=== PATIENT | male | born 1945 | race Caucasian/White ===

== ENCOUNTER 2022-06-20 13:58 | Outpatient (CLI) | payer MEDICARE, SELFPAY ==
--- OUTSIDE RECORDS SUMMARY | 2022-06-20 14:09 | XMS_ITS | Encounter Summary ---
:1945 Author Organization [place] Address [address] [place] [address] Care Team Providers Name Role Phone Adonis Grullon PA-C Unavailable Ruddy Giron DPM Unavailable Thomas Giron MD Primary Care Provider Thomas Giron MD Unavailable Reason for Visit Reason Comments Medication Refill Encounter Details Date Type Department Care Team Description 07/26/2021 Refill [facility] Thomas Singleton MD Medication Refill [place] [address] [place] [address] 150 [phone] [place] [address] [phone] Social History Tobacco Use Types Packs/Day Years Used Date Never Smoker Cigars 0 0 Smokeless Tobacco: Never Used Alcohol Use Standard Drinks/Week Comments No 0 (1 standard drink = 0.6 oz pure not fo r about 35 years (as of 2014) alcohol) Alcohol Habits Answer Date Recorded How often do you have a drink Not asked containing alcohol? How many drinks containing alcohol do Not asked you have on a typical day when you are drinking? How often do you have six or more Not asked drinks on one occasion? Comment: not for about 35 years (as of 05/08/20152014) Sex Assigned at Date Recorded Not on file documented as of this encounter Miscellaneous Notes Telephone Encounter - Jae Schwarz RN - 07/26/2021 3:21 PM CST Routing refill request to provider for review/approval because: Routing to PCP to review, last filled by different provider Jae Schwarz RN [facility] Triage Nurse D OUTSOLE STITCHER documented in this encounter Plan of Treatment Not on filedocumented as of this encounter Visit Diagnoses Diagnosis Benign essential hypertension Essential hypertension, benign documented in this encounter Care Teams Screen Printing Supervisor Relationship Specialty Start Date End Date Thomas Giron MD PCP - General Internal Medicine 07/09/[address] [place] [address] Adonis Grullon, Assigned Neuroscience 11/29/20 PA-C Provider [address] [place] [id number] Ruddy Giron, Assigned Musculoskeletal 01/28/21 DPM Provider [address] [facility] [address] [place], [place] [id number] Thomas Giron MD Assigned PCP 06/24/[address] [place] [address] documented as of this encounter
--- OUTSIDE RECORDS SUMMARY | 2022-06-20 14:09 | XMS_ITS | Encounter Summary ---
:1945 Author Organization [place] Address [address] [facility] [place] [address] Care Team Providers Name Role Phone Adonis Grullon PA-C Unavailable Ruddy Giron DPM Unavailable Thomas Giron MD Primary Care Provider Thomas Giron MD Unavailable Reason for Visit Reason Comments Medication Refill Encounter Details Date Type Department Care Team Description 05/13/2022 Refill [facility] Thomas Giron MD Medication Refill [place] [address] [facility] [address] [facility], [address] [place] [address] [place] [address] [phone] Social History Tobacco Use Types Packs/Day Years [...] this encounter Miscellaneous Notes Telephone Encounter - Camilla Gastelum RN - 05/14/2022 4:01 PM CDT Prescription approved per [facility] Refill Protocol. Camilla Gastelum BOOKMAKER MAP MSN [facility] [place] documented in this encounter Plan of Treatment Not on filedocumented as of this encounter Visit Diagnoses Diagnosis Routine general medical examination at a health care facility documented in this encounter Care Teams Surgery Scheduler Relationship Specialty Start Date End Date Thomas Giron MD PCP - General Internal Medicine 07/09/[address] [place] [address] Adonis Grullon, Assigned Neuroscience 11/29/20 PA-C Provider [address] [place] [phone] Ruddy Giron, Assigned Musculoskeletal 01/28/21 DPM Provider [address] [place], [place] [address] Thomas Giron MD Assigned PCP 06/24/[address] [place] [id number] documented as of this encounter
--- OUTSIDE RECORDS SUMMARY | 2022-06-20 14:09 | XMS_ITS | Encounter Summary ---
:1945 Author Organization [place] Address [address] [place] [address] Care Team Providers Name Role Phone Adonis Grullon PA-C Unavailable Ruddy Giron DPM Unavailable Thomas Giron MD Primary Care Provider Thomas Giron MD Unavailable Reason for Visit Reason Onset Date Comments Forms 07/09/2021 disability parking c ert form Encounter Details Date Type Department Care Team Description 07/09/2021 [facility] Thomas Giron, Forms (disability Clinic Angy WISDOM parking cert form) [address] [facility], [address] [facility] [address] [place] [address] [place] [address] Social History Tobacco Use Types Packs/Day Years [...] Assigned at Date Recorded Not on file COVID-19 Exposure Response Date Recorded In the last month, have you been in contact Unable to assess 06/20/2021 9:47 PM CDT with someone who was confirmed or suspected to have Coronavirus / COVID-19? documented as of this encounter Miscellaneous Notes Telephone Encounter - Jade Ward - 07/10/2021 2:54 PM CDT Completed for mailed to Pt. Copy sent to [facility] and placed in accordion file-[place] Pod Telephone Encounter - Jade Ward - 07/10/2021 12:18 PM CDT Form placed on Dr. Giron' desk Telephone Encounter - Natalee Carter - 07/09/2021 12:10 PM CDT Forms/Letter Request Name of form/letter: disability parking cert form Do we have the form/letter: Yes: at [facility] When is form/letter needed by: selwyn How would you like the form/letter returned: Mail envelop included with form Okay to leave a detailed message? No Cell number on file: Telephone Information: documented in this encounter Plan of Treatment Not on filedocumented as of this encounter Visit Diagnoses Not on filedocumented in this encounter Care Teams Deputy Register Of Deeds Relationship Specialty Start Date End Date Thomas Giron MD PCP - General Internal Medicine 07/09/21 [address] [place] [address] Adonis Grullon, Assigned Neuroscience 11/29/20 PA-C Provider [address] [place] [id number] Ruddy Giron, Assigned Musculoskeletal 01/28/21 DPM Provider [address] [facility] [address] [place] [address] Thomas Giron MD Assigned PCP 06/24/21 [address] [place], [place] [id number] documented as of this encounter
--- OUTSIDE RECORDS SUMMARY | 2022-06-20 14:09 | XMS_ITS | Encounter Summary ---
:1945 Author Organization [place] Address [facility] [place] [address] Care Team Providers Name Role Phone RichaAdonis perez Keon GREENE Unavailable Thomas Singleton MD Primary Care Provider Ruddy GironM Unavailable Thomas Singleton MD Unavailable Encounter Details Date Type Department Care Team Description 06/20/2021 Travel Social History Tobacco Use Types Packs/Day Years [...] / COVID-19? documented as of this encounter Plan of Treatment Not on filedocumented as of this encounter Visit Diagnoses Not on filedocumented in this encounter Care Teams Highballer Relationship Specialty Start Date End Date Thomas Singleton MD PCP - General Internal Medicine 01/10/21 07/08/[address] [place] [phone] Adonis Grullon, Assigned Neuroscience 11/29/20 PA-C Provider [address] [place], [place] [phone] Ruddy Giron, Assigned Musculoskeletal 01/28/21 DPM Provider [address] [facility] [address] [place] [address] Thomas Singleton MD Assigned PCP 02/25/21 06/23/[address] [place] [phone] documented as of this encounter
--- OUTSIDE RECORDS SUMMARY | 2022-06-20 14:09 | XMS_ITS | Encounter Summary ---
:1945 Author Organization [place] Address [address] [place] [address] Care Team Providers Name Role Phone Adonis Grullon PA-C Unavailable Ruddy Girno DPM Unavailable Thomas Giron MD Primary Care Provider Thomas Giron MD Unavailable Reason for Visit Reason Comments Medication Refill Encounter Details Date Type Department Care Team Description 11/05/2021 Refill [facility] Thomas Singleton MD Medication Refill [place] [address] [place] [address] [phone] [place] [address] [phone] Social History Tobacco Use Types Packs/Day Years [...] this encounter Miscellaneous Notes Telephone Encounter - Sherry Beavers RN - 11/05/2021 5:39 PM CST Prescription approved per [facility] Refill Protocol. Sherry Booker RN EP Triage E ASSISTANT documented in this encounter Plan of Treatment Not on filedocumented as of this encounter Visit Diagnoses Diagnosis Benign essential hypertension Essential hypertension, benign documented in this encounter Care Teams Technical Information Specialist Relationship Specialty Start Date End Date Thomas Giron MD PCP - General Internal Medicine 07/09/[address] [place], [place] [address] Adonis Grullon, Assigned Neuroscience 11/29/20 PA-C Provider [address] [place] [phone] Ruddy Giron, Assigned Musculoskeletal 01/28/21 DPM Provider [address] [facility] [address] [place], [place] [address] Thomas Giron MD Assigned PCP 06/24/[address] [place], [place] [address] documented as of this encounter
--- OUTSIDE RECORDS SUMMARY | 2022-06-20 14:09 | XMS_ITS | Encounter Summary ---
:1945 Author Organization [place] Address [address] [facility] [place] [address] Care Team Providers Name Role Phone Adonis Grullon PA-C Unavailable Ruddy Giron DPM Unavailable Thomas Giron MD Primary Care Provider Thomas Giron MD Unavailable Reason for Visit Reason Comments Medication Refill Encounter Details Date Type Department Care Team Description 05/20/2022 Refill [facility] Thomas Giron MD Medication Refill [place] [address] [facility] [address] [facility], [address] [place] [address] [place] [address] [phone] Social History Tobacco Use Types Packs/Day Years [...] this encounter Miscellaneous Notes Telephone Encounter - Julianna Aly RN - 05/22/2022 12:43 PM CDT Prescription approved per [facility] Refill Protocol. 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
--- OUTSIDE RECORDS SUMMARY | 2022-06-20 14:09 | XMS_ITS | Encounter Summary ---
:1945 Author Organization [place] Address [address] [facility] [place] [address] Care Team Providers Name Role Phone Adonis Grullon PA-C Unavailable Ruddy Giron DPM Unavailable Thomas Giron MD Primary Care Provider Thomas Giron MD Unavailable Encounter Details Date Type Department Care Team Description 07/09/2021 Telephone [facility] Thomas Singleton MD [address] [phone] (Wo rk) Social History Tobacco Use Types Packs/Day Years [...] on filedocumented in this encounter Care Teams Lifeguard Relationship Specialty Start Date End Date Thomas Giron MD PCP - General Internal Medicine 07/09/[address] [place] [address] Adonis Grullon, Assigned Neuroscience 11/29/20 PA-C Provider [address] [place] [phone] Ruddy Giron, Assigned Musculoskeletal 01/28/21 DPM Provider [address] [facility] [address] [place], [place] [address] Thomas Giron MD Assigned PCP 06/24/[address] [place] [address] documented as of this encounter
--- OUTSIDE RECORDS SUMMARY | 2022-06-20 14:09 | XMS_ITS | Clinical Summary ---
:1945 Author Organization [place] Address [address] [place] [address] Care Team Providers Name Role Phone Adonis Grullon PA-C Unavailable Mack Ruddy Wang DPM Unavailable Thomas Giron MD Primary Care Provider Thomas Giron MD Unavailable Allergies No known active allergies Medications Medication Sig Dispensed Refills Start Date End Date Status order for DME Equipment being ordered: CPAP 0 Active Patient Ruddy Calhoun was set up at [place] on May 25, 2015. Patient received a Resmed Airsense 10 Auto. Pressures were set at Auto 5 - 15 cm H2O. Patient? s ramp is 0 cm H2O for Off and FLEX/EPR is A Flex 2. Patient receiv ed a [employer] Mask name: Simplus Full Face mask Size Medium, heated tubing and heated humidifier. Patient is enrolled in the STM Program and does need to meet comp liance. Patient has a follow up on TBD with Chip Antonio MAI dorzolamide-timolo INSTILL 1 DROP 2 10/29/2018 Active l (COSOPT) 2-0.5 % INTO BOTH EYES ophthalmic TWICE DAILY solution lisinopril-hydroch TAKE 1 TABLET BY 90 tablet 1 11/05/2021 Active lorothiazide MOUTH EVERY DAY (ZESTORETIC) 20-25 MG tabletIndications: Benign essential hypertension finasteride TAKE 1 TABLET (5 90 tablet 0 05/21/2022 Active (PROSCAR) 5 MG MG) BY MOUTH tabletIndications: DAILY PATIENT Routine general NEEDS TO medical SCHEDULE examination at a [facility] care facility allopurinol TAKE 1 TABLET BY 90 tablet 0 05/22/2022 Active (ZYLOPRIM) 300 MG MOUTH EVERY DAY tabletIndications: Idiopathic chronic gout of multiple sites without tophus triamterene-HCTZ 5-2 PER INSUR. 90 capsule 0 06/06/2022 Active (DYAZIDE) 37.5-25 TAKE 1 CAPSULE MG BY MOUTH EVERY capsuleIndications DAY : Benign essential hypertension allopurinol Take 1 tablet 90 tablet 2 07/26/2021 Dis continued (ZYLOPRIM) 300 MG (300 mg) by 2 tabletIndications: mouth daily Idiopathic chronic gout of multiple sites without tophus triamterene-HCTZ 5-2 PER INSUR. 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 Provider to review Essential hypertension 05/08/2015 Resolved Problems Problem Noted Date Resolved Date Obesity (BMI 35.0-39.9) with comorbidity 12/04/2018 11/13/2020 Encounters Date Type Specialty Care Team Description 06/05/2022 Refill Family Practice Thomas Singleton MD Medic ation Refill 05/20/2022 Refill Family Practice Thomas Giron MD Medic ation Refill 05/19/2022 Refill Family Practice Thomas Giron MD Medic ation Refill 05/13/2022 Refill Family Practice Thomas Giron MD Medic ation Refill from Last 3 Months Immunizations Name Administration Dates Next Due COVID-19,PF,Tavo 11/24/2020 HEPA 04/09/2005, 05/14/2000 HepB 03/30/2001, 06/16/2000, 05/14/2000 Influenza (High Dose) 3 valent vaccine 09/25/2016 Influenza (IIV3) PF 07/23/2012, 07/16/2006 Meningococcal (Menomune??) 03/27/2012, 04/09/2005, 0 Pneumo Conj 13-V (2010&after) 09/20/2014 Pneumococcal 23 valent 03/27/2012 Poliovirus, inactivated (IPV) 05/14/2000 TD (ADULT, 7+) 04/09/2005, 05/14/2000 TDAP Vaccine (Adacel) 09/20/2014, 12/12/2008 Tdap (Adult) Unspecified Formulation 12/19/2005 Typhoid IM 04/09/2005, 04/26/2002 Typhoid Oral 12/12/2008 Yellow Fever 03/27/2012, 06/16/2000 Family History Medical History Relation Comments Cerebrovascular Disease Mother Diabetes Sister Relation Status Comments Mother Sister Social History Tobacco Use Types Packs/Day Years Used Date Never Smoker Cigars 0 0 Smokeless Tobacco: Never Used Tobacco Cessation: Counseling Given: Yes Alcohol Use Standard Drinks/Week Comments No 0 [...] Assigned at Date Recorded Not on file Last Filed Vital Signs Vital Sign Reading Time Taken Comments Blood Pressure 130/81 06/05/2021 7:29 AM CDT Pulse 68 06/05/2021 7:29 AM CDT Temperature 36.6 ??C (97.8 ??F) 06/05/2021 7:29 AM CDT Respiratory Rate 20 06/05/2021 7:29 AM CDT Oxygen Saturation 94% 06/05/2021 7:29 AM CDT Inhaled Oxygen Concentration - - Weight 107 kg (236 lb) 06/05/2021 7:29 AM CDT Height 167.6 cm (5' 6) 06/05/2021 7:29 AM CDT Body Mass Index 38.09 06/05/2021 7:29 AM CDT Plan of Treatment Health Maintenance Due Date Last Done Comments ANNUAL REVIEW OF HM ORDERS 1945 CT COLONOGRAPHY 1945 FIT-DNA (Cologuard) 1945 FLEX SIG 1945 COLONOSCOPY 1956 HEPATITIS C SCREENING 1964 ZOSTER IMMUNIZATION (1 of 1996 2) AORTIC ANEURYSM SCREENING 2011 (SYSTEM ASSIGNED) COVID-19 Vaccine (2 - 01/19/2021 11/24/2020 Booster for Tavo series) PHQ-2 (once per calendar 09/15/2021 06/05/2021, 03/06/2021, year) 11/13/2020, Additional history exists INFLUENZA VACCINE (#1) 2022 09/25/2016, 07/23/2012, 07/16/2006 FALL RISK ASSESSMENT 06/05/2022 06/05/2021, 11/13/2020, 03/29/2020, Additional history exists MEDICARE ANNUAL WELLNESS 06/05/2022 06/05/2021, 06/05/2021, VISIT 03/29/2020, Additional history exists COLORECTAL CANCER SCREENING 06/18/2022 FIT 06/18/2022 06/18/2021, 02/01/2019, 05/15/2017 DTAP/TDAP/TD IMMUNIZATION 09/20/2024 09/20/2014, 12/12/2008 , (6 - Td or Tdap) 12/19/2005, Additional history exists ADVANCE CARE PLANNING 06/05/2026 06/05/2021, 04/22/2020 LIPID 06/05/2026 06/05/2021, 03/29/2020, 01/26/2019, Additional history exists IPV IMMUNIZATION Aged Out 05/14/2000 No longer eligi ble based on patient 's age to complete this topic HEPATITIS B IMMUNIZATION Aged Out 03/30/2001, 06/16/2000, No longer eligible 05/14/2000 based on patient 's age to complete this topic MENINGITIS IMMUNIZATION Aged Out 03/27/2012, 04/09/2005, No longer eligible 06/16/2000 based on patient 's age to complete this topic Pneumococcal Vaccine: 65+ Completed 09/20/2014, 03/27/2012 Years Medical Devices Implanted Type Area Spinner Open End Device Shelf Model / Identifier Expiration Serial / Lot Date 5.5mm Footprint Suture [place] Left: [employer] 01/03/2021 [id number] / Implanted: Qty: 1 on 12/09/2018 by Ammy Grigsby MD at [facility] / [id number] Insurance Payer Benefit Plan / Subscriber ID Effective Dates Phone Addre ss Type Group BCBS BCBS MEDICARE [id number] 2018-Luis Miguel [phone] [address] [address] Medicare ADVANTAGE t 0 [place] [address] Care Teams Entertainment Agent Relationship Specialty Start Date End Date Thomas Giron MD PCP - General Internal Medicine 07/09/[address] [place] [address] Adonis Grullon, Assigned Neuroscience 11/29/20 PA-C Provider [address] [place] [phone] Ruddy Giron, Assigned Musculoskeletal 01/28/21 DPM Provider [address] [facility] [address] [place] [address] Thomas Giron MD Assigned PCP 06/24/[address] [place] [address]
--- OUTSIDE RECORDS SUMMARY | 2022-06-20 14:09 | XMS_ITS | Encounter Summary ---
:1945 Author Organization [place] Address [address] [facility] [place] [address] Care Team Providers Name Role Phone Adonis Grullon PA-C Unavailable Ruddy Giron DPM Unavailable Thomas Giron MD Primary Care Provider Thomas Giron MD Unavailable Reason for Visit Reason Onset Date Comments Refill Request 07/26/2021 allopurinol Encounter Details Date Type Department Care Team Description 07/26/2021 Refill [facility] None Ref ill Request (allopurinol) [address], [address] [place] [address] Social History Tobacco Use Types Packs/Day Years [...] this encounter Miscellaneous Notes Telephone Encounter - Ana Maria Causey RN - 07/26/2021 3:43 PM CST Prescription approved per [facility] Refill Protocol. 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
--- OUTSIDE RECORDS SUMMARY | 2022-06-20 14:09 | XMS_ITS | Encounter Summary ---
:1945 Author Organization [place] Address [address] [facility] [place] [address] Care Team Providers Name Role Phone Adonis Grullon PA-C Unavailable Ruddy Giron DPM Unavailable Thomas Giron MD Primary Care Provider Thomas Giron MD Unavailable Reason for Visit Reason Onset Date Comments Needs prescription for machine 11/26/2021 Encounter Details Date Type Department Care Team Description 11/26/2021 Telephone [facility] Coordinator, Ur Needs p rescription for [facility] machine [address] [address] Social History Tobacco Use Types Packs/Day Years [...] this encounter Miscellaneous Notes Telephone Encounter - Adonis Grullon PA-C - 11/27/2021 12:05 PM CDT Order placed for replacement machine. I left a message stating the order was placed and that if he wanted the order forwarded somewhere other than [facility], call the clinic so we can know where to send it. Adonis Grullon PA-C Telephone Encounter - Bibiana Ferguson - 11/26/2021 1:33 PM CDT Reason for Call: Other call back Detailed comments: Pt says Dr advised him to get a different/new machine, pt has checked machine is in and available, but now pt needs a prescription to get it, can Dr. Grullon write prescription for pt,please call pt to advise Phone Number Patient can be reached at: Home number on file [phone] (home) Best Time: ANY Can we leave a detailed message on this number? YES Call taken on 11/26/2021 at 1:34 PM by Bibiana Ferguson documented in this encounter Plan of Treatment Not on filedocumented as of this encounter Visit Diagnoses Diagnosis DIANNE (obstructive sleep apnea) - Primary Obstructive sleep apnea (adult) (pediatr ic) documented in this encounter Care Teams Acute Dialysis Nurse Relationship Specialty Start Date End Date Thomas Giron MD PCP - General Internal Medicine 07/09/[address] [place] [address] Adonis Grullon, Assigned Neuroscience 11/29/20 JC Provider [address] [place] [address] Ruddy Giron, Assigned Musculoskeletal 01/28/21 DPM Provider [address] [facility] [address] [place], [place] [address] Thomas Giron MD Assigned PCP 06/24/[address] [place] [address] documented as of this encounter
--- OUTSIDE RECORDS SUMMARY | 2022-06-20 14:09 | XMS_ITS | Encounter Summary ---
:1945 Author Organization [place] Address [address] [place] [address] Care Team Providers Name Role Phone Adonis Grullon PA-C Unavailable Ruddy Giron DPM Unavailable Thomas Giron MD Primary Care Provider Thomas Giron MD Unavailable Reason for Visit Reason Comments Medication Refill Encounter Details Date Type Department Care Team Description 05/19/2022 Refill [facility] Thomas Giron MD Medication Refill [place] [address] [facility] [address] [facility], [address] [place] [address] [place] [address] [phone] Social History Tobacco Use Types Packs/Day Years [...] Telephone Encounter - Camilla Gastelum RN - 05/21/2022 10:55 AM CDT 90 tablets with 0 refills last sent on 05/14/2022 No change in pharmacy. Last OV with Dr. Giron was 06/05/2021 No future appointment scheduled. Prescription approved per [facility] Refill Protocol. MyChart message sent. Camilla Gastelum INSURANCE VERIFICATION REP MSN [facility] documented in this encounter Plan of Treatment Not on filedocumented as of this encounter Visit Diagnoses Diagnosis Routine general medical examination at a health care facility documented in this encounter Care Teams Brick Pointer Relationship Specialty Start Date End Date Thomas Giron MD PCP - General Internal Medicine 07/09/[address] [place], [place] [phone] Adonis Grullon, Assigned Neuroscience 11/29/20 PA-C Provider [address] [place], [place] [phone] Ruddy Giron, Assigned Musculoskeletal 01/28/21 DPM Provider [address] [facility] [address] [place] [address] Thomas Giron MD Assigned PCP 06/24/[address] [place], [place] [address] documented as of this encounter
--- OUTSIDE RECORDS SUMMARY | 2022-06-20 14:09 | XMS_ITS | Encounter Summary ---
:1945 Author Organization [place] Address [facility] [place] [address] Care Team Providers Name Role Phone RichaAdonis perez Keon GREENE Unavailable Thomas Singleton MD Primary Care Provider Ruddy GironM Unavailable Thomas Singleton MD Unavailable Encounter Details Date Type Department Care Team Description 06/05/2021 Travel Social History Tobacco Use Types Packs/Day [...] last month, have you been in contact with No / Unsure 06/05/2021 7:16 AM CDT someone who was confirmed or suspected to have Coronavirus / COVID-19? documented as of this encounter Plan of Treatment Not on filedocumented as of this encounter Visit Diagnoses Not on filedocumented in this encounter Care Teams Tinsmith Helper Relationship Specialty Start Date End Date Thomas Singleton MD PCP - General Internal Medicine 01/10/21 07/08/[address] [place] [address] [phone] Adonis Grullon, Assigned Neuroscience 11/29/20 PA-C Provider [address] [place], [place] [phone] Ruddy Giron, Assigned Musculoskeletal 01/28/21 DPM Provider [address] [facility] [address] [place] [address] Thomas Singleton MD Assigned PCP 02/25/21 06/23/[address] [place] [phone] documented as of this encounter
--- OUTSIDE RECORDS SUMMARY | 2022-06-20 14:09 | XMS_ITS | Encounter Summary ---
:1945 Author Organization [place] Address [address] [facility] [address] Care Team Providers Name Role Phone Adonis Grullon PA-C Unavailable Ruddy Giron DPM Unavailable Thomas Giron MD Primary Care Provider Thomas Giron MD Unavailable Reason for Visit Reason Comments Medication Refill Encounter Details Date Type Department Care Team Description 06/05/2022 Refill [facility] Thomas Singleton MD Medication Refill [place] [address] [place] [address] [address] [phone] [place] [address] [phone] Social History Tobacco Use Types Packs/Day Years [...] this encounter Miscellaneous Notes Telephone Encounter - Lianet Jenkins - 06/06/2022 12:53 PM CDT Letter and mychart sent Telephone Encounter - Nadya Simon RN - 06/06/2022 10:24 AM CDT Medication is being filled for 1 time refill only due to: Patient needs to be seen because it has been more than one year since last visit. Routing to [employer]. The Pt is due for a visit with PCP Nadya Velez RN, BSN documented in this encounter Plan of Treatment Not on filedocumented as of this encounter Visit Diagnoses Diagnosis Benign essential hypertension Essential hypertension, benign documented in this encounter Care Teams Self Pay Specialist Relationship Specialty Start Date End Date Thomas Giron MD PCP - General Internal Medicine 07/09/[address] [place] [id number] Adonis Grullon, Assigned Neuroscience 11/29/20 PA-C Provider [address] [place] [address] Ruddy Giron, Assigned Musculoskeletal 01/28/21 DPM Provider [address] [facility] [address] [place], [place] [address] Thomas Giron MD Assigned PCP 06/24/[address] [place] [address] documented as of this encounter
--- OUTSIDE RECORDS SUMMARY | 2022-06-20 14:09 | XMS_ITS | Encounter Summary ---
:1945 Author Organization [place] Address [address] [facility] [address] Care Team Providers Name Role Phone Adonis Grullon PA-C Unavailable Thomas Singleton MD Primary Care Provider Ruddy Giron DPM Unavailable Thomas Singleton MD Unavailable Encounter Details Date Type Department Care Team Description 06/18/2021 [facility] Encounter for [facility] Laboratory adult health care examinatio n [address] [place], [place] [phone] Social History Tobacco Use Types Packs/Day Years [...] Not on filedocumented as of this encounter Procedures Procedure Name Priority Date/Time Associated Diagnosis Comme nts FECAL COLORECTAL Routine 06/18/2021 12:00 Encounter for Result s for this CANCER SCREEN FIT PM CDT preventative adult proc edure are in health care the results examination section. documented in this encounter Results Fecal colorectal cancer screen (FIT) (06/18/2021 12:00 PM CDT) Analysis Performed At Patho logist Time Signature Occult Blood Negative Negative 06/20/2021 [facility] Screen FIT 10:12 PM CDT Specimen Anatomical Collection Method Collection Time Receive d Time (Source) Location / / Volume Laterality Stool RECTAL CONTENTS / Non-blood 06/18/2021 12:00 2020 9:48 Unknown Collection / PM CDT PM CDT Unknown Thomas Giron MD LAB - STOOLS ORDERABLES Performing Organization Address City/State/ZIP Code Phon [place] [address] Lab [address] [facility] [address], [address] [place] [address], [place] [address] [facility], Room 3580 documented in this encounter Visit Diagnoses Diagnosis Encounter for preventative adult health care examination documented in this encounter Care Teams Flexographic Press Operator Relationship Specialty Start Date End Date Thomas Singleton MD PCP - General Internal Medicine 01/10/21 07/08/21 [address] [place] [address] [phone] Adonis Grullon, Assigned Neuroscience 11/29/20 PA-C Provider [address] [place], [place] [phone] Ruddy Giron, Assigned Musculoskeletal 01/28/21 DPM Provider [address] [facility] [address] [place] [address] Thoams Singleton MD Assigned PCP 02/25/21 06/23/[address] [place] [address] [phone] documented as of this encounter
--- OUTSIDE RECORDS SUMMARY | 2022-06-20 14:09 | XMS_ITS | Encounter Summary ---
:1945 Author Organization [place] Address [address] [facility] [place] [address] Care Team Providers Name Role Phone Adonis Grullon PA-C Unavailable Ruddy Giron DPM Unavailable Thomas Giron MD Primary Care Provider Thomas Giron MD Unavailable Reason for Visit Reason Comments Medication Refill Encounter Details Date Type Department Care Team Description 11/05/2021 Refill [facility] Thomas Giron MD Medication Refill [place] [address] [facility] [address] [facility], [address] [place] [address] [place] [address] [phone] Social History Tobacco Use Types Packs/Day Years [...] 11/05/2021 5:39 PM CST Prescription approved per [facility] Refill Protocol. Sherry Booker RN EP Triage H DEVELOPER documented in this encounter Plan of Treatment Not on filedocumented as of this encounter Visit Diagnoses Diagnosis Benign essential hypertension Essential hypertension, benign documented in this encounter Care Teams Forming Acid Dumper Relationship Specialty Start Date End Date Thomas Giron MD PCP - General Internal Medicine 07/09/[address] [place], [place] [phone] Adonis Grullon, Assigned Neuroscience 11/29/20 PA-C Provider [address] [place] [phone] Ruddy Giron, Assigned Musculoskeletal 01/28/21 DPM Provider [address] [facility] [address] [place], [place] [address] Thomas Giron MD Assigned PCP 06/24/[address] [place], [place] [address] documented as of this encounter
--- OUTSIDE RECORDS SUMMARY | 2022-06-20 14:10 | XMS_ITS | Encounter Summary ---
:1945 Author Organization [place] Address [address] [place] [address] Care Team Providers Name Role Phone Juan José Michelle MD Primary Care Provider Juan José Michelle MD Unavailable Reason for Visit Reason Onset Date Comments Refill Request 09/06/2020 lisinopril-hctz Encounter Details Date Type Department Care Team Description 09/06/2020 Refill [facility] Juan José Michelle MD Refill Request [place] [address] [facility] (lisinopril-hctz) [address] [facility] [address] [place] [phone] (Wo rk) Social History Tobacco Use Types Packs/Day Years Used Date Never Smoker Cigars Smokeless Tobacco: Never Used Alcohol Use Standard [...] on file documented as of this encounter Plan of Treatment Not on filedocumented as of this encounter Visit Diagnoses Diagnosis Benign essential hypertension Essential hypertension, benign documented in this encounter Care Teams Pain Management Nurse Relationship Specialty Start Date End Date Juan José Michelle MD PCP - General Internal Medicine 05/08/15 01/09/21 Juan José Michelle MD Assigned PCP 07/26/16 12/30/20 [address] [facility] 150 [facility] [place] [phone] documented as of this encounter
--- OUTSIDE RECORDS SUMMARY | 2022-06-20 14:10 | XMS_ITS | Encounter Summary ---
:1945 Author Organization [place] Address [address] [place] [address] Care Team Providers Name Role Phone Juan José Michelle MD Primary Care Provider Juan José Michelle MD Unavailable Reason for Visit Reason Onset Date Comments RECHECK 04/05/2020 recheck pap use, d/l in synopsis Encounter Details Date Type Department Care Team Description 04/05/2020 Virtual Visit [facility] Adonis Grullon DIANNE ([facility] Angy Herbert PA-C sleep apnea) (Primary [address]) [place] [address] [address] [place] [address] [place] [address] Social History Tobacco Use Types Packs/Day Years [...] been in contact with No / Unsure 04/04/2020 11:30 AM CDT someone who was confirmed or suspected to have Coronavirus / COVID-19? documented as of this encounter Last Filed Vital Signs Vital Sign Reading Time Taken Comments Blood Pressure - - Pulse - - Temperature - - Respiratory Rate - - Oxygen Saturation - - Inhaled Oxygen Concentration - - Weight 97.5 kg (215 lb) 04/04/2020 11:28 AM CDT Height 167.6 cm (5' 5.98) 04/04/2020 11:28 AM CDT Body Mass Index 34.72 04/04/2020 11:28 AM CDT documented in this encounter Progress Notes Adonis Grullon PA-C - 04/05/2020 10:00 AM CDT Ruddy Calhoun is a 74 year old male who is being evaluated via a billable telephone visit. The patient has been notified of following: This telephone visit will be conducted via a call between you and your physician/provider. We have found that certain health care needs can be provided without the need for a physical exam. This service lets us provide the care you need with a short phone conversation. If a prescription is necessary we can send it directly to your pharmacy. If lab work is needed we can place an order for that and you can then stop by our lab to have the test done at a later time. Telephone visits are billed at different rates depending on your insurance coverage. During this emergency period, for some insurers they may be billed the same as an in-person visit. Please reach out to your insurance provider with any questions. If during the course of the call the physician/provider feels a telephone visit is not appropriate, you will not be charged for this service. Patient has given verbal consent for Telephone visit? Yes What phone number would you like to be contacted at? [phone] How would you like to obtain your AVS? Mail a copy Does not have video capability. CPAP Follow-Up Visit: Date on this visit: 04/05/2020 Ruddy Calhoun has a follow-up visit today to review his CPAP use for DIANNE. His medical history is significant for HTN, gout, obesity, hyperlipidemia. ?? His main symptoms were loud snoring and observed apneas. Diagnostic home study showed (05/11/2015): Wt was 234#. AHI: 56.2/hr TRE: 47.2/hr Supine AHI: 49.7/hr Lateral AHI: 52.9/hr on left and 59/hr on right?? Average SpO2: 88% Lowest Desaturation: 64%. Time Spent Below 89%: 198.3 minutes. He had a CPAP titration study on 08/29/2015. CPAP was titrated to 11 cm, but REM was not obtained supine.?? He loves CPAP. He has nothing new to report. PAP machine: ResMed. Pressure settings: 11-15 cm The compliance data shows that the patient used the CPAP for 30/30 nights, 100% of nights for >4 hours. The 95th% pressure is 12.2 cm. The 95th% leak is 8.3 lpm. The average nightly usage is 422 min. The average AHI is 0.9/hr. Interface: Mask: full face mask. Cleans everything about once per week. He replaces the cushion if he starts tonotice leak. Chin strap: No Leak: No Using Humidifier: Yes. It rarely will run out of water. He is comfortable with the temperature and humidity level. Condensation in hose or mask: No Difficulties with therapy: [-] Snoring with CPAP: his has not commented [-] Difficulty tolerating the pressure: wonders if it could be higher. Most noticeable when he firstputs it on. [-] Epistaxis/dry nose: [-] Nasal congestion: once in a while [-] Dry mouth: once in a while [-] Mouth breathing: [-] Pain/skin breakdown: a little on the bridge of his nose. Just redness, does not hurt, nothing hecan't live with. Improvements noted with CPAP: He depends on the machine. [+] waking up more refreshed [+] sleeping better with less arousals [+] nocturia improved [+] improved energy level during the day Weight change since sleep study: Bedtime: 10:30 PM. He falls asleep quickly. Wake time: 7:30 AM. He wakes to urinate 1-2 times per night. About half of nights, he may be up for an hour. He is not bothered by that. He considers it his creative time. He naps for 20-30 minutes most days in the afternoon. He denies inadvertent dozing. Past medical/surgical history, family history, social history, medications and allergies were reviewed. Problem List: Patient Active Problem List Diagnosis Date Noted ??? Routine general medical examination at a health care facility 01/26/2019 Priority: Medium ??? Obesity (BMI 35.0-39.9) with comorbidity (H) 12/04/2018 Priority: Medium ??? Idiopathic chronic gout of multiple sites without tophus 11/29/2018 Priority: Medium ? ? Hyperlipidemia LDL goal <130 11/29/2018 Priority: Medium ??? Encounter for routine adult health examination without abnormal findings 11/29/2018 Priority: Medium ??? Vitamin D deficiency 12/03/2017 Priority: Medium ??? Class 2 obesity due to excess calories without serious comorbidity with body mass index (BMI) of35.0 to 35.9 in adult 11/27/2017 Priority: Medium ??? Gout 08/18/2016 Priority: Medium ??? Seborrheic keratosis, inflamed 08/18/2016 Priority: Medium ??? DIANNE (obstructive sleep apnea) 05/17/2015 Priority: Medium ??? Sleep related hypoventilation/hypoxemia in other disease 05/17/2015 Priority: Medium Problem list name updated by automated process. Provider to review ??? Essential hypertension 05/08/2015 Priority: Medium Impression/Plan: (G47.33) DIANNE (obstructive sleep apnea) (primary encounter diagnosis) Comment: Brayan is doing very well with CPAP. Use is very regular and he benefits a lot from use. Slight irritation at nasal bridge. His machine will be 5 years old in May but seems to be working fine. He has prolonged middle of the night awakenings, but they do not bother him and he does not wantto change his schedule. Plan: Comprehensive DME Continue auto CPAP 11-15 cm. A prescription was written for new supplies. We talked about nasal gelpads and mask liners for skin irritation. We reviewed recommendations for cleaning and replacing supplies. He says he only replaces supplies when necessary, not just because they are covered. He will follow up with me in about 1 year(s). Fifteen minutes (10:09 AM-10:26 AM) spent with patient, all of which were spent counseling, consulting, coordinating plan of care. Adonis Grullon PA-C CC: No ref. provider found documented in this encounter Nursing Notes Maddy Brewer - 04/05/2020 10:00 AM CDT Chief Complaint Patient presents with ??? RECHECK recheck pap use, d/l in synopsis Initial Ht 1.676 m (5' 5.98) Wt 97.5 kg (215 lb) BMI 34.72 kg/m?? Estimated body mass index is 34.72 kg/m?? as calculated from the following: Height as of this encounter: 1.676 m (5' 5.98). Weight as of this encounter: 97.5 kg (215 lb). Medication Reconciliation: complete DME:yes, d/l in synopsis. Alberto Mitchell MA - 04/05/2020 10:00 AM CDT 1 year reminder card will be mailed to pt. KASH Joshi documented in this encounter Plan of Treatment Not on filedocumented as of this encounter Visit Diagnoses Diagnosis DIANNE (obstructive sleep apnea) - Primary Obstructive sleep apnea (adult) (pediatr ic) documented in this encounter Care Teams Air Intelligence Officer Relationship Specialty Start Date End Date Juan José Michelle MD PCP - General Internal Medicine 05/08/15 01/09/21 Juan José Michelle MD Assigned PCP 07/26/16 12/30/20 [address] [place] [phone] documented as of this encounter
--- OUTSIDE RECORDS SUMMARY | 2022-06-20 14:10 | XMS_ITS | Encounter Summary ---
:1945 Author Organization [place] Address [facility] [place] [address] Care Team Providers Name Role Phone Juan José Michelle MD Primary Care Provider Juan José Michelle MD Unavailable Reason for Visit Reason Onset Date Comments Refill Request 09/23/2020 allopurinol Encounter Details Date Type Department Care Team Description 09/23/2020 Refill [facility] Juan José Michelle MD Refill Request [place] [address] [facility] (allopurinol) [address] [facility] [address] [place] [address] [phone] (Wo rk) Social History Tobacco Use Types [...] this encounter Miscellaneous Notes Telephone Encounter - Micah Moreno - 09/23/2020 12:24 PM CST Allopurinol 300 mg tablet Summary: TAKE 1 TABLET BY MOUTH EVERY DAY, Disp-90 tablet,R-2, E-Prescribe Start: 01/25/2020 Ord/Sold: 01/25/2020 T HEALTH CLINICAL NURSE SPECIALIST documented in this encounter Plan of Treatment Not on filedocumented as of this encounter Visit Diagnoses Diagnosis 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
--- OUTSIDE RECORDS SUMMARY | 2022-06-20 14:10 | XMS_ITS | Encounter Summary ---
:1945 Author Organization [place] Address [facility] [place] [address] Care Team Providers Name Role Phone RichaAdonis perez Keon GREENE Unavailable Thomas Singleton MD Primary Care Provider Ruddy GironM Unavailable Thomas Singleton MD Unavailable Encounter Details Date Type Department Care Team Description 04/17/2021 Travel Social History Tobacco Use Types Packs/Day [...] been in contact with No / Unsure 04/17/2021 3:38 PM CDT someone who was confirmed or suspected to have Coronavirus / COVID-19? documented as of this encounter Plan of Treatment Not on filedocumented as of this encounter Visit Diagnoses Not on filedocumented in this encounter Care Teams Wreath And Garland Maker Relationship Specialty Start Date End Date Thomas Singleton MD PCP - General Internal Medicine 01/10/21 07/08/[address] [place] [phone] Adonis Grullon, Assigned Neuroscience 11/29/20 PA-C Provider [address] [facility] [address] [place], [place] [phone] Ruddy Giron, Assigned Musculoskeletal 01/28/21 DPM Provider [address] [facility] [address] [place] [address] Thomas Singleton MD Assigned PCP 02/25/21 06/23/21 [address] [place] [phone] documented as of this encounter
--- OUTSIDE RECORDS SUMMARY | 2022-06-20 14:10 | XMS_ITS | Encounter Summary ---
:1945 Author Organization [place] Address [address] [facility] [place] [address] Care Team Providers Name Role Phone Juan José Michelle MD Primary Care Provider Juan José Michelle MD Unavailable Reason for Visit Reason Onset Date Comments Forms 09/20/2020 handicap Encounter Details Date Type Department Care Team Description 09/20/2020 Telephone [facility] Juan José Michelle MD Forms (handicap) [place] [address] [facility] [address] [facility], [address] [place] [address] [place] [address] [phone] Social History Tobacco Use Types Packs/Day Years [...] this encounter Miscellaneous Notes Telephone Encounter - Tran Pope N - 09/26/2020 10:45 AM CST Form completed. Copy made and placed in purple pod. Original placed in outgoing mail in Pt-provided envelope. ERCIAL HOUSEKEEPER Telephone Encounter - Tran Pope - 09/20/2020 11:55 AM CST Form was placed on Dr. Michelle's desk. Copy made and placed in purple pod ERCIAL HOUSEKEEPER Telephone Encounter - Tran Pope - 09/20/2020 11:49 AM CST Reason for Call: Form, our goal is to have forms completed with 72 hours, however, some forms may require a visit or additional information. Type of letter, form or note: handicap Who is the form from?: [place] [employer] (if other please explain) Where did the form come from: form was mailed in What clinic location was the form placed at?: [facility] Where the form was placed: Placed on physician's desk What number is listed as a contact on the form?: [phone] (home) Additional comments: Mailed from Pt: Dr. Michelle, My left shoulder is still a problem if I take a fall on the ice. It would be helpful to have a handicap certificate until January 13, 2021 (#9). Thank you for considering this request Call taken on 09/20/2020 at 11:50 AM by Tran Pope ERCIAL HOUSEKEEPER documented in this encounter Plan of Treatment Not on filedocumented as of this encounter Visit Diagnoses Not on filedocumented in this encounter Care Teams Wire Preparation Machine Tender Relationship Specialty Start Date End Date Juan José Michelle MD PCP - General Internal Medicine 05/08/15 01/09/21 Juan José Michelle MD Assigned PCP 07/26/16 12/30/20 [address] [facility] [address] [place] [phone] documented as of this encounter
--- OUTSIDE RECORDS SUMMARY | 2022-06-20 14:10 | XMS_ITS | Encounter Summary ---
:1945 Author Organization [place] Address [address] [place], [place] [address]. [place] [address] Care Team Providers Name Role Phone Juan José Michelle MD Primary Care Provider Juan José Michelle MD Unavailable Encounter Details Date Type Department Care Team Description 11/06/2020 Travel Social History Tobacco Use Types Packs/Day [...] been in contact with No / Unsure 11/06/2020 3:39 PM CONSULTING PROPERTY MANAGER someone who was confirmed or suspected to have Coronavirus / COVID-19? documented as of this encounter Plan of Treatment Not on filedocumented as of this encounter Visit Diagnoses Not on filedocumented in this encounter Care Teams Manufacturing Scheduler Relationship Specialty Start Date End Date Juan José Michelle MD PCP - General Internal Medicine 05/08/15 01/09/21 Juan José Michelle MD Assigned PCP 07/26/16 12/30/20 [address] [facility] [address] [place], [place] [id number] documented as of this encounter
--- OUTSIDE RECORDS SUMMARY | 2022-06-20 14:10 | XMS_ITS | Encounter Summary ---
:1945 Author Organization [place] Address [address] [place], [place] [address]. [place] [address] Care Team Providers Name Role Phone Juan José Michelle MD Primary Care Provider Juan José Michelle MD Unavailable Encounter Details Date Type Department Care Team Description 11/13/2020 Travel Social History Tobacco Use Types Packs/Day [...] been in contact with No / Unsure 11/13/2020 9:41 AM SURVEY RESEARCH PROFESSOR someone who was confirmed or suspected to have Coronavirus / COVID-19? documented as of this encounter Plan of Treatment Not on filedocumented as of this encounter Visit Diagnoses Not on filedocumented in this encounter Care Teams Programs Director Relationship Specialty Start Date End Date Juan José Michelle MD PCP - General Internal Medicine 05/08/15 01/09/21 Juan José Michelle MD Assigned PCP 07/26/16 12/30/[address] [facility] [address] [place], [place] [phone] documented as of this encounter
--- OUTSIDE RECORDS SUMMARY | 2022-06-20 14:10 | XMS_ITS | Encounter Summary ---
:1945 Author Organization [place] Address [facility] [place] [address] Care Team Providers Name Role Phone Adonis Grullon PA-C Unavailable Adonis Grullon PA-C Unavailable Thomas Singleton MD Unavailable Thomas Singleton MD Primary Care Provider Encounter Details Date Type Department Care Team Description 01/25/2021 Travel Social History Tobacco Use Types Packs/Day [...] been in contact with No / Unsure 01/25/2021 3:39 PM CDT someone who was confirmed or suspected to have Coronavirus / COVID-19? documented as of this encounter Plan of Treatment Not on filedocumented as of this encounter Visit Diagnoses Not on filedocumented in this encounter Care Teams Muskrat Trapper Relationship Specialty Start Date End Date Thomas Singleton MD PCP - General Internal Medicine 01/10/21 07/08/[address] [place] [address], [place] [phone] Adonis Grullon, Assigned Neuroscience 11/29/20 [facility] Provider [address] [place] [id number] Adonis Grullon, Assigned Sleep Provider 11/29/20 02/24/21 [place] [address] [place] [id number] Thomas Singleton MD Assigned PCP 12/31/20 02/07/[address] [place] [address], [place] [phone] documented as of this encounter
--- OUTSIDE RECORDS SUMMARY | 2022-06-20 14:10 | XMS_ITS | Encounter Summary ---
:1945 Author Organization [place] Address [facility] [place] [place] [address] Care Team Providers Name Role Phone Adonis Grullon PA-C Unavailable Adonis Grullon PA-C Unavailable Thomas Singleton MD Unavailable Thomas Singleton MD Primary Care Provider Ruddy Giron DPM Unavailable Encounter Details Date Type Department Care Team Description 01/29/2021 Travel Social History Tobacco Use Types Packs/Day [...] been in contact with No / Unsure 01/29/2021 3:42 PM CDT someone who was confirmed or suspected to have Coronavirus / COVID-19? documented as of this encounter Plan of Treatment Not on filedocumented as of this encounter Visit Diagnoses Not on filedocumented in this encounter Care Teams Outsole Splicer Relationship Specialty Start Date End Date Thomas Singleton MD PCP - General Internal Medicine 01/10/21 07/08/21 [address] [place] [phone] Adonis Grullon, Assigned Neuroscience 11/29/20 PA-C Provider [address] [place], [place] [id number] Adonis Grullon, Assigned Sleep Provider 11/29/20 02/24/21 PA-C [address] [place] [id number] Thomas Singleton MD Assigned PCP 12/31/20 02/07/21 [address] [place] [phone] Ruddy Giron, Assigned Musculoskeletal 01/28/21 DPM Provider [address] [facility] [address] [place] [address] documented as of this encounter
--- OUTSIDE RECORDS SUMMARY | 2022-06-20 14:10 | XMS_ITS | Encounter Summary ---
:1945 Author Organization [facility] Address [address] [place] [address] Care Team Providers Name Role Phone Mitchel Adonis Herbert PA-C Unavailable Thomas Singleton MD Primary Care Provider Ruddy Giron DPM Unavailable Thomas Singleton MD Unavailable Reason for Visit Reason Comments Physical Fasting Encounter Details Date Type Department Care Team Description 06/05/[address] [facility] Thomas Giron Encoun ter for preventative adult health care examination (Primary Dx); Clinic Angy WISDOM Encounter for screening for malignant ne oplasm of prostate ; [address] Chronic gout without tophus, unspecified cause, unspecified site; [facility], [address] Encounter for Medicare annual wellness e xa IRENE Dietz [address] IRENE DIETZ [id number] [phone] Social History Tobacco Use Types Packs/Day Years [...] Mass Index 38.09 06/05/2021 7:29 AM CDT documented in this encounter Patient Instructions Patient InstructionsWThomas ocampo MD - 06/05/2021 7:30 AM CDT Images from the original note were not included. Patient Education Personalized Prevention Plan You are due for the preventive services outlined below. Your care team is available to assist you inscheduling these services. If you have already completed any of these items, please share that information with your care team to update in your medical record. Health Maintenance Due Topic Date Due ??? ANNUAL REVIEW OF HM ORDERS Never done ??? Hepatitis C Screening Never done ??? Zoster (Shingles) Vaccine (1 of 2) Never done ??? AORTIC ANEURYSM SCREENING (SYSTEM ASSIGNED) Never done ??? Colorectal Cancer Screening 02/02/2020 ??? Flu Vaccine (1) 05/16/2021 Signs of Hearing Loss?? Hearing much better with one ear can be a sign of hearing loss. Hearing loss is a problem shared by many people. In fact, it is??one of the most common health problems, particularly as people age. Most people age 65 and older have some hearing loss. By age 80, almost everyone does. Hearing loss often occurs slowly over the years. So you may not realize your hearing has gotten worse. Have your hearing checked Call your healthcare provider??if you: ?? Have to strain to hear normal conversation ?? Have to watch other people???s faces very carefully to follow what they???re saying ?? Need to ask people to repeat what they???ve said ?? Often misunderstand what people are saying ?? Turn the volume of the television or radio up so high that others complain ?? Feel that people are mumbling when they???re talking to you ?? Find that the effort to hear leaves you feeling tired and irritated ?? Notice, when using the phone, that you hear better with??one ear than the other [employer] last reviewed this educational content on 09/15/2019 ?? [id number] The [employer]. All rights reserved. This information is not intended as a substitute for professional medical care. Always follow your healthcare professional's instructions. Urinary Incontinence (Male) Urinary incontinence means not being able to control the release of urine from the bladder. Causes Common causes of urinary incontinence in men include: ?? Infection ?? Certain medicines ?? Aging ?? Poor pelvic muscle tone ?? Bladder spasms ?? Obesity ?? Trouble urinating and fully emptying the bladder (urinary retention) Other things that can cause incontinence are: ?? Nervous system diseases ?? Diabetes ?? Sleep apnea ?? Urinary tract infections ?? Prostate surgery ?? Pelvic injury Constipation and smoking have also been identified as risk factors. Symptoms ?? Urge incontinence (overactive bladder). This is a sudden urge to urinate. It occurs even though there may not be much urine in the bladder. The need to urinate often during the night is common. It'sdue to bladder spasms. ?? Stress incontinence. This is urine leakage that you can't control. It can occur with sneezing, coughing, and other actions that put stress on the bladder. Treatment Treatment depends on what is causing the condition. Bladder infections are treated with antibiotics.Urinary retention is treated with a bladder catheter. Home care Follow these guidelines when caring for yourself at home: ?? Don't have any foods and drinks that may irritate the bladder. This includes: ? Chocolate ? Alcohol ? Caffeine ? Carbonated drinks ? Acidic fruits and juices ?? Limit fluids to 6 to 8 cups a day. ?? Lose weight if you are overweight. This will reduce your symptoms. ?? If advised, do regular pelvic muscle-strengthening exercises such as Kegel exercises. ?? If needed, wear absorbent pads to catch urine. Change the pads often. This is for good hygiene and to prevent skin and bladder infections. ?? Bathe daily for good hygiene. ?? If an antibiotic was prescribed to treat a bladder infection, take it until it's finished. Keep taking it even if you are feeling better. This is to make sure your infection has cleared. ?? If a catheter was left in place, keep bacteria from getting into the collection bag. Don't disconnect the catheter from the collection bag. ?? Use a leg band to secure the catheter drainage tube, so it does not pull on the catheter. Drain the collection bag when it becomes full. To do this, use the drain spout at the bottom of the bag. Don't disconnect the bag from the catheter. ?? Don't pull on or try to remove a catheter. The catheter must be removed by a healthcare provider. ?? If you smoke, stop. Ask your provider for help if you can't do this on your own. Follow-up care Follow up with your healthcare provider, or as advised. When to get medical advice Call your healthcare provider right away if any of these occur: ?? Fever over 100.4??F (38??C), or as directed by your provider ?? Bladder pain or fullness ?? Belly swelling, nausea, or vomiting ?? Back pain ?? Weakness, dizziness, or fainting ?? If a catheter was left in place, return if: ? The catheter falls out ? The catheter stops draining for 6 hours ? Your urine gets cloudy or smells bad [employer] last reviewed this educational content on 09/15/2019 ?? [id number] The [employer]. All rights reserved. This information is not intended as a substitute for professional medical care. Always follow your healthcare professional's instructions. documented in this encounter Progress Notes Thomas Giron MD - 06/05/2021 7:30 AM CDT SUBJECTIVE: Ruddy Calhoun is a 75 year old male who presents for Preventive Visit. Overall doing well. Has chronic foot pain. Patient has fallen arches and bilateral bunion deformity.Despite this he continues to be active. No endocrine hematologic or allergic symptoms otherwise known. Denies chest pain no significant shortness of breath. Is working on diet. Patient has been advised of split billing requirements and indicates understanding: Yes Are you in the first 12 months of your Medicare coverage? No Healthy Habits: In general, how would you rate your overall health? Good Frequency of exercise: 2-3 days/week Duration of exercise: Less than 15 minutes Do you usually eat at least 4 servings of fruit and vegetables a day, include whole grains & fiber and avoid regularly eating high fat or junk foods? Yes Taking medications regularly: No Medication side effects: None Ability to successfully perform activities of daily living: No assistance needed Home Safety: No safety concerns identified Hearing Impairment: Difficulty following a conversation in a noisy restaurant or crowded room In the past 6 months, have you been bothered by leaking of urine? Yes In general, how would you rate your overall mental or emotional health? Good PHQ-2 Total Score: 1 Additional concerns today: No Do you feel safe in your environment? Yes Have you ever done Advance Care Planning? (For example, a Health Directive, POLST, or a discussion with a medical provider or your loved ones about your wishes): Yes, patient states has an Advance CarePlanning document and will bring a copy to the clinic. Fall risk Fallen 2 or more times in the past year?: No Any fall with injury in the past year?: No Do you have sleep apnea, excessive snoring or daytime drowsiness?: yes Reviewed and updated as needed this visit by clinical staff Tobacco Allergies Meds Reviewed and updated as needed this visit by Provider Social History Tobacco Use ??? Smoking status: Never Smoker ??? Smokeless tobacco: Never Used Substance Use Topics ??? Alcohol use: No Alcohol/week: 0.0 standard drinks Comment: not for about 35 years (as of 2014) If you drink alcohol do you typically have >3 drinks per day or >7 drinks per week? Not applicable Alcohol Use 06/04/2021 Prescreen: >3 drinks/day or >7 drinks/week? Not Applicable Prescreen: >3 drinks/day or >7 drinks/week? - Current providers sharing in care for this patient include: Patient Care Team: Thomas Singleton MD as PCP - General (Internal Medicine) Adonis Grullon PA-C as Assigned Neuroscience Provider Ruddy Giron DPM as Assigned Musculoskeletal Provider Thomas Singleton MD as Assigned PCP The following health maintenance items are reviewed in [facility] and correct as of today: Health Maintenance Due Topic Date Due ??? ANNUAL REVIEW OF HM ORDERS Never done ??? HEPATITIS C SCREENING Never done ??? ZOSTER IMMUNIZATION (1 of 2) Never done ??? AORTIC ANEURYSM SCREENING (SYSTEM ASSIGNED) Never done ??? COLORECTAL CANCER SCREENING 02/02/2020 ??? INFLUENZA VACCINE (1) 05/16/2021 Lab work is in process Review of Systems Constitutional, HEENT, cardiovascular, pulmonary, GI, , musculoskeletal, neuro, skin, endocrine and psych systems are negative, except as otherwise noted. OBJECTIVE: BP 130/81 (BP Location: Right arm, Cuff Size: Adult Large) Pulse 68 Temp 97.8 ??F (36.6 ??C) (Temporal) Resp 20 Ht 1.676 m (5' 6) Wt 107 kg (236 lb) SpO2 94% BMI 38.09 kg/m?? Estimated body mass index is 38.09 kg/m?? as calculated from the following: Height as of this encounter: 1.676 m (5' 6). Weight as of this encounter: 107 kg (236 lb). Physical Exam GENERAL: healthy, alert and no distress EYES: Eyes grossly normal to inspection, PERRL and conjunctivae and sclerae normal HENT: ear canals and TM's normal, nose and mouth without ulcers or lesions NECK: no adenopathy, no asymmetry, masses, or scars and thyroid normal to palpation RESP: lungs clear to auscultation - no rales, rhonchi or wheezes CV: regular rate and rhythm, normal S1 S2, no S3 or S4, no murmur, click or rub, no peripheral edemaand peripheral pulses strong ABDOMEN: soft, nontender, no hepatosplenomegaly, no masses and bowel sounds normal MS: no gross musculoskeletal defects noted, no edema SKIN: no suspicious lesions or rashes NEURO: Normal strength and tone, mentation intact and speech normal PSYCH: mentation appears normal, affect normal/bright Diagnostic Test Results: Labs reviewed in Epic ASSESSMENT / PLAN: ICD-10-CM 1. Encounter for preventative adult health care examination Z00.00 Comprehensive metabolic panel (BMP + Alb, Alk Phos, ALT, AST, Total. Bili, TP) CBC with platelets and differential TSH with free T4 reflex Lipid panel reflex to direct LDL Fasting PSA, screen Fecal colorectal cancer screen (FIT) Comprehensive metabolic panel (BMP + Alb, Alk Phos, ALT, AST, Total. Bili, TP) CBC with platelets and differential TSH with free T4 reflex Lipid panel reflex to direct LDL Fasting PSA, screen 2. Encounter for screening for malignant neoplasm of prostate Z12.5 PSA, screen PSA, screen 3. Chronic gout without tophus, unspecified cause, unspecified site [id number] Uric acid Uric acid Patient has been advised of split billing requirements and indicates understanding: Yes COUNSELING: Reviewed preventive health counseling, as reflected in patient instructions Estimated body mass index is 38.09 kg/m?? as calculated from the following: Height as of this encounter: 1.676 m (5' 6). Weight as of this encounter: 107 kg (236 lb). Patient working on diet and exercise. He reports that he has never smoked. He has never used smokeless tobacco. Appropriate preventive services were discussed with this patient, including applicable screening as appropriate for cardiovascular disease, diabetes, osteopenia/osteoporosis, and glaucoma. As appropriate for age/gender, discussed screening for colorectal cancer, prostate cancer, breast cancer, and cervical cancer. Checklist reviewing preventive services available has been given to the patient. Reviewed patients plan of care and provided an AVS. The Basic Care Plan (routine screening as documented in Health Maintenance) for Ruddy meets the Care Plan requirement. This Care Plan has been established and reviewed with the Patient. Counseling Resources: ATP IV Guidelines Pooled Cohorts Equation Calculator Breast Cancer Risk Calculator Breast Cancer: Medication to Reduce Risk FRAX Risk Assessment ICSI Preventive Guidelines Dietary Guidelines for Americans, 2009 USDA's MyPlate ASA Prophylaxis Lung CA Screening Thomas Giron MD [facility] Identified Health Risks: ?? The patient was provided with written information regarding signs of hearing loss. Information on urinary incontinence and treatment options given to patient. documented in this encounter Plan of Treatment Not on filedocumented as of this encounter Procedures Procedure Name Priority Date/Time Associated Diagnosis Comme nts CBC WITH PLATELETS AND Routine 06/05/2021 8:35 Encounter for R esults for this DIFFERENTIAL AM CDT preventative adult procedure are in health care the results examination section. CBC WITH PLATELETS & Routine 06/05/2021 8:35 Encounter for Res ults for this DIFFERENTIAL AM CDT preventative adult procedure are in health care the results examination section. URIC ACID Routine 06/05/2021 8:35 Chronic gout without Resu lts for this AM CDT tophus, unspecified procedur e are in cause, unspecified the resul ts site section. TSH WITH FREE T4 Routine 06/05/2021 8:35 Encounter for Results for this REFLEX AM CDT preventative adult procedure are in health care the results examination section. PROSTATE SPECIFIC Routine 06/05/2021 8:35 Encounter for Result s for this ANTIGEN SCREEN AM CDT preventative adult procedu re are in health care the results examination section. Encounter for screening for malignant neoplasm of prostate LIPID REFLEX TO DIRECT Routine 06/05/2021 8:35 Encounter for R esults for this LDL PANEL AM CDT preventative adult procedure are in health care the results examination section. COMPREHENSIVE Routine 06/05/2021 8:35 Encounter for Results fo r this METABOLIC PANEL AM CDT preventative adult proced ure are in health care the results examination [...] Organization Address City/State/ZIP Code Phon [place] [address] Lab [address] [facility] [address], Room 3[address]580 [place] [address], [address], Room 3580 CBC with platelets and differential (06/05/2021 8:35 AM CDT) P athologist Signature WBC Count 10.0 4.0 - 11.0 06/05/2021 [facility] 10e3/uL 8:38 AM CDT RBC Count 5.22 4.40 - 06/05/2021 [facility] 5.90 8:38 AM CDT 10e6/uL Hemoglobin 15.9 13.3 - 06/05/2021 [facility] 17.7 g/dL 8:38 AM CDT Hematocrit 47.8 40.0 - 06/05/2021 [facility] 53.0 % 8:38 AM CDT MCV 92 78 - 100 06/05/2021 [facility] fL 8:38 AM CDT MCH 30.5 26.5 - 06/05/2021 [facility] 33.0 pg 8:38 AM CDT MCHC 33.3 31.5 - 06/05/2021 [facility] 36.5 g/dL 8:38 AM CDT RDW 14.3 10.0 - 06/05/2021 [facility] 15.0 % 8:38 AM CDT Platelet Count 207 150 - 450 06/05/2021 [facility] 10e3/uL 8:38 AM CDT % Neutrophils 69 % 06/05/2021 [facility] 8:38 AM CDT % Lymphocytes 18 % 06/05/2021 [facility] 8:38 AM CDT % Monocytes 9 % 06/05/2021 [facility] 8:38 AM CDT % Eosinophils 4 % 06/05/2021 [facility] 8:38 AM CDT % Basophils 0 % 06/05/2021 [facility] 8:38 AM CDT Absolute 6.9 1.6 - 8.3 06/05/2021 [facility] Neutrophils 10e3/uL 8:38 AM CDT Absolute 1.8 0.8 - 5.3 06/05/2021 [facility] Lymphocytes 10e3/uL 8:38 AM CDT Absolute 0.9 0.0 - 1.3 06/05/2021 [facility] Monocytes 10e3/uL 8:38 AM CDT Absolute 0.4 0.0 - 0.7 06/05/2021 [facility] Eosinophils 10e3/uL 8:38 AM CDT Absolute 0.0 0.0 - 0.2 06/05/2021 [facility] Basophils 10e3/uL 8:38 AM CDT Specimen Anatomical Collection Method / Collection Time Recei samara Time (Source) Location / Volume Laterality Blood STRUCTURE OF RIGHT Venipuncture / 06/05/2021 8:35 09/2 09/2020 8:35 UPPER LIMB / Unknown AM CDT AM CDT Unknown Thomas Giron MD LAB - BLOOD ORDERABLES Performing Organization Address City/[facility] Phon [place] [address] Lab [address] [place] [address], [facility] [address], [address] Uric acid (06/05/2021 8:35 AM CDT) athologist Signature Uric Acid 5.3 3.5 - 7.2 06/05/2021 [facility] mg/dL 2:30 PM CDT Specimen Anatomical Collection Method / Collection Time Recei asmara Time (Source) Location / Volume Laterality Blood STRUCTURE OF RIGHT Venipuncture / 06/05/2021 8:35 /2 09/2020 8:35 UPPER LIMB / Unknown AM CDT AM CDT Unknown Thomas Giron MD LAB - BLOOD ORDERABLES Performing Organization Address City/[facility] Phon e Number [facility] [place], [place] [phone] [facility] [address] [place] [address] Lab (no room number, 1st floor of clinic) [facility] [place], [place] [phone] [facility] [phone] [address] Lab (no room number, 1st floor of clinic) PSA, screen (06/05/2021 8:35 AM CDT) P athologist Signature Prostate 0.58 0.00 - 06/05/2021 [facility] Specific 4.00 ug/L 2:32 PM CDT Antigen Screen Specimen Anatomical Collection Method / Collection Time Recei samara Time (Source) Location / Volume Laterality Blood STRUCTURE OF RIGHT Venipuncture / 06/05/2021 8:35 05/17 8:35 UPPER LIMB / Unknown AM CDT AM CDT Unknown Thomas Giron MD LAB - BLOOD ORDERABLES Performing Organization Address City/State/ZIP Code Phon e Number [facility] [place], [place] [phone] [facility] [address] [address] Lab (no room number, 1st floor of clinic) [facility] [place], [place] [phone] [facility] [phone] [address] Lab (no room number, 1st floor of clinic) (ABNORMAL) Lipid panel reflex to direct LDL Fasting (06/05/2021 8:35 AM CDT) [facility] gist Method Time Signature Cholesterol 180 <200 06/05/2021 [facility] mg/dL 2:32 PM CDT Triglycerides 98 <150 06/05/2021 [facility] mg/dL 2:32 PM CDT Direct Measure 55 >=40 06/05/2021 [facility] HDL mg/dL 2:32 PM CDT LDL Cholesterol 105 (H) <=100 06/05/2021 [facility] Calculated mg/dL 2:32 PM CDT Non HDL 125 <130 06/05/2021 [facility] Cholesterol mg/dL 2:32 PM CDT Patient Fasting > Yes 06/05/2021 [facility] RY 8hrs? 2:32 PM CDT Specimen Anatomical Collection Method / Collection Time Recei samara Time (Source) Location / Volume Laterality Blood STRUCTURE OF RIGHT Venipuncture / 06/05/2021 8:35 /09/2020 8:35 UPPER LIMB / Unknown AM CDT AM CDT Unknown Narrative [facility] - 06/05/2021 2:32 PM CDT Cholesterol Desirable: ??<200 mg/dL Triglycerides Normal: ??Less than 150 mg/dL Borderline High: ??150-199 mg/dL High: ??200-499 mg/dL Very High: ??Greater than or equal to 50 0 mg/dL Direct Measure HDL Female: ??Greater than or equal to 50 mg /dL Male: ??Greater than or equal to 40 mg/d L LDL Cholesterol Desirable: ??<100mg/dL Above Desirable: ??100-129 mg/dL Borderline High: ??130-159 mg/dL High: ??160-189 mg/dL Very High: ??>= 190 mg/dL Non HDL Cholesterol Desirable: ??130 mg/dL Above Desirable: ??130-159 mg/dL Borderline High: ??160-189 mg/dL High: ??190-219 mg/dL Very High: ??Greater than or equal to 22 0 mg/dL Thomas Giron MD LAB - BLOOD ORDERABLES Performing Organization Address [facility] Phon e Number [facility] [place], [place] [phone] [facility] [phone] [place] [address] Lab (no room number, 1st floor of clinic) [place], [place] [phone] [facility] [address] Lab (no room number, 1st floor of [facility]) TSH with free T4 reflex (06/05/2021 8:35 AM CDT) P athologist Signature TSH 3.37 0.40 - 4.00 06/05/2021 [facility] mU/L 2:37 PM CDT Specimen Anatomical Collection Method / Collection Time Recei samara Time (Source) Location / Volume Laterality Blood STRUCTURE OF RIGHT Venipuncture / 06/05/2021 8:35 05/17 8:35 UPPER LIMB / Unknown AM CDT AM CDT Unknown Thomas Giron MD LAB - BLOOD ORDERABLES Performing Organization Address [facility] Phon e Number [facility] [place], [place] [phone] [facility] [address] [address] Lab (no room number, 1st floor of clinic) [facility] [place], [place] [phone] [facility] [address] Lab (no room number, 1st floor of clinic) (ABNORMAL) Comprehensive metabolic panel (BMP + Alb, Alk Phos, ALT, AST, Total. Bili, TP) (06/05/2021 8:35 AM CDT) Analysis Performed At Patho logist Time Signature Sodium 141 133 - 144 06/05/2021 [facility] mmol/L 2:30 PM CDT Potassium 3.8 3.4 - 5.3 06/05/2021 [facility] mmol/L 2:30 PM CDT Chloride 103 94 - 109 06/05/2021 [facility] mmol/L 2:30 PM CDT Carbon Dioxide 34 (H) 20 - 32 06/05/2021 [facility] (CO2) mmol/L 2:30 PM CDT Anion Gap 4 3 - 14 06/05/2021 [facility] mmol/L 2:30 PM CDT Urea Nitrogen 17 7 - 30 06/05/2021 [facility] mg/dL 2:30 PM CDT Creatinine 1.14 0.66 - 06/05/2021 [facility] 1.25 mg/dL 2:30 PM CDT Calcium 8.7 8.5 - 10.1 06/05/2021 [facility] mg/dL 2:30 PM CDT Glucose 94 70 - 99 06/05/2021 [facility] mg/dL 2:30 PM CDT Alkaline 69 40 - 150 06/05/2021 [facility] Phosphatase U/L 2:30 PM CDT AST 22 0 - 45 U/L 06/05/2021 [facility] 2:30 PM CDT ALT 47 0 - 70 U/L 06/05/2021 [facility] 2:30 PM CDT Protein Total 7.0 6.8 - 8.8 06/05/2021 [facility] g/dL 2:30 PM CDT Albumin 3.6 3.4 - 5.0 06/05/2021 [facility] g/dL 2:30 PM CDT Bilirubin Total 0.6 0.2 - 1.3 06/05/2021 [facility] mg/dL 2:30 PM CDT GFR Estimate 63 >60 06/05/2021 [facility] mL/min/1.7 2:30 PM CDT 3m2 Comment: As of March 25, 2021, eGFR is ca lculated by the CKD-EPI creatinine equation, without race adjustment. eGFR can be inf luenced by muscle mass, exercise, and diet. The reported eGFR is an estimation only and is only applicable if the renal function is stable. Specimen Anatomical Collection Method / Collection Time Recei samara Time (Source) Location / Volume Laterality Blood STRUCTURE OF RIGHT Venipuncture / 06/05/2021 8:35 09/2 09/2020 8:35 UPPER LIMB / Unknown AM CDT AM CDT Unknown Thomas Giron MD LAB - BLOOD ORDERABLES Performing Organization Address City/State/ZIP Code Phon e Number [facility] - [place], [place] [phone] [facility] [address] Lab (no room number, 1st floor of clinic) [facility] [place], [place] [phone] [facility] [phone] [address] Lab (no room number, 1st floor of clinic) documented in this encounter Visit Diagnoses Diagnosis Encounter for preventative adult health care examination - Primary Encounter for screening for malignant ne oplasm of prostate Special screening for malignant neoplasm of prostate Chronic gout without tophus, unspecified cause, unspecified site Encounter for Medicare annual wellness e xam Routine general medical examination at a health care facility documented in this encounter Care Teams Field Account Manager Relationship Specialty Start Date End Date Thomas Singleton MD PCP - General Internal Medicine 01/10/21 07/08/[address] [place] [address] [phone] Adonis Grullon, Assigned Neuroscience 11/29/20 PA-C Provider [id number] [place] [facility] [address] [place] [address] Ruddy Giron, Assigned Musculoskeletal 01/28/21 DPM Provider [id number] [facility] [address] [place] [address] Thomas Singleton MD Assigned PCP 02/25/21 06/23/21 [address] [place] [address] [phone] documented as of this encounter
--- OUTSIDE RECORDS SUMMARY | 2022-06-20 14:10 | XMS_ITS | Encounter Summary ---
:1945 Author Organization [facility] Address [address] [place] [address] Care Team Providers Name Role Phone Juan José Michelle MD Primary Care Provider Juan José Michelle MD Unavailable Reason for Referral Consultation (Routine) - Closed Specialty Diagnoses / Procedures Referred By Contact Refer red To Contact Diagnoses Allergy, initial encounter Thomas Singleton MD [facility] [address] [place] [address] [facility] [place], [place] [address] [facility] [place] [address] [place] [phone] Fax: Referral ID Status Reason Start Date Expiration Date Visits Requ ested Visits Authorized [id number] Closed 11/13/2020 11/13/2021 1 1 ECTION OFFICER Reason for Visit Reason Comments Establish Care Encounter Details Date Type Department Care Team Description 11/13/2020 Office Visit [facility] Thomas Singleton Essential hypertension (Primary Dx); Clinic Raj Mcclure MD Allergy, initial encounter; [place] [address] Morbid obesity (H) [address] [address] [phone] Social History Tobacco Use Types Packs/Day Years [...] with No / Unsure 11/13/2020 9:41 AM COLLECTION OFFICER someone who was confirmed or suspected to have Coronavirus / COVID-19? documented as of this encounter Last Filed Vital Signs Vital Sign Reading Time Taken Comments Blood Pressure 116/66 11/13/2020 9:50 AM COLLECTION OFFICER Pulse 73 11/13/2020 9:50 AM COLLECTION OFFICER Temperature 36.7 ??C (98.1 ??F) 11/13/2020 9:50 AM COLLECTION OFFICER Respiratory Rate 15 11/13/2020 9:50 AM COLLECTION OFFICER Oxygen Saturation 96% 11/13/2020 9:50 AM COLLECTION OFFICER Inhaled Oxygen Concentration - - Weight 103.6 kg (228 lb 4.8 oz) 11/13/2020 9:50 AM COLLECTION OFFICER Height 167.6 cm (5' 6) 11/13/2020 9:50 AM COLLECTION OFFICER Body Mass Index 36.85 11/13/2020 9:50 AM COLLECTION OFFICER documented in this encounter Progress Notes Thomas Singleton MD - 11/13/2020 10:00 AM CST Assessment & Plan Essential hypertension Stable on therapy continue with current medical management. Recommend recheck labs in March as scheduled Allergy, initial encounter Nonspecific allergic response question food versus KASIA inhibitor as patient does take lisinopril. Patient would like testing as apparently does do a lot of foreign travel - ALLERGY/ASTHMA ADULT REFERRAL Morbid obesity (H) Encourage ongoing weight loss. BMI: Estimated body mass index is 36.85 kg/m?? as calculated from the following: Height as of this encounter: 1.676 m (5' 6). Weight as of this encounter: 103.6 kg (228 lb 4.8 oz). Weight management plan: Discussed healthy diet and exercise guidelines Work on weight loss Regular exercise Return in about 4 months (around 03/15/2021) for Physical Exam. Thomas Singleton MD [facility] [place] Fox is a 75 year old who presents for the following health issues HPI New Patient/Transfer of Care- previous care at [facility] Other concerns: 1. Patient would like to discuss getting allergy testing done, has noticed problems with swelling and blistering from possibly red dyes, sweet potatoes 2. Discuss which covid vaccine patient should get - discussed. Review of Systems CONSTITUTIONAL: NEGATIVE for fever, chills, change in weight EYES: NEGATIVE for vision changes or irritation RESP: NEGATIVE for significant cough or SOB CV: NEGATIVE for chest pain, palpitations GI: NEGATIVE for nausea, abdominal pain, heartburn, or change in bowel habits : NEGATIVE for frequency, dysuria, or hematuria MUSCULOSKELETAL: NEGATIVE for significant arthralgias or myalgia NEURO: NEGATIVE for weakness, dizziness or paresthesias HEME: NEGATIVE for bleeding problems PSYCHIATRIC: NEGATIVE for changes in mood or affect Objective BP 116/66 Pulse 73 Temp 98.1 ??F (36.7 ??C) (Temporal) Resp 15 Ht 1.676 m (5' 6) Wt 103.6kg (228 lb 4.8 oz) SpO2 96% BMI 36.85 kg/m?? Body mass index is 36.85 kg/m??. Physical Exam GENERAL: healthy, alert and no [...] S1 S2, no S3 or S4, no click or rub, no peripheral edema and peripheral pulses strong MS: no gross musculoskeletal defects noted NEURO: No focal changes PSYCH: mentation appears normal, affect normal/bright ECTION OFFICER documented in this encounter Plan of Treatment Scheduled Referrals Name Type Priority Associated Diagnoses Order S chedule ALLERGY/ASTHMA ADULT Referral Routine Allergy, initial Ord ered: 11/13/2020 REFERRAL encounter documented as of this encounter Visit Diagnoses Diagnosis Essential hypertension - Primary Unspecified essential hypertension Allergy, initial encounter Morbid obesity (H) Morbid obesity documented in this encounter Care Teams Senior Systems Engineer Relationship Specialty Start Date End Date Juan José Michelle MD PCP - General Internal Medicine 05/08/15 01/09/21 Juan José Michelle MD Assigned PCP 07/26/16 12/30/20 [address] [place] [phone] documented as of this encounter
--- OUTSIDE RECORDS SUMMARY | 2022-06-20 14:10 | XMS_ITS | Encounter Summary ---
:1945 Author Organization [place] Address [address] [facility] [place] [address] Care Team Providers Name Role Phone Juan José Michelle MD Primary Care Provider Adonis Grullon PA-C Unavailable Adonis Grullon PA-C Unavailable Thomas Singleton MD Unavailable Thomas Singleton MD Primary Care Provider Reason for Visit Reason Comments Medication Refill Encounter Details Date Type Department Care Team Description 01/08/2021 Refill [facility] Juan José Michelle MD Medication Refill [place] [address] [facility] [address] [facility] [address] [facility], [address] [place] [address] [place] [address] [phone] Social History Tobacco Use Types Packs/Day Years [...] Miscellaneous Notes Telephone Encounter - Tran Pope - 01/09/2021 1:40 PM CDT Pt established care with Dr. Singleton at Telephone Encounter - Penny Flores RN - 01/08/2021 4:30 PM CDT Medication is being filled for 1 time refill only due to: Patient needs labs and appointment. 11/13/2020 Thomas Singleton MD Office Visit Return in about 4 months (around 03/15/2021) for Physical Exam. Penny Flores RN documented in this encounter Plan of Treatment Not on filedocumented as of this encounter Visit Diagnoses Diagnosis Benign essential hypertension Essential hypertension, benign documented in this encounter Care Teams Marketing Intelligence Analyst Relationship Specialty Start Date End Date Juan José Michelle MD PCP - General Internal Medicine 05/08/15 01/09/21 Thomas Singleton MD PCP - General Internal Medicine 01/10/21 07/08/21 [address] [place] [address] [phone] Adonis Grullon, Assigned Neuroscience 11/29/20 PA-C Provider [address] [place], [place] [phone] Adonis Grullon, Assigned Sleep Provider 11/29/20 02/24/21 PA-C [address] [place], [place] [id number] Thomas Singleton MD Assigned PCP 12/31/20 02/07/21 [address] [place] [address] [phone] documented as of this encounter
--- OUTSIDE RECORDS SUMMARY | 2022-06-20 14:10 | XMS_ITS | Encounter Summary ---
:1945 Author Organization [place] Address [address] [facility] [place] [address] Care Team Providers Name Role Phone Adonis Grullon PA-C Unavailable Thomas Singleton MD Primary Care Provider Ruddy Giron DPM Unavailable Thomas Singleton MD Unavailable Reason for Referral Consultation (Urgent) - Closed Specialty Diagnoses / Procedures Referred By Contact Refer red To Contact Dermatology Diagnoses Skin lesion Thomas Giron MD DERMATOLOGY, ID REF'L [id number] [place] [address] [address] [place] [address] Phone: Referral ID Status Reason Start Date Expiration Date Visits Requ ested Visits Authorized [id number] Closed 03/06/2021 03/06/2022 1 1 Reason for Visit Reason Comments Derm Problem patient report wound on left arm that has not healed for 3-4 - states that received a vaccination on the same arm (unsure which) through travel clinic as they travel overseas (per immunization record - flu shot was given in 2017) Encounter Details Date Type Department Care Team Description 03/06/2021 Office Visit [facility] Thomas Giron, Skin l esion (Primary Clinic [place] WISDOM Dx) [address] [facility], [address] [facility] [address] [place] [address] [place] [id number] Social History Tobacco Use Types Packs/Day Years [...] been in contact with No / Unsure 03/06/2021 2:41 PM CDT someone who was confirmed or suspected to have Coronavirus / COVID-19? documented as of this encounter Last Filed Vital Signs Vital Sign Reading Time Taken Comments Blood Pressure 110/75 03/06/2021 2:57 PM CDT Pulse 78 03/06/2021 2:57 PM CDT Temperature 36.2 ??C (97.1 ??F) 03/06/2021 2:57 PM CDT Respiratory Rate - - Oxygen Saturation 94% 03/06/2021 2:57 PM CDT Inhaled Oxygen Concentration - - Weight 104.7 kg (230 lb 14.4 oz) 03/06/2021 2:57 PM CDT Height - - Body Mass Index 37.27 01/25/2021 3:58 PM CDT documented in this encounter Progress Notes Thomas Giron MD - 03/06/2021 3:00 PM CDT Assessment & Plan Skin lesion Left arm significant duration concerns for granuloma versus squamous cell carcinoma. - ADULT DERMATOLOGY REFERRAL; Future See Patient Instructions No follow-ups on file. Thomas Giron MD [facility] [place] oFx is a 75 year old who presents for the following health issues HPI 75-year-old male who has had a lesion on his left arm since obtaining his Covid vaccination. Thelesion is not going away is very erythematous. No pain no fever noted. Chief Complaint Patient presents with ??? Derm Problem patient report wound on left arm that has not healed for 3-4 - states that received a vaccination on the same arm (unsure which) through travel clinic as they travel overseas (per immunization record - flu shot was given in 2017) New Patient/Transfer of Care Review of Systems Constitutional, HEENT, cardiovascular, pulmonary, gi and gu systems are negative, except as otherwise noted. Objective BP 110/75 (BP Location: Right arm, Patient Position: Sitting, Cuff Size: Adult Large) Pulse 78 Temp 97.1 ??F (36.2 ??C) (Temporal) Wt 104.7 kg (230 lb 14.4 oz) SpO2 94% BMI 37.27 kg/m?? Body mass index is 37.27 kg/m??. Physical Exam GENERAL: healthy, alert and no distress MS: no gross musculoskeletal defects noted, no edema SKIN: no suspicious lesions or rashes NEURO: Normal strength and tone, mentation intact and speech normal PSYCH: mentation appears normal, affect normal/bright Transferred Records on 11/21/2020 Component Date Value Ref Range Status ??? TSH 11/21/2020 2.200 0.450 - 4.500 uIU/mL Final documented in this encounter Plan of Treatment Scheduled Referrals Name Type Priority Associated Diagnoses Order S [facility] ADULT DERMATOLOGY Referral Routine Skin lesion Expected: 03/06/2021 REFERRAL (Approximate), Expires: 2021 documented as of this encounter Visit Diagnoses Diagnosis Skin lesion - Primary Unspecified disorder of skin and subcuta neous tissue documented in this encounter Care Teams Spinal Surgeon Relationship Specialty Start Date End Date Thomas Singleton MD PCP - General Internal Medicine 01/10/21 07/08/21 [address] [place] [address] Adonis Grullon, Assigned Neuroscience 11/29/20 PA-C Provider [address] [address] Ruddy Giron, Assigned Musculoskeletal 01/28/21 DPM Provider [address] [facility] [address] [place] [address] Thomas Singleton MD Assigned PCP 02/25/21 06/23/21 [address] [place] [phone] documented as of this encounter
--- OUTSIDE RECORDS SUMMARY | 2022-06-20 14:10 | XMS_ITS | Encounter Summary ---
:1945 Author Organization [place] Address [address] [facility] [place] [address] Care Team Providers Name Role Phone Juan José Michelle MD Primary Care Provider Juan José Michelle MD Unavailable Adonis Grullon PA-C Unavailable Adonis Grullon PA-C Unavailable Thomas Singleton MD Unavailable Thomas Singleton MD Primary Care Provider Ruddy Giron DPM Unavailable Juan José Michelle MD Unavailable Thomas Singleton MD Unavailable Thomas Giron MD Primary Care Provider Thomas Giron MD Unavailable Reason for Visit Reason Comments Medication Refill Encounter Details Date Type Department Care Team Description 05/21/2020 Refill [facility] Juan José Michelle MD Medication Refill [place] [address] [facility] [address] [facility], [address] [place] [address] [place] [address] [phone] Social History Tobacco Use Types Packs/Day Years [...] facility documented in this encounter Care Teams Outboard Technician Relationship Specialty Start Date End Date Juan José Michelle MD PCP - General Internal Medicine 05/08/15 01/09/21 Thomas Singleton MD PCP - General Internal Medicine 01/10/21 07/08/21 [address] [place] [phone] Thomas Giron MD PCP - General Internal Medicine 07/09/21 [address] [place] [address] Juan José Michelle MD Assigned PCP 07/26/16 12/30/[address] [place] [address] Adonis Grullon, Assigned Neuroscience 11/29/20 PA-C Provider [address] [place] [address] Adonis Grullon, Assigned Sleep Provider 11/29/20 02/24/21 PA-C [address] [place] [address] Thomas Singleton MD Assigned PCP 12/31/20 02/07/21 [address] [place] [phone] Ruddy Giron, Assigned Musculoskeletal 01/28/21 DPM Provider [address] [facility] [address] [place], [place] [address] Juan José Michelle MD Assigned PCP 02/08/21 02/24/[address] [place] [phone] Thomas Singleton MD Assigned PCP 02/25/21 06/23/21 [address] [place] [address], [place] [phone] Thomas Giron MD Assigned PCP 06/24/[address] [place], [place] [address] documented as of this encounter
--- OUTSIDE RECORDS SUMMARY | 2022-06-20 14:10 | XMS_ITS | Encounter Summary ---
:1945 Author Organization [place] Address [address] [facility] [place] [address] Care Team Providers Name Role Phone Mitchel Adonis Herbert PA-C Unavailable Thomas Singleton MD Primary Care Provider Ruddy Giron DPM Unavailable Thomas Singleton MD Unavailable Reason for Visit Reason Comments Medication Refill Encounter Details Date Type Department Care Team Description 04/04/2021 Refill [facility] Juan José Michelle MD Medication Refill [place] [address] [facility] [address] [facility] [address] [facility], [address] [place] [address] [place] [address] [phone] Social History Tobacco Use Types Packs/Day Years [...] this encounter Miscellaneous Notes Telephone Encounter - Enoc Ivan RN - 04/06/2021 9:30 AM CDT Prescription approved per [facility] Refill Protocol. documented in this encounter Plan of Treatment Not on filedocumented as of this encounter Visit Diagnoses Diagnosis Routine general medical examination at a health care facility documented in this encounter Care Teams Retail Interior Designer Relationship Specialty Start Date End Date Thomas Singleton MD PCP - General Internal Medicine 01/10/21 07/08/21 [address] [place] [address] [phone] Adonis Grullon, Assigned Neuroscience 11/29/20 PA-C Provider [address] [facility] [address] [place] [address] Ruddy Giron, Assigned Musculoskeletal 01/28/21 DPM Provider [address] [facility] [address] [place] [address] Thomsa Singleton MD Assigned PCP 02/25/21 06/23/21 [address] [place] [phone] documented as of this encounter
--- OUTSIDE RECORDS SUMMARY | 2022-06-20 14:10 | XMS_ITS | Encounter Summary ---
:1945 Author Organization [facility] Address [address] [place] [address] Care Team Providers Name Role Phone Adonis Grullon PA-C Unavailable Adonis Grullon PA-C Unavailable Thomas Singleton MD Unavailable Thomas Singleton MD Primary Care Provider Reason for Visit Reason Comments Bunion Bunion Encounter Details Date Type Department Care Team Description 01/25/2021 Office Visit [facility] Ruddy Giron, Pes planus of both feet (Primary Dx); [facility] [place] [facility] Valgus deformity of both great toes Podiatry [address] [place] [address] [phone] (Wo rk) Social History Tobacco Use Types Packs/Day Years Used Date Never Smoker Cigars Smokeless Tobacco: Never Used Tobacco Cessation: Counseling [...] Sign Reading Time Taken Comments Blood Pressure 122/72 01/25/2021 3:58 PM CDT Pulse - - Temperature - - Respiratory Rate - - Oxygen Saturation - - Inhaled Oxygen Concentration - - Weight 103 kg (227 lb) 01/25/2021 3:58 PM CDT Height 167.6 cm (5' 6) 01/25/2021 3:58 PM CDT Body Mass Index 36.64 01/25/2021 3:58 PM CDT documented in this encounter Patient Instructions Patient InstructionsCeci Mayela M, [employer] CAN LABORER - 01/25/2021 3:30 PM CDT Thank you for choosing [facility]! [facility] LOCATIONS [facility] SURGERY: [phone] [place] [address] APPOINTMENTS: [phone] [place] [address] BILLING QUESTIONS: [phone] FX [phone] RADIOLOGY: [phone] [place] [address] [place], [place] [id number] FX [phone] Follow up: 1 year or sooner if issues Next steps: external custom orthotic ROUTINE FOOT CARE (NAIL TRIMMING / CALLUSES) Go to [email or web address] ([employer]) and search for providers near you. Otherwise, this is a list we have gathered of recommended locations/providers in [place]. [facility] [phone] [facility] [phone] [email or web address] [phone] [place] + 15 mile radius [facility] [phone] jacquie. Diana Queen, DPM [address] [place] [address] Asim Harris DPM [address], [place] [address] [facility] [phone] [address] [place] [address] [facility] [address] Venkata Canela [phone] [place], [place] [facility] [phone] [place] [facility] [place] FYI: *Some providers accept insurance while others are out of pocket. Please contact them for details* documented in this encounter [facility] Ruddy Giron DPM - 01/25/2021 3:30 PM CDT ASSESSMENT: Encounter Diagnoses Name Primary? Pes planus of both feet Yes ??? Valgus deformity of both great toes MEDICAL DECISION MAKING: Given the degree of flatness that he has, I think he is doing fairly well in life. I am happy to provide an external referral for new multidensity orthotic devices as well as extra-depth shoes. His shoes appear to have also been modified to provide more medial support. I agree with the use of a wheeled walker for activity. His asked about offloading braces. These do exist, bilateral might be difficult. They inquired about his toenails. He has deformity and changes consistent with onychomycosis. I do not recommend oral antifungal therapy. We discussed topical treatment which will likely not make much difference. He is encouraged to file his nails down. His assists with this. Information on alternatives for nail care was provided Disclaimer: This note consists of symbols derived from keyboarding, dictation and/or voice recognition software. As a result, there may be errors in the script that have gone undetected. Please consider this when interpreting information found in this chart. Ruddy Giron DPM, FACFAS, MS [facility] Department of [facility] & [facility]le Surgery HPI: Ruddy Gottlieb is a 76-year-old male who presents to clinic today accompanied by his . He presents for evaluation regarding his flat feet and bunions. He has bilateral foot pain, noticed when walking. It is worse with prolonged weightbearing. He acknowledges that his body weight likely contributes. Inquires about new custom orthotics and extra-depth shoes. He has these made at an outside facility.He has started to walk with a walker. This is allowing him to be more active and take stress off hisfeet. He has no bunion related pain. * Past Medical History: Diagnosis Date ??? Arthritis ??? HTN (hypertension) ??? Sleep apnea * * Past Surgical History: Procedure Laterality Date ??? ARTHROTOMY SHOULDER, ROTATOR CUFF REPAIR, COMBINED Left 12/09/2018 Procedure: Open left shoulder rotator cuff repair with repair of supraspinatus, infraspinatus and teres minor. Distal clavicle excision and acromioplasty; Surgeon: Ammy Gallardo MD; Location: [facility] OR ??? COLON SURGERY ??? RESECT CLAVICLE DISTAL Left 12/09/2018 Procedure: left shoulder distal clavicle excision; Surgeon: Ammy Gallardo MD; Location: [facility] OR * * Current Outpatient Medications Medication Sig Dispense Refill ??? allopurinol (ZYLOPRIM) 300 MG tablet Take 1 tablet (300 mg) by mouth daily 90 tablet 2 ??? dorzolamide-timolol (COSOPT) 2-0.5 % ophthalmic solution INSTILL 1 DROP INTO BOTH EYES TWICE DAILY 2 ??? finasteride (PROSCAR) 5 MG tablet TAKE 1 TABLET BY MOUTH EVERY DAY 90 tablet 1 ??? lisinopril-hydrochlorothiazide (ZESTORETIC) 20-25 MG tablet TAKE 1 TABLET BY MOUTH EVERY DAY 90 tablet 1 ??? order for DME Equipment being ordered: CPAP Patient Ruddy Calhoun was set up at [facility] on May 25, 2015. Patient received a Resmed Airsense 10 Auto. Pressures were set at Auto 5 - 15 cm H2O. Patient???s ramp is 0 cm H2O for Off and FLEX/EPR is A Flex 2. Patient received a [employer] Mask name: Simplus Full Face mask Size Medium, heated tubing and heated humidifier. Patient is enrolled in the [employer] Program and does need to meet compliance. Patient has a follow up on TBD with LOIS Antonio. AKBAR CABRERA ??? triamterene-HCTZ (DYAZIDE) 37.5-25 MG capsule 5-2 PER INSUR. TAKE 1 CAPSULE BY MOUTH EVERY DAY 90 capsule 3 EXAM: Vitals: BP 122/72 (BP Location: Right arm, Patient Position: Chair, Cuff Size: Adult Regular) Ht 1.676 m (5' 6) Wt 103 kg (227 lb) BMI 36.64 kg/m?? BMI: Body mass index is 36.64 kg/m??. Constitutional: Ruddy Calhoun is in no apparent distress, appears well- nourished. Cooperative with history and physical exam. Vascular: Pedal pulses are palpable for both the DP and PT arteries. CFT < 3 sec. No edema. Neuro: Light touch sensation is intact to the L4, L5, S1 distributions No evidence of weakness, spasticity, or contracture in the lower extremities. Derm: Normal texture and turgor. No erythema, ecchymosis, or cyanosis. No open lesions. Musculoskeletal: Lower extremity muscle strength is normal. No gross deformities. Severe flatfoot deformity with complete collapse of the medial longitudinal arch with weightbearing. Bilateral hallux abductovalgus, left more involved than right. Deformities are not reducible. Lesser digits are also lat erally deviated. Despite the flatness of his foot, his heel can be positioned in better alignment with the leg, foot dorsiflexed ankle neutral, and first ray plantarflexed. Maintains good flexibility. documented in this encounter Plan of Treatment Not on filedocumented as of this encounter Visit Diagnoses Diagnosis Pes planus of both feet - Primary Valgus deformity of both great toes documented in this encounter Care Teams Maxillofacial Surgeon Relationship Specialty Start Date End Date Thomas Singleton MD PCP - General Internal Medicine 01/10/21 07/08/21 [address] [place] [phone] Adonis Grullon, Assigned Neuroscience 11/29/20 [facility] Provider [address] [place] [phone] Adonis Grullon, Assigned Sleep Provider 11/29/20 02/24/21 [facility] [address] [place] [id number] Thomas Singleton MD Assigned PCP 12/31/20 02/07/[address] [place] [phone] documented as of this encounter
--- OUTSIDE RECORDS SUMMARY | 2022-06-20 14:10 | XMS_ITS | Encounter Summary ---
:1945 Author Organization [place] Address [address] [facility] [place] [address] Care Team Providers Name Role Phone Adonis Grullon PA-C Unavailable Thomas Singleton MD Primary Care Provider Ruddy Giron DPM Unavailable Thomas Singleton MD Unavailable Encounter Details Date Type Department Care Team Description 06/04/2021 Virtual Visit [facility] Adonis Grullon DIANNE (ob structive sleep apnea) (Primary Dx); [facility] Insomnia, unspecified type [address] [address] [phone] Social History Tobacco Use Types Packs/Day Years [...] on file documented as of this encounter Patient Instructions Patient InstructionsAdonis Grullon PA-C - 06/04/2021 3:00 PM CDT Images from the original note were not included. Hypoglossal Nerve Stimulation: Hypoglossal nerve stimulation has recently received approval from the [place] Food and Drug Administration for the treatment of obstructive sleep apnea. This is based on research showing that thesystem was safe and effective in treating sleep apnea6. Results showed that the median AHI score decreased 68%, from 29.3 to 9.0. This therapy uses an implant system that senses breathing patterns and delivers mild stimulation to airway muscles, which keeps the airway open during sleep. The system consists of three fully implanted components: a small generator (similar in size to a pacemaker), a breathing sensor, and a stimulation lead. Using a small handheld remote, a patient turns the therapy on before bed and off upon awakening. Candidates for this device must be greater than 22 years of age, have moderate to severe DIANNE (AHI between 20-65), BMI less than 32, have tried CPAP/oral appliance without success, and have appropriate upper airway anatomy (determined by a sleep endoscopy performed by Dr. Del Rio). Hypoglossal Nerve Stimulation Pathway: The sleep surgeon???s office will work with the patient through the insurance prior-authorization process (including communications and appeals). Nasal Procedures: Nasal obstruction can interfere with nasal breathing during the day and night. Studies have shown that relief of nasal obstruction can improve the ability of some patients to tolerate positive airway pressure therapy for obstructive sleep apnea1. Treatment options include medications such as nasal saline, topical corticosteroid and antihistamine sprays, and oral medications such as antihistamines or decongestants. Non-surgical treatments can include external nasal dilators for selected patients. If these are not successful by themselves, surgery can improve the nasal airway either alone or in combination with these other options. Combination Procedures: Combination of surgical procedures and other treatments may be recommended, particularly if patientshave more than one area of narrowing or persistent positional disease. The success rate of combination surgery ranges from 66-80%2,3. References 1. Edin Hendrix. The Role of the Nose in Snoring and Obstructive Sleep Apnoea: An Update. Eur Arch Otorhinolaryngol. 2011; 268: 1365-73. 2. Nati FARRELL; Ingrid CALLOWAY; Benjie JR; Francesca JF; Armani MB; Sarai SG; Chong MEDRANO. Surgical modifications of the upper airway for obstructive sleep apnea in adults: a systematic review and meta-analysis. SLEEP 2010;33(10):2347-4589. Riley Hernandez. Hypopharyngeal surgery in obstructive sleep apnea: an evidence-based medicine review. Arch Otolaryngol Head Neck Surg. 2005;132(2):206-13. 3. Louis YH1, Daniela Y, Brayan PATRICIA. The efficacy of anatomically based multilevel surgery for obstructive sleep apnea. Otolaryngol Head Neck Surg. 2002;129(4):327-35. 4. Riley Hernandez, Bibi Muñoz. Hypopharyngeal Surgery in Obstructive Sleep Apnea: An Evidence-Based Medicine Review. Arch Otolaryngol Head Neck Surg. 2005;132(2):206-13. 5. Vitaly GENTILE et al. Upper-Airway Stimulation for Obstructive Sleep Apnea. N Engl J Med. 2014 Sep 23;370(2):139-49. 6. Marcio Y et al. Increased Incidence of Cardiovascular Disease in Middle-aged Men with Obstructive Sleep Apnea. Am J Respir Crit Care Med; 2002 166: 159-165 7. Cata EM et al. Studying Life Effects and Effectiveness of Palatopharyngoplasty (SLEEP) study: Subjective Outcomes of Isolated Uvulopalatopharyngoplasty. Otolaryngol Head Neck Surg. 2011; 144: 623-631. Drive Safe... Drive Alive Sleep health profoundly affects your health, mood, and your safety. Thirty three percent of the population (one in three of us) is not getting enough sleep and many have a sleep disorder. Not getting enough sleep or having an untreated / undertreated sleep condition may make us sleepy without even knowing it. In fact, our driving could be dramatically impaired due to our sleep health. As your provider, here are some things I would like you to know about driving: Here are some warning signs for impairment and dangerous drowsy driving: -Having been awake more than 16 hours -Looking tired -Eyelid drooping -Head nodding (it could be too late at this point) -Driving for more than 30 minutes Some things you could do to make the driving safer if you are experiencing some drowsiness: -Stop driving and rest -Call for transportation -Make sure your sleep disorder is adequately treated Some things that have been shown NOT to work when experiencing drowsiness while driving: -Turning on the radio -Opening windows -Eating any ???distracting?? / ???entertaining?? foods (e.g., sunflower seeds, candy, or any other) -Talking on the phone Your decision may not only impact your life, but also the life of others. Please, remember to drive safe for yourself and all of us. General recommendations for sleep problems (Insomnia) Allow 2-4 weeks to see results Establish a regular sleep schedule Most people only need 7-8 hours of sleep. Don't be in bed longer than you need to sleep or you will end up spending more time awake in bed. This trains your brain to think of the bed as a place to not sleep. Go to bed at same time each night Get up at same time each day - Set an alarm everyday (even weekends). This is one of the most important tips. It prevents you from relying on your insomnia to get you up on time for your day. That actually reinforces insomnia. It also will help your body get into a pattern where you start feeling tired at a consistent time each night. The body functions best when you keep a consistent routine. Avoid sleeping-in and napping. Anytime you sleep during the day, you will be less tired at night. You may be tired enough to fall asleep, but you will wake more in the middle of the night because you will have met your sleep need before the night is done. Cut down time in bed (if not asleep, get up)- Use your bed only for sleep and sex Anytime you spend time in bed doing activities other than sleep (reading, watching TV, working, playing on the computer or phone, or even just laying in bed trying to sleep), you are training your brain to think of the bed as a place to do activities other than sleep. If you are not falling asleep within 20-30 minutes, get out of bed. While out of bed, avoid bright lights. Avoid work or chores. Being productive in the middle of the night reinforces waking up at night. Find relaxing, not particularly entertaining activities like reading, listening to music, or relaxation exercises. Go back to bed if you start feeling groggy, or after about 30 minutes, even if not feeling very tired. Sometimes, just getting out of bed stops the pattern of getting frustrated about laying in bed not sleeping, and that can help you fall asleep. Avoid trying to force yourself to sleep- sleep is not like everything else. The harder you work at most things, the more you can accomplish. The harder you work at sleep, the less you will sleep. Make the bedroom comfortable - quiet, dark and cool are better. Consider ear plugs (silicon). Use dark blinds or wear an eye mask if needed Make a relaxing routine prior to bedtime Relaxation exercises: Progressive muscle relaxation: Relax each muscle group individually Begin with your feet, flex, then relax. Try to imagine your feet feeling heavy and sinking into thebed. Move to your calves, do the same thing. Work through each muscle group toward your head. Relaxing Mental Imagery: Try to imagine a trip that you took and found relaxing, or imagine a day at the beach. Try to walk yourself through the day in your mind as if you were dreaming it. Try to imagine sensing the different experiences, such as feeling sand between your toes, the heat of the sun on your skin, seeing the waves crashing the shore, the smell of the salt water, etc. Deal with your worries before bedtime Set aside a worry time around dinner time for 10-15 minutes. Write down the things that are on your mind. Plan time in the coming days to address those issues. Brainstorm ideas on how you will deal with them. Try to identify issues that are out of your control, and try to let those issues go. Listen to relaxation tapes Classical Music or Nature sounds Back Massage Get regular exercise each day (at least 1-2 hours before bedtime) Take medications only as directed Eat a light bedtime snack or warm drink Warm milk Warm herbal tea (non-caffeinated) Things to avoid No overstimulating activities just before bed No competitive games before bedtime No exciting television programs before bedtime Avoid caffeine after lunchtime Avoid chocolate Do not use alcohol to induce sleep (worsens Insomnia) Do not take someone else's sleeping pills Do not look at the clock when awakening Do not turn on light when getting up to use bathroom, use a nightlight Online Programs ??? www.SHUTi.Ummitech (pronounced shut eye). There is a fee for this program. Enter the code ???[place]?? if you decide to enroll in this program. ??? www.sleepIOMobile Roadie (pronounced sleep ee oh). There is a fee for this program. Enter the code ???[place]?? if you decide to enroll in this program. Suggested Resources Insomnia Treatment Books ??? Overcoming Insomnia by Rudolph Nascimento and Michelle Laguerre (2008) ??? No More Sleepless Nights by Ranjit Mejía and Lisa Lehman (1995) ??? Say Alison to Insomnia by Iggy Deluca (2008) ??? The Insomnia Workbook by Valarie Garcia and Abdi Maloney (2009) ??? The Insomnia Answer by Terry Oliva and Hi Mcgregor (2006) Stress Management and Relaxation Books ??? The Relaxation and Stress Reduction Workbook by Marilou Watson, Tamra Grajeda and Reyes Johns (2007) ??? Stress Management Workbook: Techniques and Self-Assessment Procedures by Phoebe Maravilla and Mihir Lim (1996) ??? A Mindfulness-Based Stress Reduction Workbook by Jason [place] and Shavonne Lord (2009) ??? The Complete Stress Management Workbook by Bhaskar Sloan, Sid Tristan and Armin Walton (1995) ??? Assert Yourself by Alecia Rodríguez and Asim Rodríguez (1976) Relaxation Resources for Computer Download These websites offer resources to help you relax. This list is for information only. [place] is notresponsible for the quality of services or the actions of any person or organization. Progressive Muscle Relaxation (PMR): ??? http://www.Dogi.FrenchWeb/astgustelfk-dambtl-gairtorjcr-exercise.html ??? http://studentsupport.[facility]/counseling/resources/self-help/relaxat shz-nkk-vnngre-management/ Deep Breathing Exercises: ??? http://www.Dogi.FrenchWeb/breathing-awareness.html Meditation: ??? www.fragUpverter ??? www.bon-ypqxyl-gdnxpafiec-site.com You may have to pay for some of these resources. Guided Imagery: ??? http://www.Dogi.FrenchWeb/hktrng-akmfkxe-vzcndit.html ??? http://PlaySpan/Offerboard/ezfhonslso-cnomjr-lqmxank/ Consider phone apps such as: Calm, Headspace or Insight Timer. Counseling / Behavioral Health [facility] Visit www.[place].org or call [phone] to find a clinic close to you. Or call [phone] for [facility]. documented in this encounter Progress Notes Adonis Grullon PA-C - 06/04/2021 3:00 PM CDT Brayan is a 75 year old who is being evaluated via a billable video visit. How would you like to obtain your AVS? MyChart If the video visit is dropped, the invitation should be resent by: Text to cell phone: [phone] Will anyone else be joining your video visit? Video Start Time: 3:03 PM Video-Visit Details Type of service: Video Visit Video End Time:3:38 PM Originating Location (pt. Location): Home Distant Location (provider location): [facility] SLEEP [facility] Platform used for Video Visit: [facility] CPAP Follow-Up Visit: Date on this visit: 06/04/2021 Ruddy Ambrocio Lj has a follow-up visit today to review his CPAP use for DIANNE. His??medical history is significant for HTN, gout, obesity, hyperlipidemia.? His main symptoms were??loud snoring and observed apneas. ?? Diagnostic home study showed (05/11/2015): Wt was 234#. AHI: 56.2/hr TRE: 47.2/hr Supine AHI: 49.7/hr Lateral AHI: 52.9/hr on left and 59/hr on right?? Average SpO2: 88% Lowest Desaturation: 64%. Time Spent Below 89%: 198.3 minutes. He had a CPAP titration study on 08/29/2015. CPAP was titrated to 11 cm, but REM was not obtained supine He and his plan to do one more trip around the world. They go to places with no electricity. Heasks about Inspire. He has no concerns about the CPAP. PAP machine: ResMed (05/25/2015). Pressure settings: 11-15 cm The compliance data shows that the patient used the CPAP for 30/30 nights, 100% of nights for >4 hours. The 95th% pressure is 12.4 cm. The 95th% leak is 26.4 lpm. The average nightly usage is 472 min. The average AHI is 1.3/hr. Interface: Mask: Simplus full face mask Chin strap: No Leak: Yes-a little, needs to replace his mask. Using Humidifier: Yes, infrequently runs out Condensation in hose or mask: Yes/No Difficulties with therapy: [-] Snoring with CPAP: [-] Difficulty tolerating the pressure: [-] Epistaxis/dry nose: [-] Nasal congestion: [+] Dry mouth: [-] Mouth breathing: [-] Pain/skin breakdown: Improvements noted with CPAP: [+] waking up more refreshed [+] sleeping better with less arousals [+] improved energy level during the day Weight change since sleep study: 230 lbs. 236# in 2019 Bedtime: 10-11:30 PM. Wake time: 8 AM. Falls asleep in 5-10 minutes. Wakes 1-2 times per night for 2-3 hours. Reason for waking: restroom Naps: 3-4 times per week for 30 minutes. He has been napping since childhood. They continue to work. He thinks about work in the night and solves problems. Past medical/surgical history, family history, social history, medications and allergies were reviewed. Problem List: Patient Active Problem List Diagnosis Date Noted ??? Morbid obesity (H) 11/13/2020 Priority: Medium ??? Routine general medical examination at a health care facility 01/26/2019 Priority: Medium ??? Idiopathic chronic gout of [...] (primary encounter diagnosis) Comment: Brayan is doing well with CPAP, although his leak is a little high. He notes his mask is old and needs to be replaced. He is primarily concerned about options for treating his apnea when he travels to countries without electricity. He asks specifically about Inspire. Plan: Comprehensive DME Continue auto CPAP 11-15 cm. A prescription was written for new supplies. We reviewed recommendations for cleaning and replacing supplies. We talked about power supply options (solar chargers and battery packs). He is not a candidate for Inspire due to his weight (BMI >32) and good tolerance to CPAP. (G47.00) Insomnia, unspecified type Comment: Brayan has 2-3 hour awakenings in the night. This is likely a result of excessive sleep opportunity and rumination. He is in bed 8.5-9 hours per night and naps for 30 minutes on at least half ofdays as well. He problem solves at night. Plan: We reviewed concepts of circadian and homeostatic sleep drives. We also discussed stimulus control and sleep compression. He was advised to reduce time in bed to no more than 8 hours. He was advised to avoid sleeping in or napping. We discussed dealing with stress by setting aside a designated worry time in the early evening and he was given resources for guided imagery/relaxation. He will follow up with me in about 1 year(s). 40 minutes were spent on the date of the encounter doing chart review, history and exam, documentation and further activities as noted above. Adonis Grullon PA-C CC: No ref. provider found documented in this encounter Plan of Treatment Not on filedocumented as of this encounter Visit Diagnoses Diagnosis DIANNE (obstructive sleep apnea) - Primary Obstructive sleep apnea (adult) (pediatr ic) Insomnia, unspecified type documented in this encounter Care Teams Data Quality Consultant Relationship Specialty Start Date End Date Thomas Singleton MD PCP - General Internal Medicine 01/10/21 07/08/[address] [place] [address] [phone] Adonis Grullon, Assigned Neuroscience 11/29/20 PA-C Provider [address] [phone] Ruddy Giron, Assigned Musculoskeletal 01/28/21 DPM Provider [id number] [facility] [address] [place], [place] [phone] Thomas Singleton MD Assigned PCP 02/25/21 06/23/[address] [place] [address] [phone] documented as of this encounter
--- OUTSIDE RECORDS SUMMARY | 2022-06-20 14:10 | XMS_ITS | Encounter Summary ---
:1945 Author Organization [place] Address [address] [facility] [place] [address] Care Team Providers Name Role Phone Adonis Grullon PA-C Unavailable Adonis Grullon PA-C Unavailable Thuy Zhao MD Unavailable Thuy Zhao MD Primary Care Provider Reason for Visit Reason Comments Medication Refill Encounter Details Date Type Department Care Team Description 01/16/2021 Refill [facility] Juan José Michelle MD Medication Refill [place] [address] [facility] [address] [facility] [address] [facility] [place] [address] [place] [address] [phone] Social History Tobacco Use Types Packs/Day Years [...] this encounter Miscellaneous Notes Telephone Encounter - Shakila Fay RN - 01/17/2021 3:40 PM CDT Letter sent. Shakila BEEBE, RN, PHN Telephone Encounter - Thuy Zhao MD - 01/16/2021 12:07 PM CDT I have filled prescription but suggested patient may benefit from following up in the clinic to recheck renal function I have placed orders for such. He is taking a combination of diuretics and we may want to consider adjusting his meds accordingly. Telephone Encounter - Shakila Fay RN - 01/16/2021 11:51 AM CDT Routing refill request to provider for review/approval because: Patient newly established. Please advise if ok with taking over prescriptions previously written by Dr. Michelle. Shakila BEEBE, RN, PHN Addendum Note - Thuy Zhao MD - 01/16/2021 11:42 AM CDT Addended by: THUY ZHAO on: 01/16/2021 12:08 PM Modules accepted: Orders documented in this encounter Plan of Treatment Not on filedocumented as of this encounter Visit Diagnoses Diagnosis Benign essential hypertension Essential hypertension, benign documented in this encounter Care Teams Warehouse Administrative Assistant Relationship Specialty Start Date End Date Thuy Zhao MD PCP - General Internal Medicine 01/10/21 07/08/[address] [place] [phone] Adonis Grullon, Assigned Neuroscience 11/29/20 PA-C Provider [address] [address] Adonis Grullon, Assigned Sleep Provider 11/29/20 02/24/21 JC [address] [place] [phone] Thuy Zhao MD Assigned PCP 12/31/20 02/07/[address] [place] [phone] documented as of this encounter
--- OUTSIDE RECORDS SUMMARY | 2022-06-20 14:10 | XMS_ITS | Encounter Summary ---
:1945 Author Organization [place] Address [facility] [place] [address] Care Team Providers Name Role Phone RichaAdonis perez Keon GREENE Unavailable Thomas Singleton MD Primary Care Provider Ruddy GironM Unavailable Thomas Singleton MD Unavailable Encounter Details Date Type Department Care Team Description 03/06/2021 Travel Social History Tobacco Use Types Packs/Day [...] on filedocumented in this encounter Care Teams Enrollment Nurse Relationship Specialty Start Date End Date Thomas Singleton MD PCP - General Internal Medicine 01/10/21 07/08/21 [address] [place] [phone] Adonis Grullon, Assigned Neuroscience 11/29/20 PA-C Provider [address] [facility] [address] [place], [place] [phone] Ruddy Giron, Assigned Musculoskeletal 01/28/21 DPM Provider [id number] [facility] [address] [place] [address] Thomas Singleton MD Assigned PCP 02/25/21 06/23/21 [address] [place] [phone] documented as of this encounter
--- OUTSIDE RECORDS SUMMARY | 2022-06-20 14:10 | XMS_ITS | Encounter Summary ---
:1945 Author Organization [place] Address [address] [facility] [place] [place] [address] Care Team Providers Name Role Phone Juan José Michelle MD Primary Care Provider Juan José Michelle MD Unavailable Adonis Grullon PA-C Unavailable Adonis Grullon PA-C Unavailable Reason for Visit Reason Comments Medication Refill Encounter Details Date Type Department Care Team Description 12/22/2020 Refill [facility] Juan José Michelle MD Medication Refill [place] [address] [facility] [address] [facility] [place] [address] [place] [address] [phone] Social History Tobacco Use Types Packs/Day Years [...] facility documented in this encounter Care Teams Mental Health Counselor Relationship Specialty Start Date End Date Juan José Michelle MD PCP - General Internal Medicine 05/08/15 01/09/21 Juan José Michelle MD Assigned PCP 07/26/16 12/30/[address] [place] [phone] Adonis Grullon, Assigned Neuroscience 11/29/20 JC Provider [address] [place] [phone] Adonis Grullon, Assigned Sleep Provider 11/29/20 02/24/[address] [place] [phone] documented as of this encounter
--- OUTSIDE RECORDS SUMMARY | 2022-06-20 14:11 | XMS_ITS | Encounter Summary ---
:1945 Author Organization [place] Address [address] [place], [place] [address]. [place] [address] Care Team Providers Name Role Phone Juan José Michelle MD Primary Care Provider Juan José Michelle MD Unavailable Encounter Details Date Type Department Care Team Description 04/04/2020 Travel Social History Tobacco Use Types Packs/Day [...] on filedocumented in this encounter Care Teams Research Geologist Relationship Specialty Start Date End Date JuanJ osé Michelle MD PCP - General Internal Medicine 05/08/15 01/09/21 Juan José Michelle MD Assigned PCP 07/26/16 12/30/[address] [facility] [address] [place] [phone] documented as of this encounter
--- OUTSIDE RECORDS SUMMARY | 2022-06-20 14:11 | XMS_ITS | Encounter Summary ---
:1945 Author Organization [place] Address [facility] [place] [address] Care Team Providers Name Role Phone Juan José Michelle MD Primary Care Provider Juan José Michelle MD Unavailable Encounter Details Date Type Department Care Team Description 12/09/2018 Travel Social History Tobacco Use Types Packs/Day [...] on filedocumented in this encounter Care Teams Embosser Apprentice Relationship Specialty Start Date End Date Juan José Michelle MD PCP - General Internal Medicine 05/08/15 01/09/21 Juan José Michelle MD Assigned PCP 07/26/16 12/30/20 [address] [place] [phone] documented as of this encounter
--- OUTSIDE RECORDS SUMMARY | 2022-06-20 14:11 | XMS_ITS | Encounter Summary ---
:1945 Author Organization [facility] Address [address] 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 The patient has been notified of following (by Andrew Hernandes CMA on 11/30/2019 at 2:19 PM We have found that certain health care [...] the test done at a later time. This telephone visit will be conducted via 3 way call with the you (the patient) , the physician/provider, and a me all on the line at the same time. This allows your physician/provider to have the phone conversation with you while I will be taking notes for your medical record. We will have full access to your [facility] medical record during this entire phone call. Since this is like an office visit, will bill your insurance company for this service. Please check with your medical insurance if this type of telephone/virtual is covered . You may be responsible forthe cost of this service if insurance coverage is denied. The typical cost is $30 (10min), $59(11-20min) and $85 (21-30min) If during the course of the call the physician/provider feels a telephone visit is not appropriate, you will not be charged for this service Consent has been obtained for this service by care promotions team leader: yes. See the scanned image in the medical record. S: The history as provided by the patient to the provider during this 3 way call include Hypertension Morbid obesity Gout Patient reports that he has been managing relatively well in spite of his flat feet. He has been walking regularly, has lost a few pounds and his blood pressure is good in general. He has not had any problems with gout and his prostatism is in good control. Medications reviewed and he requests a refill of his Dyazide, other scripts are up-to-date. Pertinent parts of the the patient's medical history reviewed and confirmed by the provider. Total time of call between patient and provider was 15 minutes GLSirisha (MD signature) I have reviewed the note as documented above. This accurately captures the substance of my conversation with the patient, Assessment/Plan: 1. Essential hypertension 2. Class 2 obesity due to excess calories without serious comorbidity with body mass index (BMI) of 35.0 to 35.9 in adult Weight loss noted 3. Idiopathic chronic gout of multiple sites without tophus No recent episodes current therapy 4. DIANNE (obstructive sleep apnea) 5. Hyperlipidemia LDL goal <130 6. Benign essential hypertension Well-controlled by report - triamterene-HCTZ (DYAZIDE) 37.5-25 MG capsule; TAKE 1 CAPSULE BY MOUTH EVERY DAY Dispense: 90 capsule; Refill: 3 7. 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
--- OUTSIDE RECORDS SUMMARY | 2022-06-20 14:11 | XMS_ITS | Encounter Summary ---
:1945 Author Organization [facility] Address [address] 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; [address], [address] Hyperlipidemia LDL goal <130; [place] [id number] [place] DIANNE (obstructive sleep apnea ); [phone] Tear of left rotator cuff, unspecified t ear extent; [phone] Seborrheic neftali tosis, inflamed; (Work) Routine general medical examination at a health care facility Social History Tobacco Use Types Packs/Day Years [...] on file documented as of this encounter Last Filed Vital Signs Vital Sign Reading Time Taken Comments Blood Pressure 108/76 02/23/2019 3:14 PM CDT Pulse 93 02/23/2019 3:14 PM CDT Temperature 36.6 ??C (97.8 ??F) 02/23/2019 3:14 PM CDT Respiratory Rate - - Oxygen Saturation 95% 02/23/2019 3:14 PM CDT Inhaled Oxygen Concentration - - Weight 107.5 kg (237 lb) 02/23/2019 3:14 PM CDT Height 170.2 cm (5' 7) 02/23/2019 3:14 PM CDT Body Mass Index 37.12 02/23/2019 3:14 PM CDT documented in this encounter Progress Notes Juan José Michelle MD - 02/23/2019 3:00 PM CDT Subjective Ruddy Calhoun is a 73 year old male who presents to clinic today for the following health issues: HPI Medication Followup of Finasteride ?? Taking Medication as prescribed: YES ?? Side Effects: None ?? Medication Helping Symptoms: Unsure Patient will be taking 1/2 tablet of Finasteride for hair growth. Left Shoulder Patient reports that he got his sling off and is still attending physical therapy. He does not have full range of motion yet. His continues to help drive him places. He would like to have ROM backto play golf. Exercise Patient reports that he has not been following his walking plan that was discussed at the previous encounter. He sometimes walks around his building but his feet give him much difficulty. Patient Active Problem List Diagnosis ??? Essential hypertension ??? DIANNE (obstructive sleep apnea) ??? Sleep related hypoventilation/hypoxemia in other disease ??? Gout ??? Seborrheic keratosis, inflamed ??? Class 2 obesity due to excess calories without serious comorbidity with body mass index (BMI) of35.0 to 35.9 in adult ??? Vitamin D deficiency ??? Idiopathic chronic gout of multiple sites without tophus ? ? Hyperlipidemia LDL goal <130 ??? Encounter for routine adult health examination without abnormal findings ??? Obesity (BMI 35.0-39.9) with comorbidity (H) ??? Routine general medical examination at a health care facility Past Surgical History: Procedure Laterality Date ??? [...] Surgeon: Ammy Gallardo MD; Location: [facility] OR Social History Tobacco Use ??? Smoking status: Never Smoker ??? Smokeless tobacco: Never Used Substance Use Topics ??? Alcohol use: No Alcohol/week: 0.0 oz Comment: not for about 35 years (as of 2014) Family History Problem Relation Age of Onset ??? Cerebrovascular Disease Mother ??? Diabetes Sister Current Outpatient Medications Medication Sig Dispense Refill ??? allopurinol (ZYLOPRIM) 300 MG tablet TAKE 1 TABLET BY MOUTH EVERY DAY 90 tablet 1 ??? brimonidine-timolol (COMBIGAN) 0.2-0.5 % ophthalmic solution 1 drop ??? dorzolamide-timolol (COSOPT) 2-0.5 % ophthalmic solution INSTILL 1 DROP INTO BOTH EYES TWICE DAILY 2 ??? finasteride (PROSCAR) 5 MG tablet Take 1 tablet (5 mg) by mouth daily 90 tablet 3 ??? lisinopril-hydrochlorothiazide (PRINZIDE/ZESTORETIC) 20-25 MG per tablet TAKE 1 TABLET BY MOUTH DAILY 90 tablet 1 ??? order for DME Equipment being ordered: CPAP Patient Ruddy Calhoun was set up at [facility] on May 25, 2015. Patient received a Resmed Airsense 10 Auto. Pressures were set at Auto 5 - 15 cm H2O. Patient???s ramp is 0 cm H2O for Off and FLEX/EPR is A Flex 2. Patient received a [employer] Mask name: Simplus Full Face mask Size Medium, heated tubing and heated humidifier. Patient is enrolled in the [facility] Program and does need to meet compliance. Patient has a follow up on TBD with LOIS Antonio. AKBAR CABRERA ??? triamterene-HCTZ (DYAZIDE) 37.5-25 MG capsule TAKE 1 CAPSULE BY MOUTH EVERY DAY 90 capsule 0 BP Readings from Last 3 Encounters: 02/23/19 108/76 01/26/19 122/81 01/13/19 110/70 Wt Readings from Last 3 Encounters: 02/23/19 107.5 kg (237 lb) 01/26/19 109.8 kg (242 lb) 01/13/19 110.2 kg (243 lb) Reviewed and updated as needed this visit by Provider Review of Systems ROS COMP: CONSTITUTIONAL: NEGATIVE for fever, chills, change in weight INTEGUMENTARY/SKIN: NEGATIVE for worrisome rashes, moles or lesions EYES: NEGATIVE for vision changes or irritation ENT/MOUTH: NEGATIVE for ear, mouth and throat problems RESP: NEGATIVE for significant cough or SOB CV: NEGATIVE for chest pain, palpitations or peripheral edema GI: NEGATIVE for nausea, abdominal pain, heartburn, or change in bowel habits : NEGATIVE for frequency, dysuria, or hematuria MUSCULOSKELETAL: NEGATIVE for significant arthralgias or myalgia NEURO: NEGATIVE for weakness, dizziness or paresthesias ENDOCRINE: NEGATIVE for temperature intolerance, skin/hair changes PSYCHIATRIC: NEGATIVE for changes in mood or affect This document serves as a record of the services and decisions personally performed and made by MD Michelet. It was created on his behalf by Liza Fonseca, a trained medical staff services coordinator. The creation of this document is based on the provider's statements to the medical staff services coordinator. Liza Fonseca February 23, 2019 3:49 PM Objective BP 108/76 (BP Location: Right arm, Patient Position: Sitting, Cuff Size: Adult Large) Pulse 93 Temp 97.8 ??F (36.6 ??C) (Oral) Ht 1.702 m (5' 7) Wt 107.5 kg (237 lb) SpO2 95% BMI 37.12 kg/m?? Body mass index is 37.12 kg/m??. Physical Exam Neck was supple without adenopathy or thyromegaly his carotids were normal without bruits Chest clear to auscultation and percussion Cardiovascular S1 and S2 are physiologic without murmurs or gallops Abdomen bowel sounds were normal. There is no palpable mass or organomegaly Extremities nontender without any edema Pulses pedal pulses are as described otherwise his pulses are bilaterally symmetrical throughout without bruits Skin with an area of hyperkeratotic with an inflamed sebbhoriec keratosis Procedure: The left lateral arm keratosis at the level of his deltoid was treated with liquid nitrogen times 3. Diagnostic Test Results: Labs reviewed in [facility] No results found for this or any previous visit (from the past 24 hour(s)). Assessment & Plan Ruddy was seen today for recheck. Diagnoses and all orders for this visit: Morbid obesity (H) Reviewed with patient the importance of weight loss associated with regular exercise and dietary discretion. Essential hypertension Well-controlled with current therapy Idiopathic chronic gout of multiple sites without tophus Labs reviewed and his gout is controlled Hyperlipidemia LDL goal <130 Well-controlled with current therapy DIANNE (obstructive sleep apnea) Continue with CPAP Tear of left rotator cuff, unspecified tear extent Continue with physical therapy Seborrheic keratosis, inflamed Routine general medical examination at a health care facility - finasteride (PROSCAR) 5 MG tablet; Take 1 tablet (5 mg) by mouth daily BMI: Estimated body mass index is 37.12 kg/m?? as calculated from the following: Height as of this encounter: 1.702 m (5' 7). Weight as of this encounter: 107.5 kg (237 lb). Weight management plan: Discussed healthy diet and exercise guidelines MEDICATIONS: Orders Placed This Encounter Medications ??? finasteride (PROSCAR) 5 MG tablet Sig: Take 1 tablet (5 mg) by mouth daily Dispense: 90 tablet Refill: 3 - Continue other medications without change Discussed using a stationary bike for exercise. The information in this document, created by the medical staff services coordinator for me, accurately reflects the services I personally performed and the decisions made by me. I have reviewed and approved this document for accuracy prior to leaving the patient care area. 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) Hyperlipidemia LDL goal <130 Other and unspecified hyperlipidemia DIANNE (obstructive sleep apnea) Obstructive sleep apnea (adult) (pediatr ic) Tear of left rotator cuff, unspecified t ear extent Seborrheic keratosis, inflamed Inflamed seborrheic keratosis Routine general medical examination at a health care facility documented in this encounter Care Teams Manager Interface Relationship Specialty Start Date End Date Juan José Michelle MD PCP - General Internal Medicine 05/08/15 01/09/21 Juan José Michelle MD Assigned PCP 07/26/16 12/30/20 [address] [place] [id number] documented as of this encounter
--- OUTSIDE RECORDS SUMMARY | 2022-06-20 14:11 | XMS_ITS | Encounter Summary ---
:1945 Author Organization [facility] Address [address] [place] [address] Care Team Providers Name Role Phone Juan José Michelle MD Primary Care Provider Juan José Michelle MD Unavailable Reason for Visit Reason Comments Wellness Visit Encounter Details Date Type Department Care Team Description 03/29/2020 Office Visit [facility] Juan José Michelle, Routin e general medical examination at a health care facility (Primary Dx); Clinic [place] Screening for prostate cancer; [address] [place] Screening for hypothyroidism; [facility], [address] [place] (obstructive sleep apnea); [place] [id number] [place] Idiopathic chronic gout of m ultiple sites without tophus; [phone] Hyperlipidemia LDL goal <130; [phone] Vitamin D defic iency; (Work) Seborrheic keratosis, inflamed; [phone] Essential hyper tension; (Fax) Special screeni ng for malignant neoplasms, colon Social History Tobacco Use Types Packs/Day Years [...] Sign Reading Time Taken Comments Blood Pressure 90/62 03/29/2020 10:19 AM CDT Pulse 76 03/29/2020 10:19 AM CDT Temperature 36.3 ??C (97.4 ??F) 03/29/2020 10:19 AM CDT Respiratory Rate - - Oxygen Saturation 96% 03/29/2020 10:19 AM CDT Inhaled Oxygen Concentration - - Weight 101.7 kg (224 lb 1.6 oz) 03/29/2020 10:19 AM CDT Height 167.6 cm (5' 6) 03/29/2020 10:19 AM CDT Body Mass Index 36.17 03/29/2020 10:19 AM CDT documented in this encounter Progress Notes Juan José Michelle MD - 03/29/2020 10:00 AM CDT SUBJECTIVE: Ruddy Calhoun is a 74 year old male who presents for Preventive Visit. Weight loss of 12 pounds noted No change in activity because of his flat feet which cause excessive pain with activity especially walking. No opportunities in the pandemic for bike riding. Are you in the first 12 months of your Medicare coverage? No Healthy Habits: In general, how would you rate your overall health? Good Frequency of exercise: None Duration of exercise: Less than 15 minutes Do you usually eat at least 4 servings of fruit and vegetables a day, include whole grains & fiber and avoid regularly eating high fat or junk foods? Yes Taking medications regularly: Yes Barriers to taking medications: None Medication side effects: None Ability to successfully perform activities of daily living: No assistance needed Home Safety: No safety concerns identified Hearing Impairment: No hearing concerns In the past 6 months, have you been bothered by leaking of urine? No In general, how would you rate your overall mental or emotional health? Excellent PHQ-2 Total Score: Additional concerns today: No Do you feel safe in your environment? Yes Have you ever done Advance Care Planning? (For example, a Health Directive, POLST, or a discussion with a medical provider or your loved ones about your wishes): No, advance care planning information given to patient to review. Patient plans to discuss their wishes with loved ones or provider. Fall risk Cognitive Screening 1) Repeat 3 items (Leader, Season, Table) 2) Clock draw: NORMAL 3) 3 item recall: Recalls 2 objects Results: NORMAL clock, 1-2 items recalled: COGNITIVE IMPAIRMENT LESS LIKELY Mini-CogTM Copyright Berto Vargas. Licensed by the author for use in [facility]; reprintedwith permission ([email or web address]). All rights reserved. Do you have sleep apnea, excessive snoring or daytime drowsiness?: no Reviewed and updated as needed this visit by clinical staff Reviewed and updated as needed this visit by Provider Social History Tobacco Use ??? Smoking status: Never Smoker ??? Smokeless tobacco: Never Used Substance Use Topics ??? Alcohol use: No Alcohol/week: 0.0 standard drinks Comment: not for about 35 years (as of 2014) Current providers sharing in care for this patient include: Patient Care Team: Juan José Michelle MD as PCP - General (Internal Medicine) Juan José Michelle MD as Assigned PCP The following health maintenance items are reviewed in [facility] and correct as of today: Health Maintenance Topic Date Due ??? HEPATITIS C SCREENING 1945 ??? ADVANCE CARE PLANNING 1945 ??? ZOSTER IMMUNIZATION (1 of 2) 1996 ??? AORTIC ANEURYSM SCREENING (SYSTEM ASSIGNED) 2011 ??? MEDICARE ANNUAL WELLNESS VISIT 01/27/2020 ??? COLORECTAL CANCER SCREENING 02/02/2020 ??? INFLUENZA VACCINE (1) 05/16/2020 ??? FALL RISK ASSESSMENT 02/23/2021 ??? LIPID 01/27/2024 ??? DTAP/TDAP/TD IMMUNIZATION (4 - Td) 09/20/2024 ??? PHQ-2 Completed ??? PNEUMOCOCCAL IMMUNIZATION 65+ LOW/MEDIUM RISK Completed ??? IPV IMMUNIZATION Aged Out ??? MENINGITIS IMMUNIZATION Aged Out ??? HEPATITIS B IMMUNIZATION Aged Out Current Outpatient Medications Medication Sig Dispense Refill ??? allopurinol (ZYLOPRIM) 300 MG tablet TAKE 1 TABLET BY MOUTH EVERY DAY 90 tablet 2 ??? brimonidine-timolol (COMBIGAN) 0.2-0.5 % ophthalmic solution 1 drop ??? dorzolamide-timolol (COSOPT) 2-0.5 % ophthalmic solution INSTILL 1 DROP INTO BOTH EYES TWICE DAILY 2 ??? finasteride (PROSCAR) 5 MG tablet Take 1 tablet (5 mg) by mouth daily 90 tablet 3 ??? lisinopril-hydrochlorothiazide (PRINZIDE/ZESTORETIC) 20-25 MG per tablet TAKE 1 TABLET BY MOUTH DAILY 90 tablet 1 ??? lisinopril-hydrochlorothiazide (PRINZIDE/ZESTORETIC) 20-25 MG tablet TAKE 1 TABLET BY MOUTH EVERY DAY 90 tablet 3 ??? order for DME Equipment being ordered: CPAP Patient Ruddy Calhoun was set up at [place] on May 25, 2015. Patient received a bookletmobile Airsense 10 Auto. Pressures were set at Auto 5 - 15 cm H2O. Patient???s ramp is 0 cm H2O for Off and FLEX/EPR is A Flex 2. Patient received a [employer] Mask name: Simplus Full Face mask Size Medium, heated tubing and heated humidifier. Patient is enrolled in the STM Program and does need to meet compliance. Patient has a follow up on TBD with LOIS Antonio. AKBAR CABRERA ??? triamterene-HCTZ (DYAZIDE) 37.5-25 MG capsule TAKE 1 CAPSULE BY MOUTH EVERY DAY 90 capsule 3 Supplements: Vitamin D 1000 international units Multiple vitamin No Known Allergies Review of Systems CONSTITUTIONAL: NEGATIVE for fever, chills, change in weight INTEGUMENTARY/SKIN: NEGATIVE for worrisome rashes, moles or lesions, reevaluate back and shoulders EYES: NEGATIVE for vision changes or irritation ENT/MOUTH: NEGATIVE for ear, mouth and throat problems RESP: NEGATIVE for significant cough or SOB CPAP BREAST: NEGATIVE for masses, tenderness or discharge CV: NEGATIVE for chest pain, palpitations or peripheral edema Causing problems with GI: NEGATIVE for nausea, abdominal pain, heartburn, or change in bowel habits : NEGATIVE for frequency, dysuria, or hematuria, nocturia 1-2 MUSCULOSKELETAL: NEGATIVE for significant arthralgias or myalgia NEURO: NEGATIVE for weakness, dizziness or paresthesias ENDOCRINE: NEGATIVE for temperature intolerance, skin/hair changes HEME: NEGATIVE for bleeding problems PSYCHIATRIC: NEGATIVE for changes in mood or affect OBJECTIVE: There were no vitals taken for this visit. Estimated body mass index is 38.09 kg/m?? as calculated from the following: Height as of 04/05/19: 1.676 m (5' 6). Weight as of 04/05/19: 107 kg (236 lb). Physical Exam BP 90/62 (BP Location: Left arm, Patient Position: Sitting, Cuff Size: Adult Large) Pulse 76 Temp 97.4 ??F (36.3 ??C) (Temporal) Ht 1.676 m (5' 6) Wt 101.7 kg (224 lb 1.6 oz) SpO2 96% BMI 36.17 kg/m?? GENERAL: healthy, alert and no distress EYES: [...] hepatosplenomegaly, no masses and bowel sounds normal testicles were descended bilaterally there is no inguinal masses or herniorrhaphy Anus was normal prostate gland was 2+ and smooth MS: no gross musculoskeletal defects noted, no edema, flatfeet SKIN: no suspicious lesions or rashes, neck and shoulders are covered with sheets of seborrheic keratoses no abnormal lesions noted NEURO: Normal strength and tone, mentation intact and speech normal PSYCH: mentation appears normal, affect normal/bright ASSESSMENT / PLAN: 1. Routine general medical examination at a health care facility - UA reflex to Microscopic and Culture - CBC with platelets - Comprehensive metabolic panel - Lipid panel reflex to direct LDL Fasting - Vitamin D Deficiency - TSH with free T4 reflex - Prostate spec antigen screen 2. Screening for prostate cancer - Prostate spec antigen screen 3. Screening for hypothyroidism - TSH with free T4 reflex 4. DIANNE (obstructive sleep apnea) 5. Idiopathic chronic gout of multiple sites without tophus - Uric acid 6. Hyperlipidemia LDL goal <130 - Lipid panel reflex to direct LDL Fasting 7. Vitamin D deficiency - Vitamin D Deficiency 8. Seborrheic keratosis, inflamed 9. Essential hypertension Reduce lisinopril HCT to 1/2 tablet daily - UA reflex to Microscopic and Culture - CBC with platelets - Comprehensive metabolic panel 10. Special screening for malignant neoplasms, colon - Fecal colorectal cancer screen (FIT); Future COUNSELING: Reviewed preventive health counseling, as reflected in patient instructions Estimated body mass index is 38.09 kg/m?? as calculated from the following: Height as of 04/05/19: 1.676 m (5' 6). Weight as of 04/05/19: 107 kg (236 lb). reports that he has never smoked. He [...] of care and provided an AVS. The for Ruddy meets the Care Plan requirement.This Care Plan has been established and reviewed with the Patient. Counseling Resources: ATP IV Guidelines Pooled Cohorts Equation Calculator Breast Cancer Risk Calculator FRAX Risk Assessment ICSI Preventive Guidelines Dietary Guidelines for Americans, 2010 USDA's MyPlate ASA Prophylaxis Lung CA Screening Juan José Michelle MD [facility] Identified Health Risks: documented in this encounter Plan of Treatment Not on filedocumented as of this encounter Procedures Procedure Name Priority Date/Time Associated Diagnosis Comme nts UA MACROSCOPIC WITH Routine 03/29/2020 11:33 Routine general R esults for this REFLEX TO MICROSCOPIC AM CDT medical examination at procedure are in AND CULTURE a health care fa cility the results Essential hypertension secti on. VITAMIN D DEFICIENCY Routine 03/29/2020 11:33 Routine general Results for this SCREENING AM CDT medical examination at [facility] are in a health care fa cility the results Vitamin D deficiency section . URIC ACID Routine 03/29/2020 11:33 Idiopathic chronic Resul ts for this AM CDT gout of multiple sites [facility] are in without tophus the results section. TSH WITH FREE T4 Routine 03/29/2020 11:33 Routine general Resu lts for this REFLEX AM CDT medical examination at [facility] are in a health care fa cility the results Screening for section. hypothyroidism PROSTATE SPECIFIC Routine 03/29/2020 11:33 Routine general Res ults for this ANTIGEN SCREEN AM CDT medical examination at [facility] are in a health care fa cility the results Screening for prostate secti on. cancer LIPID REFLEX TO Routine 03/29/2020 11:33 Routine general Resul ts for this DIRECT LDL PANEL AM CDT [facility] are in a health care fa cility the results Hyperlipidemia LDL section. goal <130 COMPREHENSIVE Routine 03/29/2020 11:33 Routine general Results for this METABOLIC PANEL AM CDT [facility] are in a health care fa cility the results Essential hypertension secti on. CBC WITH PLATELETS Routine 03/29/2020 11:33 Routine general Re sults for this AM CDT medical examination at [facility] are in a health care fa cility the results Essential hypertension secti on. documented in this encounter Results Uric acid (03/29/2020 11:33 AM CDT) athologist Signature Uric Acid 5.1 3.5 - 7.2 03/31/2020 [facility] mg/dL 12:[address] [facility] Specimen Anatomical Collection Method Collection Time Receive d Time (Source) Location / / Volume Laterality Blood specimen 03/29/2020 11:33 0 (specimen) AM CDT 11:35 AM CDT Juan José Michelle MD LAB - BLOOD ORDERABLES Performing Organization Address City/State/ZIP Code Phon e Number M [facility] [address] [address] [facility] [address] [address], U [phone] Prostate spec antigen screen (03/29/2020 11:33 AM CDT) athologist Signature PSA 0.44 0 - 4 ug/L 03/30/2020 [facility] 12:[address] [facility] Comment: Assay Method: Chemiluminescence using Siemens [place] analyzer Specimen Anatomical Collection Method Collection Time Receive d Time (Source) Location / / Volume Laterality Blood specimen 03/29/2020 11:33 0 (specimen) AM CDT 11:35 AM CDT Juan José Michelle MD LAB - BLOOD ORDERABLES Performing Organization Address City/State/ZIP Code Phon e Number M [facility] [address] [address] [facility] [address] [address], [place] [phone] TSH with free T4 reflex (03/29/2020 11:33 AM CDT) athologist Signature TSH 1.34 0.40 - 4.00 03/31/2020 [facility] mU/L 12:[address] [facility] Specimen Anatomical Collection Method Collection Time Receive d Time (Source) Location / / Volume Laterality Blood specimen 03/29/2020 11:33 0 (specimen) AM CDT 11:35 AM CDT Juan José Michelle MD LAB - BLOOD ORDERABLES Performing Organization Address City/State/ZIP Code Phon e Number [facility] [address] [address] [facility] [address] [address], [place] [phone] Vitamin D Deficiency (03/29/2020 11:33 AM CDT) athologist Signature Vitamin D 58 20 - 75 03/30/2020 [facility] Deficiency ug/L 12:08 PM CDT [facility] Comment: Season, race, dietary intake, and treatm ent affect the concentration of 14-utimzyg-Cngnnxv D. Values may decreas e during winter months and increase during summer months. Values 20-29 ug/L may indicate Vitamin D insufficiency and values <20 ug/L may indicate Vitamin D deficiency. Vitamin D determination is routinely per formed by an immunoassay specific for 25 hydroxyvitamin D3. ??If an individual is on vitamin D2 (ergocalciferol) supplementation, please specify 25 [place] vi tamin D2 and D3 level determination by LCMSMS test VITD23. Specimen Anatomical Collection Method Collection Time Receive d Time (Source) Location / / Volume Laterality Blood specimen 03/29/2020 11:33 0 (specimen) AM CDT 11:35 AM CDT Juan José Michelle MD LAB - BLOOD ORDERABLES Performing Organization Address City/State/ZIP Code Phon e Number [address] [address] [facility] Lipid panel reflex to direct LDL Fasting (03/29/2020 11:33 AM CDT) Analysis Performed At Patho logist Time Signature Cholesterol 146 <200 mg/dL 03/31/2020 [facility] 12:[address] [facility] Triglycerides 74 <150 mg/dL 03/31/2020 [facility] 12:[address] [facility] HDL Cholesterol 52 >39 mg/dL 03/31/2020 [facility] 12:[address] [facility] LDL Cholesterol 79 <100 mg/dL 03/31/2020 [facility] Calculated 12:[address] [facility] Comment: Desirable: <100 mg/dl Non HDL Cholesterol 94 <130 mg/dL 03/31/2020 12:28 PM CDT [facility] Specimen Anatomical Collection Method Collection Time Receive d Time (Source) Location / / Volume Laterality Blood specimen 03/29/2020 11:33 0 (specimen) AM CDT 11:35 AM CDT Juan José Michelle MD LAB - BLOOD ORDERABLES Performing Organization Address City/[facility]/ZIP Code Phon e Number M [facility] [address] [address] [phone] [facility] [address] [phone], [facility] [phone] Comprehensive metabolic panel (03/29/2020 11:33 AM CDT) P athologist Signature Sodium 139 133 - 144 03/31/2020 [facility] mmol/L 11:24 AM CDT [facility] Potassium 3.7 3.4 - 5.3 03/31/2020 [facility] mmol/L 11:24 AM CDT [facility] Chloride 103 94 - 109 03/31/2020 [facility] mmol/L 11:24 AM CDT [facility] Carbon Dioxide 28 20 - 32 03/31/2020 [facility] mmol/L 12:07 PM T [facility] Anion Gap 8 3 - 14 03/31/2020 [facility] mmol/L 12:07 PM T [facility] Glucose 94 70 - 99 03/31/2020 [facility] mg/dL 12:07 PM T [facility] Urea Nitrogen 21 7 - 30 03/31/2020 [facility] mg/dL 12:07 PM T [facility] Creatinine 1.16 0.66 - 03/31/2020 [facility] 1.25 mg/dL 12:07 PM T [facility] GFR Estimate 62 >60 03/31/2020 [facility] mL/min/{1. 12:07 PM T [facility] 73_m2} [facility] Comment: Non GFR Calc Starting 09/01/2018, serum creatinine ba sed estimated GFR (eGFR) will be calculated using the Chronic Kidney Dise [facility] Epidemiology Collaboration (CKD-EPI) equation. GFR Estimate If 72 >60 mL/min/{1.73_m2} 03/31/2020 12 :07 PM [facility] Black [facility] Comment: GFR Calc Starting 09/01/2018, serum creatinine ba sed estimated GFR (eGFR) will be calculated using the Chronic Kidney Dise [facility] Epidemiology Collaboration (CKD-EPI) equation. Calcium 8.9 8.5 - 10.1 03/31/2020 12:07 PM [facility] mg/dL [facility] Bilirubin Total 0.6 0.2 - 1.3 mg/dL 03/31/2020 12:28 P [facility] Albumin 3.6 3.4 - 5.0 g/dL 03/31/2020 12:28 PM [facility] Protein Total 7.3 6.8 - 8.8 g/dL 03/31/2020 12:28 PM F [facility] Alkaline Phosphatase 60 40 - 150 U/L 03/31/2020 12:28 PM [facility] ALT 35 0 - 70 U/L 03/31/2020 12:28 PM [facility] AST 20 0 - 45 U/L 03/31/2020 12:28 PM [facility] Specimen Anatomical Collection Method Collection Time Receive d Time (Source) Location / / Volume Laterality Blood specimen 03/29/2020 11:33 0 (specimen) AM CDT 11:35 AM CDT Juan José Michelle MD LAB - BLOOD ORDERABLES Performing Organization Address City/State/ZIP Code Phon e Number [facility] [address] [place] [address] [facility] [address] [place], [place] [address] [facility] [address] [place] [address], [place] [phone] CBC with platelets (03/29/2020 11:33 AM CDT) P athologist Signature WBC 10.1 4.0 - 11.0 03/29/2020 [facility] 10e9/L 1:12 PM CDT [facility] RBC Count 4.99 4.4 - 5.9 03/29/2020 [facility] 10e12/L 1:12 PM CDT [facility] Hemoglobin 15.5 13.3 - 03/29/2020 [facility] 17.7 g/dL 1:12 PM CDT [facility] Hematocrit 46.0 40.0 - 03/29/2020 [facility] 53.0 % 1:12 PM CDT [facility] MCV 92 78 - 100 03/29/2020 [facility] fl 1:12 PM CDT [facility] MCH 31.1 26.5 - 03/29/2020 [facility] 33.0 pg 1:12 PM CDT [facility] MCHC 33.7 31.5 - 03/29/2020 [facility] 36.5 g/dL 1:12 PM CDT [facility] RDW 14.8 10.0 - 03/29/2020 [facility] 15.0 % 1:12 PM CDT [facility] Platelet Count 224 150 - 450 03/29/2020 [facility] 10e9/L 1:12 PM CDT [facility] Specimen Anatomical Collection Method Collection Time Receive d Time (Source) Location / / Volume Laterality Blood specimen 03/29/2020 11:33 0 (specimen) AM CDT 11:35 AM CDT Juan José Michelle MD LAB - BLOOD ORDERABLES Performing Organization Address City/[facility]/ZIP Code Phon e Number [facility] [address] [place] [address] UA reflex to Microscopic and Culture (03/29/2020 11:33 AM CDT) [facility] Method Time Signature Color Urine Yellow 03/29/2020 [facility] 11:50 AM CLINICS CDT [facility] Appearance Urine Clear 03/29/2020 [facility] 11:50 AM [facility]INICS CD[facility] Glucose Urine Negative NEG^Negat 03/29/2020 [facility] [place] mg/dL 11:50 AM CLINICS CDT [facility] Bilirubin Urine Negative NEG^Negat 03/29/2020 [facility] [place] 11:50 AM [facility]INICS [facility] Ketones Urine Negative NEG^Negat 03/29/2020 [facility] [place] mg/dL 11:50 AM CLINICS CD[facility] Specific [place] 1.025 1.003 - 03/29/2020 [facility] Urine 1.035 11:50 AM CLINICS CD[facility] Blood Urine Negative NEG^Negat 03/29/2020 [facility] [place] 11:50 AM CLINICS CD[facility] pH Urine 7.0 5.0 - 7.0 03/29/2020 [facility] pH 11:50 AM [facility]ICS [facility] Protein Albumin Negative NEG^Negat 03/29/2020 [facility] Urine [place] mg/dL 11:50 AM CLINICS CD[facility] Urobilinogen 0.2 0.2 - 1.0 03/29/2020 [facility] Urine EU/dL 11:50 AM [facility]INICS [facility] Nitrite Urine Negative NEG^Negat 03/29/2020 [facility] [place] 11:50 AM CLINICS CD[facility] Leukocyte Negative NEG^Negat 03/29/2020 [facility] Esterase Urine [place]jan 11:50 AM CLINICS CD[facility] Source Midstream 03/29/2020 [facility] Urine 11:34 AM CLINICS [facility] Specimen (Source) Anatomical Collection Method Collection Time Re ceived Time Location / / Volume Laterality Examination of 03/29/2020 11:33 0 midstream urine AM CDT 11:34 AM CDT specimen (procedure) Juan José Michelle MD LAB - URINE ORDERABLES Performing Organization Address City/State/ZIP Code Phon e Number [facility] [address] [place] [place] [address] documented in this encounter Visit Diagnoses Diagnosis Routine general medical examination at a health care facility - Primary Screening for prostate cancer Special screening for malignant neoplasm of prostate Screening for hypothyroidism Screening for thyroid disorder DIANNE (obstructive sleep apnea) Obstructive sleep apnea (adult) (pediatr ic) 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) Hyperlipidemia LDL goal <130 Other and unspecified hyperlipidemia Vitamin D deficiency Unspecified vitamin D deficiency Seborrheic keratosis, inflamed Inflamed seborrheic keratosis Essential hypertension Unspecified essential hypertension Special screening for malignant neoplasm s, colon documented in this encounter Care Teams Data Analysis Assistant Relationship Specialty Start Date End Date Juan José Michelle MD PCP - General Internal Medicine 05/08/15 01/09/21 Juan José Michelle MD Assigned PCP 07/26/16 12/30/20 [address] [place] [phone] documented as of this encounter
--- OUTSIDE RECORDS SUMMARY | 2022-06-20 14:11 | XMS_ITS | Encounter Summary ---
:1945 Author Organization [place] Address [facility] [place] [address] Care Team Providers Name Role Phone Juan José Michelle MD Primary Care Provider Juan José Michelle MD Unavailable Encounter Details Date Type Department Care Team Description 04/05/2019 Travel Social History Tobacco Use Types Packs/Day [...] on filedocumented in this encounter Care Teams Director Paid Media Relationship Specialty Start Date End Date Juan José Michelle MD PCP - General Internal Medicine 05/08/15 01/09/21 Juan José Michelle MD Assigned PCP 07/26/16 12/30/20 [address] [place] [phone] documented as of this encounter
--- OUTSIDE RECORDS SUMMARY | 2022-06-20 14:11 | XMS_ITS | Encounter Summary ---
:1945 Author Organization [place] Address Formerly [facility] [place] [address] Care Team Providers Name Role Phone Juan José Michelle MD Primary Care Provider Juan José Michelle MD Unavailable Encounter Details Date Type Department Care Team Description 03/31/2020 Telephone [facility] Juan José Michelle MD [place] [address] [facility] [address] [facility], [address] [place] [address] [place] [address] [phone] Social History Tobacco Use Types Packs/Day Years [...] been in contact with No / Unsure 03/29/2020 9:50 AM CDT someone who was confirmed or suspected to have Coronavirus / COVID-19? documented as of this encounter Miscellaneous Notes Telephone Encounter - Lianet Beck CMA - 03/31/2020 2:18 PM CDT Panel Management Review Patient has the following on his problem list: IVD ASA: Passed Last LDL: Lab Results Component Value Date CHOL 146 03/29/2020 Lab Results Component Value Date HDL 52 03/29/2020 Lab Results Component Value Date LDL 79 03/29/2020 Lab Results Component Value Date TRIG 74 03/29/2020 Lab Results Component Value Date CHOLHDLRATIO 3.4 10/31/2015 Is the patient on a Statin? NO Is the patient on Aspirin? NO Last three blood pressure readings: BP Readings from Last 3 Encounters: 03/29/20 90/62 04/05/19 133/89 02/23/19 108/76 Tobacco History: History Smoking Status ??? Never Smoker Smokeless Tobacco ??? Never Used Hypertension Last three blood pressure readings: BP Readings from Last 3 Encounters: 03/29/20 90/62 04/05/19 133/89 02/23/19 108/76 Blood pressure: Passed HTN Guidelines: Less than 140/90 Composite cancer screening Chart review shows that this patient is due/due soon for the following Colonoscopy Summary: Patient is due/failing the following: colonoscopy Action needed: Patient had appointment 03/29/2020 and colonoscopy was ordered Type of outreach: no action needed Questions for provider review: None Lianet Beck MA Chart routed to . documented in this encounter Plan of Treatment Not on filedocumented as of this encounter Visit Diagnoses Not on filedocumented in this encounter Care Teams Model And Pattern Supervisor Relationship Specialty Start Date End Date Juan José Michelle MD PCP - General Internal Medicine 05/08/15 01/09/21 Juan José Michelle MD Assigned PCP 07/26/16 12/30/20 [address] [place] [phone] documented as of this encounter
--- OUTSIDE RECORDS SUMMARY | 2022-06-20 14:11 | XMS_ITS | Encounter Summary ---
:1945 Author Organization [place] Address [address] [place] [address] Care Team Providers Name Role Phone Juan José Michelle MD Primary Care Provider Juan José Michelle MD Unavailable Reason for Visit Reason Comments Medication Refill Encounter Details Date Type Department Care Team Description 12/09/2018 Refill [facility] Juan José Michelle MD Medication Refill [place] [address] [facility] [address] [facility] [address] [facility] [address] [facility], [address] [place] [address] [place] [address] [phone] Social History Tobacco Use Types Packs/Day Years [...] this encounter Miscellaneous Notes Telephone Encounter - Abbi Werner RN - 12/10/2018 10:20 AM CDT Routing refill request to provider for review/approval because: Labs not current: ALT/Uric acid (Allopurinol) Triamterene-hydrochlorothiazide Prescription approved per [facility] Refill Protocol. Abbi Hawthorne RN Telephone Encounter - Rula Russell CMA - 12/09/2018 2:55 PM CDT Pending Prescriptions: Disp Refills allopurinol (ZYLOPRIM) 300 MG tablet [Pha*90 tab*0 Sig: TAKE 1 TABLET BY MOUTH EVERY DAY triamterene-HCTZ (DYAZIDE) 37.5-25 MG cap*90 cap*0 Sig: TAKE 1 CAPSULE BY MOUTH EVERY DAY Allopurinol Last Written Prescription Date: 09/10/2018 Last Fill Quantity: 90, # refills: 0 Last office visit: 11/30/2018 with prescribing provider: Future Office Visit: Triamterene HCTZ Last Written Prescription Date: 09/11/2018 Last Fill Quantity: 90, # refills: 0 Last office visit: 11/30/2018 with prescribing provider: Future Office Visit: Requested Prescriptions Pending Prescriptions Disp Refills ??? allopurinol (ZYLOPRIM) 300 MG tablet [Pharmacy Med Name: ALLOPURINOL 300 MG TABLET] 90 tablet 0 Sig: TAKE 1 TABLET BY MOUTH EVERY DAY Gout Agents Protocol Failed - 12/09/2018 7:35 AM Failed - ALT on file in past 12 months Recent Labs Lab Test 11/27/17 1040 ALT 58 Failed - Has Uric Acid on file in past 12 months and value is less than 6 Recent Labs Lab Test 11/27/17 1040 URIC 4.7 If level is 6mg/dL or greater, ok to refill one time and refer to provider. Passed - CBC on file in past 12 months Recent Labs Lab Test 12/04/18 1122 WBC 10.4 RBC 4.97 HGB 15.2 HCT 46.7 PLT 222 Passed - Recent (12 mo) or future (30 days) visit within the authorizing provider's specialty Patient had office visit in the last 12 months or has a visit in the next 30 days with authorizing provider or within the authorizing provider's specialty. See Patient Info tab in inbasket, or Choose Columns in Meds & Orders section of the refill encounter. Passed - Medication is active on med list Passed - Patient is age 18 or older Passed - Normal serum creatinine on file in the past 12 months Recent Labs Lab Test 12/04/18 1122 CR 1.23 ??? triamterene-HCTZ (DYAZIDE) 37.5-25 MG capsule [Pharmacy Med Name: TRIAMTERENE-HCTZ 37.5-25 MG CP] 90 capsule 0 Sig: TAKE 1 CAPSULE BY MOUTH EVERY DAY Diuretics (Including Combos) Protocol Passed - 12/09/2018 7:35 AM Passed - Blood pressure under 140/90 in past 12 months BP Readings from Last 3 Encounters: 12/09/18 128/78 12/04/18 119/80 11/24/18 113/80 Passed - Recent (12 mo) or future (30 days) visit within the authorizing provider's specialty Patient had office visit in the last 12 months or has a visit in the next 30 days with authorizing provider or within the authorizing provider's specialty. See Patient Info tab in inbasket, or Choose Columns in Meds & Orders section of the refill encounter. 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
--- OUTSIDE RECORDS SUMMARY | 2022-06-20 14:11 | XMS_ITS | Encounter Summary ---
:1945 Author Organization [place] Address [address] [facility] [place] [address] Care Team Providers Name Role Phone Juan José Michelle MD Primary Care Provider Juan José Michelle MD Unavailable Encounter Details Date Type Department Care Team Description 04/01/2019 Documentation Only [facility] Sleep Luigi Grullon ett [place], [facility] [address] [facility] [address] [place] [address] [place] [address] [phone] Social History Tobacco Use Types Packs/Day Years [...] documented as of this encounter Progress Notes Penny Brito - 04/01/2019 2:08 PM CDT Patient was very irritated that he had to fill out a sleep history questionnaire. I tried to explainto him that he's considered a new patient because it's been over three years since he's been seen. He said that we should have all his information and he shouldn't have to fill out the paperwork. He was very upset. I tried to explain but he just wanted to argue. He said he will take it up with the doctor when he comes in. Penny Brito [facility] Business Manager documented in this encounter Plan of Treatment Not on filedocumented as of this encounter Visit Diagnoses Not on filedocumented in this encounter Care Teams Animal Caretaker Relationship Specialty Start Date End Date Juan José Michelle MD PCP - General Internal Medicine 05/08/15 01/09/21 Juan José Michelle MD Assigned PCP 07/26/16 12/30/20 [address] [facility] [address] [phone] documented as of this encounter
--- OUTSIDE RECORDS SUMMARY | 2022-06-20 14:11 | XMS_ITS | Encounter Summary ---
:1945 Author Organization [facility] Address [address] [place] [address] Care Team Providers Name Role Phone Juan José Michelle MD Primary Care Provider Juan José Michelle MD Unavailable Reason for Referral Diagnostic Imaging XR (Routine) - Closed Specialty Diagnoses / Procedures Referred By Contact Refer red To Contact Diagnoses Great toe pain, right Vickie Dudley Procedures XR Toe Right G/E 2 Views MD Lucia [address] [place], [place] [address] Referral ID Status Reason Start Date Expiration Date Visits Requ ested Visits Authorized [id number] Closed 01/13/2019 01/13/2020 1 1 Reason for Visit Reason Comments Toe Pain Encounter Details Date Type Department Care Team Description 01/13/[address] [facility] [place], Great toe pain, right (Primary Dx); [facility] [place] Vickie Myers, History of gout [address] [facility] [place], [place] [address] [address] [place], [place] [phone] [address] Social History Tobacco Use Types Packs/Day Years [...] Sign Reading Time Taken Comments Blood Pressure 110/70 01/13/2019 1:08 PM CDT Pulse 95 01/13/2019 1:08 PM CDT Temperature 36.9 ??C (98.5 ??F) 01/13/2019 1:08 PM CDT Respiratory Rate 16 01/13/2019 1:08 PM CDT Oxygen Saturation 95% 01/13/2019 1:08 PM CDT Inhaled Oxygen Concentration - - Weight 110.2 kg (243 lb) 01/13/2019 1:08 PM CDT Height 170.2 cm (5' 7) 01/13/2019 1:08 PM CDT Body Mass Index 38.06 01/13/2019 1:08 PM CDT documented in this encounter Patient Instructions Patient InstructionsVickie Dudley MD - 01/13/2019 1:20 PM CDT Follow-up if worsening redness, swelling, or pain involving the right great toe, as discussed. documented in this encounter Progress Notes Vickie Dudley MD - 01/13/2019 1:20 PM CDT SUBJECTIVE: Ruddy Calhoun is a 73 year old male presenting with a chief complaint of Chief Complaint Patient presents with ??? Toe Pain He is an established patient of [facility]. HPI: The patient is a 73-year-old male, with history of recent left shoulder surgery 5 weeks ago. Patient has a known history of idiopathic chronic gout of multiple sites (usually involving his ankles)without tophus, obesity, and hypertension. Patient is on Allopurinol. Medications include Lisinopril- Hydrochlorthiazide and Triamterene-Hydrochlorothiazide. Total dose of Hydrochlorothiazide is 50 mg daily. Patient is on Celebrex, but he denies using other NSAIDs. Patient has been prescribed Indomethacin 25 mg twice daily in the past, but do not see that he has been on Prednisone treatment. Last Creatinine was 1.23, with GFR 58 in 11/2018. Patient developed redness involving the fat pad of his right great toe 3 days ago, starting after walking around a yanez. Patient did not find a rock or anything specific in his shoe, but he would like to rule out a foreign body. Redness and pain involving the affected area has improved significantly over the past 24 hours. Patient consumed shrimp 24 hours prior to the onset of his symptoms. He deniesfever, chills, nausea, or vomiting. Toe pain is not present at rest, but patient notices it after walking for a while. Patient was unable to walk without pain yesterday, stating that he is significantly improved today. Review of Systems No paresthesias or weakness. No chest pain or shortness of breath. Left shoulder pain is significantly improved post recent shoulder surgery, no longer using Oxycodone. Patient is undergoing Physical Therapy for his left shoulder, with appointment at 3 PM today. Patient Active Problem List Diagnosis ??? Essential [...] ??? Obesity (BMI 35.0-39.9) with comorbidity (H) Past Medical History: Diagnosis Date ??? Arthritis ??? HTN (hypertension) ??? Sleep apnea No Known Allergies Family History Problem Relation Age of Onset ??? Cerebrovascular Disease Mother ??? Diabetes Sister Current Outpatient Medications Medication Sig Dispense Refill ??? allopurinol (ZYLOPRIM) 300 MG tablet TAKE 1 TABLET BY MOUTH EVERY DAY 90 tablet 1 ??? aspirin (ASA) 325 MG EC tablet Take 1 tablet (325 mg) by mouth 2 times daily 60 tablet 0 ??? brimonidine-timolol (COMBIGAN) 0.2-0.5 % ophthalmic solution 1 drop ??? celecoxib (CELEBREX) 200 MG capsule Take 1 capsule (200 mg) by mouth daily 30 capsule 0 ??? dorzolamide-timolol (COSOPT) 2-0.5 % ophthalmic solution INSTILL 1 DROP INTO BOTH EYES TWICE DAILY 2 ??? ketorolac (TORADOL) 10 MG tablet Take 1 tablet (10 mg) by mouth every 6 hours as needed for moderate pain 4 tablet 0 ??? lisinopril-hydrochlorothiazide (PRINZIDE/ZESTORETIC) 20-25 MG per tablet TAKE 1 TABLET BY MOUTH DAILY 90 tablet 1 ??? lisinopril-hydrochlorothiazide (PRINZIDE/ZESTORETIC) 20-25 MG tablet RTS 10/22TAKE 1 TABLET BYMOUTH EVERY DAY 90 tablet 1 ??? ondansetron (ZOFRAN-ODT) 4 MG ODT tab Take 1 tablet (4 mg) by mouth every 30 minutes as needed for nausea or vomiting 30 tablet 0 ??? order for DME Equipment being ordered: CPAP Patient Ruddy Calhoun was set up at [place] on May 25, 2015. Patient received a Resmed Airsense 10 Auto. Pressures were set at Auto 5 - 15 cm H2O. Patient???s ramp is 0 cm H2O for Off and FLEX/EPR is A Flex 2. Patient received a [employer] Mask name: Simplus Full Face mask Size Medium, heated tubing and heated humidifier. Patient is enrolled in the STM Program and does need to meet compliance. Patient has a follow up on TBD with LOIS Antonio. AKBAR CABRERA ??? senna-docusate (SENOKOT-S/PERICOLACE) 8.6-50 MG tablet Take 1-2 tablets by mouth 2 times daily 30 tablet 0 ??? triamterene-HCTZ (DYAZIDE) 37.5-25 MG capsule TAKE 1 CAPSULE BY MOUTH EVERY DAY 90 capsule 0 Social History Tobacco Use ??? Smoking status: Never Smoker ??? Smokeless tobacco: Never Used Substance Use Topics ??? Alcohol use: No Alcohol/week: 0.0 oz Comment: not for about 35 years (as of 2014) OBJECTIVE BP 110/70 (BP Location: Right arm, Patient Position: Chair, Cuff Size: Adult Large) Pulse 95 Temp 98.5 ??F (36.9 ??C) (Oral) Resp 16 Ht 1.702 m (5' 7) Wt 110.2 kg (243 lb) SpO2 95% BMI 38.06 kg/m?? Physical Exam GENERAL APPEARANCE: Awake, alert, and in no acute distress. PSYCHIATRIC: Pleasant, smiling affect. HEENT: Sclera anicteric. No conjunctivitis. NECK: Spontaneous full range of motion. HEART: Normal S1, S2. Regular rate and rhythm. No murmurs, rubs, or gallops. LUNGS: No respiratory distress. No wheezes, rales, or rhonchi. ABDOMEN: Obese. EXTREMITIES: Moves 3 extremities, including his right foot and toes. Left upper extremity is in a shoulder immobilizer. 1+ edema to midcalf level bilaterally. No calf erythema or tenderness noted. RIGHT FOOT: Full range of motion. Intact strength. Distal pulses intact. Great toes are mildly erythematous bilaterally. There is a 1 cm prominence noted involving the distal fat pad of the right greattoe, which is not tender to palpation. No fluctuance noted. Some callus formation noted involving the lateral right great toe, but no areas of skin breakdown. No blistering or bulla. NEUROLOGIC: Gait within normal limits. Labs: No results found for this or any previous visit (from the past 24 hour(s)). X-ray Right Great Toe: No obvious foreign body or acute fracture. Cannot rule out DJD versus gout related changes, as reviewed by this examiner. ASSESSMENT: ICD-10-CM 1. Great toe pain, right, improving. Differential includes resolving gout. Doubt cellulitis, MRSA, or abscess. M79.674 XR Toe Right G/E 2 Views 2. History of gout. Z87.39 PLAN: Discussed risk/benefits of antibiotics and oral steroids, which patient feels comfortable holding off on at this time. Patient Instructions Follow-up if worsening redness, swelling, or pain involving the right great toe, as discussed. Discussed risks and benefits of treatment strategies, as noted in the Assessment and Plan sections. The patient was discharged ambulatory and in stable condition post discussion of follow up. 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 AGUSTIN HEART MD Narrative 01/13/2019 7:04 PM CDT TOE RIGHT TWO OR MORE VIEWS ?? 01/13/2019 1:38 PM HISTORY: Great toe pain, right. COMPARISON: None. FINDINGS: Severe osteoarthritic degenera tive changes are present at the first metatarsophalangeal joint with bunion deformity. Mild midfoot degenerative change is present. Soft tissues are unremarkable. Procedure Note Agustin Heart MD - 01/13/2019F ormatting of this note might be different from the original. TOE RIGHT TWO OR MORE VIEWS 01/13/2019 1:3 8 PM HISTORY: Great toe pain, right. COMPARISON: None. FINDINGS: Severe osteoarthritic degenera tive changes are present at the first metatarsophalangeal joint with bunion deformity. Mild midfoot degenerative change is present. Soft tissues are unremarkable. IMPRESSION: Severe first metatarsophalan geal joint osteoarthritis with bunion deformity. AGUSTIN HEART MD Vickie Dudley MD IMG DIAGNOSTIC IM AGING ORDERABLES documented in this encounter Visit Diagnoses Diagnosis Great toe pain, right - Primary History of gout Personal history of other endocrine, met abolic, and immunity disorders Great toe pain, right documented in this encounter Care Teams Supervisor Grading Relationship Specialty Start Date End Date Juan José Michelle MD PCP - General Internal Medicine 05/08/15 01/09/21 Juan José Michelle MD Assigned PCP 07/26/16 12/30/20 [address] [facility] [address] [place] [phone] documented as of this encounter
--- OUTSIDE RECORDS SUMMARY | 2022-06-20 14:11 | XMS_ITS | Encounter Summary ---
:1945 Author Organization [place] Address [address] [place], [place] [address]. [place] [address] Care Team Providers Name Role Phone Juan José Michelle MD Primary Care Provider Juan José Michelle MD Unavailable Encounter Details Date Type Department Care Team Description 03/29/2020 Travel Social History Tobacco Use Types Packs/Day [...] on filedocumented in this encounter Care Teams Systems Integration Engineer Relationship Specialty Start Date End Date Juan José Michelle MD PCP - General Internal Medicine 05/08/15 01/09/21 Juan José Michelle MD Assigned PCP 07/26/16 12/30/20 [address] [facility] [address] [place] [phone] documented as of this encounter
--- OUTSIDE RECORDS SUMMARY | 2022-06-20 14:11 | XMS_ITS | Encounter Summary ---
:1945 Author Organization [place] Address [facility] [place] [address] Care Team Providers Name Role Phone Juan José Michelle MD Primary Care Provider Juan José Michelle MD Unavailable Encounter Details Date Type Department Care Team Description 01/13/2019 Travel Social History Tobacco Use Types Packs/Day [...] on filedocumented in this encounter Care Teams Radiology Physician Assistant Relationship Specialty Start Date End Date Juan José Michelle MD PCP - General Internal Medicine 05/08/15 01/09/21 Juan José Michelle MD Assigned PCP 07/26/16 12/30/20 [address] [place] [phone] documented as of this encounter
--- OUTSIDE RECORDS SUMMARY | 2022-06-20 14:11 | XMS_ITS | Encounter Summary ---
:1945 Author Organization [place] Address [facility] [place] [address] Care Team Providers Name Role Phone Juan José Michelle MD Primary Care Provider Juan José Michelle MD Unavailable Encounter Details Date Type Department Care Team Description 02/09/2019 [facility] general medical examination at a health care facility; Angy Laboratory Special screening for malign ant neoplasms, colon [address], [place] [phone] Social History Tobacco Use Types Packs/Day Years [...] Associated Diagnosis Comme nts FECAL COLORECTAL Routine 02/01/2019 9:53 AM Routine general Re sults for this CANCER SCREEN FIT CDT medical examination pro cedure are in at a health care the results facility section. Special screening for malignant neoplasms, colon documented in this encounter Results Fecal colorectal cancer screen (FIT) (02/01/2019 9:53 AM CDT) Analysis Performed At Patho logist Time Signature Occult Blood Negative NEG^Negati 02/07/2019 [facility] FIT ve 10:37 AM CDT [facility] Specimen Anatomical Collection Method Collection Time Receive d Time (Source) Location / / Volume Laterality Stool specimen 02/01/2019 9:53 AM 019 9:58 (specimen) CDT AM CDT Juan José Michelle MD LAB - STOOLS ORDERABLES Performing Organization Address City/State/ZIP Code Phon e Number [facility] [address] [place] [address] [facility] documented in this encounter Visit Diagnoses Diagnosis Routine general medical examination at a health care facility Special screening for malignant neoplasm s, colon documented in this encounter Care Teams Barrel Leveler Relationship Specialty Start Date End Date Juan José Michelle MD PCP - General Internal Medicine 05/08/15 01/09/21 Juan José Michelle MD Assigned PCP 07/26/16 12/30/20 [address] [place] [address] documented as of this encounter
--- OUTSIDE RECORDS SUMMARY | 2022-06-20 14:11 | XMS_ITS | Encounter Summary ---
:1945 Author Organization [facility] Address [address] [place] [address] Care Team Providers Name Role Phone Juan José Michelle MD Primary Care Provider Juan José Michelle MD Unavailable Reason for Visit Reason Onset Date Comments Forms 08/10/2019 disability parking Encounter Details Date Type Department Care Team Description 08/10/2019 Telephone [facility] Juan José Michelle, Forms (disability Clinic Angy WISDOM parking ) [address] [facility] [facility], [address] [place] [id number] [place] [phone] Social History Tobacco Use Types Packs/Day Years [...] this encounter Miscellaneous Notes Telephone Encounter - Ellen Harden N - 08/16/2019 2:40 PM CST Form Completed and mailed back to patient THA WASHING SYSTEM OPERATOR Telephone Encounter - Lianet Beck CMA - 08/10/2019 5:07 PM CST We received a document from Disability Parking Certificate. Please fill out the requested form, signand place in the black tray between MA Pods. Lianet Beck MA THA WASHING SYSTEM OPERATOR Telephone Encounter - Poornima Klein - 08/10/2019 3:41 PM CST Reason for Call: Form, our goal is to have forms completed with 72 hours, however, some forms may require a visit or additional information. Type of letter, form or note: disability Who is the form from?: Patient Where did the form come from: Patient or family brought in What clinic location was the form placed at?: [facility] Where the form was placed: 1st floor Knockdown Man tray Box/Folder Additional comments: Please mail form back to patient and he'll mail it in with the fee. If you needto contact him please call . [phone] Call taken on 08/10/2019 at 3:41 PM by Poornima Klein THA WASHING SYSTEM OPERATOR documented in this encounter Plan of Treatment Not on filedocumented as of this encounter Visit Diagnoses Not on filedocumented in this encounter Care Teams Nutrition Manager Relationship Specialty Start Date End Date Juan José Michelle MD PCP - General Internal Medicine 05/08/15 01/09/21 Juan José Michelle MD Assigned PCP 07/26/16 12/30/20 [address] [place] [phone] documented as of this encounter
--- OUTSIDE RECORDS SUMMARY | 2022-06-20 14:11 | XMS_ITS | Encounter Summary ---
:1945 Author Organization [facility] Address [address] [place] [address] Care Team Providers Name Role Phone Juan José Michelle MD Primary Care Provider Juan José Michelle MD Unavailable Reason for Visit Auth/Cert Specialty Diagnoses / Procedures Referred By Contact Refer red To Contact Surgery Diagnoses Left torn rotator cuff Rh Periop Services Procedures COMBINED ARTHROSCOPY SHOULDER, OPEN ROTATOR CUFF REPAIR COMBINED ARTHROSCOPY SHOULDER, OPEN DISTAL CLAVICLE RESECTION [address] [place], [place] [address] Phone: Fax: Referral ID Status Reason Start Date Expiration Date Visits Requ ested Visits Authorized [id number] 1 1 Encounter Details Date Type Department Care Team Description 12/09/2018 Anesthesia Event [facility] Jerod Gong PeriOp Services MD [place] [address] [place] [address] ANESTHESIA [id number] [place], [place] [address] (Wo rk) Anesthesia Record Procedure Summary Procedure Name Responsible Anesthesia Start Anesthesia Stop Anesthesiologist Time Time Open left shoulder Jerod Gong MD 12/09/18 0955 12/09 1212 rotator cuff repair with repair of supraspinatus, infraspinatus and teres minor. Distal clavicle excision and acromioplasty (Left Shoulder) Events Date Time Event Comment 12/09/2018 0936 Non-OR Block Start Jerodmarizol Gong 0945 Non-OR Block Stop Jerod hart 0955 An Start 0957 MD Present 1000 An Start Data 1000 An Induction 1004 An Intubation 1058 MD Present 1105 MD Present 1129 MD Present 1206 an stop data 1212 An Stop Electronically s igned by Ruddy Hess on December 09, 2018 12:12 P M Name Total midazolam 1mg/mL 2 mg fentaNYL (SUBLIMAZE) injection 100 mcg propofol (DIPRIVAN) injection 10 mg/mL vial 200 mg lidocaine 1% 50 mg glycopyrrolate 0.2 mg/mL 0.8 mg neostigmine 1mg/mL 2 mg rocuronium 10mg/mL 35 mg dexamethasone 4 mg/mL 4 mg ondansetron 2 mg/mL 4 mg ketamine (KETALAR) inj 10 mg/mL 50 mg ePHEDrine 5 mg/mL 25 mg phenylephrine (CHER-SYNEPHRINE) injection 1,800 mcg bupivacaine 0.5% with EPINEPHrine 1:200,000 30 mL ceFAZolin (ANCEF) intermittent infusion 2 g in 100 mL dextrose PRE-MIX 2 g lactated ringers infusion 1,700 mL Agents Name NO HELIOX O2 N2O Air Exp Sevoflurane Exp Isoflurane Exp Desflurane Exp N2O Ins Sevoflurane Ins Isoflurane Ins Desflurane O2 Auxiliary Blood No blood administrations on file. Lines, Drains, and Airways Type Details Placement Removal Incision/Surgical Site 12/09/18; 1138; Left; 12/09/18 1138 by Shoulder Radha Guardado RN Peripheral IV 12/09/18; 0914; 22 G; 12/09/18 0914 by 12/09/18 1540 by Right; Hand Jerod Gong Edeker, Lor elei M, MD RN RETIRED ETT 12/09/18; 1004; Mask 12/09/18 1004 by 12/09/18 1 205 by Ventilation: Easy with Ruddy Hess APRN Thye n, Michael oral airway; Ease of WIND FIELD MANAGER MJ VÁZQUEZ Intubation: Easy; Airway Size: 8; Cuffed; Oral; Blade Type: Patel; Blade Size: 2; Place by: mdt; Insertion Attempts: 1; Secured at (cm)to lip: 24 cm; Breath Sounds: Equal, clear and bilateral; End Tidal CO2: Present; Dentition: Intact; Grade View of Cords: 1 documented in this encounter Social History Tobacco Use Types Packs/Day Years [...] on file documented as of this encounter OR Notes Anesthesia Postprocedure Evaluation - Jerod Gong MD - 12/09/2018 1:04 PM CDT Patient: [facility] Procedure(s): Left shoulder open rotator cuff repair with distal clavicle excision, Acromioplasty left shoulder distal clavicle excision Diagnosis:Left torn rotator cuff Diagnosis Additional Information: Left torn rotator cuff Anesthesia Type: General, ETT, Peripheral Nerve Block for post-op pain at surgeon's request Note: Anesthesia Post Evaluation Patient location during evaluation: PACU Patient participation: Able to participate in evaluation but full recovery from regional anesthesia has not yet ocurrred but is anticipated to occur within 48 hours Level of consciousness: awake Pain management: adequate Airway patency: patent Cardiovascular status: acceptable Respiratory status: acceptable Hydration status: acceptable PONV: controlled Anesthetic complications: None Last vitals: Vitals: 12/09/18 1250 12/09/18 1255 12/09/18 1300 BP: 115/82 100/68 108/65 Pulse: 88 60 81 Resp: 20 13 15 Temp: SpO2: 95% 92% 96% Electronically Signed By: Jerod Gong MD December 09, 2018 1:04 PM Anesthesia Procedure Notes - Jerod Gong MD - 12/09/2018 9:47 AM CDT Associated Order(s): Peripheral/Paravertebral Block Peripheral nerve/Neuraxial procedure note : Brachial plexus (ISB) Pre-Procedure Performed by Jerod Gong MD Referred by EFRAIN Location: pre-op Procedure Times:12/09/2018 9:36 AM and 12/09/2018 9:45 AM Pre-Anesthestic Checklist: patient identified, IV checked, site marked, risks and benefits discussed, informed consent, monitors and equipment checked, pre-op evaluation, at physician/surgeon's requestand post-op pain management Timeout Correct Patient: Yes Correct Procedure: Yes Correct Site: Yes Correct Laterality: Yes Correct Position: Yes Site Marked: Yes . Procedure Documentation . Procedure: left Brachial plexus (ISB). Ultrasound used to identify targeted nerve, plexus, or vascular marker and placed a needle adjacentto it., Ultrasound was used to visualize the spread of the anesthetic in close proximity to the above stated nerve. Patient Prep;mask, sterile gloves, povidone-iodine 7.5% surgical scrub. Nerve Stim: Initial Level 0.56 mA. Lowest motor response mA.. Needle: insulated Needle Gauge: 22. Needle Length (Inches) 2 Insertion Method: Single Shot (incrementally). Assessment/Narrative Paresthesias: No. . The placement was negative for: blood aspirated, painful injection and site bleeding. Bolus given via.. Secured via. Complications: none. Comments: The surgeon has given a verbal order transferring care of this patient to me for the performance of a regional analgesia block for post-op pain control. It is requested of me because I am uniquely trained and qualified to perform this block and the surgeon is neither trained nor qualified to perform this procedure. Anesthesia Preprocedure Evaluation - Jerod Gong MD - 12/09/2018 9:05 AM CDT Anesthesia Pre-Procedure Evaluation Patient: Ruddy Calhoun : 1945 Preoperative Diagnosis: Left torn rotator cuff Procedure(s): Left shoulder open rotator cuff repair with distal clavicle excision left shoulder distal clavicle excision Past Medical History: Diagnosis Date ??? Arthritis ??? HTN (hypertension) ??? Sleep apnea Past Surgical History: Procedure Laterality Date ??? COLON SURGERY Anesthesia Evaluation . Pt has had prior anesthetic. Type: General No history of anesthetic complications ROS/MED HX ENT/Pulmonary: (+)sleep apnea, tobacco use, Past use uses CPAP , . . (-) asthma, COPD and recent URI Neurologic: - neg neurologic ROS (-) seizures and CVA Cardiovascular: (+) Dyslipidemia, hypertension----. : . . . :. . Previous cardiac testing date:results:date: results:ECG reviewed date:12/01 results:NSR date: results: (-) CAD, arrhythmias and valvular problems/murmurs METS/Exercise Tolerance: Hematologic: Comments: Lab Test 12/04/18 11/27/17 05/12/17 1122 1040 1015 WBC 10.4 10.5 8.7 HGB 15.2 15.4 14.5 MCV 94 94 91 PLT 222 199 215 Lab Test 12/04/18 11/27/17 05/12/17 1122 1040 1015 NA 140 140 142 POTASSIUM 3.8 3.5 3.7 CHLORIDE 101 104 104 CO2 33* 32 32 BUN 19 17 18 CR 1.23 1.06 1.22 ANIONGAP 6 4 6 PIPO 9.5 9.1 8.8 GLC 98 99 88 - neg hematologic ROS Musculoskeletal: (+) arthritis, , , other musculoskeletal- gout GI/Hepatic: - neg GI/hepatic ROS (-) GERD Renal/Genitourinary: - ROS Renal section negative Endo: (+) Obesity, . (-) Type I DM, Type II DM, thyroid disease and chronic steroid usage Psychiatric: - neg psychiatric ROS Infectious Disease: - neg infectious disease ROS Malignancy: - no malignancy Other: - neg other ROS Physical Exam Normal systems: cardiovascular, pulmonary and dental Airway Mallampati: II TM distance: >3 FB Neck ROM: full Dental Cardiovascular Rhythm and rate: regular and normal (-) no friction rub, no systolic click and no murmur Pulmonary breath sounds clear to auscultation(-) no rhonchi, no decreased breath sounds, no wheezes, no ralesand no stridor Lab Results Component Value Date WBC 10.4 12/04/2018 HGB 15.2 12/04/2018 HCT 46.7 12/04/2018 PLT 222 12/04/2018 NA 140 12/04/2018 POTASSIUM 3.8 12/04/2018 CHLORIDE 101 12/04/2018 CO2 33 (H) 12/04/2018 BUN 19 12/04/2018 CR 1.23 12/04/2018 GLC 98 12/04/2018 PIPO 9.5 12/04/2018 ALBUMIN 3.5 11/27/2017 PROTTOTAL 7.2 11/27/2017 ALT 58 11/27/2017 AST 31 11/27/2017 ALKPHOS 68 11/27/2017 BILITOTAL 0.6 11/27/2017 TSH 2.10 11/27/2017 Preop Vitals BP Readings from Last 3 Encounters: 12/09/18 137/87 12/04/18 119/80 11/24/18 113/80 Pulse Readings from Last 3 Encounters: 12/04/18 80 11/24/18 90 03/12/18 98 Resp Readings from Last 3 Encounters: 12/09/18 12 11/24/18 12 11/27/17 18 SpO2 Readings from Last 3 Encounters: 12/09/18 95% 12/04/18 96% 11/24/18 97% Temp Readings from Last 1 Encounters: 12/09/18 100 ??F (37.8 ??C) (Temporal) Ht Readings from Last 1 Encounters: 11/24/18 1.702 m (5' 7) Wt Readings from Last 1 Encounters: 12/04/18 108 kg (238 lb) Estimated body mass index is 37.28 kg/m?? as calculated from the following: Height as of 11/24/18: 1.702 m (5' 7). Weight as of 12/04/18: 108 kg (238 lb). Anesthesia Plan History & Physical Review History and physical reviewed and following examination; no interval change. ASA Status: 2 . NPO Status: > 8 hours Plan for General, ETT and Periph. Nerve Block for postop pain with Intravenous induction. Maintenance will be Balanced. PONV prophylaxis: Ondansetron (or other 5HT-3) and Dexamethasone or Solumedrol Postoperative Care Postoperative pain management: IV analgesics. Consents Anesthetic plan, risks, benefits and alternatives discussed with: Patient or retail wireless sales representative, Patientand Spouse.. Jerod Gong MD . documented in this encounter Miscellaneous Notes Anesthesia Care Transfer Note - Ruddy Hess APRN WIND FIELD MANAGER - 12/09/2018 12:12 PM CDT Patient: Ruddy Calhoun Procedure(s): Left shoulder open rotator cuff repair with distal clavicle excision, Acromioplasty left shoulder distal clavicle excision Diagnosis: Left torn rotator cuff Diagnosis Additional Information: No value filed. Anesthesia Type: General, ETT, Periph. Nerve Block for postop pain Note: Airway :Face Mask Patient transferred to:PACU Handoff Report: Identifed the Patient, Identified the Reponsible Provider, Reviewed the pertinent medical history, Discussed the surgical course, Reviewed Intra-OP anesthesia mangement and issues during anesthesia, Set expectations for post-procedure period and Allowed opportunity for questions and acknowledgement of understanding Vitals: (Last set prior to Anesthesia Care Transfer) KATHIE VITALS 12/09/2018 1136 - 12/09/2018 1212 12/09/2018 Pulse: 106 SpO2: 91 % Resp Rate (observed): 18 Electronically Signed By: Ruddy Hess APRN CRNA December 09, 2018 12:12 PM documented in this encounter Plan of Treatment Not on filedocumented as of this encounter Procedures Procedure Name Priority Date/Time Associated Diagnosis Comme nts ANE Routine 12/09/2018 9:47 AM CDT PERIPHERAL/PARAVETEBRAL BLOCK Procedure Note - Jerod Gong MD - 12/09/2018 9:47 AM CDTThis note is in progress. Formatting of this note migh t be different from the original. Peripheral nerve/Neuraxial p rocedure note : Brachial plexus (ISB) Pre-Procedure Performed by Jerod Gong MD Referred by EFRAIN Location: pre-op Procedure Times:12/09/2018 9: 36 AM and 12/09/2018 9:45 AM Pre-Anesthestic Checklist: p atient identified, IV checked, site marked, risks and benefits discussed, informed consent, monitors and equipment checked, pre-op evaluation, at physician/surgeon's request and post-op pain management Timeout Correct Patient: Yes Correct Procedure: Yes Correct Site: Yes Correct Laterality: Yes Correct Position: Yes Site Marked: Yes . Procedure Documentation . Procedure: left Brachial ple xus (ISB). Ultrasound used to identify targeted nerve, plexus, or vascular marker and placed a needle adjacent to it., Ultrasound was used to visualize the spread of the anesthetic in close proximity to the above stated nerve. Patient Prep;mask, sterile g loves, povidone-iodine 7.5% surgical scrub. Nerve Stim: Initial Level 0.56 mA. Lowest motor response mA.. Needle: insulated Needle Gauge: 22. Needle Length (Inches) 2 Insertion Method: Single Shot (incrementally). Assessment/Narrative Paresthesias: No. . The plac ement was negative for: blood aspirated, painful injection and site bleeding. Bolus given via.. Secured via. Complications: none. Comment s: The surgeon has given a verbal order transferring care of this patient to me for the performance of a regional analgesia block for post-op pain control. It is requested of me because I am uniquely trained and qual ified to perform this block and the surgeon is neither trained nor qualified to perform this procedure. documented in this encounter Visit Diagnoses Not on filedocumented in this encounter Administered Medications Inactive Administered Medications - up to 3 most recent administrations Medication Order MAR Action Action Date Dose Rate Site bupivacaine 0.5 % - EPINEPHrine Given 12/09/2018 9:45 AM CDT 30 mLs 1:200,000 injection PRN, Starting on Fri12/09/18 at 0945, Anesthesia Intra-op ceFAZolin (ANCEF) intermittent infusion 2 g in Given 019 9:56 AM CDT 2 g 100 mL dextrose PRE-MIX Routine, 2 g, Intravenous, PRE-OP/PRE-PROCEDURE, Starting on Fri12/09/18 at 0845, For 1 dose, Give first dose within 1 hour PRIOR to incision. If patient weight is greater than or equal to 120 kg increase dose to 3 g., Indications: Perioperative Pharmacoprophylaxis, Pre-procedure dexamethasone (DECADRON) injection Given 12/09/2018 10:00 AM CDT 4 mg Intravenous, PRN, Administer over 1 Minutes, Starting on Fri12/09/18 at 1000, Anesthesia Intra-op ePHEDrine injection Given 12/09/2018 11:28 AM CDT 10 mg PRN, Starting on Fri12/09/18 at 1114, Anesthesia Intra-op Given 12/09/2018 11:17 AM CDT 10 mg Given 12/09/2018 11:14 AM CDT 5 mg fentaNYL (PF) (SUBLIMAZE) injection Given 12/09/2018 10:00 AM CDT 100 mcg PRN, Administer over 3-5 Minutes, Starting on Fri12/09/18 at 1000, Anesthesia Intra-op glycopyrrolate (ROBINUL) injection Given 12/09/2018 11:53 AM CDT 0.4 mg Intravenous, PRN, Administer over 1-2 Minutes, Starting on Fri12/09/18 at 1000, Anesthesia Intra-op Given 12/09/2018 11:37 AM CDT 0.2 mg Given 12/09/2018 10:00 AM CDT 0.2 mg ketamine (KETALAR) injection Given 12/09/2018 10:05 AM CDT 50 mg Intravenous, PRN, Administer over 2-5 Minutes, Starting on Fri12/09/18 at 1005, Anesthesia Intra-op lactated ringers infusion New Bag 12/09/2018 10:49 AM CDT at 25 mL/hr, Intravenous, CONTINUOUS, IF patient NOT on dialysis., Pre-procedure, Starting on Fri12/09/18 at 0900, Until Fri12/09/18 at 1208 New Bag 12/09/2018 9:03 AM CDT lidocaine 1 % injection Given 12/09/2018 10:00 AM CDT 50 mg Intravenous, PRN, Starting on Fri12/09/18 at 1000, Anesthesia Intra-op midazolam (VERSED) injection Given 12/09/2018 9:36 AM CDT 2 mg Administer over 2 Minutes, PRN, Starting on Fri12/09/18 at 0936, Anesthesia Intra-op neostigmine (PROSTIGMINE) injection Given 12/09/2018 11:53 AM CDT 2 mg Intravenous, PRN, Starting on Fri12/09/18 at 1153, Anesthesia Intra-op ondansetron (ZOFRAN) injection Given 12/09/2018 10:00 AM CDT 4 mg Intravenous, PRN, Administer over 2-5 Minutes, Starting on Fri12/09/18 at 1000, Anesthesia Intra-op phenylephrine (CHER-SYNEPHRINE) injection Bolus 12/09/2018 11:35 AM CDT 100 mcg Intravenous, CONTINUOUS PRN, Starting on Fri12/09/18 at 1008, Anesthesia Intra-op Bolus 12/09/2018 11:21 AM CDT 100 mcg Bolus 12/09/2018 11:06 AM CDT 200 mcg propofol (DIPRIVAN) injection 10 mg/mL v ial Given 12/09/2018 10:00 AM CDT 200 mg PRN, Starting on Fri12/09/18 at 1000, Anesthesia Intra-op rocuronium (ZEMURON) injection Given 12/09/2018 10:00 AM CDT 35 mg PRN, Starting on Fri12/09/18 at 1000, Anesthesia Intra-op documented in this encounter Care Teams Broom Stitcher Relationship Specialty Start Date End Date Juan José Michelle MD PCP - General Internal Medicine 05/08/15 01/09/21 Juan José Michelle MD Assigned PCP 07/26/16 12/30/20 [address] [place] [phone] documented as of this encounter
--- OUTSIDE RECORDS SUMMARY | 2022-06-20 14:11 | XMS_ITS | Encounter Summary ---
:1945 Author Organization [facility] Address [address] [place] [address] Care Team Providers Name Role Phone Juan José Michelle MD Primary Care Provider Juan José Michelle MD Unavailable Reason for Visit Reason Comments Sleep Problem Need supplies (Routine) - Closed Specialty Diagnoses / Procedures Referred By Contact Refer red To Contact Physician Manager Drilling / Diagnoses sleep apnea, requesting new equipment, unknown last ss, last OV 09/29/15, will bring machine, [facility] Sleep, dx Adonis Grullon, Sleep Medicine Procedures NEW REFERRED OUTSIDE [place] [facility] [address] [facility] [address] [place] [address] Phone: Fax: Referral ID Status Reason Start Date Expiration Date Visits Requ ested Visits Authorized [id number] Closed 02/26/2019 02/26/2020 1 1 Encounter Details Date Type Department Care Team Description 04/05/[address] [facility] Adonis Grullon DIANNE (obs [facility] sleep [facility] Angy Herbert, JC apnea) (Primary Dx) [address] [facility] [address] [facility] [address] [place] [address] [place] [id number] Social History Tobacco Use [...] Sign Reading Time Taken Comments Blood Pressure 133/89 04/05/2019 12:57 PM CDT Pulse 82 04/05/2019 12:57 PM CDT Temperature - - Respiratory Rate 16 04/05/2019 12:57 PM CDT Oxygen Saturation 97% 04/05/2019 12:57 PM CDT Inhaled Oxygen Concentration - - Weight 107 kg (236 lb) 04/05/2019 12:57 PM CDT Height 167.6 cm (5' 6) 04/05/2019 12:57 PM CDT Body Mass Index 38.09 04/05/2019 12:57 PM CDT documented in this encounter Patient Instructions Patient InstructionsPadmini Lyon MA - 04/05/2019 1:00 PM CDT Your BMI is Body mass index is 38.09 kg/m??. Weight management is a personal decision. If you are interested in exploring weight loss strategies,the following discussion covers the approaches that may be successful. Body mass index (BMI) is one way to tell whether you are at a healthy weight, overweight, or obese. It measures your weight in relation to your height. A BMI of 18.5 to 24.9 is in the healthy range. A person with a BMI of 25 to 29.9 is considered overweight, and someone with a BMI of 30 or greater is considered obese. More than two-thirds of [place] adults are considered overweight or obese. Being overweight or obese increases the risk for further weight gain. Excess weight may lead to heart disease and diabetes. Creating and following plans for healthy eating and physical activity may help you improve your health. Weight control is part of healthy lifestyle and includes exercise, emotional health, and healthy eating habits. Careful eating habits lifelong are the mainstay of weight control. Though there are significant health benefits from weight loss, long-term weight loss with diet alone may be very difficult to achieve- studies show long-term success with dietary management in less than 10% of people. Attaining a healthy weight may be especially difficult to achieve in those with severe obesity. In some cases, medications, devices and surgical management might be considered. What can you do? If you are overweight or obese and are interested in methods for weight loss, you should discuss this with your provider. ??? Consider reducing daily calorie intake by 500 calories. ??? Keep a food journal. ??? Avoiding skipping meals, consider cutting portions instead. Diet combined with exercise helps maintain muscle while optimizing fat loss. Strength training is particularly important for building and maintaining muscle mass. Exercise helps reduce stress, increaseenergy, and improves fitness. Increasing exercise without diet control, however, may not burn enoughcalories to loose weight. ??? Start walking three days a week 10-20 minutes at a time ??? Work towards walking thirty minutes five days a week ??? Eventually, increase the speed of your walking for 1-2 minutes at time In addition, we recommend that you review healthy lifestyles and methods for weight loss available through the National Institutes of Health patient information sites: http://win.niddk.nih.gov/publications/index.htm And look into health and wellness programs that may be available through your health insurance provider, employer, local community center, or alex club. Weight management plan: Patient was referred to their PCP to discuss a diet and exercise plan. documented in this encounter Progress Notes Adonis Grullon PA-C - 04/05/2019 1:00 PM CDT Sleep Consultation: Date on this visit: 04/05/2019 Ruddy Calhoun is sent by [facility] for a sleep consultation regarding DIANNE. Primary Physician: Juan José Michelle Ruddy Calhoun presents to get a new CPAP mask for previously diagnosed DIANNE. His medical history is significant for HTN, gout, obesity, hyperlipidemia. His main symptoms were loud snoring and observed apneas. Diagnostic home study showed: AHI: 56.2/hr TRE: 47.2/hr Supine AHI: 49.7/hr Lateral AHI: 52.9/hr on left and 59/hr on right Average SpO2: 88% Lowest Desaturation: 64%. Time Spent Below 89%: 198.3 minutes. He is on auto CPAP 11-15 cm. He says he loves his machine. He stepped on his mask and broke a connector piece to his mask. He does not snore with CPAP. Sometimes he is observed to not snore even without the mask. He uses a Simplus full face mask. He does get a dry mouth sometimes. He usually does not notice mask leak. He is comfortable with the pressures. He denies waking with headaches. He has not gotten new supplies in years. His filter was very dirty. The compliance data shows that he has used the CPAP for 30/30 nights, 97% of nights for >4 hours.The 95th% pressure is 12.8 cm. The 95th% leak is 12.4 lpm. The average nightly usage is 7:02, median7:28. The average AHI is 0.8/hr. Ruddy goes to sleep at 11:00-11:30 PM during the week. He wakes up at 7:00 AM without an alarm. Hefalls asleep in 10 minutes. Ruddy denies difficulty falling asleep. He wakes up 1-2 times a night for 10-30 minutes before falling back to sleep. Ruddy wakes up to go to the bathroom. On weekends, his sleep is the same. Patient gets an average of 8 hours of sleep per night. Patient does not use electronics in bed, watch TV in bed, worry in bed about anything and read in bed. Ruddy does not do shift work. He works day shifts. 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 He lives with his . Ruddy does have a regular bed partner. They never sleep separately due to his snoring. Patient sleeps on his side. He has no restless legs. Ruddy denies any bruxism, sleep walking, sleep talking, dream enactment, sleep paralysis, cataplexy and hypnogogic/hypnopompic hallucinations. Ruddy denies difficulty breathing through his nose, claustrophobia, reflux at night, heartburn anddepression. Ruddy has lost 5-10 pounds in the last 3 years. Patient describes themself as a morning person. Hewould prefer to go to sleep at 11:00 PM and wake up at 7:00 AM. Patient's Brokaw Sleepiness score 03/08 inconsistent with daytime sleepiness. He says his energy could be better. He does not get as muchexercise as he should which he says is hampered by flat feet. Ruddy naps 2 times per week for 20-30 minutes, feels refreshed after naps. He will use CPAP sometimes. He takes infrequent inadvertant naps while reading or watching TV late at night. He denies dozing while driving. He avoids driving late at night. 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 He uses 0-1 cups/day of coffee. Last caffeine intake is usually before noon. Allergies: No Known Allergies Medications: Current Outpatient Medications Medication Sig Dispense Refill ??? allopurinol (ZYLOPRIM) 300 MG tablet TAKE 1 TABLET BY MOUTH EVERY DAY 90 tablet 1 ??? brimonidine-timolol (COMBIGAN) 0.2-0.5 % ophthalmic solution 1 drop ??? dorzolamide-timolol (COSOPT) 2-0.5 % ophthalmic solution INSTILL 1 DROP INTO BOTH EYES TWICE DAILY 2 ??? lisinopril-hydrochlorothiazide (PRINZIDE/ZESTORETIC) 20-25 MG per tablet TAKE 1 TABLET BY MOUTH DAILY 90 tablet 1 ??? finasteride (PROSCAR) 5 MG tablet Take 1 tablet (5 mg) by mouth daily 90 tablet 3 ??? order for DME Equipment being ordered: CPAP Patient Ruddy Calhoun was set up at [facility] on May 25, 2015. Patient received a [...] BY MOUTH EVERY DAY 90 capsule 0 Problem List: Patient Active Problem List Diagnosis [...] review ??? Essential hypertension 05/08/2015 Priority: Medium Past Medical/Surgical History: Past Medical History: Diagnosis Date ??? Arthritis [...] Ammy Gallardo MD; Location: [facility] OR Social History: Social History Socioeconomic History ??? Marital status: Spouse name: Not on file ??? Number of children: Not on file ??? Years of education: Not on file ??? Highest education level: Not on file Occupational History ??? Not on file Social Needs ??? Financial resource strain: Not on file ??? Food insecurity: Worry: Not on file Inability: Not on file ??? Transportation needs: Medical: Not on file Non-medical: Not on file Tobacco Use ??? Smoking status: Never Smoker ??? Smokeless tobacco: Never Used Substance and Sexual Activity ??? Alcohol use: No Alcohol/week: 0.0 oz Comment: not for about 35 years (as of 2014) ??? Drug use: No ??? Sexual activity: Never Partners: Female Lifestyle ??? Physical activity: Days per week: Not on file Minutes per session: Not on file ??? Stress: Not on file Relationships ??? Social connections: Talks on phone: Not on file Gets together: Not on file Attends gnosticist service: Not on file Active member of club or organization: Not on file Attends meetings of clubs or organizations: Not on file Relationship status: Not on file ??? Intimate partner violence: Fear of current or ex partner: Not on file Emotionally abused: Not on file Physically abused: Not on file Forced sexual activity: Not on file Other Topics Concern ??? Parent/sibling w/ CABG, CA or angioplasty before 65F 55M? Not Asked Social History Narrative ??? Not on file Family History: Family History Problem Relation Age of Onset ??? Cerebrovascular Disease Mother ??? Diabetes Sister Review of Systems: A complete review of systems reviewed by me is negative with the exeption of what has been mentionedin the history of present illness. CONSTITUTIONAL: NEGATIVE for weight gain/loss, fever, chills, sweats or night sweats, drug allergies. EYES: NEGATIVE for changes in vision, blind spots, double vision. EYES: POSITIVE for glaucoma ENT: NEGATIVE for ear pain, sore throat, sinus pain, post-nasal drip, runny nose, bloody nose CARDIAC: NEGATIVE for fast heartbeats or fluttering in chest, chest pain or pressure, breathlessnesswhen lying flat. CARDIAC: POSITIVE for swollen legs, swollen feet and HTN (sometimes) NEUROLOGIC: NEGATIVE headaches, weakness or numbness in the arms or legs. DERMATOLOGIC: NEGATIVE for rashes, new moles or change in mole(s) PULMONARY: NEGATIVE SOB at rest, dry cough, productive cough, coughing up blood, wheezing or whistling when breathing. PULMONARY: POSITIVE for occasional SOB with activity GASTROINTESTINAL: NEGATIVE for nausea or vomitting, loose or watery stools, fat or grease in stools,constipation, abdominal pain, bowel movements black in color or blood noted. GENITOURINARY: NEGATIVE for pain during urination, blood in urine, urinating more frequently than usual, irregular menstrual periods. MUSCULOSKELETAL: NEGATIVE for muscle pain, bone or joint pain, swollen joints. ENDOCRINE: NEGATIVE for increased thirst or urination, diabetes. LYMPHATIC: NEGATIVE for swollen lymph nodes, lumps or bumps in the breasts or nipple discharge. MENTAL HEALTH: POSITIVE for stress Physical Examination: Vitals: BP 133/89 Pulse 82 Resp 16 Ht 1.676 m (5' 6) Wt 107 kg (236 lb) SpO2 97% BMI 38.09 kg/m?? BMI= Body mass index is 38.09 kg/m??. Neck Cir (cm): 44 cm Brokaw Total Score 04/05/2019 Total score - Brokaw 6 CORY Total Score: 3 (04/05/19 1305) GENERAL APPEARANCE: healthy, alert, no distress and cooperative EYES: Eyes grossly normal to inspection, PERRL, conjunctivae and sclerae normal and lids and lashes normal HENT: nose and mouth without ulcers or lesions, oropharynx crowded, soft palate dependent and teeth show signs of wear NECK: no adenopathy, no asymmetry, masses, or scars, thyroid normal to palpation and trachea midlineand normal to palpation RESP: lungs clear to auscultation - no rales, rhonchi or wheezes CV: regular rates and rhythm, normal S1 S2, no S3 or S4, no murmur, click or rub and no irregular beats LYMPHATICS: no cervical adenopathy MS: extremities normal- no gross deformities noted and trace pitting at ankles NEURO: Normal strength and tone, mentation intact, speech normal and cranial nerves 2-12 intact Mallampati Class: IV. Tonsillar Stage: 1 hidden by pillars. Impression/Plan: (G47.33) DIANNE (obstructive sleep apnea) (primary encounter diagnosis) Comment: Mr. Calhoun had a diagnostic HST here in 2014 that showed an AHI of 56/hr with 198 minutes below 89%. He then had a CPAP titration study and CPAP 11 cm was effective in lateral positions. He was not seen in REM supine. He presents today to get a prescription for new supplies. He has not been seen in 3 years. He stepped on the connector piece to his hose and broke a small piece off of it. He hasnot gotten new supplies or changed his filter in years. His download shows his apnea is very well treated. His pressure is often near the lower limit. He gets some dry mouth, although the download shows his mask is fitting very well. His humidifier was on manual at a setting of 4. He has lost almost 10 pounds in the last year. Plan: Comprehensive DME Continue auto CPAP 11-15 cm. A prescription was written for new supplies. We reviewed recommendations for cleaning and replacing supplies. We reviewed how to adjust the humidifier. He would be due fora new machine in a year if his machine starts to fail. He will follow up with me 1 year. Polysomnography reviewed. Obstructive sleep apnea reviewed. Complications of untreated sleep apnea were reviewed. 45 minutes was spent during this visit, over 50% in counseling and coordination of care. Adonis Grullon PA-C CC: Referred Self documented in this encounter Nursing Notes Padmini Lyon MA - 04/05/2019 1:00 PM CDT Chief Complaint Patient presents with ??? Sleep Problem Need supplies Initial BP 133/89 Pulse 82 Resp 16 Ht 1.676 m (5' 6) Wt 107 kg (236 lb) SpO2 97% BMI 38.09 kg/m?? Estimated body mass index is 38.09 kg/m?? as calculated from the following: Height as of this encounter: 1.676 m (5' 6). Weight as of this encounter: 107 kg (236 lb). Medication Reconciliation: complete ESS 6 Neck 44cm Padmini Lyon documented in this encounter Plan of Treatment Not on filedocumented as of this encounter Visit Diagnoses Diagnosis DIANNE (obstructive sleep apnea) - Primary Obstructive sleep apnea (adult) (pediatr ic) documented in this encounter Care Teams Public Health Relationship Specialty Start Date End Date Juan José Michelle MD PCP - General Internal Medicine 05/08/15 01/09/21 Juan José Michelle MD Assigned PCP 07/26/16 12/30/20 [address] [facility] [address] [place] [address] [id number] documented as of this encounter
--- OUTSIDE RECORDS SUMMARY | 2022-06-20 14:11 | XMS_ITS | Encounter Summary ---
:1945 Author Organization [facility] Address [facility] [place] [address] Care Team Providers Name Role Phone Juan José Michelle MD Primary Care Provider Juan José Michelle MD Unavailable Encounter Details Date Type Department Care Team Description 02/24/2020 Travel Social History Tobacco Use Types Packs/Day [...] been in contact with No / Unsure 02/24/2020 3:25 PM CDT someone who was confirmed or suspected to have Coronavirus / COVID-19? documented as of this encounter Plan of Treatment Not on filedocumented as of this encounter Visit Diagnoses Not on filedocumented in this encounter Care Teams Can Coverer Relationship Specialty Start Date End Date Juan José Michelle MD PCP - General Internal Medicine 05/08/15 01/09/21 Juan José Michelle MD Assigned PCP 07/26/16 12/30/20 [address] [facility] [address] [place] [address] [phone] documented as of this encounter
--- OUTSIDE RECORDS SUMMARY | 2022-06-20 14:11 | XMS_ITS | Encounter Summary ---
:1945 Author Organization [facility] Address [facility] [place] [address] Care Team Providers Name Role Phone Juan José Michelle MD Primary Care Provider Juan José Michelle MD Unavailable Encounter Details Date Type Department Care Team Description 01/26/2019 Travel Social History Tobacco Use Types Packs/Day [...] on filedocumented in this encounter Care Teams Certified Teacher Assistant Relationship Specialty Start Date End Date Juan José Michelle MD PCP - General Internal Medicine 05/08/15 01/09/21 Juan José Michelle MD Assigned PCP 07/26/16 12/30/20 [address] [place] [phone] documented as of this encounter
--- OUTSIDE RECORDS SUMMARY | 2022-06-20 14:11 | XMS_ITS | Encounter Summary ---
:1945 Author Organization [facility] Address [address] 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 documented as of this encounter Progress Notes Juan José Michelle MD - 02/24/2020 4:00 PM CDT Ruddy Calhoun is a 74 year [...] would you like to be contacted at? [phone] How would you like to obtain your AVS? Mail a copy Subjective Ruddy Calhoun is a 74 year old male who presents via phone visit today for the following health issues: HPI Self-imposed quarantine has reduced his activity complicated by his chronic foot problems. Patient has become more inactive and he is concerned about his weight gain. He is concerned about his opportunity for his yearly physical and when the clinic may be open to reevaluate his condition. Current Outpatient Medications Medication Sig Dispense Refill [...] Patient Ruddy Calhoun was set up at [facility] on May 25, 2015. Patient received a [employer] Airsense 10 Auto. Pressures were set at Auto 5 - 15 cm H2O. Patient???s ramp is 0 cm H2O for Off and FLEX/EPR is A Flex 2. Patient received a [employer] Mask name: Simplus Full Face mask Size Medium, heated tubing and heated humidifier. Patient is enrolled in the STM Program and does need to meet compliance. Patient has a follow up on TBD with LOIS Antonio. AKBARAntionette ADAIRRICK ??? triamterene-HCTZ (DYAZIDE) 37.5-25 MG capsule TAKE 1 CAPSULE BY MOUTH EVERY DAY 90 capsule 3 No Known Allergies Reviewed and updated as needed this visit by Provider Review of Systems Constitutional, HEENT, cardiovascular, pulmonary, gi and gu systems are negative, except as otherwise noted. Objective Reported vitals: There were no vitals taken for this visit. healthy, alert and no distress PSYCH: Alert and oriented times 3; coherent speech, normal rate and volume, able to articulate logical thoughts, able to abstract reason, no tangential thoughts, no hallucinations or delusions His affect is normal RESP: No cough, no audible wheezing, able to talk in full sentences Remainder of exam unable to be completed due to telephone visits Assessment/Plan: 1. Idiopathic chronic gout of multiple sites without tophus No recent exacerbations 2. Morbid obesity (H) He believes that he is ready for a weight loss program associated with activity 3. Benign essential hypertension Well-controlled by report with current medications 4. DIANNE (obstructive sleep apnea) Continue with CPAP 5. Vitamin D deficiency Follow-up with wellness exam No follow-ups on file. 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
--- OUTSIDE RECORDS SUMMARY | 2022-06-20 14:11 | XMS_ITS | Encounter Summary ---
:1945 Author Organization [place] Address [address] 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, [address] Vitamin D deficiency; [place] [address] [place] DI[place] (obstructive sleep apnea ); [phone] [id number] Essential hypertension; [phone] Screening for p rostate cancer; (Work) Screening for hypothyroidism; [phone] Special screeni ng for malignant neoplasms, colon (Fax) Social History Tobacco Use Types Packs/Day Years [...] Sign Reading Time Taken Comments Blood Pressure 122/81 01/26/2019 1:26 PM CDT Pulse 77 01/26/2019 1:26 PM CDT Temperature 36.4 ??C (97.6 ??F) 01/26/2019 1:26 PM CDT Respiratory Rate - - Oxygen Saturation 92% 01/26/2019 1:26 PM CDT Inhaled Oxygen Concentration - - Weight 109.8 kg (242 lb) 01/26/2019 1:26 PM CDT Height 170.2 cm (5' 7) 01/26/2019 1:26 PM CDT Body Mass Index 37.9 01/26/2019 1:26 PM CDT documented in this encounter Progress Notes Juan José Michelle MD - 01/26/2019 1:30 PM CDT SUBJECTIVE: Ruddy Calhoun is a 73 year old male who presents for Preventive Visit. Are you in the first 12 months of your Medicare coverage? No Feet Patient's reports that his feet have been swollen for multiple weeks after his fall accident. Would like them looked at. Skin Patient reports of skin spot on his left shoulder from when he had a shot that never went away. Would like it looked at. Wonders about hair growth medication Propecia Reviewed medications and immunizations HPI Do you feel safe in your environment? Yes Do you have a Health Care Directive? Fall risk Cognitive Screening Reviewed and updated as needed this visit by clinical staff Reviewed and updated as needed this visit by Provider Social History Tobacco Use ??? Smoking status: Never Smoker ??? Smokeless tobacco: Never Used Substance Use Topics ??? Alcohol use: No Alcohol/week: 0.0 oz Comment: not for about 35 years (as of 2014) Alcohol Use 11/05/2016 Prescreen: >3 drinks/day or >7 drinks/week? The patient does not drink >3 drinks per day nor >7 drinks per week. No flowsheet data found. Current providers sharing in care for this patient include: Patient Care Team: Juan José Michelle MD as PCP - General (Internal Medicine) Juan José Michelle MD as Assigned PCP The following health maintenance items are reviewed in Epic and correct as of today: Health Maintenance Topic Date Due ??? HEPATITIS C SCREENING 1964 ??? COLON CANCER SCREEN (SYSTEM ASSIGNED) 1996 ??? ZOSTER IMMUNIZATION (1 of 2) 1996 ??? ADVANCE DIRECTIVE PLANNING Q5 YRS 2001 ??? AORTIC ANEURYSM SCREENING (SYSTEM ASSIGNED) 2011 ??? MEDICARE ANNUAL WELLNESS VISIT 11/27/2018 ??? INFLUENZA VACCINE (Season Ended) 2019 ??? FALL RISK ASSESSMENT 12/05/2019 ??? LIPID SCREEN Q5 YR MALE (SYSTEM ASSIGNED) 11/27/2022 ??? DTAP/TDAP/TD IMMUNIZATION (4 - Td) 09/20/2024 ??? PHQ-2 Completed ??? IPV IMMUNIZATION Aged Out ??? MENINGITIS IMMUNIZATION Aged Out BP Readings from Last 3 Encounters: 01/26/19 122/81 01/13/19 110/70 12/09/18 126/84 Wt Readings from Last 3 Encounters: 01/26/19 109.8 kg (242 lb) 01/13/19 110.2 kg (243 lb) 12/04/18 108 kg (238 lb) Patient Active Problem List Diagnosis ??? Essential [...] DME Equipment being ordered: CPAP Patient Ruddy Port was set up at [facility] on May 25, 2015. Patient received a Axiom Airsense 10 Auto. Pressures were set at Auto 5 - 15 cm H2O. Patient???s ramp is 0 cm H2O for Off and FLEX/EPR is A Flex 2. Patient received a [employer] Mask name: Simplus Full Face mask Size Medium, heated tubing and heated humidifier. Patient is enrolled in the STM Program and does need to meet compliance. Patient has a follow up on TBD with LOIS Antonio. AKBAR CABRERA ??? triamterene-HCTZ (DYAZIDE) 37.5-25 MG capsule TAKE 1 CAPSULE BY MOUTH EVERY DAY 90 capsule 0 No Known Allergies Review of Systems CONSTITUTIONAL: NEGATIVE for fever, chills, change in weight INTEGUMENTARY/SKIN: POSITIVE for worrisome rashes, moles or lesions EYES: NEGATIVE for vision changes or irritation ENT/MOUTH: NEGATIVE for ear, mouth and throat problems RESP: NEGATIVE for significant cough or SOB CV:POSITIVE for peripheral edema GI: NEGATIVE for nausea, abdominal pain, heartburn, or change in bowel habits : NEGATIVE for frequency, dysuria, or hematuria, POSITIVE for nocturia 1-2 nightly MUSCULOSKELETAL: POSITIVE for significant arthralgias or myalgia NEURO: NEGATIVE for weakness, dizziness or paresthesias HEME: NEGATIVE for bleeding problems PSYCHIATRIC: NEGATIVE for changes in mood or affect This document serves as a record of the services and decisions personally performed and made by MD Michelet. It was created on his behalf by Liza Fonseca, a trained medical review specialist. The creation of this document is based on the provider's statements to the medical review specialist. Liza Fonseca January 26, 2019 1:43 PM OBJECTIVE: There were no vitals taken for this visit. Estimated body mass index is 38.06 kg/m?? as calculated from the following: Height as of 01/13/19: 1.702 m (5' 7). Weight as of 01/13/19: 110.2 kg (243 lb). Physical Exam Pleasant morbidly obese white male, nad HENT: ears normal bilaterally, nose and throat clear Neck was supple without adenopathy or thyromegaly his carotids were normal without bruits Chest clear to auscultation and percussion Cardiovascular S1 and S2 are physiologic without murmurs or gallops Abdomen bowel sounds were normal. There is no palpable mass or organomegaly, lichenification below the below the obliquus into the groin : uncircumcised, testicles ar atrophic Rectal: perianal dry excoriated skin, prostate gland 1-2+ and smooth Extremities nontender with 2-3+ pretibial edema bilaterally , without tenderness or accord Pulses pedal pulses are as described otherwise his pulses are bilaterally symmetrical throughout without bruits Skin without significant abnormality except for excessive seborrheic keratosis FEET: flat, bilateral bunions, on the distal right great toe he has a small blister from excessive walking Diagnostic Test Results: No results found for this or any previous visit (from the past 24 hour(s)). ASSESSMENT / PLAN: Ruddy was seen today for wellness visit. Diagnoses and all orders for this visit: Hyperlipidemia LDL goal <130 - Lipid panel reflex to direct LDL Fasting Routine general medical examination at a health care facility - UA reflex to Microscopic and Culture - CBC with platelets - Comprehensive metabolic panel - Lipid panel reflex to direct LDL Fasting - Vitamin D Deficiency - TSH with free T4 reflex - Prostate spec antigen screen - Uric acid - TD PRESERV FREE, IM (7+ YRS) - Fecal colorectal cancer screen (FIT); Future Idiopathic chronic gout of multiple sites without tophus - Uric acid Vitamin D deficiency - Vitamin D Deficiency DIANNE (obstructive sleep apnea) Essential hypertension - UA reflex to Microscopic and Culture - CBC with platelets - Comprehensive metabolic panel Screening for prostate cancer - Prostate spec antigen screen Screening for hypothyroidism - TSH with free T4 reflex Special screening for malignant neoplasms, colon - Fecal colorectal cancer screen (FIT); Future End of Life Planning: Patient currently has an advanced directive: No. I have verified the patient's ablity to prepare an advanced directive/make health care decisions. Literature was provided to assist patient in preparingan advanced directive. COUNSELING: Reviewed preventive health counseling, as reflected in patient instructions New Shingles Vaccination @ pharmacy Estimated body mass index is 38.06 kg/m?? as calculated from the following: Height as of 01/13/19: 1.702 m (5' 7). Weight as of 01/13/19: 110.2 kg (243 lb). reports that he has never smoked. [...] has been established and reviewed with the Patient and spouse. Counseling Resources: ATP IV Guidelines Pooled Cohorts Equation Calculator Breast Cancer Risk Calculator FRAX Risk Assessment ICSI Preventive Guidelines Dietary Guidelines for Americans, 2009 USDA's MyPlate ASA Prophylaxis Lung CA Screening The information in this document, created by the medical review specialist for me, accurately reflects the services I personally performed and the decisions made by me. I have reviewed and approved this document for accuracy prior to leaving the patient care area. January 26, 2019 2:39 PM Juan José Michelle MD [facility] Identified Health Risks: documented in this encounter Plan of Treatment Not on filedocumented as of this encounter Procedures Procedure Name Priority Date/Time Associated Diagnosis Comme nts VITAMIN D DEFICIENCY Routine 01/26/2019 2:35 Routine general R esults for this SCREENING PM CDT medical examination at [facility] are in a health care fa cility the results Vitamin D deficiency section . URIC ACID Routine 01/26/2019 2:35 Idiopathic chronic Result s for this PM CDT gout of multiple sites [facility] are in without tophus the results Routine general section. medical examination at a health care facility TSH WITH FREE T4 Routine 01/26/2019 2:35 Routine general Resul ts for this REFLEX PM CDT medical examination at [facility] are in a health care fa cility the results Screening for section. hypothyroidism PROSTATE SPECIFIC Routine 01/26/2019 2:35 Routine general Resu lts for this ANTIGEN SCREEN PM CDT medical examination at [facility] are in a health care fa cility the results Screening for prostate secti on. cancer LIPID REFLEX TO Routine 01/26/2019 2:35 Routine general Result s for this DIRECT LDL PANEL PM CDT medical examination at [facility] are in a health care fa cility the results Hyperlipidemia LDL section. goal <130 COMPREHENSIVE Routine 01/26/2019 2:35 Routine general Results for this METABOLIC PANEL PM CDT medical examination at [facility] are in a health care fa cility the results Essential hypertension secti on. CBC WITH PLATELETS Routine 01/26/2019 2:35 Routine general Res ults for this PM CDT medical examination at [facility] are in a health care fa cility the results Essential hypertension secti on. UA MACROSCOPIC WITH Routine 01/26/2019 2:34 Routine general Re sults for this REFLEX TO MICROSCOPIC PM CDT medical examination at [facility] are in AND CULTURE a health care fa cility the results Essential hypertension secti on. documented in this encounter Results Fecal colorectal cancer screen (FIT) (02/01/2019 9:53 AM CDT) Analysis Performed At Patho logist Time Signature Occult Blood Negative NEG^Negati 02/07/2019 [facility] FIT ve 10:37 AM CDT [facility] Specimen Anatomical Collection Method Collection Time Receive d Time (Source) Location / / Volume Laterality Stool specimen 02/01/2019 9:53 AM 019 9:58 (specimen) CDT AM CDT Juan José Michelle MD LAB - STOOLS ORDERABLES Performing Organization Address City/State/ZIP Code Phon e Number [facility] [address] [place] [address] [facility] Uric acid (01/26/2019 2:35 PM CDT) athologist Signature Uric Acid 4.9 3.5 - 7.2 01/27/2019 [facility] mg/dL 2:48 PM CDT [facility] Specimen Anatomical Collection Method Collection Time Receive d Time (Source) Location / / Volume Laterality Blood specimen 01/26/2019 2:35 PM 019 2:36 (specimen) CDT PM CDT Juan José Michelle MD LAB - BLOOD ORDERABLES Performing Organization Address City/State/ZIP Code Phon e Number [facility] [address] [place] [address] Prostate spec antigen screen (01/26/2019 2:35 PM CDT) athologist Signature PSA 1.00 0 - 4 ug/L 01/27/2019 [place] 2:44 PM CDT [facility] Comment: Assay Method: Chemiluminescence using Siemens [place] analyzer Specimen Anatomical Collection Method Collection Time Receive d Time (Source) Location / / Volume Laterality Blood specimen 01/26/2019 2:35 PM 019 2:36 (specimen) CDT PM CDT Juan José Michelle MD LAB - BLOOD ORDERABLES Performing Organization Address City/[facility]/ZIP Code Phon e Number [facility] [address] [address] [phone] [facility] [address] [address], [place] [phone] TSH with free T4 reflex (01/26/2019 2:35 PM CDT) athologist Signature TSH 1.50 0.40 - 4.00 01/27/2019 [facility] mU/L 2:48 PM CDT [facility] Specimen Anatomical Collection Method Collection Time Receive d Time (Source) Location / / Volume Laterality Blood specimen 01/26/2019 2:35 PM 019 2:36 (specimen) CDT PM CDT Juan José Michelle MD LAB - BLOOD ORDERABLES Performing Organization Address City/State/ZIP Code Phon e Number [facility] [address] [place] [address] Vitamin D Deficiency (01/26/2019 2:35 PM CDT) P athologist Signature Vitamin D 63 20 - 75 01/27/2019 [facility] ug/L 1:51 PM CDT [facility] Comment: Season, race, dietary intake, and treatm ent affect the concentration of 61-vobfgwa-Zqpkmnw D. Values may decreas e during winter [...] Location / / Volume Laterality Blood specimen 01/26/2019 2:35 PM 019 2:36 (specimen) CDT PM CDT Juan José Michelle MD LAB - BLOOD ORDERABLES Performing Organization Address City/State/ZIP Code Phon e Number [facility] [address] [place] [address] [facility] Lipid panel reflex to direct LDL Fasting (01/26/2019 2:35 PM CDT) Patholo gist Method Time Signature Cholesterol 154 <200 01/27/2019 [facility] mg/dL 2:48 PM CDT [facility][1] Triglycerides 72 <150 01/27/2019 [facility] mg/dL 2:48 PM CDT [facility][1] HDL Cholesterol 57 >39 mg/dL 01/27/2019 [facility] 2:48 PM CDT [facility][1] LDL Cholesterol 83 <100 01/27/2019 [place] Calculated mg/dL 2:48 PM CDT [facility][1] Comment: Desirable: <100 mg/dl Non HDL Cholesterol 97 <130 mg/dL 01/27/2019 2:48 PM CDT [facility] Specimen Anatomical Collection Method Collection Time Receive d Time (Source) Location / / Volume Laterality Blood specimen 01/26/2019 2:35 PM 019 2:36 (specimen) CDT PM CDT Juan José Michelle MD LAB - BLOOD ORDERABLES Performing Organization Address City/State/ZIP Code Phon e Number [facility] [address] [place] [address] Comprehensive metabolic panel (01/26/2019 2:35 PM CDT) athologist Signature Sodium 140 133 - 144 01/27/2019 [place] mmol/L 2:17 PM CDT [facility] Potassium 3.9 3.4 - 5.3 01/27/2019 [place] mmol/L 2:17 PM CDT [facility][1] Chloride 103 94 - 109 01/27/2019 [place] mmol/L 2:17 PM CDT [facility][1] Carbon Dioxide 31 20 - 32 01/27/2019 [place] mmol/L 2:28 PM CDT [facility] Anion Gap 6 3 - 14 01/27/2019 [place] mmol/L 2:28 PM CDT [facility] Glucose 91 70 - 99 01/27/2019 [place] mg/dL 2:28 PM CDT [facility] Urea Nitrogen 17 7 - 30 01/27/2019 [place] mg/dL 2:28 PM CDT [facility][1] Creatinine 1.12 0.66 - 01/27/2019 [place] 1.25 mg/dL 2:28 PM CDT [facility] GFR Estimate 65 >60 01/27/2019 [place] mL/min/{1. 2:28 PM CDT CLINICS 73_m2} [facility] Comment: Non GFR Calc Starting 09/01/2018, serum creatinine ba sed estimated GFR (eGFR) will be calculated using the Chronic Kidney Dise ase Epidemiology Collaboration (CKD-EPI) equation. GFR Estimate If 76 >60 mL/min/{1.73_m2} 01/27/2019 2: 28 PM [facility] Black T [facility] Comment: GFR Calc Starting 09/01/2018, serum creatinine ba sed estimated GFR (eGFR) will be calculated using the Chronic Kidney Dise ase Epidemiology Collaboration (CKD-EPI) equation. Calcium 8.5 8.5 - 10.1 01/27/2019 2:28 PM [facility] mg/dL T [facility] Bilirubin Total 0.7 0.2 - 1.3 mg/dL 01/27/2019 2:48 PM [facility] Albumin 3.6 3.4 - 5.0 g/dL 01/27/2019 2:48 PM [facility] Protein Total 7.1 6.8 - 8.8 g/dL 01/27/2019 2:48 PM [facility] Alkaline Phosphatase 68 40 - 150 U/L 01/27/2019 2:48 PM [facility] ALT 36 0 - 70 U/L 01/27/2019 2:48 PM [facility] T [facility] AST 23 0 - 45 U/L 01/27/2019 2:48 PM [facility] T [facility] Specimen Anatomical Collection Method Collection Time Receive d Time (Source) Location / / Volume Laterality Blood specimen 01/26/2019 2:35 PM 019 2:36 (specimen) CDT PM CDT Juan Jsoé Michelle MD LAB - BLOOD ORDERABLES Performing Organization Address City/State/ZIP Code Phon e Number [facility] [address] [place] [address] (ABNORMAL) CBC with platelets (01/26/2019 2:35 PM CDT) Analysis Performed At Patho logist Time Signature WBC 12.4 (H) 4.0 - 11.0 01/26/2019 [place] 10e9/L 3:09 PM CDT [facility] RBC Count 4.94 4.4 - 5.9 01/26/2019 [place] 10e12/L 3:09 PM CDT [facility] Hemoglobin 15.1 13.3 - [facility] 17.7 g/dL 3:09 PM T [facility] Hematocrit 45.9 40.0 - 01/26/2019 [facility] 53.0 % 3:09 PM CDT [facility] MCV 93 78 - 100 01/26/2019 [facility] fl 3:09 PM CDT [facility] [place] MCH 30.6 26.5 - 01/26/2019 [facility] 33.0 pg 3:09 PM CDT [facility] [place] MCHC 32.9 31.5 - 01/26/2019 [facility] 36.5 g/dL 3:09 PM CDT [facility] [place] RDW 14.3 10.0 - 01/26/2019 [facility] 15.0 % 3:09 PM CDT [facility] [place] Platelet Count 208 150 - 450 01/26/2019 [facility] 10e9/L 3:09 PM CDT [facility] [place] Specimen Anatomical Collection Method Collection Time Receive d Time (Source) Location / / Volume Laterality Blood specimen 01/26/2019 2:35 PM 019 2:36 (specimen) CDT PM CDT Juan José Michelle MD LAB - BLOOD ORDERABLES Performing Organization Address City/State/ZIP Code Phon e Number [facility] [place] [address] [place] [address] UA reflex to Microscopic and Culture (01/26/2019 2:34 PM CDT) [facility] Method Time Signature Color Urine Yellow 01/26/2019 [facility] 3:01 PM CDT [facility] [place] Appearance Urine Clear 01/26/2019 [facility] 3:01 PM CDT [facility] [place] Glucose Urine Negative NEG^Negat 01/26/2019 [facility] [place]jan mg/dL 3:01 PM CDT [facility] [place] Bilirubin Urine Negative NEG^Negat 01/26/2019 [facility] [place]jan 3:01 PM CDT [facility] [place] Ketones Urine Negative NEG^Negat 01/26/2019 [facility] [place] mg/dL 3:01 PM CDT [facility] [place] Specific [place] 1.020 1.003 - 01/26/2019 [facility] Urine 1.035 3:01 PM CDT [facility] [place] Blood Urine Negative NEG^Negat 01/26/2019 [facility] [place]jan 3:01 PM CDT [facility] [place] pH Urine 7.0 5.0 - 7.0 01/26/2019 [facility] pH 3:01 PM CDT [facility] [place] Protein Albumin Negative NEG^Negat 01/26/2019 [facility] Urine gunjan mg/dL 3:01 PM CDT [facility] [place] Urobilinogen 0.2 0.2 - 1.0 01/26/2019 [place] Urine EU/dL 3:01 PM CDT [facility] Nitrite Urine Negative NEG^Negat 01/26/2019 [place]jan 3:01 PM CDT [facility] Leukocyte Negative NEG^Negat 01/26/2019 [place] Esterase Urine gunjan 3:01 PM CDT [facility] [place] Source Midstream 01/26/2019 [place] Urine 2:35 PM CDT [facility] Specimen (Source) Anatomical Collection Method Collection Time Re ceived Time Location / / Volume Laterality Examination of 01/26/2019 2:34 01/26/2019 2:35 midstream urine PM CDT PM CDT specimen (procedure) Juan José Michelle MD LAB - URINE ORDERABLES Performing Organization Address City/State/ZIP Code Phon e Number [facility] [address] [place] [address] documented in this encounter Visit Diagnoses Diagnosis Hyperlipidemia LDL goal <130 - Primary Other and unspecified hyperlipidemia Routine general medical examination at a [facility] care facility 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) Vitamin D deficiency Unspecified vitamin D deficiency DIANNE (obstructive sleep apnea) Obstructive sleep apnea (adult) (pediatr ic) Essential hypertension Unspecified essential hypertension Screening for prostate cancer Special screening for malignant neoplasm of prostate Screening for hypothyroidism Screening for thyroid disorder Special screening for malignant neoplasm s, colon documented in this encounter Care Teams 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
--- OUTSIDE RECORDS SUMMARY | 2022-06-20 14:11 | XMS_ITS | Encounter Summary ---
:1945 Author Organization [place] Address [facility] [place] [address] Care Team Providers Name Role Phone Juan José Michelle MD Primary Care Provider Juan José Michelle MD Unavailable Encounter Details Date Type Department Care Team Description 02/15/2019 Travel Social History Tobacco Use Types Packs/Day [...] on filedocumented in this encounter Care Teams Weigh Machine Operator Relationship Specialty Start Date End Date Juan José Michelle MD PCP - General Internal Medicine 05/08/15 01/09/21 Juan José Michelle MD Assigned PCP 07/26/16 12/30/20 [address] [place] [phone] documented as of this encounter
--- OUTSIDE RECORDS SUMMARY | 2022-06-20 14:11 | XMS_ITS | Encounter Summary ---
:1945 Author Organization [place] Address [address] [place] [address] Care Team Providers Name Role Phone Juan José Michelle MD Primary Care Provider Juan José Michelle MD Unavailable Reason for Visit Diagnostic Imaging XR (Routine) - Closed Specialty Diagnoses / Procedures Referred By Contact Refer red To Contact Diagnoses Great toe pain, right Randytavee-Gerson, Vickie Procedures XR Toe Right G/E 2 Views MD Lucia [address] [place], [place] [address] Referral ID Status Reason Start Date Expiration Date Visits Requ ested Visits Authorized [id number] Closed 01/13/2019 01/13/2020 1 1 Encounter Details Date Type Department Care Team Description 01/13/2019 Ancillary Procedure [facility] Votava-Slimyk, Great toe pain, [facility] [place]ickie right [address] [facility] MD [place], [place] [address] [address] [place], [place] [phone] Social History Tobacco Use Types Packs/Day [...] Name Priority Date/Time Associated Diagnosis Comme nts XR TOE RIGHT G/E 2 Routine 01/13/2019 1:38 PM Great toe pain, Results for this VIEWS CDT right procedure are i n the results section. documented in this encounter Results XR Toe Right G/E [...] Visit Diagnoses Diagnosis Great toe pain, right documented in this encounter Care Teams Lasting Room Supervisor Relationship Specialty Start Date End Date Juan José Michelle MD PCP - General Internal Medicine 05/08/15 01/09/21 Juan José Michelle MD Assigned PCP 07/26/16 12/30/20 [address] [facility] [address] [place] [phone] documented as of this encounter
--- OUTSIDE RECORDS SUMMARY | 2022-06-20 14:11 | XMS_ITS | Encounter Summary ---
:1945 Author Organization [place] Address [address] [place] [address] Care Team Providers Name Role Phone Juan [...] Reason for Visit Reason Comments Medication Refill lisinopril-hydrochlorothiazi de Encounter Details Date Type Department Care Team Description 09/02/2019 Refill [facility] Juan José Michelle MD Medication Refill [place] [address] (lisinopril-hydrochlorot [address], [address] h[place]) [address] [place] [phone] (Wo rk) Social History Tobacco Use Types [...] this encounter Miscellaneous Notes Telephone Encounter - Alma Ott RN - 09/03/2019 10:55 AM KNIFE SETTER GRINDER MACHINE Routing refill request to provider for review/approval because: Anne Marie given x1 and patient did not follow up, please advise Patient needs to be seen because: Over due for routine visit. CONCEPCIÓN Gomez, RN Flex Workforce Triage E SETTER GRINDER MACHINE Telephone Encounter - Keimark Elysia - 09/02/2019 11:13 AM CST Last Written Prescription Date: 06/11/19 Last Fill Quantity: 90 tablet, # refills: 0 Last office visit: 02/23/2019 with prescribing provider: Miguel Angel Future Office Visit: Requested Prescriptions Pending Prescriptions Disp Refills ??? lisinopril-hydrochlorothiazide (PRINZIDE/ZESTORETIC) 20-25 MG tablet [Pharmacy Med Name: LISINOPRIL-HCTZ 20-25 MG TAB] 90 tablet 0 Sig: TAKE 1 TABLET BY MOUTH EVERY DAY Diuretics (Including Combos) Protocol Passed - 09/02/2019 2:04 AM Passed - Blood pressure under 140/90 in past 12 months BP Readings from Last 3 Encounters: 04/05/19 133/89 02/23/19 108/76 01/26/19 122/81 Passed - Recent (12 mo) or future (30 days) visit within the authorizing provider's specialty Patient has had an office visit with the authorizing provider or a provider within the authorizing providers department within the previous 12 mos or has a future within next 30 days. See Patient Info tab in inbasket, or Choose Columns in Meds & Orders section of the refill encounter. Passed - Medication is active on med list Passed - Patient is age 18 or older Passed - Normal serum creatinine on file in past 12 months Recent Labs Lab Test 01/26/19 1435 CR 1.12 Passed - Normal serum potassium on file in past 12 months Recent Labs Lab Test 01/26/19 1435 POTASSIUM 3.9 Passed - Normal serum sodium on file in past 12 months Recent Labs Lab Test 01/26/19 1435 NA 140 E SETTER GRINDER MACHINE documented in this encounter Plan of Treatment Not on filedocumented as of this encounter Visit Diagnoses Diagnosis Benign essential hypertension Essential hypertension, benign documented in this encounter Care Teams Diver Pumper Relationship Specialty Start Date End Date Juan José Michelle MD PCP - General Internal Medicine 05/08/15 01/09/21 Thomas Singleton MD PCP - General Internal Medicine 01/10/21 07/08/21 [address] [place] [phone] Thomas Giron MD PCP - General Internal Medicine 07/09/[address] [place] [address] Juan José Michelle MD Assigned PCP 07/26/16 12/30/[address] [place] [address] Adonis Grullon, Assigned Neuroscience 11/29/20 PALynneC Provider [address] [place] [address] Adonis Grullon, Assigned Sleep Provider 11/29/20 02/24/21 PA-C [address] [place] [address] Thomas Singleton MD Assigned PCP 12/31/20 02/07/[address] [place] [address], [place] [phone] Ruddy Giron, Assigned Musculoskeletal 01/28/21 DPM Provider [address] [facility] [address] [place], [place] [address] Juan José Michelle MD Assigned PCP 02/08/21 02/24/[address] [place] [phone] Thomas Singleton MD Assigned PCP 02/25/21 06/23/[address] [place] [address], [place] [phone] Thomas Giron MD Assigned PCP 06/24/[address] [place] [id number] documented as of this encounter
--- OUTSIDE RECORDS SUMMARY | 2022-06-20 14:11 | XMS_ITS | Encounter Summary ---
:1945 Author Organization [place] Address [address] [facility] [place] [address] Care Team Providers Name Role Phone Juan José Michelle MD Primary Care Provider Juan José Michelle MD Unavailable Reason for Visit Reason Comments Medication Refill 2 meds Encounter Details Date Type Department Care Team Description 06/09/2019 Refill [facility] Juan José Michelle MD Medication Refill ([address] [place] [address] meds ) [address] [facility] [address] [place] [address] [...] this encounter Miscellaneous Notes Telephone Encounter - Amita Doss CMA - 06/09/2019 2:57 PM CDT triamterene-HCTZ (DYAZIDE) 37.5-25 MG capsule 90 capsule 0 03/15/2019 No Sig: TAKE 1 CAPSULE BY MOUTH EVERY DAY Last Written Prescription Date: 03/15/2019 Last Fill Quantity: 90, # refills: 0 Last office visit: 02/23/2019 with prescribing provider: Future Office Visit: allopurinol (ZYLOPRIM) 300 MG tablet 90 tablet 1 12/10/2018 No Sig: TAKE 1 TABLET BY MOUTH EVERY DAY Last Written Prescription Date: 12/10/2018 Last Fill Quantity: 90, # refills: 1 Last office visit: 02/23/2019 with prescribing provider: Future Office Visit: Requested Prescriptions Pending Prescriptions Disp Refills ??? allopurinol (ZYLOPRIM) 300 MG tablet [Pharmacy Med Name: ALLOPURINOL 300 MG TABLET] 90 tablet 1 Sig: TAKE 1 TABLET BY MOUTH EVERY DAY Gout Agents Protocol Passed - 06/09/2019 3:56 AM Passed - CBC on file in past 12 months Recent Labs Lab Test 01/26/19 1435 WBC 12.4* RBC 4.94 HGB 15.1 HCT 45.9 PLT 208 Passed - ALT on file in past 12 months Recent Labs Lab Test 01/26/19 1435 ALT 36 Passed - Has Uric Acid on file in past 12 months and value is less than 6 Recent Labs Lab Test 01/26/19 1435 URIC 4.9 If level is 6mg/dL or greater, ok to refill one time and refer to provider. Passed - Recent (12 mo) or future [...] Labs Lab Test 01/26/19 1435 CR 1.12 ??? 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
--- OUTSIDE RECORDS SUMMARY | 2022-06-20 14:11 | XMS_ITS | Encounter Summary ---
:1945 Author Organization [place] Address [facility] [place] [address] Care Team Providers Name Role Phone Juan José Michelle MD Primary Care Provider Juan José Michelle MD Unavailable Encounter Details Date Type Department Care Team Description 02/23/2019 Travel Social History Tobacco Use Types Packs/Day [...] on filedocumented in this encounter Care Teams Felt Hat Inspector And Packer Relationship Specialty Start Date End Date Juan José Michelle MD PCP - General Internal Medicine 05/08/15 01/09/21 Juan José Michelle MD Assigned PCP 07/26/16 12/30/20 [address] [place] [phone] documented as of this encounter
--- OUTSIDE RECORDS SUMMARY | 2022-06-20 14:11 | XMS_ITS | Encounter Summary ---
:1945 Author Organization [place] Address [address] [facility] [address] Care Team Providers Name Role Phone Juan José Michelle MD Primary Care Provider Juan José Michelle MD Unavailable Reason for Visit Reason Comments Medication Refill Encounter Details Date Type Department Care Team Description 06/10/2019 Refill [facility] Juan José Michelle MD Medication Refill [place] [address] [facility] [address] [facility] [address] [facility] [address] [facility] [place] [address] [place] [address] [phone] Social History Tobacco Use Types Packs/Day Years [...] Telephone Encounter - Abbi Werner RN - 06/11/2019 11:12 AM CDT Prescription approved per [facility] Refill Protocol. Abbi Hawthorne, RN Telephone Encounter - Kanika Broderick - 06/10/2019 1:42 PM CDT lisinopril-hydrochlorothiazide (PRINZIDE/ZESTORETIC) 20-25 MG per tablet 90 tablet 1 06/25/2018 Last Written Prescription Date: 06/25/2018 Last Fill Quantity: 90, # refills: 1 Last office visit: 02/23/2019 with prescribing provider: Tony Michelle Future Office Visit: Unknown Requested Prescriptions Pending Prescriptions Disp Refills ??? lisinopril-hydrochlorothiazide (PRINZIDE/ZESTORETIC) 20-25 MG tablet [Pharmacy Med Name: LISINOPRIL-HCTZ 20-25 MG TAB] 90 tablet 1 Sig: TAKE 1 TABLET BY MOUTH EVERY DAY Diuretics (Including Combos) Protocol Passed - 06/10/2019 11:37 AM Passed - Blood pressure under 140/90 [...] benign documented in this encounter Care Teams Music Artist Relationship Specialty Start Date End Date Juan José Michelle MD PCP - General Internal Medicine 05/08/15 01/09/21 Juan José Michelle MD Assigned PCP 07/26/16 12/30/20 [address] [place], [place] [phone] documented as of this encounter
--- OUTSIDE RECORDS SUMMARY | 2022-06-20 14:11 | XMS_ITS | Encounter Summary ---
:1945 Author Organization [place] Address [facility] [place] [address] Care Team Providers Name Role Phone Juan José Michelle MD Primary Care Provider Juan José Michelle MD Unavailable Encounter Details Date Type Department Care Team Description 03/15/2020 Telephone [facility] Juan José Michelle MD [place] [address] [facility] [address] [facility] [address] [place] [address] [place] [address] [phone] Social History Tobacco Use Types Packs/Day Years [...] Telephone Encounter - Lianet Beck CMA - 03/15/2020 1:06 PM CDT Panel Management Review Patient has the following on his problem list: IVD ASA: Passed Last LDL: Lab Results Component Value Date CHOL 154 01/26/2019 Lab Results Component Value Date HDL 57 01/26/2019 Lab Results Component Value Date LDL 83 01/26/2019 Lab Results Component Value Date TRIG 72 01/26/2019 Lab Results Component Value Date CHOLHDLRATIO 3.4 10/31/2015 Is the patient on a Statin? NO Is the patient on Aspirin? NO Last three blood pressure readings: BP Readings from Last 3 Encounters: 04/05/19 133/89 02/23/19 108/76 01/26/19 122/81 Tobacco History: History Smoking Status ??? Never Smoker Smokeless Tobacco ??? Never Used Hypertension Last three blood pressure readings: BP Readings from Last 3 Encounters: 04/05/19 133/89 02/23/19 108/76 01/26/19 122/81 Blood pressure: Passed HTN Guidelines: Less than 140/90 Composite cancer screening Chart review shows that this patient is due/due soon for the following Colonoscopy Summary: Patient is due/failing the following: COLONOSCOPY and PHYSICAL Action needed: Patient needs office visit for Physical . Type of outreach: Sent letter. Questions for provider review: None Lianet Beck MA Chart routed to . documented in this encounter Plan of Treatment Not on filedocumented as of this encounter Visit Diagnoses Not on filedocumented in this encounter Care Teams Leather Cutter Relationship Specialty Start Date End Date Juan José Michelle MD PCP - General Internal Medicine 05/08/15 01/09/21 Juan José Michelle MD Assigned PCP 07/26/16 12/30/20 [address] [place] [phone] documented as of this encounter
--- OUTSIDE RECORDS SUMMARY | 2022-06-20 14:11 | XMS_ITS | Encounter Summary ---
:1945 Author Organization [facility] Address [address] [place] [address] Care Team Providers Name Role Phone Juan [...] Reason for Visit Reason Comments Medication Refill triamterene-hctz Encounter Details Date Type Department Care Team Description 03/11/2019 Refill [facility] Juan José Michelle MD Medication Refill [place] [address] (triamterene-hctz) [address] [facility], [facility] [address] [place] [phone] (Wo rk) Social History Tobacco Use Types [...] this encounter Miscellaneous Notes Telephone Encounter - Elysia Maza - 03/11/2019 8:49 AM CDT Last Written Prescription Date: 12/10/18 Last Fill Quantity: 90 capsule, # refills: 0 Last office visit: 02/23/2019 with prescribing provider: Miguel Angel Future Office Visit: Requested Prescriptions Pending Prescriptions Disp Refills ??? triamterene-HCTZ (DYAZIDE) 37.5-25 MG capsule [Pharmacy Med Name: TRIAMTERENE-HCTZ 37.5-25 MG CP] 90 capsule 0 Sig: TAKE 1 CAPSULE BY MOUTH EVERY DAY Diuretics (Including Combos) Protocol Passed - 03/11/2019 6:58 AM Passed - Blood pressure under 140/90 in past 12 months BP Readings from Last 3 Encounters: 02/23/19 108/76 01/26/19 122/81 01/13/19 110/70 Passed - Recent (12 mo) or future [...] benign documented in this encounter Care Teams Kiln Furniture Saw Tender Relationship Specialty Start Date End Date Juan José Michelle MD PCP - General Internal Medicine 05/08/15 01/09/21 Thomas Singleton MD PCP - General Internal Medicine 01/10/21 07/08/[address] [place] [phone] Thomas Giron MD PCP - General Internal Medicine 07/09/[address] [place] [address] Juan José Michelle MD Assigned PCP 07/26/16 12/30/[address] [place] [address] Adonis Grullon, Assigned Neuroscience 11/29/20 PA-C Provider [address] [place], [place] [phone] Adonis Grullon, Assigned Sleep Provider 11/29/20 02/24/21 PA-C [address] [place], [place] [phone] Thomas Singleton MD Assigned PCP 12/31/20 02/07/[address] [place] [phone] Ruddy Giron, Assigned Musculoskeletal 01/28/21 DPM Provider [address] [place] [address] Juan José Michelle MD Assigned PCP 02/08/21 02/24/21 [address] [facility] [address] [place] [phone] Thomas Singleton MD Assigned PCP 02/25/21 06/23/[address] [place] [phone] Thomas Giron MD Assigned PCP 06/24/21 [address] [place] [id number] documented as of this encounter
--- OUTSIDE RECORDS SUMMARY | 2022-06-20 14:11 | XMS_ITS | Encounter Summary ---
:1945 Author Organization [place] Address [address] [facility] [place] [address] Care Team Providers Name Role Phone Juan José Michelle MD Primary Care Provider Juan José Michelle MD Unavailable Reason for Visit Reason Comments Medication Refill lisinopril-hctz Encounter Details Date Type Department Care Team Description 01/07/2019 Refill [facility] Juan José Michelle MD Medication Refill [place] [address] [facility] [address] [facility] [address] [place] [phone] (Wo rk) Social History Tobacco Use Types [...] this encounter Miscellaneous Notes Telephone Encounter - Ambika Carrillo RN - 01/08/2019 1:00 PM CDT Prescription approved per [facility] Refill Protocol. Ambika Machado RN Telephone Encounter - Elysia Maza - 01/07/2019 1:21 PM CDT Last Written Prescription Date: 06/25/18 Last Fill Quantity: 90 tablet, # refills: 1 Last office visit: 11/30/2018 with prescribing provider: Miguel Angel Future Office Visit: Requested Prescriptions Pending Prescriptions Disp Refills ??? lisinopril-hydrochlorothiazide (PRINZIDE/ZESTORETIC) 20-25 MG tablet [Pharmacy Med Name: LISINOPRIL-HCTZ 20-25 MG TAB] 90 tablet 0 Sig: RTS 10/22TAKE 1 TABLET BY MOUTH EVERY DAY Diuretics (Including Combos) Protocol Passed - 01/07/2019 9:21 AM Passed - Blood pressure under 140/90 in past 12 months BP Readings from Last 3 Encounters: 12/09/18 126/84 12/04/18 119/80 11/24/18 113/80 Passed - Recent [...] benign documented in this encounter Care Teams Shirt Marker Relationship Specialty Start Date End Date Juan José Michelle MD PCP - General Internal Medicine 05/08/15 01/09/21 Juan José Michelle MD Assigned PCP 07/26/16 12/30/20 [address] [place] [phone] documented as of this encounter
--- OUTSIDE RECORDS SUMMARY | 2022-06-20 14:11 | XMS_ITS | Encounter Summary ---
:1945 Author Organization [place] Address [address] [place] [address] Care Team Providers Name Role Phone Juan [...] Reason for Visit Reason Comments Medication Refill Allopurinol Encounter Details Date Type Department Care Team Description 01/24/2020 Refill [facility] Juan José Michelle MD Medication Refill [place] [address] (Allopurinol) [address] [facility], [facility] [address] [place] [phone] (Wo rk) Social History Tobacco Use Types [...] Telephone Encounter - Julianna Aly RN - 01/25/2020 2:13 PM CDT Prescription approved per [facility] Refill Protocol. Julianna Garrett RN Telephone Encounter - Kaylie Newberry MA - 01/25/2020 2:02 PM CDT allopurinol (ZYLOPRIM) 300 MG tablet 90 tablet 2 06/09/2019 No Sig: TAKE 1 TABLET BY MOUTH EVERY DAY Last Written Prescription Date: 06-09-2019 Last Fill Quantity: 90, # refills: 2 Last office visit: 02/23/2019 with prescribing provider: Future Office Visit: Unknown Requested Prescriptions Pending Prescriptions Disp Refills ??? 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) documented in this encounter Care Teams Shake Feeder Relationship Specialty Start Date End Date Juan José Michelle MD PCP - General Internal Medicine 05/08/15 01/09/21 Thomas Singleton MD PCP - General Internal Medicine 01/10/21 07/08/21 [address] [place] [phone] Thomas Giron MD PCP - General Internal Medicine 07/09/21 [address] [place] [address] Juan José Michelle MD Assigned PCP 07/26/16 12/30/20 [address] [place] [address] Adonis Grullon, Assigned Neuroscience 11/29/20 PA-C Provider [address] [place] [phone] Adonis Grullon, Assigned Sleep Provider 11/29/20 02/24/21 PA-C [address] [place] [address] Thomas Singleton MD Assigned PCP 12/31/20 02/07/[address] [place] [address], [place] [phone] Ruddy Giron, Assigned Musculoskeletal 01/28/21 DPM Provider [address] [facility] [address] [place] [address] Juan José Michelle MD Assigned PCP 02/08/21 02/24/[address] [place] [phone] Thomas Singleton MD Assigned PCP 02/25/21 06/23/[address] [place] [address], [place] [phone] Thomas Giron MD Assigned PCP 06/24/[address] [place], [place] [phone] documented as of this encounter
--- OUTSIDE RECORDS SUMMARY | 2022-06-20 14:12 | XMS_ITS | Encounter Summary ---
:1945 Author Organization [place] Address [facility] [place] [address] Care Team Providers Name Role Phone Juan José Michelle MD Primary Care Provider Juan José Michelle MD Unavailable Reason for Visit Reason Comments Fall Shoulder Injury Encounter Details Date Type Department Care Team Description 11/24/2018 Emergency [facility] Kacy Diaz E, martyldbernarda dislocation, [facility] Emergency Dep t DO left, initial [address] [facility] PHYSICIANS [place] [phone] [id number] [phone] [place], [place] [id number] (Wo rk) Social History Tobacco Use Types Packs/Day Years Used Date Former Smoker Cigars Smokeless Tobacco: Never Used Alcohol [...] Sign Reading Time Taken Comments Blood Pressure 113/80 11/24/2018 9:00 PM CDT Pulse 90 11/24/2018 9:00 PM CDT Temperature 36.7 ??C (98.1 ??F) 11/24/2018 6:10 PM CDT Respiratory Rate 12 11/24/2018 9:00 PM CDT Oxygen Saturation 97% 11/24/2018 9:00 PM CDT Inhaled Oxygen Concentration - - Weight 104.3 kg (230 lb) 11/24/2018 6:10 PM CDT Height 170.2 cm (5' 7) 11/24/2018 6:10 PM CDT Body Mass Index 36.02 11/24/2018 6:10 PM CDT documented in this encounter Discharge Instructions AttachmentsThe following attachments cannot be sent through Care Everywhere. DISLOCATION: SHOULDER (REDUCED) (MACANESE)SEDATION, PROCEDURAL (MACANESE) documented in this encounter Medications at Time of Discharge Medication Sig Dispensed Refills Start Date End Date dorzolamide-timolol INSTILL 1 DROP INTO 2 019 (COSOPT) 2-0.5 % BOTH EYES TWICE ophthalmic solution DAILY order for DME Equipment being ordered: CPAP 0 Patient Ruddy Port was set up at [place] on May 25, 2015. Patient received a [employer] Airsense 10 Auto. Pressures were set at Auto 5 - 15 cm H2O. Patient? s ramp is 0 cm H2O for Off and FLEX/EPR is A Flex 2. Patient receiv ed a [employer] Mask name: Simplus Full Face mask Size Medium, heated tubing and heated humidifier. Patient is enrolled in the [facility] Program and does need to meet comp liance. Patient has a follow up on TBD with LOIS Antonio. AKBAR CABRERA allopurinol (ZYLOPRIM) TAKE 1 TABLET BY 90 tablet 0 018 12/09/2018 300 MG MOUTH EVERY DAY tabletIndications: Idiopathic chronic gout of multiple sites without tophus brimonidine-timolol 1 drop 0 01/28/201311/13 (COMBIGAN) 0.2-0.5 % ophthalmic solution lisinopril-hydrochloroth TAKE 1 TABLET BY 90 tablet 1 06/2511/13/2020 iazide MOUTH DAILY (PRINZIDE/ZESTORETIC) 20-25 MG per tabletIndications: Benign essential hypertension triamterene-HCTZ TAKE 1 CAPSULE BY 90 capsule 0 09/11/2018 0 12/09/2018 (DYAZIDE) 37.5-25 MG MOUTH EVERY DAY capsuleIndications: Benign essential hypertension documented as of this encounter Progress Notes Mir Greer, RT - 11/24/2018 8:15 PM CDT RT-Called to assist with conscious sedation. End Tidal CO2 monitor placed on pt. Respiratory status maintained throughout procedure. RT Poppy on 11/24/2018 at 8:16 PM documented in this encounter ED Notes Nisa Doss RN - 11/24/2018 10:07 PM CDT AVS reviewed. Nely Bansal RN - 11/24/2018 6:13 PM CDT Pt slipped and fell while leaving grocery store. He has injury to left shoulder. Kacy Diaz DO - 11/24/2018 6:02 PM CDT History Chief Complaint: Left Shoulder Pain HPI Ruddy Calhoun is a right-handed, 73 year old male who presents for evaluation of left shoulder pain after a fall. This evening, he reports he was leaving the grocery store when he slipped on a patch of black ice and fell back onto his left shoulder. He denies losing consciousness or hitting his head. Due to the pain to his shoulder, he decided to present to the ED. Here, he reports no other injuries. Of note, he is not anticoagulated. Allergies: NKDA Medications: Allopurinol Lisinopril-hydrochlorothiazide Triamterene Past Medical History: HTN DIANNE Past Surgical History: Colon surgery Family History: Cerebrovascular disease Diabetes Social History: Marital Status: [2] Son at bedside. Former smoker. Negative for alcohol use. Comment: Sober for about 38 years. Review of Systems Musculoskeletal: Positive for arthralgias (left shoulder). Neurological: Negative for syncope and headaches. All other systems reviewed and are negative. Physical Exam Patient Vitals for the past 24 hrs: BP Temp Temp src Pulse Heart Rate Resp SpO2 Height Weight 11/24/182099 113/80 -- -- 90 91 12 97 % -- -- 11/24/182044 115/82 -- -- -- 88 21 96 % -- -- 11/24/182039 115/82 -- -- 88 88 11 97 % -- -- 11/24/182020 -- -- -- -- 85 13 98 % -- -- 11/24/182019 118/80 -- -- 88 -- -- -- -- -- 11/24/182014 (!) 118/96 -- -- 97 -- -- -- -- -- 11/24/181915 -- -- -- -- -- -- 99 % -- -- 11/24/181914 (!) 155/104 -- -- 65 -- -- -- -- -- 11/24/181809 (!) 143/94 98.1 ??F (36.7 ??C) Oral -- 68 18 100 % 1.702 m (5' 7) 104.3 kg (230 lb) Physical Exam General: Alert. Appears uncomfortable Head: The scalp, face, and head appear normal without trauma Eyes: Sclera white; Pupils are equal and round ENT: External ears normal. No hemotympanum. External nares normal. No septal hematoma. Neck: No midline tenderness or pain with full ROM. CV: Rate as above with regular rhythm No murmur 2/2 radial and dorsal pedal pulses Resp: Breath sounds clear and equal bilaterally Non-labored, no retractions or accessory muscle use GI: Abdomen soft, non-tender, non-distended No rebound tenderness or guarding MSK: No midline tenderness or bony step-off No deformity L. Shoulder with visible deformity; decreased ROM LUE 2/2 to pain, no elbow tenderness or wrist tenderness; moves remainder of extremities Skin: No rash or lesions noted. Neuro: No apparent deficit. Sensation intact x4. GCS: 15 Psych: Normal affect. Emergency Department Course Imaging: Radiographic findings were communicated with the patient who voiced understanding of the findings. XR Shoulder 3 views, Left: Dislocated humeral head, as per radiology. XR Shoulder Portable 2-3 views, Left: Continued complete shoulder dislocation identified inferiorly and anteriorly, as per radiology. XR Shoulder 3 views, Left: The dislocation has been reduced. There is now normal alignment. No fractures are identified, as per radiology. Procedure: [facility] Procedure Note Sedation: Performed by: Kacy Diaz Authorized by: Kacy Diaz Pre-Procedure Assessment done at 1999. Expected Level: Moderate Sedation Indication: Sedation is required to allow for joint reduction Consent obtained from patient and relative (patient's son) after discussing the risks, benefits and alternatives. PO Intake: Appropriately NPO for procedure ASA Class: Class 3 Mallampati: Grade 2 Lungs: Lungs Clear with good breath sounds bilaterally. Heart: Normal heart sounds and rate History and physical reviewed and no updates needed. I have reviewed the lab findings, diagnostic data, medications, and the plan for sedation. I have determined this patient to be an appropriate candidate for the planned sedation and procedure and have reassessed the patient IMMEDIATELY PRIOR to sedation and procedure. Sedation Post Procedure Summary: Prior to the start of the procedure and with procedural staff participation, I verbally confirmed the patient???s identity using two indicators, relevant allergies, that the procedure was appropriate and matched the consent or emergent situation, and that the correct equipment/implants were available. Immediately prior to starting the procedure I conducted the Time Out with the procedural staff and re-confirmed the patient???s name, procedure, and site/side. (The Joint Commission universal protocol was followed.) Yes Sedatives: Propofol Vital signs, airway, End Tidal CO2 and pulse oximetry were monitored and remained stable throughout the procedure and sedation was maintained until the procedure was complete. The patient was monitoredby staff until sedation discharge criteria were met. Patient tolerance: Oxygen Desaturation down to 86%, resolved with: Airway Repositioning (e.g. jaw thrust, chin lift) and Positive Pressure ventillation applied (e.g. bag mask). Time of sedation in minutes: 10 minutes from beginning to end of physician one to one monitoring. Narrative: Procedure: shoulder reduction INDICATION: anterior inferior L. shoulder dislocation PERFORMED by: Dr. Kacy Diaz CONSENT: Written consent obtained on behalf of patient by his son regarding the risks, benefits of the procedure. ANESTHESIA: Propofol TECHNIQUE: Gentle downward traction was applied to the upper the arm, with adduction. The arm was then externally rotated to 90??, and the shoulder was abducted fully. The arm was then gently pronatedand brought down to the patient's side. With completion of this, the glenohumeral joint was now in an anatomical position. The patient tolerated the procedure well without difficulty. Patient was notedto have desaturations to the mid 80s, requiring BVM and jaw thrust though O2 sats improved. Interventions: 1902 Zofran, 4 mg, IV injection 1904 Dilaudid, 0.5 mg, IV injection 1949 Dilaudid, 0.5 mg, IV injection 2000 Propofol, 70 mg, IV infection Emergency Department Course: The patient was sent for a shoulder x-ray while in triage of the emergency department, findings above. ?? Nursing notes and vitals reviewed. (1903) I performed an exam of the patient as documented above. I attempted to reduce the shoulder without sedation at this time. ?? IV inserted. Medicine administered as documented above. Blood drawn. (1909) I attempted to reduce shoulder with patient in prone position though post reduction x-rays confirmed hsoulder remained dislocated. ?? (1949) With RT at bedside, I performed a sedated reduction of the left shoulder, as detailed above. (2021) I rechecked the patient and discussed the results of the reduction with the newly arrived family. (2129) I updated the patient on the results of the final x-ray and discussed follow-up with orthopedics. Findings and plan explained to the Patient and family. Patient discharged home with instructions regarding supportive care, medications, and reasons to return. The importance of close follow-up was reviewed. ?? I personally reviewed the imaging results with the Patient and family and answered all related questions prior to discharge. Impression & Plan Medical Decision Making: Ruddy Calhoun is a 73 year old male who presents for evaluation of left shoulder pain after a mechanical fall as described above. This is consistent by clinical and radiological exam with a shoulder dislocation. The dislocation was successfully reduced and a figure-8 sling was placed by myself, the fitwas checked. The neurovascular exam is normal pre and post-reduction. I will have patient stay in the sling until follow-up with orthopedics in 3-5 days. I did discuss with patient and family concern for likely rotator cuff injury as well as shoulder easily would relocate and dislocate during procedure. The head to toe trauma exam is otherwise normal and I doubt serious underlying spinal, intracerebral, chest, abdominal, pelvic or extremity trauma. Diagnosis: ICD-10-CM 1. Shoulder dislocation, left, initial encounter S43.005A Disposition: discharged to home Discharge Medications: There were no discharge medications. Scribe Disclosure: I, Xiao Fishernidhi, am serving as a scribe on 11/24/2018 at 7:04 PM to personally document services performed by Kacy Diaz DO based on my observations and the provider's statements to me. Xiao Horacio 11/24/2018 [facility] Kacy Diaz DO 12/09/18 1508 documented in this encounter Plan of Treatment Not on filedocumented as of this encounter Procedures Procedure Name Priority Date/Time Associated Diagnosis Comme nts XR SHOULDER LEFT STAT 11/24/2018 9:14 PM Resul ts for this G/E 3 VIEWS CDT procedure are i n the results section. XR SHOULDER LEFT STAT 11/24/2018 7:35 PM Resul ts for this PORT G/E 2 VIEWS CDT procedure a re in the results section. XR SHOULDER LEFT STAT 11/24/2018 6:41 PM Resul ts for this G/E 3 VIEWS CDT procedure are i n the results section. documented in this encounter Results XR Shoulder Left G/E 3 Views (11/24/2018 9:14 PM CDT) Anatomical Region Laterality Modality Shoulder, Left Shoulder Left Digital Radiogra phy Specimen (Source) Anatomical Location Collection Method / Collectio n Time Received Time / Laterality Volume Narrative 11/24/2018 9:31 PM CDT SHOULDER TWO VIEWS LEFT ??11/24/2018 9:14 PM HISTORY: post-reduction COMPARISON: None. FINDINGS: The dislocation has been reduc ed. There is now normal alignment. No fractures are identified.. TERESO MCMULLEN MD Procedure Note Aayush Mcmullen MD - 11/24/2018For matting of this note might be different from the original. SHOULDER TWO VIEWS LEFT 11/24/2018 9:14 P M HISTORY: post-reduction COMPARISON: None. FINDINGS: The dislocation has been reduc ed. There is now normal alignment. No fractures are identified.. TERESO MCMULLEN MD Kacy Diaz DO [facility] IMAGING ORDER RASHID Shoulder XR, left 2-3 vw PORTABLE (11/24/2018 7:35 PM CDT) Anatomical Region Laterality Modality Shoulder, Left Shoulder Left Digital Radiogra phy Specimen (Source) Anatomical Location Collection Method / Collectio n Time Received Time / Laterality Volume Impressions 11/24/2018 8:44 PM CDT IMPRESSION: Continued complete shoulder dislocation identified inferiorly and anteriorly. MANNY SCHMIDT MD Narrative 11/24/2018 8:44 PM CDT SHOULDER LEFT PORTABLE TWO OR MORE VIEWS ?? 11/24/2018 7:35 PM HISTORY: Shoulder reduction. COMPARISON: 11/24/2018. Procedure Note Manny Schmidt MD - 11/24/2018Forma tting of this note might be different from the original. SHOULDER LEFT PORTABLE TWO OR MORE VIEWS 11/24/2018 7:35 PM HISTORY: Shoulder reduction. COMPARISON: 11/24/2018. IMPRESSION: Continued complete shoulder dislocation identified inferiorly and anteriorly. MANNY SCHMIDT MD Kacy Diaz DO [facility]IC IMAGING ORDER RASHID XR Shoulder Left G/E 3 Views (11/24/2018 6:41 PM CDT) Anatomical Region Laterality Modality Shoulder, Left Shoulder Left Computed Radiogr aphy Specimen (Source) Anatomical Location Collection Method / Collectio n Time Received Time / Laterality Volume Impressions 11/24/2018 6:56 PM CDT IMPRESSION: Dislocated humeral head. TERESO MCMULLEN MD Narrative 11/24/2018 6:56 PM CDT SHOULDER TWO VIEWS LEFT ??11/24/2018 6:41 PM HISTORY: fall, L shoulder pain COMPARISON: None. FINDINGS: The humeral head is dislocated anterior and inferior to the glenoid.. ??No fractures are identified. Procedure Note Aayush Mcmullen MD - 11/24/2018For matting of this note might be different from the original. SHOULDER TWO VIEWS LEFT 11/24/2018 6:41 P M HISTORY: fall, L shoulder pain COMPARISON: None. FINDINGS: The humeral head is dislocated anterior and inferior to the glenoid.. No fractures are identified. IMPRESSION: Dislocated humeral head. TERESO MCMULLEN MD Kacy Diaz DO [facility] IMAGING ORDER RASHID documented in this encounter Visit Diagnoses Diagnosis Shoulder dislocation, left, initial enco unter documented in this encounter Administered Medications Inactive Administered Medications - up to 3 most recent administrations Medication Order MAR Action Action Date Dose Rate Site HYDROmorphone (DILAUDID) injection Given 11/24/2018 7:50 PM CDT 0.5 mg 1 mg 1 mg, Intravenous, ONCE, On 11/24/18 at 1847, For 1 dose Given 11/24/2018 7:05 PM CDT 0.5 mg ondansetron (ZOFRAN) injection 4 mg Given 11/24/2018 7:03 PM CDT 4 mg 4 mg, Intravenous, ONCE, Administer over 2-5 Minutes, On 11/24/18 at 1847, For 1 dose, Irritant. For ordered IV doses 0.1-4 mg, give IV Push undiluted over 2-5 minutes. propofol (DIPRIVAN) injection 10 mg/mL v ial Given 11/24/2018 8:01 PM CDT 52 mg 52 mg (rounded from 52.15 mg = 0.5 mg/kg ? 104.3 kg), Intravenous, ONCE, On 11/24/18 at 1933, For 1 dose, For sedation of mechanically ventilated patients. propofol (DIPRIVAN) injection 10 mg/mL v ial Given 11/24/2018 8:01 PM CDT 18 mg 18 mg, Intravenous, ONCE, On 11/24/18 at 2139, For 1 dose, For sedation of mechanically ventilated patients. documented in this encounter Active and Recently Administered Medications Due to Daylight Saving Time, this section may contain times in both MENTAL HEALTH PROGRAM DIRECTOR and CDT. Scheduled Medication Order 11/22/2018 11/23/2018 11/24/2018 HYDROmorphone (DILAUDID) injection 1 mg (COMPLETED) 1904 (Given - Provider: Nisa Doss RN - Comment: per MD, start with 0.5 mg)1949 (Given - Provider: Nisa Doss RN - Comment: given rest of original 1 mg order.) 1 mg, Intravenous, ONCE, 1 dose, 11/24/18 at 1847 ondansetron (ZOFRAN) injection 4 mg (COMPLETED) 1902 (Given - Provider: Nisa Doss RN) 4 mg, Intravenous, ONCE, Administer over 2-5 Minutes, 11/24/18 at 1847, For 1 dose, Irritant. For ordered IV doses 0.1-4 mg, give IV Push undiluted over 2-5 minutes. propofol (DIPRIVAN) injection 10 mg/mL vial (COMPLETED) 2000 (Given - Provider: Nisa Doss, RASHMI) 52 mg (rounded from 52.15 mg = 0.5 mg/kg ? 104.3 kg), Intravenous, ONCE, 11/24/18 at 1933, For 1 dose, For sedation of mechanically ventilated patients. propofol (DIPRIVAN) injection 10 mg/mL vial (COMPLETED) 2000 (Given - Provider: Nisa Doss RN) 18 mg, Intravenous, ONCE, On 11/24/18 at 2139, For 1 dose, For sedation of mechanically ventilated patients. documented in this encounter Care Teams Building Dismantler Relationship Specialty Start Date End Date Juan José Michelle MD PCP - General Internal Medicine 05/08/15 01/09/21 Juan José Michelle MD Assigned PCP 07/26/16 12/30/20 [id number] [place], [place] [phone] documented as of this encounter
--- OUTSIDE RECORDS SUMMARY | 2022-06-20 14:12 | XMS_ITS | Encounter Summary ---
:1945 Author Organization [place] Address [address] [place] [address] Care Team Providers Name Role Phone Juan José Michelle MD Primary Care Provider Juan José Michelle MD Unavailable Juan José Michelle MD Unavailable Reason for Visit Reason Comments Foot Problems right foot callus on the gre at toe on the medial side, [id number] Encounter Details Date Type Department Care Team Description 06/11/2017 Office Visit [facility]ita Sims, Skin ca llus (Primary Dx); [facility] [place] DPM, Podiatry/Foot Pes planus of both feet; [id number] E and Ankle Surgery HAV (hallux abducto valgus), right; [place] [id number] Neuropathy [phone] [address] [place], [place] [address] (Wo rk) Social History Tobacco Use Types [...] Sign Reading Time Taken Comments Blood Pressure 128/70 06/11/2017 1:20 PM CDT Pulse - - Temperature - - Respiratory Rate - - Oxygen Saturation - - Inhaled Oxygen Concentration - - Weight 105.7 kg (233 lb) 06/11/2017 1:20 PM CDT Height 170.2 cm (5' 7) 06/11/2017 1:20 PM CDT Body Mass Index 36.49 06/11/2017 1:20 PM CDT documented in this encounter Patient Instructions Patient InstructionsPhillip Liu - 06/11/2017 1:[address] [facility] LOCATIONS: FRIDAY AM - [place] FRIDAY - [place] [address] [facility] [address] [place] [address] [place] [address] / FX [phone] / FX [phone] FRIDAY - [place] [address] [place] [address] / FX [phone] FRIDAY PM - [place] SCHEDULE SURGERY: [phone] [place] [address] APPOINTMENTS: [phone] [place] [address] BILLING QUESTIONS: [phone] / FX [phone] NEUROPATHY Peripheral neuropathy is damage of the peripheral nerves. Your peripheral nerves--the nerves in yourtoes and fingertips--are the ones on the periphery of your body. When the nerves are damaged, they don't function properly. People with peripheral neuropathy have decreased or abnormal sensation in their toes and fingers. Sometimes, they develop problems moving these parts of the body as well. When a person develops neuropathy, they usually begin to feel numbness or tingling in their feet andsometime in their legs. Other symptoms may include painful burning or hot feet, tingling or feeling like insects or ants are crawling on your feet or legs. In the [place], the most common cause of peripheral neuropathy is diabetes. According to the [place] [employer], 60 to 70 percent of people with diabetes will develop neuropathy withintheir lifetime. Other causes of peripheral neuropathy include: Certain medications, including some chemotherapy drugs. Heredity. Some people have a family history of peripheral neuropathy. Advanced age. Peripheral neuropathy is more common as people age. Arthritis. Certain type of arthritis can cause peripheral neuropathy. Alcoholism. According to the [place] National Library of Medicine, up to half of all long-term heavy alcohol users develop peripheral neuropathy. Neurological disorders. Certain neurological disorders, including spina bifida and fibromyalgia, areassociated with peripheral neuropathy. Injury. Acute injury to the peripheral nerves may also cause peripheral neuropathy. Pain Management Strategies: 1.Blood Sugar Control - Most important in diabetics 2. Medications such as: Amytriptylline, duloxetine, gabapentin, lyrica, tramadol 3. Nutritional therapy: Vitamin B6 (100mg daily), Vitamin B12 (75mcg daily), Vitamin D 2000 IU daily), Alpha-Lipoic Acid (600-1800mg daily), Oxguuu-L-Zxfvyjhcr (500-1000mg TID, L-methyl folate (1500mcgdaily) 4. TENS (Trans-electrical nerve stimulation) with physical therapy 5. Compounding pain creams RECOMMENDATION TO AVOID PROBLEMS 1.Wash your feet with lukewarm water and a mild soap and then dry them thoroughly, especially between the toes. 2. Examine your feet daily looking for cuts, corns, blisters, cracks, ect., especially after wearingnew shoes. Make sure to look between your toes. If you cannot see the bottom of your feet, set a mirror on the floor and hold your foot over it, or ask a spouse, friend or family member to examine yourfeet for you. Contact your doctor immediately if new problems are noted or if sores are not healing. 3. Immediately apply moisturizer to the tops and bottoms of your feet, avoiding areas between the toes. Hand lotion (Intesive Care, Leandra, Eucerin, Neutrogena, Curel, ect...) is sufficient unless your doctor prescribes a medicated lotion. Apply sunscreen to your feet when going swimming outside. 4. Use clean comfortable shoes, wear white socks (if you have any bleeding or drainage, you will seeit on white socks). Socks should not have thick seams or cut off the circulation around the leg. Break in new shoes slowly and rotate with older shoes until broken in. Check the inside of your shoes with your hand to look for areas of irritation or objects that may have fallen into your shoes. 5. Keep slippers by the side of your bed for use during the night. 6. Shoes should be fitted by a professional and should not cause areas of irritation. Check your feet regularly when wearing a new pair of shoes and replace them as needed. 7. Cut your nails straight across, but then gently round any sharp edges with a cardboard nail file.If you have neuropathy, peripheral vascular disease or cannot see that well to trim your own toenails, see a medical professional for care. 8. Taking Vitamin B6, B12, and Alpha Lipoic Acid supplements can sometimes help. DO NOT 1. Do not soak your feet if you have an open sore. Use only lukewarm water and always check the temperature with your hand as hot water can easily burn your feet. 2. Never use a hot water bottle or heating pad on your feet. Also do not apply cold compresses to your feet. With decreased sensation, you could burn or freeze your feet. 3. Do not apply any of these to your feet: - Over the counter medicine for corns or warts - Harsh chemicals like boric acid - Do not self-treat corns, cuts, blisters or infections. Always consult your doctor. 4. Do not wear sandals, slippers or walk barefoot, especially on hot sand or concrete or other harshsurfaces. 5. If you smoke, stop! CALLUS / CORNS / IPKs When there is excessive friction or pressure on the skin, the body responds by making the skin thicker to protect the deeper structures from becoming exposed. While this works well to protect the deeper structures, the thickened skin can increase pressure and pain. CALLUS: Flat, diffuse thickening are simple calluses and they are usually caused by friction. Often these are the result of rubbing on a shoe or going barefoot. CORNS: Calluses with a central core between the toes are called corns. These result from prominent joints on adjacent toes rubbing together. Theses are a symptom of bone malalignment and will always recur unless the underlying bones are addressed surgically. IPKs: Calluses with a central core on the ball of the foot are usually IPKs (intractable plantar keratosis). These are caused by excessive pressure from the metatarsals, the bones that make up the ballof the foot. Often one of these bones is too long or too prominent. Again, these will always recur unless the underlying bone issue is addressed. There is no cure for these. They will either go away bythemselves, recur, or more could develop. ROUTINE MAINTENANCE 1. File them down with a pumice stone or callus file a couple times a week. 2. An electric callus removing device. [employer] Perfect Electronic Pedicure Foot File and Callus Remover can be a good option. 3. Lotion can be applied to soften the callus. A urea based cream such as Kersal or Vanicream or thicker cream with bonilla butter are good options. 4. Toe spacers or toe covers can be used for corns, gel pads can be used for other lesions on the bottom of the foot. If there is a surgical pathology noted, such as a prominent bone, often this needs to be addressed surgically to minimize recurrence. However, sometimes the lesion simply migrates to another spot aftersurgery, so it is not a guaranteed cure. Body Mass Index (BMI) Many things can cause foot and ankle problems. Foot structure, activity level, foot mechanics and injuries are common causes of pain. One very important issue that often goes unmentioned, is body weight. Extra weight can cause increased stress on muscles, ligaments, bones and tendons. Sometimes just a few extra pounds is all it takesto put one over her/his threshold. Without reducing that stress, it can be difficult to alleviate pain. Some people are uncomfortable addressing this issue, but we feel it is important for you to thinkabout it. As Foot & Ankle specialists, our job is addressing the lower extremity problem and possible causes. Regarding extra body weight, we encourage patients to discuss diet and weight management plans with their primary care doctors. It is this team approach that gives you the best opportunityfor pain relief and getting you back on your feet. documented in this encounter Progress Notes [facility]ita Sims DPM, Podiatry/Foot and Ankle Surgery - 06/11/2017 1:15 PM CDT PATIENT HISTORY: Ruddy Calhoun is a 71 year old male who presents to clinic for callus to right foot.Notes that it got caught in the sheets a week or 2 ago and was bleeding. Here with his . 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 Want to make sure there is not infection. Also notesclicking in his foot from time to time. Notes it is not painful. Review of Systems: Patient denies fever, chills, rash, wound, stiffness, limping, weakness, heart burn, blood in stool, chest pain with activity, calf pain when walking, shortness of breath with activity, chronic cough, easy bleeding/bruising,excessive thirst, fatigue, depression, anxiety. Patient admits to numbness, swelling. PAST MEDICAL HISTORY: Past Medical History: Diagnosis Date ??? HTN (hypertension) PAST SURGICAL HISTORY: Past Surgical History: Procedure Laterality Date ??? COLON SURGERY MEDICATIONS: Current Outpatient Prescriptions: ??? triamterene-hydrochlorothiazide (DYAZIDE) 37.5-25 MG per capsule, TAKE 1 CAPSULE BY MOUTH EVERY DAY, Disp: 90 capsule, Rfl: 2 ??? NONFORMULARY, , Disp: , Rfl: ??? NONFORMULARY, , Disp: , Rfl: ??? NONFORMULARY, , Disp: , Rfl: ??? NONFORMULARY, , Disp: , Rfl: ??? lisinopril-hydrochlorothiazide (PRINZIDE/ZESTORETIC) 20-25 MG per tablet, TAKE 1 TABLET BY MOUTHEVERY DAY, Disp: 90 tablet, Rfl: 2 ??? indomethacin (INDOCIN) 25 MG capsule, Take 1 capsule (25 mg) by mouth 2 times daily (with meals), Disp: 42 capsule, Rfl: 0 ??? order for DME, Equipment being ordered: CPAP Patient Ruddy Calhoun was set up at [facility] on May 25, 2015. Patient received a Resmed Airsense 10 Auto. Pressures were set at Auto 5 - 15 cm H2O.Patient? s ramp is 0 cm H2O for Off and FLEX/EPR is A Flex 2. Patient received a [employer] Mask name: Simplus Full Face mask Size Medium, heated tubing and heated humidifier. Patient is enrolled in the STM Program and does need to meet compliance. Patient has a follow up on TBD with LOIS Molina. AKBAR CABREAR, Disp: , Rfl: ALLERGIES: No Known Allergies SOCIAL HISTORY: Social History Social History ??? Marital status: Spouse name: N/A ??? Number of children: N/A ??? Years of education: N/A Occupational History ??? Not on file. Social History Main Topics ??? Smoking status: Former Smoker Types: Cigars ??? Smokeless tobacco: Never Used ??? Alcohol use No Comment: not for about 35 years (as of 2014) ??? Drug use: No ??? Sexual activity: No Other Topics Concern ??? Not on file Social History Narrative FAMILY HISTORY: Family History Problem Relation Age of Onset ??? CEREBROVASCULAR DISEASE Mother ??? DIABETES Sister EXAM:Vitals: BP 128/70 Ht 1.702 m (5' 7) Wt 105.7 kg (233 lb) BMI 36.49 kg/m2 BMI= Body mass index is 36.49 kg/(m^2). General appearance: Patient is alert and fully cooperative with history & exam. No sign of distress is noted during the visit. Psychiatric: Affect is pleasant & appropriate. Patient appears motivated to improve health. Respiratory: Breathing is regular & unlabored while sitting. HEENT: Hearing is intact to spoken word. Speech is clear. No gross evidence of visual impairment that would impact ambulation. Dermatologic: diffuse xerosis to skin. Localized hyperkeratotic lesion medial right interphalangeal joint. No open lesions, redness, or signs of infection. Vascular: DP & PT pulses are intact & regular bilaterally. edema and varicosities noted. CFTand skin temperature is normal to both lower extremities. Neurologic: Lower extremity sensation is diminished to right foot. Musculoskeletal: Patient is ambulatory without rocker bottom shoes. Decrease arch height. Lateral deviation of the right hallux. ASSESSMENT: Skin callus Pes planus of both feet HAV (hallux abducto valgus), right Neuropathy (H) PLAN: Reviewed patient's chart in [facility]. Discussed causes of keratomas. They are due to areas of increase friction. Hammertoes can create these as they put more pressure to the metatarsal head. Discussed treatments such as using foot file, pumice stone, metatarsal pads, orthotics, and not walking barefoot. Recommend lotioning feet and using pumice stone. He is in custom orthotics. [place] Sims DPM, Podiatry/Foot and Ankle Surgery Weight management plan: Patient was referred to their PCP to discuss a diet and exercise plan. documented in this encounter Nursing Notes Phillip Liu - 06/11/2017 1:15 PM CDT Chief Complaint Patient presents with ??? Foot Problems right foot callus on the great toe on the medial side, [id number] Initial BP 128/70 Ht 5' 7 (1.702 m) Wt 233 lb (105.7 kg) BMI 36.49 kg/m2 Estimated body mass index is 36.49 kg/(m^2) as calculated from the following: Height as of this encounter: 5' 7 (1.702 m). Weight as of this encounter: 233 lb (105.7 kg). Medication Reconciliation: complete Phillip Liu MA documented in this encounter Plan of Treatment Not on filedocumented as of this encounter Visit Diagnoses Diagnosis Skin callus - Primary Corns and callosities Pes planus of both feet [place] (hallux abducto valgus), right Neuropathy Mononeuritis of unspecified site documented in this encounter Care Teams Relationship Assoc Relationship Specialty Start Date End Date Juan José Michelle MD PCP - General Internal Medicine 05/08/15 01/09/21 Juan José Michelle MD PCP - Assigned PCP 07/26/16 11/17/18 [address] [place] [phone] Juan José Michelle MD Assigned PCP 07/26/16 12/30/20 [address] [place] [phone] documented as of this encounter
--- OUTSIDE RECORDS SUMMARY | 2022-06-20 14:12 | XMS_ITS | Encounter Summary ---
:1945 Author Organization [facility] Address [address] [facility] [place] [address] Care Team Providers Name Role Phone Juan José Michelle MD Primary Care Provider Juan José Michelle MD Unavailable Juan José Michelle MD Unavailable Reason for Visit Reason Comments Medication Refill Encounter Details Date Type Department Care Team Description 06/24/2018 Refill [facility] Juan Joés Michelle MD Medication Refill [place] [address] [facility] [address] [facility] [place] [address] [place] [address] [phone] Social History Tobacco Use Types Packs/Day Years [...] this encounter Miscellaneous Notes Telephone Encounter - Evie Sotelo CMA - 06/24/2018 8:31 AM CDT Last Written Prescription Date: 12/10/17 Last Fill Quantity: 90, # refills: 1 Last office visit: 03/12/2018 with prescribing provider: Future Office Visit: Requested Prescriptions Pending Prescriptions Disp Refills ??? lisinopril-hydrochlorothiazide (PRINZIDE/ZESTORETIC) 20-25 MG per tablet [Pharmacy Med Name: LISINOPRIL-HCTZ 20-25 MG TAB] 90 tablet 1 Sig: TAKE 1 TABLET BY MOUTH DAILY Diuretics (Including Combos) Protocol Passed 06/24/2018 1:57 AM Passed - Blood pressure under 140/90 in past 12 months BP Readings from Last 3 Encounters: 03/12/18 100/60 11/27/17 126/77 06/11/17 128/70 Passed - Recent (12 mo) or future (30 days) visit within the authorizing provider's specialty Patient had office visit in the last 12 months or has a visit in the next 30 days with authorizing provider or within the authorizing provider's specialty. See Patient Info tab in inbasket, or Choose Columns in Meds & Orders section of the refill encounter. 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
--- OUTSIDE RECORDS SUMMARY | 2022-06-20 14:12 | XMS_ITS | Encounter Summary ---
:1945 Author Organization [place] Address [address] [facility] [place] [address] Care Team Providers Name Role Phone Juan José Michelle MD Primary Care Provider Juan José Michelle MD Unavailable Juan José Michelle MD Unavailable Reason for Visit Reason Comments Medication Refill Encounter Details Date Type Department Care Team Description 03/08/2018 Refill [facility] Juan José Michelle MD Medication Refill [place] [address] [facility] [address] [facility] [place] [address] [place] [address] [phone] Social History Tobacco Use Types Packs/Day Years [...] this encounter Miscellaneous Notes Telephone Encounter - Mandy Gibbons RN - 03/10/2018 10:21 AM CDT Prescription approved per [facility] Refill Protocol. Mandy Gibbons RN Telephone Encounter - Willam Del Valle CMA - 03/09/2018 11:11 AM CDT Requested Prescriptions Pending Prescriptions Disp Refills ??? triamterene-hydrochlorothiazide (DYAZIDE) 37.5-25 MG per capsule [Pharmacy Med Name: TRIAMTERENE-HCTZ 37.5-25 MG CP] 90 capsule 2 Last Written Prescription Date: 06/09/17 Last Fill Quantity: 90, # refills: 2 Last office visit: 12/03/2017 with prescribing provider: Future Office Visit: Next 5 appointments (look out 90 days) Mar 12, 2018 4:30 PM CDT Office Visit with Juan Jsoé Michelle MD [facility] [address] [facility] [address] Sig: TAKE 1 CAPSULE BY MOUTH EVERY DAY Diuretics (Including Combos) Protocol Passed 03/08/2018 3:51 AM Passed - Blood pressure under 140/90 in past 12 months BP Readings from Last 3 Encounters: 11/27/17 126/77 06/11/17 128/70 05/12/17 126/79 Passed - Recent (12 mo) or future [...] benign documented in this encounter Care Teams Window Glass Cutter Off Relationship Specialty Start Date End Date Juan José Michelle MD PCP - General Internal Medicine 05/08/15 01/09/21 Juan José Michelle MD PCP - Assigned PCP 07/26/16 11/17/18 [address] [place] [phone] Juan José Michelle MD Assigned PCP 07/26/16 12/30/20 [address] [place] [phone] documented as of this encounter
--- OUTSIDE RECORDS SUMMARY | 2022-06-20 14:12 | XMS_ITS | Encounter Summary ---
:1945 Author Organization [facility] Address [address] [place] [address] Care Team Providers Name Role Phone Juan José Michelle MD Primary Care Provider Juan José Michelle MD Unavailable Juan José Michelle MD Unavailable Reason for Visit Reason Comments Follow Up L hand infection, currently taking Cipro 500 mg QID for 7d Encounter Details Date Type Department Care Team Description 03/12/2018 Office Visit [facility] Juan José Michelle, Cellul itis of finger of left hand (Primary Dx); Clinic Angy WISDOM Essential hypertension; [address] [facility], [address] [facility] DIANNE (obstructive sleep apnea); [address] 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; [place] [id number] [place] Vitamin D deficiency; [phone] [id number] Class 2 obesity due to excess calories w ithout serious comorbidity with body mass index (BMI) of 35.0 to 35.9 in adult Social History Tobacco Use Types Packs/Day Years [...] Sign Reading Time Taken Comments Blood Pressure 100/60 03/12/2018 5:36 PM CDT Pulse 98 03/12/2018 5:21 PM CDT Temperature 37.1 ??C (98.8 ??F) 03/12/2018 5:21 PM CDT Respiratory Rate - - Oxygen Saturation 95% 03/12/2018 5:21 PM CDT Inhaled Oxygen Concentration - - Weight 107.1 kg (236 lb 1.6 oz) 03/12/2018 5:21 PM CDT Height 167 cm (5' 5.75) 03/12/2018 5:21 PM CDT Body Mass Index 38.4 03/12/2018 5:21 PM CDT documented in this encounter Progress Notes Willam Del Valle, [employer] OWNER - 03/12/2018 4:30 PM CDT SUBJECTIVE: Ruddy Calhoun is a 72 year old male who presents to clinic today for the following health issues: Chief Complaint Patient presents with ??? Follow Up For L hand infection, currently taking Cipro 500 mg QID for 7d The patient was seen in [facility] started having swelling of the left 3rd and 4th fingers after getting scratches from [place]. He was prescribed Cephalexin 500 mg QID for 7 days. The site is healing well with the antibiotic use. Problem list and histories reviewed & adjusted, as indicated. Additional history: as documented Current Outpatient Prescriptions Medication Sig Dispense Refill ??? allopurinol (ZYLOPRIM) 300 MG tablet TAKE 1 TABLET BY MOUTH DAILY 90 tablet 3 ??? lisinopril-hydrochlorothiazide (PRINZIDE/ZESTORETIC) 20-25 MG per tablet Take 1 tablet by mouth daily 90 tablet 1 ??? order for DME Equipment being ordered: CPAP Patient Ruddy Calhoun was set up at [facility] on May 25, 2015. Patient received a [...] TBD with LOIS Antonio. AKBAR CABRERA ??? triamterene-hydrochlorothiazide (DYAZIDE) 37.5-25 MG per capsule TAKE 1 CAPSULE BY MOUTH EVERY DAY 90 capsule 0 BP Readings from Last 3 Encounters: 03/12/18 100/60 11/27/17 126/77 06/11/17 128/70 Wt Readings from Last 3 Encounters: 03/12/18 107.1 kg (236 lb 1.6 oz) 11/27/17 108 kg (238 lb) 06/11/17 105.7 kg (233 lb) Reviewed and updated as needed this visit by clinical staff Tobacco Allergies Meds Reviewed and updated as needed this visit by Provider ROS: Constitutional, HEENT, cardiovascular, pulmonary, GI, , musculoskeletal, neuro, skin, endocrine and psych systems are negative, except as otherwise noted. This document serves as a record of the services and decisions personally performed and made by GaryL. Miguel Angel MD. It was created on his behalf by Amita Bingham, a trained medical assisting instructor. The creation of this document is based the provider's statements to the medical assisting instructor. 03/12/2018 OBJECTIVE: BP 100/60 Pulse 98 Temp 98.8 ??F (37.1 ??C) (Tympanic) Ht 1.67 m (5' 5.75) Wt 107.1 kg (236lb 1.6 oz) SpO2 95% BMI 38.4 kg/m2 Body mass index is 38.4 kg/(m^2). Left Hand: Pt was seen in [facility] after puncture wound involving the 3rd and 4th finger, reportedexcessive erythema and swelling has resolved, residual sluffing of the skin with minor dryness with no ope wounds, skin is normal color and texture Diagnostic Test Results: none ASSESSMENT/PLAN: 1. Cellulitis of finger of left hand, probable staph Resolving with treatment. Finish the Cephalexin Regimen. Start applying lotion to the affected area. 2. Essential hypertension Controlled with lisinopril-hydrochlorothiazide and Dyazide. 3. DIANNE (obstructive sleep apnea) 4. Idiopathic chronic gout of multiple sites without tophus Controlled with allopurinol 5. Vitamin D deficiency 6. Class 2 obesity due to excess calories without serious comorbidity with body mass index (BMI) of 35.0 to 35.9 in adult Continue with weight loss routine Juan José Michelle MD [facility] The information in this document, created by the medical assisting instructor for me, accurately reflects the services I personally performed and the decisions made by me. I have reviewed and approved this document for accuracy prior to leaving the patient care area. 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) Vitamin D deficiency Unspecified vitamin D deficiency Class 2 obesity due to excess calories w ithout serious comorbidity with body mass index (BMI) of 35.0 to 35.9 in adult documented in this encounter Care Teams Auto Technician Mechanic Relationship Specialty Start Date End Date Juan José Michelle MD PCP - General Internal Medicine 05/08/15 01/09/21 Juan José Michelle MD PCP - Assigned PCP 07/26/16 11/17/18 [address] [place] [phone] Juan José Michelle MD Assigned PCP 07/26/16 12/30/20 [address] [place] [phone] documented as of this encounter
--- OUTSIDE RECORDS SUMMARY | 2022-06-20 14:12 | XMS_ITS | Encounter Summary ---
:1945 Author Organization [facility] Address [address] [facility] [place] [address] Care Team Providers Name Role Phone Juan José Michelle MD Primary Care Provider Juan José Michelle MD Unavailable Juan José Michelle MD Unavailable Reason for Visit Reason Comments Medication Refill Allopurinol, Dyazide Encounter Details Date Type Department Care Team Description 09/07/2018 Refill [facility] Juan José Michelle MD Medication Refill [place] [address] [facility] [place] (Allopurinol, Dyazide) [address] [facility] [address] [facility] [place] [phone] (Wo rk) Social History Tobacco Use Types [...] Telephone Encounter - Julianna Aly RN - 09/10/2018 12:18 PM CST Allopurinol: Prescription approved per [facility] Refill Protocol. Dyazide: Routing refill request to provider for review/approval because: Do you want pt on both Triamterene Hydrochlorothiazide AND Lisinopril Hydrochlorothiazide? Julianna Garrett RN [facility] Telephone Encounter - Laurel James CMA - 09/09/2018 11:58 AM CST allopurinol (ZYLOPRIM) 300 MG tablet 90 tablet 0 06/16/2018 Last Written Prescription Date: 06/16/2018 Last Fill Quantity: 90, # refills: 0 triamterene-hydrochlorothiazide (DYAZIDE) 37.5-25 MG per capsule 90 capsule 0 06/16/2018 Last Written Prescription Date: 06/16/2018 Last Fill Quantity: 90, # refills: 0 Last office visit: 03/12/2018 with prescribing provider: Future Office Visit: Unknown Requested Prescriptions Pending Prescriptions Disp Refills ??? allopurinol (ZYLOPRIM) 300 MG tablet [Pharmacy Med Name: ALLOPURINOL 300 MG TABLET] 90 tablet 0 Sig: TAKE 1 TABLET BY MOUTH EVERY DAY Gout Agents Protocol Passed - 09/07/2018 5:18 PM Passed - CBC on file in past 12 months Recent Labs Lab Test 11/27/17 1040 WBC 10.5 RBC 5.20 HGB 15.4 HCT 48.6 PLT 199 Passed - ALT on file in past 12 months Recent Labs Lab Test 11/27/17 1040 ALT 58 Passed - Has Uric Acid on file [...] Labs Lab Test 11/27/17 1040 CR 1.06 ??? 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
--- OUTSIDE RECORDS SUMMARY | 2022-06-20 14:12 | XMS_ITS | Encounter Summary ---
:1945 Author Organization [facility] Address [address] [facility] [place] [address] Care Team Providers Name Role Phone Juan José Michelle MD Primary Care Provider Juan José Michelle MD Unavailable Juan José Michelle MD Unavailable Adonis Grullon PA-C Unavailable Adonis Grullon-C Unavailable Thomas Singleton MD Unavailable Thomas Singleton MD Primary Care Provider Ruddy Giron DPM Unavailable Juan José Michelle MD Unavailable Thomas Singleton MD Unavailable Thomas Giron MD Primary Care Provider Thomas Giron MD Unavailable Reason for Visit Reason Comments Medication Refill Encounter Details Date Type Department Care Team Description 07/02/2017 Refill [facility] Juan José Michelle MD Medication Refill [place] [address] [facility] [address] [facility], [address] [place] [address] [place] [address] [phone] Social History Tobacco Use Types Packs/Day Years [...] this encounter Miscellaneous Notes Telephone Encounter - Shima Skaggs RN - 07/02/2017 3:19 PM CDT Patient states he has been taking Allopurinol 300 mg daily for a long time. Rx pended for review and sign. 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) documented in this encounter Care Teams Dementia Program Director Relationship Specialty Start Date End Date Juan José Michelle MD PCP - General Internal Medicine 05/08/15 01/09/21 Juan José Michelle MD PCP - Assigned PCP 07/26/16 11/17/18 [address] [place] [address] Thomas Singleton MD PCP - General Internal Medicine 01/10/21 07/08/[address] [place] [phone] Thomas Giron MD PCP - General Internal Medicine 07/09/[address] [place] [address] Juan José Michelle MD Assigned PCP 07/26/16 12/30/[address] [place] [address] Adonis Grullon, Assigned Neuroscience 11/29/20 PA-C Provider [address] [place] [address] Adonis Grullon, Assigned Sleep Provider 11/29/20 02/24/21 PA-C [address] [place] [address] Thomas Singleton MD Assigned PCP 12/31/20 02/07/[address] [place] [address], [place] [phone] Ruddy Giron, Assigned Musculoskeletal 01/28/21 DPM Provider [address] [facility] [address] [place] [address] Juan José Michelle MD Assigned PCP 02/08/21 02/24/[address] [place] [address] Thomas Singleton MD Assigned PCP 02/25/21 06/23/[address] [place] [address], [place] [phone] Thomas Giron MD Assigned PCP 06/24/[address] [place] [address] documented as of this encounter
--- OUTSIDE RECORDS SUMMARY | 2022-06-20 14:12 | XMS_ITS | Encounter Summary ---
:1945 Author Organization [facility] Address [address] [place] [address] Care Team Providers Name Role Phone Juan José Michelle MD Primary Care Provider Juan José Michelle MD Unavailable Reason for Visit Auth/Cert Specialty Diagnoses / Procedures Referred By Contact Refer red To Contact Surgery Diagnoses Left torn rotator cuff Rh Periop Services Procedures COMBINED ARTHROSCOPY SHOULDER, OPEN ROTATOR CUFF REPAIR COMBINED ARTHROSCOPY SHOULDER, OPEN DISTAL CLAVICLE RESECTION [address] [place], [place] [phone] Phone: Fax: Referral ID Status Reason Start Date Expiration Date Visits Requ ested Visits Authorized [id number] 1 1 Encounter Details Date Type Department Care Team Description 12/09/2018 Surgery [facility] Mai Zuniga, Open left shoulder [facility] rotator cuff repair with [address] [facility] repair of supraspinatus, [place], [place] [facility] infraspinatus and teres [phone] minor. Distal clavicle [phone] [place] [address] excision and [phone] acromioplasty (Work) Surgery Details Date/Time Status Location OR Service Patient Case Case Traum a Class Class Type Case? 12/09/18 9:40 Posted OR OR Orthopedics Same Day AM Surgery Panel 1 Procedure [facility] Anes Op Region Wound Class Commen ts Open left shoulder rotator Left General with Block Shoulder I -Clean cuff repair with repair of supraspinatus, infraspinatus and teres minor. Distal clavicle excision and acromioplasty left shoulder distal clavicle Left General with Block Clavicle I-Clean excision Surgeon Surgeon Role Service Panel Mai Zuniga MD Primary Orthopedics 1 Marco Antonio Ledesma PA-C Orthopedics 1 Special Needs Ht 5'7, Wt 238#, [facility] requested preop documented in this encounter Social History Tobacco [...] Sign Reading Time Taken Comments Blood Pressure 115/82 12/09/2018 12:50 PM CDT Pulse 88 12/09/2018 12:50 PM CDT Temperature 36.1 ??C (97 ??F) 12/09/2018 12:08 PM CDT Respiratory Rate 20 12/09/2018 12:50 PM CDT Oxygen Saturation 95% 12/09/2018 12:50 PM CDT Inhaled Oxygen Concentration - - Weight - - Height - - Body Mass Index - - documented in this encounter Discharge Summaries Marco Antonio Ledesma PA-C - 12/09/2018 12:15 PM CDT Orthopedic Discharge Summary Patient: Alta Calhoun Admission Date: 12/09/2018 Discharge Date: 12/09/18 Date of Service: 12/09/2018 Attending Provider: Mai Zuniga MD Admission Diagnosis: Left torn rotator cuff Discharge Diagnosis: left torn rotator cuff/it was repaired. Procedures Performed: open rotator cuff repair Complications: None apparent History of Present Illness: see operative report for full HPI Past Medical History: Past Medical History: Diagnosis Date ??? Arthritis ??? HTN (hypertension) ??? Sleep apnea Patient Active Problem List Diagnosis ??? Essential [...] Obesity (BMI 35.0-39.9) with comorbidity (H) Past Surgical History: Procedure Laterality Date ??? COLON SURGERY Social History Socioeconomic History ??? Marital status: [...] Drug use: No ??? Sexual activity: No Partners: Female Lifestyle ??? Physical activity: Days per week: Not on file Minutes per session: Not on file ??? Stress: Not on file Relationships ??? Social connections: Talks on phone: Not on file Gets together: Not on file Attends methodist service: Not on file Active member of club or organization: Not on file Attends meetings of clubs or organizations: Not on file Relationship status: Not on file ??? Intimate partner violence: Fear of current or ex partner: Not on file Emotionally abused: Not on file Physically abused: Not on file Forced sexual activity: Not on file Other Topics Concern ??? Parent/sibling w/ CABG, NE or angioplasty before 65F 55M? Not Asked Social History Narrative ??? Not on file Medications on admission: Medications Prior to Admission Medication Sig Dispense Refill Last Dose ??? allopurinol (ZYLOPRIM) 300 MG tablet TAKE 1 TABLET BY MOUTH EVERY DAY 90 tablet 0 12/08/2018 at Unknown time ??? brimonidine-timolol (COMBIGAN) 0.2-0.5 % ophthalmic solution 1 drop 12/09/2018 at Unknown time ??? dorzolamide-timolol (COSOPT) 2-0.5 % ophthalmic solution INSTILL 1 DROP INTO BOTH EYES TWICE DAILY 2 12/08/2018 at Unknown time ??? lisinopril-hydrochlorothiazide (PRINZIDE/ZESTORETIC) 20-25 MG per tablet TAKE 1 TABLET BY MOUTH DAILY 90 tablet 1 12/08/2018 at Unknown time ??? triamterene-HCTZ (DYAZIDE) 37.5-25 MG capsule TAKE 1 CAPSULE BY MOUTH EVERY DAY 90 capsule 0 12/08/2018 at Unknown time ??? order for DME Equipment being ordered: CPAP Patient [facility] was set up at [facility] on May 25, 2015. Patient received a GreenPocket Airsense 10 Auto. Pressures were set at [...] on TBD with LOIS Antonio. AKBAR CABRERA Taking Allergies: No Known Allergies Hospital Course: Patient was admitted to Orthopedics and brought to the OR on where he underwent theabove named procedure. Postoperatively he did very well with no apparent complications. He was givenaspirin for DVT prophylaxis and his pain was well controlled with oral medications, then transitioned to oral pain medications during his hospital stay. Active Problems: * No active hospital problems. * Discharge Disposition: patient improving Discharge Diet: resume normal pre op diet Discharge Medications: Current Discharge Medication List START taking these medications Details aspirin (ASA) 325 MG EC tablet Take 1 tablet (325 mg) by mouth 2 times daily Qty: 60 tablet, Refills: 0 Associated Diagnoses: Rotator cuff disorder, left celecoxib (CELEBREX) 200 MG capsule Take 1 capsule (200 mg) by mouth daily Qty: 30 capsule, Refills: 0 Comments: Take after finishing the toradol regimen. Associated Diagnoses: Rotator cuff disorder, left cephALEXin (KEFLEX) 500 MG capsule Take 1 capsule (500 mg) by mouth 4 times daily for 3 days Qty: 12 capsule, Refills: 0 Associated Diagnoses: Rotator cuff disorder, left ketorolac (TORADOL) 10 MG tablet Take 1 tablet (10 mg) by mouth every 6 hours as needed for moderatepain Qty: 4 tablet, Refills: 0 Associated Diagnoses: Rotator cuff disorder, left ondansetron (ZOFRAN-ODT) 4 MG ODT tab Take 1 tablet (4 mg) by mouth every 30 minutes as needed for nausea or vomiting Qty: 30 tablet, Refills: 0 Associated Diagnoses: Rotator cuff disorder, left oxyCODONE (ROXICODONE) 5 MG tablet Take 1 tablet (5 mg) by mouth every 4 hours as needed for pain Qty: 30 tablet, Refills: 0 Associated Diagnoses: Rotator cuff disorder, left senna-docusate (SENOKOT-S/PERICOLACE) 8.6-50 MG tablet Take 1-2 tablets by mouth 2 times daily Qty: 30 tablet, Refills: 0 Associated Diagnoses: Rotator cuff disorder, left CONTINUE these medications which have NOT CHANGED Details allopurinol (ZYLOPRIM) 300 MG tablet TAKE 1 TABLET BY MOUTH EVERY DAY Qty: 90 tablet, Refills: 0 Associated Diagnoses: Idiopathic chronic gout of multiple sites without tophus brimonidine-timolol (COMBIGAN) 0.2-0.5 % ophthalmic solution 1 drop dorzolamide-timolol (COSOPT) 2-0.5 % ophthalmic solution INSTILL 1 DROP INTO BOTH EYES TWICE DAILY Refills: 2 lisinopril-hydrochlorothiazide (PRINZIDE/ZESTORETIC) 20-25 MG per tablet TAKE 1 TABLET BY MOUTH DAILY Qty: 90 tablet, Refills: 1 Associated Diagnoses: Benign essential hypertension triamterene-HCTZ (DYAZIDE) 37.5-25 MG capsule TAKE 1 CAPSULE BY MOUTH EVERY DAY Qty: 90 capsule, Refills: 0 Associated Diagnoses: Benign essential hypertension order for DME Equipment being ordered: CPAP Patient Alta Calhoun was set up at [facility] on May 25, 2015. Patient received a GreenPocket Airsense 10 Auto. Pressures were set at [...] has a follow up on TBD with PA. Marisela AKBAR RICK Code Status: X-rays needed at the follow up visit: none Patient will be in a sling for 8 weeks due to size of the rotator cuff repair. Marco Antonio Ledesma PA-C 12/09/2018 12:15 PM OSORIO Travis [phone] documented in this encounter Discharge Instructions Discharge InstructionsNusrat Steiner RN - 12/09/2018 2:13 PM CDT GENERAL ANESTHESIA OR SEDATION ADULT DISCHARGE INSTRUCTIONS SPECIAL PRECAUTIONS FOR 24 HOURS AFTER SURGERY IT IS NOT UNUSUAL TO FEEL LIGHT-HEADED OR FAINT, UP TO 24 HOURS AFTER SURGERY OR WHILE TAKING PAIN MEDICATION. IF YOU HAVE THESE SYMPTOMS; SIT FOR A FEW MINUTES BEFORE STANDING AND HAVE SOMEONE ASSIST YOU WHEN YOU GET UP TO WALK OR USE THE BATHROOM. YOU SHOULD REST AND RELAX FOR THE NEXT 24 HOURS AND YOU MUST MAKE ARRANGEMENTS TO HAVE SOMEONE STAY WITH YOU FOR AT LEAST 24 HOURS AFTER YOUR DISCHARGE. AVOID HAZARDOUS AND STRENUOUS ACTIVITIES. DO NOTMAKE IMPORTANT DECISIONS FOR [address] ANY VEHICLE OR OPERATE MECHANICAL EQUIPMENT FOR 24 HOURS FOLLOWING THE END OF YOUR SURGERY. EVEN THOUGH YOU MAY FEEL NORMAL, YOUR REACTIONS MAY BE AFFECTED BY THE MEDICATION YOU HAVE RECEIVED. DO NOT DRINK ALCOHOLIC BEVERAGES FOR 24 HOURS FOLLOWING YOUR SURGERY. DRINK CLEAR LIQUIDS (APPLE JUICE, NAFISA MANUELITO, 7-UP, BROTH, ETC.). PROGRESS TO YOUR REGULAR DIET YOU FEEL ABLE. YOU MAY HAVE A DRY MOUTH, A SORE THROAT, MUSCLES ACHES OR TROUBLE SLEEPING. THESE SHOULD GO AWAY AFTER 24 HOURS. CALL YOUR DOCTOR FOR ANY OF THE FOLLOWING: SIGNS OF INFECTION (FEVER, GROWING TENDERNESS AT THE SURGERY SITE, A LARGE AMOUNT OF DRAINAGE OR BLEEDING, SEVERE PAIN, FOUL-SMELLING DRAINAGE, REDNESS OR SWELLING. IT HAS BEEN OVER 8 TO 10 HOURS SINCE SURGERY AND YOU ARE STILL NOT ABLE TO URINATE (PASS WATER). SHOULDER SURGERY DISCHARGE INSTRUCTIONS Following these home instructions will aid the healing process, prevent complications and increase your comfort following your surgery. 1. Keep the dressing clean and dry until the time that your physician has instructed you to remove it. 2. Ice the shoulder over the next 24 - 48 hours and then as needed for comfort. 3. Wear the sling until the day after surgery and then follow your physician???s recommendations regarding use of the sling. 4. Remain quiet and restful the day of surgery. Resume normal activities gradually over the next dayor so as advised by your physician. 5. Exercise your arm only as instructed by your physician. Please notify your doctor of any of the followin. Fever greater than 101 degrees 2. Excessive drainage or bleeding 3. Blue discoloration of the fingers or they are cold to the touch 4. Severe pain not relieved by your pain medication 5. Drainage that is green, yellow, thick white, or has a bad odor HOME CARE INSTRUCTIONS AFTER REGIONAL ANESTHESIA To do your surgical procedure, your doctor used regional anesthesia to ???numb?? your arm, leg, or foot. This type of anesthesia will not be completely worn off for 4-24 hours. You should be careful during this time not to injure your extremity. As the anesthetic wears off, you may have a tingling and prickly sensation as the feeling starts to return. The amount of discomfort you may feel is unpredictable. Use your pain medication as prescribed or advised by your doctor. 1. Wear a sling until your arm is completely ???awake?? . 2. Use crutches until your leg is ???awake?? . 3. Avoid striking or bumping your arm, leg, or foot while it is numb. 4. Avoid extremes of hot or cold while it is numb. 5. Remain quiet and restful the day of surgery. Resume normal activities gradually over the next dayor so as advised by your doctor. 6. Do not drive or operate any machinery until your extremity is fully ???awake?? . Please notify your doctor of any of the followin. There is excessive bleeding or drainage. 2. There is increased swelling of the extremity making the dressing too tight, and this is not relieved by elevating extremity. 3. There is blue coloring to fingers/toes or they are cold to touch. 4. There is severe pain not relieved by your pain medication. 5. There is any numbness or tingling of the extremity the following day. documented in this encounter Medications at Time of Discharge Medication Sig Dispensed Refills Start Date End Date dorzolamide-timolol INSTILL 1 DROP INTO 2 019 (COSOPT) 2-0.5 % BOTH EYES TWICE ophthalmic solution DAILY order for DME Equipment being ordered: CPAP 0 Patient [facility] was set up at [facility] on May 25, 2015. Patient received a Resmed Airsense 10 Auto. Pressures were set at Auto 5 - 15 cm H2O. Patient? s ramp is 0 cm H2O for Off and FLEX/EPR is A Flex 2. Patient receiv ed a [facility] Mask name: Simplus Full Face mask Size Medium, heated tubing and heated humidifier. Patient is enrolled in the [facility] Program and does need to meet comp liance. Patient has a follow up on TBD with LOIS Antonio. AKBAR RICK allopurinol (ZYLOPRIM) TAKE 1 TABLET BY 90 tablet 1 019 06/09/2019 300 MG MOUTH EVERY DAY tabletIndications: Idiopathic chronic gout of multiple sites without tophus aspirin (ASA) 325 MG EC Take 1 tablet (325 60 tablet 0 11/1401/26/2019 tabletIndications: mg) by mouth 2 times Rotator cuff disorder, daily left brimonidine-timolol 1 drop 0 01/28/201311/13 (COMBIGAN) 0.2-0.5 % ophthalmic solution celecoxib (CELEBREX) 200 Take 1 capsule (200 30 capsule 0 01/26/2019 MG capsuleIndications: mg) by mouth daily Rotator cuff disorder, left cephALEXin (KEFLEX) 500 Take 1 capsule (500 12 capsule 0 01/26/2019 MG capsuleIndications: mg) by mouth 4 times Rotator cuff disorder, daily for 3 days left ketorolac (TORADOL) 10 Take 1 tablet (10 4 tablet 0 201801/26/2019 MG tabletIndications: mg) by mouth every 6 Rotator cuff disorder, hours as needed for left moderate pain lisinopril-hydrochloroth TAKE 1 TABLET BY 90 tablet 1 06/2511/13/2020 iazide MOUTH DAILY (PRINZIDE/ZESTORETIC) 20-25 MG per tabletIndications: Benign essential hypertension ondansetron (ZOFRAN-ODT) Take 1 tablet (4 mg) 30 tablet 0 0 12/09/2018 01/26/2019 4 MG ODT tabIndications: by mouth every 30 Rotator cuff disorder, minutes as needed left for nausea or vomiting oxyCODONE (ROXICODONE) 5 Take 1 tablet (5 mg) 30 tablet 0 0 12/09/2018 01/26/2019 MG tabletIndications: by mouth every 4 Rotator cuff disorder, hours as needed for left pain senna-docusate Take 1-2 tablets by 30 tablet 0 12/09/2018 0 01/26/2019 (SENOKOT-S/PERICOLACE) mouth 2 times daily 8.6-50 MG tabletIndications: Rotator cuff disorder, left triamterene-HCTZ TAKE 1 CAPSULE BY 90 capsule 0 12/10/2018 0 03/11/2019 (DYAZIDE) 37.5-25 MG MOUTH EVERY DAY capsuleIndications: Benign essential hypertension documented as of this encounter Progress Notes Mat Lehman - 12/09/2018 9:35 AM CDT [facility] Progress Note FR Pre-Op Saw pt Alta Calhoun per his request for die turner support before his procedure. His spouse Marilou lira. Brayan reported that he is having surgery on his rotator cuff after an injury from a fall. His Anabaptist alexis plays a significant role in his life, and he and Marilou are affiliated with [facility]. Brayan requested prayer, which was provided. Informed them how they can request further die turner support once Brayan is admitted to the floor. No further plans; this author and other chaplains remain available per pt/family request. Mat Lehman M.Div., [facility] Staff Hazardous Material Technician Pager [phone] documented in this encounter Miscellaneous Notes Op Note - Mai Zuniga MD - 12/09/2018 12:02 PM CDT Procedure Date: 12/09/2018 PREOPERATIVE DIAGNOSIS: Massive rotator cuff tear, left shoulder with acromioclavicular joint arthritis. POSTOPERATIVE DIAGNOSIS: Massive rotator cuff tear, left shoulder with acromioclavicular joint arthritis. PROCEDURE: Open left shoulder rotator cuff repair with repair of supraspinatus, infraspinatus and teres minor. Distal clavicle excision and acromioplasty. INDICATIONS FOR PROCEDURE: The patient is a 73-year-old male who fell approximately 3 weeks ago and sustained a left shoulder dislocation that was treated in a local emergency room with reduction. I saw the patient in consultation and his exam was consistent with a rotator cuff tear. An MRI was obtained which confirmed the presence of a 3 tendon rotator cuff tear. There is no evidence of fracture. Chondral surfaces of the glenoid and the humeral head appeared to be intact. There was a nondisplaced impaction of the inferior glenoid consistent with a nondisplaced bony Bankart. I discussed treatment op tions with the patient and explained to him the risks, benefits, potential complications of the above stated procedure. This discussion included but not specific to infection, vascular neurologic complications, DVT, retear, chronic pain, arthrofibrosis and the possible need for further revision surgery. After this discussion, the patient wanted to proceed with surgery. ANESTHESIA: General. SURGEON: Mai Zuniga MD MANUFACTURING ENGINEER ASSEMBLY: Dipak Ledesma PA-C DESCRIPTION OF PROCEDURE: The patient was taken to the operating room and placed on the operative table in supine position. After adequate induction of a general anesthetic, placed in the beach chair position. His head and neck were stabilized in neutral fashion. The patient was given 2 grams of Anceffor infection prophylaxis given 1 hour prior to incision. We then performed a sterile prep and drapeof the left shoulder and left upper extremity. After sterile prep and drape, the area of skin incision was injected using 0.5% Marcaine with epinephrine. I then proceeded to make an incision starting at the AC joint and extending distally and laterally for a distance of approximately 8 cm. I then dissected down to the clavipectoral fascia, identified the AC joint and took down the AC joint and the anterior deltoid off the anterior acromion, keeping a cuff of tissue for later repair. I then did a distal clavicle excision and acromioplasty. We were then able to mobilize the rotator cuff tear. The tear involved the supraspinatus, infraspinatus and teres minor and superior portion of the subscapularis. I was able to mobilize the tear. The chondral surfaces were intact. I then proceeded with a double row repair with 3-0 suture anchors medially and 2 suture anchors laterally. Once the sutures were passed, we then placed the sutures through the lateral suture anchors. This allowed for an anatomic repair with rigid fixation. I then took the shoulder through a range of motion and the repair was rigid. We then irrigated using a liter of normal saline and repaired the deltoid and the AC joint using #1 Ethibond sutures. The deep subQ was closed using 0 Vicryl, subcutaneous was closed with 2-0 Vicryl, skin was closed with a running 3-0 Monocryl subcuticular stitch followed by benzoin, Steri-Strips and sterile dressing. A shoulder immobilizer was applied. The patient tolerated the operative procedure. There were no intraoperative complications. The patient [facility] to [facility] in stable condition. PLAN: The patient will be sent home with Keflex for 3 days for infection prophylaxis and aspirin 30 days for DVT prophylaxis and oxycodone for pain. MAI ZUNIGA MD MT: YU Name: ALTA CALHOUN MRN: [id number] Account: [id number] : 1945 Procedure Date: 12/09/2018 Document: [id number] documented in this encounter Plan of Treatment Not on filedocumented as of this encounter Procedures Procedure Name Priority Date/Time Associated Diagnosis Comme nts EXCISION, CLAVICLE, 12/09/2018 9:37 AM CDT Left torn r otator cuff DISTAL Special Needs Ht 5'7, Wt 238#, per [facility] Hazardous Material Technician requested preop ARTHROTOMY, SHOULDER, WITH ROTATOR 12/09/2018 9: 37 AM CDT Left torn rotator cuff CUFF REPAIR Special Needs Ht 5'7, Wt 238#, per H[facility] p[facility] Hazardous Material Technician requested preop documented in this encounter Visit Diagnoses Not on filedocumented in this encounter Administered Medications Inactive Administered Medications - up to 3 most recent administrations Medication Order MAR Action Action Date Dose Rate Site bupivacaine 0.5 % - Given 12/09/2018 11:56 10 mLs Operative EPINEPHrine 1:200,000 AM CDT Sit e/Surgical Site injection PRN, Starting on Fri12/09/18 at 1156, Intra-procedure dimenhyDRINATE (DRAMAMINE) injection 25 mg 25 mg, Intravenous, ONCE PRN, other, jenifer sea, Starting on Fri12/09/18 at 1157, For 1 dose, Dilute in 10 ml 0.9% Sodium chloride., PACU/Phas e II fentaNYL (PF) (SUBLIMAZE) injection 25-5 0 mcg 25-50 mcg, Intravenous, EVERY 15 MIN PRN, other, acute pain while in Phase II, Starting on Fri12/09/18 at 1157, Indicat ions: Sedated State, MAX cumulative dose = 250 mcg. Use Fentanyl initially, as a sh ort acting agent for acute pain control. If insufficient, or a longer acting agent i s needed, begin Morphine or Hydromorphone if ordered. For ordered IV doses 1-100 m cg give IV Push undiluted over a minimum of 3-5 minutes., Phase ll HYDROmorphone (DILAUDID) injection 0.3-0 .5 mg 0.3-0.5 mg, Intravenous, EVERY 10 MIN MO N, other, acute pain.?May administer if Respiratory Rate is greater than 10, Sta rting on Fri12/09/18 at 1157, If fentanyl is also ordered, use HYDROmorphone if pa in control insufficient with fentanyl or a longer acting agent is needed. Max cumulative dose = 2 mg, PACU/Phase II lactated ringers infusion at 100 mL/hr, Intravenous, CONTINUOUS, Continue until IV catheter is weaned, PACU/Phase II, Starting on Fri12/09/18 at 1200, Until Fri12/09/18 at 1741 meperidine (DEMEROL) injection 12.5 mg 12.5 mg, Intravenous, EVERY 15 MIN PRN, post anesthesia shivering, Starting on Fri12/09/18 at 1157, For 2 doses, Give IV Pu sh undiluted. 10-40 mg over 2-3 minutes, up to 125 mg over 3-15 minutes, PACU/Phase II naloxone (NARCAN) injection 0.1-0.4 mg 0.1-0.4 mg, Intravenous, EVERY 2 MIN PRN , opioid reversal, Starting on Fri12/09/18 at 1157, For 24 hours, For apnea or imminent respirato ry arrest: give 0.4 mg IV undiluted Q 2 minutes PRN until desired degree of reversal is obtained, stop opioid and notify provider. Continue monitoring until dischar ge are criteria met for a minimum of 2 hours. For severe sedation, decrease in respiratory depth, quality or Respiratory Rate greater than 8: give 0. 1 mg IV Q 2 minutes x 3 doses, stop opioid and notify provider. Try to minimize reversal of analg esia especially in end-of-life patients. Continue monitorin g until discharge criteria are met for a minimum of 2 hours. For ordered IV doses 0.1-2mg give IVP. Give each 0.4mg over 15 seconds in emergency situations. For non -emergent situations further dilute in 9mL of NS to facilitate titration of response., PACU/Phase II ondansetron (ZOFRAN) injection 4 mg 4 mg, Intravenous, EVERY 30 MIN PRN, jenifer sea, vomiting, Administer over 2-5 Minutes, Starting on Fri12/09/18 at 1157, For 2 d oses, MAX total dose = 8 mg, including OR dosing. This is step 1 of nausea and vomiting manageme nt. If not resolved in 15 minutes, then go to step 2 [prochlorpera zine (COMPAZINE) if ordered]. Irritant. For ordered IV doses 0.1-4 mg, give IV Push undiluted over 2-5 minutes., PACU/Phase II ondansetron (ZOFRAN-ODT) ODT tab 4 mg 4 mg, Oral, EVERY 30 MIN PRN, nausea, vo miting, Starting on Fri12/09/18 at 1157, For 2 doses, MAX total dose = 8 mg, incl uding OR dosing. This is step 1 of nausea and vomiting management. If not resolved in 15 minutes , then go to step 2 [prochlorperazine (COMPAZINE) if ordered ]. With dry hands, peel back foil backing and gently remove tablet; do not push oral disintegrat ing tablet through foil backing; administer immediately on tongu e and oral disintegrating tablet dissolves in seconds; then swallow with saliva; liquid not requi red., PACU/Phase II ORAL Pain Medications - may administer a s ordered by surgeon for take home use CONTINUOUS PRN, Starting on Fri12/09/18 at 1157, Until Fri12/09/18 at 1741, May administer oral pain medications as ordered by surgeon for take home use. Discontinue IV pain medication prior to administration of oral pain medication., PACU/Phase II sodium chloride 0.9% Given 12/09/2018 11:56 AM 400 mLs Operative Site/Surgical (bottle) irrigation CDT Site PRN, Starting on Fri12/09/18 at 1156, Intra-procedure documented in this encounter Active and Recently Administered Medications Times are shown in CDT. Scheduled Medication Order 12/07/2018 12/08/2018 12/09/2018 ceFAZolin (ANCEF) intermittent infusion 2 g in 100 mL dextrose PRE-MIX (COMPLETED) 0956 (Given - Provid er: Alta Hess APRN CRNA) 2 g, Intravenous, PRE-OP/PRE-PROCEDURE, Starting Fri12/09/18 at 0845, For 1 dose, Give first dose within 1 hour PRIOR to incision. If patient weight is greater than or equal to 120 kg increase dose to 3 g., Indications: Perioperative Pharmacoprophylaxis, Pre-procedu re Continuous Medication Order 12/07/2018 12/08/2018 12/09/2018 lactated ringers infusion (CANCELED) 0903 (New Bag - Provider: Alta Hess APRN CRNA)1049 (New Bag - Provider: Alta Hess APRN CRNA)1117 (Anesthesia Volume Adjustment - Provider: Alta Hess APRN CRNA)1155 (Anesthesia Volume Adjustment - Provider: Alta Hess APRN CRNA) at 25 mL/hr, Intravenous, CONTINUOUS, IF patient NOT on dialysis., Pre- procedure, Starting Fri12/09/18 at 0900, Until Fri12/09/18 at 1208 lactated ringers infusion 1200 ( Canceled Entry - Provider: Herman Generic Provider - Comment: Automatically canceled at discontinue of medication order) at 100 mL/hr, Intravenous, CONTINUOUS, C ontinue until IV catheter is weaned, PACU/Phase II, Starting Fri12/09/18 at 1200, Until Fri12/09/18 at 1741 PRN Medication Order 12/07/2018 12/08/2018 12/09/2018 bupivacaine 0.5 % - EPINEPHrine 1:200,000 injection (CANCELED) 1156 (Given - Provider: Mai Zuniga MD) PRN, Starting Fri12/09/18 at 1156, Intra-procedure dimenhyDRINATE (DRAMAMINE) injection 25 mg 25 mg, Intravenous, ONCE PRN, other, jenifer sea, Starting Fri12/09/18 at 1157, For 1 dose, Dilute in 10 ml 0.9% Sodium chloride., PACU/Phase II fentaNYL (PF) (SUBLIMAZE) injection 25-50 mcg 25-50 mcg, Intravenous, EVERY 15 MIN PRN , Starting Fri12/09/18 at 1157, other, acute pain while in Phase II, MAX cumulative dose = 250 mcg. Use Fentanyl initially, as a short acting agent for acute pain control. If insufficient, or a longer a cting agent is needed, begin Morphine or Hydromorphone if ordered. For ordered IV doses 1-100 mcg give IV Push undiluted over a minimum of 3-5 minutes., Phase ll HYDROmorphone (DILAUDID) injection 0.3-0.5 mg 0.3-0.5 mg, Intravenous, EVERY 10 MIN MO N, Starting Fri12/09/18 at 1157, Until Fri12/09/18 at 1741, other, acute pain.?May administer if Respiratory Rate is greater than 10, PACU/Phase II, If fentany l is also ordered, use HYDROmorphone if pain control insufficient with fentanyl or a longer acting agent is needed. Max cumulative dose = 2 mg meperidine (DEMEROL) injection 12.5 mg 12.5 mg, Intravenous, EVERY 15 MIN PRN, 2 doses, Starting Fri12/09/18 at 1157, Until Fri12/09/18 at 1741, post anesthesia shivering, PACU/Phase II, Give IV Push undiluted. 10-40 mg over 2-3 minutes, up to 125 mg over 3-15 minutes naloxone (NARCAN) injection 0.1-0.4 mg 0.1-0.4 mg, Intravenous, EVERY 2 MIN PRN , opioid reversal, Starting Fri12/09/18 at 1157, For 24 hours, For apnea or imminent respiratory arrest: give 0.4 mg IV undiluted Q 2 minutes PRN until desired de gree of reversal is obtained, stop opioi d and notify provider. Continue monitoring until discharge are criteria met for a minimum of 2 hours. For severe sedation, decrease in respiratory depth, quality or Respiratory Rate greater than 8: give 0.1 mg IV Q 2 minutes x 3 doses, stop opioid and notify provider. Try to minimize reversal of analgesia especially in end-of-life patients. Continue monitoring u ntil discharge criteria are met for a mi nimum of 2 hours. For ordered IV doses 0.1-2mg give IVP. Give each 0.4mg over 15 seconds in emergency situations. For non-emergent situations further dilute in 9m L of NS to facilitate titration of response., PACU/Phase II ondansetron (ZOFRAN) injection 4 mg(Linked Group 1) 4 mg, Intravenous, EVERY 30 MIN PRN, jenifer sea, vomiting, Administer over 2-5 Minutes, Starting 12/09/18 at 1157, For 2 doses, MAX total dose = 8 mg, including OR dosing. This is step 1 of nausea and vo miting management. If not resolved in 15 minutes, then go to step 2 [prochlorperazine (COMPAZINE) if ordered]. Irritant. For ordered IV doses 0.1-4 mg, give IV Push undiluted over 2-5 minutes., PACU/Phase II ondansetron (ZOFRAN-ODT) ODT tab 4 mg(Linked Group 1) 4 mg, Oral, EVERY 30 MIN PRN, nausea, vo miting, Starting 12/09/18 at 1157, For 2 doses, MAX total dose = 8 mg, including OR dosing. This is step 1 of nausea and vomiting management. If not resolved i n 15 minutes, then go to step 2 [prochlo rperazine (COMPAZINE) if ordered]. With dry hands, peel back foil backing and gently remove tablet; do not push oral disintegrating tablet through foil backing; a dminister immediately on tongue and oral disintegrating tablet dissolves in seconds; then swallow with saliva; liquid not required., PACU/Phase II ondansetron (ZOFRAN-ODT) ODT tab 4 mg 4 mg, Oral, ONCE PRN, nausea, vomiting, post-operative, Starting Fri12/09/18 at 1216, For 1 dose, One time prior to discharge. With dry hands, peel back foil backing and gently remove tablet; do not pus h oral disintegrating tablet through foi l backing; administer immediately on tongue and oral disintegrating tablet dissolves in seconds; then swallow with saliva; liquid not required., Post-procedure ORAL Pain Medications - may administer as ordered by surgeon for take home use CONTINUOUS PRN, Starting Fri12/09/18 at 1157, Until Fri12/09/18 at 1741, May administer oral pain medications as ordered by surgeon for take home use. Discontinue IV pain medication prior to administration of oral pain medication., PACU/Phase II oxyCODONE (ROXICODONE) tablet 10 mg 10 mg, Oral, ONCE PRN, other, pain contr ol or improvement in physical function.??, Starting Fri12/09/18 at 1216, For 1 dose, Notify provider to assess for uncontrolled pain or analgesic side effects., Post-procedure sodium chloride 0.9% (bottle) irrigation (CANCELED) 1156 (Given - Provider: Mai Zuniga MD) PRN, Starting Fri12/09/18 at 1156, Intra-procedure Linked Groups Order Group 1: ondansetron (ZOFRAN-ODT) ODT tab 4 mgJump to med 4 mg, Oral, EVERY 30 MIN PRN, nausea, vo miting, Starting Fri12/09/18 at 1157, For 2 doses
MAX total dose = 8 mg, including OR dosing. This is step 1 of nausea and vomiting management. If not resolved in 15 minutes, the n go to step 2 [prochlorperazine (COMPAZINE) if ordered]. With dry hands, peel back foil backing and gently remove tablet; do not push oral disintegr ating tablet through foil backing; admin ister immediately on tongue and oral disintegrating tablet dissolves in seconds; then swallow with saliva; liquid not required.
PACU/Phase II Or ondansetron (ZOFRAN) injection 4 mgJump to med 4 mg, Intravenous, EVERY 30 MIN PRN, jenifer sea, vomiting, Administer over 2-5 Minutes, Starting 12/09/18 at 1157, For 2 doses
MAX total dose = 8 mg, including OR dosing. This is step 1 of nause a and vomiting management. If not resolved in 15 minutes, then go to step 2 [prochlorperazine (COMPAZINE) if ordered]. Irritant. For ordered IV doses 0.1-4 mg, give IV Push undiluted over 2-5 minutes.
PACU/Phase II documented in this encounter Care Teams Demographic Analyst Relationship Specialty Start Date End Date Juan José Michelle MD PCP - General Internal Medicine 05/08/15 01/09/21 Juan José Michelle MD Assigned PCP 07/26/16 12/30/20 [address] [place], [place] [id number] documented as of this encounter
--- OUTSIDE RECORDS SUMMARY | 2022-06-20 14:12 | XMS_ITS | Encounter Summary ---
:1945 Author Organization [facility] Address [address] [place] [address] Care Team Providers Name Role Phone Juan José Michelle MD Primary Care Provider Juan José Michelle MD Unavailable Juan José Michelle MD Unavailable Reason for Visit Reason Onset Date Comments requesting call 02/04/2018 Encounter Details Date Type Department Care Team Description 02/04/2018 Telephone [facility] Juan José Michelle MD requesting call [place] [address] [facility] [address] [facility] [place] [address] [place] [address] [phone] Social History Tobacco Use Types Packs/Day Years [...] with No / Unsure 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 documented as of this encounter Miscellaneous Notes Telephone Encounter - Rose Huang - 02/04/2018 2:13 PM CDT Reason for Call: Other call back Detailed comments: Patient is asking for a call back from Dr Michelle, He was not specific as to whatit is regarding. Phone Number Patient can be reached at: Home number on file [phone] (home) Best Time: any Can we leave a detailed message on this number? YES Call taken on 02/04/2018 at 2:13 PM by Rose Huang documented in this encounter Plan of Treatment Not on filedocumented as of this encounter Visit Diagnoses Not on filedocumented in this encounter Care Teams Tribal Judge Relationship Specialty Start Date End Date Juan José Michelle MD PCP - General Internal Medicine 05/08/15 01/09/21 Juan José Michelle MD PCP - Assigned PCP 07/26/16 11/17/18 [address] [place] [phone] Juan José Michelle MD Assigned PCP 07/26/16 12/30/20 [address] [place] [id number] documented as of this encounter
--- OUTSIDE RECORDS SUMMARY | 2022-06-20 14:12 | XMS_ITS | Encounter Summary ---
:1945 Author Organization [facility] Address [address] 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; [address], [address] Seborrheic keratosis, inflamed; [place] [id number] [place] Encounter for routine adult health examination without abnormal findings; [phone] Screening for prostate cancer; [phone] Class 2 obesity due to excess calories without serious comorbidity with body mass index (BMI) of 35.0 to 35.9 in adult; (Work) Hyperlipidemia LDL goal <130; [phone] Vitamin D defic iency; (Fax) Fatigue, unspec ified type Social History Tobacco Use Types Packs/Day Years [...] Sign Reading Time Taken Comments Blood Pressure 126/77 11/27/2017 9:13 AM CDT Pulse 76 11/27/2017 9:13 AM CDT Temperature 36.3 ??C (97.3 ??F) 11/27/2017 9:13 AM CDT Respiratory Rate 18 11/27/2017 9:13 AM CDT Oxygen Saturation 98% 11/27/2017 9:13 AM CDT Inhaled Oxygen Concentration - - Weight 108 kg (238 lb) 11/27/2017 9:13 AM CDT Height 167 cm (5' 5.75) 11/27/2017 9:13 AM CDT Body Mass Index 38.71 11/27/2017 9:13 AM CDT documented in this encounter Patient Instructions Patient Abimbola Cleary, WIND TUNNEL TECHNICIAN - 11/27/2017 8:57 AM CDT Preventive Health Recommendations: Male Ages 65 and over Yearly exam: ?? See your health care provider every year in order to o Review health changes. o Discuss preventive care. o Review your medicines if your doctor has prescribed any. ??? Talk with your health care provider about whether you should have a test to screen for prostate cancer (PSA). ??? Every 3 years, have a diabetes test (fasting glucose). If you are at risk for diabetes, you should have this test more often. ??? Every 5 years, have a cholesterol test. Have this test more often if you are at risk for high cholesterol or heart disease. ??? Every 10 years, have a colonoscopy. Or, have a yearly FIT test (stool test). These exams will check for colon cancer. ??? Talk to with your health care provider about screening for Abdominal Aortic Aneurysm if you havea family history of AAA or have a history of smoking. Shots: ??? Get a flu shot each year. ??? Get a tetanus shot every 10 years. ??? Talk to your doctor about your pneumonia vaccines. There are now two you should receive - Pneumovax (PPSV 23) and Prevnar (PCV 13). ??? Talk to your doctor about a shingles vaccine. ??? Talk to your doctor about the hepatitis B vaccine. Nutrition: ??? Eat at least 5 servings of fruits and vegetables each day. ??? Eat whole-grain bread, whole-wheat pasta and brown rice instead of white grains and rice. ??? Talk to your doctor about Calcium and Vitamin D. Lifestyle ??? Exercise for at least 150 minutes a week (30 minutes a day, 5 days a week). This will help you control your weight and prevent disease. ??? Limit alcohol to one drink per day. ??? No smoking. ??? Wear sunscreen to prevent skin cancer. ??? See your dentist every six months for an exam and cleaning. ??? See your eye doctor every 1 to 2 years to screen for conditions such as glaucoma, macular degeneration and cataracts. documented in this encounter Progress Notes Abimbola Sharpe CMA - 11/27/2017 8:57 AM CDT SUBJECTIVE: Ruddy Calhoun is a 72 year old male who presents for Preventive Visit. Are you in the first 12 months of your Medicare Part B coverage? No Healthy Habits: ?? Do you get at least three servings of calcium containing foods daily (dairy, green leafy vegetables, etc.)? yes ?? Amount of exercise or daily activities, outside of work: 2 day(s) per week ?? Problems taking medications regularly No ?? Medication side effects: No ?? Have you had an eye exam in the past two years? yes ?? Do you see a dentist twice per year? no ?? Do you have sleep apnea, excessive snoring or daytime drowsiness?yes ?? Ability to successfully perform activities of daily living: Yes, no assistance needed ?? Home safety: none identified ?? Hearing impairment: No ?? Fall risk: Fallen 2 or more times in the past year?: No Any fall with injury in the past year?: No COGNITIVE SCREEN 1) Repeat 3 items (Banana, [place], Chair) 2) Clock draw: NORMAL 3) 3 item recall: Recalls 3 objects Results: 3 items recalled: COGNITIVE IMPAIRMENT LESS LIKELY Mini-CogTM Copyright S Alicia. Licensed by the author for use in [facility]; reprintedwith permission (brad@[email or web address]). All rights reserved. Patient presents to the clinic for a wellness visit. He reports that his diet isn't going very well.He isn't doing well with cutting sugars from his diet. He has no concerns with his health at this point and is working on fine tuning his diet. Patient had a FIT test 05/15/2017 and was negative. He denies any headache, sinus issues, neck or back issues, dyspnea, angina, palpitations, racing heartbeats, heartburn, acid indigestion, diarrhea, constipation, hematochezia, urinary difficulties, and skin changes. He affirms to vision changes, his night driving is a problem due to problems judging distance at night. He is walking more for exercises as well as doing forearm curls. When he goes walking he claims his feet are fine, but his hips become sore and he has to sit to rest. He has nocturia 1x. Reviewed and updated as needed this visit by clinical staff Tobacco Allergies Meds Med Hx Surg Hx Fam Hx Soc Hx Reviewed and updated as needed this visit by Provider Social History Substance Use Topics ??? Smoking status: Former Smoker Types: Cigars ??? Smokeless tobacco: Never Used ??? Alcohol use No Comment: not for about 35 years (as of 2014) If you drink alcohol do you typically have >3 drinks per day or >7 drinks per week? No Today's PHQ-2 Score: PHQ-2 (??1999 Pfizer) 11/27/2017 05/12/2017 Q1: Little interest or pleasure in doing things 0 0 Q2: Feeling down, depressed or hopeless 0 0 PHQ-2 Score 0 0 Do you feel safe in your environment - Yes Do you have a Health Care Directive?: Yes: Advance Directive has been received and scanned. Current providers sharing in care for this patient include: Patient Care Team: Juan José Michelle MD as PCP - General (Internal Medicine) The following health maintenance items are reviewed in Epic and correct as of today: Health Maintenance Topic Date Due ??? HEPATITIS C SCREENING 1964 ??? COLON CANCER SCREEN (SYSTEM ASSIGNED) 1996 ??? ADVANCE DIRECTIVE PLANNING Q5 YRS 2001 ??? AORTIC ANEURYSM SCREENING (SYSTEM ASSIGNED) 2011 ??? FALL RISK ASSESSMENT 11/05/2017 ??? INFLUENZA VACCINE (SYSTEM ASSIGNED) 05/16/2018 ??? LIPID SCREEN Q5 YR MALE (SYSTEM ASSIGNED) 11/05/2021 ??? TETANUS IMMUNIZATION (SYSTEM ASSIGNED) 09/20/2024 ??? PNEUMOCOCCAL Completed Current Outpatient Prescriptions Medication Sig Dispense Refill ??? lisinopril-hydrochlorothiazide (PRINZIDE/ZESTORETIC) 20-25 MG per tablet RTS 10/22 TAKE 1 TABLETBY MOUTH EVERY DAY 90 tablet 1 ??? allopurinol (ZYLOPRIM) 300 MG tablet TAKE 1 TABLET BY MOUTH DAILY 90 tablet 3 ??? triamterene-hydrochlorothiazide (DYAZIDE) 37.5-25 MG per capsule TAKE 1 CAPSULE BY MOUTH EVERY DAY 90 capsule 2 ??? NONFORMULARY ??? NONFORMULARY ??? NONFORMULARY ??? NONFORMULARY ??? order for DME Equipment being ordered: CPAP Patient Ruddy Calhoun was set up at [facility] on May 25, 2015. Patient received a Resmed Airsense 10 Auto. Pressures were set at Auto 5 - 15 cm H2O. Patient???s ramp is 0 cm H2O for Off and FLEX/EPR is A Flex 2. Patient received a [employer] Oy Mask name: Simplus Full Face mask Size Medium, heated tubing and heated humidifier. Patient is enrolled in the STM Program and does need to meet compliance. Patient has a follow up on TBD with LOIS Antonio. AKBAR CABRERA No Known Allergies ROS: CONSTITUTIONAL: NEGATIVE for fever, chills, change in weight INTEGUMENTARY/SKIN: NEGATIVE for worrisome rashes, moles or lesions EYES: NEGATIVE for vision changes or irritation ENT/MOUTH: NEGATIVE for ear, mouth and throat problems RESP: NEGATIVE for significant cough or SOB BREAST: NEGATIVE for masses, tenderness or discharge [...] Miguel Angel MD. It was created on his/her behalf by Matthew Dave, a trained medical records coordinator. The creation of this document is based the provider's statements to the medical records coordinator. Scribclement Dave 9:17 AM, November 27, 2017 OBJECTIVE: BP 126/77 (BP Location: Left arm, Patient Position: Chair, Cuff Size: Adult Large) Pulse 76 Temp97.3 ??F (36.3 ??C) (Oral) Resp 18 Ht 5' 5.75 (1.67 m) Wt 238 lb (108 kg) SpO2 98% BMI 38.71 kg/m2 Estimated body mass index is 38.71 kg/(m^2) as calculated from the following: Height as of this encounter: 5' 5.75 (1.67 m). Weight as of this encounter: 238 lb (108 kg). EXAM: GENERAL: healthy, alert and no distress EYES: [...] hepatosplenomegaly, no masses and bowel sounds normal (male): normal male genitalia without lesions or urethral discharge, no hernia, testicles were atrophic right greater than left RECTAL: he has an external tag, normal sphincter tone, no rectal masses, prostate 1+ size, smooth, nontender without nodules or masses MS: no gross musculoskeletal defects noted, 1+ pretibial edema left greater than right Feet are flat with significant bunions, his skin is dry and scaly SKIN: no suspicious lesions or rashes, he has sheets of seborrheic keratoses and he has lichenification of his skin in his inguinal area NEURO: Normal strength and tone, mentation intact and speech normal, deep tendon reflexes all normal PSYCH: mentation appears normal, affect normal/bright ASSESSMENT / PLAN: 1. Essential hypertension - UA reflex to Microscopic and Culture - CBC with platelets - Comprehensive metabolic panel 2. DIANNE (obstructive sleep apnea) 3. Idiopathic chronic gout of multiple sites without tophus - Uric acid 4. Seborrheic keratosis, inflamed -Will be reevaluated next week. 5. Encounter for routine adult health examination without abnormal findings - Prostate spec antigen screen - Vitamin D Deficiency - TSH with free T4 reflex - UA reflex to Microscopic and Culture - CBC with platelets - Comprehensive metabolic panel - Lipid panel reflex to direct LDL Fasting 6. Screening for prostate cancer - Prostate spec antigen screen 7. Class 2 obesity due to excess calories without serious comorbidity with body mass index (BMI) of 35.0 to 35.9 in adult -Recommend patient continue his diet and continue his exercise routine. 8. Hyperlipidemia LDL goal <130 - Lipid panel reflex to direct LDL Fasting 9. Vitamin D deficiency - Vitamin D Deficiency 10. Fatigue, unspecified type - TSH with free T4 reflex -He will return next week to follow up on his keratosis on his face. End of Life Planning: Patient currently has an advanced directive: No. I have verified the patient's ablity to prepare an advanced directive/make health care decisions. Literature was provided to assist patient in preparingan advanced directive. COUNSELING: Reviewed preventive health counseling, as reflected in patient instructions Regular exercise Healthy diet/nutrition Vision screening Hearing screening Dental care Estimated body mass index is 38.71 kg/(m^2) as calculated from the following: Height as of this encounter: 5' 5.75 (1.67 m). Weight as of this encounter: 238 lb (108 kg). Weight management plan: Discussed healthy diet and exercise guidelines and patient will follow up in6 months in clinic to re-evaluate. reports that he has quit smoking. His smoking use included Cigars. He has never used smokeless tobacco. Appropriate [...] Lung CA Screening Juan José Michelle MD [facility] The information in this document, created by the medical records coordinator for me, accurately reflects the services I personally performed and the decisions made by me. I have reviewed and approved this document for accuracy prior to leaving the patient care area. Juan José Michelle MD 10:43 AM, 11/27/17 documented in this encounter Nursing Notes Abimbola Sharpe CMA - 11/27/2017 9:30 AM CDT Chief Complaint Patient presents with ??? Wellness Visit Fasting Initial BP 126/77 (BP Location: Left arm, Patient Position: Chair, Cuff Size: Adult Large) Pulse 76 Temp 97.3 ??F (36.3 ??C) (Oral) Resp 18 Ht 5' 5.75 (1.67 m) Wt 238 lb (108 kg) SpO2 98% BMI 38.71 kg/m2 Estimated body mass index is 38.71 kg/(m^2) as calculated from the following: Height as of this encounter: 5' 5.75 (1.67 m). Weight as of this encounter: 238 lb (108 kg). Medication Reconciliation: karoline Sharpe CMA (AAMA) documented in this encounter Plan of Treatment Not on filedocumented as of this encounter Procedures Procedure Name Priority Date/Time Associated Comments Diagnosis UA MACROSCOPIC WITH Routine 11/27/2017 10:41 Essential Resu lts for this REFLEX TO MICROSCOPIC AM CDT hypertensi on procedure are in AND CULTURE Encounter for the results routine adult section. health examination without abnormal findings VITAMIN D DEFICIENCY Routine 11/27/2017 10:40 Encounter for Re sults for this SCREENING AM CDT routine adult procedure are in health examination the resul ts without abnormal section. findings Vitamin D deficiency URIC ACID Routine 11/27/2017 10:40 Idiopathic chronic Resul ts for this AM CDT gout of multiple procedure a re in sites without the results tophus section. TSH WITH FREE T4 Routine 11/27/2017 10:40 Encounter for Result s for this REFLEX AM CDT routine adult procedure are in health examination the resul ts without abnormal section. findings Fatigue, unspecified type PROSTATE SPECIFIC Routine 11/27/2017 10:40 Encounter for Resul ts for this ANTIGEN SCREEN AM CDT routine adult procedure ar e in health examination the resul ts without abnormal section. findings Screening for prostate cancer LIPID REFLEX TO DIRECT Routine 11/27/2017 10:40 Encounter for Results for this LDL PANEL AM CDT routine adult procedure are in health examination the resul ts without abnormal section. findings Hyperlipidemia LDL goal <130 COMPREHENSIVE Routine 11/27/2017 10:40 Essential Results fo r this METABOLIC PANEL AM CDT hypertension procedure are in Encounter for the results routine adult section. health examination without abnormal findings CBC WITH PLATELETS Routine 11/27/2017 10:40 Essential Resul ts for this AM CDT hypertension procedure are in Encounter for the results routine adult section. health examination without abnormal findings documented in this encounter Results UA reflex to Microscopic and Culture (11/27/2017 10:41 AM CDT) [facility] g[facility] Method Time Signature Color Urine Yellow 11/27/2017 [facility] 11:08 AM CLINICS CDT [facility] Appearance Urine Clear 11/27/2017 [facility] 11:08 AM CLINICS CDT [facility] Glucose Urine Negative NEG^Negat 11/27/2017 [facility] [place] mg/dL 11:08 AM [facility] CDT [facility] Bilirubin Urine Negative NEG^Negat 11/27/2017 [facility] [place] 11:08 AM CLINICS CDT [facility] Ketones Urine Negative NEG^Negat 11/27/2017 [facility] [place] mg/dL 11:08 AM CLINICS CDT [facility] Specific [place] 1.020 1.003 - 11/27/2017 [facility] Urine 1.035 11:08 AM CLINICS CDT [facility] Blood Urine Negative NEG^Negat 11/27/2017 [facility] [place] 11:08 AM CLINICS CDT [facility] pH Urine 7.0 5.0 - 7.0 11/27/2017 [facility] pH 11:08 AM CLINICS CDT [facility] Protein Albumin Negative NEG^Negat 11/27/2017 [facility] Urine [place] mg/dL 11:08 AM CLINICS CDT [facility] Urobilinogen 0.2 0.2 - 1.0 11/27/2017 [facility] Urine EU/dL 11:08 AM CLINICS CDT [facility] Nitrite Urine Negative NEG^Negat 11/27/2017 [facility] [place] 11:08 AM CLINICS CDT [facility] Leukocyte Negative NEG^Negat 11/27/2017 [facility] Esterase Urine [place] 11:08 AM CLINICS CDT [facility] Source Midstream 11/27/2017 [facility] Urine 11:08 AM CLINICS CDT [facility] Specimen (Source) Anatomical Collection Method Collection Time Re ceived Time Location / / Volume Laterality Examination of 11/27/2017 10:41 8 midstream urine AM CDT 10:42 AM CDT specimen (procedure) Juan José Michelle MD LAB - URINE ORDERABLES Performing Organization Address City/State/ZIP Code Phon e Number [facility] [address] [place] [address] Uric acid (11/27/2017 10:40 AM CDT) P athologist Signature Uric Acid 4.7 3.5 - 7.2 11/27/2017 [facility] mg/dL 2:59 PM CDT [facility] Specimen Anatomical Collection Method Collection Time Receive d Time (Source) Location / / Volume Laterality Blood specimen 11/27/2017 10:40 8 (specimen) AM CDT 10:41 AM CDT Juan José Michelle MD LAB - BLOOD ORDERABLES Performing Organization Address City/[facility]/ZIP Code Phon e Number [facility] [address] [place] [address] Lipid panel reflex to direct LDL Fasting (11/27/2017 10:40 AM CDT) Patholo gist Method Time Signature Cholesterol 159 <200 11/27/2017 [facility] mg/dL 2:59 PM CDT [facility] Triglycerides 98 <150 11/27/2017 [facility] mg/dL 2:59 PM CDT [facility] HDL Cholesterol 47 >39 mg/dL 11/27/2017 [facility] 2:59 PM CDT [facility] LDL Cholesterol 92 <100 11/27/2017 [facility] Calculated mg/dL 2:59 PM CDT [facility] Comment: Desirable: <100 mg/dl Non HDL Cholesterol 112 <130 mg/dL 11/27/2017 2:59 PM CDT [facility] Specimen Anatomical Collection Method Collection Time Receive d Time (Source) Location / / Volume Laterality Blood specimen 11/27/2017 10:40 8 (specimen) AM CDT 10:41 AM CDT Juan José Michelle MD LAB - BLOOD ORDERABLES Performing Organization Address City/State/ZIP Code Phon e Number [facility] [address] [place] [address] Comprehensive metabolic panel (11/27/2017 10:40 AM CDT) P athologist Signature Sodium 140 133 - 144 11/27/2017 [facility] mmol/L 2:59 PM CDT [facility] Potassium 3.5 3.4 - 5.3 11/27/2017 [facility] mmol/L 2:59 PM CDT [facility] Chloride 104 94 - 109 11/27/2017 [facility] mmol/L 2:59 PM CDT [facility] Carbon Dioxide 32 20 - 32 11/27/2017 [facility] mmol/L 2:59 PM CDT [facility] Anion Gap 4 3 - 14 11/27/2017 [facility] mmol/L 2:59 PM CDT [facility] Glucose 99 70 - 99 11/27/2017 [facility] mg/dL 2:59 PM CDT [facility] Urea Nitrogen 17 7 - 30 11/27/2017 [facility] mg/dL 2:59 PM CDT [facility] Creatinine 1.06 0.66 - 11/27/2017 [facility] 1.25 mg/dL 2:59 PM CDT [facility] GFR Estimate 69 >60 11/27/2017 [facility] mL/min/1.7 2:59 PM CDT [facility] [address] Comment: Non GFR Calc GFR Estimate If 83 >60 mL/min/1.7m2 11/27/2017 2:59 P [facility] Black T [facility] Comment: GFR Calc Calcium 9.1 8.5 - 10.1 11/27/2017 2:59 PM [facility] mg/dL T [facility] Bilirubin Total 0.6 0.2 - 1.3 mg/dL 11/27/2017 2:59 PM [facility] Albumin 3.5 3.4 - 5.0 g/dL 11/27/2017 2:59 PM [facility] Protein Total 7.2 6.8 - 8.8 g/dL 11/27/2017 2:59 PM [facility] CDT [facility] Alkaline Phosphatase 68 40 - 150 U/L 11/27/2017 2:59 PM [facility] ALT 58 0 - 70 U/L 11/27/2017 2:59 PM [facility] AST 31 0 - 45 U/L 11/27/2017 2:59 PM [facility] Specimen Anatomical Collection Method Collection Time Receive d Time (Source) Location / / Volume Laterality Blood specimen 11/27/2017 10:40 8 (specimen) AM CDT 10:41 AM CDT Juan José Michelle MD LAB - BLOOD ORDERABLES Performing Organization Address City/State/ZIP Code Phon e Number [facility] [address] [place] [address] CBC with platelets (11/27/2017 10:40 AM CDT) P athologist Signature WBC 10.5 4.0 - 11.0 11/27/2017 [facility] 10e9/L 11:10 AM CDT [facility] RBC Count 5.20 4.4 - 5.9 11/27/2017 [facility] 10e12/L 11:10 AM CDT [facility] Hemoglobin 15.4 13.3 - 11/27/2017 [facility] 17.7 g/dL 11:10 AM CDT [facility] Hematocrit 48.6 40.0 - 11/27/2017 [facility] 53.0 % 11:10 AM CDT [facility] MCV 94 78 - 100 11/27/2017 [facility] fl 11:10 AM CDT [facility] MCH 29.6 26.5 - 11/27/2017 [facility] 33.0 pg 11:10 AM CDT [facility] MCHC 31.7 31.5 - 11/27/2017 [facility] 36.5 g/dL 11:10 AM CDT [facility] RDW 14.6 10.0 - 11/27/2017 [facility] 15.0 % 11:[address] [facility] Platelet Count 199 150 - 450 11/27/2017 [facility] 10e9/L 11:10 AM CDT [facility] Specimen Anatomical Collection Method Collection Time Receive d Time (Source) Location / / Volume Laterality Blood specimen 11/27/2017 10:40 8 (specimen) AM CDT 10:41 AM CDT Juan José Michelle MD LAB - BLOOD ORDERABLES Performing Organization Address City/State/ZIP Code Phon e Number [facility] [address] [place] [address] TSH with free T4 reflex (11/27/2017 10:40 AM CDT) P athologist Signature TSH 2.10 0.40 - 4.00 11/27/2017 [facility] mU/L 2:59 PM CDT [facility] Specimen Anatomical Collection Method Collection Time Receive d Time (Source) Location / / Volume Laterality Blood specimen 11/27/2017 10:40 8 (specimen) AM CDT 10:41 AM CDT Juan José Michelle MD LAB - BLOOD ORDERABLES Performing Organization Address City/State/ZIP Code Phon e Number [facility] [address] [place] [address] Vitamin D Deficiency (11/27/2017 10:40 AM CDT) P athologist Signature Vitamin D 22 20 - 75 11/27/2017 [facility] Deficiency ug/L 8:07 PM CDT [facility] Comment: Season, race, dietary intake, and treatm ent affect the concentration of [id number] D. Values may decreas e during winter [...] Location / / Volume Laterality Blood specimen 11/27/2017 10:40 8 (specimen) AM CDT 10:41 AM CDT Juan José Michelle MD LAB - BLOOD ORDERABLES Performing Organization Address City/State/ZIP Code Phon e Number [id number] [place] [address] Prostate spec antigen screen (11/27/2017 10:40 AM CDT) athologist Signature PSA 2.01 0 - 4 ug/L 11/27/2017 [facility] 2:49 PM CDT [facility] Comment: Assay Method: Chemiluminescence using Siemens [place] analyzer Specimen Anatomical Collection Method Collection Time Receive d Time (Source) Location / / Volume Laterality Blood specimen 11/27/2017 10:40 8 (specimen) AM CDT 10:41 AM CDT Juan José Michelle MD LAB - BLOOD ORDERABLES Performing Organization Address City/State/ZIP Code Phon e Number [facility] [address] [place] [address] [phone] 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) Seborrheic keratosis, inflamed Inflamed seborrheic keratosis Encounter for routine adult health exami nation without abnormal findings Screening for prostate cancer Special screening for malignant neoplasm of prostate Class 2 obesity due to excess calories w ithout serious comorbidity with body mass index (BMI) of 35.0 to 35.9 in adult Hyperlipidemia LDL goal <130 Other and unspecified hyperlipidemia Vitamin D deficiency Unspecified vitamin D deficiency Fatigue, unspecified type documented in this encounter Care Teams Licensed Massage Therapist Relationship Specialty Start Date End Date Juan José Michelle MD PCP - General Internal Medicine 05/08/15 01/09/21 Juan José Michelle MD PCP - Assigned PCP 07/26/16 11/17/18 [address] [place] [address] Juan José Michelle MD Assigned PCP 07/26/16 12/30/20 [address] [place] [address] documented as of this encounter
--- OUTSIDE RECORDS SUMMARY | 2022-06-20 14:12 | XMS_ITS | Encounter Summary ---
:1945 Author Organization [place] Address [facility] [place] [address] Care Team Providers Name Role Phone Juan José Michelle MD Primary Care Provider Juan José Michelle MD Unavailable Encounter Details Date Type Department Care Team Description 12/04/2018 Travel Social History Tobacco Use Types Packs/Day [...] on filedocumented in this encounter Care Teams Staple Laster Relationship Specialty Start Date End Date Juan José Michelle MD PCP - General Internal Medicine 05/08/15 01/09/21 Juan José Michelle MD Assigned PCP 07/26/16 12/30/20 [address] [place] [address] documented as of this encounter
--- OUTSIDE RECORDS SUMMARY | 2022-06-20 14:12 | XMS_ITS | Encounter Summary ---
:1945 Author Organization [place] Address [address] [facility] [place] [address] Care Team Providers Name Role Phone Juan José Michelle MD Primary Care Provider Juan José Michelle MD Unavailable Juan José Michelle MD Unavailable Reason for Visit Reason Comments Medication Refill Dyazide Encounter Details Date Type Department Care Team Description 06/14/2018 Refill [facility] Juan José Michelle MD Medication Refill [place] [address] [facility] (Dyazide) [address] [facility] [address] [place], [place] [phone] (Wo rk) Social History Tobacco [...] this encounter Miscellaneous Notes Telephone Encounter - Tamra Washington RN - 06/16/2018 11:52 AM CDT Prescription approved per [facility] Refill Protocol. Lissa Washington RN Requested Prescriptions Signed Prescriptions Disp Refills ??? triamterene-hydrochlorothiazide (DYAZIDE) 37.5-25 MG per capsule 90 capsule 0 Sig: TAKE 1 CAPSULE BY MOUTH EVERY DAY Diuretics (Including Combos) Protocol Passed 06/14/2018 9:42 PM Passed - Blood pressure under 140/90 [...] benign documented in this encounter Care Teams Efficiency Manager Relationship Specialty Start Date End Date Juan José Michelle MD PCP - General Internal Medicine 05/08/15 01/09/21 Juan José Michelle MD PCP - Assigned PCP 07/26/16 11/17/18 [address] [place] [phone] Juan José Michelle MD Assigned PCP 07/26/16 12/30/20 [address] [place], [place] [id number] documented as of this encounter
--- OUTSIDE RECORDS SUMMARY | 2022-06-20 14:12 | XMS_ITS | Encounter Summary ---
:1945 Author Organization [place] Address [address] [place] [address] Care Team Providers Name Role Phone Juan José Michelle MD Primary Care Provider Juan José Michelle MD Unavailable Juan José Michelle MD Unavailable Reason for Visit Reason Onset Date Comments Refill Request 12/10/2017 lisinopril/hctz Encounter Details Date Type Department Care Team Description 12/10/2017 Refill [facility] Juan José Michelle MD Refill Request [place] [address] [facility] (lisinopril/hctz) [address] [facility] [address] [place] [phone] (Wo rk) Social History Tobacco Use [...] this encounter Miscellaneous Notes Telephone Encounter - Jacqueline No RN - 12/10/2017 9:59 AM CDT Requested Prescriptions Pending Prescriptions Disp Refills ??? lisinopril-hydrochlorothiazide (PRINZIDE/ZESTORETIC) 20-25 MG per tablet 90 tablet 1 Sig: Take 1 tablet by mouth daily Diuretics (Including Combos) Protocol Passed 12/10/2017 9:51 AM Passed - Blood pressure under 140/90 [...] Labs Lab Test 11/27/17 1040 NA 140 Prescription approved [place] [facility] Refill Protocol. Jacqueline No RN documented in this encounter Plan of Treatment Not on filedocumented as of this encounter Visit Diagnoses Diagnosis Benign essential hypertension Essential hypertension, benign documented in this encounter Care Teams Coordinator Cardiopulmonary Services Relationship Specialty Start Date End Date Juan José Michelle MD PCP - General Internal Medicine 05/08/15 01/09/21 Juan José Michelle MD PCP - Assigned PCP 07/26/16 11/17/18 [address] [facility] [address] [place] [address] Juan José Michelle MD Assigned PCP 07/26/16 12/30/20 [address] [facility] [address] [place], [place] [address] documented as of this encounter
--- OUTSIDE RECORDS SUMMARY | 2022-06-20 14:12 | XMS_ITS | Encounter Summary ---
:1945 Author Organization [place] Address [facility] [place] [address] Care Team Providers Name Role Phone Juan José Michelle MD Primary Care Provider Juan José Michelle MD Unavailable Encounter Details Date Type Department Care Team Description 11/24/2018 Travel Social History Tobacco Use Types Packs/Day [...] on filedocumented in this encounter Care Teams Box Chipper Relationship Specialty Start Date End Date Juan José Michelle MD PCP - General Internal Medicine 05/08/15 01/09/21 Juan José Michelle MD Assigned PCP 07/26/16 12/30/20 [address] [place] [address] documented as of this encounter
--- OUTSIDE RECORDS SUMMARY | 2022-06-20 14:12 | XMS_ITS | Encounter Summary ---
:1945 Author Organization [place] Address [facility] [place] [address] Care Team Providers Name Role Phone Juan José Michelle MD Primary Care Provider Juan José Michelle MD Unavailable Juan José Michelle MD Unavailable Encounter Details Date Type Department Care Team Description 05/15/[address] [facility] cial screening for [place] [facility] malignant neoplasms, colon [address] [place], [place] [phone] Social History Tobacco Use [...] Procedure Name Priority Date/Time Associated Comments Diagnosis FECAL COLORECTAL Routine 05/15/2017 10:15 AM Special screening Results for this CANCER SCREEN FIT CDT for malignant procedure are in neoplasms, colon the results section. documented in this encounter Results Fecal colorectal cancer screen (FIT) (05/15/2017 10:15 AM CDT) Analysis Performed At Patho logist Time Signature Occult Blood Negative NEG^Negati 05/15/2017 [facility] FIT ve 10:04 PM CDT [facility] Specimen Anatomical Collection Method Collection Time Receive d Time (Source) Location / / Volume Laterality Stool specimen 05/15/2017 10:15 7 5:54 (specimen) AM CDT PM CDT Juan José Michelle MD LAB - STOOLS ORDERABLES Performing Organization Address City/State/ZIP Code Phon e Number [facility] [address] [place] [address] [facility] documented in this encounter Visit Diagnoses Diagnosis Special screening for malignant neoplasm s, colon documented in this encounter Care Teams Chess Instructor Relationship Specialty Start Date End Date Juan José Michelle MD PCP - General Internal Medicine 05/08/15 01/09/21 Juan José Michelle MD PCP - Assigned PCP 07/26/16 11/17/18 [address] [place] [address] Juan José Michelle MD Assigned PCP 07/26/16 12/30/20 [address] [place] [address] documented as of this encounter
--- OUTSIDE RECORDS SUMMARY | 2022-06-20 14:12 | XMS_ITS | Encounter Summary ---
:1945 Author Organization [place] Address [address] [place] [address] Care Team Providers Name Role Phone Juan José Michelle MD Primary Care Provider Juan José Michelle MD Unavailable Reason for Visit Reason Onset Date Comments Appointment 12/02/2018 Encounter Details Date Type Department Care Team Description 12/02/2018 Telephone [facility] Juan José Michelle MD Appointment [place] [address] [facility] [address] [facility], [address] [place] [address] [place] [address] [phone] Social History Tobacco Use Types Packs/Day Years [...] Notes Telephone Encounter - Jade Ward - 12/04/2018 8:26 AM CDT Pt is scheduled with Jada on 12/04 Telephone Encounter - Tiffanie Mendes - 12/02/2018 4:39 PM CDT Reason for Call: Other Detailed comments: Pt needs to schedule a preop physical with Dr. Michelle. Pt was told that Dr. Michelle will fit him in Phone Number Patient can be reached at: Home number on file [phone] (home) or Cell number on file: Telephone Information: Best Time: any Can we leave a detailed message on this number? YES Call taken on 12/02/2018 at 4:39 PM by Tiffanie Mendes documented in this encounter Plan of Treatment Not on filedocumented as of this encounter Visit Diagnoses Not on filedocumented in this encounter Care Teams Fundraising Assistant Relationship Specialty Start Date End Date Juan José Michelle MD PCP - General Internal Medicine 05/08/15 01/09/21 Juan José Michelle MD Assigned PCP 07/26/16 12/30/20 [address] [place] [phone] documented as of this encounter
--- OUTSIDE RECORDS SUMMARY | 2022-06-20 14:12 | XMS_ITS | Encounter Summary ---
:1945 Author Organization [place] Address [address] 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; [address], [address] Hyperlipidemia LDL goal <130; [place] [address] [place] Encounter for routine adult health examination without abnormal findings; [phone] [address] Vitamin D deficiency; [phone] Seborrheic neftali tosis, inflamed; (Work) Fatigue, unspecified type; [phone] Screening for p rostate cancer; (Fax) Special screeni ng for malignant neoplasms, [...] as of this encounter Patient Instructions Patient InstructionsEvie Sotelo, HAIR SPINNING MACHINE OPERATOR - 11/30/2018 9:00 AM CDT Preventive Health Recommendations: See your health care provider every year to ?? Review health changes. ?? Discuss preventive care. ?? Review your medicines if your doctor has [...] Prevnar (PCV 13). ??? Talk to your pharmacist about a shingles vaccine. ??? Talk to your doctor about the hepatitis B vaccine. Nutrition: ??? Eat at least 5 servings of fruits and vegetables each day. ??? Eat whole-grain bread, whole-wheat pasta and brown rice instead of white grains and rice. ??? Get adequate Calcium and Vitamin D. Lifestyle ??? Exercise [...] such as glaucoma, macular degeneration and cataracts. Personalized Prevention Plan You are due for the preventive services outlined below. Your care team is available to assist you inscheduling these services. If you have already completed any of these items, please share that information with your care team to update in your medical record. Health Maintenance Due Topic Date Due ??? Hepatitis C Screening 1964 ??? Colon Cancer Screening - every 10 years. 1996 ??? Zoster (Shingles) Vaccine (1 of 2) 1996 ??? Discuss Advance Directive Planning 2001 ??? AORTIC ANEURYSM SCREENING (SYSTEM ASSIGNED) 2011 ??? Flu Vaccine (1) 05/16/2018 ??? Annual Wellness Visit 11/27/2018 ??? FALL RISK ASSESSMENT 11/27/2018 ??? 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) Hyperlipidemia LDL goal <130 Other and unspecified hyperlipidemia Encounter for routine adult health exami nation without abnormal findings Vitamin D deficiency Unspecified vitamin D deficiency Seborrheic keratosis, inflamed Inflamed seborrheic keratosis Fatigue, unspecified type Screening for prostate cancer Special screening for malignant neoplasm of prostate Special screening for malignant neoplasm s, colon documented in this encounter Care Teams Cloth Mender Relationship Specialty Start Date End Date Juan José Michelle MD PCP - General Internal Medicine 05/08/15 01/09/21 Juan José Michelle MD Assigned PCP 07/26/16 12/30/20 [address] [place], [place] [phone] documented as of this encounter
--- OUTSIDE RECORDS SUMMARY | 2022-06-20 14:12 | XMS_ITS | Encounter Summary ---
:1945 Author Organization [place] Address [address] [facility] [place] [address] Care Team Providers Name Role Phone Juan José Michelle MD Primary Care Provider Juan José Michelle MD Unavailable Juan José Michelle MD Unavailable Reason for Visit Reason Comments Medication Refill Allopurinol - discontinued Encounter Details Date Type Department Care Team Description 07/01/2017 Refill [facility] Juan José Michelle MD Medication Refill [place] [address] (Allopurinol - [address] discontinued) [address] [place] [phone] (Wo rk) Social History Tobacco Use Types [...] encounter Miscellaneous Notes Telephone Encounter - Tamra Washington, RASHMI - 07/01/2017 4:18 PM CDT Refill request for Allopurinol Not on current medication list. Discontinued. Lissa Washington RN documented in this encounter Plan of Treatment Not on filedocumented as of this encounter Visit Diagnoses Not on filedocumented in this encounter Care Teams Manager Land Relationship Specialty Start Date End Date Juan José Michelle MD PCP - General Internal Medicine 05/08/15 01/09/21 Juan José Michelle MD PCP - Assigned PCP 07/26/16 11/17/18 [address] [place] [phone] Juan José Michelle MD Assigned PCP 07/26/16 12/30/20 [address] [place] [phone] documented as of this encounter
--- OUTSIDE RECORDS SUMMARY | 2022-06-20 14:12 | XMS_ITS | Encounter Summary ---
:1945 Author Organization [place] Address [address] [place] [address] Care Team Providers Name Role Phone Juan José Michelle MD Primary Care Provider Juan José Michelle MD Unavailable Juan José Michelle MD Unavailable Reason for Visit Reason Comments Medication Refill Encounter Details Date Type Department Care Team Description 08/05/2017 Refill [facility] Juan José Michelle MD Medication Refill [place] [address] [facility] [address] [facility] [address] [place] [address] [place] [address] [phone] Social History Tobacco Use Types Packs/Day Years [...] this encounter Miscellaneous Notes Telephone Encounter - Kitty Norwood RN - 08/06/2017 10:08 AM CST duplicate TOR OPERATOR documented in this encounter Plan of Treatment Not on filedocumented as of this encounter Visit Diagnoses Diagnosis Benign essential hypertension Essential hypertension, benign documented in this encounter Care Teams Corn Picker Relationship Specialty Start Date End Date Juan [...]
--- OUTSIDE RECORDS SUMMARY | 2022-06-20 14:12 | XMS_ITS | Encounter Summary ---
:1945 Author Organization [place] Address [address] [facility] [place] [address] Care Team Providers Name Role Phone Juan José Michelle MD Primary Care Provider Juan José Michelle MD Unavailable Juan José Michelle MD Unavailable Reason for Visit Reason Onset Date Comments Pre-op information 05/14/2017 Encounter Details Date Type Department Care Team Description 05/14/[address] [facility] Juan José Michelle MD Pre-op information [place] [address] [facility] [address] [facility] [address] [place] [address] [place] [address] [phone] Social History Tobacco Use Types Packs/Day Years [...] this encounter Miscellaneous Notes Telephone Encounter - Rula Russell, [facility] - 05/16/2017 1:12 PM CDT Re-faxed form to # below. Mayela Yvonne- CRISTINE Telephone Encounter - Ralph Mercado - 05/16/2017 1:08 PM CDT Per Patient's Marilou they never received the Pre- OP Faxed to them Please Fax to [facility] # [phone] Attn: Besty Thank you Telephone Encounter - Lianet Gordon - 05/16/2017 11:35 AM CDT Telephone Encounter - Rula Russell CMA - 05/16/2017 9:56 AM CDT Faxed Pre op Mayela Russell- CRISTINE Telephone Encounter - Rula Russell CMA - 05/14/2017 11:51 AM CDT Need to close Preop so can fax OV note. Thanks\ Mayela Smyth CMA Telephone Encounter - Heather Alejandro - 05/14/2017 11:45 AM CDT Reason for Call: Pre-op information Detailed comments: Mara Dong calling. [facility] needs pre-op information Faxed. HNP and labs Mara from [facility] ph.[phone] Option 1 Best Time: Anytime Can we leave a detailed message on this number? YES Call taken on 05/14/2017 at 11:45 AM by Heather Alejandro documented in this encounter Plan of Treatment Not on filedocumented as of this encounter Visit Diagnoses Not on filedocumented in this encounter Care Teams Toolmaker Grade Three Relationship Specialty Start Date End Date Juan José Michelle MD PCP - General Internal Medicine 05/08/15 01/09/21 Juan José Michelle MD PCP - Assigned PCP 07/26/16 11/17/18 [address] [place] [phone] Juan José Michelle MD Assigned PCP 07/26/16 12/30/20 [address] [place] [address] documented as of this encounter
--- OUTSIDE RECORDS SUMMARY | 2022-06-20 14:12 | XMS_ITS | Encounter Summary ---
:1945 Author Organization [place] Address [address] [facility] [place] [address] Care Team Providers Name Role Phone Juan José Michelle MD Primary Care Provider Juan José Michelle MD Unavailable Juan José Michelle MD Unavailable Reason for Visit Reason Comments Medication Refill allopurinol Encounter Details Date Type Department Care Team Description 06/15/2018 Refill [facility] Juan José Michelle MD Medication Refill [place] [address] [facility] (allopurinol ) [address] [facility] [address] [place], [place] [phone] (Wo rk) Social History Tobacco Use Types [...] this encounter Miscellaneous Notes Telephone Encounter - Prisca Angel RN - 06/16/2018 11:40 AM CDT Prescription approved per [facility] Refill Protocol. Nza Angel RN- Triage [employer] Telephone Encounter - Elysia Maza - 06/15/2018 7:36 PM CDT Last Written Prescription Date: 07/03/17 Last Fill Quantity: 90 tablet, # refills: 3 Last office visit: 03/12/2018 with prescribing provider: Miguel Angel Future Office Visit: Requested Prescriptions Pending Prescriptions Disp Refills ??? 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
--- OUTSIDE RECORDS SUMMARY | 2022-06-20 14:12 | XMS_ITS | Encounter Summary ---
:1945 Author Organization [facility] Address [address] [place] [address] Care Team Providers Name Role Phone Juan José Michelle MD Primary Care Provider Juan José Michelle MD Unavailable Juan José Michelle MD Unavailable Encounter Details Date Type Department Care Team Description 12/03/[address] [facility] Juan José Michelle Essent ial hypertension (Primary Dx); Clinic Angy WISDOM DIANNE (obstructive sleep apnea); [address] Idiopat hic chronic gout of multiple sites without tophus; [place], [address] Seborrheic keratosis, inflamed; [place] [address] [place] Class 2 obesity due to exces s calories without serious comorbidity with body mass index (BMI) of 35.0 to 35.9 in adult; [phone] [address] Vitamin D deficiency Social History Tobacco Use Types Packs/Day Years [...] documented as of this encounter Progress Notes Amita Bingham - 12/03/2017 12:00 PM CDT SUBJECTIVE: Ruddy Calhoun is a 72 year old male who presents to clinic today for the following health issues: The patient presents to the clinic for review of labs completed on 11/27/2017. His vitamin D level was low at 22. He has a history of gout which is controlled with allopurinol and his uric acid levels were within normal range. His UA, lipid panel, CMP, CBC, and TSH were all within normal range. Problem list and histories reviewed & adjusted, [...] Ruddy Calhoun was set up at [facility] [place] on May 25, 2015. Patient received a [...] on TBD with LOIS Antonio. AKBAR CABRERA BP Readings from Last 3 Encounters: 11/27/17 126/77 06/11/17 128/70 05/12/17 126/79 Wt Readings from Last 3 Encounters: 11/27/17 108 kg (238 lb) 06/11/17 105.7 kg (233 lb) 05/12/17 105.7 kg (233 lb) Labs reviewed in [facility] Reviewed and updated as needed this visit [...] behalf by Amita Bingham, a trained medical specialist. The creation of this document is based the provider's statements to the medical specialist. 12/03/2017 OBJECTIVE: There were no vitals taken for this visit. There is no height or weight on file to calculate BMI. GENERAL: healthy, alert and no distress SKIN: no suspicious lesions or rashes except 7x seborrheic keratoses, 1x on forehead, 2x on back, and 3x on chest Procedure: Cryotherapy x2 performed on the seborrheic keratoses. Diagnostic Test Results: none ASSESSMENT/PLAN: 1. Essential hypertension Controlled with lisinopril-hydrochlorothiazide and Dyazide. 2. DIANNE (obstructive sleep apnea) Controlled with CPAP. 3. Idiopathic chronic gout of multiple sites without tophus Controlled with Allopurinol. 4. Seborrheic keratosis, inflamed Treated with cryotherapy today in the clinic. 5. Class 2 obesity due to excess calories without serious comorbidity with body mass index (BMI) of 35.0 to 35.9 in adult Discussed healthy diet and implementing an exercise routine. 6. Vitamin D deficiency Recommended that the patient begin taking 2000 IU of vitamin D daily. Juan José Michelle MD [facility] The information in this document, created by the medical specialist for me, accurately reflects the services I personally performed and the decisions made by me. I have reviewed and approved this document for accuracy prior to leaving the patient care area. 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) Seborrheic keratosis, inflamed Inflamed seborrheic keratosis Class 2 obesity due to excess calories w ithout serious comorbidity with body mass index (BMI) of 35.0 to 35.9 in adult Vitamin D deficiency Unspecified vitamin D deficiency documented in this encounter Care Teams Button Attaching Machine Operator Relationship Specialty Start Date End Date Juan José Michelle MD PCP - General Internal Medicine 05/08/15 01/09/21 Juan José Michelle MD PCP - Assigned PCP 07/26/16 11/17/18 [address] [place] [address] Juan José Michelle MD Assigned PCP 07/26/16 12/30/20 [address] [place] [address] documented as of this encounter
--- OUTSIDE RECORDS SUMMARY | 2022-06-20 14:12 | XMS_ITS | Encounter Summary ---
:1945 Author Organization [facility] Address [address] [facility] [place] [address] Care Team Providers Name Role Phone Juan José Michelle MD Primary Care Provider Juan José Michelle MD Unavailable uJan José Michelle MD Unavailable Reason for Visit Reason Comments Medication Refill triamterene-hydrochlorothiaz pk (DYAZIDE) 37.5-25 MG per capsule Encounter Details Date Type Department Care Team Description 06/08/2017 Refill [facility] Juan José Michelle MD Medication Refill [facility] [address] (triamterene-hydrochloro [address], [address] thiazide (DYAZIDE) [address] [place] 37.5-25 MG per capsule) [place] [id number] (Wo rk) Social History Tobacco Use Types [...] this encounter Miscellaneous Notes Telephone Encounter - Abimbola Sharpe CMA - 06/09/2017 11:31 AM CDT triamterene-hydrochlorothiazide (DYAZIDE) 37.5-25 MG per capsule Last Written Prescription Date: ? Last Fill Quantity: ?, # refills: ? Last Office Visit with [facility], [facility] or [facility] prescribing provider: 05/12/2017 Future Office visit: Routing refill request to provider for review/approval because: Drug not active on patient's medication list documented in this encounter Plan of Treatment Not on filedocumented as of this encounter Visit Diagnoses Diagnosis Benign essential hypertension Essential hypertension, benign documented in this encounter Care Teams Instrument Technician Relationship Specialty Start Date End Date Juan José Michelle MD PCP - General Internal Medicine 05/08/15 01/09/21 Juan José Michelle MD PCP - Assigned PCP 07/26/16 11/17/18 [address] [place] [address] Juan José Michelle MD Assigned PCP 07/26/16 12/30/20 [address] [place] [address] documented as of this encounter
--- OUTSIDE RECORDS SUMMARY | 2022-06-20 14:12 | XMS_ITS | Encounter Summary ---
:1945 Author Organization [facility] Address [address] [facility] [place] [address] Care Team Providers Name Role Phone Juan José Michelle MD Primary Care Provider Juan José Michelle MD Unavailable Juan José Michelle MD Unavailable Reason for Visit Reason Comments Medication Refill Encounter Details Date Type Department Care Team Description 07/31/2017 Refill [facility] Juan José Michelle MD Medication Refill [place] [address] [facility] [address] [facility] [place] [address] [place] [address] [phone] Social History Tobacco Use Types Packs/Day Years [...] Telephone Encounter - Jacqueline No RN - 08/01/2017 12:10 PM CST Prescription approved per [facility] Refill Protocol. Jacqueline No, RN COVER MAKER Telephone Encounter - brycemark Elysia - 07/31/2017 9:57 AM CST ITZ 05/12/17 Miguel Angel Maza RT(R) COVER MAKER documented in this encounter Plan of Treatment Not on filedocumented as of this encounter Visit Diagnoses Diagnosis Benign essential hypertension Essential hypertension, benign documented in this encounter Care Teams Intelligence Manager Relationship Specialty Start Date End Date [...]
--- OUTSIDE RECORDS SUMMARY | 2022-06-20 14:12 | XMS_ITS | Encounter Summary ---
:1945 Author Organization [facility] Address [address] [place] [address] Care Team Providers Name Role Phone Juan José Michelle MD Primary Care Provider Juan José Michelle MD Unavailable Reason for Visit Auth/Cert Specialty Diagnoses / Procedures Referred By Contact Refer red To Contact Surgery Diagnoses Left torn rotator cuff Rh Periop Services Procedures COMBINED ARTHROSCOPY SHOULDER, OPEN ROTATOR CUFF REPAIR COMBINED ARTHROSCOPY SHOULDER, OPEN DISTAL CLAVICLE RESECTION [address] [place], [place] [address] Phone: Fax: Referral ID Status Reason Start Date Expiration Date Visits Requ ested Visits Authorized [id number] 1 1 Encounter Details Date Type Department Care Team Description 12/09/2018 Hospital Encounter [facility] Mai Zuniga otator cuff [place] PreOP/PostOP MD Yulisa disorder, left [address] [facility] (Primary Dx) [place], [place] [facility] [address] [phone] [place], [place] [id number] Social History Tobacco Use Types Packs/Day Years [...] Sign Reading Time Taken Comments Blood Pressure 126/84 12/09/2018 3:31 PM CDT Pulse 81 12/09/2018 1:00 PM CDT Temperature 36.6 ??C (97.8 ??F) 12/09/2018 3:31 PM CDT Respiratory Rate 16 12/09/2018 3:31 PM CDT Oxygen Saturation 94% 12/09/2018 3:31 PM CDT Inhaled Oxygen Concentration - - [...] file Gets together: Not on file Attends scientologist service: Not on file Active member of club or organization: Not on file Attends meetings of clubs or organizations: Not on file Relationship status: Not on file ??? Intimate partner violence: Fear of current or ex partner: Not on file Emotionally abused: Not on file Physically abused: Not on file Forced sexual activity: Not on file Other Topics Concern ??? Parent/sibling w/ CABG, IA or angioplasty before 65F 55M? Not Asked [...] Patient Alta Calhoun was set up at [place] on May 25, 2015. Patient received a [...] Patient Alta [place] was set up at [place] on May 25, 2015. Patient received a [...] a follow up on TBD with PA. AKBAR Antonio Code Status: X-rays needed at the follow up visit: none Patient will be in a sling for 8 weeks due to size of the rotator cuff repair. Marco Antonio Ledesma PA-C 12/09/2018 12:15 PM [facility] Angy [phone] documented in this encounter Discharge Instructions Discharge Nusrat Hurtado RN - 12/09/2018 2:13 PM CDT GENERAL [...] Date dorzolamide-timolol INSTILL 1 DROP INTO 2 10/29/ 019 (COSOPT) 2-0.5 % BOTH EYES TWICE ophthalmic solution DAILY order for DME Equipment being ordered: CPAP 0 Patient Alta [place] was set up at [place] on May 25, 2015. Patient received a Resmed Airsense 10 Auto. Pressures were set at Auto 5 - 15 cm H2O. Patient? s ramp is 0 cm H2O for Off and FLEX/EPR is A Flex 2. Patient receiv ed a [employer] Mask name: Simplus Full Face mask Size [...] AM CDT [facility] Progress Note [facility] Pre-Op Saw pt Alta Calhoun per his request for correspondence analyst support before his procedure. His spouse Marilou lira. Brayan reported that he is having surgery on his rotator cuff after an injury from a fall. His [employer] alexis plays a significant role in his life, and he and Marilou are affiliated with [employer]. Brayan requested prayer, which was provided. Informed them how they can request further correspondence analyst support once Brayan is admitted to the floor. No further plans; this author and other chaplains remain available per pt/family request. Mat Lehman M.Div., [facility] Staff Sales Representative [facility] Pager [phone] documented in this encounter Miscellaneous Notes Op [...] surgery. ANESTHESIA: General. SURGEON: Mai Zuniga MD REVENUE TAX SPECIALIST: Dipak Ledesma PA-C DESCRIPTION OF PROCEDURE: The [...] running 3-0 Monocryl subcuticular stitch followed by dedeinMaureeni-Strips and sterile dressing. A shoulder immobilizer was applied. The patient tolerated the operative procedure. There were no intraoperative complications. The patient went to the PAR in stable condition. PLAN: The patient will be sent home with Keflex for 3 days for infection prophylaxis and aspirin 30 days for DVT prophylaxis and oxycodone for pain. MAI ZUNIGA MD MT: NTS Name: ALTA CALHOUN MRN: [id number] Account: [id number] : 1945 Procedure Date: 12/09/2018 Document: [id number] documented in this encounter Plan of Treatment Not on filedocumented as of this encounter Procedures Procedure Name Priority Date/Time Associated Diagnosis Comme nts EXCISION, CLAVICLE, 12/09/2018 9:37 AM CDT Left torn r otator cuff DISTAL Special Needs Ht 5'7, Wt 238#, [facility] Sales Representative [facility] requested preop ARTHROTOMY, SHOULDER, WITH ROTATOR 12/09/2018 9: 37 AM CDT Left torn rotator cuff CUFF REPAIR Special Needs Ht 5'7, Wt 238#, per [facility] Sales Representative [facility] requested preop documented in this encounter Visit Diagnoses Diagnosis Rotator cuff disorder, left - Primary documented in this encounter Administered Medications Inactive Administered Medications - up to 3 most recent administrations Medication Order MAR Action Action Date Dose Rate Site dimenhyDRINATE (DRAMAMINE) injection 25 mg 25 mg, [...] mg 0.3-0.5 mg, Intravenous, EVERY 10 MIN IL N, other, acute pain.?May administer if Respiratory [...] administration of oral pain medication., PACU/Phase II documented in this encounter Active and Recently [...] infusion 1200 ( Canceled Entry - Provider: Orders Generic Provider - Comment: Automatically canceled at [...] mg 0.3-0.5 mg, Intravenous, EVERY 10 MIN IL N, Starting Fri12/09/18 at 1157, Until Fri12/09/18 [...] sea, vomiting, Administer over 2-5 Minutes, Starting Fri12/09/18 at 1157, For 2 doses, MAX [...] miting, Starting Fri12/09/18 at 1157, For 2 doses, MAX [...] sea, vomiting, Administer over 2-5 Minutes, Starting Fri12/09/18 at 1157, For 2 doses
MAX total dose = 8 mg, including OR dosing. This is step 1 of nause a and vomiting management. If not resolved in 15 minutes, then go to step 2 [prochlorperazine (COMPAZINE) if ordered]. Irritant. For ordered IV doses 0.1-4 mg, give IV Push undiluted over 2-5 minutes.
PACU/Phase II documented in this encounter Care Teams Coater Helper Relationship Specialty Start Date End Date Juan José Michelle MD PCP - General Internal Medicine 05/08/15 01/09/21 Juan José Michelle MD Assigned PCP 07/26/16 12/30/20 [address] [place] [address] documented as of this encounter
--- OUTSIDE RECORDS SUMMARY | 2022-06-20 14:12 | XMS_ITS | Encounter Summary ---
:1945 Author Organization [facility] Address [address] [place] [address] Care Team Providers Name Role Phone Juan José Michelle MD Primary Care Provider Juan José Michelle MD Unavailable Reason for Visit Reason Comments Pre-Op Exam Encounter Details Date Type Department Care Team Description 12/04/2018 Office Visit [facility] Jada Brantley Preop gen eral physical exam (Primary Dx); Clinic J Luis Britton APRN MACHINE SETTER AND REPAIRER Tear of left rotator cuff, u nspecified tear extent; [address], Paul d obesity (H) [address] [place] [address] Social History Tobacco Use Types [...] Sign Reading Time Taken Comments Blood Pressure 119/80 12/04/2018 10:30 AM CDT Pulse 80 12/04/2018 10:30 AM CDT Temperature 36.8 ??C (98.3 ??F) 12/04/2018 10:30 AM CDT Respiratory Rate - - Oxygen Saturation 96% 12/04/2018 10:30 AM CDT Inhaled Oxygen Concentration - - Weight 108 kg (238 lb) 12/04/2018 10:30 AM CDT Height - - Body Mass Index 37.28 11/24/2018 6:10 PM CDT documented in this encounter Patient Instructions Patient InstructionsLianet Beck CMA - 12/04/2018 10:30 AM CDT Before Your Surgery ??? Call your surgeon if there is any change in your health. This includes signs of a cold or flu (such as a sore throat, runny nose, cough, rash or fever). ??? Do not smoke, drink alcohol or take over the counter medicine (unless your surgeon or primary care doctor tells you to) for the 24 hours before and after surgery. ??? If you take prescribed drugs: Follow your doctor???s orders about which medicines to take and which to stop until after surgery. ??? Eating and drinking prior to surgery: follow the instructions from your surgeon ??? Take a shower or bath the night before surgery. Use the soap your surgeon gave you to gently clean your skin. If you do not have soap from your surgeon, use your regular soap. Do not shave or scrubthe surgery site. Wear clean pajamas and have clean sheets on your bed. documented in this encounter Progress Notes Jada Brantley APRN CNP - 12/04/2018 10:30 AM CDT [address] [address] Dept: [phone] PRE-OP EVALUATION: Today's date: 12/04/2018 Ruddy Calhoun (: 1945) presents for pre-operative evaluation assessment as requested by Dr. Gallardo. He requires evaluation and anesthesia risk assessment prior to undergoing surgery/procedure for treatment of left shoulder . Proposed Surgery/ Procedure: Left open shoulder rotator cuff repair Date of Surgery/ Procedure: 12/09/18 Time of Surgery/ Procedure: 10:00 a.m. Hospital/Surgical Facility: [place] Fax number for surgical facility: [facility] Primary Physician: Juan José Michelle Type of Anesthesia Anticipated: General Patient has a Health Care Directive or Living Will: Yes 1. NO - Do you have a history of heart attack, stroke, stent, bypass or surgery on an artery in the head, neck, heart or legs? 2. NO - Do you ever have any pain or discomfort in your chest? 3. NO - Do you have a history of Heart Failure? 4. YES - Are you troubled by shortness of breath when: walking on the level, up a slight hill or at night? sometimes 5. NO - Do you currently have a cold, bronchitis or other respiratory infection? 6. NO - Do you have a cough, shortness of breath or wheezing? 7. NO - Do you sometimes get pains in the calves of your legs when you walk? 8. YES - Do you or anyone in your family have previous history of blood clots? sister 9. NO - Do you or does anyone in your family have a serious bleeding problem such as prolonged bleeding following surgeries or cuts? 10. NO - Have you ever had problems with anemia or been told to take iron pills? 11. NO - Have you had any abnormal blood loss such as black, tarry or bloody stools, or abnormal vaginal bleeding? 12. NO - Have you ever had a blood transfusion? 13. NO - Have you or any of your relatives ever had problems with anesthesia? 14. YES - Do you have sleep apnea, excessive snoring or daytime drowsiness? Uses Cpap 15. NO - Do you have any prosthetic heart valves? 16. NO - Do you have prosthetic joints? 17. NO - Is there any chance that you may be ? HPI: HPI related to upcoming procedure: slipped and fell dislocating left shoulder tearing left rotator cuff on 11/24/18 HYPERTENSION - Patient has longstanding history of HTN , currently denies any symptoms referable to elevated blood pressure. Specifically denies chest pain, palpitations, dyspnea, orthopnea, PND or peripheral edema. Blood pressure readings have been in normal range. Current medication regimen is as listed below. Patient denies any side effects of medication. . SLEEP PROBLEM - Patient has a longstanding history of Sleep apnea and usese CPAP . MEDICAL HISTORY: Patient Active Problem List Diagnosis Date Noted ??? Obesity (BMI 35.0-39.9) with comorbidity (H) [...] ??? Essential hypertension 05/08/2015 Priority: Medium Past Medical History: Diagnosis Date ??? HTN (hypertension) Past Surgical History: Procedure Laterality Date ??? COLON SURGERY Current Outpatient Medications Medication Sig Dispense Refill ??? brimonidine-timolol (COMBIGAN) 0.2-0.5 % ophthalmic solution 1 drop ??? traMADol (ULTRAM) 50 MG tablet Take 1-2 tablets (50-100 mg) by mouth every 8 hours as needed formoderate to severe pain 20 tablet 0 ??? allopurinol (ZYLOPRIM) 300 MG tablet TAKE 1 TABLET BY MOUTH EVERY DAY 90 tablet 0 ??? dorzolamide-timolol (COSOPT) 2-0.5 % ophthalmic solution INSTILL 1 DROP INTO BOTH EYES TWICE DAILY 2 ??? lisinopril-hydrochlorothiazide (PRINZIDE/ZESTORETIC) 20-25 MG per tablet TAKE 1 TABLET BY MOUTH DAILY 90 tablet 1 ??? order for DME Equipment being ordered: CPAP Patient Ruddy Calhoun was set up at [place] on May 25, 2015. Patient received a Resmed Airsense 10 Auto. Pressures were set at Auto 5 - 15 cm H2O. Patient???s ramp is 0 cm H2O for Off and FLEX/EPR is A Flex 2. Patient received a [employer] Mask name: Simplus Full Face mask Size Medium, heated tubing and heated humidifier. Patient is enrolled in the STM Program and does need to meet compliance. Patient has a follow up on TBD with LOIS Antonio. AKBAR CABRERA ??? triamterene-HCTZ (DYAZIDE) 37.5-25 MG capsule TAKE 1 CAPSULE BY MOUTH EVERY DAY 90 capsule 0 OTC products: aleve- took one 12/03/18 No Known Allergies Latex Allergy: NO Social History Tobacco Use ??? Smoking status: Former Smoker Types: Cigars ??? Smokeless tobacco: Never Used Substance Use Topics ??? Alcohol use: No Alcohol/week: 0.0 oz Comment: not for about 35 years (as of 2014) History Drug Use No REVIEW OF SYSTEMS: CONSTITUTIONAL: NEGATIVE for fever, chills, change in [...] NEGATIVE for frequency, dysuria, or hematuria MUSCULOSKELETAL: POSITIVE for left shoulder pain , no paresthesia of LUE, minimal swelling of the hand NEURO: NEGATIVE for weakness, dizziness or paresthesias ENDOCRINE: NEGATIVE for temperature intolerance, skin/hair changes HEME: NEGATIVE for bleeding problems PSYCHIATRIC: NEGATIVE for changes in mood or affect EXAM: BP 119/80 (BP Location: Right arm, Cuff Size: Adult Large) Pulse 80 Temp 98.3 ??F (36.8 ??C) (Tympanic) Wt 108 kg (238 lb) SpO2 96% BMI 37.28 kg/m?? GENERAL APPEARANCE: healthy, alert and no distress EYES: EOMI, PERRL HENT: ear canals and TM's normal and nose and mouth without ulcers or lesions NECK: no adenopathy, no asymmetry, masses, or scars and thyroid normal to palpation RESP: lungs clear to auscultation - no rales, rhonchi or wheezes CV: regular rates and rhythm, normal S1 S2, no S3 or S4 and no murmur, click or rub ABDOMEN: soft, nontender, no HSM or masses and bowel sounds normal MS: extremities limited ROM of left shoulder/wearing sling, minimal edema good sensation of left hand/fingers SKIN: no suspicious lesions or rashes NEURO: sensory exam grossly normal, mentation intact and speech normal PSYCH: mentation appears normal. and affect normal/bright LYMPHATICS: No cervical adenopathy DIAGNOSTICS: EKGSinus Rhythm WITHIN NORMAL LIMITS Recent Labs Lab Test 11/27/17 1040 05/12/17 1015 HGB 15.4 14.5 PLT 199 215 NA 140 142 POTASSIUM 3.5 3.7 CR 1.06 1.22 Results for orders placed or performed in visit on 12/04/18 (from the past 24 hour(s)) CBC with platelets and differential Result Value Ref Range WBC 10.4 4.0 - 11.0 10e9/L RBC Count 4.97 4.4 - 5.9 10e12/L Hemoglobin 15.2 13.3 - 17.7 g/dL Hematocrit 46.7 40.0 - 53.0 % MCV 94 78 - 100 fl MCH 30.6 26.5 - 33.0 pg MCHC 32.5 31.5 - 36.5 g/dL RDW 14.2 10.0 - 15.0 % Platelet Count 222 150 - 450 10e9/L % Neutrophils 74.4 % % Lymphocytes 15.4 % % Monocytes 7.3 % % Eosinophils 2.7 % % Basophils 0.2 % Absolute Neutrophil 7.7 1.6 - 8.3 10e9/L Absolute Lymphocytes 1.6 0.8 - 5.3 10e9/L Absolute Monocytes 0.8 0.0 - 1.3 10e9/L Absolute Eosinophils 0.3 0.0 - 0.7 10e9/L Absolute Basophils 0.0 0.0 - 0.2 10e9/L Diff Method Automated Method Basic metabolic panel Result Value Ref Range Sodium 140 133 - 144 mmol/L Potassium 3.8 3.4 - 5.3 mmol/L Chloride 101 94 - 109 mmol/L Carbon Dioxide 33 (H) 20 - 32 mmol/L Anion Gap 6 3 - 14 mmol/L Glucose 98 70 - 99 mg/dL Urea Nitrogen 19 7 - 30 mg/dL Creatinine 1.23 0.66 - 1.25 mg/dL GFR Estimate 58 (L) >60 mL/min/[1.73_m2] GFR Estimate If Black 67 >60 mL/min/[1.73_m2] Calcium 9.5 8.5 - 10.1 mg/dL IMPRESSION: Reason for surgery/procedure: left rotator cuff repair Diagnosis/reason for consult: pre op consult The proposed surgical procedure is considered INTERMEDIATE risk. REVISED CARDIAC RISK INDEX The patient has the following serious cardiovascular risks for perioperative complications such as (SD, PE, VFib and 3?? AV Block): No serious cardiac risks INTERPRETATION: 0 risks: Class I (very low risk - 0.4% complication rate) The patient has the following additional risks for perioperative complications: No identified additional risks Morbid obesity ICD-10-CM 1. Preop general physical exam Z01.818 CBC with platelets and differential Basic metabolic panel EKG 12-lead complete w/read - Clinics 2. Tear of left rotator cuff, unspecified tear extent M75.102 traMADol (ULTRAM) 50 MG tablet 3. Morbid obesity (H) E66.01 RECOMMENDATIONS: --Patient is to take all scheduled medications on the day of surgery EXCEPT for modifications listedbelow. VINCENT Inhibitor or Angiotensin Receptor Reginaldo (ARB) Use Vincent inhibitor and should HOLD this medication for the 24 hours prior to surgery. Will also hold diuretic Bring CPAP to surgery APPROVAL GIVEN to proceed with proposed procedure, without further diagnostic evaluation Signed Electronically by: Jada Brantley APRN CNP Copy of this evaluation report is provided to requesting physician. [facility] Preop Guidelines Revised Cardiac Risk Index documented in this encounter Miscellaneous Notes Result Encounter Note - Jada Brantley APRN CNP - 12/04/2018 10:30 AM CDT You've been cleared for surgery, Ruddy documented in this encounter Plan of Treatment Not on filedocumented as of this encounter Procedures Procedure Name Priority Date/Time Associated Comments Diagnosis CBC WITH PLATELETS & Routine 12/04/2018 11:22 Preop general Re sults for this DIFFERENTIAL AM CDT physical exam procedure are in the results section. BASIC METABOLIC PANEL STAT 12/04/2018 11:22 Preop general R esults for this AM CDT physical exam procedure are in the results section. EKG 12-LEAD COMPLETE Routine 12/04/2018 11:09 Preop general Re sults for this W/READ - CLINICS AM CDT physical exam procedure are in the results section. documented in this encounter Results (ABNORMAL) Basic metabolic panel (12/04/2018 11:22 AM CDT) P athologist Signature Sodium 140 133 - 144 12/04/2018 [facility] mmol/L 11:50 AM [facility] Potassium 3.8 3.4 - 5.3 12/04/2018 [place] mmol/L 11:50 AM [facility] Chloride 101 94 - 109 12/04/2018 [place] mmol/L 11:50 AM [facility] Carbon Dioxide 33 (H) 20 - 32 12/04/2018 [place] mmol/L 11:56 AM [facility] Anion Gap 6 3 - 14 12/04/2018 [place] mmol/L 11:56 AM [facility] Glucose 98 70 - 99 12/04/2018 [place] mg/dL 11:56 AM [facility] Urea Nitrogen 19 7 - 30 12/04/2018 [place] mg/dL 11:56 AM [facility] Creatinine 1.23 0.66 - 12/04/2018 [facility] 1.25 mg/dL 11:56 AM [facility] GFR Estimate 58 (L) >60 12/04/2018 [place] mL/min/{1. 11:56 AM [facility] 73_m2} [facility] Comment: Non GFR Calc Starting 09/01/2018, serum creatinine ba sed estimated GFR (eGFR) will be calculated using the Chronic Kidney Dise [facility] Epidemiology Collaboration (CKD-EPI) equation. GFR Estimate If 67 >60 mL/min/{1.73_m2} 12/04/2018 11 :56 AM [facility] Comment: GFR Calc Starting 09/01/2018, serum creatinine ba sed estimated GFR (eGFR) will be calculated using the Chronic Kidney Dise [facility] Epidemiology Collaboration (CKD-EPI) equation. Calcium 9.5 8.5 - 10.1 mg/dL 12/04/2018 11:56 AM [facility] Specimen Anatomical Collection Method Collection Time Receive d Time (Source) Location / / Volume Laterality Blood specimen 12/04/2018 11:22 9 (specimen) AM CDT 11:23 AM CDT Jada Brantley APRN MACHINE SETTER AND REPAIRER LAB - BLOOD ORDERABLES Performing Organization Address City/State/ZIP Code Phon e Number [facility] [address] [place] [address] [address] [place] [address], U [phone] CBC with platelets and differential (12/04/2018 11:22 AM CDT) [facility] Method Time Signature WBC 10.4 4.0 - 12/04/2018 [facility] 11.0 11:51 AM CDT CLINICS 10e9/L [place] RBC Count 4.97 4.4 - 5.9 12/04/2018 [facility] 10e12/L 11:51 AM CDT CLINICS [place] Hemoglobin 15.2 13.3 - 12/04/2018 [facility] 17.7 g/dL 11:51 AM CDT CLINICS [place] Hematocrit 46.7 40.0 - 12/04/2018 [facility] 53.0 % 11:51 AM CDT CLINICS [place] MCV 94 78 - 100 12/04/2018 [facility] fl 11:51 AM CDT CLINICS [place] MCH 30.6 26.5 - 12/04/2018 [facility] 33.0 pg 11:51 AM CDT CLINICS [place] MCHC 32.5 31.5 - 12/04/2018 [facility] 36.5 g/dL 11:51 AM CDT CLINICS [place] RDW 14.2 10.0 - 12/04/2018 [facility] 15.0 % 11:51 AM CDT CLINICS [place] Platelet Count 222 150 - 450 12/04/2018 [facility] 10e9/L 11:51 AM CDT [facility]IN[facility] [place] % Neutrophils 74.4 % 12/04/2018 [facility] 11:51 AM CDT CL[facility] [place] % Lymphocytes 15.4 % 12/04/2018 [facility] 11:51 AM CDT CL[facility] [place] % Monocytes 7.3 % 12/04/2018 [facility] 11:51 AM CDT [facility] [place] % Eosinophils 2.7 % 12/04/2018 [facility] 11:51 AM CDT CL[facility] [place] % Basophils 0.2 % 12/04/2018 [place] 11:51 AM CDT CLINICS [place] Absolute 7.7 1.6 - 8.3 12/04/2018 [place] Neutrophil 10e9/L 11:51 AM CDT CLINICS [place] Absolute 1.6 0.8 - 5.3 12/04/2018 [place] Lymphocytes 10e9/L 11:51 AM CDT CLINICS [place] Absolute 0.8 0.0 - 1.3 12/04/2018 [place] Monocytes 10e9/L 11:51 AM CDT CLINICS [place] Absolute 0.3 0.0 - 0.7 12/04/2018 [place] Eosinophils 10e9/L 11:51 AM CDT CLINICS [place] Absolute 0.0 0.0 - 0.2 12/04/2018 [place] Basophils 10e9/L 11:51 AM CDT CLINICS [place] Diff Method Automated 12/04/2018 [place] Method 11:51 AM CDT CLINICS [place] Specimen Anatomical Collection Method Collection Time Receive d Time (Source) Location / / Volume Laterality Blood specimen 12/04/2018 11:22 9 (specimen) AM CDT 11:23 AM CDT Jada Brantley APRN, CNP LAB - BLOOD ORDERABLES Performing Organization Address City/State/ZIP Code Phon e Number [facility] [address] [place] [address] EKG 12-lead complete w/read - Clinics (12/04/2018 11:09 AM CDT) Narrative This result has an attachment that is no t available. Jada Brantley APRN MACHINE SETTER AND REPAIRER ECG ORDERABLES documented in this encounter Visit Diagnoses Diagnosis Preop general physical exam - Primary Other specified pre-operative examinatio n Tear of left rotator cuff, unspecified t ear extent Morbid obesity (H) Morbid obesity documented in this encounter Care Teams Package Delivery Room Service Runner Relationship Specialty Start Date End Date Juan José Michelle MD PCP - General Internal Medicine 05/08/15 01/09/21 Juan José Michelle MD Assigned PCP 07/26/16 12/30/20 [address] [place], [place] [id number] documented as of this encounter
--- OUTSIDE RECORDS SUMMARY | 2022-06-20 14:13 | XMS_ITS | Encounter Summary ---
:1945 Author Organization [facility] Address [address] [place] [address] Care Team Providers Name Role Phone Juan José Michelle MD Primary Care Provider Reason for Visit Reason Comments Derm Problem Arthritis Encounter Details Date Type Department Care Team Description 06/27/2016 Office Visit [facility] Juan José Michelle, Other secondary acute gout of multiple sites (Primary Dx); Clinic Angy WISDOM Non morbid obesity due to excess calorie s; [address], [address] Seborrheic keratosis, inflamed; [address] Benign essential hypertension; [place] [address] [place] Acute gouty arthropathy [phone] [address] Social History Tobacco Use Types Packs/Day [...] Sign Reading Time Taken Comments Blood Pressure 149/88 06/27/2016 6:07 PM CDT Pulse 66 06/27/2016 6:07 PM CDT Temperature 37 ??C (98.6 ??F) 06/27/2016 6:07 PM CDT Respiratory Rate - - Oxygen Saturation 95% 06/27/2016 6:07 PM CDT Inhaled Oxygen Concentration - - Weight 107 kg (236 lb) 06/27/2016 6:07 PM CDT Height 170.2 cm (5' 7) 06/27/2016 6:07 PM CDT Body Mass Index 36.96 06/27/2016 6:07 PM CDT documented in this encounter Progress Notes Juan José Michelle MD - 06/27/2016 6:07 PM CDT SUBJECTIVE: Ruddy Calhoun is a 70 year old male who presents to clinic today for the following health issues: Rash on Left ARm Gout=Left Foot And Ankle Planned weight loss not going well Also complains of people keratoses since last flu shot a year ago Problem list and histories reviewed & adjusted, as indicated. Additional history: Current Outpatient Prescriptions Medication Sig Dispense Refill ??? indomethacin (INDOCIN) 25 MG capsule Take 1 capsule (25 mg) by mouth 2 times daily (with meals) 42 capsule 0 ??? order for DME Equipment being ordered: CPAP Patient Ruddy Calhoun was set up at [place] on May 25, 2015. Patient received a [...] TBD with LOIS Antonio. AKBAR CABRERA ??? LISINOPRIL PO Take by mouth daily No Known Allergies ROS: Constitutional, HEENT, cardiovascular, pulmonary, gi and gu systems are negative, except as otherwise noted. OBJECTIVE: BP 149/88 mmHg Pulse 66 Temp(Src) 98.6 ??F (37 ??C) (Oral) Ht 5' 7 (1.702 m) Wt 236 lb (107.049 kg) BMI 36.95 kg/m2 SpO2 95% Body mass index is 36.95 kg/(m^2). Exam Chest was clear Cardiovascular S1 and S2 are physiologic Abdomen bowel sounds are normal there is no palpable organomegaly masses or tenderness Extremities 2+ pretibial edema His left foot was erythematous without point tenderness except for the lateral malleolus The keratosis on his left lateral arm was treated with liquid nitrogen times two ASSESSMENT/PLAN: 1. HTN (hypertension) His blood pressure needs to be reevaluated when he's not having pain. - Basic metabolic panel (Ca, Cl, CO2, Creat, Gluc, K, Na, BUN) 2.Acute GoutyArthropathy arthropathy Will discontinue the Indocin continue naproxen for 40 mg b.i.d. I'm discuss starting allopurinol andthe patient will return to clinic for follow-up of his uric acid and reevaluation of his blood pressure. - Uric acid 3. Non morbid obesity due to excess calories He is encouraged to make sure that he was well hydrated and continue with nonweightbearing activities and progressing as able 4.Seborrheic keratosis inflamed Juan José Michelle MD [facility] TEAM LEADER documented in this encounter Nursing Notes Lianet Beck CMA - 06/27/2016 6:08 PM CDT Chief Complaint Patient presents with ??? Derm Problem ??? Arthritis Initial BP 149/88 mmHg Pulse 66 Temp(Src) 98.6 ??F (37 ??C) (Oral) Ht 5' 7 (1.702 m) Wt 236lb (107.049 kg) BMI 36.95 kg/m2 SpO2 95% Estimated body mass index is 36.95 kg/(m^2) as calculated from the following: Height as of this encounter: 5' 7 (1.702 m). Weight as of this encounter: 236 lb (107.049 kg). BP completed using cuff size: Lianet Beck MA documented in this encounter Plan of Treatment Not on filedocumented as of this encounter Procedures Procedure Name Priority Date/Time Associated Diagnosis Comme nts HC DESTRUCT BENIGN Routine 08/18/2016 3:50 PM Seborrheic LESION, UP TO 14 [employer]ING TEAM LEADER keratosis, inflamed URIC ACID Routine 06/27/2016 6:17 PM Results f or this CDT procedure are i n the results section. BASIC METABOLIC Routine 06/27/2016 6:17 PM Result s for this PANEL CDT procedure are i n the results section. documented in this encounter Results (ABNORMAL) Basic metabolic panel (Ca, Cl, CO2, Creat, Gluc, K, Na, BUN) (06/27/2016 6:17 PM CDT) Analysis Performed At Patho logist Time Signature Sodium 139 133 - 144 [place] mmol/L [facility] Potassium 3.7 3.4 - 5.3 [place] mmol/L [facility] Chloride 103 94 - 109 [place] mmol/L [facility] Carbon Dioxide 33 (H) 20 - 32 [place] mmol/L [facility] Anion Gap 3 3 - 14 [place] mmol/L [facility] Glucose 85 70 - 99 [place] mg/dL [facility] Urea Nitrogen 18 7 - 30 [place] mg/dL [facility] Creatinine 1.17 0.66 - [place] 1.25 mg/dL [facility] GFR Estimate 62 >60 [place] mL/min/1.7 CLINICS m2 [facility] Comment: Non GFR Calc GFR Estimate If Black 75 >60 mL/min/1.7m2 F [facility] Comment: GFR Calc Calcium 8.9 8.5 - 10.1 mg/dL [place] CLIN ICS [facility] Specimen Anatomical Collection Method Collection Time Receive d Time (Source) Location / / Volume Laterality Blood specimen 06/27/2016 6:17 PM 016 6:18 (specimen) CDT PM CDT Juan José Michelle MD LAB - BLOOD ORDERABLES Performing Organization Address City/State/ZIP Code Phon e Number [facility] [address] [place] [address] Uric acid (06/27/2016 6:17 PM CDT) athologist Signature Uric Acid 7.2 3.5 - 7.2 [facility] mg/dL [facility] Specimen Anatomical Collection Method Collection Time Receive d Time (Source) Location / / Volume Laterality Blood specimen 06/27/2016 6:17 PM 016 6:18 (specimen) CDT PM CDT Juan José Michelle MD LAB - BLOOD ORDERABLES Performing Organization Address City/State/ZIP Code Phon e Number [facility] [address] [place] [address] documented in this encounter Visit Diagnoses Diagnosis Other secondary acute gout of multiple s ites - Primary Non morbid obesity due to excess calorie s Seborrheic keratosis, inflamed Inflamed seborrheic keratosis Benign essential hypertension Essential hypertension, benign Acute gouty arthropathy documented in this encounter Care Teams Fittings Finisher Relationship Specialty Start Date End Date Juan José Michelle MD PCP - General Internal Medicine 05/08/15 01/09/21 documented as of this encounter
--- OUTSIDE RECORDS SUMMARY | 2022-06-20 14:13 | XMS_ITS | Encounter Summary ---
:1945 Author Organization [place] Address [address] [facility] [place] [address] Care Team Providers Name Role Phone Juan José Michelle MD Primary Care Provider Juan José Michelle MD Unavailable Juan José Michelle MD Unavailable Encounter Details Date Type Department Care Team Description 10/01/2016 Orders Only [facility] Adonis Grullon DIANNE (obs tructive sleep Sleep Centers J Luis Herbert PA-C apnea) (Primary Dx) [address] [place] [address] [address] [place] [address] [place] [address] Social History Tobacco Use Types Packs/Day [...] documented as of this encounter Progress Notes Adonis Grullon PA-C - 10/02/2016 12:07 PM CST New CPAP supplies ordered. Adonis Grullon PA-C NRY INSTALLER documented in this encounter Plan of Treatment Not on filedocumented as of this encounter Visit Diagnoses Diagnosis DIANNE (obstructive sleep apnea) - Primary Obstructive sleep apnea (adult) (pediatr ic) documented in this encounter Care Teams Construction Teacher Relationship Specialty Start Date End Date Juan José Michelle MD PCP - General Internal Medicine 05/08/15 01/09/21 Juan José Michelle MD PCP - Assigned PCP 07/26/16 11/17/18 [address] [place] [address] Juan José Michelle MD Assigned PCP 07/26/16 12/30/20 [address] [place] [address] documented as of this encounter
--- OUTSIDE RECORDS SUMMARY | 2022-06-20 14:13 | XMS_ITS | Encounter Summary ---
:1945 Author Organization [place] Address [address] [facility] [place] [address] Care Team Providers Name Role Phone Juan [...] Details Date Type Department Care Team Description 09/29/2016 Refill [facility] Juan José Michelle MD Medication Refill [place] [address] [facility] [address] [facility] [place] [address] [place] [address] [phone] Social History Tobacco Use Types Packs/Day Years [...] Telephone Encounter - Jacqueline No RN - 10/01/2016 2:47 PM CST Routing refill request to provider for review/approval because: Medication is reported/historical Please review refills. Jacqueline No RN ER WELDER Telephone Encounter - Lianet Beck CMA - 10/01/2016 11:15 AM GETTER WELDER Triamterene, Lisinopril Last Written Prescription Date: unk Last Fill Quantity: unk, # refills: unk Last Office Visit with [facility], [facility] or [facility] prescribing provider: 06/27/16 Next 5 appointments (look out 90 days) Nov 05, 2016 9:30 AM PHYSICAL with Juan José Michelle MD [facility] [address] [facility] [phone] POTASSIUM Date Value Ref Range Status 06/27/2016 3.7 3.4 - 5.3 mmol/L Final CREATININE Date Value Ref Range Status 06/27/2016 1.17 0.66 - 1.25 mg/dL Final BP Readings from Last 3 Encounters: 06/27/16 149/88 06/10/16 116/77 09/29/15 133/79 Lianet Beck MA ER WELDER documented in this encounter Plan of Treatment Not on filedocumented as of this encounter Visit Diagnoses Diagnosis HTN (hypertension) - Primary Unspecified essential hypertension Benign essential hypertension Essential hypertension, benign documented in this encounter Care Teams Clinical Field Specialist Relationship Specialty Start Date End Date Juan José Michelle MD PCP - General Internal Medicine 05/08/15 01/09/21 Juan José Michelle MD PCP - Assigned PCP 07/26/16 11/17/[address] [place] [address] Thomas Singleton MD PCP - General Internal Medicine 01/10/21 07/08/[address] [place] [phone] Thomas Giron MD PCP - General Internal Medicine 07/09/[address] [place] [address] Juan José Michelle MD Assigned PCP 07/26/16 12/30/[address] [place] [address] Adonis Grullon, Assigned Neuroscience 11/29/20 PA-C Provider [address] [place] [address] Adonis Grullon, Assigned Sleep Provider 11/29/20 02/24/21 PA-C [address] [place], [place] [phone] Thomas Singleton MD Assigned PCP 12/31/20 02/07/[address] [place] [phone] Ruddy Giron, Assigned Musculoskeletal 01/28/21 DPM Provider [address] [facility] [address] [place] [address] Juan José Michelle MD Assigned PCP 02/08/21 02/24/21 [address] [place] [phone] Thomas Singleton MD Assigned PCP 02/25/21 06/23/[address] [place] [phone] Thomas Giron MD Assigned PCP 06/24/21 [address] [place] [address] documented as of this encounter
--- OUTSIDE RECORDS SUMMARY | 2022-06-20 14:13 | XMS_ITS | Encounter Summary ---
:1945 Author Organization [place] Address [address] [place] [place] [address] Care Team Providers Name Role Phone Juan José Michelle MD Primary Care Provider Reason for Visit Reason Comments Fatigue (Routine) - Closed Specialty Diagnoses / Procedures Referred By Contact Refer red To Contact Sleep Medicine Diagnoses tcm titration Sleep Center Procedures PSG DIAGNOSTIC [address] [facility] [address] [place] [address] Phone: Referral ID Status Reason Start Date Expiration Date Visits Requ ested Visits Authorized [id number] Closed 08/18/2015 08/17/2016 1 1 Encounter Details Date Type Department Care Team Description 08/29/2015 Therapy Visit [facility] Sleep Noc turnal hypoxemia; [facility] DIANNE (obstructive sleep apnea ) [address] [facility] [address] [place] [address] Social History Tobacco Use Types Packs/Day [...] documented as of this encounter Progress Notes Pamela Hernandez - 08/30/2015 4:48 AM CST Completed a all night titration PSG per provider order. Preliminary AHI >20. A final therapeutic PAP pressure was achieved. Supine REM was not seen on therapeutic pressure. Patient reports feeling refreshed in AM. POT TENDER documented in this encounter Procedure Notes Ruddy Lewis MD Manav - 08/30/2015 5:50 PM CST Images from the original note were not included. SLEEP STUDY INTERPRETATION TITRATION STUDY Patient: Ruddy Calhoun Date of : 1945 Study Date: 08/29/2015 Referring Physician: MD Michelle Gary Ordering Physician: WILBERT Grullon Bennett Indications for Polysomnography: The patient is a 69 y old Male who is 5' 6 and weighs 234.1 lbs. His BMI is 38.1, Hickory sleepiness scale is 9/24 and neck size is 17. Relevant medical history includes DIANNE noted on previous sleep study. A full night polysomnogram PAP titration was performed. Polysomnogram Data: A full night polysomnogram recorded the standard physiologic parameters including EEG, EOG, EMG, ECG, nasal and oral airflow. Respiratory parameters of chest and abdominal movementswere recorded with respiratory inductance plethysmography. Oxygen saturation was recorded by pulse oximetry. Treatment PSG: Sleep Architecture: The total recording time of the study was 364.7 minutes. The total sleep time was 260.5 minutes. Sleep latency was 11.0 minutes. REM latency was 127.5 minutes. Arousal index was 9.4 arousals per hour. Sleep efficiency was 71.4%. Wake after sleep onset was 42.0 minutes. The patient spent 6.0% of total sleep time in Stage N1, 80.4% in Stage N2, 0.0% in Stage N3 and 13.6% in REM. Respiration: Sleep disordered breathing noted on the patients previous sleep study was nearly fully resolved with CPAP therapy once adequate pressures were reached. Of note the patient did not have REMsupine while on his final CPAP pressure. ??? The patient was titrated at pressures ranging from 7 cmH2O up to 11 cmH2O. The optimal pressure achieved was 11 cmH2O with a residual AHI of 4.7 events per hour. Time in REM supine on final pressure was - minutes. ??? Snoring - was improved on therapy. ??? Respiratory rate and pattern - was notable for normal respiratory rate and pattern. ??? Sustained Sleep Associated Hypoventilation - Transcutaneous carbon dioxide monitoring was used, however significant hypoventilation was not present. ??? Sleep Associated Hypoxemia - (Greater than 5 minutes O2 sat below 89%) was present. Baseline oxygen saturation was 92.9%. Lowest oxygen saturation was 82.0%. Time spent below 89% was 11.6 minutes. Movement Activity: ??? Periodic Limb Activity - There were 9 PLMs during the entire study. The PLM index was 2.1 movements per hour. The PLM Arousal Index was 0.9 per hour. ??? REM EMG Activity - Excessive muscle activity was not present. ??? Nocturnal Behavior - Abnormal sleep related behaviors were not noted. ??? Bruxism - None apparent. Cardiac Summary: Sinus, intermittent honey and tachy cardia The average pulse rate was 75.7 bpm. The minimum pulse rate was 39.1 bpm while the maximum pulse rate was 103.0 bpm. Assessment: ??? Severe DIANNE and hypoxemia noted on prior sleep study. o Sleep disordered breathing noted on the patients previous sleep study was nearly fully resolved with CPAP therapy once adequate pressures were reached. Of note the patient did not have REM supine while on his final CPAP pressure. Recommendations: ??? Treatment options include: 1. Autotitration CPAP 2. If patient is placed on a fixed CPAP recommend pressures of at least 11cm of H2O and lateral positioning. 3. Recommend clinical follow up with sleep management team, including review of compliance measures. ??? Advise regarding the risks of drowsy driving. ??? Suggest optimizing sleep hygiene and avoiding sleep deprivation. ??? Weight management Diagnostic Code(s): G47.33, G47.36, G47.9 Ruddy Lewis MD POT TENDER documented in this encounter Plan of Treatment Not on filedocumented as of this encounter Procedures Procedure Name Priority Date/Time Associated Diagnosis Comme nts AIR ANALYST COMPREHENSIVE SLEEP Routine 08/31/2015 [place] hypoxemia DIANNE (obstructive sleep apnea ) documented in this encounter Results Comprehensive Sleep Study (08/31/2015) Narrative This result has an attachment that is no t available. Adonis Grullon PA-C PROCEDURES documented in this encounter Visit Diagnoses Diagnosis Nocturnal hypoxemia Hypoxemia DIANNE (obstructive sleep apnea) Obstructive sleep apnea (adult) (pediatr ic) documented in this encounter Care Teams Lead Radiologic Technologist Relationship Specialty Start Date End Date Juan José Michelle MD PCP - General Internal Medicine 05/08/15 01/09/21 documented as of this encounter
--- OUTSIDE RECORDS SUMMARY | 2022-06-20 14:13 | XMS_ITS | Encounter Summary ---
:1945 Author Organization [place] Address [address] [facility] [place] [place] [address] Care Team Providers Name Role Phone Juan José Michelle MD Primary Care Provider Reason for Visit Reason Comments Arthritis left foot Encounter Details Date Type Department Care Team Description 06/10/2016 Office Visit [facility] Jada Brantley Acute idi opathic gout Clinic [place]on APRN INTENSIVE CARE MEDICINE SPECIALIST of left foot (Primary [address] [place] [address] Social History Tobacco Use Types [...] Sign Reading Time Taken Comments Blood Pressure 116/77 06/10/2016 3:32 PM CDT Pulse 98 06/10/2016 3:32 PM CDT Temperature 37.4 ??C (99.4 ??F) 06/10/2016 3:32 PM CDT Respiratory Rate - - Oxygen Saturation 95% 06/10/2016 3:32 PM CDT Inhaled Oxygen Concentration - - Weight 99.8 kg (220 lb) 06/10/2016 3:32 PM CDT Height 167.6 cm (5' 6) 06/10/2016 3:32 PM CDT Body Mass Index 35.51 06/10/2016 3:32 PM CDT documented in this encounter Patient Instructions Patient InstructionsJada Brnatley APRN CNP - 06/10/2016 4:02 PM CDT Begin taking the gout 2 tablets twice a day with meals until pain lessens Then decrease the dose to 1 tablet twice a day ; When the pain decreases again reduce to one pill a day And then stop when pain is gone Follow up with Dr Michelle as planned documented in this encounter Progress Notes Jada Brantley APRN CNP - 06/20/2016 10:04 AM CDT Quick Note: The uric acid level indicates that you have been experiencing a gout attack. But the WBC elevation usually tells us you have an infection. After speaking a minute ago and your telling me that the gout symptoms are improving on the indocinand that you do not have fever, chills or body aches and no ongoing infectious source I think it will be okay to wait until your appointment with Dr Michelle next week to recheck this. However if you have any worsening symptoms such as those above please come back in to see me. Please send result letter to patient Jada Brantley APRN CNP - 06/10/2016 3:26 PM CDT SUBJECTIVE: Ruddy Calhoun is a 70 year old male who presents to clinic today for the following health issues: Gout Duration: 3 days of left foot pain over the top. Has never involved this foot before. But has had bouts of gout involving the right foot in the past that did not require tx. He just uses home remedies and black marinelli juice. This is the most painful bout ever. Description Location: big toe and foot - left Joint Swelling: YES Redness: YES- some Pain intensity: 8/10, 10 with pressure Accompanying signs and symptoms: None History Previous history of gout: YES-as above Trauma to the area: no Family hx : positive for gout in father and brother who both take allopurinol Precipitating factors: Alcohol usage: none, but has been eating asparagus Diuretic use: no Recent illness: no Therapies tried and outcome: marinelli capsules, Aleve- helps a litle bit Problem list and histories reviewed & adjusted, as indicated. Additional history: as documented Patient Active Problem List Diagnosis ??? HTN (hypertension) ??? DIANNE (obstructive sleep apnea) ??? Sleep related hypoventilation/hypoxemia in other disease Past Surgical History Procedure Laterality Date ??? Colon surgery Social History Substance Use Topics ??? Smoking status: Former Smoker Types: Cigars ??? Smokeless tobacco: Never Used ??? Alcohol Use: No Comment: not for about 35 years (as of 2014) Family History Problem Relation Age of Onset ??? CEREBROVASCULAR DISEASE Mother ??? DIABETES Sister Current Outpatient Prescriptions Medication Sig Dispense Refill ??? indomethacin (INDOCIN) 25 MG capsule Take 1 capsule (25 mg) by mouth 2 times daily (with meals) 42 capsule 0 ??? LISINOPRIL PO Take by mouth daily ??? order for DME Equipment being ordered: CPAP Patient Ruddy Calhoun was set up at [facility] on May 25, 2015. Patient received a [...] Antonio. AKBAR CABRERA No Known Allergies ROS: Constitutional, HEENT, cardiovascular, pulmonary, gi and gu systems are negative, except as otherwise noted. OBJECTIVE: BP 116/77 mmHg Pulse 98 Temp(Src) 99.4 ??F (37.4 ??C) (Tympanic) Ht 5' 6 (1.676 m) Wt 220 lb (99.791 kg) BMI 35.53 kg/m2 SpO2 95% Body mass index is 35.53 kg/(m^2). GENERAL: healthy, alert and mod to severe distress MS: no gross musculoskeletal defects noted, minimal edema SKIN: blotchy violaceous area of pain of dorsum of left foot over talar region, less pain and discoloration of left great toe PSYCH: mentation appears normal, affect normal Diagnostic Test Results: pending ASSESSMENT/PLAN: ICD-10-CM 1. Acute idiopathic gout of left foot M10.072 CBC with platelets differential Uric acid Basic metabolic panel (Ca, Cl, CO2, Creat, Gluc, K, Na, BUN) indomethacin (INDOCIN) 25 MG capsule Patient Instructions Begin taking the gout 2 tablets twice a day with meals until pain lessens Then decrease the dose to 1 tablet twice a day ; When the pain decreases again reduce to one pill a day And then stop when pain is gone Follow up with Dr Michelle as planned Jada Brantley APRN CNP [facility] documented in this encounter Nursing Notes Caitlyn Gallo MA - 06/10/2016 3:35 PM CDT Chief Complaint Patient presents with ??? Arthritis left foot BP 116/77 mmHg Pulse 98 Temp(Src) 99.4 ??F (37.4 ??C) (Tympanic) Ht 5' 6 (1.676 m) Wt 220 lb (99.791 kg) BMI 35.53 kg/m2 SpO2 95% Estimated body mass index is 35.53 kg/(m^2) as calculated from the following: Height as of this encounter: 5' 6 (1.676 m). Weight as of this encounter: 220 lb (99.791 kg). BP completed using cuff size: denver Gallo CMA documented in this encounter Plan of Treatment Not on filedocumented as of this encounter Procedures Procedure Name Priority Date/Time Associated Comments Diagnosis CBC WITH PLATELETS & STAT 06/10/2016 4:15 PM Acute idiopath ic Results for this DIFFERENTIAL CDT gout of left foot procedure are in the results section. URIC ACID Routine 06/10/2016 4:15 PM Acute idiopathic Resul ts for this CDT gout of left foot procedure are in the results section. BASIC METABOLIC PANEL Routine 06/10/2016 4:15 PM Acute idiopat hic Results for this CDT gout of left foot procedure are in the results section. documented in this encounter Results (ABNORMAL) Basic metabolic panel (Ca, Cl, CO2, Creat, Gluc, K, Na, BUN) (06/10/2016 4:15 PM CDT) Analysis Performed At Patho logist Time Signature Sodium 139 133 - 144 [place] mmol/L [facility] Potassium 3.5 3.4 - 5.3 [place] mmol/L [facility] Chloride 101 94 - 109 [place] mmol/L [facility] Carbon Dioxide 32 20 - 32 [place] mmol/L [facility] Anion Gap 6 3 - 14 [place] mmol/L [facility] Glucose 89 70 - 99 [place] mg/dL [facility] Urea Nitrogen 17 7 - 30 [place] mg/dL [facility] Creatinine 1.23 0.66 - [place] 1.25 mg/dL [facility] GFR Estimate 58 (L) >60 [place] mL/min/1.7 CLINICS m2 [facility] Comment: Non GFR Calc GFR Estimate If Black 70 >60 mL/min/1.7m2 [facility] Comment: GFR Calc Calcium 8.7 8.5 - 10.1 mg/dL [place] CLIN ICS [facility] Specimen Anatomical Collection Method Collection Time Receive d Time (Source) Location / / Volume Laterality Blood specimen 06/10/2016 4:15 PM 016 4:16 (specimen) CDT PM CDT Jada Brantley APRN INTENSIVE CARE MEDICINE SPECIALIST LAB - BLOOD ORDERABLES Performing Organization Address City/State/ZIP Code Phon e Number [facility] [address] [place] [address] (ABNORMAL) Uric acid (06/10/2016 4:15 PM CDT) P athologist Signature Uric Acid 8.7 (H) 3.5 - 7.2 [facility] mg/dL [facility] Specimen Anatomical Collection Method Collection Time Receive d Time (Source) Location / / Volume Laterality Blood specimen 06/10/2016 4:15 PM 016 4:16 (specimen) CDT PM CDT Jada Brantley APRN INTENSIVE CARE MEDICINE SPECIALIST LAB - BLOOD ORDERABLES Performing Organization Address City/State/ZIP Code Phon e Number [facility] [address] [place] [address] (ABNORMAL) CBC with platelets differential (06/10/2016 4:15 PM CDT) [facility] gist Method Time Signature WBC 14.6 (H) 4.0 - [facility] 11.0 CLINICS 10e9/L [place] RBC Count 4.89 4.4 - 5.9 [place] 10e12/L [facility] [place] Hemoglobin 14.6 13.3 - [facility] 17.7 g/dL [facility] [place] Hematocrit 44.0 40.0 - [place] 53.0 % [facility] [place] MCV 90 78 - 100 [place] fl [facility] [place] MCH 29.9 26.5 - [facility] 33.0 pg [facility] [place] MCHC 33.2 31.5 - [facility] 36.5 g/dL [facility] [place] RDW 14.0 10.0 - [facility] 15.0 % [facility] [place] Platelet Count 230 150 - 450 [place] 10e9/L [facility] [place] Diff Method Automated [place] Method [facility] [place] % Neutrophils 83.3 % [place] [facility] [place] % Lymphocytes 7.3 % [place] [facility] [place] % Monocytes 9.0 % [place] [facility] [place] % Eosinophils 0.3 % [place] [facility] [place] % Basophils 0.1 % [facility] [place] Absolute 12.2 (H) 1.6 - 8.3 [place] Neutrophil 10e9/L [facility] [place] Absolute 1.1 0.8 - 5.3 [place] Lymphocytes 10e9/L [facility] [place] Absolute 1.3 0.0 - 1.3 [place] Monocytes 10e9/L [facility] [place] Absolute 0.1 0.0 - 0.7 [place] Eosinophils 10e9/L [facility] [place] Absolute 0.0 0.0 - 0.2 [place] Basophils 10e9/L [facility] [place] Specimen Anatomical Collection Method Collection Time Receive d Time (Source) Location / / Volume Laterality Blood specimen 06/10/2016 4:15 PM 016 4:16 (specimen) CDT PM CDT Jada Brantley PARI MUTUAL TICKET CHECKER INTENSIVE CARE MEDICINE SPECIALIST LAB - BLOOD ORDERABLES Performing Organization Address City/State/ZIP Code Phon e Number [facility] [address] [place] [address] documented in this encounter Visit Diagnoses Diagnosis Acute idiopathic gout of left foot - Patricia cari documented in this encounter Care Teams Worm Farmer Relationship Specialty Start Date End Date Juan José Michelle MD PCP - General Internal Medicine 05/08/15 01/09/21 documented as of this encounter
--- OUTSIDE RECORDS SUMMARY | 2022-06-20 14:13 | XMS_ITS | Encounter Summary ---
:1945 Author Organization [place] Address [address] [place] [address] Care Team Providers Name Role Phone Juan José Michelle MD Primary Care Provider Juan José Michelle MD Unavailable Juan José Michelle MD Unavailable Reason for Referral Diagnostic Procedure Outpatient - Closed Specialty Diagnoses / Procedures Referred By Contact Refer red To Contact Diagnoses Colon cancer screening Juan José Michelle MD [facility] [address] [facility] [address] [facility] [place] [address] [place] [phone] Fax: Referral ID Status Reason Start Date Expiration Date Visits Requ ested Visits Authorized [id number] Closed 11/06/2016 11/06/2017 1 1 PACKER OPERATOR Reason for Visit Reason Comments Wellness Visit Throat Pain Musculoskeletal Problem foot Encounter Details Date Type Department Care Team Description 11/05/2016 Office Visit [facility] Juan José Michelle 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); Clinic J Luis WISDOM Seborrheic keratosis, inflamed; [address] [facility], [address] [facility] DIANNE (obstructive sleep apnea); [address] Essential hypertension; [place] [address] [place] Fatigue, unspecified type; [phone] [id number] Screening for prostate cancer; [phone] Osteopenia; (Work) Pruritus ani; [phone] Colon cancer sc diana (Fax) Social History Tobacco Use Types Packs/Day [...] Sign Reading Time Taken Comments Blood Pressure 132/78 11/05/2016 9:[address] PACKER OPERATOR Pulse 73 11/05/2016 9:[address] PACKER OPERATOR Temperature 36.6 ??C (97.9 ??F) 11/05/2016 9:[address] PACKER OPERATOR Respiratory Rate - - Oxygen Saturation 95% 11/05/2016 9:[address] PACKER OPERATOR Inhaled Oxygen Concentration - - Weight 105.5 kg (232 lb 9.6 oz) 11/05/2016 9:[address] PACKER OPERATOR Height 170.2 cm (5' 7) 11/05/2016 9:[address] PACKER OPERATOR Body Mass Index 36.43 11/05/2016 9:[address] PACKER OPERATOR documented in this encounter Patient Instructions Patient InstructionsMooringKiera - 11/05/2016 8:42 AM CST Preventive Health Recommendations: Male Ages 65 and [...] such as glaucoma, macular degeneration and cataracts. PACKER OPERATOR documented in this encounter Progress Notes Juan José Michelle MD - 11/11/2016 8:23 AM CST I called the patient and informed of results. The following changes were made to treatment: Called to review lab reports. All of his lab studies were essentially normal except for a fasting blood sugar of 104. His main problem is related to obesity and his painful feet which are probably intimately related. He was encouraged to seriously undertake a regular exercise routine such as biking toavoid excessive pressure on his feet and to reduce the carbohydrate intake in his diet. He was also encouraged to be seen by podiatry to evaluate alternatives for his feet. Patient voices understanding and will contact me with any further questions. Juan José Michelle MD PACKER OPERATOR Juan José Michelle MD - 11/05/2016 8:42 AM CST SUBJECTIVE: Ruddy Calhoun is a 71 year old male who presents for Preventive Visit. Patient, who has a history of flat feet and gout, notes that feet have been improving. Patient reports during trip to [facility] in late August and early September, he increased frequency of walking. Since returning to the , he reports maintaining walking regimen with improvement of local weather. Previou sly he reports walking 5-10 minutes daily. Patient reports beginning a weight loss program but has not seen weight loss over a few pounds and has stabilized. He reports changes in night vision and has not seen cover remover in 3 years. Patient also complains of intermittent left shoulder pain following a twisting injury while lifting boxes. He reports pain upon stretching wrong or if he sleeps on left side. Denies numbness or tingling Are you in the first 12 months of your Medicare Part B coverage? No Healthy Habits: ?? Do you get at least three servings of calcium containing foods daily (dairy, green leafy vegetables, etc.)? yes ?? Amount of exercise or daily activities, outside of work: NO ?? Problems taking medications regularly No ?? Medication side effects: No ?? Have you had an eye exam in the past two years? no ?? Do you see a dentist twice per year? yes ?? Do you have sleep apnea, excessive snoring or daytime drowsiness?yes COGNITIVE SCREEN 1) Repeat 3 items (Banana, Thomson, Chair) 2) Clock draw: NORMAL 3) 3 item recall: Recalls 3 objects Results: NORMAL clock, 1-2 items recalled: COGNITIVE IMPAIRMENT LESS LIKELY Mini-CogTM Copyright S Alicia. Licensed by the author for use in [facility]; reprintedwith permission ([email or web address]). All rights reserved. All Histories reviewed and updated in EPIC as appropriate. Social History Substance Use Topics ??? Smoking status: Former Smoker Types: Cigars ??? Smokeless tobacco: Never Used ??? Alcohol use No Comment: not for about 35 years (as of 2014) The patient does not drink >3 drinks per day nor >7 drinks per week. Today's PHQ-2 Score: PHQ-2 (??1998 [employer]) 06/10/2016 Q1: Little interest or pleasure in doing things 0 Q2: Feeling down, depressed or hopeless 0 PHQ-2 Score 0 Do you feel safe in your environment - Yes Do you have a Health Care Directive?: No: Advance care planning reviewed with patient; information given to patient to review. Current providers sharing in care for this patient include: Patient Care Team: Juan José Michelle MD as PCP - General (Internal Medicine) ?? Hearing impairment: No ?? Ability to successfully perform activities of daily living: Yes, no assistance needed ?? Home safety: none identified The following health maintenance items are reviewed in [facility] and correct as of today: Health Maintenance Topic Date Due ??? ADVANCE DIRECTIVE PLANNING Q5 YRS (NO INBASKET) 1964 ??? HEPATITIS C SCREENING 1964 ??? COLON CANCER SCREEN (SYSTEM ASSIGNED) 1996 ??? AORTIC ANEURYSM SCREENING (SYSTEM ASSIGNED) 2011 ??? INFLUENZA VACCINE (SYSTEM ASSIGNED) 05/16/2016 ??? FALL RISK ASSESSMENT 06/10/2017 ??? LIPID SCREEN Q5 YR MALE (SYSTEM ASSIGNED) 10/31/2020 ??? TETANUS IMMUNIZATION (SYSTEM ASSIGNED) 09/20/2024 ??? PNEUMOCOCCAL Completed ROS: C: NEGATIVE for fever, chills, change in weight I: NEGATIVE for worrisome rashes, moles or lesions E: NEGATIVE for vision changes or irritation E/M: NEGATIVE for ear, mouth and throat problems R: NEGATIVE for significant cough or SOB B: NEGATIVE for masses, tenderness or discharge CV: NEGATIVE for chest pain, palpitations or peripheral edema GI: NEGATIVE for nausea, abdominal pain, heartburn, or change in bowel habits : NEGATIVE for frequency, dysuria, or hematuria M: POSITIVE intermittent mild hip pain NEGATIVE for other significant arthralgias or myalgia N: NEGATIVE for weakness, dizziness or paresthesias E: NEGATIVE for temperature intolerance, skin/hair changes H: NEGATIVE for bleeding problems P: NEGATIVE for changes in mood or affect Current Outpatient Prescriptions Medication Sig Dispense Refill ??? lisinopril-hydrochlorothiazide (PRINZIDE/ZESTORETIC) 20-25 MG per tablet TAKE 1 TABLET BY MOUTH EVERY DAY 90 tablet 2 ??? indomethacin (INDOCIN) 25 MG capsule Take 1 capsule (25 mg) by mouth 2 times daily (with meals) 42 capsule 0 ??? order for DME Equipment being ordered: CPAP Patient Ruddy Calhoun was set up at [facility] on May 25, 2015. Patient received a [...] LOIS Antonio. AKBAR CABRERA No Known Allergies This document serves as a record of the services and decisions personally performed and made by GaryL. Miguel Angel MD. It was created on his/her behalf by Vickie Tejada, a trained biomedical engineering internship. The creation of this document is based the provider's statements to the biomedical engineering internship. Scribe Vickie Tejada 12:54 PM, November 05, 2016 OBJECTIVE: BP 132/78 (BP Location: Left arm, Patient Position: Chair, Cuff Size: Adult Large) Pulse 73 Temp 97.9 ??F (36.6 ??C) (Tympanic) Ht 1.702 m (5' 7) Wt 105.5 kg (232 lb 9.6 oz) SpO2 95% BMI 36.43 kg/m2 Estimated body mass index is 36.43 kg/(m^2) as calculated from the following: Height as of this encounter: 1.702 m (5' 7). Weight as of this encounter: 105.5 kg (232 lb 9.6 oz). EXAM: GENERAL: healthy, alert and no distress EYES: Eyes grossly normal to inspection, PERRL and conjunctivae and sclerae normal HENT: ear canals and TM's normal, nose and mouth without ulcers or lesions. Poor dentition NECK: no adenopathy, no asymmetry, masses, or scars and thyroid normal to palpation RESP: lungs clear to auscultation - no rales, rhonchi or wheezes CV: regular rate and rhythm, normal S1 S2, no S3 or S4, no murmur, click or rub, no peripheral edemaand peripheral pulses strong ABDOMEN: soft, nontender, no hepatosplenomegaly, no masses and bowel sounds normal. : lichenification of the alexis area including the anus and buttocks with excoriations of his buttocks MS: no gross musculoskeletal defects noted EXTREMITIES: nontender 1-2+ pretibial edema, feet are flat and he has bilateral bunions; Left > Right SKIN: no suspicious lesions or rashes, moderate seborrheic keratoses NEURO: Normal strength and tone, mentation intact and speech normal PSYCH: mentation appears normal, affect normal/bright ASSESSMENT / PLAN: 1. Idiopathic chronic gout of multiple sites without tophus - UA reflex to Microscopic and Culture - Uric acid 2. Seborrheic keratosis, inflamed 3. DIANNE (obstructive sleep apnea) 4. Essential hypertension 5. Fatigue, unspecified type 6. Screening for prostate cancer - UA reflex to Microscopic and Culture - CBC with platelets - Comprehensive metabolic panel - Lipid panel reflex to direct LDL - Prostate spec antigen screen - TSH with free T4 reflex 7. Osteopenia - Vitamin D Deficiency 8. Pruritus ani Follow up for medication check Schedule colonoscopy for routine screening End of Life Planning: Patient currently has an advanced directive: No. I have verified the patient's ablity to prepare an advanced directive/make health care decisions. Literature was provided to assist patient in preparingan advanced directive. COUNSELING: Reviewed preventive health counseling, as reflected in patient instructions Regular exercise Healthy diet/nutrition Vision screening Dental care Estimated body mass index is 36.43 kg/(m^2) as calculated from the following: Height as of this encounter: 1.702 m (5' 7). Weight as of this encounter: 105.5 kg (232 lb 9.6 oz). Weight management plan: Discussed healthy diet and exercise guidelines and patient will follow up in12 months in clinic to re-evaluate. reports that [...] Lung CA Screening Juan José Michelle MD [facility] The information in this document, created by the biomedical engineering internship for me, accurately reflects the services I personally performed and the decisions made by me. I have reviewed and approved this document for accuracy prior to leaving the patient care area. Juan José Michelle MD 10:09 AM, 11/05/16 PACKER OPERATOR documented in this encounter Nursing Notes Kiera Ocasio - 11/05/2016 9:30 AM CST Chief Complaint Patient presents with ??? Wellness Visit ??? Throat Pain ??? Musculoskeletal Problem foot Initial BP 132/78 (BP Location: Left arm, Patient Position: Chair, Cuff Size: Adult Large) Pulse 73 Temp 97.9 ??F (36.6 ??C) (Tympanic) Ht 5' 7 (1.702 m) Wt 232 lb 9.6 oz (105.5 kg) SpO2 95% BMI 36.43kg/m2 Estimated body mass index is 36.43 kg/(m^2) as calculated from the following: Height as of this encounter: 5' 7 (1.702 m). Weight as of this encounter: 232 lb 9.6 oz (105.5 kg). Medication Reconciliation: karoline Ocasio MA November 05, 2016 9:20 AM PACKER OPERATOR documented in this encounter Plan of Treatment Scheduled Referrals Name Type Priority Associated Diagnoses Order S chedule GASTROENTEROLOGY ADULT REF Referral Routine Colon cancer O rdered: 11/06/2016 PROCEDURE ONLY screening documented as of this encounter Procedures Procedure Name Priority Date/Time Associated Comments Diagnosis UA MACROSCOPIC WITH Routine 11/05/2016 9:59 AM Idiopathic treating engineer helper amy Results for this REFLEX TO MICROSCOPIC ROAD PACKER OPERATOR gout of multiple pr ocedure are in AND CULTURE sites without the results tophus section. Seborrheic keratosis, infla med DIANNE (obstructive sleep apnea) Essential hypertension Fatigue, unspecified type Screening for prostate cancer VITAMIN D DEFICIENCY Routine 11/05/2016 9:59 AM Idiopathic chr onic Results for this SCREENING ROAD PACKER OPERATOR gout of multiple procedure a re in sites without the results tophus section. Osteopenia URIC ACID Routine 11/05/2016 9:59 AM Idiopathic chronic Res ults for this ROAD PACKER OPERATOR gout of multiple procedure a re in sites without the results tophus section. TSH WITH FREE T4 Routine 11/05/2016 9:59 AM Idiopathic chronic Results for this REFLEX ROAD PACKER OPERATOR gout of multiple procedure a re in sites without the results tophus section. Seborrheic keratosis, infla med DIANNE (obstructive sleep apnea) Essential hypertension Fatigue, unspecified type Screening for prostate cancer PROSTATE SPECIFIC Routine 11/05/2016 9:59 AM Idiopathic chroni c Results for this ANTIGEN SCREEN ROAD PACKER OPERATOR gout of multiple procedure are in sites without the results tophus section. Seborrheic keratosis, infla med DIANNE (obstructive sleep apnea) Essential hypertension Fatigue, unspecified type Screening for prostate cancer LIPID REFLEX TO DIRECT Routine 11/05/2016 9:59 AM Idiopathic c hronic Results for this LDL PANEL ROAD PACKER OPERATOR gout of multiple procedure a re in sites without the results tophus section. Seborrheic keratosis, infla med DIANNE (obstructive sleep apnea) Essential hypertension Fatigue, unspecified type Screening for prostate cancer COMPREHENSIVE Routine 11/05/2016 9:59 AM Idiopathic chronic Re sults for this METABOLIC PANEL ROAD PACKER OPERATOR gout of multiple procedur e are in sites without the results tophus section. Seborrheic keratosis, infla med DIANNE (obstructive sleep apnea) Essential hypertension Fatigue, unspecified type Screening for prostate cancer CBC WITH PLATELETS Routine 11/05/2016 9:59 AM Idiopathic chron ic Results for this ROAD PACKER OPERATOR gout of multiple procedure a re in sites without the results tophus section. Seborrheic keratosis, infla med DIANNE (obstructive sleep apnea) Essential hypertension Fatigue, unspecified type Screening for prostate cancer documented in this encounter Results Uric acid (11/05/2016 9:[address] PACKER OPERATOR) P athologist Signature Uric Acid 5.3 3.5 - 7.2 [facility] mg/dL [facility] Specimen Anatomical Collection Method Collection Time Receive d Time (Source) Location / / Volume Laterality Blood specimen 11/05/2016 9:59 AM 017 (specimen) ROAD PACKER OPERATOR 10:[address] PACKER OPERATOR Juan José Michelle MD LAB - BLOOD ORDERABLES Performing Organization Address City/State/ZIP Code Phon e Number [facility] [address] [place] [address] Vitamin D Deficiency (11/05/2016 9:[address] PACKER OPERATOR) athologist Signature Vitamin D 37 20 - 75 [facility] Deficiency ug/L [place] [facility] [employer] [facility] [employer] [facility] Comment: Season, race, dietary intake, and treatm ent affect the concentration of 96-vftdekj-Tkzeyam D. Values may decrea se during winter months and increase during summer months. Values 20-29 ug/L may indicate Vitamin D insufficiency and values <20 ug/L may indicate Vitami n D deficiency. Vitamin D determination is routinely pe rformed by an immunoassay specific for 25 hydroxyvitamin D3. ??If an individua l is on vitamin D2 (ergocalciferol) supplementation, please specify 25 [place] v itamin D2 and D3 level determination by LCMSMS test VITD23. Specimen Anatomical Collection Method Collection Time Receive d Time (Source) Location / / Volume Laterality Blood specimen 11/05/2016 9:59 AM 017 (specimen) ROAD PACKER OPERATOR 10:[address] PACKER OPERATOR Juan José Michelle MD LAB - BLOOD ORDERABLES Performing Organization Address City/State/ZIP Code Phon e Number [address] [address] [facility] TSH with free T4 reflex (11/05/2016 9:[address] PACKER OPERATOR) athologist Signature TSH 2.54 0.40 - 4.00 [facility] mU/L [facility] Specimen Anatomical Collection Method Collection Time Receive d Time (Source) Location / / Volume Laterality Blood specimen 11/05/2016 9:59 AM 017 (specimen) ROAD PACKER OPERATOR 10:[address] PACKER OPERATOR Juan José Michelle MD LAB - BLOOD ORDERABLES Performing Organization Address City/State/ZIP Code Phon e Number [facility] [address] [place] [address] Prostate spec antigen screen (11/05/2016 9:[address] PACKER OPERATOR) P athologist Signature PSA 0.66 0 - 4 ug/L [facility] Comment: Assay Method: Chemiluminescence using Siemens Beaver analyzer Specimen Anatomical Collection Method Collection Time Receive d Time (Source) Location / / Volume Laterality Blood specimen 11/05/2016 9:59 AM 017 (specimen) ROAD PACKER OPERATOR 10:[address] PACKER OPERATOR Juan José Michelle MD LAB - BLOOD ORDERABLES Performing Organization Address City/State/ZIP Code Phon e Number [facility] [address] [place] [address] [phone] [facility] [address] [place] [address], [phone] (ABNORMAL) Lipid panel reflex to direct LDL (11/05/2016 9:[address] PACKER OPERATOR) [facility] Method Time Signature Cholesterol 179 <200 [place] mg/dL [facility] Triglycerides 96 <150 [place] mg/dL [facility] HDL Cholesterol 57 >39 mg/dL [facility] LDL Cholesterol 103 (H) <100 [place] Calculated mg/dL [facility] Comment: Above desirable: ??100-129 mg/dl Borderline High: ??130-159 mg/dL High: ? 160-189 mg/dL Very high: ? >189 mg/dl Non HDL Cholesterol 122 <130 mg/dL [facility] Specimen Anatomical Collection Method Collection Time Receive d Time (Source) Location / / Volume Laterality Blood specimen 11/05/2016 9:59 AM 017 (specimen) ROAD PACKER OPERATOR 10:[address] PACKER OPERATOR Juan José Michelle MD LAB - BLOOD ORDERABLES Performing Organization Address City/State/ZIP Code Phon e Number [facility] [address] [place] [address] (ABNORMAL) Comprehensive metabolic panel (11/05/2016 9:[address] PACKER OPERATOR) [facility] Method Time Signature Sodium 141 133 - 144 [place] mmol/L [facility] Potassium 3.8 3.4 - 5.3 [place] mmol/L [facility] Chloride 100 94 - 109 [place] mmol/L [facility] Carbon Dioxide 32 20 - 32 [place] mmol/L [facility] Anion Gap 9 3 - 14 [place] mmol/L [facility] Glucose 104 (H) 70 - 99 [place] mg/dL [facility] Urea Nitrogen 15 7 - 30 [place] mg/dL [facility] Creatinine 1.09 0.66 - [place] 1.25 mg/dL [facility] GFR Estimate 67 >60 [place] mL/min/1.7 CLINICS m2 [facility] Comment: Non GFR Calc GFR Estimate If Black 81 >60 mL/min/1.7m2 F [facility] Comment: GFR Calc Calcium 9.6 8.5 - 10.1 mg/dL [place] CLIN ICS [facility] Bilirubin Total 0.6 0.2 - 1.3 mg/dL [facility] Albumin 3.7 3.4 - 5.0 g/dL [facility] Protein Total 7.5 6.8 - 8.8 g/dL [place] CL INICS [facility] Alkaline Phosphatase 69 40 - 150 U/L [facility] ALT 36 0 - 70 U/L [facility] AST 19 0 - 45 U/L [facility] Specimen Anatomical Collection Method Collection Time Receive d Time (Source) Location / / Volume Laterality Blood specimen 11/05/2016 9:59 AM 017 (specimen) ROAD PACKER OPERATOR 10:[address] PACKER OPERATOR Jua nJosé Michelle MD LAB - BLOOD ORDERABLES Performing Organization Address City/State/ZIP Code Phon e Number [facility] [address] [place] [address] CBC with platelets (11/05/2016 9:[address] PACKER OPERATOR) athologist Signature WBC 9.0 4.0 - 11.0 [place] 10e9/L [facility] RBC Count 4.84 4.4 - 5.9 [place] 10e12/L [facility] Hemoglobin 14.0 13.3 - [place] 17.7 g/dL [facility] [place] Hematocrit 43.4 40.0 - [place] 53.0 % [facility] MCV 90 78 - 100 [place] fl [facility] MCH 28.9 26.5 - [facility] 33.0 pg [facility] [place] MCHC 32.3 31.5 - [place] 36.5 g/dL [facility] RDW 14.9 10.0 - [facility] 15.0 % [facility] Platelet Count 221 150 - 450 [place] 10e9/L [facility] Specimen Anatomical Collection Method Collection Time Receive d Time (Source) Location / / Volume Laterality Blood specimen 11/05/2016 9:59 AM 017 (specimen) ROAD PACKER OPERATOR 10:[address] PACKER OPERATOR Juan José Michelle MD LAB - BLOOD ORDERABLES Performing Organization Address [facility]/ZIP Code Phon e Number [facility] [address] [facility] [address] [place] [address] (ABNORMAL) UA reflex to Microscopic and Culture (11/05/2016 9:[address] PACKER OPERATOR) [facility] Method Time Signature Color Urine Yellow [facility] Appearance Urine Clear [facility] Glucose Urine Negative NEG mg/dL [facility] Bilirubin Urine Negative NEG [facility] Ketones Urine Negative NEG mg/dL [facility] Specific [place] 1.020 1.003 - [place] Urine 1.035 [facility] Blood Urine Negative NEG [facility] pH Urine 7.5 (H) 5.0 - 7.0 [place] pH [facility] Protein Albumin Negative NEG mg/dL [place] Urine [facility] Urobilinogen 0.2 0.2 - 1.0 [place] Urine EU/dL [facility] Nitrite Urine Negative NEG [facility] Leukocyte Negative NEG [place] Esterase Urine [facility] Source Midstream [place] Urine [facility] Specimen Anatomical Collection Method Collection Time Receive d Time (Source) Location / / Volume Laterality Urine specimen 11/05/2016 9:59 AM 017 (specimen) ROAD PACKER OPERATOR 10:[address] PACKER OPERATOR Juan José Michelle MD LAB - URINE ORDERABLES Performing Organization Address City/[facility]/ZIP Code Phon e Number [facility] J LUIS [address] [place] [id number] documented in this encounter Visit Diagnoses Diagnosis 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 - Primary 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) Seborrheic keratosis, inflamed Inflamed seborrheic keratosis DINANE (obstructive sleep apnea) Obstructive sleep apnea (adult) (pediatr ic) Essential hypertension Unspecified essential hypertension Fatigue, unspecified type Screening for prostate cancer Special screening for malignant neoplasm of prostate Osteopenia Disorder of bone and cartilage, unspecif ied Pruritus ani Colon cancer screening Special screening for malignant neoplasm s, colon documented in this encounter Care Teams Ironworker Foreman Relationship Specialty Start Date End Date Juan José Michelle MD PCP - General Internal Medicine 05/08/15 01/09/21 Juan José Michelle MD PCP - Assigned PCP 07/26/16 11/17/18 [address] [place] [phone] Juan José Michelle MD Assigned PCP 07/26/16 12/30/20 [address] [place] [phone] documented as of this encounter
--- OUTSIDE RECORDS SUMMARY | 2022-06-20 14:13 | XMS_ITS | Encounter Summary ---
:1945 Author Organization [facility] [place] Address [address] [facility] [facility] [place] [address] Care Team Providers Name Role Phone Juan José Michelle MD Primary Care Provider Reason for Visit Reason Onset Date Comments Results 08/18/2015 oximetry Encounter Details Date Type Department Care Team Description 08/18/2015 Telephone [facility] Adonis Grullon ra, Results (oximetry) [facility] [place] [address] [facility] [address] [facility] [address] [place] [address] [place] [address] (Wo rk) Social History Tobacco Use Types [...] Telephone Encounter - Adonis Grullon PA-C - 08/18/2015 9:43 AM NURSE TECH Oximetry results were obtained for the date of 08/02/2015. The patient was on a treatment of CPAP 9-15 cm. The study showed a valid recording time of 2:18 with a 4% desaturation index of 7/hr. The meanoxygen saturation was 89.1% and the lowest SpO2 was 83%. The patient spent 14.9 minutes below 89% SpO2. The oximetry report shows that it started at 2:29 PM, which is not when he wore it. These resultssuggest mild residual apnea and hypoxemia. The CPAP download from that night shows about 5.5 hours of use with no significant leak and a residual AHI <2/hr. We have 2 oximetry results (of questionable reliability) and a home study that all have some indication of hypoxemia. I recommend that he keep his appointment for the in lab titration PSG to see if he would be better treated on BiPAP or CPAP with supplemental O2. If he again demonstrates hypoxemia, I will refer him to pulmonary medicine. I will have a follow up arranged after his study. Adonis Grullon PA-C E TECH documented in this encounter Plan of Treatment Not on filedocumented as of this encounter Visit Diagnoses Not on filedocumented in this encounter Care Teams Ordained Minister Relationship Specialty Start Date End Date Juan José Michelle MD PCP - General Internal Medicine 05/08/15 01/09/21 documented as of this encounter
--- OUTSIDE RECORDS SUMMARY | 2022-06-20 14:13 | XMS_ITS | Encounter Summary ---
:1945 Author Organization [place] Address [address] [facility] [place] [address] Care Team Providers Name Role Phone Juan José Michelle MD Primary Care Provider Reason for Visit Reason Comments Sleep Problem Encounter Details Date Type Department Care Team Description 07/18/2015 Care Coordination [facility] Preet Grullon tt Sleep Problem Centers [place] Herbert PA-C [address] [place] [address] [place] [address] [phone] Social History Tobacco Use Types Packs/Day Years [...] encounter Progress Notes Adonis Grullon PA-C - 07/18/2015 9:54 AM CST Oximetry results were obtained for the date of 07/13/2015. The patient was on a treatment of CPAP 9-15 cm. The study showed a valid recording time of 7:55 with a 4% desaturation index of 20/hr. The mean oxygen saturation was 91.1% and the lowest SpO2 was 62%. The patient spent 72.1 minutes below 89% SpO2. The oximetry shows significant desaturations occurring between 10 PM and just after midnight. After that, there were few desaturation events, but he still had periods with low oxygen baseline, especially in the last hour of the study. The CPAP download from that night shows CPAP usage correlating well with the timing of the oximetry study. Both reports show a gap in recording between 2:30- 4:00 AM. The CPAP download shows an AHI of 1.1/hr with a 95th% leak of 14.4 lpm (which is normal). The CPAP download does not reflect the severity of apnea demonstrated by the oximetry. I spoke with the patient. He would like to repeat the oximetry. He felt the probe was tight on his finger. He switched fingers at one point in the night. I recommended that we get him on the schedule for a full night CPAP/BiPAP titration study as they book out a long time and I don't want him paying for CPAP in full if he would do better with BiPAP. If the repeat oximetry actually looks normal, we can cancel the PSG. Orders were placed for the oximetry and PSG. Adonis Grullon PA-C CREW SUPERVISOR Maddy Brewer - 07/18/2015 8:09 AM CST Scan of overnight oximetry on current cpap settings results, 07/13/2015. Route to WILBERT Antonio, for his review. CREW SUPERVISOR documented in this encounter Miscellaneous Notes Addendum Note - Adonis Grullon PA-C - 07/18/2015 10:19 AM WOOD CREW SUPERVISOR Addended by: ADONIS GRULLON on: 07/18/2015 10:19 AM Modules accepted: Orders, SmartSet CREW SUPERVISOR documented in this encounter Plan of Treatment Not on filedocumented as of this encounter Procedures Procedure Name Priority Date/Time Associated Diagnosis Comme nts OXIMETRY - HIM SCAN Routine 07/18/2015 documented in this encounter Results Comprehensive Sleep Study (08/31/2015) Narrative This result has an attachment that is no t available. Adonis Grullon PA-C PROCEDURES Overnight oximetry study (08/08/2015) Narrative This result has an attachment that is no t available. Adonis Grullon PA-C IP RESPIRATORY CARE Oximetry - HIM Scan (07/18/2015) Narrative This result has an attachment that is no t available. Adonis Grullon PA-C PFT ORDERABLES documented in this encounter Visit Diagnoses Diagnosis DIANNE (obstructive sleep apnea) - Primary Obstructive sleep apnea (adult) (pediatr ic) Nocturnal hypoxemia Hypoxemia documented in this encounter Care Teams Seo Associate Relationship Specialty Start Date End Date Juan José Michelle MD PCP - General Internal Medicine 05/08/15 01/09/21 documented as of this encounter
--- OUTSIDE RECORDS SUMMARY | 2022-06-20 14:13 | XMS_ITS | Encounter Summary ---
:1945 Author Organization [place] Address [address] [place] [address] Care Team Providers Name Role Phone Juan José Michelle MD Primary Care Provider Reason for Visit Reason Comments Sleep Problem CPAP PRESSURE CHANGE Encounter Details Date Type Department Care Team Description [facility]/02[facility] [place] [facility] [address] [address] Social History Tobacco Use Types Packs/Day [...] documented as of this encounter Progress Notes Kayla Medrano - 10/02/2015 11:29 AM CST Changed patient's pressures remotely through [employer] Airview to auto 11-15 cmH2O BOYS GOLF COACH documented in this encounter Plan of Treatment Not on filedocumented as of this encounter Visit Diagnoses Not on filedocumented in this encounter Care Teams Hydroelectric Component Machinist Relationship Specialty Start Date End Date Juan José Michelle MD PCP - General Internal Medicine 05/08/15 01/09/21 documented as of this encounter
--- OUTSIDE RECORDS SUMMARY | 2022-06-20 14:13 | XMS_ITS | Encounter Summary ---
:1945 Author Organization [place] Address [address] [place] [address] Care Team Providers Name Role Phone Juan José Michelle MD Primary Care Provider Reason for Visit Reason Comments Sleep Problem Encounter Details Date Type Department Care Team Description 08/08/2015 Care Coordination [facility] Preet Grullon Sleep Problem Centers J Luis Herbert PA-C [address] [place] [address] [place] [address] [phone] Social History Tobacco Use Types Packs/Day Years [...] documented as of this encounter Progress Notes Maddy Brewer - 08/08/2015 5:26 PM CST Scan of overnight oximetry on pap settings results 08/02/2015. Route to WILBERT Antonio, for his review. ESS EQUIPMENT OPERATOR documented in this encounter Miscellaneous Notes Addendum Note - Maddy Brewer - 08/08/2015 5:33 PM PROCESS EQUIPMENT OPERATOR Addended by: MADDY BREWER on: 08/08/2015 05:33 PM Modules accepted: Orders ESS EQUIPMENT OPERATOR documented in this encounter Plan of Treatment Not on filedocumented as of this encounter Procedures Procedure Name Priority Date/Time Associated Diagnosis Comme nts OVERNIGHT OXIMETRY STUDY Routine 08/08/2015 [place] hypoxemia DIANNE (obstructive sleep apnea ) documented in this encounter Results Overnight oximetry study (08/08/2015) Narrative This result has an attachment that is no t available. Adonis Grullon PA-C IP RESPIRATORY CARE documented in this encounter Visit Diagnoses Diagnosis Nocturnal hypoxemia Hypoxemia DIANNE (obstructive sleep apnea) Obstructive sleep apnea (adult) (pediatr ic) documented in this encounter Care Teams Customer Quality Specialist Relationship Specialty Start Date End Date Juan José Michelle MD PCP - General Internal Medicine 05/08/15 01/09/21 documented as of this encounter
--- OUTSIDE RECORDS SUMMARY | 2022-06-20 14:13 | XMS_ITS | Encounter Summary ---
:1945 Author Organization [place] Address [address] [facility] [place] [address] Care Team Providers Name Role Phone Juan José Michelle MD Primary Care Provider Reason for Visit Reason Comments Sleep Problem Encounter Details Date Type Department Care Team Description 07/04/2015 Care Coordination [facility] Preet Grullon Sleep Problem Centers J Luis Herbert PA-C [address] [facility] [address] [place] [address] [address] [place] [address] [place] [address] [phone] Social History Tobacco Use Types Packs/Day Years [...] this encounter Progress Notes Maddy Brewer - 07/04/2015 3:11 PM CDT Emailed order for ALLEGRA on current pap settings to Kayla @ [facility] documented in this encounter Plan of Treatment Not on filedocumented as of this encounter Visit Diagnoses Not on filedocumented in this encounter Care Teams Spar Machine Operator Relationship Specialty Start Date End Date Juan José Michelle MD PCP - General Internal Medicine 05/08/15 01/09/21 documented as of this encounter
--- OUTSIDE RECORDS SUMMARY | 2022-06-20 14:13 | XMS_ITS | Encounter Summary ---
:1945 Author Organization [place] Address [address] [place] [address] Care Team Providers Name Role Phone Juan José Michelle MD Primary Care Provider Reason for Visit Reason Onset Date Comments Other 07/12/2015 Encounter Details Date Type Department Care Team Description 07/12/2015 Telephone [facility] Stefan Garza i RT Other [place] [address] [facility] [address] [place] [address] Social History Tobacco Use Types [...] this encounter Miscellaneous Notes Telephone Encounter - Charity Garza RT - 07/13/2015 2:40 PM CDT Pt stopped in at [facility] and picked up ALLEGRA device. Instructed Pt to perform study on CPAP. Pt states understanding. Telephone Encounter - Charity Garza RT - 07/12/2015 4:30 PM CDT Pt was scheduled to poultry picker ALLEGRA device for study on 07/06/15 and was a no-show. I called and spoke with on the phone today with Pt in the background on speaker. Pt agreed to stop into [facility] to poultry picker device by the end of day beofre close and was a no-show again. documented in this encounter Plan of Treatment Not on filedocumented as of this encounter Visit Diagnoses Not on filedocumented in this encounter Care Teams User Experience Architect Relationship Specialty Start Date End Date Juan José Michelle MD PCP - General Internal Medicine 05/08/15 01/09/21 documented as of this encounter
--- OUTSIDE RECORDS SUMMARY | 2022-06-20 14:13 | XMS_ITS | Encounter Summary ---
:1945 Author Organization [facility] Address [address] [facility] 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; IRENE Dietz [address] IRENE DIETZ Special screening for malign ant neoplasms, colon [phone] Social History Tobacco Use Types Packs/Day [...] Sign Reading Time Taken Comments Blood Pressure 126/79 05/12/2017 9:28 AM CDT Pulse 64 05/12/2017 9:28 AM CDT Temperature 36.6 ??C (97.8 ??F) 05/12/2017 9:28 AM CDT Respiratory Rate - - Oxygen Saturation 97% 05/12/2017 9:28 AM CDT Inhaled Oxygen Concentration - - Weight 105.7 kg (233 lb) 05/12/2017 9:28 AM CDT Height 170.2 cm (5' 7) 05/12/2017 9:28 AM CDT Body Mass Index 36.49 05/12/2017 9:28 AM CDT documented in this encounter Patient Instructions Patient InstructionsEvie Sotelo CMA - 05/09/2017 2:11 PM CDT Before Your Surgery ??? Call your [...] bed. documented in this encounter Progress Notes Juan José Michelle MD - 05/09/2017 2:11 PM CDT [address] [address] Dept: [phone] PRE-OP EVALUATION: Today's date: 05/12/2017 Ruddy Calhoun (: 1945) presents for pre-operative evaluation assessment as requested by Dr. Iraheta. He requires evaluation and anesthesia risk assessment prior to undergoing surgery/procedure for treatment of right cataract . Proposed procedure: Date of Surgery/ Procedure: 05/20/17 Time of Surgery/ Procedure: [address] [place] [address]/Surgical Facility: [facility] [phone] Primary Physician: Juan José Michelle Type of Anesthesia Anticipated: to be determined Patient has a Health Care Directive or Living Will: NO 1. NO - Do you have a history of heart attack, stroke, stent, bypass or surgery on an artery in the head, neck, heart or legs? 2. NO - Do you ever have any pain or discomfort in your chest? 3. NO - Do you have a history of Heart Failure? 4. NO - Are you troubled by shortness of breath when: walking on the level, up a slight hill or at night? 5. NO - Do you currently have a cold, bronchitis or other respiratory infection? 6. NO - Do you have a cough, shortness of breath or wheezing? 7. NO - Do you sometimes get pains in the calves of your legs when you walk? 8. NO - Do you or anyone in your family have previous history of blood clots? 9. NO - Do you or does [...] relatives ever had problems with anesthesia? 14. NO - Do you have sleep apnea, excessive snoring or daytime drowsiness? 15. NO - Do you have any prosthetic heart valves? 16. NO - Do you have prosthetic joints? 17. NO - Is there any chance that you may be ? HPI: Brief HPI related to upcoming procedure: Patient with history of hypertension presents to the clinic for evaluation and anesthesia risk assessment prior to undergoing right cataract surgery. He states that cataract in his right eye has been worsening over recently which prompted the surgery. Over the last 2 years patient had been having increased difficulty with his feet/flat feet. He states that recently over the past couple months he has found some corrective insoles and socks that are improving his symptoms. He has increased his walking regiment and is now walking 3x a week. He is alsowatching his diet more closely. His appetite has decreased. With his changes patient is maintaining his weight. He denies any headaches, recent colds, allergy exacerbations, neck or back pain, dyspnea,angina, palpitations, heartburn diarrhea, constipation, hematochezia, and urinary difficulties. He has nocturia 1x. Patient states that when he goes walking he gets a pain in his right hip. He rests toresolve the pain. Medications: Beet powder--->energy Green extract MEDICAL HISTORY: Patient Active Problem List Diagnosis Date Noted ??? Gout 08/18/2016 Priority: Medium ??? Seborrheic keratosis, inflamed 08/18/2016 Priority: Medium ??? DIANNE (obstructive sleep apnea) 05/17/2015 Priority: Medium ??? Sleep related hypoventilation/hypoxemia in other disease 05/17/2015 Priority: Medium Problem list name updated by automated process. Provider to review ??? HTN (hypertension) 05/08/2015 Priority: Medium Past Medical History: Diagnosis Date ??? HTN (hypertension) Past Surgical History: Procedure Laterality Date ??? COLON SURGERY Current Outpatient Prescriptions Medication Sig Dispense Refill ??? NONFORMULARY ??? NONFORMULARY ??? NONFORMULARY ??? NONFORMULARY ??? lisinopril-hydrochlorothiazide (PRINZIDE/ZESTORETIC) 20-25 MG per tablet TAKE 1 TABLET BY MOUTH EVERY DAY 90 tablet 2 ??? indomethacin (INDOCIN) 25 MG capsule Take 1 capsule (25 mg) by mouth 2 times daily (with meals) 42 capsule 0 ??? order for DME Equipment being ordered: CPAP Patient Ruddy Calhoun was set up at [facility] on May 25, 2015. Patient received a [employer] Airsense 10 Auto. Pressures were set at Auto 5 - 15 cm H2O. Patient???s ramp is 0 cm H2O for Off and FLEX/EPR is A Flex 2. Patient received a [employer] Mask name: Simplus Full Face mask Size Medium, heated tubing and heated humidifier. Patient is enrolled in the [facility] Program and does need to meet compliance. Patient has a follow up on TBD with LOIS Antonio. AKBAR CABRERA OTC products: None, except as noted above No Known Allergies Latex Allergy: NO Social History Substance Use Topics ??? Smoking status: Former Smoker Types: Cigars ??? Smokeless tobacco: Never Used ??? Alcohol use No Comment: not for about 35 years (as of 2014) History Drug Use No REVIEW OF SYSTEMS: C: NEGATIVE for fever, chills, change in [...] NEGATIVE for frequency, dysuria, or hematuria M: NEGATIVE for significant arthralgias or myalgia N: NEGATIVE for weakness, dizziness or paresthesias E: NEGATIVE for temperature intolerance, skin/hair changes H: NEGATIVE for bleeding problems P: NEGATIVE for changes in mood or affect This document serves as a record of the services and decisions personally performed and made by GaryL. Miguel Angel MD. It was created on his/her behalf by Matthew Dave, a trained medical staff physician. The creation of this document is based the provider's statements to the medical staff physician. Scribclement Dave 9:47 AM, May 12, 2017 EXAM: BP 126/79 Pulse 64 Temp 97.8 ??F (36.6 ??C) (Oral) Ht 1.702 m (5' 7) Wt 105.7 kg (233 lb) SpO2 97% BMI 36.49 kg/m2 GENERAL APPEARANCE: healthy, alert and no distress [...] and no murmur, click or rub ABDOMEN: Protuberant, soft, nontender, no HSM or masses and bowel sounds normal MS: extremities normal- no gross deformities noted, no evidence of inflammation in joints, FROM in all extremities, he has varicosities bilaterally, he has 1-2+ edema on the right and 2+ on the left, he has significantly flat feet bilaterally, he has an abrasion on his right medial instep probably from rubbing, his pulses were all normal SKIN: no suspicious lesions or rashes, he has inummerable seborrheic keratoses PSYCH: mentation appears normal. and affect normal/bright DIAGNOSTICS: Labs Drawn and in Process: Unresulted Labs Ordered in the Past 30 Days of this Admission Date and Time Order Name Status Description 05/12/2017 1018 CBC WITH PLATELETS In process 05/12/2017 1018 BASIC METABOLIC PANEL In process Recent Labs Lab Test 11/05/16 0959 06/27/16 1817 06/10/16 1615 HGB 14.0 -- 14.6 PLT 221 -- 230 NA 141 139 139 POTASSIUM 3.8 3.7 3.5 CR 1.09 1.17 1.23 IMPRESSION: The proposed surgical procedure is considered LOW risk. REVISED CARDIAC RISK INDEX The patient has the following serious cardiovascular risks for perioperative complications such as (NJ, PE, VFib and 3?? AV Block): No serious cardiac risks INTERPRETATION: 0 risks: Class I (very low risk - 0.4% complication rate) The patient has the following additional risks for perioperative complications: No identified additional risks ICD-10-CM 1. Preop general physical exam Z01.818 Basic metabolic panel CBC with platelets 2. Essential hypertension I10 3. DIANNE (obstructive sleep apnea) G47.33 4. Idiopathic chronic gout of multiple sites without tophus [id number].[id number] 5. Special screening for malignant neoplasms, colon Z12.11 Fecal colorectal cancer screen (FIT) -Call patient with lab reports. -Recommended reducing his Lisinopril Htz to a 1/2 tablet before surgery. RECOMMENDATIONS: --Patient is to take all scheduled medications on the day of surgery EXCEPT for modifications listedbelow. APPROVAL GIVEN to proceed with proposed procedure, without further diagnostic evaluation Signed Electronically by: Juan José Michelle MD The information in this document, created by the medical staff physician for me, accurately reflects the services I personally performed and the decisions made by me. I have reviewed and approved this document for accuracy prior to leaving the patient care area. Juan José Michelle MD 10:21 AM, 05/12/17 Copy of this evaluation report is provided to requesting physician. Leonard Preop Guidelines documented in this encounter Nursing Notes Evie Sotelo CMA - 05/12/2017 9:30 AM CDT Chief Complaint Patient presents with ??? Pre-Op Exam Initial BP 126/79 Pulse 64 Temp 97.8 ??F (36.6 ??C) (Oral) Ht 5' 7 (1.702 m) Wt 233 lb (105.7 kg) SpO2 97% BMI 36.49 kg/m2 Estimated body mass index is 36.49 kg/(m^2) as calculated from the following: Height as of this encounter: 5' 7 (1.702 m). Weight as of this encounter: 233 lb (105.7 kg). Medication Reconciliation: complete Nishi Hawthorne CMA documented in this encounter Plan of Treatment Not on filedocumented as of this encounter Procedures Procedure Name Priority Date/Time Associated Diagnosis Comme nts BASIC METABOLIC Routine 05/12/2017 10:15 AM Preop general Resu lts for this PANEL CDT physical exam procedure are in the results section. CBC WITH PLATELETS Routine 05/12/2017 10:15 AM Preop general R esults for this CDT physical exam procedure are in the results section. documented in this encounter Results Fecal colorectal cancer screen (FIT) (05/15/2017 10:15 AM CDT) Analysis Performed At Patho logist Time Signature Occult Blood Negative NEG^Negati 05/15/2017 [facility] FIT ve 10:04 PM CDT [facility] Specimen Anatomical Collection Method Collection Time Receive d Time (Source) Location / / Volume Laterality Stool specimen 05/15/2017 10:15 7 5:54 (specimen) AM CDT PM CDT Juan José Michelle MD LAB - STOOLS ORDERABLES Performing Organization Address City/State/ZIP Code Phon e Number [facility] [address] [place] [address] [facility] CBC with platelets (05/12/2017 10:15 AM CDT) P athologist Signature WBC 8.7 4.0 - 11.0 05/12/2017 [place] 10e9/L 10:32 AM CDT [facility] RBC Count 4.84 4.4 - 5.9 05/12/2017 [place] 10e12/L 10:32 AM CDT [facility] Hemoglobin 14.5 13.3 - 05/12/2017 [facility] 17.7 g/dL 10:32 AM CDT [facility] [place] Hematocrit 44.0 40.0 - 05/12/2017 [place] 53.0 % 10:32 AM CDT [facility] MCV 91 78 - 100 05/12/2017 [place] fl 10:32 AM CDT [facility] [place] MCH 30.0 26.5 - 05/12/2017 [place] 33.0 pg 10:32 AM CDT [facility] MCHC 33.0 31.5 - 05/12/2017 [place] 36.5 g/dL 10:32 AM CDT [facility] [place] RDW 14.4 10.0 - 05/12/2017 [place] 15.0 % 10:32 AM CDT [facility] Platelet Count 215 150 - 450 05/12/2017 [place] 10e9/L 10:32 AM CDT [facility] Specimen Anatomical Collection Method Collection Time Receive d Time (Source) Location / / Volume Laterality Blood specimen 05/12/2017 10:15 7 (specimen) AM CDT 10:20 AM CDT Juan José Michelle MD LAB - BLOOD ORDERABLES Performing Organization Address City/State/ZIP Code Phon e Number [facility] [address] [place] [id number] (ABNORMAL) Basic metabolic panel (05/12/2017 10:15 AM CDT) P athologist Signature Sodium 142 133 - 144 05/12/2017 [facility] mmol/L 3:[address] [facility] Potassium 3.7 3.4 - 5.3 05/12/2017 [facility] mmol/L 3:00 PM [facility] Chloride 104 94 - 109 05/12/2017 [facility] mmol/L 3:00 PM [facility] Carbon Dioxide 32 20 - 32 05/12/2017 [place] [facility] mmol/L 3:00 PM [facility] Anion Gap 6 3 - 14 05/12/2017 [facility] mmol/L 3:00 PM [facility] Glucose 88 70 - 99 05/12/2017 [facility] mg/dL 3:00 PM [facility] Comment: Non Fasting Urea Nitrogen 18 7 - 30 mg/dL 05/12/2017 3:[address] [facility] Creatinine 1.22 0.66 - 1.25 mg/dL 05/12/2017 3:00 PM [facility] GFR Estimate 59 (L) >60 mL/min/1.7m2 05/12/2017 3:00 PM [facility] Comment: Non GFR Calc GFR Estimate If 71 >60 mL/min/1.7m2 05/12/2017 3:00 P M [facility] Black [facility] Comment: GFR Calc Calcium 8.8 8.5 - 10.1 mg/dL 05/12/2017 3:[address] [facility] Specimen Anatomical Collection Method Collection Time Receive d Time (Source) Location / / Volume Laterality Blood specimen 05/12/2017 10:15 7 (specimen) AM CDT 10:20 AM CDT Juan José Michelle MD LAB - BLOOD ORDERABLES Performing Organization Address City/State/ZIP Code Phon e Number 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
--- OUTSIDE RECORDS SUMMARY | 2022-06-20 14:13 | XMS_ITS | Encounter Summary ---
:1945 Author Organization [facility] Address [address] [place] [address] Care Team Providers Name Role Phone Juan José Michelle MD Primary Care Provider Reason for Visit Reason Comments RECHECK Follow up dianne Encounter Details Date Type Department Care Team Description 07/04/2015 Office Visit [facility] Adonis Grullon DIANNE (obs tructive sleep apnea) (Primary Dx); [facility] [place] Herbert PA-C Nocturnal hypoxemia; [address] [facility] [place] [address] [address] [place] [address] [place] [address] Social History Tobacco Use Types Packs/Day [...] Sign Reading Time Taken Comments Blood Pressure 122/71 07/04/2015 11:01 AM CDT L arm Pulse 92 07/04/2015 11:01 AM CDT Temperature - - Respiratory Rate - - Oxygen Saturation 96% 07/04/2015 11:01 AM CDT Inhaled Oxygen Concentration - - Weight 108.4 kg (239 lb) 07/04/2015 11:01 AM CDT Height 167.6 cm (5' 6) 07/04/2015 11:01 AM CDT Body Mass Index 38.58 07/04/2015 11:01 AM CDT documented in this encounter Patient Instructions Patient InstructionsAdonis Grullon PA-C - 07/04/2015 11:42 AM CDT General recommendations for sleep problems (Insomnia) Allow [...] bathroom, use a nightlight Online Programs ??? www.[employer]nd (pronounced shut eye). There is a fee for this program. Enter the code ???[facility]?? if you decide to enroll in this program. ??? www.[employer] (pronounced sleep ee oh). There is a fee for this program. Enter the code ???[facility]?? if you decide to enroll in this program. Suggested Resources Insomnia Treatment Books ??? Overcoming Insomnia by Rudolph Nascimento and Michelle Laguerre (2008) ??? No More Sleepless Nights by Ranjit Mejía and Lisa Lehman (1995) ??? Say Alison to Insomnia by Iggy Deluca (2009) ??? The Insomnia Workbook by Valarie Garcia [...] Workbook by Jason Pendleton and Shavonne Lord (2010) ??? The Complete Stress Management Workbook by Bhaskar Sloan, Sid Tristan and Armin Walton (1995) ??? Assert Yourself by Alecia Rodríguez and Asim Rodríguez (1976) Relaxation Resources for Computer Download These websites offer resources to help you relax. This list is for information only. [facility] is notresponsible for the quality of services or the actions of any person or organization. Progressive Muscle Relaxation (PMR): ??? http://www.[employer]Mitro/rrurvdghupi-lwdbku-riaeftxmce-exercise.html ??? http://studentsupport.[facility]/counseling/resources/self-help/relaxat yvo-hks-kexhra-management/ Deep Breathing Exercises: ??? http://www.[employer]Mitro/breathing-awareness.html Meditation: ??? www.miradio.fm ??? www.onb-wzyxtf-cuecbtkfix-site.Mitro You may have to pay for some of these resources. Guided Imagery: ??? http://www.[employer]Mitro/jjismx-sglyrae-qqsugik.html ??? http://[employer]/SEA/venzdzecyh-gqlvva-wicxtod/ Counseling / Behavioral Health [facility] Visit www.[place].org or call [phone] to find a clinic close to you. Or call [phone] for [facility]. documented in this encounter Progress Notes Adonis Grullon PA-C - 07/04/2015 11:04 AM CDT Sleep Study Follow-Up Visit: Date on this visit: 07/04/2015 Ruddy Calhoun comes in today for follow-up of his CPAP use for severe DIANNE and hypoxemia. He was initially seen at the [facility] for previous diagnosis of moderate DIANNE about 10 years ago. He did not tolerate CPAP, but thinks he could now with the new designs. His main symptom is loud snoring and observed apneas. AHI: 56.2/hr TRE: 47.2/hr Supine AHI: 49.7/hr Lateral AHI: 52.9/hr on left and 59/hr on right Average SpO2: 88% Lowest Desaturation: 64%. Time Spent Below 89%: 198.3 minutes He was initiated on auto CPAP 5-15 cm. He is doing well with his new CPAP. He is using a full face mask. He feels the mask fits well. He denies dry nose or mouth. It is better with the CPAP. He feels the pressures could be higher when he first puts it on. He has not thought about the pressures in the middle of the night, so they must be comfortable. His is happy because he is not snoring. His energy has improved. He is not dozing watching TV at night anymore. The compliance data shows that he has used the CPAP for 30/30 nights, 93% of nights for >4 hours.The 95th% pressure is 11.7 cm. The 95th% leak is 1.8 lpm. The average nightly usage is 5:46. The average AHI is 1.9/hr. He goes to bed around 10:30-11 PM. He wakes around 3-4 AM. Sometimes he uses the computer and then goes back to sleep after 90-120 minutes. He will sleep until 7 AM. He does not often get a chance to nap, but he likes to. He only sleeps about 15 minutes. He is not really bothered by the awakenings because he is retired and is happy with his energy in the day. Past medical/surgical history, family history, social history, medications and allergies were reviewed. Problem List: Patient Active Problem List Diagnosis Date Noted ??? DIANNE (obstructive sleep apnea) 05/17/2015 Priority: Medium ??? Sleep related hypoventilation/hypoxemia in other disease 05/17/2015 Priority: Medium Problem list name updated by automated process. Provider to review ??? HTN (hypertension) 05/08/2015 Priority: Medium Impression/Plan: (G47.33) DIANNE (obstructive sleep apnea) (primary encounter diagnosis), (G47.34) Nocturnal hypoxemia Comment: doing well with CPAP. Feels pressure could be higher. Plan: Overnight oximetry study Changed pressures to 9-15 cm. Overnight oximetry on CPAP to evaluate hypoxemia. I will call him with results of the oximetry. (G47.00) Insomnia Comment: He has prolonged middle of the night awakenings. He is not really bothered by them. He getsup and plays computer games. Plan: We discussed a few behavioral changes he could try if he would like to reduce the middle of the night awakenings. I suggested that he try picking an 8 hour window of time allowed in bed at night.Avoid naps and sleeping in. Avoid electronics in the middle of the night. Keep the lights dim. Only be out of bed for 30 minutes before trying to go back to sleep. He will follow up with me in about 1 year. Twenty-five minutes spent with patient, all of which were spent [id number] counseling, consulting,coordinating plan of care. Adonis Grullon PA-C CC: No ref. provider found documented in this encounter Plan of Treatment Not on filedocumented as of this encounter Visit Diagnoses Diagnosis DIANNE (obstructive sleep apnea) - Primary Obstructive sleep apnea (adult) (pediatr ic) Nocturnal hypoxemia Hypoxemia Insomnia Insomnia, unspecified documented in this encounter Care Teams Precision Grinder External Relationship Specialty Start Date End Date Juan José Michelle MD PCP - General Internal Medicine 05/08/15 01/09/21 documented as of this encounter
--- OUTSIDE RECORDS SUMMARY | 2022-06-20 14:13 | XMS_ITS | Encounter Summary ---
:1945 Author Organization [facility] Address [address] [place] [address] Care Team Providers Name Role Phone Juan José Michelle MD Primary Care Provider Reason for Visit Reason Comments Sleep Apnea Encounter Details Date Type Department Care Team Description 07/20/2015 Care Coordination [facility] Preet Grullon, [facility] PA-C [address] [facility] [address] [facility] [address] [place] [id number] [place] [address] (Wo rk) Social History Tobacco [...] this encounter Progress Notes Maddy Brewer - 07/20/2015 8:05 AM CST Emailed michael at [facility] to have repeat ALLEGRA on pap current settings. 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
--- OUTSIDE RECORDS SUMMARY | 2022-06-20 14:13 | XMS_ITS | Encounter Summary ---
:1945 Author Organization [facility] Address [address] [place] [address] Care Team Providers Name Role Phone Juan José Michelle MD Primary Care Provider Reason for Visit Reason Comments RECHECK Encounter Details Date Type Department Care Team Description 09/29/[address] 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 [address] [address] [address] [place] [address] [place] [id number] Social History Tobacco Use [...] Sign Reading Time Taken Comments Blood Pressure 133/79 09/29/2015 10:00 AM PET AMBASSADOR Pulse 89 09/29/2015 10:00 AM PET AMBASSADOR Temperature 36.4 ??C (97.5 ??F) 09/29/2015 10:00 AM PET AMBASSADOR Respiratory Rate - - Oxygen Saturation 95% 09/29/2015 10:00 AM PET AMBASSADOR Inhaled Oxygen Concentration - - Weight 111.1 kg (245 lb) 09/29/2015 10:00 AM PET AMBASSADOR Height - - Body Mass Index 39.54 07/04/2015 11:01 AM CDT documented in this encounter Progress Notes Adonis Grullon PA-C - 09/29/2015 10:45 AM CST Sleep Study Follow-Up Visit: Date on this visit: 09/29/2015 Ruddy Calhoun comes in today for follow-up of his titration sleep study done on 08/29/2015 at the [facility] for previous diagnosis of moderate DIANNE about 10 years ago. He did not tolerate CPAP, but thinks he could now with the new designs. His main symptom is loud snoring and observed apneas. Diagnostic home study showed: AHI: 56.2/hr TRE: 47.2/hr Supine AHI: 49.7/hr Lateral AHI: 52.9/hr on left and 59/hr on right Average SpO2: 88% Lowest Desaturation: 64%. Time Spent Below 89%: 198.3 minutes. Sleep latency 11 minutes without Ambien. REM achieved. REM latency 127.5 minutes. Sleep efficiency 71.4%. Total sleep time 260.5 minutes. Sleep architecture: Stage 1, 6% (5%), stage 2, 80.4% (45-55%), stage 3, 0% (15- 20%), stage REM, 13.6% (20-25%). Periodic Limb Movement Index 2/hour. His CO2 ranged from mid 40's to low 50's. CPAP titration: CPAP was titrated to 11 cm with near complete elimination of apneas, hypopneas and desaturations. His AHI was 4.7/hr on CPAP 11 cm. He did have a few hypopneas in REM lateral at that pressure. Supine REM was not noted at this pressure. These findings were reviewed with the patient. He does feel he is sleeping better. His machine is set at 11 cm and the pressure change has been helpful. He definitely feels better with CPAP. He is sleeping more on his back now. He does not notice much mask leak. If he does notice leak, it does not take much to fix it. He notices the leak if he moves his face on the pillow. He does not get much dry mouth and no dry nose. The compliance data shows that he has used the CPAP for 30/30 nights, 100% of nights for >4 hours. The pressure is 11 cm. The 95th% leak is 8.5 lpm. The average nightly usage is 6:43. The average AHI is 0.9/hr. He often has a prolonged awakening of an hour or so in the middle of the night. He thinks and prays and goes back to sleep. He says it does not bother him. He will be going to [facility] for 3 weeks, soon. 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 He did not have REM supine at that pressure. He is sleeping on his back a bit more at home. He was not bothered by the pressures when his machine was set to 5-15 cm before. His CPAP does not indicate that he has residual apnea if he is sleeping supine. Plan: Comprehensive DME Orders were placed to change settings to 11-15 cm to cover him a little better when supine. He will follow up with me in about 1 year(s). Twenty-five minutes spent with patient, all of which were spent [id number] counseling, consulting,coordinating plan of care. Adonis Grullon PA-C CC: No ref. 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
--- OUTSIDE RECORDS SUMMARY | 2022-06-20 14:14 | XMS_ITS | Encounter Summary ---
:1945 Author Organization [facility] Address [address] [place] [address] Care Team Providers Name Role Phone Juan José Michelle MD Primary Care Provider Encounter Details Date Type Department Care Team Description 05/24/2015 Telephone [facility] Bibiana Wilkinson [address] [facility] [address] [place] [address] Social History Tobacco Use Types [...] this encounter Miscellaneous Notes Telephone Encounter - Bibiana Wilkinson - 05/24/2015 3:34 PM CDT Called pt regarding setup of cpap. Pt requested to be setup at the [facility] location since itis near his work. Sent email with pt contact information to the [place] location to arrange an appointment. documented in this encounter Plan of Treatment Not on filedocumented as of this encounter Visit Diagnoses Not on filedocumented in this encounter Care Teams Services Host Relationship Specialty Start Date End Date Juan José Michelle MD PCP - General Internal Medicine 05/08/15 01/09/21 documented as of this encounter
--- OUTSIDE RECORDS SUMMARY | 2022-06-20 14:14 | XMS_ITS | Encounter Summary ---
:1945 Author Organization [place] Address [address] [facility] [place] [address] Care Team Providers Name Role Phone Juan José Michelle MD Primary Care Provider Reason for Visit Reason Onset Date Comments Results 05/17/2015 home sleep study res ults Encounter Details Date Type Department Care Team Description 05/17/2015 Telephone [facility] Adonis Grullon Results (home sleep Sleep Centers J Luis Herbert PA-C study results) [address] [facility] [address] [address] [address] [place] [address] [place] [address] [phone] Social History Tobacco Use Types Packs/Day Years [...] documented as of this encounter Miscellaneous Notes Addendum Note - Adonis Grullon PA-C - 05/17/2015 10:26 AM CDT Addended by: ADONIS GRULLON on: 05/17/2015 10:26 AM Modules accepted: Orders, SmartSet Telephone Encounter - Adonis Grullon PA-C - 05/17/2015 10:24 AM CDT Brayan called back. I reviewed the results. I am ordering CPAP. He will follow up in a month. I will order oximetry at that time. Adonis Grullon PA-C Telephone Encounter - Adonis Grullon PA-C - 05/17/2015 10:16 AM CDT Home Sleep Study Test Results Ruddy Calhoun underwent a home sleep study done on 05/11/2015 for previous diagnosis of moderate DIANNE about 10 years ago. He did not tolerate CPAP, but thinks he could now with the new designs. His main symptom is loud snoring and observed apneas. Bed Time Starts: 10:48 PM. Bed Time Ends: 7:59 AM. Total estimated sleep time 373.5 minutes. His sleep efficiency was estimated at 52%. AHI: 56.2/hr TRE: 47.2/hr Supine AHI: 49.7/hr Lateral AHI: 52.9/hr on left and 59/hr on right Average SpO2: 88% Lowest Desaturation: 64% Time Spent Below 89%: 198.3 minutes Total Obstructive Apneas 218 Total Central/Mixed Apneas 11 Hypopneas 121 Description of Snoring: moderate to loud Average Pulse: 70 bpm Highest Pulse: 101 bpm Lowest Pulse: 38 bpm Percent of time spent supine: 7.9%. 24.3% on left, 39.3% on right Preliminary Interpretation of Results: Severe DIANNE and sleep associated hypoxemia. I called and left a message for him to call me back. documented in this encounter Plan of Treatment Not on filedocumented as of this encounter Visit Diagnoses Diagnosis DIANNE (obstructive sleep apnea) - Primary Obstructive sleep apnea (adult) (pediatr ic) Sleep related hypoventilation/hypoxemia in conditions classifiable elsewhere documented in this encounter Care Teams Lead Shop Operator Relationship Specialty Start Date End Date Juan José Michelle MD PCP - General Internal Medicine 05/08/15 01/09/21 documented as of this encounter
--- OUTSIDE RECORDS SUMMARY | 2022-06-20 14:14 | XMS_ITS | Encounter Summary ---
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 auscultation - no rales, rhonchi or wheezes CV: regular rates and rhythm, normal S1 S2, no S3 or S4, no murmur, click or rub and no irregular beats LYMPHATICS: normal ant/post cervical and supraclavicular nodes MS: extremities normal- no gross deformities noted and pitting 2+ lower extremity edema bilaterally NEURO: Normal strength and tone, mentation intact, speech normal and cranial nerves 2-12 intact Mallampati Class: IV. Tonsillar Stage: 1 hidden by pillars. Impression/Plan: (327.23) DIANNE (obstructive sleep apnea) (primary encounter diagnosis), (401.9) HTN (hypertension) Comment: STOP BANG 8, previous diagnosis of DIANNE over 10 years ago. The apnea was apparently moderately severe although a copy of the study is unavailable. He has gained 15-20 pounds. He has loud snoring, observed apnea, ESS 06/08, but has history of dozing while driving and in hindu. He has HTN, BMI 37, age 69, neck 43 cm and is male. Plan: HST-HOME SLEEP TEST/TYPE 3 EDDIE Home sleep study (782.3) Edema of both legs Comment: 2+ Plan: follow up with primary Literature provided regarding sleep apnea. I would like him initiated on CPAP as soon as possible after his study. He will follow up with me inapproximately one month after initiating CPAP to review the results and CPAP usage. Polysomnography reviewed. Obstructive sleep apnea reviewed. Complications of untreated sleep apnea were reviewed. Adonis Grullon PA-C CC: No ref. provider found documented in this encounter Plan of Treatment Not on filedocumented as of this encounter Visit Diagnoses Diagnosis DIANNE (obstructive sleep apnea) - Primary Obstructive sleep apnea (adult) (pediatr ic) HTN (hypertension) Unspecified essential hypertension Edema of both legs Edema documented in this encounter Care Teams Dietary Aide Teacher Relationship Specialty Start Date End Date Juan José Michelle MD PCP - General Internal Medicine 05/08/15 01/09/21 documented as of this encounter
--- OUTSIDE RECORDS SUMMARY | 2022-06-20 14:14 | XMS_ITS | Encounter Summary ---
:1945 Author Organization [place] Address [address] [place] [address] Care Team Providers Name Role Phone Juan José Michelle MD Primary Care Provider Reason for Visit Reason Comments Sleep Problem Encounter Details Date Type Department Care Team Description 06/27/2015 Documentation Only [facility] Sleep Center Sleep Problem [address], [address] [place] [phone] Social History Tobacco Use Types Packs/Day Years [...] documented as of this encounter Progress Notes Tamra Deluna - 06/27/2015 2:14 PM CDT 30 DAY [facility] VISIT Patient contacted for 30 day STM visit Subjective measures: Score 0. Patient doing well and feeling benefit from therapy. No issues with pressure, leak or discomfort from mask. Current settings: 5-15 cm H2O <= 90% of Time pressure: 11.8 cm H20 [Respironics] Objective measure: 14 day rolling measure 100 % Days> 4 hours [benchmark 70% 1.97 L/min Average leak [benchmark<24 l/min ResMed] 2.08 AHI [benchmark<5] Assessment: Pt doing well objectively and subjectively Action plan: Patient reminded of follow up visit with provider. Pt to have f/u 6 month STM visit. documented in this encounter Plan of Treatment Not on filedocumented as of this encounter Visit Diagnoses Not on filedocumented in this encounter Care Teams Simulation Software Engineer Relationship Specialty Start Date End Date Juan José Michelle MD PCP - General Internal Medicine 05/08/15 01/09/21 documented as of this encounter
--- OUTSIDE RECORDS SUMMARY | 2022-06-20 14:14 | XMS_ITS | Encounter Summary ---
:1945 Author Organization [place] Address [address] [place] [address] Care Team Providers Name Role Phone Juan José Michelle MD Primary Care Provider Reason for Visit Reason Comments Sleep Problem Encounter Details Date Type Department Care Team Description 05/31/2015 Documentation Only [facility] Sleep Problem [facility] Care [address] [place] [address], [address] [place] [phone] Social History Tobacco Use Types Packs/Day [...] documented as of this encounter Progress Notes Fausto Hebert - 05/31/2015 9:16 AM CDT 3 DAY STM VISIT Patient contacted for 3 day STM visit: Left message for patient to return call. Current settings: 5-15 cm H2O Action plan: Pt to have f/u 14 day STM visit. documented in this encounter Plan of Treatment Not on filedocumented as of this encounter Visit Diagnoses Not on filedocumented in this encounter Care Teams Livestock Nutritionist Relationship Specialty Start Date End Date Juan José Michelle MD PCP - General Internal Medicine 05/08/15 01/09/21 documented as of this encounter
--- OUTSIDE RECORDS SUMMARY | 2022-06-20 14:14 | XMS_ITS | Encounter Summary ---
:1945 Author Organization [place] Address [address] [place] [address] Care Team Providers Name Role Phone Juan José Michelle MD Primary Care Provider Reason for Visit Reason Comments Sleep Problem [facility] entry Encounter Details Date Type Department Care Team Description 05/25/2015 Documentation Only [facility] Slee p Problem ([facility] Sleep Center Virtual entry) Care [address] [place] [address], [address] [place] [address] Social History Tobacco Use Types Packs/Day Years [...] this encounter Progress Notes Tamra Deluna - 05/30/2015 2:32 PM CDT Ruddy Calhoun was set up with PAP equipment by [facility] and is enrolled in [facility]. See previous documentation by [facility] for equipment and supply details. documented in this encounter Plan of Treatment Not on filedocumented as of this encounter Visit Diagnoses Not on filedocumented in this encounter Care Teams Battery Repairer Relationship Specialty Start Date End Date Juan José Michelle MD PCP - General Internal Medicine 05/08/15 01/09/21 documented as of this encounter
--- OUTSIDE RECORDS SUMMARY | 2022-06-20 14:14 | XMS_ITS | Encounter Summary ---
:1945 Author Organization [place] Address [address] [place] [address] Care Team Providers Name Role Phone Juan José Michelle MD Primary Care Provider Reason for Visit Reason Comments Sleep Problem Encounter Details Date Type Department Care Team Description 06/09/2015 Documentation Only [facility] Sleep Problem [facility] Care [address] [place] [address], [address] [place] [phone] Social History Tobacco Use Types Packs/Day [...] this encounter Progress Notes Tamra Deluna - 06/09/2015 10:07 AM CDT Patient contacted for 14 day [facility] visit Message left for patient to return call. Current settings: 5-15 cm H2O 95th % pressure: 11.8 cm H20 [ResMed] Objective measure: 14 day rolling measure 100 % Days> 4 hours [benchmark 70%] 1.6 L/min Average leak [benchmark<24 l/min ResMed] 2.32 AHI [benchmark<5] Assessment: pt meeting objective benchmarks. Action plan: Pt to have f/u 30 day STM visit. documented in this encounter Plan of Treatment Not on filedocumented as of this encounter Visit Diagnoses Not on filedocumented in this encounter Care Teams Oiling Machine Operator Relationship Specialty Start Date End Date Juan José Michelle MD PCP - General Internal Medicine 05/08/15 01/09/21 documented as of this encounter
--- OUTSIDE RECORDS SUMMARY | 2022-06-20 14:14 | XMS_ITS | Encounter Summary ---
:1945 Author Organization [place] Address [address] [place] [address] Care Team Providers Name Role Phone Juan José Michelle MD Primary Care Provider Reason for Referral Specialty Diagnoses / Procedures Referred By Contact Refer red To Contact [facility] [address] [facility] [place] [phone] Referral ID Status Reason Start Date Expiration Date Visits Requ ested Visits Authorized Reason for Visit Reason Comments Sleep Problem Encounter Details Date Type Department Care Team Description 05/25/2015 Documentation Only [facility] Sleep Charity Garza, RT Sleep Problem Centers [address] [place] [address] Social History Tobacco Use Types Packs/Day [...] documented as of this encounter Progress Notes Charity Garza, RT - 05/26/2015 8:18 AM CDT Equipment being ordered: CPAP Patient Ruddy Calhoun was set up at [facility] on May 25, 2015. Patient received a [...] follow up on TBD with LOIS Antonio. CHARITY GARZA documented in this encounter Plan of Treatment Scheduled Referrals Name Type Priority Associated Diagnoses Order S chedule SLEEP MACHINE INFORMATION Referral Routine Or dered: 05/26/2015 documented as of this encounter Visit Diagnoses Not on filedocumented in this encounter Care Teams Cementing Machine Operator Relationship Specialty Start Date End Date Juan José Michelle MD PCP - General Internal Medicine 05/08/15 01/09/21 documented as of this encounter
--- OUTSIDE RECORDS SUMMARY | 2022-06-20 14:14 | XMS_ITS | Encounter Summary ---
:1945 Author Organization [place] Address [address] [place] [address] Care Team Providers Name Role Phone Juan José Michelle MD Primary Care Provider Reason for Visit Reason Comments Sleep Problem (Routine) - Closed Specialty Diagnoses / Procedures Referred By Contact Refer red To Contact Sleep Medicine Diagnoses bedtime 10:45P Sleep Center Procedures HST SERVICES PROGRAM MANAGER [address] [facility] [address] [place] [address] Phone: Referral ID Status Reason Start Date Expiration Date Visits Requ ested Visits Authorized [id number] Closed 05/08/2015 05/07/2016 1 1 Encounter Details Date Type Department Care Team Description 05/11/2015 Therapy Visit [facility] Sleep Adonis Grullon, [facility] [address] [facility] [address] [facility] [address] [place] [address] [place] [phone] (Wo rk) Social History Tobacco Use Types [...] documented as of this encounter Progress Notes Joselo Hayward MD - 05/25/2015 4:31 PM CDT HOME SLEEP STUDY INTERPRETATION INDICATIONS: Mr. Ruddy Calhoun is a 63-year-old male with a BMI of 37.8 and an [place] Sleepiness Scale score of 9/24 who has a previous diagnosis of sleep apnea with CPAP intolerance. A home sleep study is performed for a reevaluation. RECORDING SUMMARY: The study started at 10:48 p.m. and ended at 7:59 a.m. Probable sleep time included 374 minutes. The patient only spent 7.9% of this recording in the supine position. The oximeter, nasal cannula and respiratory belts all had good signal quality in the study. RESPIRATION SUMMARY: Severe obstructive sleep apnea and sleep-related hypoxemia. During the entire recording, there were 218 obstructive apneas, 5 mixed apneas, 6 central apneas [id number] hypopneas, for a combined apnea-hypopnea index of 56.2 events per hour. Snoring was reported as moderate to loud in volume. The baseline oxygen saturation was low at 88.4% and the minimum recording was 64%. The oxygen desaturation index was 47.2 per hour. There was a total of 198.3 minutes with a saturation at or below 88%, indicating sleep-related hypoxemia. ASSESSMENT: This home sleep study shows severe obstructive sleep apnea and sleep-related hypoxemia. RECOMMENDATIONS: CPAP therapy is the treatment of choice in this setting and can be started in the auto titration settings. DIAGNOSES CODES: 1. Obstructive sleep apnea 327.23. 2. Sleep-related hypoxemia 327.26. JOSELO HAYWARD MD MT: thao Name: RUDDY CALHOUN MRN: [id number] Account: [id number] : 1945 Visit Date: 05/11/2015 Document: [id number] Maddy Brewer - 05/11/2015 3:06 PM CDT Ruddy given instruction in use of HST. HST programmed to start recording at 10:45P tonight. He will return on 05/12/15. Jorge alba is his part B insurance, insurance verified by financial securing, out pt benefits are 50.00 copay for any service. He can be setup by [facility] for pap if needed. documented in this encounter Plan of Treatment Not on filedocumented as of this encounter Procedures Procedure Name Priority Date/Time Associated Diagnosis Comme nts SLEEP STUDY - HIM SCAN Routine 05/26/2015 SLEEP STUDY - HIM SCAN Routine 05/15/2015 documented in this encounter Results Sleep Study - HIM Scan (05/26/2015) Narrative This result has an attachment that is no t available. Adonis ABREU-Simeon PFT ORDERABLES Sleep Study - HIM Scan (05/15/2015) Narrative This result has an attachment that is no t available. Adonis ABREU-Simeon PFT ORDERABLES documented in this encounter Visit Diagnoses Not on filedocumented in this encounter Care Teams Interface Analyst Relationship Specialty Start Date End Date Juan José Michelle MD PCP - General Internal Medicine 05/08/15 01/09/21 documented as of this encounter
--- OUTSIDE RECORDS SUMMARY | 2022-06-20 14:19 | XMS_ITS | Encounter Summary ---
:1945 Author Organization [facility] Address [address] [place] [address] Care Team Providers Name Role Phone Juan José Michelle MD Primary Care Provider Encounter Details Date Type Department Care Team Description 01/28/2013 Office Visit [facility] Ophthalmology Rashel Brenner, Primary open-angle glaucoma (Primary Dx); [address] [place] [address] [phone] [place], [place] [phone] (Wo rk) Social History Tobacco Use Types Packs/Day Years Used Date Smoking Tobacco: Never Alcohol Use Standard Drinks/Week Comments Not Asked 0 (1 standard drink = 0.6 oz pure alcoho l) Sex Assigned at Date Recorded Not on file documented as of this encounter Patient Instructions Patient InstructionsRashel Brenner MD - 01/28/2013 10:45 AM CDT Continue the Combigan twice daily in left eye Be sure to wait at least 5 minutes between drops. Close your eyes and pinch the bridge of your nose for 2 full minutes after every drop. We would like to see you back in 4 month(s). On that day we plan on doing: Eye Exam without Pupil Dilation and HVF 24-2 left eye only. Please note: if your visit requires that your eyes be dilated, your vision may be blurry for severalhours. The visit may take up to several hours, so please allow enough time for your exam. 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 Last saw this provider 10/01/2012 Ruddy Calhoun is a 67 yr old male here for his 4 month follow-up Glaucoma. Eye drops: He states he is using the blue cap drop BID in the OS only. Misses a drop occasionally. Takes 10 out of 14 in a week. Overall vision is stable. May have improved slightly. Review of Systems Const: (-) ENT: (-) Pulm: (-) Cardio: (-) GI: (-) : (-) MS: (-) Skin: (-) Neuro: (-) Heme: (-) Assessment and Plan: Encounter Diagnoses Name Primary? Primary open-angle glaucoma Yes, IOP seems adequate So will have patient just continue with combigan BID OS, will add back TVT as needed, RTC 3-4 months ??? Severe stage glaucoma This note has been scribed by Emi Roberson and has been reviewed by Rashel Brenner M.D. I, Rashel Brenner M.D., reviewed the above note scribed by Emi Roberson and it accurately reflects the work done by and decisions made by me. documented in this encounter Plan of Treatment Not on filedocumented as of this encounter Visit Diagnoses Diagnosis Primary open-angle glaucoma(365.11) - Pr imary Primary open-angle glaucoma Severe stage glaucoma documented in this encounter Care Teams Banquet Set Up Person Relationship Specialty Start Date End Date Juan José Michelle MD PCP - General Internal Medicine 07/15/12 documented as of this encounter
--- OUTSIDE RECORDS SUMMARY | 2022-06-20 14:19 | XMS_ITS | Encounter Summary ---
:1945 Author [facility] Address [address] [place] [address] Care Team Providers Name Role Phone Juan José Michelle MD Primary Care Provider Encounter Details Date Type Department Care Team Description 10/01/2012 Office Visit Juan R Ophthalmology Rashel Brenner, Primary open-angle glaucoma (Primary Dx); [address] [place] [address] [phone] [place], [place] [phone] (Wo rk) Social History Tobacco Use Types Packs/Day Years Used Date Smoking Tobacco: Never Alcohol Use Standard Drinks/Week Comments Not Asked 0 (1 standard drink = 0.6 oz pure alcoho l) Sex Assigned at Date Recorded Not on file documented as of this encounter Patient Instructions Patient InstructionsRashel Brenner MD - 10/01/2012 11:14 AM CST Continue the Combigan twice daily and the Travatan at bedtime, left eye only. Be sure to wait at least 5 minutes between drops. Close your eyes and pinch the bridge of your nose for 2 full minutes after every drop. We would like to see you back in 4 month(s). On that day we plan on doing: Eye Exam without Pupil Dilation. Please note: if your visit requires that your eyes be dilated, your vision may be blurry for severalhours. The visit may take up to several hours, so please allow enough time for your exam. 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 Combigan (+Travatan) trial OS today; on Travatan OS: 23 OU; STG OS<OD by 5 Last saw this provider 08/20/2012 Ruddy Calhoun is a 66 yr old male here for his 1 month follow up Glaucoma. Using travatan HS in OS and then added Combigan OS BID 2 weeks ago. Has forgotten the Combigan a few times. Review of Systems Const: (-) ENT: (-) Pulm: (-) Cardio: (-) GI: (-) : (-) MS: (-) Skin: (-) Neuro: (-) Heme: (-) Assessment and Plan: Encounter Diagnoses Name Primary? Primary open-angle glaucoma IOP great, will cpm with Travatan+Combigan OS. ??? Severe stage glaucoma M[employer] documented in this encounter Plan of Treatment Not on filedocumented as of this encounter Visit Diagnoses Diagnosis Primary open-angle glaucoma(365.11) - Pr imary Primary open-angle glaucoma Severe stage glaucoma documented in this encounter Care Teams Gas Meter Repairer Relationship Specialty Start Date End Date Juan José Michelle MD PCP - General Internal Medicine 07/15/12 documented as of this encounter
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
--- OUTSIDE RECORDS SUMMARY | 2022-06-20 14:19 | XMS_ITS | Encounter Summary ---
:1945 Author Organization [employer] Address [address] [place] [address] Care Team Providers Name Role Phone Juan José Michelle MD Primary Care Provider Encounter Details Date Type Department Care Team Description 08/20/2012 Office Visit [facility] Ophthalmology Rashel Brenner, Primary open-angle glaucoma (Primary Dx); [address] Orbital fracture left eye; [place] [address] Hypermetropia; [phone] [place], [place] Severe stage glaucoma [address] (Wo rk) Social History Tobacco Use Types Packs/Day Years Used Date Smoking Tobacco: Never Alcohol Use Standard Drinks/Week Comments Not Asked 0 (1 standard drink = 0.6 oz pure alcoho l) Sex Assigned at Date Recorded Not on file documented as of this encounter Patient Instructions Patient InstructionsRashel Brenner MD - 08/20/2012 12:15 PM CST Continue the Travatan once daily at bedtime in the left eye only. Start the Combigan (blue cap) 2 weeks prior to your next appointment, twice daily in the left eye only. Close your eyes and pinch the bridge of your nose for 2 full minutes after every drop. We would like to see you back in 1 month(s). On that day we plan on doing: Eye Exam without Pupil Dilation. Please note: if your visit requires that your eyes be dilated, your vision may be blurry for severalhours. The visit may take up to several hours, so please allow enough time for your exam. 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 Travatan trial today OS; STG OS<OD by 5 HVF, Pach, and ON photos today Last saw this provider Ruddy Calhoun is a 66 yr old male here for his 1 month follow-up Glaucoma. Eye drops: tolerating drops well and no problems obtaining drops or taking them as instructed. Overall vision is stable. Pt did start Travatan a month ago OS. Pt says orbital fracture is healing Fine. Review of Systems Const: (-) ENT: (-) Pulm: (-) Cardio: (-) GI: (-) : (-) MS: (-) Skin: (-) Neuro: (-) Heme: (-) Visual Field: Interpretation: OD WNL; OS sup arc, split fixation Performed by Austin Crawley for dx glaucoma. Pachymetry: Interpretation: OD WNL; OS thin Performed for dx glaucoma. Fundus photography: Interpretation: see exam section for disc description Performed by Odalis Gann for dx glaucoma Assessment and Plan: Encounter Diagnoses Name Primary? Primary open-angle glaucoma Very advanced OS as expected from previous exam. Consider Lumigan trial to see if any better than Travatan (doubtful) but no samples available now so will instead add Combigan. Will eventually need both eyes treated. ??? Orbital fracture left eye ??? Hypermetropia Severe stage glaucoma ER SERVICES REPRESENTATIVE documented in this encounter Plan of Treatment Not on filedocumented as of this encounter Visit Diagnoses Diagnosis Primary open-angle glaucoma(365.11) - Pr imary Primary open-angle glaucoma Orbital fracture left eye Other facial bones, closed fracture Hypermetropia Severe stage glaucoma documented in this encounter Care Teams Economic Consultant Relationship Specialty Start Date End Date Juan José Michelle MD PCP - General Internal Medicine 07/15/12 documented as of this encounter
--- OUTSIDE RECORDS SUMMARY | 2022-06-20 14:19 | XMS_ITS | Encounter Summary ---
:1945 Author Organization [facility] Address [address] [place] [address] Care Team Providers Name Role Phone Juan José Michelle MD Primary Care Provider Reason for Visit Procedure/Equipment (Routine) - Closed Specialty Diagnoses / Procedures Referred By Contact Refer red To Contact Procedures Emergency Department XR KNEE AP/MO/LAT LEFT [address] [facility] ([place]) [place] [address] Referral ID Status Reason Start Date Expiration Date Visits Requ ested Visits Authorized [id number] Closed 07/15/2012 1 1 Encounter Details Date Type Department Care Team Description 07/15/2012 [facility] [address] [place], [place] [id number] Social History Tobacco Use Types Packs/Day Years Used Date Smoking Tobacco: Never Alcohol Use Standard Drinks/Week Comments Not Asked 0 (1 standard drink = 0.6 oz pure alcoho l) Sex Assigned at Date Recorded Not on file documented as of this encounter Plan of Treatment Not on filedocumented as of this encounter Procedures Procedure Name Priority Date/Time Associated Diagnosis Comme nts XR KNEE RT STAT 07/15/2012 12:18 PM Results for this AP/MO/LAT ([facility]) CDT procedure are in the results section. XR KNEE LT STAT 07/15/2012 12:18 PM Results for this AP/MO/LAT ([facility]) CDT procedure are in the results section. documented in this encounter Results XR KNEE AP/MO/LAT RIGHT ([facility]) (07/15/2012 12:18 [...] of the patella. Otherwise unremar kable. Lupillo RAMÍREZ XR KNEE AP/MO/LAT LEFT ([facility]) (07/15/2012 12:18 [...] or joint effusion. Lupillo Mckeon MD RAD DES[facility]REE documented in this encounter Visit Diagnoses Not on filedocumented in this encounter Care Teams Charter Boat Operator Relationship Specialty Start Date End Date Juan José Michelle MD PCP - General Internal Medicine 07/15/12 documented as of this encounter
--- OUTSIDE RECORDS SUMMARY | 2022-06-20 14:19 | XMS_ITS | Clinical Summary ---
:1945 Author Organization [facility] Address [address] [place] [address] Care Team Providers Name Role Phone Juan José Michelle MD Primary Care Provider Source Comments You are receiving this document as you are listed as the primary care provider,follow-up provider, or the patient has been referred to you for consultation.This is in compliance with the Medicare and Medicaid EHR Incentive Program,which states Providers who transition their patient to another setting of careor provider of care or refers their patient to another provider of care shouldprovide summarycare record for each transition of care or referral. [facility] Allergies No known active allergies Medications Medication Sig Dispensed Refills Start Date End Date Status LISINOPRIL-HYDROCHLORO 1 TABLET DAILY 30 99 12/04/2006 Active THIAZIDE 10-12.5 MG OR TABSIndications: Elevated blood pressure FLONASE 50 MCG/ACT NA Use two sprays in 1 11 12/24/2006 Active SUSPIndications: Sinus each nostril once Infection daily. oxyCODONE-acetaminophe Take 1-2 Tabs by 15 Tab 0 07/15/2012 Active n (AKA PERCOCET) 5-325 mouth every 4 MG tablet hours as needed for Pain. Brimonidine Apply or instill 1 10 mL 12 01/28/2013 Active Tartrate-Timolol Drop into left eye (COMBIGAN) 0.2-0.5 % two times a day. eye drop solution travoprost, Apply or instill 1 2.5 mL 12 06/03/2013 Active benzalkonium free, Drop into both (TRAVATAN Z) 0.004 % eyes daily at eye drop solution bedtime. unknown medication LW 0 11/27/2006 Active Comment:Incomplete Med List LW Addl Instr:does not know name of BP med LISINOPRIL-HCTZ (AKA Indications: PN: 0 12/21/2014 Active PRINZIDE;ZESTORETIC) АЛЕКСАНДР TATE 20-25 MG Mon Feb 13, 2015 tabletIndications: 1:20 PM Received АЛЕКСАНДР TATE Mon from: External Feb 13, 2015 1:20 PM Pharmacy Received from: External Pharmacy atovaquone-proguanil Take 1 tab 2 days 18 Tab 0 10/04/2016 Active (MALARONE) 250-100 MG before malarial tabletIndications: mosquito exposure, Counseling for travel daily while there, and 7 days after. azithromycin Take 1 tab daily 3 Tab 0 10/01/2016 Active (ZITHROMAX) 500 MG as needed for tabletIndications: severe traveler's Counseling for travel diarrhea Active Problems Problem Noted Date Anatomical narrow angle borderline glaucoma 12/08/2013 Overview: Narrow Angles Hyperopia 12/03/2013 Severe stage glaucoma 08/20/2012 Orbital fracture 08/10/2012 Overview: Orbital fracture left eye HTN (hypertension) 03/27/2012 Obesity 12/24/2006 Overview: [facility] Essential hypertension 05/06/2005 Overview: [facility] Primary open angle glaucoma 05/06/2005 Immunizations Name Administration Dates Next Due Flu Vac (3+ yrs) 09/02/2006, 08/28/2005, 09/13/2004 Flu Vac Preserv Free (3+yrs) 07/16/2006 HepA Adult (19+ yrs) 04/09/2005, 05/14/2000 HepB Adult (Engerix-B, 20+ yrs, 3 dose 06/16/2000, 0 series) HepB, Unspecified Formulation 03/30/2001 IPV (Polio) 05/14/2000 Influenza IIV3 (Trivalent) Fluzone 10/01/2016 Highdose, 65+ Yrs ([address]) MPSV4 (Menomune) 03/27/2012, 04/09/2005, 06/16/2000 PCV13 (Prevnar) 09/20/2014 PPSV23 (Pneumovax) 03/27/2012 TDAP (ADACEL) 12/12/2008 Td 05/14/2000 Tdap 09/20/2014 Typhoid (Typhim Vi, IM) 02/13/2015, 04/09/2005, 04/27/2002 Typhoid (Vivotif, Oral) 12/12/2008 YF (Yellow Fever) 03/27/2012, 06/16/2000 Family History Medical History Relation Name Comments Cataract Father Relation Name Status Comments Father Social History Tobacco Use Types Packs/Day Years [...] CDT Inhaled Oxygen Concentration - - Weight 104.2 kg (229 lb 12.8 oz) 12/24/2006 4:00 PM CDT Height 172.7 cm (5' 8) 12/24/2006 4:00 PM CDT Body Mass Index 34.94 12/24/2006 4:00 PM CDT Plan of Treatment Health Maintenance Due Date Last Done Comments Colon Cancer Screening Plan 1945 Due Hep C Screening (Preventive 1945 Services) Medicare Annual Wellness 1945 Visit COVID-19 Vaccine (#1) 04/20/1946 Zoster/Shingles (1 of 2) 1996 Influenza (#1) 2022 10/01/2016, 09/02/2006, 07/16/2006, Additional history exists DTaP/Tdap/Td (3 - Tdap) 09/20/2024 09/20/2014, 12/12/2008, 05/14/2000 IPV (Polio) Aged Out 05/14/2000 No longer eligib le based on patient 's age to complete this topic HepB Completed 03/30/2001, 06/16/2000, 05/14/2000 HepA Aged Out 04/09/2005, 05/14/2000 No longer eligible based on patient 's age to complete this topic MCV4 Aged Out 03/27/2012, 04/09/2005, No longe r eligible 06/16/2000 based on patient 's age to complete this topic Pneumococcal 65+ Yrs Completed 09/20/2014, 03/27/2012 Hib Aged Out No longer eligib le based on patient 's age to complete this topic Insurance Payer Benefit Plan Subscriber ID Effective Phone Address Typ e / Group Dates MISC INS WORK MISC INS WORK [id number] 2012-Pr [phone] [address] Workers Comp COMP WC COMP WC esent [id number] [place] [address] MEDICA MEDICA PRIME [id number] 2011-Pres [phone] Med icare SOLUTION ent 755 MEDICARE MEDICARE [id number] 2015-Pres [phone] Medic are MANAGED CARE ent [phone] (Work) [place] [address] Ruddy Calhoun Personal/Family Self 1945 [id number] [place] [address] Ruddy Calhoun Personal/Family Self 1945 [address] ([id number] [place] [address] Ruddy Calhoun Cristóbal Workers Comp Self 1945 [phone] (Work) [place] [address] Care Teams Strap Machine Operator Automatic Relationship Specialty Start Date End Date Juan José Michelle MD PCP - General Internal Medicine 07/15/12 (work)
--- OUTSIDE RECORDS SUMMARY | 2022-06-20 14:19 | XMS_ITS | Encounter Summary ---
:1945 Author Organization [id number] Address [address] [place] [address] Care Team Providers Name Role Phone Juan José Michelle MD Primary Care Provider Encounter Details Date Type Department Care Team Description 09/16/2013 Office Visit [place] [facility] Rashel Brenner, Primary open-angle glaucoma (Primary Dx); [address] Severe stage glaucoma; [place] [address] Orbital fracture left eye [phone] [place], [place] [phone] (Wo rk) Social History Tobacco Use Types Packs/Day Years Used Date Smoking Tobacco: Never Alcohol Use Standard Drinks/Week Comments Not Asked 0 (1 standard drink = 0.6 oz pure alcoho l) Sex Assigned at Date Recorded Not on file documented as of this encounter Patient Instructions Patient InstructionsRashel Brenner MD - 09/16/2013 11:37 AM CST Continue the Combigan twice daily in the left eye only. Travatan at bedtime, but use in BOTH EYES. Be sure to wait at least 5 minutes between drops. Close your eyes and pinch the bridge of your nose for 2 full minutes after every drop. We would like to see you back in 3-4 month(s). On that day we plan on doing: Eye Exam without Pupil Dilation, GONIO and HVF 24- 2 BOTH EYES. Please note: if your visit requires that your eyes be dilated, your vision may be blurry for severalhours. The visit may take up to several hours, so please allow enough time for your exam. 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 Last saw this provider 06/03/2013 Ruddy Calhoun is a 67 yr old male here for his 4 month follow-up Glaucoma. Eye drops: tolerating drops well. Pt states he lost his drop instruction list so he has been using his Combigan eye drop at least once per day in left eye, however states it is rare that he gets them in BID as directed. Overall vision is stable. Pt states he may need to start wearing glasses for the distance but doesn't notice much in difficulty. Eye Meds: Combigan OS QD ( pt states he rarely uses it BID as directed) Lgtt 8:15am Travatan Z OU QHS Lgtt 10pm Review of Systems Const: (-) ENT: (-) Pulm: (-) Cardio: (-) GI: (-) : (-) MS: (-) Skin: (-) Neuro: (-) Heme: (-) Assessment and Plan: Encounter Diagnoses Name Primary? Primary open-angle glaucoma Yes, NO change disc, IOP good, RTC 3-4 months with HVF 24-2 OU and Gonio, Continue previous managment plan, Stressed importance of drop compliance will use TVT QHS OU, and combigan BID OS ??? Severe stage glaucoma ??? Orbital fracture left eye This note has been scribed by Emi Roberson and has been reviewed by Rashel Brenner M.D. I, Rashel Brenner M.D., reviewed the above note scribed by Emi Roberson and it accurately reflects the work done by and decisions made by me. 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
--- OUTSIDE RECORDS SUMMARY | 2022-06-20 14:19 | XMS_ITS | Encounter Summary ---
:1945 Author Organization [facility] Address [address] [place] [address] Care Team Providers Name Role Phone Unassigned, Provider Primary Care Provider Unavailable Encounter Details Date Type Department Care Team Description 12/12/2008 Office Visit [facility] [address] [facility] [address] [facility] [address] [place] [address] [place] [address] [phone] Social History Tobacco Use Types Packs/Day Years Used Date Smoking Tobacco: Never Alcohol Use Standard Drinks/Week Comments Not Asked 0 (1 standard drink = 0.6 oz pure alcoho l) Sex Assigned at Date Recorded Not on file documented as of this encounter Progress Notes Abbi Shaver RN - 12/12/2008 12:01 AM CDT Progress Notes signed by Abbi Shaver at 12/12/08 1618 Author: Abbi Shaver Service: (none) Author Type: Registered Nurse Filed: 12/12/08 0000 Note Time: 12/12/08 0001 Status: Signed Fence Maker: Abbi Shaver (Resource) Travel Clinic Initial Visit Patient is seen in Travel Clinic Patient is seen in Travel Clinic accompanied by spouse, for travel education and counseling. Barrier(s) to care: None. TRAVEL PLANS Patient states they are planning to travel to: [facility] Plans include travel to and/or lodging at: rural areas, urban areas High Risk Areas: Patient is traveling to Yellow Fever risk area. Patient is traveling to Malaria risk area for 12 days. Reviewed a Malaria risk map with the patient and they were given a copy. Departure Date: 12/29/2008 Estimated Length of Stay: 12 days. While traveling, patient plans to be staying at: bed and breakfasts Purpose of Travel: business, pleasure, HEALTH HISTORY Medications: see list ADR: None. Previous Health History: Problem List in electronic medical record was reviewed. No additional problems relevant to travel were identified. Patient reports a history of Hypertension, PATIENT EDUCATION Patient was given verbal and/or written information about: Dengue Fever, Diphtheria/Tetanus, Hepatitis A, Hepatitis B, HIV, Influenza, Malaria, Meningitis, Polio, Rabies--pre-exposure schedule, Rabies--post-exposure protocol, Schistosomiasis, Seafood Poisoning, Sexually Transmitted Diseases, Tickborne Illnesses, Travax/CDC information, Traveler's Diarrhea, Tuberculosis, Typhoid, Yellow Fever, Reviewed vaccine schedule and efficacy. Patient was also provided information about health care and insurance information while traveling abroad. Patient appears to understand all the information provided. IMMUNIZATIONS See immunization module on PHP for current immunizations. Patient was given the following immunizations per clinic protocol: Tdap, Ty2la, Reaction to Vaccine: Patient had no reaction. PRESCRIPTIONS Reviewed medication options for itinerary. Risks, benefits and side effects were discussed. The following prescriptions/OTC medications were given: Lariam. (Patient reports they have used Lariam in the past and tolerated it well.) Cipro. Imodium. (Patient was instructed to follow package directions for Imodium dose.) Pepto Bismol. (Patient was instructed to follow package directions for Pepto Bismol dose.) Patient educational information regarding these prescribed medications was provided. PLAN Laboratory Studies: No labs ordered. Return To Clinic: No follow-up visit needed. Time spent in group counselin minutes. *SH~TRAVEL~INT ~[place] Note completed on: 12/12/2008 4:16 PM documented in this encounter Plan of Treatment Not on filedocumented as of this encounter Visit Diagnoses Not on filedocumented in this encounter Care Teams [place] Cutter Operator Relationship Specialty Start Date End Date Unassigned, Provider PCP - General 10/25/00 07/14/[address] [place] [address] documented as of this encounter
--- OUTSIDE RECORDS SUMMARY | 2022-06-20 14:19 | XMS_ITS | Encounter Summary ---
:1945 Author Organization [facility] Address [address] [place] [address] Care Team Providers Name Role Phone Juan José Michelle MD Primary Care Provider Reason for Visit Reason Onset Date Comments Travel Consult 10/01/2016 Encounter Details Date Type Department Care Team Description 10/01/2016 Initial Consult [place] [facility] Odalis Willis unseling for travel (Primary Dx); Clinic C, MJ, SARA Need for influenza vaccination [address] [place] [address] [facility] [phone] [place] [address] Social History Tobacco Use Types Packs/Day Years Used Date Smoking Tobacco: Never Alcohol Use Standard Drinks/Week Comments Not Asked 0 (1 standard drink = 0.6 oz pure alcoho l) Sex Assigned at Date Recorded Not on file documented as of this encounter Progress Notes Odalis Willis APRN, CNP - 10/01/2016 10:21 AM CST Subjective: Ruddy Calhoun is a 70 y.o. male who presents to the clinic for travel consultation accompanied by spouse,. TRAVEL PLANS Planned departure date: October 06, 2016 Time in developing countries: 9 days. Countries of travel: [place] Areas in country: rural and urban Traveling to Malarial area: yes Time in malarial area: 9 days. Reviewed Malarial risk map: yes Prior malarial chemoprophylaxis use: Yes, tolerated malarone and lariam in the past Traveling to [facility]: no Accommodations: guest house Purpose of travel: volunteering PRIOR HEALTH HISTORY Currently ill / Fever: no Currently taking antibiotics: no History of liver or kidney disease: No History of anxiety or depression: No History of cardiac arrhythmia or rhythm conduction abnormalities (QT prolongation): No History of GERD/IBS: No History of cancer: no Currently immune compromised or taking high dose steroids: No Other relevant travel health history: no Patient Active Problem List Diagnosis ??? Essential hypertension (HRC) ??? Primary open angle glaucoma ??? Obesity (HRC) ??? Orbital fracture left eye ??? Severe stage glaucoma ??? Hyperopia ??? Narrow Angles ??? HTN (hypertension) (HRC) No Known Allergies Outpatient Prescriptions Prior to Visit Medication Sig Dispense Refill ??? Brimonidine Tartrate-Timolol (COMBIGAN) 0.2-0.5 % eye drop solution Apply or instill 1 Drop intoleft eye two times a day. 10 mL 12 ??? FLONASE 50 MCG/ACT NA SUSP Use two sprays in each nostril once daily. 1 11 ??? LISINOPRIL-HCTZ (AKA PRINZIDE;ZESTORETIC) 20-25 MG tablet Indications: PN: АЛЕКСАНДР TATE Feb 13, 2015 1:20 PM Received from: External Pharmacy 0 ??? LISINOPRIL-HYDROCHLOROTHIAZIDE 10-12.5 MG OR TABS 1 TABLET DAILY 30 99 ??? oxyCODONE-acetaminophen (AKA PERCOCET) 5-325 MG tablet Take 1-2 Tabs by mouth every 4 hours as needed for Pain. 15 Tab 0 ??? travoprost, benzalkonium free, (TRAVATAN Z) 0.004 % eye drop solution Apply or instill 1 Drop into both eyes daily at bedtime. 2.5 mL 12 ??? unknown medication LW Comment:Incomplete Med List LW Addl Instr:does not know name of BP med ??? atovaquone-proguanil (AKA MALARONE) 250-100 MG tablet Take one tab 2 days before entry into malarial area, daily during and continue for 7 days after leaving malarial area. 31 tablet 0 ??? atovaquone-proguanil (AKA MALARONE) 250-100 MG tablet Take 1 tab starting 2 days before malarialmosquito risk, daily while there, and for 7 days after. 19 tablet 0 No facility-administered medications prior to visit. Assessment: Contraindications to travel: no Plan: PATIENT EDUCATION Patient was given verbal and/or written information about: Dengue Fever, Diphtheria/Tetanus, Hepatitis A, Hepatitis B, HIV, Influenza, Insect-related illnesses and prevention, Malaria, Rabies--post-exposure schedule, Sexually Transmitted Diseases, Travax/CDC information, Traveler's Diarrhea, Typhoid, Reviewed vaccine schedule and efficacy. Patient was also provided information about health care and insurance information while traveling abroad. Patient appears to understand all the information provided. Discussed the use of Pepto Bismol and Imodium (follow package insert) See below for vaccines and medications ordered this visit. Patient had no reaction. Patient declined: Shingles FOLLOW UP Laboratory Studies: No labs ordered. Return To Clinic: No follow-up visit needed. Time spent on travel education Individual or Group counselin minutes. Total appointment time: 60 minutes. IMMUNIZATIONS AND PRESCRIPTIONS Immunization counseling was provided for the vaccines that were administered at the visit Orders Placed This Encounter Procedures ??? Influenza (Fluzone Highdose, 65+ Yrs) Orders Placed This Encounter Medications ??? atovaquone-proguanil (MALARONE) 250-100 MG tablet Sig: Take 1 tab 2 days before malarial mosquito exposure, daily while there, and 7 days after. Dispense: 18 Tab Refill: 0 ??? azithromycin (ZITHROMAX) 500 MG tablet Sig: Take 1 tab daily as needed for severe traveler's diarrhea Dispense: 3 Tab Refill: 0 Immunization History Administered Date(s) Administered ??? Flu Vac (3+ yrs) 09/13/2004, 08/28/2005, 09/02/2006 ??? Flu Vac Preserv Free (3+yrs) 07/16/2006 ??? HepA Adult (19+ yrs) 05/14/2000, 04/09/2005 ??? HepB Adult (20+ yrs) 05/14/2000, 06/16/2000 ??? Hepatitis B-historical 03/30/2001 ??? IPV (Polio) 05/14/2000 ??? Influenza (Fluzone HighDose, 65+ yrs) 10/01/2016 ??? MPSV4 (Menomune) 06/16/2000, 04/09/2005, 03/27/2012 ??? PCV13 (Prevnar) 09/20/2014 ??? PPSV23 (Pneumovax) 03/27/2012 ??? TDAP (ADACEL) 12/12/2008 ??? Td 05/14/2000 ??? Tdap 09/20/2014 ??? Typhoid (Typhim Vi, IM) 04/27/2002, 04/09/2005, 02/13/2015 ??? Typhoid (Vivotif, Oral) 12/12/2008 ??? YF (Yellow Fever) 06/16/2000, 03/27/2012 Electronically signed by Odalis Willis, SENIOR REVENUE ACCOUNTANT, SCREW MACHINE ADJUSTER AUTOMATIC at 10/01/2016 10:50 AM TURNSTILE ATTENDANT documented in this encounter Plan of Treatment Not on filedocumented as of this encounter Visit Diagnoses Diagnosis Counseling for travel - Primary Other specified counseling Need for influenza vaccination Need for prophylactic vaccination and in oculation against influenza documented in this encounter Care Teams Manufacturing Mechanic Relationship Specialty Start Date End Date Juan José Michelle MD PCP - General Internal Medicine 07/15/12 documented as of this encounter
--- OUTSIDE RECORDS SUMMARY | 2022-06-20 14:19 | XMS_ITS | Encounter Summary ---
:1945 Author [facility] Address [address] [place] [address] Care Team Providers Name Role Phone Juan José Michelle MD Primary Care Provider Reason for Visit Consult/Transfer Care (Routine) - Closed Specialty Diagnoses / Procedures Referred By Contact Refer red To Contact Emergency Departm ent [address] [place] [address] Referral ID Status Reason Start Date Expiration Date Visits Requ ested Visits Authorized [id number] Closed 07/15/2012 1 1 Encounter Details Date Type Department Care Team Description 07/17/2012 [facility] Visit [facility] Ras[facility] Brenner, Orbital Fracture left eye (P rimary Dx); [address] Primary open-angle glaucoma; [place] [address] Periorbital ecchymosis [phone] [place] [address] (Wo rk) Social History Tobacco Use Types Packs/Day Years Used Date Smoking Tobacco: Never Alcohol Use Standard Drinks/Week Comments Not Asked 0 (1 standard drink = 0.6 oz pure alcoho l) Sex Assigned at Date Recorded Not on file documented as of this encounter Patient Instructions Patient InstructionsRashel Brenner MD - 07/17/2012 4:39 PM CDT Travatan drop once daily in the left eye at bedtime daily. Close your eyes and pinch the bridge of your nose for 2 full minutes after every drop. The bruises should resolve, and the fractures should not cause a problem. We would like to see you back in 1 month(s). On that day we plan on doing: Eye Exam with Pupil Dilation and Visual Field 24- 2, Corneal thickness measurement and Optic Nerve Photos. Please note: if your visit requires that your eyes be dilated, your vision may be blurry for severalhours. The visit may take up to several hours, so please allow enough time for your exam. 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 Ruddy Calhoun is a 66 yr old male here for consultation requested by Dr Lupillo Mckeon [facility] ED 07/15/12. Consult for patient fell off back of truck on the morning of 07/15/12 landed on left wrist and hit face on pavement. Orbital fractures OS, Eyes were swollen shut yesterday OS>OD, vision improving, no diplopia. Pain tolerable with Aleve and ibuprofen. Vision is baseline, no diplopia. Review of Systems Const: (-) ENT: (-) Pulm: (-) Cardio: (-) GI: (-) : (-) MS: (-) Skin: (-) Neuro: (-) Psych: no sleep problems Heme: (-) Assessment and Plan: Encounter Diagnoses Name Primary? Primary open-angle glaucoma Advanced OS, will get ON photos and pach next visit,and will try to schedule HVF too. Start on Travatan OS today. Explained Will dilate again next visit and check for PXF (difficult exam today due to lid edema). ??? Periorbital ecchymosis reassured ??? Orbital Fracture left eye Reassured, unlikely to cause a problem documented in this encounter Plan of Treatment Scheduled Referrals Name Type Priority Associated Diagnoses Order [facility] ohiodule Ophthalmology referral Referral Routine Order ed: 07/15/2012 from ED - WEEKDAY documented as of this encounter Visit Diagnoses Diagnosis Orbital Fracture left eye - Primary Other facial bones, closed fracture Primary open-angle glaucoma(365.11) Primary open-angle glaucoma Periorbital ecchymosis Contusion of eyelids and periocular area documented in this encounter Care Teams Technology Risk Intern Relationship Specialty Start Date End Date Juan José Michelle MD PCP - General Internal Medicine 07/15/12 documented as of this encounter
--- OUTSIDE RECORDS SUMMARY | 2022-06-20 14:19 | XMS_ITS | Encounter Summary ---
:1945 Author Organization [employer] Address [address] [place] [address] Care Team Providers Name Role Phone Juan José Michelle MD Primary Care Provider Encounter Details Date Type Department Care Team Description 12/16/2013 Office Visit [facility] Rashel Brenner, Primary open-angle glaucoma (Primary Dx); [address] Orbital fracture, with routine healing, subsequent encounter; [place] [address] Severe stage glaucoma; [phone] [place], [place] Hyperopia, bi lateral; [id number] [place] [phone] (Wo rk) Social History Tobacco Use Types Packs/Day Years Used Date Smoking Tobacco: Never Alcohol Use Standard Drinks/Week Comments Not Asked 0 (1 standard drink = 0.6 oz pure alcoho l) Sex Assigned at Date Recorded Not on file documented as of this encounter Patient Instructions Patient InstructionsRashel Brenner MD - 12/16/2013 5:04 PM CDT Continue the Combigan twice daily in the [...] encounter Progress Notes Rashel Brenner MD - 12/03/2013 11:16 AM CDT Risk: IOP, FH (M) Peak IOP: 23 Pach: 586/549 Goal OS: mid teens Q3-4m visit with HVF OS every other and AND od EVERY YEAR Using Combigan+Travatan OS- but has only been using combigan BID OS HVF OS: 05/28 JT: 09/28 Gonio+HVF OU today --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 Eye drops: tolerating drops well. Overall vision is unchanged. Pt notes he needs a little more light to read at near now. Distance vision is still good. Pt states he is moving and hasnt been able to find his Travatan Z so he hasnt used it in the last 1-2 weeks. Eye meds: Combigan BID OS Lgtt 9am Travatan Z QHS OU (pt hasnt used for 1-2 weeks) Visual Field: Interpretation: OD: Superior depression , non specific, watch for early arc, OS: superior arc, split fixation, trace increase in lisa, but probably no significant change Performed by Austin daly glaucoma Review of Systems Const: (-) ENT: (-) Pulm: (-) Cardio: (-) GI: (-) : (-) MS: (-) Skin: (-) Neuro: (-) Heme: (-) Assessment and Plan: Encounter Diagnoses Name Primary? Primary open-angle glaucoma Yes, IOP good on drops, , no change disc, Continue previous managment plan, RTC 3-4 months nondilated ??? Orbital fracture, with routine healing, subsequent encounter ??? Severe stage glaucoma ??? Hyperopia, bilateral ??? [place] This note has been scribed by ANGELINA Castaneda. documented in this encounter Plan of Treatment Not on filedocumented as of this encounter Visit Diagnoses Diagnosis Primary open-angle glaucoma - Primary Orbital fracture, with routine healing, subsequent encounter Severe stage glaucoma Hyperopia, bilateral [place] Anatomical narrow angle borderline glauc ashley documented in this encounter Care Teams Elementary Classroom Teacher Relationship Specialty Start Date End Date Juan José Michelle MD PCP - General Internal Medicine 07/15/12 documented as of this encounter
--- OUTSIDE RECORDS SUMMARY | 2022-06-20 14:19 | XMS_ITS | Encounter Summary ---
:1945 Author Organization [facility] Address [address] [place] [address] Care Team Providers Name Role Phone Juan José Michelle MD Primary Care Provider Encounter Details Date Type Department Care Team Description 12/16/2013 Office Visit [facility] Primary open-angle [address] glaucoma (Primary Dx) [place], [place] [id number] Social History Tobacco Use Types Packs/Day Years Used Date Smoking Tobacco: Never Alcohol Use Standard Drinks/Week Comments Not Asked 0 (1 standard drink = 0.6 oz pure alcoho l) Sex Assigned at Date Recorded Not on file documented as of this encounter Progress Notes Austin Crawley COA - 12/16/2013 3:11 PM CDT Visual Field 24-[address] Bone for DX POAG performed by TEAGAN Barahona No need to call with results - patient seeing provider today. TEAGAN Barahona documented in this encounter Plan of Treatment Not on filedocumented as of this encounter Visit Diagnoses Diagnosis Primary open-angle glaucoma - Primary documented in this encounter Care Teams Pilot Boat Deckhand Relationship Specialty Start Date End Date Juan José Michelle MD PCP - General Internal Medicine 07/15/12 documented as of this encounter
--- OUTSIDE RECORDS SUMMARY | 2022-06-20 14:19 | XMS_ITS | Encounter Summary ---
:1945 Author Organization [facility] Address [address] [place] [address] Care Team Providers Name Role Phone Juan José Michelle MD Primary Care Provider Encounter Details Date Type Department Care Team Description 06/03/2013 Office Visit [facility] Rashel Arora, Primary open-angle glaucoma( 365.11) (Primary Dx); [address] [address] [phone] [place], [place] [phone] (Wo rk) Social History Tobacco Use Types Packs/Day Years Used Date Smoking Tobacco: Never Alcohol Use Standard Drinks/Week Comments Not Asked 0 (1 standard drink = 0.6 oz pure alcoho l) Sex Assigned at Date Recorded Not on file documented as of this encounter Patient Instructions Patient InstructionsRashel Arora MD - 06/03/2013 2:25 PM CDT Continue the Combigan twice daily in the left eye only. Add back the Travatan at bedtime, but use in BOTH EYES. Be sure to wait at least 5 minutes between drops. Close your eyes and pinch the bridge of your nose for 2 full minutes after every drop. We would like to see you back in 4 month(s). On that day we plan on doing: Eye Exam with Pupil Dilation. Please note: if your visit requires that your eyes be dilated, your vision may be blurry for severalhours. The visit may take up to several hours, so please allow enough time for your exam. 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 Last saw this provider 01/28/2013 Ruddy Calhoun is a 67 yr old male here for his 4 month follow-up Glaucoma. Eye drops: tolerating drops well. Overall vision is unchanged. Presbyopia- OTC readers only. Review of Systems Const: (-) ENT: (-) Pulm: (-) Cardio: (-) GI: (-) : (-) MS: (-) Skin: (-) Neuro: (-) Heme: (-) Visual Field: Interpretation OS: sup arc, split fixation, no change Performed by Austin for dx POAG Assessment and Plan: Encounter Diagnoses Name Primary? Primary open-angle glaucoma IOP difference not as impressive as last visit, and even though no change discs or HVF probably best to keep in low teens if possible. Will add back Travatan and use OU (since OD peak was 23), but keep Combigan in OS only. JT next visit and HVF OU on following. ??? Severe stage glaucoma documented in this encounter Plan of Treatment Not on filedocumented as of this encounter Visit Diagnoses Diagnosis Primary open-angle glaucoma(365.11) - Pr imary Primary open-angle glaucoma Severe stage glaucoma documented in this encounter Care Teams Welt Stitch Cleaner Relationship Specialty Start Date End Date Juan José Michelle MD PCP - General Internal Medicine 07/15/12 documented as of this encounter
--- OUTSIDE RECORDS SUMMARY | 2022-06-20 14:19 | XMS_ITS | Encounter Summary ---
:1945 Author Organization [facility] Address [address] [place] [address] Care Team Providers Name Role Phone Juan José Michelle MD Primary Care Provider Reason for Visit Reason Comments Other mulitple facial fractures Consult/Transfer Care (Routine) - Closed Specialty Diagnoses / Procedures Referred By Contact Refer red To Contact Emergency Departm ent [address] [place] [id number] Referral ID Status Reason Start Date Expiration Date Visits Requ ested Visits Authorized [id number] Closed 07/15/2012 1 1 Encounter Details Date Type Department Care Team Description 07/23/2012 Office Visit [facility] Bar Alfaro trauma (Primary Dx); 401 Otolaryngology MD Last Multiple facial bone fractures; [address] [place] [address] [place], [place] [phone] Social History Tobacco Use Types Packs/Day Years Used Date Smoking Tobacco: Never Alcohol Use Standard Drinks/Week Comments Not Asked 0 (1 standard drink = 0.6 oz pure alcoho l) Sex Assigned at Date Recorded Not on file documented as of this encounter Progress Notes Bar Alfaro MD - 07/23/2012 2:21 PM CST OTOLARYNGOLOGY CONSULT CHIEF COMPLAINT: Chief Complaint Patient presents with ??? Other mulitple facial fractures I was asked to see this patient by Lupillo Mckeon MD HPI: Ruddy Calhoun is a 66 yr old male here today s/p ED visit from 4 feet fall when he was stepping back on a truck bed on 07/15/12 in which he suffered multiple non-displaced fractures of various facial bones. He was seen by the ENT consultation service in the ED and was neurologically intact. Decision was non- operative management at the time. Patient has no complaints except for inner lower lip trauma from his teeth, sustained during a fall. Denies HAs, contour irregularities over the forehead, contour irregularities over the periorbital regions, clear rhinorrhea, blurry vision, diplopia, othervisual disturbances, malocclusion of the dentition, epistaxis, change in nasal appearance, nasal obst ruction, otalgia or otorrhea. ROS: No history of coagulopathy No history of hypertrophic scar formation Denies nasal congestion or epistaxis. no weight loss no odynophagia no fevers, chills, night sweats no chest pain, shortness of breath no stridor or difficulty breathing No impaired renal function ROS: Remainder of all 10 review of systems otherwise negative. Past Medical History Diagnosis Date ??? HYPERTENSION NOS 05/06/2005 ??? Obesity, unspecified 12/24/2006 PSH: Repair of bowel perforation 30 years prior No Known Allergies Outpatient Prescriptions Prior to Visit Medication Sig Dispense Refill ??? amoxicillin-clavulanate (AKA AUGMENTIN) 875 mg tablet Take 1 Tab by mouth two times a day for 7 days. 14 Tab 0 ??? FLONASE 50 MCG/ACT NA SUSP Use two sprays in each nostril once daily. 1 11 ??? LISINOPRIL-HYDROCHLOROTHIAZIDE 10-12.5 MG OR TABS 1 TABLET DAILY 30 99 ??? oxyCODONE-acetaminophen (AKA PERCOCET) 5-325 MG tablet Take 1-2 Tabs by mouth every 4 hours as needed for Pain. 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 GEN: He is a 66 yr male. He is awake, alert and comfortable with the examination. well developed, well nourished and in no acute distress HEAD: Normocephalic, atraumatic. EYES: Extraocular movements intact. No exophthalmos. No conjunctival redness or hemorrhage. No nystagmus. ENT: Ears: normal bilateral TM's and external ear canals nose tympanic membrane perforation, no hemotympanum on either side. Nose: Stable nasal bony pyramid. Nasal septal deviation to right, left inferior turbinate hypertrophy, no epistaxis or septal hematomas Mouth: Moist mucus membranes. Lower lip wet mucosa with yellowish white appearance from dental trauma. Tongue is within normal limits. Buccal mucosa, oropharynx, hypopharynx with normal mucosa, no masses or lesions. Majority of the mandibular and maxillary dentition is absent. No mandibular tenderness. No obvious malocclusion of the dentition. Throat: WNL. No blood in post pharynx NECK: supple and no adenopathy CHEST: no wheezing, normal symmetric air entry NEURO: Alert and oriented x 3 and Cranial Nerves II - XII grossly intact. Bilateral symmetrical facial nerve motion bilateral House Brackman scale I/. Musculoskeletal: No palpable frontal bone, nasal bone, periorbital, or maxillary step-offs palpable. STUDIES REVIEWED: IMAGING: HEAD CT AND MIDFACE CT 07/15/2012 INDICATION: [...] mass, intracranial hemorrhage, midline shift or stroke. ASSESSMENT AND PLAN: 1. Facial trauma 2. Multiple facial bone fractures 3. Lip injury Discussed with patient CT scan in detail. He has multiple small fractures that do not require surgical intervention. He is asymptomatic at this time. Patient should avoid blowing the nose for six weeksdue to the nature of the above- described periorbital fractures. Patient given reassurance. Should hebegin to have symptoms of DE SANTIAGO, rhinorrhea, vision changes, he should call. He may perform salt water rinses to help heal lower lip mucosa and subscribe to a soft diet until the area has healed. All questions were answered to his satisfaction. Disposition: Return if symptoms worsen or fail to improve. This note created using speech-recognition software and may contain unintended word substitutions. Bar Alfaro MD 07/23/2012, 5:20 PM UCT SAFETY COORDINATOR documented in this encounter Plan of Treatment Scheduled Referrals Name Type Priority Associated Diagnoses Order S chedule ENT referral from ED Referral Routine Ordered : 07/15/2012 documented as of this encounter Visit Diagnoses Diagnosis Facial trauma - Primary Injury of face and neck Multiple facial bone fractures ([facility]) Closed fractures involving skull or face with other bones, without mention of intracranial injury, unspecified state o f consciousness Lip injury Injury of face and neck documented in this encounter Care Teams Clay Roaster Relationship Specialty Start Date End Date Juan José Michelle MD PCP - General Internal Medicine 07/15/12 documented as of this encounter
--- OUTSIDE RECORDS SUMMARY | 2022-06-20 14:19 | XMS_ITS | Encounter Summary ---
:1945 Author Organization [facility] Address [address] [place] [address] Care Team Providers Name Role Phone Unassigned, Provider Primary Care Provider Unavailable Reason for Visit Reason Comments LEG PAIN--ED sent from [facility] f or U/S of RLE, R/O DVT Encounter Details Date Type Department Care Team Description 12/04/2006 - Emergency [facility] Emergency Dept Fritz Suárez MD Leg Pain 12/05/2006 [address] [facility]. [address] [place] [address] [place] [address] [phone] (Wo rk) Social History Tobacco Use Types Packs/Day Years Used Date Smoking Tobacco: Never Alcohol Use Standard Drinks/Week Comments Not Asked 0 (1 standard drink = 0.6 oz pure alcoho l) Sex Assigned at Date Recorded Not on file documented as of this encounter Last Filed Vital Signs Vital Sign Reading Time Taken Comments Blood Pressure 175/102 12/04/2006 9:54 PM CDT Pulse 68 12/04/2006 9:54 PM CDT Temperature 36.4 ??C (97.6 ??F) 12/04/2006 9:54 PM CDT Respiratory Rate 16 12/04/2006 9:54 PM CDT Oxygen Saturation 96% 12/04/2006 9:54 PM CDT Inhaled Oxygen Concentration - - Weight - - Height - - Body Mass Index - - documented in this encounter Discharge Instructions Discharge Ochoa Perry - 12/05/2006 12:53 AM CDT Dear Mr. Calhoun, Thank you for choosing [facility] for your emergency medical needs. You have received emergency care only and your condition may change. Therefore, we highly recommend you follow-up with your physician as directed. For follow-up care contact: Please follow up with your primary care clinic/provider. For follow-up care, you should be seen within 3-5 days. When you see your doctor, bring your medications and instructions to the office. If you had x-rays,an EKG, or lab tests today, they have been reviewed by your emergency department doctor. We will contact you at once if other important findings are notified after further review of our staff. If you do not continue to improve or if your condition worsens, please call your doctor or the emergency roomright away. I understand that my condition may require more care and will arrange for further treatment as recommended. Your medical provider or nurse discussed with you the following: * Danger signs to watch out for when you got home. * If you were given new medication, we discussed how to take the new medication. * If you were given new medication, we discussed the possible side effects, or referred you to talkto the pharmacist. * If you have any questions or concerns after you leave the ED, then you knew who to call. If you would like to be seen in a Critical access hospital clinic, please call the [facility] Appointment Desk at [phone] anytime between 7:00 AM and 9:00 PM, 7 days a week, 365 days a year (Hearing Impaired: ). Please bring these instructions with you when you are seen in your follow-up appointment. Co-pays for this visit may be paid for at the discharge desk. AttachmentsThe following attachments cannot be sent through Care Everywhere. Muscle Crampsdocumented in this encounter Medications at Time of Discharge Medication Sig Dispensed Refills Start Date End Date LISINOPRIL-HYDROCHLOROTHIA 1 TABLET DAILY 30 99 12/04 ZIDE 10-12.5 MG OR TABSIndications: Elevated blood pressure unknown medication LW Comment:Incomplete 0 2006 Med List LW Addl Instr:does not know name of BP med documented as of this encounter ED Notes Ochoa Hernandez - 12/05/2006 1:07 AM CDT VISIT DATE: 12/04/2006 21:22:00 CHIEF COMPLAINT: Leg pain. HISTORY OF PRESENT ILLNESS: This is a 61-year-old male who comes in by car ambulatory from the [facility]. The patient states that he was at the urgent care there today because he got back from a trip from [place], [place] yesterday after driving a long way and while he was laying at home he developed some left calf pain. The patient states that he had recently got an e-mail from a friend who had developed some blood clots and he thought it sounded a little bit familiar and like his story andhe was worried since he had just been on a long car ride from [place], there and back in the last 4 days. The patient states he has no history of blood clots. The patient denies any chest pain or shortness of breath. The patient thinks that that left ankle is a little bit more swollen than usual but he does not know for sure. He has not noticed any discoloration or bruising in that leg. The patient states that it really has just felt like a charley horse off and on, but he wanted to come in and get c hecked out for sure. The patient was sent from the [facility] over here for an ultrasound to rule out deep vein thrombosis. The patient has not had any other symptoms and has not had pain like this before. He does have hypertension and takes medications for this, but otherwise has been in his normal state of health. REVIEW OF SYSTEMS: Please see EPIC note. PAST MEDICAL HISTORY: Includes hypertension and open angle glaucoma. MEDICATIONS: Active medications is a combo medication lisinopril/hydrochlorothiazide. ALLERGIES: NO KNOWN DRUG ALLERGIES. PHYSICAL EXAM: This is a well-appearing male who is well-developed and in no acute distress. Vital signs: Temperature 97.6, pulse 68, respirations 16, blood pressure 175/102, satting 96% on room air. HEENT: Head is atraumatic. Pupils equal, round, reactive to light. Extraocular movements intact. Neckis supple. Full range of motion. No adenopathy. Chest: Lungs are clear to auscultation bilaterally. No wheezes or rhonchi. Heart is regular rate and rhythm. No murmurs, gallops, or rubs. Abdomen is soft, nontender, nondistended. Positive bowel signs. Extremities: Full range of motion. I do not appreciate any edema. Distal pulses are intact. Neuro: Gait is stable. Speech is clear. EMERGENCY DEPARTMENT COURSE: Patient was evaluated. Did not feel any appreciable edema in either lower extremity and bilateral pedal pulses are intact. The patient does not have any redness or discoloration in that leg. The patient did not have any pain with palpation of his calf. Differential diagnosis high on the list is possible deep vein thrombosis with patient's recent long travel. Other differential includes muscle cramps or muscle strain. Do not feel that patient has a compartment syndrome or any other serious etiology in this leg. As his compartments are soft, he has distal pulses intact and he currently does not have any pain. The patient was sent for Doppler ultrasound of his left lowerextremity which was negative for deep vein thrombosis. At this time, we did not feel that patient needed any further workup as he had no other abnormalities on exam. The patient was told if he continues to have this pain or he develops any swelling or redness in this leg to return immediately. Otherwise, he can use some ibuprofen or Tylenol as needed for the pain. The patient understood this and was discharged home in stable condition. ASSESSMENT: Left calf pain. PLAN: Patient was discharged home in stable condition to use ibuprofen or Tylenol for pain as needed and to return if symptoms worsen. Ochoa Patton MD Staff: Fritz Suárez MD arv Dictated: 12/05/2006 01:07:20 Transcribed: 12/07/2006 12:33:32 Doc #: [id number] cc:Fritz Suárez MD, Attending Physician DR. LUQUE, Primary Physician This document was electronically signed by Ochoa Patton MD on 02/13/2007 10:55:33. 2 Page 2 Patient Name: RUDDY CALHOUN Visit Date: 12/04/2006 21:22:00 EMERGENCY MEDICINE NOTE CONFIDENTIAL MEDICAL RECORD [address] [id number] Page 1 Patient: [facility]UD[id number] Date of : 1945 Age: 61Y Visit Date: 12/04/2006 21:22:00 EMERGENCY MEDICINE NOTE Franky Marie - 12/05/2006 12:57 AM CDT Exam done testing wnl home with family referral and instructions given Franky Marie - 12/05/2006 12:52 AM CDT Back from ultrasound waiting disposition Fritz Suárez - 12/04/2006 11:47 PM CDT [facility] Emergency Department Attending Supervision Note Patient Name: Ruddy Calhoun Date of : 1945 I performed the amado elements of history and exam, and agree with resident's findings and plan of care as discussed with Dr. Ochoa Patton. PMH, FH, SOC, ROS reviewed Please see today's note by resident physician. Assessment: Left calf pain with some associated ankle swelling Recent long travel to/from [place] Sent from urgent care to [facility] for DVT -- US neg for DVT Plan: Imaging: Rad Ultrasound: lower extremity lee doppler Analgesics Ship Unloader patient/family Planned Disposition: home This electronic signature covers the nursing and ancillary testing orders for this visit. Ochoa Hernandez - 12/04/2006 11:29 PM CDT [facility] Emergency Department Visit Note Patient Name: Ruddy Calhoun Date of : 1945 Visit note has been dictated: see dictated note ( ) PMH: No past medical history on file. No past surgical history on file. Meds: Medications the patient reported as taking as of 12/04/2006: LISINOPRIL-HYDROCHLOROTHIAZIDE 10-12.5 MG OR TABS, 1 TABLET DAILY, Disp: 30, Rfl: 99 Allergies: Review of patient's allergies indicates no known allergies. Social and Family History: History Substance Use Topics ??? Tobacco Use: Never ??? Alcohol Use: Not on file No family history on file. Review of Systems: Please see [employer] flowsheet for review of systems. Condition on disposition: Stable This electronic signature covers the nursing and ancillary testing orders for this visit. Franky Marie - 12/04/2006 11:27 PM CDT Male to room 13 pt having slight pain midcalf ERDR to see. Ana Maria Mackey - 12/04/2006 9:22 PM CDT Pt took a long car trip, returned yesterday and noticed left calf cramping last noc after returning.Pt seen at [facility] and referred here for U/S of LE. documented in this encounter Plan of Treatment Not on filedocumented as of this encounter Procedures Procedure Name Priority Date/Time Associated Diagnosis Comme nts VASC MK DOPP Routine 12/05/2006 12:26 AM Resu lts for this LOW EXT - LT CDT procedure are i n the results section. documented in this encounter Results VASC MK DOPP LOW EXT - LT (12/05/2006 12:26 AM CDT) Anatomical Region Laterality Modality Other Specimen (Source) Anatomical Collection Method Collection Time Re ceived Time Location / / Volume Laterality 12/05/2006 12:26 AM CDT Narrative 12/06/2006 4:26 PM CDT dvt: PAIN . LEFT LOWER EXTREMITY VENOUS DUPLEX COMPARISON: ??None. INDICATIONS: ??Left lower extremity pain . FINDINGS: ??Left common femoral vein, tong perficial femoral vein and popliteal vein are fully compressible wi th normal venous flow. Left posterior and anterior tibial veins along with peroneal veins have normal venous flow. IMPRESSION: ??No evidence of deep venous thrombosis. Fritz Suárez MD RAD US/RH documented in this encounter Visit Diagnoses Diagnosis Leg pain Pain in limb documented in this encounter Care Teams Pump Rebuilder Relationship Specialty Start Date End Date Unassigned, Provider PCP - General 10/25/00 07/14/[address] [place] [id number] documented as of this encounter
--- OUTSIDE RECORDS SUMMARY | 2022-06-20 14:19 | XMS_ITS | Encounter Summary ---
:1945 Author Organization [facility] Address [address] [place] [address] Care Team Providers Name Role Phone Juan José Michelle MD Primary Care Provider Reason for Visit Reason Comments Travel Consult Encounter Details Date Type Department Care Team Description 02/13/2015 Initial Consult [facility] [address] A dvice or Infectious Disease END WORKER, THREAD TRIMMER immunization for [address] [facility] [address] travel (Primary Dx) [address] [place] [phone] Social History Tobacco Use Types Packs/Day Years Used Date Smoking Tobacco: Never Alcohol Use Standard Drinks/Week Comments Not Asked 0 (1 standard drink = 0.6 oz pure alcoho l) Sex Assigned at Date Recorded Not on file documented as of this encounter Progress Notes Efrain Silvestre - 02/13/2015 2:05 PM CDT Subjective: Ruddy Calhoun is a 69 y.o. male who presents to the clinic for travel consultation accompanied by spouse,. TRAVEL PLANS Planned departure date: February 17, 2015 Time in developing countries: 10 days. Countries of travel: [place] Areas in country: rural and urban ([facility], [facility], [place] and other areas) Traveling to Malarial area: yes Time in malarial area: 10 days. Reviewed Malarial risk map: yes Prior malarial chemoprophylaxis use: Yes, Malarone and Lariam both. 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 HTN (hypertension) No Known Allergies Current Outpatient Prescriptions on File Prior to Visit Medication Sig Dispense Refill ??? [DISCONTINUED] lisinopril (PRINIVIL, ZESTRIL) 20 mg tablet Take 20 mg by mouth daily (every 24 hours). Indications: HYPERTENSION ??? [DISCONTINUED] mefloquine (LARIAM) 250 mg tablet Take 1 tablet as instructed. Start 2 weeks before, weekly while there and continue 4 weeks after malarial mosquito exposure. 8 tablet 0 ??? op medications reviewed LW Comment:Incomplete Med List LW Addl Instr:does not know name of BP med No current facility-administered medications on file prior to visit. Is the patient ?not applicable ?not applicable Assessment: Contraindications to travel: no Plan: PATIENT EDUCATION Patient was given verbal and/or written information about: Dengue Fever, Diphtheria/Tetanus, Hepatitis A, Hepatitis B, Influenza, Leishmaniasis, Malaria, Pneumonia, Rabies--post-exposure schedule, Schistosomiasis, Sexually Transmitted Diseases, Travax/CDC information, Traveler's Diarrhea, Typhoid, Box Elder ow Fever, Chikungunya. Reviewed vaccine schedule and efficacy. Patient appears to understand all the information provided. The person(s) accompanying the patient appears to understand the information provided. Discussed the use of Pepto Bismol and Imodium (follow package insert) See below for vaccines and medications ordered this visit. Patient had no reaction. Patient declined:Influenza, Zostavax. Also, reports already receiving both pneumonia vaccies (no records to show). FOLLOW UP No labs ordered. No follow-up visit needed. Time spent on travel education Individual or Group counselin minutes. Total appointment time: 60 minutes. IMMUNIZATIONS AND PRESCRIPTIONS Immunization counseling was provided for the vaccines that were administered at the visit Orders Placed This Encounter Procedures ??? Typhoid IM Orders Placed This Encounter Medications ??? azithromycin (ZITHROMAX) 500 mg tablet Sig: Take 1 tablet by mouth daily (every 24 hours) for 3 doses. for severe travelers diarrhea. Dispense: 3 tablet Refill: 0 ??? atovaquone-proguanil (MALARONE) 250-100 mg per tablet Sig: Take 1 tab starting 2 days before malarial mosquito risk, daily while there, and for 7 days after. Dispense: 19 tablet Refill: 0 Immunization History Administered Date(s) Administered ??? Hep A Adult (19+ yrs) 05/14/2000, 04/09/2005 ??? Hep B Adult Vaccine (20+ yrs) 05/14/2000, 06/16/2000 ??? Hepatitis B Virus Vacc Recom/Medic Con 03/30/2001 ??? IPV 05/14/2000 ??? Influenza TIV 0.5ml (36+ mos) 07/16/2006 ??? MPSV4 (Menomune) 06/16/2000, 04/09/2005, 03/27/2012 ??? PV23 03/27/2012 ? ? Td Adult (>7 years) 05/14/2000 ??? Tdap (Adacel) 12/12/2008 ??? Typhoid IM 04/27/2002, 04/09/2005, 02/13/2015 ??? Typhoid PO 12/12/2008 ??? YF-Vax 06/16/2000, 03/27/2012 documented in this encounter Plan of Treatment Not on filedocumented as of this encounter Visit Diagnoses Diagnosis Advice or immunization for travel - Prim jamaal Other specified counseling documented in this encounter Care Teams Mobile Mechanic Relationship Specialty Start Date End Date Juan José Michelle MD PCP - General Internal Medicine 07/15/12 documented as of this encounter
--- OUTSIDE RECORDS SUMMARY | 2022-06-20 14:19 | XMS_ITS | Encounter Summary ---
:1945 Author [facility] Address [address] [place] [address] Care Team Providers Name Role Phone Juan José Michelle MD Primary Care Provider Reason for Visit Procedure/Equipment (Routine) - Closed Specialty Diagnoses / Procedures Referred By Contact Refer red To Contact Procedures Emergency Department XR WRIST AP/OBL/LAT 3 VIEWS [address] [place] [address] Referral ID Status Reason Start Date Expiration Date Visits Requ ested Visits Authorized [id number] Closed 07/15/2012 1 1 Encounter Details Date Type Department Care Team Description 07/15/2012 [facility] [address] [place], [place] [id number] Social History Tobacco Use Types Packs/Day Years Used Date Smoking Tobacco: Never Alcohol Use Standard Drinks/Week Comments Not Asked 0 (1 standard drink = 0.6 oz pure alcoho l) Sex Assigned at Date Recorded Not on file documented as of this encounter Plan of Treatment Not on filedocumented as of this encounter Procedures Procedure Name Priority Date/Time Associated Diagnosis Comme nts XR WRIST LT 3 VIEWS STAT 07/15/2012 12:18 PM R esults for this CDT procedure are i n the results section. documented in this encounter Results XR WRIST AP/OBL/LAT 3 VIEWS LEFT (07/15/2012 [...] carpometacarpal joint. Lupillo Mckeon MD RAD GD documented in this encounter Visit Diagnoses Not on filedocumented in this encounter Care Teams Mgmt Consultant Relationship Specialty Start Date End Date Juan José Michelle MD PCP - General Internal Medicine 07/15/12 documented as of this encounter
--- OUTSIDE RECORDS SUMMARY | 2022-06-20 14:19 | XMS_ITS | Encounter Summary ---
:1945 Author Organization [facility] Address [address] [place] [address] Care Team Providers Name Role Phone Unassigned, Provider Primary Care Provider Unavailable Encounter Details Date Type Department Care Team Description 12/09/2008 PN Conversion Only FORM SETTER SUPERVISOR [address] [place] [address] Social History Tobacco Use Types Packs/Day Years Used Date Smoking Tobacco: Never Alcohol Use Standard Drinks/Week Comments Not Asked 0 (1 standard drink = 0.6 oz pure alcoho l) Sex Assigned at Date Recorded Not on file documented as of this encounter Plan of Treatment Not on filedocumented as of this encounter Visit Diagnoses Not on filedocumented in this encounter Care Teams Tunnel Heading Inspector Relationship Specialty Start Date End Date Unassigned, Provider PCP - General 10/25/00 07/14/12 [address] [place] [address] documented as of this encounter
--- OUTSIDE RECORDS SUMMARY | 2022-06-20 14:19 | XMS_ITS | Encounter Summary ---
:1945 Author Organization [facility] Address [address] [place] [address] Care Team Providers Name Role Phone Juan José Michelle MD Primary Care Provider Reason for Visit Procedure/Equipment (Routine) - Closed Specialty Diagnoses / Procedures Referred By Contact Refer red To Contact Procedures Emergency Department CT HEAD WITHOUT CONTRAST [address] [place] [address] Referral ID Status Reason Start Date Expiration Date Visits Requ ested Visits Authorized [id number] Closed 07/15/2012 1 1 Encounter Details Date Type Department Care Team Description 07/15/[address] [place], [place] [phone] Social History Tobacco Use Types Packs/Day Years Used Date Smoking Tobacco: Never Alcohol Use Standard Drinks/Week Comments Not Asked 0 (1 standard drink = 0.6 oz pure alcoho l) Sex Assigned at Date Recorded Not on file documented as of this encounter Plan of Treatment Not on filedocumented as of this encounter Procedures Procedure Name Priority Date/Time Associated Diagnosis Comme nts CT SPECIAL MIDFACE STAT 07/15/2012 11:52 AM Re sults for this WO IV CONT CDT procedure are i n the results section. CT HEAD WO IV CONT STAT 07/15/2012 11:52 AM Re sults for this CDT procedure are i n the results section. documented in this encounter Results CT SPECIAL MIDFACE (07/15/2012 11:52 AM CDT) Anatomical Region Laterality Modality Head Computed Tomography Specimen (Source) Anatomical Collection Method Collection Time Re ceived Time Location / / Volume Laterality 07/15/2012 11:52 AM CDT Narrative 07/15/2012 2:07 PM CDT [facility] HEAD CT AND MIDFACE CT 07/15/2012 INDICATION: [...] note might be different from the original. [facility] HEAD CT AND MIDFACE CT 07/15/2012 INDICATION: [...] AM CDT Narrative 07/15/2012 2:07 PM CDT [facility] HEAD CT AND MIDFACE CT 07/15/2012 INDICATION: [...] note might be different from the original. [facility] HEAD CT AND MIDFACE CT 07/15/2012 INDICATION: [...] CT documented in this encounter Visit Diagnoses Not on filedocumented in this encounter Care Teams Stonemason Apprentice Relationship Specialty Start Date End Date Juan José Michelle MD PCP - General Internal Medicine 07/15/12 documented as of this encounter
--- OUTSIDE RECORDS SUMMARY | 2022-06-20 14:19 | XMS_ITS | Encounter Summary ---
:1945 Author Organization [facility] Address [address] [place] [address] Care Team Providers Name Role Phone Juan José Michelle MD Primary Care Provider Encounter Details Date Type Department Care Team Description 06/03/2013 Office Visit [facility] Primary open-angle [address] glaucoma(365.11) ([place] [address] Dx) [phone] Social History Tobacco Use Types Packs/Day Years Used Date Smoking Tobacco: Never Alcohol Use Standard Drinks/Week Comments Not Asked 0 (1 standard drink = 0.6 oz pure alcoho l) Sex Assigned at Date Recorded Not on file documented as of this encounter Progress Notes Austin Crawley COA - 06/03/2013 1:07 PM CDT Visual Field 24-[address] Brenner for DX POAG performed by TEAGAN Barahona. No need to call with results - patient seeing provider today. TEAGAN Barahona documented in this encounter Plan of Treatment Not on filedocumented as of this encounter Visit Diagnoses Diagnosis Primary open-angle glaucoma(365.11) - Pr imary Primary open-angle glaucoma documented in this encounter Care Teams Clerical Adjudicator Relationship Specialty Start Date End Date Juan José Michelle MD PCP - General Internal Medicine 07/15/12 documented as of this encounter
--- OUTSIDE RECORDS SUMMARY | 2022-06-20 14:19 | XMS_ITS | Encounter Summary ---
:1945 Author Organization [facility] Address [address] [place] [address] Care Team Providers Name Role Phone Unassigned, Provider Primary Care Provider Unavailable Reason for Visit Reason Comments CONGESTION, SINUS Sore Throat Encounter Details Date Type Department Care Team Description 12/24/2006 Office Visit [facility] Fausto Andersen, Sinus Infection (Primary Dx) ; [address] Sore Throat; [place] [address] HYPERTENSION NOS; [phone] Obesity, Unspec ified Social History Tobacco Use Types Packs/Day Years Used Date Smoking Tobacco: Never Alcohol Use Standard Drinks/Week Comments Not Asked 0 (1 standard drink = 0.6 oz pure alcoho l) Sex Assigned at Date Recorded Not on file documented as of this encounter Last Filed Vital Signs Vital Sign Reading Time Taken Comments Blood Pressure 152/86 12/24/2006 4:00 PM CDT Pulse 104 12/24/2006 4:00 PM CDT Temperature 36.1 ??C (96.9 ??F) 12/24/2006 4:00 PM CDT Respiratory Rate - - Oxygen Saturation - - Inhaled Oxygen Concentration - - Weight 104.2 kg (229 lb 12.8 oz) 12/24/2006 4:00 PM CDT Height 172.7 cm (5' 8) 12/24/2006 4:00 PM CDT Body Mass Index 34.94 12/24/2006 4:00 PM CDT documented in this encounter Progress Notes Fausto Andersen - 12/24/2006 12:00 AM CDT SUBJECTIVE: A 61-year-old man who is in with 2-3 weeks of some sinus pain and pressure, some irritated throat, and postnasal drainage, which is worse at night. It is moderately severe. There has been no purulent sputum production either from his nose or from his chest. He is actually not coughing at all. He is a nonsmoker. It is also noted that he does not get his caregiver and his blood pressure is elevated, and he does have hypertension. He is on Prinzide 10/12.5 mg. He has no headaches, epistaxis, chest pain, shortness of breath, PND, orthopnea or pedal edema. Also, did do a BMI and it is 34.94, so we entered obesity into his problem list. His mother has hypertension. There is no family history of diabetes. Basically right now, all the rest of his entire review of systems is unremarkable. OBJECTIVE: Obese 61-year-old gentleman, in no acute distress. Blood pressure is 152/86, pulse 104, and temp 96.9. HEENT, negative. Neck supple, no adenopathy. Chest, clear to auscultation. No rales, rhonchi or wheezes. COR, S1, S2 normal. Regular rhythm. No murmurs, gallops or rubs. Rapid strep negative. ASSESSMENT: Sinus infection, obesity, and hypertension. PLAN: I suggested that he follow up with his primary care physician. I did recommend today doubling the dose of his present antihypertensive medication, but he wants to follow up with his primary care physician to do that. Also, we will start him on Flonase 2 drops in each nostril daily and amoxicillin 500 mg t.i.d. for 10 days. Problems, hypertension, obesity, and sinus infection. P cc: documented in this encounter Plan of Treatment Not on filedocumented as of this encounter Procedures Procedure Name Priority Date/Time Associated Diagnosis Comme nts STREP GRP A, RAPID Waiting 12/24/2006 4:09 PM Sore Throat Res ults for this SCREEN CDT procedure are i n the results section. documented in this encounter Results STREP GRP A, RAPID SCREEN (12/24/2006 4:09 PM CDT) [facility] Method Time Signature Patient Home None [employer] Phone # Patient Work None [facility] Phone # Grp A Rapid Negative NEG [employer] Screen Grp A Culture Negative NEG [facility] Final Specimen Anatomical Collection Method Collection Time Receive d Time (Source) Location / / Volume Laterality 12/24/2006 4:09 PM 7 4:10 CDT PM CDT Fausto Andersen MD LAB_1 Performing Organization Address City/State/ZIP Code Phon e Number [facility] [phone] [facility] [address] [id number] documented in this encounter Visit Diagnoses Diagnosis Sinus Infection - Primary Sore throat Acute pharyngitis HYPERTENSION NOS Unspecified essential hypertension Obesity, unspecified ([facility]) Obesity, unspecified documented in this encounter Care Teams Axle Inspector Relationship Specialty Start Date End Date Unassigned, Provider PCP - General 10/25/00 07/14/[address] [place] [id number] documented as of this encounter
--- OUTSIDE RECORDS SUMMARY | 2022-06-20 14:19 | XMS_ITS | Encounter Summary ---
:1945 Author Organization [facility] Address [address] [place] [address] Care Team Providers Name Role Phone Juan José Michelle MD Primary Care Provider Encounter Details Date Type Department Care Team Description 08/20/2012 Office Visit [facility] Primary open-angle [address] glaucoma (Primary Dx) [place], [place] [id number] Social History Tobacco Use Types Packs/Day Years Used Date Smoking Tobacco: Never Alcohol Use Standard Drinks/Week Comments Not Asked 0 (1 standard drink = 0.6 oz pure alcoho l) Sex Assigned at Date Recorded Not on file documented as of this encounter Progress Notes Austin Crawley COA - 08/20/2012 10:52 AM CST Visual Field 24-[address] Brenner for DX glaucoma performed by TEAGAN Paige. TEAGAN Paige GER POOL documented in this encounter Plan of Treatment Not on filedocumented as of this encounter Visit Diagnoses Diagnosis Primary open-angle glaucoma(365.11) - Pr imary Primary open-angle glaucoma documented in this encounter Care Teams Groundskeeping Yardman Relationship Specialty Start Date End Date Juan José Michelle MD PCP - General Internal Medicine 07/15/12 documented as of this encounter
--- OUTSIDE RECORDS SUMMARY | 2022-06-20 14:19 | XMS_ITS | Encounter Summary ---
:1945 Author Organization [facility] Address [address] [place] [address] Care Team Providers Name Role Phone Juan José Michelle MD Primary Care Provider Reason for Visit Reason Comments Travel Call Encounter Details Date Type Department Care Team Description 09/20/2015 Telephone [facility] [address] MD Travel Call Clinic [address] [place] [place] [address] [place] [address] [phone] Social History Tobacco Use Types Packs/Day Years Used Date Smoking Tobacco: Never Alcohol Use Standard Drinks/Week Comments Not Asked 0 (1 standard drink = 0.6 oz pure alcoho l) Sex Assigned at Date Recorded Not on file documented as of this encounter Nursing Notes Kesha Silvestre, RASHMI - 09/22/2015 3:57 PM CST Spoke with wifr. [facility] [place] [facility]. Have used Malarone well prev and prefers this rx again. Declined Doxycycline rx option. Is aware they may have to self pay Malarone. Declined antib for severe diarrhea. Vaccines are current.Declined Td update. Gave brief review for food, water and insect precautions. reports Ruddy is now on a water Pill, thinks it is Triamterene but is not sure. Denies kidney function issues.Malarone rx sent to [facility] for #31 tabs per spouse request. AWAY WORKER Kesha Silvestre RN - 09/21/2015 10:59 AM CST left message to call here to verify current medical status before refilling rxs as requested AWAY WORKER Brooklyn Lee RN - 09/21/2015 9:49 AM CST Pts calling and states that she will be traveling back to [facility] with her on 10/02-10/26. Same trip as before. Requesting Rxs for both of them for malaria med/ traveler's diarrhea med. Seen 02/2015. Pharm listed. Pt P) [phone]. AWAY WORKER documented in this encounter Plan of Treatment Not on filedocumented as of this encounter Visit Diagnoses Not on filedocumented in this encounter Care Teams Diesel Mechanic Apprentice Relationship Specialty Start Date End Date Juan José Michelle MD PCP - General Internal Medicine 07/15/12 documented as of this encounter
--- OUTSIDE RECORDS SUMMARY | 2022-06-20 14:19 | XMS_ITS | Encounter Summary ---
:1945 Author Organization [facility] Address [address] [place] [address] Care Team Providers Name Role Phone Unassigned, Provider Primary Care Provider Unavailable Reason for Visit Reason Comments Travel Consult Encounter Details Date Type Department Care Team Description 03/27/2012 Initial Consult [facility] Travel Odalis Willis or Clinic C, MJ, [place] [id number] [employer] [address] [place] [address] travel (Primary Dx) [place] [address] [facility] [phone] [place] [address] Social History Tobacco Use Types Packs/Day Years Used Date Smoking Tobacco: Never Alcohol Use Standard Drinks/Week Comments Not Asked 0 (1 standard drink = 0.6 oz pure alcoho l) Sex Assigned at Date Recorded Not on file documented as of this encounter Progress Notes Odalis Willis APRN, SARA - 03/27/2012 2:53 PM CDT Travel Clinic Initial Visit Patient is seen in Travel Clinic accompanied by spouse, for travel education and counseling. Barrier(s) to care: None. TRAVEL PLANS Patient states they are planning to travel to: [facility] Plans include travel to and/or lodging at: rural areas, urban areas High Risk Areas: Patient is traveling to Yellow Fever risk area. Patient is traveling to Malaria risk area for 12 days. Reviewed a Malaria risk map with the patient and they were given a copy. Departure Date: 05/02/2012 Estimated Length of Stay: 12 days. 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 HEALTH HISTORY Medications: Reviewed and updated today in the Medication section of the patients electronic medicalrecord. Previous Health History: Problem List in electronic medical record was reviewed. No additional problems relevant to travel were identified. PATIENT EDUCATION Patient was given verbal and/or written information about: Diphtheria/Tetanus, Hepatitis A, Hepatitis B, HIV, Malaria, Meningitis, Polio, Rabies--post-exposure protocol, Travax/CDC information, Traveler's Diarrhea, Typhoid, Yellow Fever, Reviewed vaccine schedule and efficacy. Patient was also provided information about health care and insurance information while traveling abroad. Patient appears to understand all the information provided. IMMUNIZATIONS Routine vaccines are current for age per records provided. Reaction to Vaccine: Patient had no reaction. Orders Placed This Encounter Procedure ??? MPSV4 (Menomune) ??? PPSV (Pneumovax) ??? Yellow Fever PRESCRIPTIONS Reviewed medication options for itinerary. Risks, benefits and side effects were discussed. The following prescriptions/OTC medications were given: Lariam. (Patient reports they have used Lariam in the past and tolerated it well.) Cipro. Imodium. (Patient was instructed to follow package directions for Imodium dose.) Pepto Bismol. (Patient was instructed to follow package directions for Pepto Bismol dose.) PLAN Laboratory Studies: No labs ordered. Return To Clinic: No follow-up visit needed. Time spent in group counselin minutes. *SH~TRAVEL~INT ~Shorthand Note completed on: 03/27/2012 2:52 PM documented in this encounter Plan of Treatment Not on filedocumented as of this encounter Visit Diagnoses Diagnosis Advice or immunization for travel - Prim jamaal Other specified counseling documented in this encounter Care Teams Psychology Tech Relationship Specialty Start Date End Date Unassigned, Provider PCP - General 10/25/00 07/14/[address] [place] [id number] documented as of this encounter
--- OUTSIDE RECORDS SUMMARY | 2022-06-20 14:20 | XMS_ITS | Encounter Summary ---
:1945 Author Organization [facility] Address [address] [place] [address] Care Team Providers Name Role Phone Unassigned, Provider Primary Care Provider Unavailable Encounter Details Date Type Department Care Team Description 12/04/2006 Correspondence Emergency Dept Emergency, [facility] D/C PATIENT [address] [facility] [place] [address] Social History Tobacco Use Types Packs/Day Years Used Date Smoking Tobacco: Never Alcohol Use Standard Drinks/Week Comments Not Asked 0 (1 standard drink = 0.6 oz pure alcoho l) Sex Assigned at Date Recorded Not on file documented as of this encounter Progress Notes Emergency, Provider - 12/04/2006 12:00 AM CDT documented in this encounter Plan of Treatment Not on filedocumented as of this encounter Visit Diagnoses Not on filedocumented in this encounter Care Teams Gunner'S Mate G Relationship Specialty Start Date End Date Unassigned, Provider PCP - General 10/25/00 07/14/12 [address] [place] [address] documented as of this encounter
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
--- OUTSIDE RECORDS SUMMARY | 2022-06-20 14:20 | XMS_ITS | Encounter Summary ---
:1945 Author Organization [facility] Address [address] [place] [address] Care Team Providers Name Role Phone Unassigned, Provider Primary Care Provider Unavailable Reason for Visit Reason Comments SHOT,FLU Encounter Details Date Type Department Care Team Description 08/28/2005 Office Visit [facility] VACCINE FOR INFLUENZA [address] [place], [place] [phone] Social History Tobacco Use Types Packs/Day Years Used Date Smoking Tobacco: Former Alcohol Use Standard Drinks/Week Comments Not Asked 0 (1 standard drink = 0.6 oz pure alcoho l) Sex Assigned at Date Recorded Not on file documented as of this encounter Progress Notes 08/28/2005 10:30 AM WIRE ROPE SALES REPRESENTATIVE S: Ruddy Calhoun is a 59 yr old male here for a flu shot. Severe allergy to eggs: no Previous severe reaction to thimerosal : no History of paralysis with Guillian Padroni: no Ill appearing with increased respiratory rate, moderate fever (>101.0 F), and increased heart rate: no History of bleeding problem: no Severe allergy to latex *: no (If YES to any of the above, consult MD) * The contraindication does not apply to children receiving [employer] Fluzone Preservative Free Pediatric dose O: Temp (only if ill today): A: Eligible for flu vaccine today: YES P: Administer vaccine: Education: discussed possible side effects and provided health education materials. Thaddeus Leiva LPN 08/28/2005 10:39 AM documented in this encounter Plan of Treatment Not on filedocumented as of this encounter Visit Diagnoses Diagnosis Need for prophylactic vaccination and in oculation against influenza documented in this encounter Care Teams Primary Special Educator Relationship Specialty Start Date End Date Unassigned, Provider PCP - General 10/25/00 07/14/[address] [place] [address] documented as of this encounter
--- OUTSIDE RECORDS SUMMARY | 2022-06-20 14:20 | XMS_ITS | Encounter Summary ---
:1945 Author Organization [facility] Address [address] [place] [address] Care Team Providers Name Role Phone Unassigned, Provider Primary Care Provider Unavailable Reason for Visit Reason Comments PAIN, NOS lf thumb--intermittent--2 w ks Encounter Details Date Type Department Care Team Description 03/19/2006 Office Visit [facility] Sharonda Johnson PAIN IN LIMB (Primary [address] MD Damaris Dx) [place] [address] [address] [phone] [place] [address] Social History Tobacco Use Types Packs/Day Years [...] - Inhaled Oxygen Concentration - - Weight 102.5 kg (226 lb) 03/19/2006 2:40 PM CDT Height 175.3 cm (5' 9) 03/19/2006 2:40 PM CDT Body Mass Index 33.37 03/19/2006 2:40 PM CDT documented in this encounter Patient Instructions Patient Tlzixfsohnxk80/05/2006 2:40 PM CDT go to lab for blood work for gout test TODAY ice thumb area 3-4x/day for 1 week ibuprofen 3 200mg tablets (600mg) 3 times daily with food for 1-3 weeks wear thumb spica splint when having pain documented in this encounter Progress Notes 03/19/2006 2:40 PM CDT SUBJECTIVE: Ruddy Calhoun is a 60 yr right-handed male who has had left hand pain 2 weeks. Mechanism of injury: none. Immediate symptoms: immediate pain, delayed swelling. Symptoms have been unchanged, waxing and waning since that time. Prior history of related problems: no prior problems with this area in the past. FHx - gout F, reacts to asparagus, pt has eaten that recently, had increased swelling since? Had BP med change recently - off Atenolol, on a green pill per [place] , pt will bring in records OBJECTIVE: Ht 5' 9 (1.75m) Wt 226 lbs (102.5kg) Appearance: in no apparent distress and well developed and well nourished. Hand exam: soft tissue tenderness and swelling at the 1st CMC jt and radial prox 1st MC, radial pulse normal, sensation normal, remainder of ipsilateral wrist, hand and finger exam is normal, normal contralateral hand and wrist. finkelsteins test equivocal , pain at CMC jt and over prox 1st MC My independent review of patient's xrays reveals: min DJD CMC jt, pending review by Radiologist. ASSESSMENT: hand swelling, possible gout PLAN: rest the injured area as much as practical, apply ice packs, splint dispensed and applied, X-Ray ordered See orders. Info given on gout and diet If new pill is diuretic then this could be gout, contributed to by that, get records from [place]. FU 1-4 wks. prn. documented in this encounter Procedure Notes Yoni Cochran - 03/19/2006 12:00 AM CDTAssociated Order(s): HAND 3 VIEWS (STANDARD) CLINICAL DATA: Indication: Pain and swelling first CMC joint and first metacarpal. Soft tissue swelling, gout versus DJD. EXAMINATION: LEFT HAND 03/19/2006: FINDINGS: Early degenerative arthritic changes in the first CMC joint. No erosion. No evidence to suspect gouty arthritis. Left hand is otherwise normal. CONCLUSION: Early DJD first CMC joint. Harshil Russell MD A cc: Sharonda Johnson MD Radiology CO documented in this encounter Plan of Treatment Not on filedocumented as of this encounter Procedures Procedure Name Priority Date/Time Associated Diagnosis Comme nts COMPLETE BLOOD Routine 03/19/2006 4:00 PM Pain In Limb Results for this COUNT-NO DIFF CDT procedure are in the results section. URIC ACID Routine 03/19/2006 4:00 PM Pain In Limb Results f or this CDT procedure are i n the results section. ESR Routine 03/19/2006 4:00 PM Pain In Limb Results f or this CDT procedure are i n the results section. RADEX HAND MINIMUM Routine 03/19/2006 Pain In Limb Results f or this 3 VIEWS procedure are i n the results section. documented in this encounter Results ESR (03/19/2006 4:00 PM CDT) P athologist Signature ESR 14 0 - 15 [facility] mm/hr Specimen Anatomical Collection Method Collection Time Receive d Time (Source) Location / / Volume Laterality 03/19/2006 4:00 PM 6 4:01 CDT PM CDT Sharonda Johnson MD LAB_1 Performing Organization Address City/State/ZIP Code Phon e Number [facility] [phone] [facility] [address] [phone] HEMOGRAM/PLTS (03/19/2006 4:00 PM CDT) athologist Signature WBC 10.1 4.0 - 11.0 [facility] k/ul RBC 4.85 4.5 - 5.9 [facility] M/ul Hemoglobin 14.9 13.5 - 17.5 [facility] g/dl HCT 43.1 41.0 - 53.0 [facility] % MCV 88.8 80 - 100 fl [facility] MCH 30.7 26 - 34 pg [facility] 34.6 32 - 36 % [facility] RDW 14.4 11.5 - 14.5 [facility] % Platelets 240 150 - 450 [facility] k/ul Specimen Anatomical Collection Method Collection Time Receive d Time (Source) Location / / Volume Laterality 03/19/2006 4:00 PM 6 4:01 CDT PM CDT Sharonda Johnson MD LAB_1 Performing Organization Address City/[facility]/ZIP [facility] [place] [facility] [phone] [phone] URIC ACID (03/19/2006 4:00 PM CDT) athologist Signature Uric Acid 8.4 4.3 - 8.7 [facility] mg/dl Specimen Anatomical Collection Method Collection Time Receive d Time (Source) Location / / Volume Laterality 03/19/2006 4:00 PM 6 4:01 CDT PM CDT Sharonda Johnson MD LAB_1 Performing Organization Address City/[facility] Phon e Number [facility] [phone] [phone] Hand 3 views (03/19/2006) Anatomical Region Laterality Modality Other Transcriptions Yoni Cochran - 03/19/2006 12:00 AM C DTCLINICAL DATA: Indication: Pain and swelling first CMC joint and first metacarpal. Soft tissue swelling, gout v ersus DJD. EXAMINATION: LEFT HAND 03/19/2006: FINDINGS: Early degenerative arthritic c hanges in the first CMC joint. No erosion. No evidence to suspect gouty ar thritis. Left hand is otherwise normal. CONCLUSION: Early DJD first CMC joint. Harshil Russell MD A cc: Sharonda Johnson MD Radiology CO Sharonda Johnson MD RAD_1 documented in this encounter Visit Diagnoses Diagnosis Pain in limb - Primary documented in this encounter Care Teams Dice Spotter Relationship Specialty Start Date End Date Unassigned, Provider PCP - General 10/25/00 07/14/[address] [place] [address] documented as of this encounter
--- OUTSIDE RECORDS SUMMARY | 2022-06-20 14:20 | XMS_ITS | Encounter Summary ---
:1945 Author Organization [facility] Address [address] [place] [address] Care Team Providers Name Role Phone Unassigned, Provider Primary Care Provider Unavailable Encounter Details Date Type Department Care Team Description 06/16/2000 PN Conversion Only [facility] [address] [facility] Jan Stock MD [address] [facility] [place] [address] [phone] Social History Tobacco Use Types Packs/Day Years Used Date Smoking Tobacco: Never Assessed Sex Assigned at Date Recorded Not on file documented as of this encounter Plan of Treatment Not on filedocumented as of this encounter Visit Diagnoses Not on filedocumented in this encounter Care Teams Cartoon Artist Relationship Specialty Start Date End Date Unassigned, Provider PCP - General 10/25/00 07/14/12 [address] [place] [address] documented as of this encounter
--- OUTSIDE RECORDS SUMMARY | 2022-06-20 14:20 | XMS_ITS | Encounter Summary ---
:1945 Author Organization [facility] Address [address] [place] [address] Care Team Providers Name Role Phone Unassigned, Provider Primary Care Provider Unavailable Reason for Visit Reason Onset Date Comments LEG PAIN 12/04/2006 Encounter Details Date Type Department Care Team Description 12/04/2006 Telephone Careline Edwardo Watson LEG PAIN [address] [place], [place] [address] Social History Tobacco Use Types Packs/Day Years Used Date Smoking Tobacco: Never Alcohol Use Standard Drinks/Week Comments Not Asked 0 (1 standard drink = 0.6 oz pure alcoho l) Sex Assigned at Date Recorded Not on file documented as of this encounter Nursing Notes Edwardo Watson - 12/04/2006 7:38 PM CDT Trip to [facility] in the car. Left calf cramp. Still feeling like a cramp. No swelling. TRIAGE REFERENCE: LEG PAIN - CNG ADULT CNG (c) 2004 STAT SYMPTOMS: None per guideline Location: left calf, onset: Ongoing For 24 hours, but cramping just stopped a little while ago. Tenderness: No Warmth: No Trauma: No CMS and color is WNL: Yes Ankle swelling: No Predisposing factors: Varicose veins Accompanying symptoms (fever, SOB, chest pain): No Weight 215 PMH: high blood pressure CURRENT MEDICATIONS: Yes: No current outpatient prescriptions on file. On blood pressure medications MEDICATION ALLERGIES: No HOME TREATMENT: Bed rest Elevate (above heart) Warm moist packs (warm wet towels covered with plastic wrap or heating pad - avoid burning) No massaging of area PLAN: What clinic have you established care with?[facility] eval Edwardo Watson RN documented in this encounter Plan of Treatment Not on filedocumented as of this encounter Visit Diagnoses Not on filedocumented in this encounter Care Teams First Grade Teacher Relationship Specialty Start Date End Date Unassigned, Provider PCP - General 10/25/00 07/14/[address] [place] [address] documented as of this encounter
--- OUTSIDE RECORDS SUMMARY | 2022-06-20 14:20 | XMS_ITS | Encounter Summary ---
:1945 Author Organization [facility] Address [address] [place] [address] Care Team Providers Name Role Phone Unassigned, Provider Primary Care Provider Unavailable Encounter Details Date Type Department Care Team Description 04/21/2004 Correspondence None Unknown, Physici an consent to release [address] [place], [place] [address] (Wo rk) Social History Tobacco Use Types Packs/Day Years Used Date Smoking Tobacco: Never Assessed Sex Assigned at Date Recorded Not on file documented as of this encounter Progress Notes Unknown, Physician - 04/21/2004 12:00 AM CDT documented in this encounter Plan of Treatment Not on filedocumented as of this encounter Visit Diagnoses Not on filedocumented in this encounter Care Teams Scroll Machine Operator Relationship Specialty Start Date End Date Unassigned, Provider PCP - General 10/25/00 07/14/12 [address] [place] [address] documented as of this encounter
--- OUTSIDE RECORDS SUMMARY | 2022-06-20 14:20 | XMS_ITS | Encounter Summary ---
:1945 Author Organization [facility] Address [address] [place] [address] Care Team Providers Name Role Phone Unassigned, Provider Primary Care Provider Unavailable Encounter Details Date Type Department Care Team Description 04/09/2005 Office Visit [facility] [address] [address] [place] [address] [place], [place] [phone] Social History Tobacco Use Types Packs/Day Years Used Date Smoking Tobacco: Former Alcohol Use Standard Drinks/Week Comments Not Asked 0 (1 standard drink = 0.6 oz pure alcoho l) Sex Assigned at Date Recorded Not on file documented as of this encounter Progress Notes Abbi Shaver RN - 04/09/2005 12:01 AM CDT Progress Notes signed by Abbi Shaver RN at 04/09/05 1440 Author: Abbi Shaver RN Service: (none) Author Type: Registered Nurse Filed: 04/09/05 0000 Note Time: 04/09/05 0001 Status: Signed Research Neuropsychologist: Abbi Shaver RN (Registered Nurse) Travel Clinic Initial Visit Patient is seen in Travel Clinic individually for travel education and counseling. TRAVEL PLANS Patient states they are planning to travel to: [facility], [place] and rural. Plans include travel to and/or lodging at: rural areas, urban areas High Risk Areas: Patient is traveling to yellow fever risk area. Patient is traveling to malaria risk area for 10 days. Reviewed a malaria risk map with the patient and they were given a copy. Departure Date: 04/13/2005 Estimated Length of Stay: 10 days. 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 HEALTH HISTORY Medications: Reviewed and updated today on Health Profile in Last[employer]. Previous Health History: Patient reports a history of hypertension. PATIENT EDUCATION Patient was given verbal and/or written information about: marlene influenza, dengue fever, diphtheria/tetanus, hepatitis A, hepatitis B, HIV, influenza, leishmaniasis, malaria, rabies--pre-exposure schedule, SARS, schistosomiasis, seafood poisoning, travax/CDC information, traveler's diarrhea, tuberculosis, typhoid, yellow fever, Reviewed vaccine schedule and efficacy. Patient was also provided information about health care and insurance information while traveling abroad. Patient appears to understand all the information given. IMMUNIZATIONS See immunization module on PHP for current immunizations. hepatitis A #2, menomune, typhim Vi, Reaction to Vaccine: Patient had no reaction. PRESCRIPTIONS Reviewed medication options for itinerary. Risks, benefits and side effects were discussed. The following prescriptions/OTC medications were given: malarone. cipro. imodium. (Patient was instructed to follow package directions for imodium dose.) pepto bismol. (Patient was instructed to follow package directions for pepto bismol dose.) Patient educational information regarding these prescribed medications was provided. PLAN Laboratory Studies: No labs ordered. Return To Clinic: No follow-up visit needed. 5 minutes spent counseling/educating patient. *SH~TRAVEL~INT ~Shorthand Note completed on: 04/09/2005 2:43 PM documented in this encounter Plan of Treatment Not on filedocumented as of this encounter Visit Diagnoses Not on filedocumented in this encounter Care Teams Administrative Underwriter Relationship Specialty Start Date End Date Unassigned, Provider PCP - General 10/25/00 07/14/[address] [place] [address] documented as of this encounter
--- OUTSIDE RECORDS SUMMARY | 2022-06-20 14:20 | XMS_ITS | Encounter Summary ---
:1945 Author [facility] Address [address] [place] [address] Care Team Providers Name Role Phone Unassigned, Provider Primary Care Provider Unavailable Encounter Details Date Type Department Care Team Description 04/21/2004 Office Visit [facility] ACUTE APICAL PERIODONTITIS; [address] [facility] [address] S[address]; [place], [place] [address] HYPERTENSION NOS [phone] Social History Tobacco Use Types Packs/Day Years Used Date Smoking Tobacco: Never Assessed Sex Assigned at Date Recorded Not on file documented as of this encounter Last Filed Vital Signs Vital Sign Reading Time Taken Comments Blood Pressure 156/102 04/21/2004 10:30 AM CDT Pulse 68 04/21/2004 10:30 AM CDT Temperature 37.1 ??C (98.7 ??F) 04/21/2004 10:30 AM CDT Respiratory Rate 12 04/21/2004 10:30 AM CDT Oxygen Saturation - - Inhaled Oxygen Concentration - - Weight - - Height - - Body Mass Index - - documented in this encounter Progress Notes 04/21/2004 10:30 AM CDT Room # 47 Rooming time: 10:38 AM Ruddy Calhoun is here today for swollen tongue and mild jaw pain R/T abcessed molar. Accompanied by patient. History is obtained from patient. O2 Sat.: not done. Peak Flow: not done. AccuCheck: not done. Weight taken with patient clothed? not done. Temperature source: ORAL. Pulse source: radial B/P was : taken on the right arm. B/P cuff size:Regular. Tobacco Status reviewed? (see History Social-Substance) -NO Lives in a smoking environment : NO. Vision checked: not done, performed and documented in nurse's note. and not performed. Last Tetanus: unknown. Immunizations up to date: NO. In the past year, have you been physically or emotionally mistreated by someone important to you? -NOT ASKED dentist attendant offered -NOT APPLICABLE. Health Education given -NO. Primary provider: Provider Unassigned, Physician Contact phone number [phone] (home) [phone] (work) Alternate phone number N/A Fausto Mahajan LPN 04/21/2004 10:38 AM Ricky Danielle 04/21/2004 12:00 AM CDTCHIEF COMPLAINT: Swollen tongue. SUBJECTIVE: This is a 58-year-old with hypertension on Hydrochlorothiazide and Atenolol. Has no drug allergies. He has had for the past 2 or 3 days some swelling on the floor of his mouth under his tongue with some discomfort in his jaw as well as pain related to a cracked mandibular tooth on the left side. This morning when he awoke his tongue felt swollen to him, he couldn't move it, it has subsequently resolved. He has no new medications. No history of allergies. Did eat some chocolate before he went to bed last night. Has no sores or pain on the tongue itself. OBJECTIVE: Blood pressure initially was 152/102, subsequently 130/90. Temperature 98.7. Respirations 12. Pulse 68. The neck is supple. There is no adenopathy; however, both submandibular salivary glands are slightly tender and full. On the floor of his mouth there is marked enlargement of both of the submandibular salivary glands with an area of thick white mucosa near their tips. I cannot palpate a duct stone in either gland. The tongue itself does not appear to be enlarged. There are no ulcers. There is normal motor activity to the tongue. On the mandibular left side there is a bicuspid that has been partially capped and is cracked and carious appearing with some tenderness of the surrounding gum. ASSESSMENT: 1. Dental infection. 2. Sialadenitis. 3. Hypertension. PLAN: Patient will see an oral surgeon on Friday it is hoped. He has been trying to get an appointment. In the meantime I am going to start him on Clindamycin both for the dental infection and the possibility of blocked salivary ducts and staph infection of the submandibular glands. 11:08 A cc: documented in this encounter Plan of Treatment Not on filedocumented as of this encounter Visit Diagnoses Diagnosis Acute apical periodontitis of pulpal dione gin Sialoadenitis Unspecified essential hypertension (HRC) Unspecified essential hypertension documented in this encounter Care Teams Core Cutter Relationship Specialty Start Date End Date Unassigned, Provider PCP - General 10/25/00 07/14/[address] [place] [address] documented as of this encounter
--- OUTSIDE RECORDS SUMMARY | 2022-06-20 14:20 | XMS_ITS | Encounter Summary ---
:1945 Author [facility] Address [address] [place] [address] Care Team Providers Name Role Phone Unassigned, Provider Primary Care Provider Unavailable Reason for Visit Reason Comments HEADACHE runny nose, R ear slightly p ainful and feels plugged. Encounter Details Date Type Department Care Team Description 06/08/2004 Office Visit [facility] Juan José Hdz, OTITIS MEDIA NOS [address] [facility]. JC (Primary Dx) [place] [address] [facility] [phone] [address] [place], [place] [id number] Social History Tobacco Use Types Packs/Day Years Used Date Smoking Tobacco: Former Alcohol Use Standard Drinks/Week Comments Not Asked 0 (1 standard drink = 0.6 oz pure alcoho l) Sex Assigned at Date Recorded Not on file documented as of this encounter Last Filed Vital Signs Vital Sign Reading Time Taken Comments Blood Pressure 124/80 06/08/2004 3:39 PM CDT Pulse 68 06/08/2004 3:39 PM CDT Temperature 36.3 ??C (97.3 ??F) 06/08/2004 3:39 PM CDT Respiratory Rate 12 06/08/2004 3:39 PM CDT Oxygen Saturation - - Inhaled Oxygen Concentration - - Weight - - Height - - Body Mass Index - - documented in this encounter Progress Notes 06/08/2004 3:40 PM CDT S: right ear painX 3 days. O: red right TM, canal sl red as well. pahrynx ok neck ok. A: ROM P: amox 500mg, tid X 10D, rtc next friday before leaving for [place]. WILBERT Rebolledo documented in this encounter Plan of Treatment Not on filedocumented as of this encounter Visit Diagnoses Diagnosis Unspecified otitis media - Primary documented in this encounter Care Teams Chief Nurse Relationship Specialty Start Date End Date Unassigned, Provider PCP - General 10/25/00 07/14/[address] [place] [phone] documented as of this encounter
--- OUTSIDE RECORDS SUMMARY | 2022-06-20 14:20 | XMS_ITS | Encounter Summary ---
:1945 Author Organization [facility] Address [address] [place] [address] Care Team Providers Name Role Phone Unassigned, Provider Primary Care Provider Unavailable Reason for Visit Reason Comments Other Encounter Details Date Type Department Care Team Description 02/19/[address] Xiao Rushing Other [facility] [place], [place] [address] Social History Tobacco Use Types Packs/Day Years Used Date Smoking Tobacco: Former Alcohol Use Standard Drinks/Week Comments Not Asked 0 (1 standard drink = 0.6 oz pure alcoho l) Sex Assigned at Date Recorded Not on file documented as of this encounter Progress Notes Xiao Rushing - 02/19/2006 1:13 PM CDT Phone Note filed by Xiao Rushing RN at 01/01/110 Author: Xiao Rushing RN Service: (none) Author Type: (none) Filed: 01/01/110 Note Time: 02/19/063 Status: Signed Cosmetic Account Coordinator: Irma Sanz Called patient to let him know that updated yellow vaccine book and it its ready for pickup as he requested to include YF lot #. He will come by today or tomorrow. Created on 19Feb2006 1:13pm by XIAO RUSHING ONNEL MONITOR documented in this encounter Plan of Treatment Not on filedocumented as of this encounter Visit Diagnoses Not on filedocumented in this encounter Care Teams Cooker Syrup Relationship Specialty Start Date End Date Unassigned, Provider PCP - General 10/25/00 07/14/[address] [place] [address] documented as of this encounter
--- OUTSIDE RECORDS SUMMARY | 2022-06-20 14:20 | XMS_ITS | Encounter Summary ---
:1945 Author Organization [facility] Address [address] [place] [address] Care Team Providers Name Role Phone Unassigned, Provider Primary Care Provider Unavailable Reason for Visit Reason Comments SHOT,FLU Encounter Details Date Type Department Care Team Description 09/13/2004 Office Visit [facility] VACC[facility] FOR INFLUENZA [address] [place] [address] Social History Tobacco Use Types Packs/Day Years Used Date Smoking Tobacco: Former Alcohol Use Standard Drinks/Week Comments Not Asked 0 (1 standard drink = 0.6 oz pure alcoho l) Sex Assigned at Date Recorded Not on file documented as of this encounter Progress Notes 09/13/2004 4:15 PM WELDING FOREMAN SUBJECTIVE: Severe allergy to eggs: no Previous severe reaction to thimerosal : no History of paralysis with Guillian [place]: no Ill appearing with increased respiratory rate, moderate fever (>101.0 F), and increased heart rate: no History of bleeding problem: no Severe allergy to latex *: no (If YES to any of the above, consult MD) * The contraindication does not apply to children receiving [employer] Fluzone Preservative Free Pediatric dose OBJECTIVE: Temp (only if ill today): ASSESSMENT: Eligible for flu vaccine today: YES PLAN: Administer vaccine: Education: discussed possible side effects and provided health education materials. Nely Hinton LPN 09/13/2004 4:39 PM documented in this encounter Plan of Treatment Not on filedocumented as of this encounter Visit Diagnoses Diagnosis Need for prophylactic vaccination and in oculation against influenza documented in this encounter Care Teams Handbag Finisher Relationship Specialty Start Date End Date Unassigned, Provider PCP - General 10/25/00 07/14/[address] [place] [id number] documented as of this encounter
--- OUTSIDE RECORDS SUMMARY | 2022-06-20 14:20 | XMS_ITS | Encounter Summary ---
:1945 Author Organization [facility] Address [address] [place] [address] Care Team Providers Name Role Phone Unassigned, Provider Primary Care Provider Unavailable Encounter Details Date Type Department Care Team Description 11/27/2006 Office Visit [facility] [address] [facility] [facility] Clinic [address] [place] [address] [place], [place] [phone] Social History Tobacco Use Types Packs/Day Years Used Date Smoking Tobacco: Never Alcohol Use Standard Drinks/Week Comments Not Asked 0 (1 standard drink = 0.6 oz pure alcoho l) Sex Assigned at Date Recorded Not on file documented as of this encounter Progress Notes Madelaine Santiago - 11/27/2006 12:01 AM CDT Progress Notes signed by Madelaine Santiago RN at 11/27/06 1047 Author: Madelaine Santiago RN Service: (none) Author Type: Registered Nurse Filed: 11/27/06 0000 Note Time: 11/27/06 0001 Status: Signed Pillowcase Maker: Madelaine Santiago RN (Registered Nurse) Travel Clinic Initial Visit Patient is seen in Travel Clinic individually for travel education and counseling. TRAVEL PLANS Patient states they are planning to travel to: [place], [place], [place] Plans include travel to and/or lodging at: rural areas, urban areas, unsure of exact location High Risk Areas: Patient is traveling to Yellow Fever risk area. Patient is traveling to Malaria risk area for up to 21 days. Reviewed a Malaria risk map with the patient and they were given a copy. Departure Date: 12/04/2006 Estimated Length of Stay: up to 21 days. 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 Medications are listed on the Travel Consult form, which was scanned into the electronic medical record. Previous Health History: Patient reports a history of Hypertension, PATIENT EDUCATION Patient was given verbal and/or written information about: Dengue Fever, Diphtheria/Tetanus, Hepatitis A, Hepatitis B, HIV, Influenza, Leishmaniasis, Malaria, Polio, Rabies--post-exposure protocol, Schistosomiasis, Sexually Transmitted Diseases, Travax/CDC information, Traveler's Diarrhea, Typhoid, Yellow Fever, Reviewed vaccine schedule and efficacy. Patient was also provided information about health care and insurance information while traveling abroad. Patient appears to understand all the information provided. IMMUNIZATIONS See immunization module on PHP for current immunizations. No immunizations needed based on patient history and travel plans. PRESCRIPTIONS Reviewed medication options for itinerary. Risks, benefits and side effects were discussed. The following prescriptions/OTC medications were given: Malarone. (Patient reports they have used Malarone in the past and tolerated it well.) Declines antibiotic. Imodium. (Patient was instructed to follow package directions for Imodium dose.) Pepto Bismol. (Patient was instructed to follow package directions for Pepto Bismol dose.) Patient educational information regarding these prescribed medications was provided. PLAN Laboratory Studies: No labs ordered. Return To Clinic: No follow-up visit needed. Time spent in individual counselin minutes. *SH~TRAVEL~INT ~[place] Note completed on: 11/27/2006 10:46 AM documented in this encounter Plan of Treatment Not on filedocumented as of this encounter Visit Diagnoses Not on filedocumented in this encounter Care Teams Panel Sewer Relationship Specialty Start Date End Date Unassigned, Provider PCP - General 10/25/00 07/14/[address] [place] [address] documented as of this encounter
--- OUTSIDE RECORDS SUMMARY | 2022-06-20 14:20 | XMS_ITS | Encounter Summary ---
:1945 Author Organization [facility] Address [address] [place] [address] Care Team Providers Name Role Phone Unassigned, Provider Primary Care Provider Unavailable Encounter Details Date Type Department Care Team Description 12/04/2006 Correspondence None [facility] CONSE NT/RELEASE Social History Tobacco Use Types Packs/Day Years Used Date Smoking Tobacco: Never Alcohol Use Standard Drinks/Week Comments Not Asked 0 (1 standard drink = 0.6 oz pure alcoho l) Sex Assigned at Date Recorded Not on file documented as of this encounter Progress Notes [facility] BRYANT, PROVIDER - 12/04/2006 12:00 AM CDT documented in this encounter Plan of Treatment Not on filedocumented as of this encounter Visit Diagnoses Not on filedocumented in this encounter Care Teams Instructional Resource Teacher Relationship Specialty Start Date End Date Unassigned, Provider PCP - General 10/25/00 07/14/[address] [place] [id number] documented as of this encounter
--- OUTSIDE RECORDS SUMMARY | 2022-06-20 14:20 | XMS_ITS | Encounter Summary ---
:1945 Author Organization [facility] Address [address] [place] [address] Care Team Providers Name Role Phone Unassigned, Provider Primary Care Provider Unavailable Reason for Visit Reason Onset Date Comments SWELLING, TONGUE 04/21/2004 Encounter Details Date Type Department Care Team Description 04/21/2004 Telephone Careline Evie Aldridge RN SWELLING, TONGUE [address] [place], [place] [address] Social History Tobacco Use Types Packs/Day Years Used Date Smoking Tobacco: Never Assessed Sex Assigned at Date Recorded Not on file documented as of this encounter Nursing Notes 04/21/2004 11:59 PM CDT >> EVIE ALDRIDGE Sat Apr 21, 2004 9:38 AM patient is calling regarding having a swollen tongue. he is having some difficulty swallowing. bib nt states that he has a tooth that needs to be removed. he is unsure if this is the cause of his swo llen tongue. patient is not having difficulty breathing. TRIAGE REFERENCE: ALLERGIC REACTION - ADULT CNG (c) 2002 STAT SYMPTOMS: facial edema Onset of symptoms: Sudden, duration: this morning. Location: tongue and mouth swelling, Dyspnea: No, Dysphagia: Yes. Rash: none. Itching: No. Other systemic symptoms: none. History of allergies: No. Exposure to possible allergens: none. PMH: Chronic illness CURRENT MEDICATIONS: Yes: atenolol MEDICATION ALLERGIES: No HOME TREATMENT: Discussed per guideline If possible drug related, hold medication, MD will be consulted Increase fluids for internal allergen (e.g.) food or medicine Oral antihistamine: adult benadryl 25-50 mg q 4-6 hrs Cold compress or baking soda compress Cool bath, can add baking soda or oatmeal or aveeno PLAN: Urgent Care eval Home treat & monitor symptoms, call back if they increase or if concerns patient was transferred to the appointment center to make an appointment to be seen in urgent care t santy. patient verbalized understanding and is comfortable with this plan. documented in this encounter Plan of Treatment Not on filedocumented as of this encounter Visit Diagnoses Not on filedocumented in this encounter Care Teams Search Engine Optimizer Relationship Specialty Start Date End Date Unassigned, Provider PCP - General 10/25/00 07/14/[address] [place] [phone] documented as of this encounter
--- OUTSIDE RECORDS SUMMARY | 2022-06-20 14:20 | XMS_ITS | Encounter Summary ---
:1945 Author [facility] Address [address] [place] [address] Care Team Providers Name Role Phone Unassigned, Provider Primary Care Provider Unavailable Encounter Details Date Type Department Care Team Description 12/04/2006 Correspondence External to [facility] Ryan Flores, Provider CONSEN T/RELEASE Social History Tobacco Use Types Packs/Day Years Used Date Smoking Tobacco: Never Alcohol Use Standard Drinks/Week Comments Not Asked 0 (1 standard drink = 0.6 oz pure alcoho l) Sex Assigned at Date Recorded Not on file documented as of this encounter Progress Notes Ryan Flores, Provider - 12/04/2006 12:00 AM CDT documented in this encounter Plan of Treatment Not on filedocumented as of this encounter Visit Diagnoses Not on filedocumented in this encounter Care Teams Wood Type Finisher Relationship Specialty Start Date End Date Unassigned, Provider PCP - General 10/25/00 07/14/[address] [place] [address] documented as of this encounter
--- OUTSIDE RECORDS SUMMARY | 2022-06-20 14:20 | XMS_ITS | Clinical Summary ---
:1945 Author Organization [facility] [place] [address] Care Team Providers Name Role Phone Juan José Michelle Primary Care Provider Unavailable Allergies No known active allergies Medications Medication Sig Dispensed Refills Start Date End Date Status ALLOPURINOL ORAL Take 300 mg by 0 Active mouth once daily. triamterene-hydrochlor Take 1 capsule by 0 Active othiazide, 37.5-25 mg, mouth every (DYAZIDE) 37.5-25 mg morning. capsule lisinopril-hydrochloro RTS 10/22 TAKE 1 2 05/06/2017 Active thiazide, 20-25 mg, TABLET BY MOUTH (PRINZIDE, ZESTORETIC) EVERY DAY 20-25 mg per tablet dorzolamide-timolol Place 1 Drop into 3 03/06/2017 Active (COSOPT) 2-0.5 % both eyes 2 times ophthalmic solution daily. Active Problems No known active problems Social History Tobacco Use Types Packs/Day Years Used Date Never Smoker Cigars Smokeless Tobacco: Never Used Alcohol Use Standard Drinks/Week Comments No 0 (1 standard drink = 0.6 oz pure alcoho l) Sex Assigned at Date Recorded Not on file Obstetrics History Last Filed Vital Signs Vital Sign Reading Time Taken Comments Blood Pressure 144/94 05/20/2017 10:38 AM CDT Pulse 64 05/20/2017 10:38 AM CDT Temperature 36.6 ??C (97.8 ??F) 05/20/2017 10:04 AM CDT Respiratory Rate 16 05/20/2017 10:38 AM CDT Oxygen Saturation 97% 05/20/2017 10:38 AM CDT Inhaled Oxygen Concentration - - Weight 107.6 kg (237 lb 3.4 oz) 05/20/2017 7:55 AM CDT Height 170.2 cm (5' 7) 05/20/2017 7:55 AM CDT Body Mass Index 37.15 05/20/2017 7:55 AM CDT Plan of Treatment Not on file Medical Devices Implanted Type Area Hydrogen Treater Device Shelf Model / Identifier Expiration Serial / Date Lot Stent Trabecular Lf Micro Bypass Istent - [id number] ght: Edi 11/13/2019 [id number] / Implanted: Qty: 1 on 05/20/2017 by Asim Iraheta MD at [facility] [id number] / Results Not on filefrom Last 3 Months Insurance Payer Benefit Plan / Subscriber ID Effective Dates Phone Addre ss Type Group MEDICARE PART B MEDICARE PART B [id number] 2011-Present ATTN: CLAIMS - HB USE ONLY HB ONLY [address] [place] [address] MEDICA MEDICA PRIME [id number] 2016-Present [address] [address] [place] [address] [address] (Home) [address] [place] [address] Advance Directives Latest Code Status on File Code Status Date Activated Date Inactivated Comments Full Code 05/20/2017 7:50 AM 05/21/2017 2:29 AM Care Teams Chaplain Relationship Specialty Start Date End Date Juan José Michelle PCP - General Surgery - General 05/16/17
--- OUTSIDE RECORDS SUMMARY | 2022-06-20 14:20 | XMS_ITS | Encounter Summary ---
:1945 Author Organization [facility] Address [address] [place] [address] Care Team Providers Name Role Phone Unassigned, Provider Primary Care Provider Unavailable Reason for Visit Reason Comments SHOT,FLU Encounter Details Date Type Department Care Team Description 09/02/2006 Office Visit [facility] Need for Prophylactic [address] [place] [address] Inoculation Against [phone] Influenza (Prim jamaal Dx) Social History Tobacco Use Types Packs/Day Years Used Date Smoking Tobacco: Never Alcohol Use Standard Drinks/Week Comments Not Asked 0 (1 standard drink = 0.6 oz pure alcoho l) Sex Assigned at Date Recorded Not on file documented as of this encounter Progress Notes Flakita Gao - 09/02/2006 3:51 PM CST SUBJECTIVE: Ruddy Calhoun is a 60 yr old male here for a flu shot. Severe allergy to eggs: no Severe allergy to latex (Does not apply to persons receiving Fluzone vaccine): no Previous severe reaction to influenza vaccine: no Severe reaction to thimerosal (Does not apply to persons receiving Fluzone 100% Preservative-free vaccine): no Recent onset of major neurological problem: no Ill appearing with increased respiratory rate, moderate fever (>101.0 F), and increased heart rate: no NOTE: a moderate illness such as otitis, sinusitis or URI accompanied by a fever up to 102.0 isnot a contraindication to immunization. History of bleeding problem: no History of [place] within 6 weeks of receiving an influenza immunization: no (If YES to any of the above, consult MD) OBJECTIVE: Temp ASSESSMENT: Eligible for flu vaccine today: YES PLAN: Administer vaccine: Education: discussed possible side effects and provided health education materials. Flakita Gao LPN 09/02/2006 3:51 PM FILLER documented in this encounter Plan of Treatment Not on filedocumented as of this encounter Visit Diagnoses Diagnosis Need for prophylactic vaccination and in oculation against influenza - Primary documented in this encounter Care Teams Gear Tooth Lapping Machine Operator Relationship Specialty Start Date End Date Unassigned, Provider PCP - General 10/25/00 07/14/[address] [place] [phone] documented as of this encounter
--- OUTSIDE RECORDS SUMMARY | 2022-06-20 14:20 | XMS_ITS | Encounter Summary ---
:1945 Author Organization [facility] Address [address] [place] [address] Care Team Providers Name Role Phone Unassigned, Provider Primary Care Provider Unavailable Reason for Visit Reason Comments SWELLING, LEG L calf Encounter Details Date Type Department Care Team Description 12/04/2006 Office Visit [facility] Edema Leg (Primary Dx); [address] Elevated Blood Pressure [place], [place] [address] Social History Tobacco Use Types Packs/Day Years Used Date Smoking Tobacco: Never Alcohol Use Standard Drinks/Week Comments Not Asked 0 (1 standard drink = 0.6 oz pure alcoho l) Sex Assigned at Date Recorded Not on file documented as of this encounter Last Filed Vital Signs Vital Sign Reading Time Taken Comments Blood Pressure 144/80 12/04/2006 8:30 PM CDT Pulse 64 12/04/2006 8:30 PM CDT Temperature 36.2 ??C (97.1 ??F) 12/04/2006 8:30 PM CDT Respiratory Rate 16 12/04/2006 8:30 PM CDT Oxygen Saturation - - Inhaled Oxygen Concentration - - Weight - - Height - - Body Mass Index - - documented in this encounter Progress Notes Thomas Jaime - 12/04/2006 9:47 PM CDT History: 61-year-old white male who yesterday completed a [address] out to [place], [place] and back,with a lot of prolonged sitting. Last night and today, the patient has had a cramping feeling in hisleft calf, and the patient's has noted a slight increase welling of the left leg compared to the right. At this time, there is no overt pain in the left leg or calf. No chest pain. No shortness ofbreath. No prior history of DVT or pulmonary embolism. Patient is accompanied this evening by his . Past medical history is remarkable only for hypertension. Patient's only ongoing medications are lisinopril and hydrochlorothiazide. NKDA. Physical exam: Temperature of 97.1, pulse of 64, respiratory rate of 16, and a blood pressure of 144/80. Pleasant man in no acute distress. In fact the patient appears in no distress. Normal ambulatory gait. Patient does have a slight increased swelling in the left calf when compared to the right, with slight pitting edema custodial up the shins bilaterally. The right calf circumference is measured at 44 cm, comparedto the left calf that is 45 cm, and the patient is right-handed. There is no swelling or edema aboutthe feet. No tenderness about the right calf, popliteal area, as well as not about the rest of the deep venous system, including the femoral vein. There are also no palpable cords nor areas of erythema. Homans test is negative. Range of motion, strength, circulation, and sensation of the lower extremities are intact and equal bilaterally. Assessment: Left lower leg/calf slight edema, history of cramping, and history of prolonged sitting,while placing the patient at risk for having a DVT. Plan: 1. Patient's case is discussed with Dr. Scott, emergency room physician at [facility], and the patient will be transported directly over to the emergency room this evening by the patient'swife, for further evaluation including Doppler evaluation of the lower extremity. Subsequent care per the emergency room staff. Thomas Jaime M.D. documented in this encounter Nursing Notes 12/04/2006 8:30 PM CDT >> XOCHITL RICHARDSON LPN [facility] Dec 04, 2006 8:32 PM XOCHITL RICHARDSON LPN 8:30 PM documented in this encounter Plan of Treatment Not on filedocumented as of this encounter Visit Diagnoses Diagnosis Edema leg - Primary Edema Elevated blood pressure Elevated blood pressure reading without diagnosis of hypertension documented in this encounter Care Teams Set O Type Operator Relationship Specialty Start Date End Date Unassigned, Provider PCP - General 10/25/00 07/14/[address] [place] [phone] documented as of this encounter
[2022-06-20 16:21] LABS: Albumin* 3.8 g/dL (3.3-5.0); Chloride* 101 mmol/L (96-114)
[2022-06-20 16:22] LABS: Potassium* 4.3 mmol/L (3.6-5.1); Sodium* 141 mmol/L (135-149)
[2022-06-20 16:24] LABS: Alkaline Phosphatase* 101 U/L (40-150); Aspartate Amino Transferase* 24 U/L (12-35); Bilirubin Total* 0.4 mg/dL (0.1-1.5); Blood Urea Nitrogen* 25 mg/dL (7-30); Carbon Dioxide* 34 mmol/L (20-32); Cholesterol* 150 mg/dL (90-199); Creatinine* 1.2 mg/dL (0.5-1.5); Estimated Glomerular Filt Rate 63 ml/min; Glucose* 97 mg/dL (60-115); Total Protein* 6.6 g/dL (6.0-8.3)
[2022-06-20 16:25] LABS: Alanine Aminotransferase* 27 U/L (4-50); Calcium* 9.7 mg/dL (8.4-10.6); HDL Cholesterol* 48 mg/dL (>=40); LDL Cholesterol Calculated 81 mg/dL (<100); Triglycerides* 103 mg/dL (40-149)
[2022-06-20 16:56] LABS: PSA Screen* 1.04 ng/mL (0.10-4.00)
== END 2022-06-20 13:59 | disposition home or self-care (01) ==
PROVIDERS: PCP Internal Medicine; Visit Provider Internal Medicine
DX: Z00.00 Encounter for general adult medical examination without abnormal findings (principal); K63.5 Polyp of colon; Z13.6 Encounter for screening for cardiovascular disorders; Z12.5 Encounter for screening for malignant neoplasm of prostate
CPT/HCPCS: 80053; 80061; 84153

== ENCOUNTER 2022-07-19 12:04 | Outpatient (CLI) | payer MEDICARE, SELFPAY ==
--- OUTSIDE RECORDS SUMMARY | 2022-07-19 12:13 | XMS_ITS | Encounter Summary ---
:1945 Author Organization [facility] Address [address] [facility] [place] [address] Care Team Providers Name Role Phone Adonis Grullon Keon GREENE Unavailable MackRuddy Felipe DPM Unavailable Thomas Giron MD Primary Care Provider Thomas Giron MD Unavailable Reason for Visit Reason Comments Medication Refill Encounter Details Date Type Department Care Team Description 07/26/2021 Refill [facility] Thomas Singleton MD Medication Refill [place] [address] [place] [phone] [place] [address] [phone] Social History Tobacco Use Types Packs/Day Years Used Date Smoking Tobacco: Never Cigarettes 0 0 Cigars Smokeless Tobacco: Never Alcohol Use Standard Drinks/Week Comments No 0 (1 standard drink = 0.6 oz pure not fo r about 35 years (as of 2014) alcohol) Sex Assigned at Date Recorded Not on file documented as of this encounter Miscellaneous Notes Telephone Encounter - Jae Schwarz RN - 07/26/2021 3:21 PM CST Routing refill request to provider for review/approval because: Routing to PCP to review, last filled by different provider Jae Schwarz RN [facility] Triage Nurse INE ASSEMBLER documented in this encounter Plan of Treatment Not on filedocumented as of this encounter Visit Diagnoses Diagnosis Benign essential hypertension Essential hypertension, benign documented in this encounter Care Teams Control Clerk Repairs Relationship Specialty Start Date End Date Thomas Giron MD PCP - General Internal Medicine 07/09/[address] [place] [address] Adonis Grullon, Assigned Neuroscience 11/29/20 PA-C Provider [address] [place] [id number] Ruddy Giron, Assigned Musculoskeletal 01/28/21 DPM Provider [address] [facility] [address] [place], [place] [address] Thomas Giron MD Assigned PCP 06/24/[address] [place] [address] documented as of this encounter
--- OUTSIDE RECORDS SUMMARY | 2022-07-19 12:13 | XMS_ITS | Encounter Summary ---
:1945 Author Organization [facility] Address [address] [facility] [place] [address] Care Team Providers Name Role Phone Adonis Grullon Keon GREENE Unavailable Thomas Singleton MD Primary Care Provider Ruddy Giron DPM Unavailable Thomas Singleton MD Unavailable Reason for Visit Reason Comments Medication Refill Encounter Details Date Type Department Care Team Description 04/04/2021 Refill [facility] Juan José Michelle MD Medication Refill [place] [address] [facility] [address] [facility] [place] [address] [place] [address] [phone] Social History Tobacco Use Types Packs/Day Years Used Date Smoking Tobacco: Never Cigars Smokeless Tobacco: Never Alcohol Use Standard [...] 04/06/2021 9:30 AM CDT Prescription approved per [facility] Refill Protocol. documented in this encounter Plan of Treatment Not on filedocumented as of this encounter Visit Diagnoses Diagnosis Routine general medical examination at a health care facility documented in this encounter Care Teams Hot Mill Tin Roller Relationship Specialty Start Date End Date Thomas Singleton MD PCP - General Internal Medicine 01/10/21 07/08/[address] [place] [phone] Adonis Grullon, Assigned Neuroscience 11/29/20 PA-C Provider [address] [facility] [address] [place] [address] Ruddy Giron, Assigned Musculoskeletal 01/28/21 DPM Provider [address] [facility] [address] [place] [address] Thomas Singleton MD Assigned PCP 02/25/21 06/23/[address] [place] [phone] documented as of this encounter
--- OUTSIDE RECORDS SUMMARY | 2022-07-19 12:13 | XMS_ITS | Encounter Summary ---
:1945 Author Organization [facility] Address [address] [facility] [place] [address] Care Team Providers Name Role Phone RichaRoss perezodilia Herbert PA-C Unavailable Ruddy Giron DPM Unavailable Thomas Giron MD Primary Care Provider Thomas Giron MD Unavailable Reason for Visit Reason Onset Date Comments Refill Request 07/26/2021 allopurinol Encounter Details Date Type Department Care Team Description 07/26/2021 Refill [facility] None Ref ill Request (allopurinol) [address], [address] [place] [address] Social History Tobacco Use Types Packs/Day Years [...] 07/26/2021 3:43 PM CST Prescription approved per [facility] Refill Protocol. 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
--- OUTSIDE RECORDS SUMMARY | 2022-07-19 12:13 | XMS_ITS | Encounter Summary ---
:1945 Author Organization [facility] Address [address] [facility] [place] [address] Care Team Providers Name Role Phone Juan José Michelle MD Primary Care Provider Juan José Michelle MD Unavailable Reason for Visit Reason Onset Date Comments Refill Request 09/23/2020 allopurinol Encounter Details Date Type Department Care Team Description 09/23/2020 Refill [facility] Juan José Michelle MD Refill Request [place] [address] [facility] (allopurinol) [address] [facility] [address] [place] [phone] (Wo rk) Social [...] Disp-90 tablet,R-2, E-Prescribe Start: 01/25/2020 Ord/Sold: 01/25/2020 N SPOUTER documented in this encounter Plan of Treatment Not on filedocumented as of this encounter Visit Diagnoses Diagnosis 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
--- OUTSIDE RECORDS SUMMARY | 2022-07-19 12:13 | XMS_ITS | Encounter Summary ---
:1945 Author Organization [place] Address 2450 [facility] [place] [address] Care Team Providers Name Role Phone Adonis Grullon Keon GREENE Unavailable Mack Ruddy Wang DPM Unavailable Thomas Giron MD Primary Care Provider Thomas Giron MD Unavailable Reason for Visit Reason Comments Medication Refill Encounter Details Date Type Department Care Team Description 05/20/[address] [facility] Thomas Giron MD Medication Refill [place] 6545 [facility] 6545 [facility], [address] [place] [address] [place] [address] [phone] Social History Tobacco Use Types Packs/Day Years [...] 05/22/2022 12:43 PM CDT Prescription approved per [facility] Refill Protocol. 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
--- OUTSIDE RECORDS SUMMARY | 2022-07-19 12:13 | XMS_ITS | Encounter Summary ---
:1945 Author Organization [place] Address [address] [facility] [place] [address] Care Team Providers Name Role Phone Juan José Michelle MD Primary Care Provider Juan José Michelle MD Unavailable Reason for Visit Reason Onset Date Comments Forms 09/20/2020 handicap Encounter Details Date Type Department Care Team Description 09/20/2020 Telephone [facility] Juan José Michelle MD Forms (handicap) [place] 6545 [facility] 6545 [facility], 150 [address] [place] [address] [place] [address] [phone] Social History Tobacco Use Types Packs/Day Years Used Date Smoking Tobacco: Never Cigars Smokeless Tobacco: Never Alcohol Use Standard Drinks/Week Comments No 0 (1 standard drink = 0.6 oz pure not fo r about 35 years (as of 2014) alcohol) Sex Assigned at Date Recorded Not on file documented as of this encounter Miscellaneous Notes Telephone Encounter - Tran Pope - 09/26/2020 10:45 AM CST Form completed. Copy made and placed in purple pod. Original placed in outgoing mail in Pt-provided envelope. T CULLER Telephone Encounter - Tran Pope - 09/20/2020 11:55 AM CST Form was placed on Dr. Michelle's desk. Copy made and placed in purple pod T CULLER Telephone Encounter - Tran Pope - 09/20/2020 11:49 AM CST Reason for Call: Form, our goal is to have forms completed with 72 hours, however, some forms may require a visit or additional information. Type of letter, form or note: handicap Who is the form from?: [place] [employer] (if other please explain) Where did the form come from: form was mailed in What clinic location was the form placed at?: [facility] Where the form was placed: Placed on physician's desk What number is listed as a contact on the form?: [phone] (home) Additional comments: Mailed from Pt: Dr. Michelle, My left shoulder is still a problem if I take a fall on the ice. It would be helpful to have a handicap certificate until January 13, 2021 (#9). Thank you for considering this request Call taken on 09/20/2020 at 11:50 AM by Tran Pope T CULLER documented in this encounter Plan of Treatment Not on filedocumented as of this encounter Visit Diagnoses Not on filedocumented in this encounter Care Teams Pipelines Laborer Relationship Specialty Start Date End Date Juan José Michelle MD PCP - General Internal Medicine 05/08/15 01/09/21 Juan José Michelle MD Assigned PCP 07/26/16 12/30/20 [address] [place] [phone] documented as of this encounter
--- OUTSIDE RECORDS SUMMARY | 2022-07-19 12:13 | XMS_ITS | Encounter Summary ---
:1945 Author Organization [place] Address [address] [facility] [place] [address] Care Team Providers Name Role Phone Juan [...] with No / Unsure 11/06/2020 3:39 PM JAVA FLEX DEVELOPER someone who was confirmed or suspected to have Coronavirus / COVID-19? documented as of this encounter Plan of Treatment Not on filedocumented as of this encounter Visit Diagnoses Not on filedocumented in this encounter Care Teams Housekeeping Cleaner Relationship Specialty Start Date End Date Juan José Michelle MD PCP - General Internal Medicine 05/08/15 01/09/21 Juan José Michelle MD Assigned PCP 07/26/16 12/30/20 [address] [place] [phone] documented as of this encounter
--- OUTSIDE RECORDS SUMMARY | 2022-07-19 12:13 | XMS_ITS | Encounter Summary ---
:1945 Author Organization [place] Address [address] [facility] [place] [address] Care Team Providers Name Role Phone Juan José Michelle MD Primary Care Provider Juan José Michelle MD Unavailable Reason for Visit Reason Onset Date Comments RECHECK 04/05/2020 recheck pap use, d/l in synopsis Encounter Details Date Type Department Care Team Description 04/05/2020 Virtual Visit [facility] Adonis Grullon DIANNE ([facility] Angy Herbert PA-C sleep apnea) (Primary [address]) [place] [address] [address] [place] [address] [place] [address] Social History Tobacco Use Types [...] would you like to be contacted at? [phone] How would you like to obtain your [...] in this encounter Nursing Notes Maddy Brewer E - 04/05/2020 10:00 AM CDT Chief Complaint [...] ic) documented in this encounter Care Teams Payroll Analyst Relationship Specialty Start Date End Date Juan José Michelle MD PCP - General Internal Medicine 05/08/15 01/09/21 Juan José Michelle MD Assigned PCP 07/26/16 12/30/20 [address] [place] [phone] documented as of this encounter
--- OUTSIDE RECORDS SUMMARY | 2022-07-19 12:13 | XMS_ITS | Encounter Summary ---
:1945 Author Organization [place] Address 2450 [facility] [place] [address] Care Team Providers Name Role Phone Mitchel Adonis ABREU-Simeon Unavailable Mitchel Adonis Herbert PA-C Unavailable Thuy Zhao MD Unavailable Thuy Zhao MD Primary Care Provider Reason for Visit Reason Comments Medication Refill Encounter Details Date Type Department Care Team Description 01/16/2021 Refill [facility] Juan José Michelle MD Medication Refill [place] 6545 [facility] 6545 [facility], [address] [place] [address] [place] [address] [phone] Social History Tobacco Use Types Packs/Day Years [...] benign documented in this encounter Care Teams Admissions Officer Relationship Specialty Start Date End Date Thuy Zhao MD PCP - General Internal Medicine 01/10/21 07/08/21 [address] [place] [address] Adonis Grullon, Assigned Neuroscience 11/29/20 JC Provider [address] [place] [address] Adonis Grullon, Assigned Sleep Provider 11/29/20 02/24/21 JC [address] [place] [id number] Thuy Zhao MD Assigned PCP 12/31/20 02/07/[address] [place] [phone] documented as of this encounter
--- OUTSIDE RECORDS SUMMARY | 2022-07-19 12:13 | XMS_ITS | Encounter Summary ---
:1945 Author Organization [place] Address [address] [facility] [place] [address] Care Team Providers Name Role Phone Adonis [...] on filedocumented in this encounter Care Teams Palliative Senior Np Relationship Specialty Start Date End Date Thomas Singleton MD PCP - General Internal Medicine 01/10/21 07/08/21 [address] [place] [address] Adonis Grullon, Assigned Neuroscience 11/29/20 PA-C Provider [address] [place] [address] Ruddy Giron, Assigned Musculoskeletal 01/28/21 DPM Provider [address] [facility] [address] [place] [address] Thomas Singleton MD Assigned PCP 02/25/21 06/23/[address] [place] [phone] documented as of this encounter
--- OUTSIDE RECORDS SUMMARY | 2022-07-19 12:13 | XMS_ITS | Encounter Summary ---
:1945 Author Organization [place] Address [facility] [place] [address] Care Team Providers Name Role Phone Adonis [...] on filedocumented in this encounter Care Teams Employer Relations Representative Relationship Specialty Start Date End Date Thomas Snigleton MD PCP - General Internal Medicine 01/10/21 07/08/21 [address] [place] [address] Adonis Grullon Assigned Neuroscience 11/29/20 PA-C Provider [address] [place] [id number] Adonis Grullon, Assigned Sleep Provider 11/29/20 02/24/21 JC [address] [place] [id number] Thomas Singleton MD Assigned PCP 12/31/20 02/07/21 [address] [place] [phone] documented as of this encounter
--- OUTSIDE RECORDS SUMMARY | 2022-07-19 12:13 | XMS_ITS | Encounter Summary ---
:1945 Author Organization [place] Address [address] [facility] [place] [address] Care Team Providers Name Role Phone RichaRoss perezodilia Herbert PA-C Unavailable Thomas Singleton MD Primary Care Provider Ruddy Giron DPM Unavailable Thomas Singleton MD Unavailable Encounter Details Date Type Department Care Team Description 06/18/2021 Lab [facility] Encounter for preventative [facility] adult health care examinatio n [address] [place], [place] [phone] Social History Tobacco Use [...] City/State/ZIP Code [place] [address] [phone] Lab 500 [facility] Building, Room 3-580 [place] [address], [facility] [place] 500 [facility], Room 3580 documented in this encounter Visit Diagnoses Diagnosis Encounter for preventative adult health care examination documented in this encounter Care Teams Luggage Maker Relationship Specialty Start Date End Date Thomas Singleton MD PCP - General Internal Medicine 01/10/21 07/08/21 [address] [place] [phone] Adonis Grullon, Assigned Neuroscience 11/29/20 PA-C Provider [address] [facility] [address] [place], [place] [phone] Ruddy Giron, Assigned Musculoskeletal 01/28/21 DPM Provider [address] [facility] [address] [place] [address] Thomas Singleton MD Assigned PCP 02/25/21 06/23/21 [address] [place] [phone] documented as of this encounter
--- OUTSIDE RECORDS SUMMARY | 2022-07-19 12:13 | XMS_ITS | Encounter Summary ---
:1945 Author Organization [place] Address [address] [facility] [place] [address] Care Team Providers Name Role Phone Adonis [...] on filedocumented in this encounter Care Teams Personal Injury Paralegal Relationship Specialty Start Date End Date Thomas Singleton MD PCP - General Internal Medicine 01/10/21 07/08/21 [address] [place] [address] Adonis Grullon, Assigned Neuroscience 11/29/20 PA-C Provider [address] [place] [id number] Adonis Grullon, Assigned Sleep Provider 11/29/20 02/24/21 PA-C [address] [place] [id number] Thomas Singleton MD Assigned PCP 12/31/20 02/07/[address] [place] [phone] Ruddy Grion, Assigned Musculoskeletal 01/28/21 DPM Provider [address] [facility] [address] [place] [address] documented as of this encounter
--- OUTSIDE RECORDS SUMMARY | 2022-07-19 12:13 | XMS_ITS | Encounter Summary ---
:1945 Author Organization [place] Address [address]50 [facility] [place] [address] Care Team Providers Name Role Phone Richaana Adonis ABREU-Simeon Unavailable Mitchel Adonis ABREU-C Unavailable Thomas Singleton MD Unavailable Thoams Singleton MD Primary Care Provider Reason for Visit Reason Comments Bunion Bunion Encounter Details Date Type Department Care Team Description 01/25/2021 Office Visit [facility] Ruddy Giron, Pes planus of both feet (Primary Dx); FSOC [place] DPM Valgus deformity of both great toes Podiatry [address] [place] [address] [address] [place] [address] [phone] (Wo rk) Social History Tobacco Use Types Packs/Day Years Used Date Smoking Tobacco: Never Cigars Smokeless Tobacco: Never Tobacco Cessation: Counseling Given: Yes Alcohol Use [...] this encounter Patient Instructions Patient InstructionsCeci Mayela Sidhu, REWORK OPERATOR - 01/25/2021 3:30 PM CDT Thank you for choosing [facility]! [facility] LOCATIONS [facility] SURGERY: [phone] APPOINTMENTS: [phone] [place] [address] BILLING QUESTIONS: [phone] FX [phone] RADIOLOGY: [phone] [address] [place] [address] FX [phone] Follow up: 1 year or sooner if issues Next steps: external custom orthotic ROUTINE FOOT CARE (NAIL TRIMMING / CALLUSES) Go to [email or web address] ([facility]) and search for providers near you. Otherwise, this is a list we have gathered of recommended locations/providers in [place]. [facility] [phone] [facility] [phone] [email or web address] [employer] [phone] [place] + 15 mile radius [facility] [phone] jacquie. Diana Queen, DPM [address] [place], [place] [phone] Asim Harris, AIDEE [address] [place] [address] [facility] [phone] [address] [place] [address] [facility] [address] Venkata Canela [phone] [facility] [phone] [place] [employer] Locations (does not take BCBS) FYI: *Some providers [...] in this chart. Ruddy Giron DPM, FACFAS, [facility] Department of Podiatry/Foot & Ankle Surgery HPI: [...] Patient Ruddy Calhoun was set up at [facility] on May 25, 2015. Patient received a Resmed Airsense 10 Auto. Pressures were set at Auto 5 - 15 cm H2O. Patient???s ramp is 0 cm H2O for Off and FLEX/EPR is A Flex 2. Patient received a [employer] Mask name: Simplus Full Face mask Size [...] toes documented in this encounter Care Teams Hearing Aid Fitter Relationship Specialty Start Date End Date Thomas Singleton MD PCP - General Internal Medicine 01/10/21 07/08/[address] [place] [address] Adonis Grullon, Assigned Neuroscience 11/29/20 PA-C Provider [address] [facility] 103 [place] [address] Adonis Grullon, Assigned Sleep Provider 11/29/20 02/24/21 JC [address] [place] [address] Thomas Singleton MD Assigned PCP 12/31/20 02/07/[address] [place] [phone] documented as of this encounter
--- OUTSIDE RECORDS SUMMARY | 2022-07-19 12:13 | XMS_ITS | Encounter Summary ---
:1945 Author Organization [place] Address [address]50 [facility] [address] Care Team Providers Name Role Phone Juan José Michelle MD Primary Care Provider Juan José Michelle MD Unavailable Reason for Visit Reason Onset Date Comments Refill Request 09/06/2020 lisinopril-hctz Encounter Details Date Type Department Care Team Description 09/06/2020 Refill [facility] Juan José Michelle MD Refill Request [place] 6545 [facility] ([facility] [address] [facility] [address] [place] [phone] (Wo rk) Social History Tobacco Use Types [...] benign documented in this encounter Care Teams Front Edger Relationship Specialty Start Date End Date Jua nJosé Michelle MD PCP - General Internal Medicine 05/08/15 01/09/21 Juan José Michelle MD Assigned PCP 07/26/16 12/30/20 [address] [facility] [address] [place], [place] [address] documented as of this encounter
--- OUTSIDE RECORDS SUMMARY | 2022-07-19 12:13 | XMS_ITS | Encounter Summary ---
:1945 Author Organization [place] Address [address]50 [facility] [place] [address] Care Team Providers Name Role Phone Adonis Grullon Keon GREENE Unavailable Ruddy Giron DPM Unavailable Thomas Giron MD Primary Care Provider Thomas Giron MD Unavailable Reason for Visit Reason Comments Medication Refill Encounter Details Date Type Department Care Team Description 06/05/2022 Refill [facility] Thomas Singleton MD Medication Refill [place] [address] [place] [address] 150 [address] [place] [address] [phone] Social History Tobacco Use Types Packs/Day Years [...] one year since last visit. Routing to [place]. The Pt is due for a visit with PCP Nadya Velez RN, BSN documented in this encounter Plan of Treatment Not on filedocumented as of this encounter Visit Diagnoses Diagnosis Benign essential hypertension Essential hypertension, benign documented in this encounter Care Teams Diabetes Solutions Specialist Relationship Specialty Start Date End Date Thomas Giron MD PCP - General Internal Medicine 07/09/[address] [place] [address] Adonis Grullon, Assigned Neuroscience 11/29/20 PA-C Provider [address] [place] [address] Ruddy Giron, Assigned Musculoskeletal 01/28/21 DPM Provider [address] [facility] [address] [place], [place] [address] Thomas Giron MD Assigned PCP 06/24/[address] [place] [address] documented as of this encounter
--- OUTSIDE RECORDS SUMMARY | 2022-07-19 12:13 | XMS_ITS | Encounter Summary ---
:1945 Author Organization [place] Address [address] [facility] [place] [address] Care Team Providers Name Role Phone Adonis [...] on filedocumented in this encounter Care Teams Weekend Receptionist Relationship Specialty Start Date End Date Thomas Singleton MD PCP - General Internal Medicine 01/10/21 07/08/21 [address] [place] [address] Adonis Grullon, Assigned Neuroscience 11/29/20 PA-C Provider [address] [place] [address] Ruddy Giron, Assigned Musculoskeletal 01/28/21 DPM Provider [address] [facility] [address] [place] [address] Thomas Singleton MD Assigned PCP 02/25/21 06/23/21 [address] [place] [phone] documented as of this encounter
--- OUTSIDE RECORDS SUMMARY | 2022-07-19 12:13 | XMS_ITS | Encounter Summary ---
:1945 Author Organization [place] Address [address] [facility] [address] Care Team Providers Name Role Phone RichaAdonis perez Keon GREENE Unavailable Ruddy Giron DPM Unavailable Thomas Giron MD Primary Care Provider Thomas Giron MD Unavailable Reason for Visit Reason Onset Date Comments Forms 07/09/2021 disability parking c ert form Encounter Details Date Type Department Care Team Description 07/09/2021 [facility] Thomas Giron, Forms (disability Clinic [place] WISDOM parking cert form) 6545 [facility], [address] [facility] [address] [place] [address] [place] [address] Social History Tobacco Use Types Packs/Day Years [...] sent to [facility] and placed in accordion file-Emma Pod Telephone Encounter - Jade Ward - [...] on filedocumented in this encounter Care Teams Baseball Winder Relationship Specialty Start Date End Date Thomas Giron MD PCP - General Internal Medicine 07/09/21 [address] [place] [address] Adonis Grullon, Assigned Neuroscience 11/29/20 PA-C Provider [address] [place] [phone] Ruddy Giron, Assigned Musculoskeletal 01/28/21 DPM Provider [address] [facility] [address] [place], [place] [address] Thomas Giron MD Assigned PCP 06/24/21 [address] [place], [place] [address] documented as of this encounter
--- OUTSIDE RECORDS SUMMARY | 2022-07-19 12:13 | XMS_ITS | Encounter Summary ---
:1945 Author Organization [place] Address [address] [facility] [place] [address] Care Team Providers Name Role Phone Juan José Mcihelle MD Primary Care Provider Juan José Michelle MD Unavailable Adonis Grullon PA-C Unavailable Adonis Grullon-Simeon Unavailable Thomas Singleton MD Unavailable Thomas Singleton MD Primary Care Provider Ruddy Giron DPM Unavailable Juan José Michelle MD Unavailable Thomas Singleton MD Unavailable Thomas Giron MD Primary Care Provider Thomas Giron MD Unavailable Reason for Visit Reason Comments Medication Refill Encounter Details Date Type Department Care Team Description [facility] Michelle MD Medication Refill [place] 5001 [facility] 6545 [facility], [address] [place] [address] [place] [address] [phone] Social History Tobacco Use Types Packs/Day Years [...] facility documented in this encounter Care Teams Recreation Supervisor Relationship Specialty Start Date End Date Juan José Michelle MD PCP - General Internal Medicine 05/08/15 01/09/21 Thomas Singleton MD PCP - General Internal Medicine 01/10/21 07/08/[address] [place] [phone] Thomas Giron MD PCP - General Internal Medicine 07/09/[address] [place] [address] Juan José Michelle MD Assigned PCP 07/26/16 12/30/[address] [place] [address] Adonis Grullon, Assigned Neuroscience 11/29/20 PA-C Provider [address] [place], [place] [phone] Adonis Grullon, Assigned Sleep Provider 11/29/20 02/24/21 PA-C [address] [place] [address] Thomas Singleton MD Assigned PCP 12/31/20 02/07/21 [address] [place] [phone] Ruddy Giron, Assigned Musculoskeletal 01/28/21 DPM Provider [address] [facility] [address] [place], [place] [phone] Juan José Michelle MD Assigned PCP 02/08/21 02/24/21 [address] [place] [phone] Thomas Singleton MD Assigned PCP 02/25/21 06/23/21 [address] [place] [address], [place] [phone] Thomas Giron MD Assigned PCP 06/24/21 [address] [place], [place] [address] documented as of this encounter
--- OUTSIDE RECORDS SUMMARY | 2022-07-19 12:13 | XMS_ITS | Encounter Summary ---
:1945 Author Organization [place] Address [address] [facility] [address] Care Team Providers Name Role Phone Mitchel Adonis Herbert PA-C Unavailable Thomas Singleton MD Primary Care Provider Ruddy Giron DPM Unavailable Thomas Singleton MD Unavailable Reason for Referral Consultation (Urgent) - Closed Specialty Diagnoses / Procedures Referred By Contact Refer red To Contact Dermatology Diagnoses Skin lesion Thomas Giron MD DER[place], [place] REF'L [address] [place] [address] [address] [place] [address] Phone: Referral ID Status Reason Start Date Expiration Date Visits Requ ested Visits Authorized [id number] Closed 03/06/2021 03/06/2022 1 1 Reason for [...] Department Care Team Description 03/06/2021 Office Visit [facility] Thomas Giron, Skin l esion (Primary Clinic [place] WISDOM Dx) [address] [facility], [address] [facility] [address] [place] [address] [place] [address] [phone] Social History Tobacco Use Types Packs/Day Years [...] No follow-ups on file. Thomas Giron MD [facility] [place] Fox is a 75 year old who [...] Name Type Priority Associated Diagnoses Order S [facility] ADULT DERMATOLOGY Referral Routine Skin lesion Expected: 03/06/2021 REFERRAL (Approximate), Expires: 2021 documented as of this encounter Visit Diagnoses Diagnosis Skin lesion - Primary Unspecified disorder of skin and subcuta neous tissue documented in this encounter Care Teams Biostatistics Professor Relationship Specialty Start Date End Date Thomas Singleton MD PCP - General Internal Medicine 01/10/21 07/08/21 [address] [place] [address] Adonis Grullon, Assigned Neuroscience 11/29/20 PA-C Provider [address] [facility] [address] [place], [place] [phone] Ruddy Giron, Assigned Musculoskeletal 01/28/21 DPM Provider [address] [facility] [address] [place] [address] Thomas Singleton MD Assigned PCP 02/25/21 06/23/21 [address] [place] [phone] documented as of this encounter
--- OUTSIDE RECORDS SUMMARY | 2022-07-19 12:13 | XMS_ITS | Encounter Summary ---
:1945 Author Organization [place] Address [address] [facility] [place] [address] Care Team Providers Name Role Phone Adonis Grullon Keon GREENE Unavailable MackRuddy Felipe DPM Unavailable Thomas Giron MD Primary Care Provider Thomas Giron MD Unavailable Reason for Visit Reason Comments Medication Refill Encounter Details Date Type Department Care Team Description 11/05/2021 Refill [facility] Thomas Singleton MD Medication Refill [place] [address] [place] [address] [phone] [place] [address] [phone] Social History Tobacco Use Types Packs/Day Years Used Date Smoking Tobacco: Never Cigarettes 0 0 Cigars Smokeless Tobacco: Never Alcohol Use Standard Drinks/Week Comments No 0 (1 standard drink = 0.6 oz pure not fo r about 35 years (as of 2014) alcohol) Sex Assigned at Date Recorded Not on file documented as of this encounter Miscellaneous Notes Telephone Encounter - Shrery Beavers RN - 11/05/2021 5:39 PM CST Prescription approved per [facility] Refill Protocol. Sherry Booker RN EP Triage D TIRE FINISHER documented in this encounter Plan of Treatment Not on filedocumented as of this encounter Visit Diagnoses Diagnosis Benign essential hypertension Essential hypertension, benign documented in this encounter Care Teams Bar Host Relationship Specialty Start Date End Date Thomas Giron MD PCP - General Internal Medicine 07/09/[address] [place], [place] [address] Adonis Grullon, Assigned Neuroscience 11/29/20 PA-C Provider [address] [place] [phone] Ruddy Giron, Assigned Musculoskeletal 01/28/21 DPM Provider [address] [facility] [address] [place] [address] Thomas Giron MD Assigned PCP 06/24/[address] [place] [address] documented as of this encounter
--- OUTSIDE RECORDS SUMMARY | 2022-07-19 12:13 | XMS_ITS | Encounter Summary ---
:1945 Author Organization [place] Address [address] [facility] [place] [address] Care Team Providers Name Role Phone RichaAdonis perez Keon GREENE Unavailable Ruddy Giron DPM Unavailable Thomas Giron MD Primary Care Provider Thomas Giron MD Unavailable Reason for Visit Reason Comments Medication Refill Encounter Details Date Type Department Care Team Description 05/19/2022 Refill [facility] Thomas Giron MD Medication Refill [place] [address] [facility] [address] [facility], [address] [place] [address] [place] [address] [phone] Social History Tobacco Use Types Packs/Day Years [...] No future appointment scheduled. Prescription approved per [facility] Refill Protocol. Agralogicst message sent. Camilla Gastelum POWDERER MSN [facility] documented in this encounter Plan of Treatment Not on filedocumented as of this encounter Visit Diagnoses Diagnosis Routine general medical examination at a health care facility documented in this encounter Care Teams Manager Primary Care Relationship Specialty Start Date End Date Thomas Giron MD PCP - General Internal Medicine 07/09/[address] [place] [address] Adonis Grullon, Assigned Neuroscience 11/29/20 PA-C Provider [address] [place] [phone] Ruddy Giron, Assigned Musculoskeletal 01/28/21 DPM Provider [address] [facility] [address] [place], [place] [address] Thomas Giron MD Assigned PCP 06/24/[address] [place] [phone] documented as of this encounter
--- OUTSIDE RECORDS SUMMARY | 2022-07-19 12:13 | XMS_ITS | Encounter Summary ---
:1945 Author Organization [place] Address [address] [facility] [place] [address] Care Team Providers Name Role Phone Juan José Michelle MD Primary Care Provider Adonis Grullon PA-C Unavailable Adonis Grullon PA-C Unavailable Thomas Singleton MD Unavailable Thomas Singleton MD Primary Care Provider Reason for Visit Reason Comments Medication Refill Encounter Details Date Type Department Care Team Description 01/08/2021 Refill [facility] Juan José Michelle MD Medication Refill [place] [address] [facility] 65[address] [facility], [address] [place] [address] [place] [address] [phone] Social History Tobacco Use Types Packs/Day Years Used Date Smoking Tobacco: Never Cigars Smokeless Tobacco: Never Alcohol Use Standard Drinks/Week Comments No 0 (1 standard drink = 0.6 oz pure not fo r about 35 years (as of 2014) alcohol) Sex Assigned at Date Recorded Not on file documented as of this encounter Miscellaneous Notes Telephone Encounter - Tran Pope N - 01/09/2021 1:40 PM CDT Pt established care with Dr. Singleton at [facility] Telephone Encounter - Penny Flores, RN - 01/08/2021 4:30 PM CDT Medication [...] benign documented in this encounter Care Teams Gas Analyst Relationship Specialty Start Date End Date Juan José Michelle MD PCP - General Internal Medicine 05/08/15 01/09/21 Thomas Singleton MD PCP - General Internal Medicine 01/10/21 07/08/21 [address] [place] [phone] Adonis Grullon, Assigned Neuroscience 11/29/20 PA-C Provider [address] [place], [place] [phone] Adonis Grullon, Assigned Sleep Provider 11/29/20 02/24/21 PA-C [address] [place], [place] [phone] Thomas Singleton MD Assigned PCP 12/31/20 02/07/21 [address] [place] [phone] documented as of this encounter
--- OUTSIDE RECORDS SUMMARY | 2022-07-19 12:13 | XMS_ITS | Clinical Summary ---
:1945 Author Organization [place] Address [address] [facility] [place] [address] Care Team Providers Name Role Phone Adonis Gurllon PA-C Unavailable Ruddy Giron DPM Unavailable Thomas Giron MD Primary Care Provider Thomas Giron MD Unavailable Allergies No known active allergies Medications Medication Sig Dispensed Refills Start Date End Date Status order for DME Equipment being ordered: CPAP 0 Active Patient Ruddy Calhoun was set up at [facility] on May 25, 2015. Patient received a [...] up on TBD with Chip Antonio MAI dorzolamide-timolol INSTILL 1 DROP INTO 2 10/29/2018 Active (COSOPT) 2-0.5 % BOTH EYES TWICE ophthalmic solution DAILY lisinopril-hydrochlo TAKE 1 TABLET BY 90 tablet 1 11/05/2021 Active rothiazide MOUTH EVERY DAY (ZESTORETIC) 20-25 MG tabletIndications: Benign essential hypertension finasteride TAKE 1 TABLET (5 90 tablet 0 05/21/2022 Active (PROSCAR) 5 MG MG) BY MOUTH DAILY tabletIndications: PATIENT NEEDS TO Routine general SCHEDULE medical examination APPOINTMENT at a health care facility allopurinol TAKE 1 TABLET BY 90 tablet 0 05/22/2022 Active (ZYLOPRIM) 300 MG MOUTH EVERY DAY tabletIndications: Idiopathic chronic gout of multiple sites without tophus triamterene-HCTZ 5-2 PER INSUR. TAKE 90 capsule 0 06/06/2022 Active (DYAZIDE) 37.5-25 MG 1 CAPSULE BY MOUTH capsuleIndications: EVERY DAY Benign essential hypertension Active Problems Problem Noted Date Morbid obesity 11/13/2020 Routine general medical examination at a health care acility 01/26/2019 Idiopathic chronic gout of multiple sites [...] 05/17/2015 Overview: Problem list name updated by topher p sharlene. Provider to review Essential hypertension 05/08/2015 Resolved [...] Cigarettes 0 0 Cigars Smokeless Tobacco: Never Tobacco Cessation: Counseling [...] history exists MEDICARE ANNUAL WELLNESS 06/05/2022 06/05/2021, 03/29/2020, VISIT 01/26/2019, Additional history exists COLORECTAL CANCER SCREENING 06/18/2022 FIT 06/18/2022 06/18/2021, 02/01/2019, 05/15/2017 DTAP/TDAP/TD IMMUNIZATION 09/20/2024 09/20/2014, 12/12/2008 , (6 - Td or Tdap) 12/19/2005, Additional history exists ADVANCE CARE PLANNING 06/05/2026 06/05/2021, 04/22/2020 LIPID 06/05/2026 06/05/2021, 03/29/2020, 01/26/2019, Additional history exists IPV IMMUNIZATION Aged Out 05/14/2000 No longer eligi ble based on patient 's age to complete this topic HEPATITIS B IMMUNIZATION Completed 03/30/2001, 06/16/2000, 05/14/2000 MENINGITIS IMMUNIZATION Aged Out 03/27/2012, 04/09/2005, No longer eligible 06/16/2000 based on patient 's age to complete this topic Pneumococcal Vaccine: 65+ Completed 09/20/2014, 03/27/2012 Years Medical Devices Implanted Type Area Continuous Mining Machine Operator Device Shelf Model / Identifier Expiration Serial / Lot Date 5.5mm Footprint Suture [place] Left: [employer] 01/03/2021 [id number] / Implanted: Qty: 1 on 12/09/2018 by Ammy Grigsby MD at [facility] / [id number] Insurance Payer Benefit Plan / Subscriber ID Effective Dates Phone Addre ss Type Group BCBS BCBS MEDICARE [id number] 2018-Luis Miguel [phone] [address] [address] Medicare ADVANTAGE t 0 [place] [id number] Care Teams Health Promotion Specialist Relationship Specialty Start Date End Date Thomas Giron MD PCP - General Internal Medicine 07/09/[address] [place] [address] Adonis Grullon, Assigned Neuroscience 11/29/20 PA-C Provider [address] [place] [phone] Ruddy Giron, Assigned Musculoskeletal 01/28/21 DPM Provider [address] [facility] [address] [place] [address] Thomas Giron MD Assigned PCP 06/24/[address] [place] [id number]
--- OUTSIDE RECORDS SUMMARY | 2022-07-19 12:13 | XMS_ITS | Encounter Summary ---
:1945 Author Organization [place] Address [address] [place] [address] Care Team Providers Name Role Phone Juan José Michelle MD Primary Care Provider Juan José Michelle MD Unavailable Reason for Referral Consultation (Routine) - Closed Specialty Diagnoses / Procedures Referred By Contact Refer red To Contact Diagnoses Allergy, initial encounter Thomas Singleton MD [facility] [address] [place] [address] [facility] [place], [place] [address] [facility] [address] [address] [place] [address] Fax: Referral ID Status Reason Start Date Expiration Date Visits Requ ested Visits Authorized [id number] Closed 11/13/2020 11/13/2021 1 1 [facility]Y CARE PEDIATRICIAN Reason for Visit Reason Comments Establish Care Encounter Details Date Type Department Care Team Description 11/13/2020 Office Visit [facility] [place] Thomas Singleton Essential hypertension (Primary Dx); Clinic Raj Mcclure MD Allergy, initial encounter; [place] [address] Morbid obesity (H) [address] [phone] Social History Tobacco Use Types Packs/Day Years [...] with No / Unsure 11/13/2020 9:41 AM PRIMARY CARE PEDIATRICIAN someone who was confirmed or suspected to have Coronavirus / COVID-19? documented as of this encounter Last Filed Vital Signs Vital Sign Reading Time Taken Comments Blood Pressure 116/66 11/13/2020 9:50 AM PRIMARY CARE PEDIATRICIAN Pulse 73 11/13/2020 9:50 AM PRIMARY CARE PEDIATRICIAN Temperature 36.7 ??C (98.1 ??F) 11/13/2020 9:50 AM PRIMARY CARE PEDIATRICIAN Respiratory Rate 15 11/13/2020 9:50 AM PRIMARY CARE PEDIATRICIAN Oxygen Saturation 96% 11/13/2020 9:50 AM PRIMARY CARE PEDIATRICIAN Inhaled Oxygen Concentration - - Weight 103.6 kg (228 lb 4.8 oz) 11/13/2020 9:50 AM PRIMARY CARE PEDIATRICIAN Height 167.6 cm (5' 6) 11/13/2020 9:50 AM PRIMARY CARE PEDIATRICIAN Body Mass Index 36.85 11/13/2020 9:50 AM PRIMARY CARE PEDIATRICIAN documented in this encounter Progress Notes Thomas [...] 03/15/2021) for Physical Exam. Thomas Singleton MD [facility] is a 75 year old who presents for the following health issues HPI New Patient/Transfer of Care- previous care at [facility] Other concerns: 1. Patient would like to [...] changes PSYCH: mentation appears normal, affect normal/bright ARY CARE PEDIATRICIAN documented in this encounter Plan of Treatment Scheduled Referrals Name Type Priority Associated Diagnoses Order S chedule ALLERGY/ASTHMA ADULT Referral Routine Allergy, initial Ord ered: 11/13/2020 REFERRAL encounter documented as of this encounter Visit Diagnoses Diagnosis Essential hypertension - Primary Unspecified essential hypertension Allergy, initial encounter Morbid obesity (H) Morbid obesity documented in this encounter Care Teams Supervisor Grower Relationship Specialty Start Date End Date Juan José Michelle MD PCP - General Internal Medicine 05/08/15 01/09/21 Juan José Michelle MD Assigned PCP 07/26/16 12/30/20 [address] [place], [place] [phone] documented as of this encounter
--- OUTSIDE RECORDS SUMMARY | 2022-07-19 12:13 | XMS_ITS | Encounter Summary ---
:1945 Author Organization [place] Address [address] [facility] [place] [address] Care Team Providers Name Role Phone Juan José Michelle MD Primary Care Provider Juan José Michelle MD Unavailable Adonis Grullon PA-C Unavailable Adonis Grullon PA-C Unavailable Reason for Visit Reason Comments Medication Refill Encounter Details Date Type Department Care Team Description 12/22/2020 Refill [facility] Juan José Michelle MD Medication Refill [place] [address] [facility] 65[address] [facility], [address] [place] [address] [place] [address] [phone] Social History Tobacco Use Types Packs/Day Years [...] facility documented in this encounter Care Teams Wind Energy Technician Relationship Specialty Start Date End Date Juan José Michelle MD PCP - General Internal Medicine 05/08/15 01/09/21 Juan José Michelle MD Assigned PCP 07/26/16 12/30/20 [address] [place] [phone] Adonis Grullon, Assigned Neuroscience 11/29/20 JC Provider [address] [place] [id number] Adonis Grullon, Assigned Sleep Provider 11/29/20 02/24/21 JC [address] [place] [id number] documented as of this encounter
--- OUTSIDE RECORDS SUMMARY | 2022-07-19 12:13 | XMS_ITS | Encounter Summary ---
:1945 Author Organization [place] Address [address] [facility] [place] [address] Care Team Providers Name Role Phone Adonis Grullon Keon GREENE Unavailable MackRuddy Felipe DPM Unavailable Thomas Giron MD Primary Care Provider Thomas Giron MD Unavailable Reason for Visit Reason Comments Medication Refill Encounter Details Date Type Department Care Team Description 11/05/[address] [facility] Thomas Giron MD Medication Refill [place] [address] [facility] 65[address] [facility], [address] [place] [address] [place] [address] [phone] Social History Tobacco Use Types Packs/Day Years [...] 11/05/2021 5:39 PM CST Prescription approved per [facility] Refill Protocol. Sherry Booker RN EP Triage T CHANGER documented in this encounter Plan of Treatment Not on filedocumented as of this encounter Visit Diagnoses Diagnosis Benign essential hypertension Essential hypertension, benign documented in this encounter Care Teams Fixture Maker Relationship Specialty Start Date End Date Thomas Giron MD PCP - General Internal Medicine 07/09/[address] [place], [place] [phone] Adonis Grullon, Assigned Neuroscience 11/29/20 PA-C Provider [address] [place] [phone] Ruddy Giron, Assigned Musculoskeletal 01/28/21 DPM Provider [address] [facility] [address] [place] [address] Thomas Giron MD Assigned PCP 06/24/[address] [place] [address] documented as of this encounter
--- OUTSIDE RECORDS SUMMARY | 2022-07-19 12:13 | XMS_ITS | Encounter Summary ---
:1945 Author Organization [place] Address [address] [place] [address] Care Team Providers Name Role Phone Adonis Grullon Keon GREENE Unavailable Thomas Singleton MD Primary Care Provider Ruddy Giron DPM Unavailable Thomas Singleton MD Unavailable Reason for Visit Reason Comments Physical Fasting Encounter Details Date Type Department Care Team Description [facility] for preventative adult health care examination (Primary Dx); Clinic Angy WISDOM Encounter for screening for malignant ne oplasm of prostate ; [address] Chronic gout without tophus, unspecified cause, unspecified site; [facility], [address] Encounter for Medicare annual wellness e xa [place] [address] [place] [address] [phone] Social History Tobacco Use Types Packs/Day Years [...] hear better with??one ear than the other [employer] last reviewed this educational content on 09/15/2019 ?? [phone] [employer]. All rights reserved. This information is not [...] Your urine gets cloudy or smells bad [employer] last reviewed this educational content on 09/15/2019 ?? [phone] [employer]. All rights reserved. This information is not [...] following health maintenance items are reviewed in [facility] and correct as of today: Health [...] normal/bright Diagnostic Test Results: Labs reviewed in [facility] ASSESSMENT / PLAN: ICD-10-CM 1. Encounter for [...] Prophylaxis Lung CA Screening Thomas Giron MD [facility] Identified Health Risks: ?? The patient was [...] City/State/ZIP Code Phon [place] [address] Lab [address] [facility] J Building, Room 3-580 [place] [address], Lab [facility] [address] [facility], Room 3580 CBC with platelets and differential [...] LAB - BLOOD ORDERABLES Performing Organization Address City/[facility]/ZIP [facility] [place] [address] Lab [address] [facility], [address] [place] [address], [facility] [address] [facility], [address] Uric acid (06/05/2021 8:35 AM CDT) P athologist Signature Uric Acid 5.3 3.5 - 7.2 06/05/2021 [facility] mg/dL 2:30 PM CDT Specimen Anatomical Collection Method / Collection Time Recei samara Time (Source) Location / Volume Laterality Blood STRUCTURE OF RIGHT Venipuncture / 06/05/2021 8:35 /2 09/2020 8:35 UPPER LIMB / Unknown AM CDT AM CDT Unknown Thomas Giron MD LAB - BLOOD ORDERABLES Performing Organization Address City/[facility]/ZIP [facility] Phon e Number [facility] [place], [place] [phone] [place] [facility] [address] [place] [address] Lab (no room number, 1st floor of clinic) [facility] [place], [place] [phone] [place] [phone] [place] [facility] [address] [place] [address] Lab (no room number, 1st floor of [...] / Unknown AM CDT AM CDT Unknown Tohmas Giron MD LAB - BLOOD ORDERABLES Performing Organization Address City/State/ZIP Code Phon e Number [facility] [place], [place] [phone] [place] [facility] [address] Lab (no room number, 1st floor of clinic) [facility] [place], [place] [phone] [place] [address], [facility] [place] [facility] [address] Lab (no room number, 1st floor of clinic) (ABNORMAL) Lipid panel reflex to direct LDL Fasting (06/05/2021 8:35 AM CDT) [facility] gist Method Time Signature Cholesterol 180 [...] LAB - BLOOD ORDERABLES Performing Organization Address [facility] Phon e Number [facility] [place], [place] [phone] [place] [facility] [address] [place] [address] Lab (no room number, 1st floor of clinic) [facility] [place], [place] [phone] [facility] [address], [facility] [place] [facility] [address] Lab (no room number, 1st floor of [facility]) TSH with free T4 reflex (06/05/2021 8:35 [...] LAB - BLOOD ORDERABLES Performing Organization Address [facility] Phon e Number [facility] [place], [place] [phone] [place] [facility] [address] [place] [address] Lab (no room number, 1st floor of clinic) [facility] [place], [place] [phone] [facility] [phone], [facility] [place] [facility] [address] Lab (no room number, 1st floor [...] STRUCTURE OF RIGHT Venipuncture / 06/05/2021 8:35 09/09/2020 8:35 UPPER LIMB / Unknown AM CDT AM CDT Unknown Thomas Giron MD LAB - BLOOD ORDERABLES Performing Organization Address City/State/ZIP Code Phon e Number [facility] - [place], [place] [phone] [place] [facility] [address] Lab (no room number, 1st floor of clinic) [facility] [place], [place] [phone] Clinic [place] [address], [facility] [place] [facility] [address] Lab (no room number, 1st floor [...] facility documented in this encounter Care Teams Caustic Liquor Maker Relationship Specialty Start Date End Date Thomas Singleton MD PCP - General Internal Medicine 01/10/21 07/08/21 [address] [place] [phone] Adonis Grullon, Assigned Neuroscience 11/29/20 PA-C Provider [address] [place], [place] [phone] Ruddy Giron, Assigned Musculoskeletal 01/28/21 DPM Provider [address] [facility] [address] [place], [place] [address] Thomas Singleton MD Assigned PCP 02/25/21 06/23/[address] [place] [phone] documented as of this encounter
--- OUTSIDE RECORDS SUMMARY | 2022-07-19 12:13 | XMS_ITS | Encounter Summary ---
:1945 Author Organization [place] Address [address] [facility] [place] [address] Care Team Providers Name Role Phone Adonis Grullon Keon GREENE Unavailable MackRuddy Felipe DPM Unavailable Thomas Giron MD Primary Care Provider Thomas Giron MD Unavailable Reason for Visit Reason Comments Medication Refill Encounter Details Date Type Department Care Team Description 05/13/2022 Refill [facility] Thomas Giron MD Medication Refill [place] [address] [facility] 6545 [facility], [address] [place] [address] [place] [address] [phone] Social History Tobacco Use Types Packs/Day Years [...] 05/14/2022 4:01 PM CDT Prescription approved per [facility] Refill Protocol. Camilla Gastelum RN BSN MSN [facility] [place] documented in this encounter Plan of Treatment Not on filedocumented as of this encounter Visit Diagnoses Diagnosis Routine general medical examination at a health care facility documented in this encounter Care Teams House Principal Relationship Specialty Start Date End Date Thomas Giron MD PCP - General Internal Medicine 07/09/[address] [place] [address] Adonis Grullon, Assigned Neuroscience 11/29/20 PA-C Provider [address] [place] [phone] Ruddy Giron, Assigned Musculoskeletal 01/28/21 DPM Provider [address] [facility] [address] [place], [place] [address] Thomas Giron MD Assigned PCP 06/24/[address] [place] [address] documented as of this encounter
--- OUTSIDE RECORDS SUMMARY | 2022-07-19 12:13 | XMS_ITS | Encounter Summary ---
:1945 Author Organization [place] Address [address] [facility] [place] [address] Care Team Providers Name Role Phone Adonis [...] on filedocumented in this encounter Care Teams Commission Sales Associate Relationship Specialty Start Date End Date Thomas Singleton MD PCP - General Internal Medicine 01/10/21 07/08/21 [address] [place] [address] Adonis Grullon, Assigned Neuroscience 11/29/20 PA-C Provider [address] [place] [address] Ruddy Giron, Assigned Musculoskeletal 01/28/21 DPM Provider [address] [facility] [address] [place] [address] Thomas Singleton MD Assigned PCP 02/25/21 06/23/[address] [place] [phone] documented as of this encounter
--- OUTSIDE RECORDS SUMMARY | 2022-07-19 12:13 | XMS_ITS | Encounter Summary ---
:1945 Author Organization [place] Address [address] [facility] [place] [address] Care Team Providers Name Role Phone Juan [...] with No / Unsure 11/13/2020 9:41 AM HOSE SUSPENDER CUTTER someone who was confirmed or suspected to have Coronavirus / COVID-19? documented as of this encounter Plan of Treatment Not on filedocumented as of this encounter Visit Diagnoses Not on filedocumented in this encounter Care Teams Manager Language Relationship Specialty Start Date End Date Juan José Michelle MD PCP - General Internal Medicine 05/08/15 01/09/21 Juan José Michelle MD Assigned PCP 07/26/16 12/30/20 [address] [place] [phone] documented as of this encounter
--- OUTSIDE RECORDS SUMMARY | 2022-07-19 12:13 | XMS_ITS | Encounter Summary ---
:1945 Author Organization [place] Address [address] [place] [address] Care Team Providers Name Role Phone Adonis Grullon PA-C Unavailable Ruddy Giron DPM Unavailable Thomas Giron MD Primary Care Provider Thomas Giron MD Unavailable Encounter Details Date Type Department Care Team Description 07/09/2021 Telephone [facility] Thomas Singleton MD [address] [phone] (Wo rk) Social History Tobacco Use Types [...] on filedocumented in this encounter Care Teams Utility Engineer Relationship Specialty Start Date End Date Thomas Giron MD PCP - General Internal Medicine 07/09/21 [address] [place] [address] Adonis Grullon, Assigned Neuroscience 11/29/20 PA-C Provider [address] [place] [phone] Ruddy Giron, Assigned Musculoskeletal 01/28/21 DPM Provider [address] [facility] [address] [place], [place] [phone] Thomas Giron MD Assigned PCP 06/24/21 [address] [place] [address] documented as of this encounter
--- OUTSIDE RECORDS SUMMARY | 2022-07-19 12:13 | XMS_ITS | Encounter Summary ---
:1945 Author Organization [place] Address [address] [facility] [place] [address] Care Team Providers Name Role Phone Adonis Grullon PA-C Unavailable Thomas Singleton MD Primary Care Provider Ruddy Giron DPM Unavailable Thomas Singleton MD Unavailable Encounter Details Date Type Department Care Team Description 06/04/2021 Virtual Visit [facility] Adonis Grullon DIANNE (ob structive sleep apnea) (Primary Dx); [facility] Insomnia, unspecified type [address] [phone] Social History Tobacco Use Types Packs/Day Years [...] Ingrid JA; Benjie JR; Francesca JF; Armani PATRICIO; Sarai SG; Chong MEDRANO. Surgical modifications of the upper airway for obstructive sleep apnea in adults: a systematic review and meta-analysis. SLEEP 2010;33(10):6223-1728. Riley Hernandez. Hypopharyngeal surgery in obstructive sleep apnea: an evidence-based medicine review. Arch Otolaryngol Head Neck Surg. 2005;132(2):206-13. 3. Louis YH1, Daniela Y, Brayan GOMEZ. The efficacy of anatomically based multilevel surgery for obstructive sleep apnea. Otolaryngol Head Neck Surg. 2002;129(4):327-35. 4. Bibi Johnson. Hypopharyngeal Surgery in Obstructive Sleep Apnea: An Evidence-Based Medicine Review. Arch Otolaryngol Head Neck Surg. 2005;132(2):206-13. 5. Vitaly PJ et al. Upper-Airway Stimulation for Obstructive Sleep [...] bathroom, use a nightlight Online Programs ??? www.SpinSnap.me (pronounced shut eye). There is a fee for this program. Enter the code ???Mobile?? if you decide to enroll in this program. ??? www.WriteReader ApSIO.[employer] (pronounced sleep ee oh). There is a fee for this program. Enter the code ???Mobile?? if you decide to enroll in this program. Suggested Resources Insomnia Treatment Books ??? Overcoming Insomnia by Rudolph Nascimento and Michelle Laguerre (2007) ??? No More Sleepless Nights by Ranjit Mejía and Lisa Lehman (1995) ??? Say Alison to Insomnia by Iggy Deluca (2009) ??? The Insomnia Workbook by Valarie Garcia and Abdi Maloney (2008) ??? The Insomnia Answer by Terry Oliva [...] relax. This list is for information only. Mobile is notresponsible for the quality of services or the actions of any person or organization. Progressive Muscle Relaxation (PMR): ??? http://www.PIERIS Proteolab/tygpwertqms-gbwqfl-vgsuyovmnl-exercise.html ??? http://studentsupport.francisc[facility] dyer/counseling/resources/self-help/relaxat dgl-vre-arwilg-management/ Deep Breathing Exercises: ??? http://www.PIERIS Proteolab/breathing-awareness.html Meditation: ??? www.[place] ??? www.str-fpnfqj-vknttbkjtw-site.com You may have to pay for some of these resources. Guided Imagery: ??? http://www.PIERIS Proteolab/nwfair-zqoeobm-arbzxcr.html ??? http://Playtox/Cephasonics/qgqnkrhnvj-qegqaq-tfqwnmr/ Consider phone apps such as: Calm, Headspace or Insight Timer. Counseling / Behavioral Health [facility]al [facility] Services Visit www.[facility].org or call [phone] to find a clinic close to you. Or call [phone] for Mobile Counseling Services. documented in this encounter Progress Notes Adonis Grullon PA-C - 06/04/2021 3:00 PM CDT Brayan is a 75 year old who is being evaluated via a billable video visit. How would you like to obtain your AVS? MyChart If the video visit is dropped, the invitation should be resent by: Text to cell phone: [phone] Will anyone else be joining your video visit? Video Start Time: 3:03 PM Video-Visit Details Type of service: Video Visit Video End Time:3:38 PM Originating Location (pt. Location): Home Distant Location (provider location): [facility] Platform used for Video Visit: HipGeo CPAP Follow-Up Visit: Date on this visit: 06/04/2021 Ruddy Calhoun has a follow-up visit today [...] since sleep study: 230 lbs. 236# in 2018 Bedtime: 10-11:30 PM. Wake time: 8 AM. [...] type documented in this encounter Care Teams Home Economist Consumer Service Relationship Specialty Start Date End Date Thomas Singleton MD PCP - General Internal Medicine 01/10/21 07/08/[address] [place] [phone] Adonis Grullon, Assigned Neuroscience 11/29/20 PA-C Provider [address] [place], [place] [phone] Ruddy Giron, Assigned Musculoskeletal 01/28/21 DPM Provider [address] [facility] [address] [place] [address] Thomas Singleton MD Assigned PCP 02/25/21 06/23/[address] [place] [phone] documented as of this encounter
--- OUTSIDE RECORDS SUMMARY | 2022-07-19 12:13 | XMS_ITS | Encounter Summary ---
:1945 Author Organization [place] Address [address] [facility] [place] [address] Care Team Providers Name Role Phone Adonis [...] on filedocumented in this encounter Care Teams Metallographer Relationship Specialty Start Date End Date Thomas Singleton MD PCP - General Internal Medicine 01/10/21 07/08/21 [address] [place] [address] Adonis Grullon, Assigned Neuroscience 11/29/20 PA-C Provider [address] [place] [address] Ruddy Giron, Assigned Musculoskeletal 01/28/21 DPM Provider [address] [facility] [address] [place] [address] Thomas Singleton MD Assigned PCP 02/25/21 06/23/21 [address] [place] [phone] documented as of this encounter
--- OUTSIDE RECORDS SUMMARY | 2022-07-19 12:13 | XMS_ITS | Encounter Summary ---
:1945 Author Organization [place] Address [facility] [place] [address] Care Team Providers Name Role Phone Adonis Grullon PA-C Unavailable MackRuddy chicas Felipe DPNahum Unavailable Thomas Giron MD Primary Care Provider Thomas Giron MD Unavailable Reason for Visit Reason Onset Date Comments Needs prescription for machine 11/26/2021 Encounter Details Date Type Department Care Team Description 11/26/2021 Telephone M [facility] Coordinator, Ur Needs p rescription for [facility] machine [address] [phone] Social History Tobacco Use Types [...] wanted the order forwarded somewhere other than [facility], call the clinic so we can know [...] be reached at: Home number on file [phone] (home) Best Time: ANY Can we leave a detailed message on this number? YES Call taken on 11/26/2021 at 1:34 PM by Bibiana Ferguson documented in this encounter Plan of Treatment Not on filedocumented as of this encounter Visit Diagnoses Diagnosis DIANNE (obstructive sleep apnea) - Primary Obstructive sleep apnea (adult) (pediatr ic) documented in this encounter Care Teams Cell Preparer Relationship Specialty Start Date End Date Thomas Giron MD PCP - General Internal Medicine 07/09/[address] [place] [address] Adonis Grullon, Assigned Neuroscience 11/29/20 JC Provider [address] [place] [phone] Ruddy Giron, Assigned Musculoskeletal 01/28/21 DPM Provider [address] [facility] [address] [place] [address] Thomas Giron MD Assigned PCP 06/24/[address] [place] [address] documented as of this encounter
--- OUTSIDE RECORDS SUMMARY | 2022-07-19 12:14 | XMS_ITS | Encounter Summary ---
:1945 Demographics Address [email or web address] [place] [address] Mobile Phone Email Address Email Address Email Address Preferred Language Guyanese Marital Status Adventism Affiliation Unknown Race White Ethnic Group Unknown Author Organization [place] Address [address] [facility] [place] [address] Care Team Providers Name Role Phone Juan José Michelle MD Primary Care Provider Juan José Michelle MD Unavailable Reason for Visit Reason Comments Medication Refill 2 meds Encounter Details Date Type Department Care Team Description 06/09/2019 Refill [facility] Juan José Michelle MD Medication Refill ([address] [place] [address] meds ) [address] [facility] [address] [place] [phone] (Wo rk) Social History Tobacco Use Types [...] benign documented in this encounter Care Teams Associate Programmer Relationship Specialty Start Date End Date Juan José Michelle MD PCP - General Internal Medicine 05/08/15 01/09/21 Juan José Michelle MD Assigned PCP 07/26/16 12/30/20 [address] [place] [phone] documented as of this encounter
--- OUTSIDE RECORDS SUMMARY | 2022-07-19 12:14 | XMS_ITS | Encounter Summary ---
:1945 Author Organization [place] Address [address] [facility] [place] [address] Care Team Providers Name Role Phone Juan [...] on filedocumented in this encounter Care Teams Procurement Forester Relationship Specialty Start Date End Date Juan José Michelle MD PCP - General Internal Medicine 05/08/15 01/09/21 Juan José Michelle MD Assigned PCP 07/26/16 12/30/20 [address] [place] [phone] documented as of this encounter
--- OUTSIDE RECORDS SUMMARY | 2022-07-19 12:14 | XMS_ITS | Encounter Summary ---
:1945 Author Organization [place] Address [address] [facility] [place] [address] Care Team Providers Name Role Phone Juan [...] on filedocumented in this encounter Care Teams Yard Associate Relationship Specialty Start Date End Date Juan José Michelle MD PCP - General Internal Medicine 05/08/15 01/09/21 Juan José Michelle MD Assigned PCP 07/26/16 12/30/20 [address] [place] [phone] documented as of this encounter
--- OUTSIDE RECORDS SUMMARY | 2022-07-19 12:14 | XMS_ITS | Encounter Summary ---
:1945 Author Organization [place] Address [address] [facility] [place] [address] Care Team Providers Name Role Phone Juan José Michelle MD Primary Care Provider Juan José Michelle MD Unavailable Reason for Visit Reason Comments Medication Refill Encounter Details Date Type Department Care Team Description 06/10/2019 Refill [facility] Juan José Michelle MD Medication Refill [place] [address] [facility] 6545 [facility], [address] [place] [address] [place] [address] [phone] Social History Tobacco Use Types Packs/Day Years [...] 06/11/2019 11:12 AM CDT Prescription approved per [facility] Refill Protocol. Abbi Hawthorne RN Telephone Encounter - Kanika Broderick - [...] benign documented in this encounter Care Teams Rod Puller And Coiler Relationship Specialty Start Date End Date Juan José Michelle MD PCP - General Internal Medicine 05/08/15 01/09/21 Juan José Michelle MD Assigned PCP 07/26/16 12/30/20 [address] [place] [phone] documented as of this encounter
--- OUTSIDE RECORDS SUMMARY | 2022-07-19 12:14 | XMS_ITS | Encounter Summary ---
:1945 Author Organization [place] Address [address] [facility] [place] [address] Care Team Providers Name Role Phone Juan José Michelle MD Primary Care Provider Juan José Michelle MD Unavailable Encounter Details Date Type Department Care Team Description 03/31/2020 Telephone [facility] Juan José Michelle MD [place] [address] [facility] 6545 [facility], [address] [place] [address] [place] [address] [phone] Social History Tobacco Use Types Packs/Day Years [...] on filedocumented in this encounter Care Teams Timber Bucker Relationship Specialty Start Date End Date Juan José Michelle MD PCP - General Internal Medicine 05/08/15 01/09/21 Juan José Michelle MD Assigned PCP 07/26/16 12/30/20 [address] [place], [place] [phone] documented as of this encounter
--- OUTSIDE RECORDS SUMMARY | 2022-07-19 12:14 | XMS_ITS | Encounter Summary ---
:1945 Author Organization [place] Address [address] [facility] [place] [address] Care Team Providers Name Role Phone Juan José Michelle MD Primary Care Provider Juan José Michelle MD Unavailable Encounter Details Date Type Department Care Team Description 04/01/2019 Documentation Only [facility] [place] Grullon ett Keon, [facility] [address] [facility] [address] [place] [address] [address] [place] [address] [place] [address] [phone] Social History Tobacco Use Types Packs/Day Years [...] doctor when he comes in. [facility] Stock Clerk documented in this encounter Plan of Treatment Not on filedocumented as of this encounter Visit Diagnoses Not on filedocumented in this encounter Care Teams Meat Grader Relationship Specialty Start Date End Date Juan José Michelle MD PCP - General Internal Medicine 05/08/15 01/09/21 Juan José Michelle MD Assigned PCP 07/26/16 12/30/20 [address] [place] [phone] documented as of this encounter
--- OUTSIDE RECORDS SUMMARY | 2022-07-19 12:14 | XMS_ITS | Encounter Summary ---
:1945 Author Organization [place] Address [address] [place] [address] Care Team Providers Name Role Phone Juan José Michelle MD Primary Care Provider Juan José Michelle MD Unavailable Encounter Details Date Type Department Care Team Description 03/15/2020 Telephone [facility] Juan José Michelle MD [place] [address] [facility] 65[address] [facility], [address] [place] [address] [place] [address] [phone] Social History Tobacco Use Types Packs/Day Years [...] encounter Miscellaneous Notes Telephone Encounter - Lianet Beck, DELIVERY MGR - 03/15/2020 1:06 PM CDT Panel Management [...] on filedocumented in this encounter Care Teams Oil Well Pumper Relationship Specialty Start Date End Date Juan José Michelle MD PCP - General Internal Medicine 05/08/15 01/09/21 Juan José Michelle MD Assigned PCP 07/26/16 12/30/20 [address] [place] [phone] documented as of this encounter
--- OUTSIDE RECORDS SUMMARY | 2022-07-19 12:14 | XMS_ITS | Encounter Summary ---
:1945 Author Organization [place] Address [address] [place] [address] Care Team Providers Name Role Phone Juan José Michelle MD Primary Care Provider Juan José Michelle MD Unavailable Adonis Grullon-Simeon Unavailable Adonis Grullon-Simeon Unavailable Thomas Singleton MD Unavailable Thomas Singleton MD Primary Care Provider Ruddy Giron DPM Unavailable Juan José Michelle MD Unavailable Thomas Singleton MD Unavailable Thomas Giron MD Primary Care Provider Thomas Giron MD Unavailable Reason for Visit Reason Comments Medication Refill lisinopril-hydrochlorothiazi de Encounter Details Date Type Department Care Team Description 09/02/2019 Refill [facility] Juan José Michelle MD Medication Refill [place] [address] (lisinopril-hydrochlorot [address] h[place]) [address] [place] [address] [phone] (Wo rk) Social History Tobacco Use Types [...] Alma Ott RN - 09/03/2019 10:55 AM FARO DEALER Routing refill request to provider for review/approval because: Anne Marie given x1 and patient did not follow up, please advise Patient needs to be seen because: Over due for routine visit. CONCEPCIÓN Gomez, RN Flex Workforce Triage DEALER Telephone Encounter - KeiElysia flores - 09/02/2019 11:13 AM CST Last Written [...] Labs Lab Test 01/26/19 1435 NA 140 DEALER documented in this encounter Plan of Treatment Not on filedocumented as of this encounter Visit Diagnoses Diagnosis Benign essential hypertension Essential hypertension, benign documented in this encounter Care Teams Natural Resource Technician Relationship Specialty Start Date End Date Juan José Michelle MD PCP - General Internal Medicine 05/08/15 01/09/21 Thomas Singleton MD PCP - General Internal Medicine 01/10/21 07/08/[address] [place] [address] [phone] Thomas Giron MD PCP - General Internal Medicine 07/09/[address] [place] [address] Juan José Michelle MD Assigned PCP 07/26/16 12/30/[address] [place] [address] Adonis Grullon, Assigned Neuroscience 11/29/20 PA-C Provider [address] [place], [place] [phone] Adonis Grullon, Assigned Sleep Provider 11/29/20 02/24/21 PA-C [address] [place], [place] [phone] Thomas Singleton MD Assigned PCP 12/31/20 02/07/[address] [place] [phone] Ruddy Giron, Assigned Musculoskeletal 01/28/21 DPM Provider [address] [facility] [address] [place] [address] Juan José Michelle MD Assigned PCP 02/08/21 02/24/21 [address] [place] [phone] Thomas Singleton MD Assigned PCP 02/25/21 06/23/[address] [place] [phone] Thomas Giron MD Assigned PCP 06/24/21 [address] [place] [address] documented as of this encounter
--- OUTSIDE RECORDS SUMMARY | 2022-07-19 12:14 | XMS_ITS | Encounter Summary ---
:1945 Author Organization [place] Address [address] [place] [address] Care Team Providers Name Role Phone Juan José Michelle MD Primary Care Provider Juan José Michelle MD Unavailable Reason for Visit Reason Comments Wellness Visit Encounter Details Date Type Department Care Team Description 03/29/2020 Office Visit [facility] Juan José Michelle, Calvin e general medical examination at a health care facility (Primary Dx); Clinic [place] WISDOM Screening for prostate cancer; [address] Screening for hypothyroidism; [facility], [address] [place] (obstructive sleep apnea); [place] [address] [place] 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 All rights reserved. Do you have sleep [...] for DME Equipment being ordered: CPAP Patient Otis Calhoun was set up at [facility] on May 25, 2015. Patient received a ResWeShow Airsense 10 Auto. Pressures were set at Auto 5 - 15 cm H2O. Patient???s ramp is 0 cm H2O for Off and FLEX/EPR is A Flex 2. Patient received a [employer] Mask name: Simplus Full Face mask Size [...] care and provided an AVS. The for Otis meets the Care Plan requirement.This Care Plan has been established and reviewed with the Patient. Counseling Resources: ATP IV Guidelines Pooled Cohorts Equation Calculator Breast Cancer Risk Calculator FRAX Risk Assessment ICSI Preventive Guidelines Dietary Guidelines for Americans, 2009 AppliLog's MyPlate ASA Prophylaxis Lung CA Screening Juan José Michelle MD [facility] Identified Health Risks: documented in this [...] this SCREENING AM CDT medical examination at [facility] are in a health care fa cility the results Vitamin D deficiency section . URIC ACID Routine 03/29/2020 11:33 Idiopathic chronic Resul ts for this AM CDT gout of multiple sites [facility] are in without tophus the results section. TSH WITH FREE T4 Routine 03/29/2020 11:33 Routine general Resu lts for this REFLEX AM CDT medical examination at [facility] are in a health care fa cility the results Screening for section. hypothyroidism PROSTATE SPECIFIC Routine 03/29/2020 11:33 Routine general Res ults for this ANTIGEN SCREEN AM CDT medical examination at [facility] are in a health care fa cility the results Screening for prostate secti on. cancer LIPID REFLEX TO Routine 03/29/2020 11:33 Routine general Resul ts for this DIRECT LDL PANEL AM CDT medical examination at [facility] are in a health care fa cility the results Hyperlipidemia LDL section. goal <130 COMPREHENSIVE Routine 03/29/2020 11:33 Routine general Results for this METABOLIC PANEL AM CDT medical examination at [facility] are in a health care fa cility the results Essential hypertension secti on. CBC WITH PLATELETS Routine 03/29/2020 11:33 Routine general Re sults for this AM CDT medical examination at [facility] harsh are in a health care fa cility the results Essential hypertension secti on. documented in this encounter Results Uric acid (03/29/2020 11:33 AM CDT) athologist Signature Uric Acid 5.1 3.5 - 7.2 03/31/2020 [place] mg/dL 12:28 PM CDT [facility] Specimen Anatomical Collection Method Collection Time Receive d Time (Source) Location / / Volume Laterality Blood specimen 03/29/2020 11:33 0 (specimen) AM CDT 11:35 AM CDT Juan José Michelle MD LAB - BLOOD ORDERABLES Performing Organization Address City/State/ZIP Code Phon e Number [facility] [address] [phone] [place] [address] [place] [address] [address], [facility] [phone] Prostate spec antigen screen (03/29/2020 11:33 AM CDT) athologist Signature PSA 0.44 0 - 4 ug/L 03/30/2020 [place] 12:49 PM CDT [facility] Comment: Assay Method: Chemiluminescence using Siemens [place] analyzer Specimen Anatomical Collection Method Collection Time Receive d Time (Source) Location / / Volume Laterality Blood specimen 03/29/2020 11:33 0 (specimen) AM CDT 11:35 AM CDT Juan José Michelle MD LAB - BLOOD ORDERABLES Performing Organization Address City/State/ZIP Code Phon e Number [facility] [address] [address] [facility] [address] [address], [place] [phone] TSH with free T4 reflex (03/29/2020 11:33 AM CDT) athologist Signature TSH 1.34 0.40 - 4.00 03/31/2020 [place] mU/L 12:28 PM CDT [facility] Specimen Anatomical Collection Method Collection Time Receive d Time (Source) Location / / Volume Laterality Blood specimen 03/29/2020 11:33 0 (specimen) AM CDT 11:35 AM CDT Juan José Michelle MD LAB - BLOOD ORDERABLES Performing Organization Address City/State/ZIP Code Phon e Number [facility] [address] [address] [place] [address] [place] [address], [place] [phone] Vitamin D Deficiency (03/29/2020 11:33 AM CDT) athologist Signature Vitamin D 58 20 - 75 03/30/2020 [facility] ug/L 12:08 PM CDT [place] [facility] Comment: Season, race, dietary intake, and treatm ent affect the concentration of 69-brsxctx-Foyzmmy D. Values may decreas e during winter [...] Organization Address City/State/ZIP Code Phon e Number [address] [address] [facility] Lipid panel reflex to direct LDL Fasting (03/29/2020 11:33 AM CDT) Analysis Performed At Patho logist Time Signature Cholesterol 146 <200 mg/dL 03/31/2020 [place] 12:28 PM CDT [facility] Triglycerides 74 <150 mg/dL 03/31/2020 [place] 12:28 PM CDT [facility] HDL Cholesterol 52 >39 mg/dL 03/31/2020 [place] 12:28 PM CDT [facility] LDL Cholesterol 79 <100 mg/dL 03/31/2020 [place] Calculated 12:28 PM CDT [facility] Comment: Desirable: <100 mg/dl Non HDL Cholesterol 94 <130 mg/dL 03/31/2020 12:28 PM CDT [facility] Specimen Anatomical Collection Method Collection Time Receive d Time (Source) Location / / Volume Laterality Blood specimen 03/29/2020 11:33 0 (specimen) AM CDT 11:35 AM CDT Juan José Michelle MD LAB - BLOOD ORDERABLES Performing Organization Address City/State/ZIP Code Phon e Number [facility] [address] [address] [phone] [facility] [address] [address], [facility] [phone] Comprehensive metabolic panel (03/29/2020 11:33 AM CDT) P athologist Signature Sodium 139 133 - 144 03/31/2020 [place] mmol/L 11:24 AM CDT [facility] Potassium 3.7 3.4 - 5.3 03/31/2020 [place] mmol/L 11:24 AM CDT [facility] Chloride 103 94 - 109 03/31/2020 [place] mmol/L 11:24 AM CDT [facility] Carbon Dioxide 28 20 - 32 03/31/2020 [place] mmol/L 12:07 PM CDT [facility] Anion Gap 8 3 - 14 03/31/2020 [place] mmol/L 12:07 PM CDT [facility] Glucose 94 70 - 99 03/31/2020 [place] mg/dL 12:07 PM T [facility] Urea Nitrogen 21 7 - 30 03/31/2020 [place] mg/dL 12:07 PM [facility] Creatinine 1.16 0.66 - 03/31/2020 [place] 1.25 mg/dL 12:07 PM T [facility] GFR Estimate 62 >60 03/31/2020 [place] mL/min/{1. 12:07 PM T [facility] 73_m2} [facility] Comment: Non GFR Calc Starting 09/01/2018, serum creatinine ba sed estimated GFR (eGFR) will be calculated using the Chronic Kidney Dise [facility] Epidemiology Collaboration (CKD-EPI) equation. GFR Estimate If 72 >60 mL/min/{1.73_m2} 03/31/2020 12 :07 PM [facility] Black [facility] Comment: GFR Calc Starting 09/01/2018, serum creatinine ba sed estimated GFR (eGFR) will be calculated using the Chronic Kidney Dise [facility] Epidemiology Collaboration (CKD-EPI) equation. Calcium 8.9 8.5 - 10.1 03/31/2020 12:07 PM [facility] mg/dL [facility] Bilirubin Total 0.6 0.2 - 1.3 mg/dL 03/31/2020 12:28 P M [facility] Albumin 3.6 3.4 - 5.0 g/dL 03/31/2020 12:28 PM [facility] Protein Total 7.3 6.8 - 8.8 g/dL 03/31/2020 12:28 PM F [facility] Alkaline Phosphatase 60 40 - 150 U/L 03/31/2020 12:28 PM [facility] ALT 35 0 - 70 U/L 03/31/2020 12:28 PM [facility] AST 20 0 - 45 U/L 03/31/2020 12:28 PM [facility] Specimen Anatomical Collection Method Collection Time Receive d Time (Source) Location / / Volume Laterality Blood specimen 03/29/2020 11:33 0 (specimen) AM CDT 11:35 AM CDT Juan José Michelle MD LAB - BLOOD ORDERABLES Performing Organization Address City/State/ZIP Code Phon e Number [facility] [address] [place] [address] [phone] [facility] [address] [place] [address] [facility] [address] [place] [address], [place] [phone] CBC with platelets (03/29/2020 11:33 AM CDT) P athologist Signature WBC 10.1 4.0 - 11.0 03/29/2020 [place] 10e9/L 1:12 PM CDT [facility]ICS [place] RBC Count 4.99 4.4 - 5.9 03/29/2020 [place] 10e12/L 1:12 PM CDT [facility] [place] Hemoglobin 15.5 13.3 - 03/29/2020 [place] 17.7 g/dL 1:12 PM CDT [facility] [place] Hematocrit 46.0 40.0 - 03/29/2020 [place] 53.0 % 1:12 PM CDT [facility] [place] MCV 92 78 - 100 03/29/2020 [place] fl 1:12 PM CDT [facility] [place] MCH 31.1 26.5 - 03/29/2020 [place] 33.0 pg 1:12 PM CDT [facility] [place] MCHC 33.7 31.5 - 03/29/2020 [place] 36.5 g/dL 1:12 PM CDT [facility] [place] RDW 14.8 10.0 - 03/29/2020 [place] 15.0 % 1:12 PM CDT [facility] [place] Platelet Count 224 150 - 450 03/29/2020 [place] 10e9/L 1:12 PM CDT [facility] [place] Specimen Anatomical Collection Method Collection Time Receive d Time (Source) Location / / Volume Laterality Blood specimen 03/29/2020 11:33 0 (specimen) AM CDT 11:35 AM CDT Juan José Michelle MD LAB - BLOOD ORDERABLES Performing Organization Address City/State/ZIP Code Phon e Number [facility] [address] [place] [address] UA reflex to Microscopic and Culture (03/29/2020 11:33 AM CDT) [facility] gist Method Time Signature Color Urine Yellow 03/29/2020 [place] 11:50 AM CLINICS [facility] [place] Appearance Urine Clear 03/29/2020 [place] 11:50 AM CLINICS [facility] [place] Glucose Urine Negative NEG^Negat 03/29/2020 [place] gunjan mg/dL 11:50 AM CLINICS [facility] [place] Bilirubin Urine Negative NEG^Negat 03/29/2020 [place] gunjan 11:50 AM CL[facility]ICS [facility] [place] Ketones Urine Negative NEG^Negat 03/29/2020 [place]jan mg/dL 11:50 AM CLINICS [facility] [place] Specific [place] 1.025 1.003 - 03/29/2020 [place] Urine 1.035 11:50 AM CLINICS [facility] [place] Blood Urine Negative NEG^Negat 03/29/2020 [place] gunjan 11:50 AM CLINICS [facility] [place] pH Urine 7.0 5.0 - 7.0 03/29/2020 [place] pH 11:50 AM [facility]ICS [facility] [place] Protein Albumin Negative NEG^Negat 03/29/2020 [place] Urine gunjan mg/dL 11:50 AM CLINICS [facility] [place] Urobilinogen 0.2 0.2 - 1.0 03/29/2020 [place] Urine EU/dL 11:50 AM CLINICS [facility] [place] Nitrite Urine Negative NEG^Negat 03/29/2020 [place]jan 11:50 AM CLINICS [facility] [place] Leukocyte Negative NEG^Negat 03/29/2020 [place] Esterase Urine gunjan 11:50 AM CLINICS [facility] [place] Source Midstream 03/29/2020 [place] Urine 11:34 AM CLINICS [facility] [place] Specimen (Source) Anatomical Collection Method Collection Time Re ceived Time Location / / Volume Laterality Examination of 03/29/2020 11:33 0 midstream urine AM CDT 11:34 AM CDT specimen (procedure) Juan José Michelle MD LAB - URINE ORDERABLES Performing Organization Address City/State/ZIP Code Phon e Number [facility] [place] [address] [place] [address] documented in this encounter Visit Diagnoses Diagnosis [...] colon documented in this encounter Care Teams Pearl Restorer Relationship Specialty Start Date End Date Juan José Michelle MD PCP - General Internal Medicine 05/08/15 01/09/21 Juan José Michelle MD Assigned PCP 07/26/16 12/30/20 [address] [phone] documented as of this encounter
--- OUTSIDE RECORDS SUMMARY | 2022-07-19 12:14 | XMS_ITS | Encounter Summary ---
:1945 Author Organization [place] Address [address] [facility] [place] [address] Care Team Providers Name Role Phone Juan [...] on filedocumented in this encounter Care Teams Bead Supervisor Relationship Specialty Start Date End Date Juan José Michelle MD PCP - General Internal Medicine 05/08/15 01/09/21 Juan José Michelle MD Assigned PCP 07/26/16 12/30/20 [address] [place] [phone] documented as of this encounter
--- OUTSIDE RECORDS SUMMARY | 2022-07-19 12:14 | XMS_ITS | Encounter Summary ---
:1945 Author Organization [place] Address [address] [facility] [facility] [place] [address] Care Team Providers Name Role Phone Juan [...] Type Department Care Team Description 01/24/[address] [facility] Juan José Michelle MD Medication Refill [place] [address] (Allopurinol) [address] [facility], [facility] [address] [place] [phone] (Wo rk) Social History Tobacco Use Types [...] 01/25/2020 2:13 PM CDT Prescription approved per [facility] Refill Protocol. Julianna Garrett RN Telephone Encounter [...] (tophi) documented in this encounter Care Teams Cable Maintainer Relationship Specialty Start Date End Date Juan José Michelle MD PCP - General Internal Medicine 05/08/15 01/09/21 Thomas Singleton MD PCP - General Internal Medicine 01/10/21 07/08/[address] [place] [phone] Thomas Giron MD PCP - General Internal Medicine 07/09/[address] [place] [address] Juan José Michelle MD Assigned PCP 07/26/16 12/30/[address] [place] [address] Adonis Grullon, Assigned Neuroscience 11/29/20 PA-C Provider [address] [place] [address] Adonis Grullon, Assigned Sleep Provider 11/29/20 02/24/21 PA-C [address] [place] [phone] Thomas Singleton MD Assigned PCP 12/31/20 02/07/21 [address] [place] [phone] Ruddy Giron, Assigned Musculoskeletal 01/28/21 DPM Provider [address] [facility] [address] [place] [address] Juan José Michelle MD Assigned PCP 02/08/21 02/24/21 [address] [place] [phone] Thomas Singleton MD Assigned PCP 02/25/21 06/23/21 [address] [place] [address], [place] [phone] Thomas Giron MD Assigned PCP 06/24/21 [address] [place] [address] documented as of this encounter
--- OUTSIDE RECORDS SUMMARY | 2022-07-19 12:14 | XMS_ITS | Encounter Summary ---
:1945 Author Organization [place] Address [address] [place] [address] Care Team Providers Name Role Phone Juan [...] on filedocumented in this encounter Care Teams Pharmaceutical Worker Relationship Specialty Start Date End Date Juan José Michelle MD PCP - General Internal Medicine 05/08/15 01/09/21 Juan José Michelle MD Assigned PCP 07/26/16 12/30/20 [address] [place] [phone] documented as of this encounter
--- OUTSIDE RECORDS SUMMARY | 2022-07-19 12:14 | XMS_ITS | Encounter Summary ---
:1945 Author Organization [place] Address [address] [facility] [facility] [place] [address] Care Team Providers Name Role Phone Juan [...] on filedocumented in this encounter Care Teams Insurance Adviser Relationship Specialty Start Date End Date Juan José Michelle MD PCP - General Internal Medicine 05/08/15 01/09/21 Juan José Michelle MD Assigned PCP 07/26/16 12/30/20 [address] [place] [phone] documented as of this encounter
--- OUTSIDE RECORDS SUMMARY | 2022-07-19 12:14 | XMS_ITS | Encounter Summary ---
:1945 Author Organization [place] Address [address] [facility] [place] [place] [address] Care Team Providers Name Role Phone Juan José Michelle MD Primary Care Provider Juan José Michelle MD Unavailable Reason for Visit Reason Comments Sleep Problem Need supplies (Routine) - Closed Specialty Diagnoses / Procedures Referred By Contact Refer red To Contact Physician Air Route Controller / Diagnoses sleep apnea, requesting new equipment, unknown last ss, last OV 09/29/15, will bring machine, SH Sleep, dx Adonis Grullon, Sleep Medicine Procedures NEW REFERRED [facility] [place] [facility] [address] [facility] [address] [place] [address] Phone: Fax: Referral ID Status Reason Start Date Expiration Date Visits Requ ested Visits Authorized [id number] Closed 02/26/2019 02/26/2020 1 1 Encounter Details Date Type Department Care Team Description 04/05/[address] [facility] Adonis Grullon DIANNE (obs tr[facility] sleep [facility] [place] Herbert PA-C apnea) (Primary Dx) [address] [facility] [address] [facility] [address] [place] [address] [place] [address] Social History Tobacco Use [...] is considered obese. More than two-thirds of [place] adults are considered overweight or obese. Being [...] and wake up at 7:00 AM. Patient's Oliver Sleepiness score 6/24 inconsistent with daytime sleepiness. He says his [...] the importance of driving while alert, to thread puller if drowsy, or nap before getting into [...] Patient Ruddy Calhoun was set up at [facility] on May 25, 2015. Patient received a [...] clavicle excision; Surgeon: Ammy Gallardo MD; Location: OR Social History: Social History Socioeconomic History [...] file Gets together: Not on file Attends yazidism service: Not on file Active member of club or organization: Not on file Attends meetings of clubs or organizations: Not on file Relationship status: Not on file ??? Intimate partner violence: Fear of current or ex partner: Not on file Emotionally abused: Not on file Physically abused: Not on file Forced sexual activity: Not on file Other Topics Concern ??? Parent/sibling w/ CABG, [place] or angioplasty before 65F 55M? Not Asked [...] 38.09 kg/m??. Neck Cir (cm): 44 cm Oliver Total Score 04/05/2019 Total score - Oliver 6 CORY Total Score: 3 (04/05/19 1305) [...] ic) documented in this encounter Care Teams At Home Independent Call Center Agent Relationship Specialty Start Date End Date Juan José Michelle MD PCP - General Internal Medicine 05/08/15 01/09/21 Juan José Michelle MD Assigned PCP 07/26/16 12/30/20 [address] [phone] documented as of this encounter
--- OUTSIDE RECORDS SUMMARY | 2022-07-19 12:14 | XMS_ITS | Encounter Summary ---
:1945 Author Organization [place] Address [address] [place] [address] Care Team Providers Name Role Phone Juan José Michelle MD Primary Care Provider Juan José Michelle MD Unavailable Reason for Visit Reason Onset Date Comments Forms 08/10/2019 disability parking Encounter Details Date Type Department Care Team Description 08/10/2019 Telephone [facility] Juan José Michelle, Forms (disability Clinic Angy WISDOM parking ) [address] [facility], [address] [facility] [address] [place] [address] [place] [phone] Social History Tobacco Use Types Packs/Day Years Used Date Smoking Tobacco: Never Cigars Smokeless Tobacco: Never Alcohol Use Standard Drinks/Week Comments No 0 (1 standard drink = 0.6 oz pure not fo r about 35 years (as of 2014) alcohol) Sex Assigned at Date Recorded Not on file documented as of this encounter Miscellaneous Notes Telephone Encounter - Ellen Harden - 08/16/2019 2:40 PM CST Form Completed and mailed back to patient OTECHNICIAN Telephone Encounter - Lianet Beck CMA - 08/10/2019 5:07 PM CST We received a document from Disability Parking Certificate. Please fill out the requested form, signand place in the black tray between MA Pods. Lianet Beck MA OTECHNICIAN Telephone Encounter - Poornima Klein - 08/10/2019 [...] clinic location was the form placed at?: [facility] Where the form was placed: 1st floor Department Store General Manager tray Box/Folder Additional comments: Please mail form back to patient and he'll mail it in with the fee. If you needto contact him please call . [phone] Call taken on 08/10/2019 at 3:41 PM by Poornima Klein OTECHNICIAN documented in this encounter Plan of Treatment Not on filedocumented as of this encounter Visit Diagnoses Not on filedocumented in this encounter Care Teams Animal Shelter Supervisor Relationship Specialty Start Date End Date Juan José Michelle MD PCP - General Internal Medicine 05/08/15 01/09/21 Juan José Michelle MD Assigned PCP 07/26/16 12/30/20 [address] [place] [phone] documented as of this encounter
--- OUTSIDE RECORDS SUMMARY | 2022-07-19 12:14 | XMS_ITS | Encounter Summary ---
:1945 Author Organization [place] Address [address] [facility] [place] [address] Care Team Providers Name Role Phone Juan José Michelle MD Primary Care Provider Juan José Michelle MD Unavailable Adonis Grullon-Simeon Unavailable Adonis Grullon-Simeon Unavailable Thomas Singleton MD Unavailable Thomas Singleton MD Primary Care Provider Ruddy Giron DPM Unavailable Jua nJosé Michelle MD Unavailable Thomas Singleton MD Unavailable Thomas Giron MD Primary Care Provider Thomas Giron MD Unavailable Reason for Visit Reason Comments Medication Refill [facility] Encounter Details Date Type Department Care Team Description 03/11/2019 Refill [facility] Juan José Michelle MD Medication Refill [place] [address] (triamterene-hctz) [address] [facility], [facility] [address] [place] [phone] (Wo rk) Social History Tobacco Use Types [...] benign documented in this encounter Care Teams Sales Representative Education Courses Relationship Specialty Start Date End Date Juan José Michelle MD PCP - General Internal Medicine 05/08/15 01/09/21 Thomas Singleton MD PCP - General Internal Medicine 01/10/21 07/08/21 [address] [place] [phone] Thomas Giron MD PCP - General Internal Medicine 07/09/[address] [place], [place] [address] Juan José Michelle MD Assigned PCP 07/26/16 12/30/[address] [place] [phone] Adonis Grullon, Assigned Neuroscience 11/29/20 PA-C Provider [address] [place], [place] [phone] Adonis Grullon, Assigned Sleep Provider 11/29/20 02/24/21 PA-C [address] [place], [place] [phone] Thomas Singleton MD Assigned PCP 12/31/20 02/07/21 [address] [place] [phone] Ruddy Giron, Assigned Musculoskeletal 01/28/21 DPM Provider [address] [facility] [address] [place] [address] Juan José Michelle MD Assigned PCP 02/08/21 02/24/[address] [place] [address] Thomas Singleton MD Assigned PCP 02/25/21 06/23/21 [address] [place] [address], [place] [phone] Thomas Giron MD Assigned PCP 06/24/21 [address] [facility] [address] [place], [place] [address] documented as of this encounter
--- OUTSIDE RECORDS SUMMARY | 2022-07-19 12:14 | XMS_ITS | Encounter Summary ---
:1945 Author Organization [place] Address [address] 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 [phone] How would you like to obtain your [...] Patient Ruddy Calhoun was set up at [place] on May 25, 2015. Patient received a Resmed Airsense 10 Auto. Pressures were set at Auto 5 - 15 cm H2O. Patient???s ramp is 0 cm H2O for Off and FLEX/EPR is A Flex 2. Patient received a Jain [employer] PayMaichang Mask name: Simplus Full Face mask Size [...] hypertension documented in this encounter Care Teams Manager Bank Relationship Specialty Start Date End Date Juan José Michelle MD PCP - General Internal Medicine 05/08/15 01/09/21 Juan José Michelle MD Assigned PCP 07/26/16 12/30/20 [address] [place], [place] [phone] documented as of this encounter
--- OUTSIDE RECORDS SUMMARY | 2022-07-19 12:14 | XMS_ITS | Encounter Summary ---
:1945 Author Organization [place] Address [address] [facility] 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 [...] been obtained for this service by care team assembly line machine operator: yes. See the scanned image in the [...] patient and provider was 15 minutes GLSirisha ( signature) I have reviewed the note as [...] obesity documented in this encounter Care Teams Radiation Technician Relationship Specialty Start Date End Date Juan José Michelle MD PCP - General Internal Medicine 05/08/15 01/09/21 Juan José Michelle MD Assigned PCP 07/26/16 12/30/20 [address] [place], [place] [phone] documented as of this encounter
--- OUTSIDE RECORDS SUMMARY | 2022-07-19 12:15 | XMS_ITS | Encounter Summary ---
:1945 Author Organization [place] Address [address] 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 Patient received a Resmed Airsense 10 Auto. Pressures were set at Auto 5 - 15 cm H2O. Patient???s ramp is 0 cm H2O for Off and FLEX/EPR is A Flex 2. Patient received a Jain [employer] PayInvestGlass Mask name: Simplus Full Face mask Size [...] behalf by Liza Fonseca, a trained medical records coordinator. The creation of this document is based on the provider's statements to the medical records coordinator. Liza Fonseca February 23, 2019 3:49 [...] 3. Diagnostic Test Results: Labs reviewed in [facility] No results found for this or any [...] 2019 3:27 PM Juan José Michelle MD [facility] documented in this encounter Plan of Treatment [...] facility documented in this encounter Care Teams Controller Coal Or Ore Relationship Specialty Start Date End Date Juan José Michelle MD PCP - General Internal Medicine 05/08/15 01/09/21 Juan José Michelle MD Assigned PCP 07/26/16 12/30/20 [address] [place], [place] [phone] documented as of this encounter
--- OUTSIDE RECORDS SUMMARY | 2022-07-19 12:15 | XMS_ITS | Encounter Summary ---
:1945 Author Organization [place] Address [address] [facility] [place] [address] Care Team Providers Name Role Phone Juan [...] on filedocumented in this encounter Care Teams Ball Fringe Machine Operator Relationship Specialty Start Date End Date Juan José Michelle MD PCP - General Internal Medicine 05/08/15 01/09/21 Juan José Michelle MD Assigned PCP 07/26/16 12/30/20 [address] [place] [phone] documented as of this encounter
--- OUTSIDE RECORDS SUMMARY | 2022-07-19 12:15 | XMS_ITS | Encounter Summary ---
:1945 Author Organization [place] Address [address] [facility] [place] [address] Care Team Providers Name Role Phone Juan José Michelle MD Primary Care Provider Juan José Michelle MD Unavailable Reason for Visit Reason Comments Medication Refill Encounter Details Date Type Department Care Team Description 12/09/2018 Refill [facility] Juan José Michelle MD Medication Refill [place] [address] [facility] [address] [facility] [place] [address] [place] [address] [phone] Social History Tobacco Use Types Packs/Day Years [...] ALT/Uric acid (Allopurinol) Triamterene-hydrochlorothiazide Prescription approved per [facility] Refill Protocol. Abbi Hawthorne RN Telephone Encounter [...] benign documented in this encounter Care Teams Test Department Helper Relationship Specialty Start Date End Date Juan José Michelle MD PCP - General Internal Medicine 05/08/15 01/09/21 Juan José Michelle MD Assigned PCP 07/26/16 12/30/20 [address] [place] [phone] documented as of this encounter
--- OUTSIDE RECORDS SUMMARY | 2022-07-19 12:15 | XMS_ITS | Encounter Summary ---
:1945 Author Organization [place] Address [address] [facility] [place] [address] Care Team Providers Name Role Phone Juan [...] on filedocumented in this encounter Care Teams Automotive Generator Repairer Relationship Specialty Start Date End Date Juan José Michelle MD PCP - General Internal Medicine 05/08/15 01/09/21 Juan José Michelle MD Assigned PCP 07/26/16 12/30/20 [address] [place] [phone] documented as of this encounter
--- OUTSIDE RECORDS SUMMARY | 2022-07-19 12:15 | XMS_ITS | Encounter Summary ---
:1945 Author Organization [place] Address [address] 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 Patient received a Zawatt Airsense 10 Auto. Pressures were set at Auto 5 - 15 cm H2O. Patient???s ramp is 0 cm H2O for Off and FLEX/EPR is A Flex 2. Patient received a Jain & PayFix That Bug Mask name: Simplus Full Face mask Size [...] his behalf by Liza Fonseca, a trained center medical director. The creation of this document is based on the provider's statements to the center medical director. Liza Fonseca January 26, 2019 1:43 PM [...] information in this document, created by the center medical director for me, accurately reflects the services I personally performed and the decisions made by me. I have reviewed and approved this document for accuracy prior to leaving the patient care area. January 26, 2019 2:39 PM Juan José Michelle MD [facility] Identified Health Risks: documented in this encounter Plan of Treatment Not on filedocumented as of this encounter Procedures Procedure Name Priority Date/Time Associated Diagnosis Comme nts VITAMIN D DEFICIENCY Routine 01/26/2019 2:35 Routine general R esults for this SCREENING PM CDT medical examination at [facility] are in a health care fa cility the results Vitamin D deficiency section . URIC ACID Routine 01/26/2019 2:35 Idiopathic chronic Result s for this PM CDT gout of multiple sites [facility] are in without tophus the results Routine general section. medical examination at a health care facility TSH WITH FREE T4 Routine 01/26/2019 2:35 Routine general Resul ts for this REFLEX PM CDT medical examination at [facility] are in a health care fa cility the results Screening for section. hypothyroidism PROSTATE SPECIFIC Routine 01/26/2019 2:35 Routine general Resu lts for this ANTIGEN SCREEN PM CDT medical examination at [facility] are in a health care fa cility the results Screening for prostate secti on. cancer LIPID REFLEX TO Routine 01/26/2019 2:35 Routine general Result s for this DIRECT LDL PANEL PM CDT medical examination at [facility] are in a health care fa cility the results Hyperlipidemia LDL section. goal <130 COMPREHENSIVE Routine 01/26/2019 2:35 Routine general Results for this METABOLIC PANEL PM CDT medical examination at [facility] are in a health care fa cility the results Essential hypertension secti on. CBC WITH PLATELETS Routine 01/26/2019 2:35 Routine general Res ults for this PM CDT medical examination at [facility] are in a health care fa cility the results Essential hypertension secti on. UA MACROSCOPIC WITH Routine 01/26/2019 2:34 Routine general Re sults for this REFLEX TO MICROSCOPIC PM CDT medical examination at [facility] are in AND CULTURE a health care fa cility the results Essential hypertension secti on. documented in this encounter Results Fecal colorectal cancer screen (FIT) (02/01/2019 9:53 AM CDT) Analysis Performed At Patho logist Time Signature Occult Blood Negative NEG^Negati 02/07/2019 [facility] FIT ve 10:37 AM CDT [facility] Specimen Anatomical Collection Method Collection Time Receive d Time (Source) Location / / Volume Laterality Stool specimen 02/01/2019 9:53 AM 019 9:58 (specimen) CDT AM CDT Juan José Michelle MD LAB - STOOLS ORDERABLES Performing Organization Address City/State/ZIP Code Phon e Number [facility] [address] [place] [address] [facility] Uric acid (01/26/2019 2:35 PM CDT) athologist Signature Uric Acid 4.9 3.5 - 7.2 01/27/2019 [facility] mg/dL 2:[address] [facility] Specimen Anatomical Collection Method Collection Time Receive d Time (Source) Location / / Volume Laterality Blood specimen 01/26/2019 2:35 PM 019 2:36 (specimen) CDT PM CDT Juan José Michelle MD LAB - BLOOD ORDERABLES Performing Organization Address City/[facility]/ZIP Code Phon e Number [facility] [address] [place] [address] Prostate spec antigen screen (01/26/2019 2:35 PM CDT) athologist Signature PSA 1.00 0 - 4 ug/L 01/27/2019 [place] 2:44 PM CDT [facility] Comment: Assay Method: Chemiluminescence using magnetic.io Girard analyzer Specimen Anatomical Collection Method Collection Time Receive d Time (Source) Location / / Volume Laterality Blood specimen 01/26/2019 2:35 PM 019 2:36 (specimen) CDT PM CDT Juan José Michelle MD LAB - BLOOD ORDERABLES Performing Organization Address City/[facility]/ZIP Code Phon e Number [facility] [address] [place] [address] [facility] [address] [place] [address], [place] [phone] TSH with free T4 reflex (01/26/2019 2:35 PM CDT) athologist Signature TSH 1.50 0.40 - 4.00 01/27/2019 [place] [facility] mU/L 2:[address] [facility] Specimen Anatomical Collection Method Collection Time Receive d Time (Source) Location / / Volume Laterality Blood specimen 01/26/2019 2:35 PM 019 2:36 (specimen) CDT PM CDT Juan José Michelle MD LAB - BLOOD ORDERABLES Performing Organization Address City/[facility]/ZIP Code Phon e Number [facility] [address] [place] [address] Vitamin D Deficiency (01/26/2019 2:35 PM CDT) P athologist Signature Vitamin D 63 20 - 75 01/27/2019 [facility] ug/L 1:51 PM CDT [place] [facility] Comment: Season, race, dietary intake, and treatm ent affect the concentration of 47-ggfmqfp-Mtnltdy D. Values may decreas e during winter [...] LAB - BLOOD ORDERABLES Performing Organization Address City/[facility]/ZIP Code Phon e Number [id number] [place] [address] Lipid panel reflex to direct LDL Fasting (01/26/2019 2:35 PM CDT) Patholo gist Method Time Signature Cholesterol 154 <200 01/27/2019 [facility] mg/dL 2:48 PM CDT [facility] Triglycerides 72 <150 01/27/2019 [facility] mg/dL 2:48 PM CDT [facility] HDL Cholesterol 57 >39 mg/dL 01/27/2019 [facility] 2:48 PM CDT [facility] LDL Cholesterol 83 <100 01/27/2019 [facility] Calculated mg/dL 2:48 PM CDT [facility] Comment: Desirable: <100 mg/dl Non HDL Cholesterol 97 <130 mg/dL 01/27/2019 2:48 PM CDT [facility] Specimen Anatomical Collection Method Collection Time Receive d Time (Source) Location / / Volume Laterality Blood specimen 01/26/2019 2:35 PM 019 2:36 (specimen) CDT PM CDT Juan José Michelle MD LAB - BLOOD ORDERABLES Performing Organization Address City/State/ZIP Code Phon e Number [facility] [address] [place] [address] Comprehensive metabolic panel (01/26/2019 2:35 PM CDT) P athologist Signature Sodium 140 133 - 144 01/27/2019 [facility] mmol/L 2:[address] [facility] Potassium 3.9 3.4 - 5.3 01/27/2019 [facility] mmol/L 2:[address] [facility] Chloride 103 94 - 109 01/27/2019 [facility] mmol/L 2:[address] [facility] Carbon Dioxide 31 20 - 32 01/27/2019 [place] mmol/L 2:[address] [facility] Anion Gap 6 3 - 14 01/27/2019 [place] mmol/L 2:[address] [facility] Glucose 91 70 - 99 01/27/2019 [place] mg/dL 2:[address] [facility] Urea Nitrogen 17 7 - 30 01/27/2019 [facility] mg/dL 2:[address] [facility] Creatinine 1.12 0.66 - 01/27/2019 [facility] 1.25 mg/dL 2:[address] [facility] GFR Estimate 65 >60 01/27/2019 [place] mL/min/{1. 2:28 PM CDT CLINICS 73_m2} [facility] Comment: Non GFR Calc Starting 09/01/2018, serum creatinine ba sed estimated GFR (eGFR) will be calculated using the Chronic Kidney Dise ase Epidemiology Collaboration (CKD-EPI) equation. GFR Estimate If 76 >60 mL/min/{1.73_m2} 01/27/2019 2: 28 PM [place] [facility] Black T [facility] Comment: GFR Calc Starting 09/01/2018, serum creatinine ba sed estimated GFR (eGFR) will be calculated using the Chronic Kidney Dise ase Epidemiology Collaboration (CKD-EPI) equation. Calcium 8.5 8.5 - 10.1 01/27/2019 2:28 PM [place] C LINICS mg/dL CDT [facility] Bilirubin Total 0.7 0.2 - 1.3 mg/dL 01/27/2019 2:48 PM [facility] Albumin 3.6 3.4 - 5.0 g/dL 01/27/2019 2:[address] [facility] Protein Total 7.1 6.8 - 8.8 g/dL 01/27/2019 2:48 PM [facility] Alkaline Phosphatase 68 40 - 150 U/L 01/27/2019 2:48 PM [facility] ALT 36 0 - 70 U/L 01/27/2019 2:48 PM [facility] AST 23 0 - 45 U/L 01/27/2019 2:48 PM [facility] Specimen Anatomical Collection Method Collection Time Receive d Time (Source) Location / / Volume Laterality Blood specimen 01/26/2019 2:35 PM 019 2:36 (specimen) CDT PM CDT Juan José Michelle MD LAB - BLOOD ORDERABLES Performing Organization Address City/State/ZIP Code Phon e Number [facility] [address] [place] [address] (ABNORMAL) CBC with platelets (01/26/2019 2:35 PM CDT) Analysis Performed At Patho logist Time Signature WBC 12.4 (H) 4.0 - 11.0 01/26/2019 [facility] 10e9/L 3:09 PM CDT [facility] [place] RBC Count 4.94 4.4 - 5.9 01/26/2019 [facility] 10e12/L 3:09 PM CDT [facility] [place] Hemoglobin 15.1 13.3 - 01/26/2019 [facility] 17.7 g/dL 3:09 PM CDT [facility] [place] Hematocrit 45.9 40.0 - 01/26/2019 [facility] 53.0 % 3:09 PM CDT [facility] [place] MCV 93 78 - 100 01/26/2019 [facility] fl 3:09 PM CDT [facility] [place] MCH 30.6 26.5 - 01/26/2019 [facility] 33.0 pg 3:09 PM CDT [facility] [place] MCHC 32.9 31.5 - 01/26/2019 [facility] 36.5 [...] Organization Address City/State/ZIP Code Phon e Number [facility] [place] [address] [place] [address] UA reflex to Microscopic and Culture (01/26/2019 2:34 PM CDT) [facility] Method Time Signature Color Urine Yellow [...] 3:01 PM CDT [facility] [place] Specific [place] 1.020 1.003 - 01/26/2019 [facility] Urine 1.035 3:01 PM CDT [facility] [place] Blood Urine Negative NEG^Negat 01/26/2019 [facility] gunjan 3:01 PM CDT [facility] [place] pH Urine 7.0 5.0 - 7.0 01/26/2019 [facility] pH 3:01 PM CDT [facility] [place] Protein Albumin Negative NEG^Negat 01/26/2019 [facility] Urine gunjan mg/dL 3:01 PM CDT [facility] [place] Urobilinogen 0.2 0.2 - 1.0 01/26/2019 [facility] Urine EU/dL 3:01 PM CDT [facility] [place] Nitrite Urine Negative NEG^Negat 01/26/2019 [facility] gunjan 3:01 PM CDT [facility] [place] Leukocyte Negative NEG^Negat 01/26/2019 [place] Esterase Urine gunjan 3:01 PM CDT [facility] [place] Source Midstream 01/26/2019 [place] Urine 2:[address] [facility] Specimen (Source) Anatomical Collection Method Collection Time Re ceived Time Location / / Volume Laterality Examination of 01/26/2019 2:34 01/26/2019 2:35 midstream urine PM CDT PM CDT specimen (procedure) Juan José Michelle MD LAB - URINE ORDERABLES Performing Organization Address City/State/ZIP Code Phon e Number [facility] [address] [place] [address] documented in this encounter Visit Diagnoses Diagnosis Hyperlipidemia LDL goal <130 - Primary Other and unspecified hyperlipidemia Routine general medical examination at a health care facility Idiopathic chronic gout of multiple [...] colon documented in this encounter Care Teams Pipeline Controller Relationship Specialty Start Date End Date Juan José Michelle MD PCP - General Internal Medicine 05/08/15 01/09/21 Juan José Michelle MD Assigned PCP 07/26/16 12/30/20 [address] [place] [phone] documented as of this encounter
--- OUTSIDE RECORDS SUMMARY | 2022-07-19 12:15 | XMS_ITS | Encounter Summary ---
:1945 Author Organization [place] Address [address] [place] [address] Care Team Providers Name Role Phone Juan José Michelle MD Primary Care Provider Juan José Michelle MD Unavailable Reason for Referral Diagnostic Imaging XR (Routine) - Closed Specialty Diagnoses / Procedures Referred By Contact Refer red To Contact Diagnoses Great toe pain, right Vickie Dudley Procedures XR Toe Right G/E 2 Views MD [place] [address] [place], [place] [address] Referral ID Status Reason Start Date Expiration Date Visits Requ ested Visits Authorized [id number] Closed 01/13/2019 01/13/2020 1 1 Reason for Visit Reason Comments Toe Pain Encounter Details Date Type Department Care Team Description 01/13/2019 Office Visit [facility] [place], Great toe pain, right (Primary Dx); Clinic [place] Vickie Myers, History of gout [address] [facility] [place], [place] [address] [address] [place], [place] [phone] [address] Social History Tobacco Use Types Packs/Day Years [...] Pain He is an established patient of [place]. HPI: The patient is a 73-year-old male, [...] Patient Ruddy Port was set up at [place] on May 25, 2015. Patient received a 2nd Watch Airsense 10 Auto. Pressures were set at [...] discussion of follow up. Vickie Dudley MD [facility] documented in this encounter Plan of [...] right documented in this encounter Care Teams School Counselor Relationship Specialty Start Date End Date Juan José Michelle MD PCP - General Internal Medicine 05/08/15 01/09/21 Juan José Michelle MD Assigned PCP 07/26/16 12/30/20 [address] [place] [phone] documented as of this encounter
--- OUTSIDE RECORDS SUMMARY | 2022-07-19 12:15 | XMS_ITS | Encounter Summary ---
:1945 Author Organization [place] Address [address] [facility] [place] [address] Care Team Providers Name Role Phone Juan [...] on filedocumented in this encounter Care Teams Baggage Inspector Relationship Specialty Start Date End Date Juan José Michelle MD PCP - General Internal Medicine 05/08/15 01/09/21 Juan José Michelle MD Assigned PCP 07/26/16 12/30/20 [address] [place] [phone] documented as of this encounter
--- OUTSIDE RECORDS SUMMARY | 2022-07-19 12:15 | XMS_ITS | Encounter Summary ---
:1945 Author Organization [place] Address [address] [place] [address] Care Team Providers Name Role Phone Juan José Michelle MD Primary Care Provider Juan José Michelle MD Unavailable Reason for Visit Diagnostic Imaging XR (Routine) - Closed Specialty Diagnoses / Procedures Referred By Contact Refer red To Contact Diagnoses Great toe pain, right Rain-Gerson, Vickie Procedures XR Toe Right G/E 2 Views MD Lucia [address] [place], [place] [address] Referral ID Status Reason Start Date Expiration Date Visits Requ ested Visits Authorized [id number] Closed 01/13/2019 01/13/2020 1 1 Encounter Details Date Type Department Care Team Description 01/13/2019 Ancillary Procedure [facility] Votava-Slimyk, Great toe pain, Clinic [facility] right [address] [facility] MD Lucia [place], [place] [address] [address] [place], [place] [phone] Social History Tobacco Use Types Packs/Day [...] right documented in this encounter Care Teams Sand Mill Grinder Relationship Specialty Start Date End Date Juan José Michelle MD PCP - General Internal Medicine 05/08/15 01/09/21 Juan José Michelle MD Assigned PCP 07/26/16 12/30/20 [address] [facility] [address] [place] [address] documented as of this encounter
--- OUTSIDE RECORDS SUMMARY | 2022-07-19 12:15 | XMS_ITS | Encounter Summary ---
:1945 Author Organization [place] Address [facility] [address] Care Team Providers Name Role Phone Juan José Michelle MD Primary Care Provider Juan José Michelle MD Unavailable Encounter Details Date Type Department Care Team Description 02/09/2019 [facility] Only [facility] Santiago catherine general medical examination at a health care facility; [facility] Special screening for malign ant neoplasms, colon [address] [place], [place] [phone] Social History Tobacco Use [...] Time Signature Occult Blood Negative NEG^Negati 02/07/2019 [facility] FIT ve 10:37 AM CDT [facility] Specimen Anatomical Collection Method Collection Time Receive d Time (Source) Location / / Volume Laterality Stool specimen 02/01/2019 9:53 AM 019 9:58 (specimen) CDT AM CDT Juan José Michelle MD LAB - STOOLS ORDERABLES Performing Organization Address City/State/ZIP Code Phon e Number [facility] [address] [place], [place] [id number] [place] [address] documented in this encounter Visit Diagnoses Diagnosis Routine general medical examination at a health care facility Special screening for malignant neoplasm s, colon documented in this encounter Care Teams Ornamental Rail Installer Relationship Specialty Start Date End Date Juan José Michelle MD PCP - General Internal Medicine 05/08/15 01/09/21 Juan José Michelle MD Assigned PCP 07/26/16 12/30/20 [address] [phone] documented as of this encounter
--- OUTSIDE RECORDS SUMMARY | 2022-07-19 12:15 | XMS_ITS | Encounter Summary ---
:1945 Author Organization [place] Address [address] [place] [address] Care Team Providers Name Role Phone Juan José Michelle MD Primary Care Provider Juan José Michelle MD Unavailable Reason for Visit Auth/Cert Specialty Diagnoses / Procedures Referred By Contact Refer red To Contact Surgery Diagnoses Left torn rotator cuff Rh Periop Services Procedures COMBINED ARTHROSCOPY SHOULDER, OPEN ROTATOR CUFF REPAIR COMBINED ARTHROSCOPY SHOULDER, OPEN DISTAL CLAVICLE RESECTION [address] [place], [place] [address] Phone: Fax: Referral ID Status Reason Start Date Expiration Date Visits Requ ested Visits Authorized [id number] 1 1 Encounter Details Date Type Department Care Team Description 12/09/2018 Anesthesia Event [facility] Jerod Gong PeriOp Services MD Efrain [address] [place] [address] ANESTHESIA [id number] [place], [place] [address] (Wo rk) Anesthesia Record Procedure Summary Procedure Name Responsible Anesthesia Start Anesthesia Stop Anesthesiologist Time Time Open left shoulder Jerod Gong MD 12/09/18 0955 12/09 1212 rotator cuff repair with repair of supraspinatus, infraspinatus and teres minor. Distal clavicle excision and acromioplasty (Left: Shoulder) Events Date Time Event Comment 12/09/2018 0936 Non-OR Block Start Jerod Gong 0945 Non-OR Block Stop Jerod Zuniga Toni teddyey 0955 An Start 0957 MD Present 1000 [...] Thye n, Michael oral airway; Ease of PLANT CARE WORKER MJ VÁZQUEZ Intubation: Easy; Airway Size: 8; [...] MD - 12/09/2018 1:04 PM CDT Patient: Ruddy [facility] Procedure(s): Left shoulder open rotator cuff [...] 104 104 CO2 33* 32 32 BUN CR 1.23 1.06 1.22 ANIONGAP 6 4 [...] benefits and alternatives discussed with: Patient or education courses sales representative, Patientand Spouse.. Jerod Gong MD . documented in this encounter Miscellaneous Notes Anesthesia Care Transfer Note - Ruddy HessMJ PLANT CARE WORKER - 12/09/2018 12:12 PM CDT Patient: Ruddy Port Procedure(s): Left shoulder open rotator cuff repair [...] (Last set prior to Anesthesia Care Transfer) PLANT CARE WORKER VITALS 12/09/2018 1136 - 12/09/2018 1212 12/09/2018 [...] Intra-op documented in this encounter Care Teams Rush Seater Relationship Specialty Start Date End Date Juan José Michelle MD PCP - General Internal Medicine 05/08/15 01/09/21 Juan José Michelle MD Assigned PCP 07/26/16 12/30/20 [address] [facility] [address] [place] [phone] documented as of this encounter
--- OUTSIDE RECORDS SUMMARY | 2022-07-19 12:15 | XMS_ITS | Encounter Summary ---
:1945 Author Organization [place] Address [address] [facility] [place] [address] Care Team Providers Name Role Phone Juan [...] on filedocumented in this encounter Care Teams Early Years Teacher Relationship Specialty Start Date End Date Juan José Michelle MD PCP - General Internal Medicine 05/08/15 01/09/21 Juan José Michelle MD Assigned PCP 07/26/16 12/30/20 [address] [place] [phone] documented as of this encounter
--- OUTSIDE RECORDS SUMMARY | 2022-07-19 12:15 | XMS_ITS | Encounter Summary ---
:1945 Author Organization [place] Address [address] [place] [address] Care Team Providers Name Role Phone Juan José Michelle MD Primary Care Provider Juan José Michelle MD Unavailable Reason for Visit Reason Comments Medication Refill lisinopril-hctz Encounter Details Date Type Department Care Team Description 01/07/2019 Refill [facility] Juan José Michelle MD Medication Refill [place] [address] [facility] [address] [facility] [address] [place] [phone] (Wo rk) Social History Tobacco Use Types [...] 01/08/2019 1:00 PM CDT Prescription approved per [facility] Refill Protocol. Ambika Machado RN Telephone Encounter - Elsyia Maza - 01/07/2019 1:21 PM CDT Last [...] benign documented in this encounter Care Teams Snow Remover Relationship Specialty Start Date End Date Juan José Michelle MD PCP - General Internal Medicine 05/08/15 01/09/21 Juan José Michelle MD Assigned PCP 07/26/16 12/30/20 [address] [place], [place] [phone] documented as of this encounter
--- OUTSIDE RECORDS SUMMARY | 2022-07-19 12:16 | XMS_ITS | Encounter Summary ---
:1945 Author Organization [place] Address [address] [facility] [place] [address] Care Team Providers Name Role Phone Juan José Michelle MD Primary Care Provider Juan José Michelle MD Unavailable Juan José Michelle MD Unavailable Reason for Visit Reason Comments Medication Refill triamterene-hydrochlorothiaz pk (DYAZIDE) 37.5-25 MG per capsule Encounter Details Date Type Department Care Team Description 06/08/2017 Refill [facility] Juan José Michelle MD Medication Refill [place] [address] (triamterene-hydrochloro [address], [address] thiazide (DYAZIDE) [address] [place] 37.5-25 MG per capsule) [place] [phone] (Wo rk) Social History Tobacco Use Types Packs/Day Years Used Date Smoking Tobacco: Former Cigars Smokeless Tobacco: Never Alcohol Use Standard [...] # refills: ? Last Office Visit with [facility], P or [facility] prescribing provider: 05/12/2017 Future Office visit: Routing refill request to provider for review/approval because: Drug not active on patient's medication list documented in this encounter Plan of Treatment Not on filedocumented as of this encounter Visit Diagnoses Diagnosis Benign essential hypertension Essential hypertension, benign documented in this encounter Care Teams Water Team Leader Relationship Specialty Start Date End Date Juan José Michelle MD PCP - General Internal Medicine 05/08/15 01/09/21 Juan José Michelle MD PCP - Assigned PCP 07/26/16 11/17/18 [address] [place] [phone] Juan José Michelle MD Assigned PCP 07/26/16 12/30/20 [address] [place] [phone] documented as of this encounter
--- OUTSIDE RECORDS SUMMARY | 2022-07-19 12:16 | XMS_ITS | Encounter Summary ---
:1945 Author Organization [place] Address [address] [facility] [place] [address] Care Team Providers Name Role Phone Juan José Michelle MD Primary Care Provider Juan José Michelle MD Unavailable Juan José Michelle MD Unavailable Reason for Visit Reason Comments Medication Refill Allopurinol - discontinued Encounter Details Date Type Department Care Team Description 07/01/2017 Refill [facility] Juan José Michelle MD Medication Refill [place] [address] (Allopurinol - [address] [facility], [address] discontinued) [address] [place] [phone] (Wo rk) Social History Tobacco Use Types [...] Telephone Encounter - Tamra Washington RN - 07/01/2017 4:18 PM CDT Refill request for Allopurinol Not on current medication list. Discontinued. Lissa [place] RN documented in this encounter Plan of Treatment Not on filedocumented as of this encounter Visit Diagnoses Not on filedocumented in this encounter Care Teams Buoy Tender Relationship Specialty Start Date End Date Juan José Michelle MD PCP - General Internal Medicine 05/08/15 01/09/21 Juan José Michelle MD PCP - Assigned PCP 07/26/16 11/17/18 [address] [place] [phone] Juan José Michelle MD Assigned PCP 07/26/16 12/30/20 [address] [place] [phone] documented as of this encounter
--- OUTSIDE RECORDS SUMMARY | 2022-07-19 12:16 | XMS_ITS | Encounter Summary ---
:1945 Author Organization [place] Address [address] 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; [address], [address] Seborrheic keratosis, inflamed; [place] [address] [place] Encounter for routine adult health examination without abnormal findings; [phone] Screening for prostate cancer; [phone] Class 2 obesity due to excess calories without serious comorbidity with body mass index (BMI) of 35.0 to 35.9 in adult; (Work) Hyperlipidemia LDL goal <130; [phone] Vitamin D defic iency; (Fax) Fatigue, unspec [...] documented in this encounter Patient Instructions Patient InstructionsAbimbola Sharpe, CIGAR PACKER AND PICKER - 11/27/2017 8:57 AM CDT Preventive Health [...] COGNITIVE SCREEN 1) Repeat 3 items (Banana, [place], Chair) 2) Clock draw: NORMAL 3) 3 item recall: Recalls 3 objects Results: 3 items recalled: COGNITIVE IMPAIRMENT LESS LIKELY Mini-CogTM Copyright S Alicia. Licensed by the author for use in [facility]; reprintedwith permission (brad@[email or web address]). All rights reserved. Patient presents to the [...] Patient Ruddy Calhoun was set up at [place] on May 25, 2015. Patient received a Resmed Airsense 10 Auto. Pressures were set at Auto 5 - 15 cm H2O. Patient???s ramp is 0 cm H2O for Off and FLEX/EPR is A Flex 2. Patient received a [employer] Mask name: Simplus Full Face mask Size [...] his/her behalf by Matthew Dave, a trained hospital medical assistant. The creation of this document is based the provider's statements to the hospital medical assistant. Eladia Dave 9:17 AM, November 27, 2017 OBJECTIVE: [...] Lung CA Screening Juan José Michelle MD [facility] The information in this document, created by the hospital medical assistant for me, accurately reflects the services I [...] Microscopic and Culture (11/27/2017 10:41 AM CDT) [facility] gist Method Time Signature Color Urine Yellow 11/27/2017 [facility] 11:08 AM CLINICS CDT [place] Appearance Urine Clear 11/27/2017 [facility] 11:08 AM CLINICS CDT [place] Glucose Urine Negative NEG^Negat 11/27/2017 [facility] [place]jan mg/dL 11:08 AM CLINICS CDT [place] Bilirubin Urine Negative NEG^Negat 11/27/2017 [facility] [place] 11:08 AM CLINICS CDT [place] Ketones Urine Negative NEG^Negat 11/27/2017 [facility] [place] mg/dL 11:08 AM CLINICS CDT [place] Specific [place] 1.020 1.003 - 11/27/2017 [facility] Urine 1.035 11:08 AM CLINICS CDT [place] Blood Urine Negative NEG^Negat 11/27/2017 [facility] [place] 11:08 AM CLINICS CDT [place] pH Urine 7.0 5.0 - 7.0 11/27/2017 [facility] pH 11:08 AM CLINICS CDT [place] Protein Albumin Negative NEG^Negat 11/27/2017 [facility] Urine gunjan mg/dL 11:08 AM CLINICS CDT [place] Urobilinogen 0.2 0.2 - 1.0 11/27/2017 [facility] Urine EU/dL 11:08 AM CLINICS CDT [place] Nitrite Urine Negative NEG^Negat 11/27/2017 [facility] [place] 11:08 AM CLINICS CDT [place] Leukocyte Negative NEG^Negat 11/27/2017 [facility] Esterase Urine gunjan 11:08 AM CLINICS CDT [place] Source Midstream 11/27/2017 [facility] Urine 11:08 AM CLINICS CDT [place] Specimen (Source) Anatomical Collection Method Collection Time Re ceived Time Location / / Volume Laterality Examination of 11/27/2017 10:41 8 midstream urine AM CDT 10:42 AM CDT specimen (procedure) Juan José Michelle MD LAB - URINE ORDERABLES Performing Organization Address City/State/ZIP Code Phon e Number [facility] [address] [place] [address] Uric acid (11/27/2017 10:40 AM CDT) P athologist Signature Uric Acid 4.7 3.5 - 7.2 11/27/2017 [facility] mg/dL 2:59 PM CDT [facility] Specimen Anatomical Collection Method Collection Time Receive d Time (Source) Location / / Volume Laterality Blood specimen 11/27/2017 10:40 8 (specimen) AM CDT 10:41 AM CDT Juan José Michelle MD LAB - BLOOD ORDERABLES Performing Organization Address City/State/ZIP Code Phon e Number [facility] [address] [place] [address] Lipid panel reflex to direct LDL Fasting (11/27/2017 10:40 AM CDT) Patholo gist Method Time Signature Cholesterol 159 <200 11/27/2017 [place] mg/dL 2:59 PM CDT [facility] Triglycerides 98 <150 11/27/2017 [facility] mg/dL 2:59 PM CDT [facility] HDL Cholesterol 47 >39 mg/dL 11/27/2017 [facility] 2:59 PM CDT [facility] LDL Cholesterol 92 <100 11/27/2017 [facility] Calculated mg/dL 2:59 PM CDT [facility] Comment: Desirable: <100 mg/dl Non HDL Cholesterol 112 <130 mg/dL 11/27/2017 2:[address] [facility] Specimen Anatomical Collection Method Collection Time Receive d Time (Source) Location / / Volume Laterality Blood specimen 11/27/2017 10:40 8 (specimen) AM CDT 10:41 AM CDT Juan José Michelle MD LAB - BLOOD ORDERABLES Performing Organization Address City/State/ZIP Code Phon e Number [facility] [address] [place] [address] Comprehensive metabolic panel (11/27/2017 10:40 AM CDT) athologist Signature Sodium 140 133 - 144 11/27/2017 [facility] mmol/L 2:59 PM CDT [facility]IN[facility] Potassium 3.5 3.4 - 5.3 11/27/2017 [facility] mmol/L 2:59 PM CDT [facility] Chloride 104 94 - 109 11/27/2017 [facility] mmol/L 2:59 PM CDT [facility] Carbon Dioxide 32 20 - 32 11/27/2017 [facility] mmol/L 2:59 PM CDT [facility] Anion Gap 4 3 - 14 [facility]/L 2:59 PM [facility] Glucose 99 70 - 99 11/27/2017 [facility] mg/dL 2:59 PM CDT [facility] Urea Nitrogen 17 7 - 30 11/27/2017 [facility] mg/dL 2:59 PM CDT [facility] Creatinine 1.06 0.66 - 11/27/2017 [facility] 1.25 mg/dL 2:59 PM CDT [facility] GFR Estimate 69 >60 11/27/2017 [facility] mL/min/1.7 2:59 PM CDT CLINICS m2 [facility] Comment: Non GFR Calc GFR Estimate If 83 >60 mL/min/1.7m2 11/27/2017 2:59 P M [facility] Black T [facility] Comment: GFR Calc Calcium 9.1 8.5 - 10.1 11/27/2017 2:59 PM [facility] mg/dL T [facility] Bilirubin Total 0.6 0.2 - 1.3 mg/dL 11/27/2017 2:59 PM [facility] Albumin 3.5 3.4 - 5.0 g/dL 11/27/2017 2:59 PM [facility] CDT [facility] Protein Total 7.2 6.8 - 8.8 g/dL 11/27/2017 2:59 PM [facility] Alkaline Phosphatase 68 40 - 150 U/L 11/27/2017 2:59 PM [facility] ALT 58 0 - 70 U/L 11/27/2017 2:59 PM [facility] T [facility] AST 31 0 - 45 U/L 11/27/2017 2:59 PM [facility] Specimen Anatomical Collection Method Collection Time Receive d Time (Source) Location / / Volume Laterality Blood specimen 11/27/2017 10:40 8 (specimen) AM CDT 10:41 AM CDT Juan José Michelle MD LAB - BLOOD ORDERABLES Performing Organization Address City/State/ZIP Code Phon e Number [facility] [address] [place] [address] CBC with platelets (11/27/2017 10:40 AM CDT) P athologist Signature WBC 10.5 4.0 - 11.0 11/27/2017 [facility] 10e9/L 11:10 AM CDT [facility] [place] RBC Count 5.20 4.4 - 5.9 11/27/2017 [facility] 10e12/L 11:10 AM CDT [facility] [place] Hemoglobin 15.4 13.3 - 11/27/2017 [facility] 17.7 g/dL 11:10 AM CDT [facility] [place] Hematocrit 48.6 40.0 - 11/27/2017 [facility] 53.0 % 11:10 AM CDT [facility] [place] MCV 94 78 - 100 11/27/2017 [facility] fl 11:10 AM CDT [facility] [place] MCH 29.6 26.5 - 11/27/2017 [facility] 33.0 pg 11:10 AM CDT [facility] [place] MCHC 31.7 31.5 - 11/27/2017 [facility] 36.5 g/dL 11:10 AM CDT [facility] [place] RDW 14.6 10.0 - 11/27/2017 [facility] 15.0 % 11:10 AM CDT [facility] Platelet Count 199 150 - 450 11/27/2017 [facility] 10e9/L 11:10 AM CDT [facility] Specimen Anatomical Collection Method Collection Time Receive d Time (Source) Location / / Volume Laterality Blood specimen 11/27/2017 10:40 8 (specimen) AM CDT 10:41 AM CDT Juan José Michelle MD LAB - BLOOD ORDERABLES Performing Organization Address City/State/ZIP Code Phon e Number [facility] [address] [place] [address] TSH with free T4 reflex (11/27/2017 10:40 AM CDT) athologist Signature TSH 2.10 0.40 - 4.00 11/27/2017 [facility] mU/L 2:59 PM CDT [facility] Specimen Anatomical Collection Method Collection Time Receive d Time (Source) Location / / Volume Laterality Blood specimen 11/27/2017 10:40 8 (specimen) AM CDT 10:41 AM CDT Juan José Michelle MD LAB - BLOOD ORDERABLES Performing Organization Address City/State/ZIP Code Phon e Number [facility] [address] [place] [address] Vitamin D Deficiency (11/27/2017 10:40 AM CDT) athologist Signature Vitamin D 22 20 - 75 11/27/2017 [facility] Deficiency ug/L 8:07 PM CDT [place] MEDICAL screening [facility] Comment: Season, race, dietary intake, and treatm ent affect the concentration of 84-xasvgwq-Azewqqg D. Values may decreas e during winter [...] Organization Address City/State/ZIP Code Phon e Number [facility] [address] [place] [address] [facility] Prostate spec antigen screen (11/27/2017 10:40 AM CDT) P athologist Signature PSA 2.01 0 - 4 ug/L 11/27/2017 [place] 2:[address] [facility] Comment: Assay Method: Chemiluminescence using Siemens Economy analyzer Specimen Anatomical Collection Method Collection Time Receive d Time (Source) Location / / Volume Laterality Blood specimen 11/27/2017 10:40 8 (specimen) AM CDT 10:41 AM CDT Juan José Michelle MD LAB - BLOOD ORDERABLES Performing Organization Address City/State/ZIP Code Phon e Number [facility] [address] [place] [address] [phone] [facility] [address] [place] [address], [facility] [phone] documented in this encounter Visit Diagnoses Diagnosis [...] type documented in this encounter Care Teams Electroneurodiagnostic Technologist Relationship Specialty Start Date End Date [...]
--- OUTSIDE RECORDS SUMMARY | 2022-07-19 12:16 | XMS_ITS | Encounter Summary ---
:1945 Author Organization [place] Address [address] [facility] [place] [address] Care Team Providers Name Role Phone Juan José Michelle MD Primary Care Provider Juan José Michelle MD Unavailable Reason for Visit Reason Onset Date Comments Appointment 12/02/2018 Encounter Details Date Type Department Care Team Description 12/02/2018 Telephone [facility] Juan José Michelle MD Appointment [place] [address] [facility] [address] [facility], [address] [place] [address] [place] [address] [phone] Social History Tobacco Use Types Packs/Day Years [...] be reached at: Home number on file [phone] (home) or Cell number on file: Telephone Information: Best Time: any Can we leave a detailed message on this number? YES Call taken on 12/02/2018 at 4:39 PM by Tiffanie Mendes documented in this encounter Plan of Treatment Not on filedocumented as of this encounter Visit Diagnoses Not on filedocumented in this encounter Care Teams College Instructor Relationship Specialty Start Date End Date Juan José Michelle MD PCP - General Internal Medicine 05/08/15 01/09/21 Juan José Michelle MD Assigned PCP 07/26/16 12/30/20 [address] [place] [phone] documented as of this encounter
--- OUTSIDE RECORDS SUMMARY | 2022-07-19 12:16 | XMS_ITS | Encounter Summary ---
:1945 Author Organization [place] Address [address] [address] Care Team Providers Name Role Phone Juan José Michelle MD Primary Care Provider Juan José Michelle MD Unavailable Juan José Michelle MD Unavailable Reason for Visit Reason Onset Date Comments Pre-op information 05/14/2017 Encounter Details Date Type Department Care Team Description 05/14/2017 Telephone [facility] Juan José Michelle MD Pre-op information [place] [address] [facility] [address] [facility] [address] [place] [address] [place] [address] [phone] Social History Tobacco Use Types Packs/Day Years Used Date Smoking Tobacco: Former Cigars Smokeless Tobacco: Never Alcohol Use Standard Drinks/Week Comments No 0 (1 standard drink = 0.6 oz pure not fo r about 35 years (as of 2014) alcohol) Sex Assigned at Date Recorded Not on file documented as of this encounter Miscellaneous Notes Telephone Encounter - Rula Russell CMA - 05/16/2017 1:12 PM CDT Re-faxed form to # below. Mayela Russell- CRISTINE Telephone Encounter - Ralph Mercado - 05/16/2017 1:08 PM CDT Per Patient's Marilou they never received the Pre- OP Faxed to them Please Fax to [facility] # [phone] Attn: Juwan Thank you Telephone Encounter - Lianet Gordon - 05/16/2017 11:35 AM CDT Telephone Encounter - Rula Russell CMA - 05/16/2017 9:56 AM CDT Faxed Pre op Mayela Russell- CRISTINE Telephone Encounter - Rula Russell CMA - 05/14/2017 11:51 AM CDT Need to close Preop so can fax OV note. Thanks\ Mayela Russell- CRISTINE Telephone Encounter - Heather Alejandro - 05/14/2017 11:45 AM CDT Reason for Call: Pre-op information Detailed comments: Mara Dong calling. [facility] needs pre-op information Faxed. HNP and labs Mara from [facility] ph.[phone] Option 1 Best Time: Anytime Can we leave a detailed message on this number? YES Call taken on 05/14/2017 at 11:45 AM by Heather Alejandro documented in this encounter Plan of Treatment Not on filedocumented as of this encounter Visit Diagnoses Not on filedocumented in this encounter Care Teams Analytical Clerk Relationship Specialty Start Date End Date Juan José Michelle MD PCP - General Internal Medicine 05/08/15 01/09/21 Juan José Michelle MD PCP - Assigned PCP 07/26/16 11/17/18 [address] [place] [address] Juan José Michelle MD Assigned PCP 07/26/16 12/30/20 [address] [place] [address] documented as of this encounter
--- OUTSIDE RECORDS SUMMARY | 2022-07-19 12:16 | XMS_ITS | Encounter Summary ---
:1945 Author Organization [place] Address [address] [facility] [place] [address] Care Team Providers Name Role Phone Juan José Michelle MD Primary Care Provider Juan José Michelle MD Unavailable Juan José Michelle MD Unavailable Reason for Visit Reason Onset Date Comments requesting call 02/04/2018 Encounter Details Date Type Department Care Team Description 02/04/2018 Telephone [facility] Juan José Michelle MD requesting call [place] [address] [facility] [address] [place] [address], [address] [place] [address] [place] [address] [phone] Social History Tobacco Use Types Packs/Day Years [...] with No / Unsure 11/13/2020 9:41 AM 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 YES Call taken on 02/04/2018 at 2:13 PM by Rose Huang documented in this encounter Plan of Treatment Not on filedocumented as of this encounter Visit Diagnoses Not on filedocumented in this encounter Care Teams Licensed Final Expense Agents Relationship Specialty Start Date End Date Juan José Michelle MD PCP - General Internal Medicine 05/08/15 01/09/21 Juan José Michelle MD PCP - Assigned PCP 07/26/16 11/17/18 [address] [place] [address] Juan José Michelle MD Assigned PCP 07/26/16 12/30/20 [address] [place] [phone] documented as of this encounter
--- OUTSIDE RECORDS SUMMARY | 2022-07-19 12:16 | XMS_ITS | Encounter Summary ---
:1945 Author Organization [place] Address [address] [facility] [place] [address] Care Team Providers Name Role Phone Juan José Michelle MD Primary Care Provider Juan José Michelle MD Unavailable Juan José Michelle MD Unavailable Reason for Visit Reason Onset Date Comments Refill Request 12/10/2017 lisinopril/hctz Encounter Details Date Type Department Care Team Description 12/10/2017 Refill [facility] Juan José Michelle MD Refill Request [place] [address] [facility] [address] [address] [place] [phone] (Wo rk) Social History Tobacco Use [...] 11/27/17 1040 NA 140 Prescription approved per [facility] Refill Protocol. Jacqueline No, RN documented in this encounter Plan of Treatment Not on filedocumented as of this encounter Visit Diagnoses Diagnosis Benign essential hypertension Essential hypertension, benign documented in this encounter Care Teams Manager Trade Marketing Relationship Specialty Start Date End Date Juan José Michelle MD PCP - General Internal Medicine 05/08/15 01/09/21 Juan José Michelle MD PCP - Assigned PCP 07/26/16 11/17/18 [address] [place] [address] Juan José Michelle MD Assigned PCP 07/26/16 12/30/20 [address] [place] [address] documented as of this encounter
--- OUTSIDE RECORDS SUMMARY | 2022-07-19 12:16 | XMS_ITS | Encounter Summary ---
:1945 Author Organization [place] Address [address] [place] [address] Care Team Providers Name Role Phone Juan José Michelle MD Primary Care Provider Juan José Michelle MD Unavailable Reason for Visit Auth/Cert Specialty Diagnoses / Procedures Referred By Contact Refer red To Contact Surgery Diagnoses Left torn rotator cuff Rh Periop Services Procedures COMBINED ARTHROSCOPY SHOULDER, OPEN ROTATOR CUFF REPAIR COMBINED ARTHROSCOPY SHOULDER, OPEN DISTAL CLAVICLE RESECTION [address] [place], [place] [address] Phone: Fax: Referral ID Status Reason Start Date Expiration Date Visits Requ ested Visits Authorized [id number] 1 1 Encounter Details Date Type Department Care Team Description 12/09/2018 Hospital Encounter [facility] Mai Zunigator cuff [place] PreOP/PostOP MD Yulisa disorder, left [address] [facility] (Primary Dx) [place], [place] [facility] [address] [phone] [place] [address] Social History Tobacco Use Types Packs/Day Years [...] file Gets together: Not on file Attends nondenominational service: Not on file Active member of club or organization: Not on file Attends meetings of clubs or organizations: Not on file Relationship status: Not on file ??? Intimate partner violence: Fear of current or ex partner: Not on file Emotionally abused: Not on file Physically abused: Not on file Forced sexual activity: Not on file Other Topics Concern ??? Parent/sibling w/ CABG, RI or angioplasty before 65F 55M? Not Asked [...] Patient Alta Calhoun was set up at [facility] on May 25, 2015. Patient received a Resmed Airsense 10 Auto. Pressures were set at Auto 5 - 15 cm H2O. Patient???s ramp is 0 cm H2O for Off and FLEX/EPR is A Flex 2. Patient received a [employer] Mask name: Simplus Full Face mask Size Medium, heated tubing and heated humidifier. Patient is enrolled in the STM Program and does need to meet compliance. Patient has a follow up on TBD with LOIS Antonio. AKBAR CBARERA Taking Allergies: No Known Allergies Hospital Course: [...] Patient Alta Port was set up at [facility] on May 25, 2015. Patient received a Genero Airsense 10 Auto. Pressures were set at Auto 5 - 15 cm H2O. Patient???s ramp is 0 cm H2O for Off and FLEX/EPR is A Flex 2. Patient received a [employer] Mask name: Simplus Full Face mask Size [...] Marco Antonio Ledesma PA-C 12/09/2018 12:15 PM [facility] Angy [phone] documented in this encounter Discharge Instructions Discharge [...] Patient Alta Port was set up at [facility] on May 25, 2015. Patient received a Resmed Airsense 10 Auto. Pressures were set at Auto 5 - 15 cm H2O. Patient? s ramp is 0 cm H2O for Off and FLEX/EPR is A Flex 2. Patient receiv ed a [employer]ain [employer] Mask name: Simplus Full Face mask Size Medium, heated tubing and heated humidifier. Patient is enrolled in the STM Program and does need to meet comp liance. Patient has a follow up on TBD with LOIS Antonio. AKBAR CABRERA allopurinol (ZYLOPRIM) TAKE 1 TABLET BY 90 tablet 1 12/10/ 019 06/09/2019 300 MG MOUTH EVERY DAY [...] documented as of this encounter Progress Notes Derowitsch, Mat Jose Alfredo - 12/09/2018 9:35 AM CDT [facility] Progress Note FR Pre-Op Saw pt Al[facility] Calhoun per his request for profiling machine setup operator support before his procedure. His spouse Marilou lira. Brayan reported that he is having surgery on his rotator cuff after an injury from a fall. His Scientology alexis plays a significant role in his life, and he and Marilou are [facility]. Brayan requested prayer, which was provided. Informed them how they can request further profiling machine setup operator support once Brayan is admitted to the floor. No further plans; this author and other chaplains remain available per pt/family request. Mat Lehman M.Div., [facility] Staff Assistant At Surgery Pager [phone] documented in this encounter Miscellaneous Notes Op [...] surgery. ANESTHESIA: General. SURGEON: Mai Zuniga MD RADARMAN: Dipak Ledesma PA-C DESCRIPTION OF PROCEDURE: The [...] intraoperative complications. The patient went to the [facility] in stable condition. PLAN: The patient will be sent home with Keflex for 3 days for infection prophylaxis and aspirin 30 days for DVT prophylaxis and oxycodone for pain. MAI ZUNIGA MD MT: YU Name: ALTA CALHOUN MRN: [id number] Account: [id number] : 1945 Procedure Date: 12/09/2018 Document: [id number] documented in this encounter Plan of Treatment Not on filedocumented as of this encounter Procedures Procedure Name Priority Date/Time Associated Diagnosis Comme nts EXCISION, CLAVICLE, 12/09/2018 9:37 AM CDT Left torn r otator cuff DISTAL Special Needs Ht 5'7, Wt 238#, per H&PHos pital Assistant At Surgery requested preop ARTHROTOMY, SHOULDER, WITH ROTATOR 12/09/2018 9: 37 AM CDT Left torn rotator cuff CUFF REPAIR Special Needs Ht 5'7, Wt 238#, per H&PHos pital Assistant At Surgery requested preop documented in this encounter Visit [...] mg 0.3-0.5 mg, Intravenous, EVERY 10 MIN MN N, other, acute pain.?May administer if Respiratory [...] APRN CRNA)1049 (New Bag - Provider: [facility] Thyen, MANAGER OF TAX BUILDING INSPECTION ENGINEER)1117 (Anesthesia Volume Adjustment - Provider: Alta Hess [...] mg 0.3-0.5 mg, Intravenous, EVERY 10 MIN MN N, Starting Fri12/09/18 at 1157, Until Fri12/09/18 [...] II documented in this encounter Care Teams Construction Code Administrator Relationship Specialty Start Date End Date Juan José Michelle MD PCP - General Internal Medicine 05/08/15 01/09/21 Juan José Michelle MD Assigned PCP 07/26/16 12/30/20 [address] [facility] [address] [place] [address] documented as of this encounter
--- OUTSIDE RECORDS SUMMARY | 2022-07-19 12:16 | XMS_ITS | Encounter Summary ---
:1945 Author Organization [place] Address [address] [facility] [address] Care Team Providers Name Role Phone Juan José Michelle MD Primary Care Provider Juan José Michelle MD Unavailable Juan José Michelle MD Unavailable Reason for Visit Reason Comments Medication Refill allopurinol Encounter Details Date Type Department Care Team Description 06/15/2018 Refill [facility] Juan José Michelle MD Medication Refill [place] [address] [facility] [address] [facility] [address] [place] [address] (Wo rk) Social History Tobacco Use Types [...] 06/16/2018 11:40 AM CDT Prescription approved per [facility] Refill Protocol. Naz Angel RN- Triage [employer] Telephone Encounter - [...] HCT 48.6 PLT 199 For GICH ONLY: [id number] = WBC, [id number] = RBC Passed - ALT on file [...] (tophi) documented in this encounter Care Teams Corporate Planner Relationship Specialty Start Date End Date Juan [...]
--- OUTSIDE RECORDS SUMMARY | 2022-07-19 12:16 | XMS_ITS | Encounter Summary ---
:1945 Author Organization [place] Address [address] [place] [address] Care Team Providers Name Role Phone Juan José Michelle MD Primary Care Provider Juan José Michelle MD Unavailable Juan José Michelle MD Unavailable Encounter Details Date Type Department Care Team Description 12/03/[address] 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 Patient received a [...] 105.7 kg (233 lb) Labs reviewed in [employer] Reviewed and updated as needed this visit [...] his behalf by Amita Bingham, a trained regional medical director. The creation of this document is based the provider's statements to the regional medical director. 12/03/2017 OBJECTIVE: There were no vitals taken [...] vitamin D daily. Juan José Michelle MD [facility] The information in this document, created by the regional medical director for me, accurately reflects the [...] deficiency documented in this encounter Care Teams Contract Graphic Designer Relationship Specialty Start Date End Date Juan [...]
--- OUTSIDE RECORDS SUMMARY | 2022-07-19 12:16 | XMS_ITS | Encounter Summary ---
:1945 Author Organization [place] Address [address] [facility] [place] [address] Care Team Providers Name Role Phone Juan José Michelle MD Primary Care Provider Juan José Michelle MD Unavailable Juan José Michelle MD Unavailable Reason for Visit Reason Comments Medication Refill Encounter Details Date Type Department Care Team Description 08/05/2017 Refill [facility] Juan José Michelle MD Medication Refill [place] [address] [facility] [address] [facility] [address] [place] [address] [place] [address] [phone] Social History Tobacco Use Types Packs/Day Years [...] RN - 08/06/2017 10:08 AM CST duplicate T ATTENDANT OR ASSISTANT OPERATOR documented in this encounter Plan of Treatment Not on filedocumented as of this encounter Visit Diagnoses Diagnosis Benign essential hypertension Essential hypertension, benign documented in this encounter Care Teams Sweater Designer Relationship Specialty Start Date End Date [...]
--- OUTSIDE RECORDS SUMMARY | 2022-07-19 12:16 | XMS_ITS | Encounter Summary ---
:1945 Author Organization [place] Address [address] [place] [address] Care Team Providers Name Role Phone Juan [...] on filedocumented in this encounter Care Teams Binder And Box Builder Relationship Specialty Start Date End Date Juan José Michelle MD PCP - General Internal Medicine 05/08/15 01/09/21 Juan José Michelle MD Assigned PCP 07/26/16 12/30/20 [address] [place] [address] documented as of this encounter
--- OUTSIDE RECORDS SUMMARY | 2022-07-19 12:16 | XMS_ITS | Encounter Summary ---
:1945 Author Organization [place] Address [address] [facility] [place] [address] Care Team Providers Name Role Phone Juan José Michelle MD Primary Care Provider Juan José Michelle MD Unavailable Juan José Michelle MD Unavailable Reason for Visit Reason Comments Medication Refill Encounter Details Date Type Department Care Team Description 07/31/2017 Refill [facility] Juan José Michelle MD Medication Refill [place] [address] [facility] [address] [facility] [address] [place] [address] [place] [address] [phone] Social History Tobacco Use Types Packs/Day Years [...] 08/01/2017 12:10 PM CST Prescription approved per [facility] Refill Protocol. Jacqueline No RN EDO WORKER Telephone Encounter - Elysia Maza 07/31/2017 9:57 AM CST ITZ 05/12/17 Miguel Angel Maza RT(R) EDO WORKER documented in this encounter Plan of Treatment Not on filedocumented as of this encounter Visit Diagnoses Diagnosis Benign essential hypertension Essential hypertension, benign documented in this encounter Care Teams Scaler Relationship Specialty Start Date End Date Juan [...]
--- OUTSIDE RECORDS SUMMARY | 2022-07-19 12:16 | XMS_ITS | Encounter Summary ---
:1945 Author Organization [place] Address [address] [facility] [place] [address] Care Team Providers Name Role Phone Juan José Michelle MD Primary Care Provider Juan José Michelle MD Unavailable Juan José Michelle MD Unavailable Reason for Visit Reason Comments Medication Refill [place] Encounter Details Date Type Department Care Team Description 06/14/2018 Refill [facility] Juan José Michelle MD Medication Refill [place] [address] [facility] [facility] [address] [facility] [address] [facility] [place] [phone] (Wo rk) Social History Tobacco Use Types [...] 06/16/2018 11:52 AM CDT Prescription approved per [facility] Refill Protocol. Lissa Washington RN Requested Prescriptions [...] benign documented in this encounter Care Teams Professor Of Sociology Relationship Specialty Start Date End Date Juan José Michelle MD PCP - General Internal Medicine 05/08/15 01/09/21 Jua nJosé Michelle MD PCP - Assigned PCP 07/26/16 11/17/18 [address] [place] [address] Juan José Michelle MD Assigned PCP 07/26/16 12/30/20 [address] [place] [address] documented as of this encounter
--- OUTSIDE RECORDS SUMMARY | 2022-07-19 12:16 | XMS_ITS | Encounter Summary ---
:1945 Author Organization [place] Address [address] [place] [address] Care Team Providers Name Role Phone Juan José Michelle MD Primary Care Provider Juan José Michelle MD Unavailable Reason for Visit Reason Comments Fall Shoulder Injury Encounter Details Date Type Department Care Team Description 11/24/2018 Emergency [facility] Kacy Diaz E, Pedro Pablo fergusonldbernarda dislocation, [facility] Emergency Dep t DO left, initial [address] [facility] EMERGENCY PHYSICIANS [place] [address] [address] [phone] [place], [place] [address] (Wo rk) Social History Tobacco Use Types [...] sent through Care Everywhere. DISLOCATION: SHOULDER (REDUCED) (KOREAN)SEDATION, PROCEDURAL (KOREAN) documented in this encounter Medications at Time of Discharge Medication Sig Dispensed Refills Start Date End Date dorzolamide-timolol INSTILL 1 DROP INTO 2 019 (COSOPT) 2-0.5 % BOTH EYES TWICE ophthalmic solution DAILY order for DME Equipment being ordered: CPAP 0 Patient Ruddy Port was set up at [facility] on May 25, 2015. Patient received a [...] on pt. Respiratory status maintained throughout procedure. Mir Greer, RT on 11/24/2018 at 8:16 PM documented in [...] Pulse Heart Rate Resp SpO2 Height Weight 11/24/18 2100 113/80 -- -- 90 91 12 97 % -- -- 11/24/18 2045 115/82 -- -- -- 88 21 96 [...] fractures are identified, as per radiology. Procedure: [facility] Procedure Note Sedation: Performed by: Kacy [...] no discharge medications. Scribe Disclosure: I, Xiao Leonard, am serving as a scribe on 11/24/2018 at 7:04 PM to personally document services performed by Kacy Diaz DO based on my observations and the provider's statements to me. Xiao Leonard 11/24/2018 [facility] EMERGENCY DEPARTMENT Kacy Diaz DO 12/09/18 [...] identified.. TERESO MCMULLEN MD Kacy Diaz DO IMG DIAGNOSTIC IMAGING ORDER RASHID Shoulder XR, left [...] anteriorly. MANNY SCHMIDT MD Kacy Diaz DO [facility] DIAGNOSTIC IMAGING ORDER RASHID XR Shoulder Left [...] head. TERESO MCMULLEN MD Kacy Diaz DO [facility] DIAGNOSTIC IMAGING ORDER RASHID documented in this [...] this section may contain times in both ACCOUNT STRATEGIST and CDT. Scheduled Medication Order 11/22/2018 11/23/2018 11/24/2018 HYDROmorphone (DILAUDID) injection 1 mg (COMPLETED) 1904 (Given - Provider: Nisa Doss RN - Comment: per , start with 0.5 mg)1949 (Given - Provider: [...] 0.5 mg/kg ? 104.3 kg), Intravenous, ONCE, Fri11/24/18 at 1933, For 1 dose, For sedation of mechanically ventilated patients. propofol (DIPRIVAN) injection 10 mg/mL vial (COMPLETED) 2000 (Given - Provider: Nisa Doss RN) 18 mg, Intravenous, ONCE, On Fri11/24/18 at 2139, For 1 dose, For sedation of mechanically ventilated patients. documented in this encounter Care Teams Meat Service Team Member Relationship Specialty Start Date End Date Juan José Michelle MD PCP - General Internal Medicine 05/08/15 01/09/21 Juan José Michelle MD Assigned PCP 07/26/16 12/30/20 [address] [place] [address] documented as of this encounter
--- OUTSIDE RECORDS SUMMARY | 2022-07-19 12:16 | XMS_ITS | Encounter Summary ---
:1945 Author Organization [place] Address [address] [place] [address] Care Team Providers Name Role Phone Juan José Michelle MD Primary Care Provider Juan José Michelle MD Unavailable Juan José Michelle MD Unavailable Reason for Visit Reason Comments Foot Problems right foot callus on the gre at toe on the medial side, [id number] Encounter Details Date Type Department Care Team Description 06/11/2017 Office Visit [facility] Laurita Sims, Skin ca llus (Primary Dx); Clinic Hansen DPM, Podiatry/Foot Pes planus of both feet; [address] E and Ankle Surgery HAV (hallux abducto valgus), right; [place] [address] Neuropathy [phone] [address] [place], [place] [address] (Wo rk) Social History Tobacco Use Types [...] DR. SIMS'S CLINIC LOCATIONS: FRIDAY AM - [place] FRIDAY - [place] [address] [facility] [address] [place] [address] [place] [address] / FX [phone] / FX [phone] FRIDAY - [place] [address] [place] [address] / FX [phone] FRIDAY PM - [place] SCHEDULE SURGERY: [phone] APPOINTMENTS: [phone] [place] [address] BILLING QUESTIONS: [phone] / FX [phone] NEUROPATHY Peripheral neuropathy is damage of the [...] peripheral neuropathy is diabetes. According to the [employer], 60 to 70 percent of [...] 2000 IU daily), Alpha-Lipoic Acid (600-1800mg daily), Uwzfoe-B-Locwcziff (500-1000mg TID, L-methyl folate (1500mcgdaily) 4. TENS [...] week. 2. An electric callus removing device. Amope Pedi Perfect Electronic Pedicure Foot File and Callus [...] DME, Equipment being ordered: CPAP Patient Ruddy Port was set up at [facility] on May 25, 2015. Patient received a [...] up on TBD with LOIS Molina. AKBAR CABRERA, Disp: , Rfl: ALLERGIES: No Known Allergies [...] Neuropathy (H) PLAN: Reviewed [facility]. Discussed causes of keratomas. They are due [...] the great toe on the medial side, [id number] Initial BP 128/70 Ht 5' 7 (1.702 [...] site documented in this encounter Care Teams Technical Writing Lead/Mgr Relationship Specialty Start Date End Date Juan [...]
--- OUTSIDE RECORDS SUMMARY | 2022-07-19 12:16 | XMS_ITS | Encounter Summary ---
:1945 Author Organization [place] Address [address] 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; [address], [address] Hyperlipidemia LDL goal <130; [place] [address] [place] Encounter for routine adult health examination without abnormal findings; [phone] Vitamin D deficiency; [phone] Seborrheic neftali tosis, inflamed; (Work) Fatigue, unspecified type; [phone] Screening for p rostate cancer; (Fax) Special [...] of this encounter Patient Instructions Patient InstructionsEvie Sotelo CMA - 11/30/2018 9:00 AM CDT Preventive Health [...] colon documented in this encounter Care Teams Meat Passer Relationship Specialty Start Date End Date Juan José Michelle MD PCP - General Internal Medicine 05/08/15 01/09/21 Juan José Michelle MD Assigned PCP 07/26/16 12/30/20 [address] [place] [address] documented as of this encounter
--- OUTSIDE RECORDS SUMMARY | 2022-07-19 12:16 | XMS_ITS | Encounter Summary ---
:1945 Author Organization [place] Address [address] [facility] [place] [address] Care Team Providers Name Role Phone Juan [...] Type Department Care Team Description 07/02/2017 Refill [facility] Juan José Michelle MD Medication Refill J [place] [address] [facility] [address] [facility] [place], [address] [place] [address] [place] [address] [phone] Social History Tobacco Use Types Packs/Day Years [...] (tophi) documented in this encounter Care Teams Global President Relationship Specialty Start Date End Date uJan José Michelle MD PCP - General Internal Medicine 05/08/15 01/09/21 Juan José Michelle MD PCP - Assigned PCP 07/26/16 11/17/[address] [place] [phone] Thomas Singleton MD PCP - General Internal Medicine 01/10/21 07/08/[address] [place] [phone] Thomas Giron MD PCP - General Internal Medicine 07/09/[address] [place] [address] Juan José Michelle MD Assigned PCP 07/26/16 12/30/[address] [place] [address] Adonis Grullon, Assigned Neuroscience 11/29/20 PA-C Provider [address] [place] [address] Adonis Grullon, Assigned Sleep Provider 11/29/20 02/24/21 PA-C [address] [place] [address] Thomas Singleton MD Assigned PCP 12/31/20 02/07/[address] [place] [phone] Ruddy Giron, Assigned Musculoskeletal 01/28/21 DPM Provider [address] [facility] [address] [place], [place] [address] Juan José Michelle MD Assigned PCP 02/08/21 02/24/[address] [place] [address] Thomas Singleton MD Assigned PCP 02/25/21 06/23/[address] [place] [phone] Thomas Giron MD Assigned PCP 06/24/[address] [place], [place] [address] documented as of this encounter"
--- OUTSIDE RECORDS SUMMARY | 2022-07-19 12:16 | XMS_ITS | Encounter Summary ---
:1945 Author Organization [place] Address [address] [facility] [place] [address] Care Team Providers Name Role Phone Juan José Michelle MD Primary Care Provider Juan José Michelle MD Unavailable Juan José Michelle MD Unavailable Reason for Visit Reason Comments Medication Refill Encounter Details Date Type Department Care Team Description 06/24/2018 Refill [facility] Juan José Michelle MD Medication Refill [place] [address] [facility] [address] [facility] [address] [place] [address] [place] [address] [phone] Social History Tobacco Use Types Packs/Day Years [...] benign documented in this encounter Care Teams Specialty Foods Cook Relationship Specialty Start Date End Date Juan José Michelle MD PCP - General Internal Medicine 05/08/15 01/09/21 Juan José Michelle MD PCP - Assigned PCP 07/26/16 11/17/18 [address] [place] [address] Juan José Michelle MD Assigned PCP 07/26/16 12/30/20 [address] [place] [address] documented as of this encounter
--- OUTSIDE RECORDS SUMMARY | 2022-07-19 12:16 | XMS_ITS | Encounter Summary ---
:1945 Author Organization [place] Address [address] [place] [address] Care Team Providers Name Role Phone Juan José Michelle MD Primary Care Provider Juan José Michelle MD Unavailable Reason for Visit Auth/Cert Specialty Diagnoses / Procedures Referred By Contact Refer red To Contact Surgery Diagnoses Left torn rotator cuff Rh Periop Services Procedures COMBINED ARTHROSCOPY SHOULDER, OPEN ROTATOR CUFF REPAIR COMBINED ARTHROSCOPY SHOULDER, OPEN DISTAL CLAVICLE RESECTION [address] [place] [address] Phone: Fax: Referral ID Status Reason Start Date Expiration Date Visits Requ ested Visits Authorized [id number] 1 1 Encounter Details Date Type Department Care Team Description 12/09/2018 Surgery [facility] Mai Zuniga, Open left shoulder [place] PeriOp Servic alvin WISDOM rotator cuff repair with [address] [facility] repair of supraspinatus, [place], [place] [facility] infraspinatus and teres [phone] minor. Distal clavicle [phone] [place] [address] excision and [phone] acromioplasty (Work) Surgery Details Date/Time Status Location [...] file Gets together: Not on file Attends mormon service: Not on file Active member of club or organization: Not on file Attends meetings of clubs or organizations: Not on file Relationship status: Not on file ??? Intimate partner violence: Fear of current or ex partner: Not on file Emotionally abused: Not on file Physically abused: Not on file Forced sexual activity: Not on file Other Topics Concern ??? Parent/sibling w/ CABG, [place] or angioplasty before 65F 55M? Not Asked [...] Patient Alta Calhoun was set up at [facility] on May 25, 2015. Patient received a Reksoft Airsense 10 Auto. Pressures were set at Auto 5 - 15 cm H2O. Patient???s ramp is 0 cm H2O for Off and FLEX/EPR is A Flex 2. Patient received a [employer]ain [employer] Mask name: Simplus Full Face mask Size [...] Patient Alta Calhoun was set up at [facility] on May 25, 2015. Patient received a Resmed Airsense 10 Auto. Pressures were set at Auto 5 - 15 cm H2O. Patient???s ramp is 0 cm H2O for Off and FLEX/EPR is A Flex 2. Patient received a [employer]ain [employer] Mask name: Simplus Full Face mask Size [...] Antonio Ledesma PA-C 12/09/2018 12:15 PM [place] [phone] documented in this encounter Discharge Instructions Discharge [...] Equipment being ordered: CPAP 0 Patient Alta Calhoun was set up at [facility] on May 25, 2015. Patient received a [...] pt Alta Calhoun per his request for textile artist support before his procedure. His spouse Marilou lira. Brayan reported that he is having surgery on his rotator cuff after an injury from a fall. His Restorationist alexis plays a significant role in his life, and he and Marilou are affiliated with [facility] [employer]. Brayan requested prayer, which was provided. Informed them how they can request further textile artist support once Brayan is admitted to the floor. No further plans; this author and other chaplains remain available per pt/family request. Mat Lehman M.Div., [facility] Staff Net Web Application Developer Pager [phone] documented in this encounter Miscellaneous Notes Op [...] surgery. ANESTHESIA: General. SURGEON: Mai Zuniga MD ELECTRONICS TECHNOLOGY INSTRUCTOR: Dipak Ledesma PA-C DESCRIPTION OF PROCEDURE: The [...] intraoperative complications. The patient went to the [facility] in stable condition. PLAN: The patient will be sent home with Keflex for 3 days for infection prophylaxis and aspirin 30 days for DVT prophylaxis and oxycodone for pain. MAI ZUNIGA MD MT: YU Name: ALTA CALHOUN MRN: [id number] Account: [id number] : 1945 Procedure Date: 12/09/2018 Document: [id number] documented in this encounter Plan of Treatment Not on filedocumented as of this encounter Procedures Procedure Name Priority Date/Time Associated Diagnosis Comme nts EXCISION, CLAVICLE, 12/09/2018 9:37 AM CDT Left torn r otator cuff DISTAL Special Needs Ht 5'7, Wt 238#, per [facility] Net Web Application Developer requested preop ARTHROTOMY, SHOULDER, WITH ROTATOR 12/09/2018 9: 37 AM CDT Left torn rotator cuff CUFF REPAIR Special Needs Ht 5'7, Wt 238#, per [facility] Net Web Application Developer requested preop documented in this encounter Visit [...] mg 0.3-0.5 mg, Intravenous, EVERY 10 MIN KY N, other, acute pain.?May administer if Respiratory [...] mg 0.3-0.5 mg, Intravenous, EVERY 10 MIN KY N, Starting Fri12/09/18 at 1157, Until Fri12/09/18 [...] II documented in this encounter Care Teams Med Specialist Relationship Specialty Start Date End Date Juan José Michelle MD PCP - General Internal Medicine 05/08/15 01/09/21 Juan José Michelle MD Assigned PCP 07/26/16 12/30/20 [address] [place] [address] documented as of this encounter
--- OUTSIDE RECORDS SUMMARY | 2022-07-19 12:16 | XMS_ITS | Encounter Summary ---
:1945 Author Organization [place] Address [address] [facility] [place] [address] Care Team Providers Name Role Phone Juan José Michelle MD Primary Care Provider Juan José Michelle MD Unavailable Juan José Michelle MD Unavailable Reason for Visit Reason Comments Follow Up L hand infection, currently taking Cipro 500 mg QID for 7d Encounter Details Date Type Department Care Team Description 03/12/2018 Office Visit [facility] Juan José Michelle, Cellul itis of finger of left hand (Primary Dx); Clinic J Luis WISDOM Essential hypertension; [address] [facility], [address] [facility] DIANNE (obstructive sleep apnea); [address] 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 Follow Up For L hand infection, currently taking Cipro 500 mg QID for 7d The patient was seen in [facility] started having swelling of the left 3rd [...] Patient Ruddy Calhoun was set up at [facility] on May 25, 2015. Patient received a [...] behalf by Amita Bingham, a trained medical staff services coordinator. The creation of this document is based the provider's statements to the medical staff services coordinator. 03/12/2018 OBJECTIVE: BP 100/60 Pulse 98 Temp 98.8 ??F (37.1 ??C) (Tympanic) Ht 1.67 m (5' 5.75) Wt 107.1 kg (236lb 1.6 oz) SpO2 95% BMI 38.4 kg/m2 Body mass index is 38.4 kg/(m^2). Left Hand: Pt was seen in [facility] after puncture wound involving the 3rd and [...] weight loss routine Juan José Michelle MD [facility] The information in this document, created [...] adult documented in this encounter Care Teams Director Of Litigation Relationship Specialty Start Date End Date Juan José Michelle MD PCP - General Internal Medicine 05/08/15 01/09/21 Juan José Michelle MD PCP - Assigned PCP 07/26/16 11/17/18 [address] [place] [address] Juan José Michelle MD Assigned PCP 07/26/16 12/30/20 [address] [place] [phone] documented as of this encounter
--- OUTSIDE RECORDS SUMMARY | 2022-07-19 12:16 | XMS_ITS | Encounter Summary ---
:1945 Author Organization [place] Address [address] [facility] [place] [address] Care Team Providers Name Role Phone Juan José Michelle MD Primary Care Provider Juan José Michelle MD Unavailable Juan José Michelle MD Unavailable Reason for Visit Reason Comments Medication Refill Allopurinol, Dyazide Encounter Details Date Type Department Care Team Description 09/07/[address] [facility] Juan José Michelle MD Medication Refill [place] [address] [facility] (Allop[facility]ol, Dyazide) [address] [facility] [address] [place] [phone] (Wo rk) Social History Tobacco Use [...] 12:18 PM CST Allopurinol: Prescription approved per G Refill Protocol. Dyazide: Routing refill request to provider for review/approval because: Do you want pt on both Triamterene Hydrochlorothiazide AND Lisinopril Hydrochlorothiazide? 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
--- OUTSIDE RECORDS SUMMARY | 2022-07-19 12:16 | XMS_ITS | Encounter Summary ---
:1945 Author Organization [place] Address [address] [facility] [place] [address] Care Team Providers Name Role Phone Juan José Michelle MD Primary Care Provider Juan José Michelle MD Unavailable Reason for Visit Reason Comments Pre-Op Exam Encounter Details Date Type Department Care Team Description 12/04/2018 Office Visit [facility] Jada Brantley Preop gen eral physical exam (Primary Dx); Clinic J Luis Britton APRN THEATRICAL AGENT Tear of left rotator cuff, u nspecified tear extent; [address], Paul d obesity (H) [address] [place] [address] Social History Tobacco Use Types [...] APRN CNP - 12/04/2018 10:30 AM CDT [address] [address] Dept: [phone] PRE-OP EVALUATION: Today's date: 12/04/2018 Ruddy Calhoun [...] Facility: OR Fax number for surgical facility: [facility] Primary Physician: Juan José Michelle Type of [...] Patient Ruddy Calhoun was set up at [place] on May 25, 2015. Patient received a Resmed Airsense 10 Auto. Pressures were set at Auto 5 - 15 cm H2O. Patient???s ramp is 0 cm H2O for Off and FLEX/EPR is A Flex 2. Patient received a Jain & [employer] And Share Mask name: Simplus Full Face mask Size [...] cardiovascular risks for perioperative complications such as (PR, PE, VFib and 3?? AV Block): No [...] Signature Sodium 140 133 - 144 12/04/2018 [place] mmol/L 11:[address] [facility] Potassium 3.8 3.4 - 5.3 12/04/2018 [place] mmol/L 11:[address] [facility] Chloride 101 94 - 109 12/04/2018 [place] mmol/L 11:[address] [facility] Carbon Dioxide 33 (H) 20 - 32 12/04/2018 [place] mmol/L 11:[address] [facility] Anion Gap 6 3 - 14 12/04/2018 [place] mmol/L 11:[address] [facility] Glucose 98 70 - 99 12/04/2018 [place] mg/dL 11:[address] [facility] Urea Nitrogen 19 7 - 30 12/04/2018 [place] mg/dL 11:[address] [facility] Creatinine 1.23 0.66 - 12/04/2018 [place] 1.25 mg/dL 11:[address] [facility] GFR Estimate 58 (L) >60 12/04/2018 [place] mL/min/{1. 11:56 AM [facility] 73_m2} [facility] Comment: Non GFR Calc Starting 09/01/2018, serum creatinine ba sed estimated GFR (eGFR) will be calculated using the Chronic Kidney Dise [facility] Epidemiology Collaboration (CKD-EPI) equation. GFR Estimate If 67 >60 mL/min/{1.73_m2} 12/04/2018 11 :56 AM [facility] Comment: GFR Calc Starting 09/01/2018, serum creatinine ba sed estimated GFR (eGFR) will be calculated using the Chronic Kidney Dise [facility] Epidemiology Collaboration (CKD-EPI) equation. Calcium 9.5 8.5 - 10.1 mg/dL 12/04/2018 11:56 AM [facility] Specimen Anatomical Collection Method Collection Time Receive d Time (Source) Location / / Volume Laterality Blood specimen 12/04/2018 11:22 9 (specimen) AM CDT 11:23 AM CDT Jada Brantley APRN THEATRICAL AGENT LAB - BLOOD ORDERABLES Performing Organization Address City/State/ZIP Code Phon e Number [facility] [address] [address] [facility] [address] [address], U [phone] CBC with platelets and differential (12/04/2018 11:22 AM CDT) [facility] Method Time Signature WBC 10.4 4.0 - [...] [place] % Basophils 0.2 % 12/04/2018 [facility] 11:51 AM CDT CLINICS [place] Absolute 7.7 1.6 - 8.3 12/04/2018 [facility] Neutrophil 10e9/L 11:51 AM CDT CLINICS [place] Absolute 1.6 0.8 - 5.3 12/04/2018 [facility] Lymphocytes 10e9/L 11:51 AM CDT CLINICS [place] Absolute 0.8 0.0 - 1.3 12/04/[address] [facility] Monocytes 10e9/L 11:51 AM CDT CLINICS [place] Absolute 0.3 0.0 - 0.7 12/04/[address] [facility] Eosinophils 10e9/L 11:51 AM CDT CLINICS [place] Absolute 0.0 0.0 - 0.2 12/04/2018 [place] Basophils 10e9/L 11:51 AM CDT CLINICS [place] Diff Method Automated 12/04/2018 [place] Method 11:51 AM CDT CLINICS [place] Specimen Anatomical Collection Method Collection Time Receive d Time (Source) Location / / Volume Laterality Blood specimen 12/04/2018 11:22 9 (specimen) AM CDT 11:23 AM CDT Jada Brantley APRN THEATRICAL AGENT LAB - BLOOD ORDERABLES Performing Organization Address City/State/ZIP Code Phon e Number [facility] [address] [place] [address] EKG 12-lead complete w/read - Clinics (12/04/2018 11:09 AM CDT) Narrative This result has an attachment that is no t available. Jada Brantley APRN THEATRICAL AGENT ECG ORDERABLES documented in this encounter Visit Diagnoses Diagnosis Preop general physical exam - Primary Other specified pre-operative examinatio n Tear of left rotator cuff, unspecified t ear extent Morbid obesity (H) Morbid obesity documented in this encounter Care Teams Legal Research Analyst Relationship Specialty Start Date End Date Juan José Michelle MD PCP - General Internal Medicine 05/08/15 01/09/21 Juan José Michelle MD Assigned PCP 07/26/16 12/30/20 [address] [place] [phone] documented as of this encounter
--- OUTSIDE RECORDS SUMMARY | 2022-07-19 12:16 | XMS_ITS | Encounter Summary ---
:1945 Author Organization [place] Address [address] [facility] [place] [address] Care Team Providers Name Role Phone Juan José Michelle MD Primary Care Provider Juan José Michelle MD Unavailable Juan José Michelle MD Unavailable Encounter Details Date Type Department Care Team Description 05/15/2017 Orders Only [facility] cial screening for Angy Laboratory malignant neoplasms, colon [address] [place], [place] [phone] Social History Tobacco Use [...] Time Signature Occult Blood Negative NEG^Negati 05/15/2017 [facility] FIT ve 10:04 PM CDT [facility] Specimen Anatomical Collection Method Collection Time Receive d Time (Source) Location / / Volume Laterality Stool specimen 05/15/2017 10:15 7 5:54 (specimen) AM CDT PM CDT Juan José Michelle MD LAB - STOOLS ORDERABLES Performing Organization Address City/State/ZIP Code Phon e Number [facility] [address] [place] [address] [facility] documented in this encounter Visit Diagnoses Diagnosis Special screening for malignant neoplasm s, colon documented in this encounter Care Teams Substance Abuse Therapist Relationship Specialty Start Date End Date Juan José Michelle MD PCP - General Internal Medicine 05/08/15 01/09/21 Juan José Michelle MD PCP - Assigned PCP 07/26/16 11/17/18 [address] [place] [address] Juan José Michelle MD Assigned PCP 07/26/16 12/30/20 [address] [place] [address] documented as of this encounter
--- OUTSIDE RECORDS SUMMARY | 2022-07-19 12:16 | XMS_ITS | Encounter Summary ---
:1945 Author Organization [place] Address [address] [facility] 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 Iraheta. He requires evaluation and anesthesia risk assessment prior to undergoing surgery/procedure for treatment of right cataract . Proposed procedure: Date of Surgery/ Procedure: 05/20/17 Time of Surgery/ Procedure: [address] [place] [address]/Surgical Facility: [facility] [phone] Primary Physician: Juan José Michelle Type of [...] Patient Ruddy Calhoun was set up at [facility] on May 25, 2015. Patient received a [employer]med Airsense 10 Auto. Pressures were set at Auto 5 - 15 cm H2O. Patient???s ramp is 0 cm H2O for Off and FLEX/EPR is A Flex 2. Patient received a [employer] Mask name: Simplus Full Face mask Size [...] behalf by Matthew Dave, a trained medical observer. The creation of this document is based the provider's statements to the medical observer. Eladia Dave 9:47 AM, May 12, 2017 EXAM: [...] cardiovascular risks for perioperative complications such as (AK, PE, VFib and 3?? AV Block): No [...] in this document, created by the medical observer for me, accurately reflects the services I personally performed and the decisions made by me. I have reviewed and approved this document for accuracy prior to leaving the patient care area. Juan José Michelle MD 10:21 AM, 05/12/17 Copy of this evaluation report is provided to requesting physician. Jovita Preop Guidelines documented in this encounter Nursing [...] encounter: 233 lb (105.7 kg). Medication Reconciliation: karoline Hawthorne CMA documented in this encounter Plan [...] Time Signature Occult Blood Negative NEG^Negati 05/15/2017 [facility] FIT ve 10:04 PM CDT [facility] Specimen Anatomical Collection Method Collection Time Receive d Time (Source) Location / / Volume Laterality Stool specimen 05/15/2017 10:15 7 5:54 (specimen) AM CDT PM CDT Juan José Michelle MD LAB - STOOLS ORDERABLES Performing Organization Address City/State/ZIP Code Phon e Number [facility] [address] [place], [place] [id number] [place] [address] CBC with platelets (05/12/2017 10:15 AM CDT) P athologist Signature WBC 8.7 4.0 - 11.0 05/12/2017 [facility] 10e9/L 10:32 AM CDT [facility] RBC Count 4.84 4.4 - 5.9 05/12/2017 [facility] 10e12/L 10:32 AM CDT [facility] [place] Hemoglobin 14.5 13.3 - 05/12/2017 [facility] 17.7 g/dL 10:32 AM CDT [facility] Hematocrit 44.0 40.0 - 05/12/2017 [facility] 53.0 % 10:32 AM CDT [facility] [place] MCV 91 78 - 100 05/12/2017 [facility] fl 10:32 AM CDT [facility] [place] MCH 30.0 26.5 - 05/12/2017 [facility] 33.0 pg 10:32 AM CDT [facility] [place] MCHC 33.0 31.5 - 05/12/2017 [facility] 36.5 g/dL 10:32 AM CDT [facility] RDW 14.4 10.0 - 05/12/2017 [facility] 15.0 % 10:32 AM CDT [facility] Platelet Count 215 150 - 450 05/12/2017 [facility] 10e9/L 10:32 AM CDT [facility] Specimen Anatomical Collection Method Collection Time Receive d Time (Source) Location / / Volume Laterality Blood specimen 05/12/2017 10:15 7 (specimen) AM CDT 10:20 AM CDT Juan José Michelle MD LAB - BLOOD ORDERABLES Performing Organization Address City/State/ZIP Code Phon e Number [facility] [address] [place] [address] (ABNORMAL) Basic metabolic panel (05/12/2017 10:15 AM CDT) P athologist Signature Sodium 142 133 - 144 05/12/2017 [facility] mmol/L 3:00 PM CDT [place] Potassium 3.7 3.4 - 5.3 05/12/2017 [facility] mmol/L 3:00 PM CDT [place] Chloride 104 94 - 109 05/12/2017 [facility] mmol/L 3:00 PM CD[facility] Carbon Dioxide 32 20 - 32 05/12/2017 [facility] mmol/L 3:00 PM CDT [place] Anion Gap 6 3 - 14 05/12/2017 [facility] mmol/L 3:00 PM [facility] Glucose 88 70 - 99 05/12/2017 [facility] mg/dL 3:00 PM [facility] Comment: Non Fasting Urea Nitrogen 18 7 - 30 mg/dL 05/12/2017 3:00 PM [facility] Creatinine 1.22 0.66 - 1.25 mg/dL 05/12/2017 3:00 PM [facility] GFR Estimate 59 (L) >60 mL/min/1.7m2 05/12/2017 3:00 PM [facility] Comment: Non GFR Calc GFR Estimate If 71 >60 mL/min/1.7m2 05/12/2017 3:[address] [facility] Black [facility] Comment: GFR Calc Calcium 8.8 8.5 - 10.1 mg/dL 05/12/2017 3:00 PM T [facility] Specimen Anatomical Collection Method Collection Time Receive d Time (Source) Location / / Volume Laterality Blood specimen 05/12/2017 10:15 7 (specimen) AM CDT 10:20 AM CDT Juan José Michelle MD LAB - BLOOD ORDERABLES Performing Organization Address City/State/ZIP Code Phon e Number [facility] [address] [place] [address] documented in this encounter Visit Diagnoses Diagnosis [...] colon documented in this encounter Care Teams Laborer Demolition Relationship Specialty Start Date End Date Juan [...]
--- OUTSIDE RECORDS SUMMARY | 2022-07-19 12:16 | XMS_ITS | Encounter Summary ---
:1945 Author Organization [place] Address [address] [facility] [place] [address] Care Team Providers Name Role Phone Juan José Michelle MD Primary Care Provider Juan José Michelle MD Unavailable Juan José Michelle MD Unavailable Reason for Visit Reason Comments Medication Refill Encounter Details Date Type Department Care Team Description 03/08/2018 Refill [facility] Juan José Michelle MD Medication Refill [place] [address] [facility] [address] [facility] [address] [place] [address] [place] [address] [phone] Social History Tobacco Use Types Packs/Day Years [...] 03/10/2018 10:21 AM CDT Prescription approved per [facility] Refill Protocol. Mandy Gibbons RN Telephone Encounter [...] 4:30 PM CDT Office Visit with Juan José Michelle MD [facility] ([facility]) [address] [facility] [address] Sig: TAKE 1 CAPSULE BY MOUTH EVERY [...] benign documented in this encounter Care Teams Sr Community Manager Relationship Specialty Start Date End Date [...]
--- OUTSIDE RECORDS SUMMARY | 2022-07-19 12:16 | XMS_ITS | Encounter Summary ---
:1945 Author Organization [place] Address [address] [facility] [place] [address] Care Team Providers Name Role Phone Juan [...] on filedocumented in this encounter Care Teams Desktop Administrator Relationship Specialty Start Date End Date Juan José Michelle MD PCP - General Internal Medicine 05/08/15 01/09/21 Juan José Michelle MD Assigned PCP 07/26/16 12/30/20 [address] [place] [address] documented as of this encounter
--- OUTSIDE RECORDS SUMMARY | 2022-07-19 12:17 | XMS_ITS | Encounter Summary ---
:1945 Author Organization [place] Address [address] [place] [address] Care Team Providers Name Role Phone Juan José Michelle MD Primary Care Provider Encounter Details Date Type Department Care Team Description 05/24/2015 Telephone [facility] Bibiana Wilkinson [address] [facility] [address] [place] [address] Social History Tobacco Use Types Packs/Day [...] Pt requested to be setup at the [facility] location since itis near his work. Sent email with pt contact information to the [place] location to arrange an appointment. documented in this encounter Plan of Treatment Not on filedocumented as of this encounter Visit Diagnoses Not on filedocumented in this encounter Care Teams Siebel Developer Relationship Specialty Start Date End Date Juan José Michelle MD PCP - General Internal Medicine 05/08/15 01/09/21 documented as of this encounter
--- OUTSIDE RECORDS SUMMARY | 2022-07-19 12:17 | XMS_ITS | Encounter Summary ---
:1945 Author Organization [place] Address [address] [facility] [place] [address] Care Team Providers Name Role Phone Juan José Michelle MD Primary Care Provider Reason for Visit Reason Comments Sleep Problem Encounter Details Date Type Department Care Team Description 07/18/2015 Care Coordination [facility] Sleep Preet Grullon tt Sleep Problem Centers [place] Herbert PA-C [address] [place] [id number] [place] [address] [phone] Social History Tobacco Use Types Packs/Day Years Used Date Smoking Tobacco: Former Cigars Smokeless Tobacco: Never Alcohol Use Standard Drinks/Week Comments No 0 (1 standard drink = 0.6 oz pure not fo r about 35 years (as of 2014) alcohol) Sex Assigned at Date Recorded Not on file documented as of this encounter Progress Notes Ludin Grullon PA-C - 07/18/2015 9:54 AM CST [...] were placed for the oximetry and PSG. Ludin Grullon PA-C TECHNIST Maddy Brewer - 07/18/2015 8:09 AM CST Scan of overnight oximetry on current cpap settings results, 07/13/2015. Route to WILBERT Antonio, for his review. TECHNIST documented in this encounter Miscellaneous Notes Addendum Note - Ludin Grullon PA-C - 07/18/2015 10:19 AM PYROTECHNIST Addended by: LUDIN GRULLON on: 07/18/2015 10:19 AM Modules accepted: Orders, SmartSet TECHNIST documented in this encounter Plan of Treatment Not on filedocumented as of this encounter Procedures Procedure Name Priority Date/Time Associated Diagnosis Comme nts OXIMETRY - HIM SCAN Routine 07/18/2015 documented in this encounter Results Comprehensive Sleep Study (08/31/2015) Narrative This result has an attachment that is no t available. Ludin Grullon PA-C PROCEDURES Overnight oximetry study (08/08/2015) Narrative This result has an attachment that is no t available. Ludin Grullon PA-C IP RESPIRATORY CARE Oximetry - HIM Scan (07/18/2015) Narrative This result has an attachment that is no t available. Ludin Grullon PA-C PFT ORDERABLES documented in this encounter Visit Diagnoses Diagnosis DIANNE (obstructive sleep apnea) - Primary Obstructive sleep apnea (adult) (pediatr ic) Nocturnal hypoxemia Hypoxemia documented in this encounter Care Teams Computer Help Desk Representative Relationship Specialty Start Date End Date Juan José Michelle MD PCP - General Internal Medicine 05/08/15 01/09/21 documented as of this encounter
--- OUTSIDE RECORDS SUMMARY | 2022-07-19 12:17 | XMS_ITS | Encounter Summary ---
:1945 Author Organization [place] Address [address] [place] [address] Care Team Providers Name Role Phone Juan José Michelle MD Primary Care Provider Reason for Visit Reason Onset Date Comments Other 07/12/2015 Encounter Details Date Type Department Care Team Description 07/12/2015 Telephone [facility] Stefan Garza i, RT Other [place] [address] [facility] [address] [place] [address] Social History Tobacco Use Types [...] 2:40 PM CDT Pt stopped in at [facility] and picked up ALLEGRA device. Instructed Pt to perform study on CPAP. Pt states understanding. Telephone Encounter - Charity Garza RT - 07/12/2015 4:30 PM CDT Pt was scheduled to pear picker ALLEGRA device for study on 07/06/15 and was a no-show. I called and spoke with on the phone today with Pt in the background on speaker. Pt agreed to stop into [facility] to pear picker device by the end of day beofre close and was a no-show again. documented in this encounter Plan of Treatment Not on filedocumented as of this encounter Visit Diagnoses Not on filedocumented in this encounter Care Teams Watch Repairer Apprentice Relationship Specialty Start Date End Date Juan José Michelle MD PCP - General Internal Medicine 05/08/15 01/09/21 documented as of this encounter
--- OUTSIDE RECORDS SUMMARY | 2022-07-19 12:17 | XMS_ITS | Encounter Summary ---
:1945 Author Organization [place] Address [address] [facility] [place] [address] Care Team Providers Name Role Phone Juan José Michelle MD Primary Care Provider Reason for Visit Reason Comments Fatigue (Routine) - Closed Specialty Diagnoses / Procedures Referred By Contact Refer red To Contact Sleep Medicine Diagnoses tcm titration Sleep Center Procedures PSG DIAGNOSTIC [address] [facility] [address] [place] [address] Phone: Referral ID Status Reason Start Date Expiration Date Visits Requ ested Visits Authorized [id number] Closed 08/18/2015 08/17/2016 1 1 Encounter Details Date Type Department Care Team Description 08/29/2015 Therapy Visit [facility] Noc turnal hypoxemia; [facility] [place] DIANNE (obstructive sleep apnea ) [address] [facility] [address] [place] [address] Social History Tobacco Use Types [...] pressure. Patient reports feeling refreshed in AM. PROCESSING SUPERVISOR documented in this encounter Procedure Notes Joshua Ruddy Em MD - 08/30/2015 5:50 PM CST Images from the original note were not included. SLEEP STUDY INTERPRETATION TITRATION STUDY Patient: Ruddy Calhoun Date of : 1945 Study Date: 08/29/2015 Referring Physician: MD Michelle Gary Ordering Physician: WILBERT Grullon Bennett Indications for Polysomnography: The patient is a 69 y old Male who is 5' 6 and weighs 234.1 lbs. His BMI is 38.1, [place] sleepiness scale is 9/24 and neck size [...] Code(s): G47.33, G47.36, G47.9 Ruddy Lewis MD PROCESSING SUPERVISOR documented in this encounter Plan of Treatment Not on filedocumented as of this encounter Procedures Procedure Name Priority Date/Time Associated Diagnosis Comme nts MORNING NEWS ANCHOR COMPREHENSIVE SLEEP Routine 08/31/2015 [place] hypoxemia DIANNE (obstructive sleep apnea ) documented in this encounter Results Comprehensive Sleep Study (08/31/2015) Narrative This result has an attachment that is no t available. Adonis Grullon PA-C PROCEDURES documented in this encounter Visit Diagnoses Diagnosis Nocturnal hypoxemia Hypoxemia DIANNE (obstructive sleep apnea) Obstructive sleep apnea (adult) (pediatr ic) documented in this encounter Care Teams Driftman Relationship Specialty Start Date End Date Juan José Michelle MD PCP - General Internal Medicine 05/08/15 01/09/21 documented as of this encounter
--- OUTSIDE RECORDS SUMMARY | 2022-07-19 12:17 | XMS_ITS | Encounter Summary ---
:1945 Author Organization [place] Address [address] [facility] [place] [address] Care Team Providers Name Role Phone Juan José Michelle MD Primary Care Provider Reason for Visit Reason Comments Sleep Problem Encounter Details Date Type Department Care Team Description 05/31/2015 Documentation Only [place] [facility] Sleep Problem [facility] [address] [place] [address], [address] [place] [phone] Social History Tobacco Use Types Packs/Day [...] - 05/31/2015 9:16 AM CDT 3 DAY [facility] VISIT Patient contacted for 3 day STM visit: Left message for patient to return call. Current settings: 5-15 cm H2O Action plan: Pt to have f/u 14 day STM visit. documented in this encounter Plan of Treatment Not on filedocumented as of this encounter Visit Diagnoses Not on filedocumented in this encounter Care Teams Educational Therapy Teacher Relationship Specialty Start Date End Date Juan José Michelle MD PCP - General Internal Medicine 05/08/15 01/09/21 documented as of this encounter
--- OUTSIDE RECORDS SUMMARY | 2022-07-19 12:17 | XMS_ITS | Encounter Summary ---
:1945 Author Organization [place] Address [address] [place] [address] Care Team Providers Name Role Phone Juan José Michelle MD Primary Care Provider Reason for Visit Reason Onset Date Comments Results 08/18/2015 oximetry Encounter Details Date Type Department Care Team Description 08/18/2015 Telephone [facility] Sleep Adonis Grullon ra, Results (oximetry) [facility] JC [address] [facility] [address] [facility] [address] [place] [address] [place] [address] (Wo rk) Social History Tobacco Use [...] Adonis Grullon PA-C - 08/18/2015 9:43 AM CHEMICAL LAB SUPERVISOR Oximetry results were obtained for the date [...] arranged after his study. Adonis Grullon PA-C ICAL LAB SUPERVISOR documented in this encounter Plan of Treatment Not on filedocumented as of this encounter Visit Diagnoses Not on filedocumented in this encounter Care Teams Trimming Machine Set Up Operator Relationship Specialty Start Date End Date Juan José Michelle MD PCP - General Internal Medicine 05/08/15 01/09/21 documented as of this encounter
--- OUTSIDE RECORDS SUMMARY | 2022-07-19 12:17 | XMS_ITS | Encounter Summary ---
:1945 Author Organization [place] Address [address] [facility] [place] [address] Care Team Providers Name Role Phone Juan José Michelle MD Primary Care Provider Reason for Visit Reason Comments Sleep Apnea Encounter Details Date Type Department Care Team Description 07/20/2015 Care Coordination [facility] Sleep Preet Grullon, Sleep Ap[facility] [place] PA-C [address] [facility] [address] [facility] [address] [place] [address] [place] [address] (Wo rk) Social History Tobacco [...] Brewer - 07/20/2015 8:05 AM CST Emailed caralie at [facility] to have repeat ALLEGRA on pap current settings. ING MACHINE REPAIRER documented in this encounter Plan of Treatment Not on filedocumented as of this encounter Visit Diagnoses Not on filedocumented in this encounter Care Teams Electric Tape Slitter Relationship Specialty Start Date End Date Juan José Michelle MD PCP - General Internal Medicine 05/08/15 01/09/21 documented as of this encounter
--- OUTSIDE RECORDS SUMMARY | 2022-07-19 12:17 | XMS_ITS | Encounter Summary ---
:1945 Author Organization [place] Address [address] [facility] [place] [address] Care Team Providers Name Role Phone Juan José Michelle MD Primary Care Provider Reason for Visit Reason Comments Sleep Problem (Routine) - Closed Specialty Diagnoses / Procedures Referred By Contact Refer red To Contact Sleep Medicine Diagnoses bedtime 10:45P Sleep Center Procedures HST OCCUPATIONAL HEALTH AND SAFETY ADVISER [address] [facility] [address] [place] [address] Phone: Referral ID Status Reason Start Date Expiration Date Visits Requ ested Visits Authorized [id number] Closed 05/08/2015 05/07/2016 1 1 Encounter Details Date Type Department Care Team Description 05/11/2015 Therapy Visit [facility] Adonis Grullon, [facility] [address] [facility] [address] [facility] [address] [place] [address] [place], [place] [phone] (Wo rk) Social History Tobacco Use Types [...] with a BMI of 37.8 and an [place] Sleepiness Scale score of 9/24 who has [...] apneas, 5 mixed apneas, 6 central apneas [id number] hypopneas, for a combined apnea-hypopnea index of [...] Sleep-related hypoxemia 327.26. JOSELO HAYWARD MD [place]: [facility] Name: RUDDY CALHOUN MRN: [id number] Account: [id number] : 1945 Visit Date: 05/11/2015 Document: [id number] Maddy Brewer E - 05/11/2015 3:06 PM CDT Ruddy given instruction in use of HST. HST programmed to start recording at 10:45P tonight. He will return on 05/12/15. [employer] is his part B insurance, insurance verified by financial securing, out pt benefits are 50.00 copay for any service. He can be setup by [facility] for pap if needed. documented in [...] t available. Adonis Grullon PA-C PFT ORDERABLES Sleep Study - HIM Scan (05/15/2015) Narrative This result has an attachment that is no t available. Adonis Grullon PA-C PFT ORDERABLES documented in this encounter Visit Diagnoses Not on filedocumented in this encounter Care Teams Body Shop Estimator Relationship Specialty Start Date End Date Juan José Michelle MD PCP - General Internal Medicine 05/08/15 01/09/21 documented as of this encounter
--- OUTSIDE RECORDS SUMMARY | 2022-07-19 12:17 | XMS_ITS | Encounter Summary ---
:1945 Author Organization [place] Address [address] [place] [address] Care Team Providers Name Role Phone Juan José Michelle MD Primary Care Provider Reason for Visit Reason Comments Arthritis left foot Encounter Details Date Type Department Care Team Description 06/10/2016 Office Visit [facility] Jada Brantley Acute idi opathic gout Clinic J Luis Britton APRN IT SOLUTIONS ARCHITECT of left foot (Primary [address], [place]) [address] [place] [address] Social History Tobacco Use Types [...] documented in this encounter Patient Instructions Patient InstructionsEaton, Jada Reba, ELEMENTARY READING TUTOR IT SOLUTIONS ARCHITECT - 06/10/2016 4:02 PM CDT Begin taking [...] Patient Ruddy Calhoun was set up at [place] on May 25, 2015. Patient received a Resmed Airsense 10 Auto. Pressures were set at Auto 5 - 15 cm H2O. Patient???s ramp is 0 cm H2O for Off and FLEX/EPR is A Flex 2. Patient received a [employer] Mask name: Simplus Full Face mask Size Medium, heated tubing and heated humidifier. Patient is enrolled in the STM Program and does need to meet compliance. Patient has a follow up on TBD with LOIS Antonio. AKBAR ADAIRONG No Known Allergies ROS: Constitutional, HEENT, cardiovascular, [...] Michelle as planned Jada Brantley APRN CNP [facility] documented in this encounter Nursing Notes [...] (99.791 kg). BP completed using cuff size: large Caitlyn Gallo CMA documented in this encounter Plan [...] Time Signature Sodium 139 133 - 144 [place] mmol/L [facility] Potassium 3.5 3.4 - 5.3 [place] mmol/L [facility] Chloride 101 94 - 109 [place] mmol/L [facility] Carbon Dioxide 32 20 - 32 [place] mmol/L [facility] Anion Gap 6 3 - 14 [place] mmol/L [facility] Glucose 89 70 - 99 [place] mg/dL [facility] Urea Nitrogen 17 7 - 30 [place] mg/dL [facility] Creatinine 1.23 0.66 - [place] 1.25 mg/dL [facility] GFR Estimate 58 (L) >60 [place] mL/min/1.7 CLINICS m2 [facility] Comment: Non GFR Calc GFR Estimate If Black 70 >60 mL/min/1.7m2 [facility] Comment: GFR Calc Calcium 8.7 8.5 - 10.1 mg/dL [place] CLIN ICS [facility] Specimen Anatomical Collection Method Collection Time Receive d Time (Source) Location / / Volume Laterality Blood specimen 06/10/2016 4:15 PM 016 4:16 (specimen) CDT PM CDT Jada Brantley APRN, CNP LAB - BLOOD ORDERABLES Performing Organization Address City/[facility]/ZIP Code Phon e Number [facility] [address] [place] [address] (ABNORMAL) Uric acid (06/10/2016 4:15 PM CDT) P athologist Signature Uric Acid 8.7 (H) 3.5 - 7.2 [facility] mg/dL [facility] Specimen Anatomical Collection Method Collection Time Receive d Time (Source) Location / / Volume Laterality Blood specimen 06/10/2016 4:15 PM 016 4:16 (specimen) CDT PM CDT Jada Brantley APRN, CNP LAB - BLOOD ORDERABLES Performing Organization Address City/State/ZIP Code Phon e Number [facility] [address] [place] [address] (ABNORMAL) CBC with platelets differential (06/10/2016 4:15 PM CDT) [facility] Method Time Signature WBC 14.6 (H) 4.0 - [place] 11.0 [facility] 10e9/L [place] RBC Count 4.89 4.4 - 5.9 [place] 10e12/L [facility] [place] Hemoglobin 14.6 13.3 - [place] 17.7 g/dL [facility] Hematocrit 44.0 40.0 - [place] 53.0 % [facility] MCV 90 78 - 100 [place] fl [facility] MCH 29.9 26.5 - [place] 33.0 pg [facility] MCHC 33.2 31.5 - [place] 36.5 g/dL [facility] RDW 14.0 10.0 - [place] 15.0 % [facility] Platelet Count 230 150 - 450 [place] 10e9/L [facility] Diff Method Automated [facility] Method [facility] [place] % Neutrophils 83.3 % [facility] [place] % Lymphocytes 7.3 % [facility] [place] % Monocytes 9.0 % [facility] [place] % Eosinophils 0.3 % [facility] [place] % Basophils 0.1 % [facility] [place] Absolute 12.2 (H) 1.6 - 8.3 [place] Neutrophil 10e9/L [facility] [place] Absolute 1.1 0.8 - 5.3 [place] Lymphocytes 10e9/L [facility] [place] Absolute 1.3 0.0 - 1.3 [place] Monocytes 10e9/L [facility] [place] Absolute 0.1 0.0 - 0.7 [place] Eosinophils 10e9/L [facility] [place] Absolute 0.0 0.0 - 0.2 [place] Basophils 10e9/L [facility] Specimen Anatomical Collection Method Collection Time Receive d Time (Source) Location / / Volume Laterality Blood specimen 06/10/2016 4:15 PM 016 4:16 (specimen) CDT PM CDT Jada Brantley ELEMENTARY READING TUTOR IT SOLUTIONS ARCHITECT LAB - BLOOD ORDERABLES Performing Organization Address City/State/ZIP Code Phon e Number [facility] [address] [place] [address] documented in this encounter Visit Diagnoses Diagnosis Acute idiopathic gout of left foot - Patricia cari documented in this encounter Care Teams Pineapple Plantation Manager Relationship Specialty Start Date End Date Juan José Michelle MD PCP - General Internal Medicine 05/08/15 01/09/21 documented as of this encounter
--- OUTSIDE RECORDS SUMMARY | 2022-07-19 12:17 | XMS_ITS | Encounter Summary ---
:1945 Author Organization [place] Address [address] [place] [address] Care Team Providers Name Role Phone Juan José Michelle MD Primary Care Provider Reason for Visit Reason Comments Sleep Problem CPAP PRESSURE CHANGE Encounter Details Date Type Department Care Team Description 10/02/2015 [facility] Angy PRESSURE CHANGE) [address] [address] Social History Tobacco Use Types Packs/Day Years Used Date Smoking Tobacco: Former Cigars Smokeless Tobacco: Never Alcohol Use Standard Drinks/Week Comments No 0 (1 standard drink = 0.6 oz pure not fo r about 35 years (as of 2014) alcohol) Sex Assigned at Date Recorded Not on file documented as of this encounter Progress Notes Kayla Merdano - 10/02/2015 11:29 AM CST Changed patient's pressures remotely through ResMed Airview to auto 11-15 cmH2O OR WIND INSTRUMENT REPAIRER documented in this encounter Plan of Treatment Not on filedocumented as of this encounter Visit Diagnoses Not on filedocumented in this encounter Care Teams Plastics Scientist Relationship Specialty Start Date End Date Juan José Michelle MD PCP - General Internal Medicine 05/08/15 01/09/21 documented as of this encounter
--- OUTSIDE RECORDS SUMMARY | 2022-07-19 12:17 | XMS_ITS | Encounter Summary ---
:1945 Author Organization [place] Address [address] [facility] [place] [address] Care Team Providers Name Role Phone Juan José Michelle MD Primary Care Provider Reason for Visit Reason Comments Sleep Problem Encounter Details Date Type Department Care Team Description 08/08/2015 Care Coordination [facility] Sleep Preet Grullon Sleep Problem Centers Angy Herbert PA-C [address] [facility] [address] [place] [address] [address] [place] [address] [place] [address] [phone] Social History Tobacco Use Types Packs/Day Years [...] Route to WILBERT Antonio, for his review. IAN TEACHER documented in this encounter Miscellaneous Notes Addendum Note - Maddy Brewer - 08/08/2015 5:33 PM ITALIAN TEACHER Addended by: MADDY BREWER on: 08/08/2015 05:33 PM Modules accepted: Orders IAN TEACHER documented in this encounter Plan of [...] ic) documented in this encounter Care Teams Dermatology Procedural Physician Relationship Specialty Start Date End Date Juan José Michelle MD PCP - General Internal Medicine 05/08/15 01/09/21 documented as of this encounter
--- OUTSIDE RECORDS SUMMARY | 2022-07-19 12:17 | XMS_ITS | Encounter Summary ---
:1945 Author Organization [place] Address [address] [facility] [address] [place] [address] Care Team Providers Name Role Phone Juan José Michelle MD Primary Care Provider Reason for Visit Reason Comments RECHECK Encounter Details Date Type Department Care Team Description 09/29/2015 Office Visit [facility] Adonis Grullon DIANNE (obs tructive sleep apnea) (Primary Dx); Sleep Centers J Luis Herbert PA-C Sleep related hypoventilation/hypoxemia in other disease [address] [facility] [address] [place] [address] [address] [place], [place] [address] J Luis [place] [address] Social History Tobacco [...] Comments Blood Pressure 133/79 09/29/2015 10:00 AM COPPER MINER Pulse 89 09/29/2015 10:00 AM COPPER MINER Temperature 36.4 ??C (97.5 ??F) 09/29/2015 10:00 AM COPPER MINER Respiratory Rate - - Oxygen Saturation 95% 09/29/2015 10:00 AM COPPER MINER Inhaled Oxygen Concentration - - Weight 111.1 kg (245 lb) 09/29/2015 10:00 AM COPPER MINER Height - - Body Mass Index 39.54 07/04/2015 11:01 AM CDT documented in this encounter Progress Notes Adonis Grullon PA-C - 09/29/2015 10:45 AM CST Sleep Study Follow-Up Visit: Date on this visit: 09/29/2015 Ruddy Calhoun comes in today for follow-up of his titration sleep study done on 08/29/2015 at the [facility] for previous diagnosis of [...] bother him. He will be going to [facility] for 3 weeks, soon. Past medical/surgical [...] with patient, all of which were spent [id number] counseling, consulting,coordinating plan of care. Adonis Grullon PA-C CC: No ref. provider found ER MINER documented in this encounter Plan of Treatment Not on filedocumented as of this encounter Visit Diagnoses Diagnosis DIANNE (obstructive sleep apnea) - Primary Obstructive sleep apnea (adult) (pediatr ic) Sleep related hypoventilation/hypoxemia in other disease Organic sleep apnea, unspecified documented in this encounter Care Teams Field Rep Relationship Specialty Start Date End Date Juan José Michelle MD PCP - General Internal Medicine 05/08/15 01/09/21 documented as of this encounter
--- OUTSIDE RECORDS SUMMARY | 2022-07-19 12:17 | XMS_ITS | Encounter Summary ---
:1945 Author Organization [place] Address [address] [place] [address] Care Team Providers Name Role Phone Juan José Michelle MD Primary Care Provider Reason for Visit Reason Comments RECHECK Follow up dianne Encounter Details Date Type Department Care Team Description 07/04/2015 Office Visit [facility] Adonis Grullon DIANNE (obs tructive sleep apnea) (Primary Dx); Sleep Centers Angy Herbert PA-C Nocturnal hypoxemia; [address] [facility] [address] [place] [address] [address] [place] [address] [place] [address] Social History Tobacco Use Types [...] bathroom, use a nightlight Online Programs ??? www.[employer].me (pronounced shut eye). There is a fee for this program. Enter the code ???[facility]?? if you decide to enroll in this program. ??? www.[employer] (pronounced sleep ee oh). There is a fee for this program. Enter the code ???[facility]?? if you decide to enroll in this [...] relax. This list is for information only. [facility] is notresponsible for the quality of services or the actions of any person or organization. Progressive Muscle Relaxation (PMR): ??? http://www.[employer]/ctwbjbdbwtu-lfmiji-xbwyuxmuks-exercise.html ??? http://studentsupport.[facility]/counseling/resources/self-help/relaxat zrx-aep-wfxlqm-management/ Deep Breathing Exercises: ??? http://www.[employer]/breathing-awareness.html Meditation: ??? www.[employer] ??? www.fqx-jrfxys-tgxvqdabhz-site.Social Shop You may have to pay for some of these resources. Guided Imagery: ??? http://www.[employer]/cdusih-kqswnag-dxjrccr.html ??? http://[employer]/library/wjtukfpbel-nypobu-pmzydww/ Counseling / Behavioral Health [facility] Visit www.[facility]ier.org or call [phone] to find a clinic close to you. Or call [phone] for [facility]. documented in this encounter Progress Notes Adonis Grullon PA-C - 07/04/2015 11:04 AM CDT Sleep Study Follow-Up Visit: Date on this visit: 07/04/2015 Ruddy Calhoun comes in today for follow-up of his CPAP use for severe DIANNE and hypoxemia. He was initially seen at the [facility] for previous diagnosis of [...] with patient, all of which were spent [id number] counseling, consulting,coordinating plan of care. Adonis Grullon PA-C CC: No ref. provider found documented in this encounter Plan of Treatment Not on filedocumented as of this encounter Visit Diagnoses Diagnosis DIANNE (obstructive sleep apnea) - Primary Obstructive sleep apnea (adult) (pediatr ic) Nocturnal hypoxemia Hypoxemia Insomnia Insomnia, unspecified documented in this encounter Care Teams R D Manager Relationship Specialty Start Date End Date Juan José Michelle MD PCP - General Internal Medicine 05/08/15 01/09/21 documented as of this encounter
--- OUTSIDE RECORDS SUMMARY | 2022-07-19 12:17 | XMS_ITS | Encounter Summary ---
:1945 Author Organization [place] Address [address] [place] [address] Care Team Providers Name Role Phone Juan José Michelle MD Primary Care Provider Reason for Visit Reason Comments Derm Problem Arthritis Encounter Details Date Type Department Care Team Description 06/27/2016 Office Visit [facility] Juan José Michelle, Other secondary acute gout of multiple sites (Primary Dx); Clinic Angy [place]IS[place] Non morbid obesity due to excess calorie s; [address], [address] Seborrheic keratosis, inflamed; [address] Benign essential hypertension; [place] [address] [place] Acute gouty arthropathy [phone] [address] Social History Tobacco Use Types Packs/Day [...] Patient Ruddy Calhoun was set up at [place] on May 25, 2015. Patient received a Resmed Airsense 10 Auto. Pressures were set at Auto 5 - 15 cm H2O. Patient???s ramp is 0 cm H2O for Off and FLEX/EPR is A Flex 2. Patient received a [employer] Mask name: Simplus Full Face mask Size [...] 4.Seborrheic keratosis inflamed Juan José Michelle MD [facility] LING MACHINE OPERATOR documented in this encounter Nursing Notes Lianet [...] 3:50 PM Seborrheic LESION, UP TO 14 DOUBLING MACHINE OPERATOR keratosis, inflamed URIC ACID Routine 06/27/2016 6:17 [...] Time Signature Sodium 139 133 - 144 [place] mmol/L [facility] Potassium 3.7 3.4 - 5.3 [place] mmol/L [facility] Chloride 103 94 - 109 [place] mmol/L [facility] Carbon Dioxide 33 (H) 20 - 32 [place] mmol/L [facility] Anion Gap 3 3 - 14 [place] mmol/L [facility] Glucose 85 70 - 99 [place] mg/dL [facility] Urea Nitrogen 18 7 - 30 [place] mg/dL [facility] Creatinine 1.17 0.66 - [place] 1.25 mg/dL [facility] GFR Estimate 62 >60 [place] mL/min/1.7 CLINICS m2 [facility] Comment: Non GFR Calc GFR Estimate If Black 75 >60 mL/min/1.7m2 [facility] Comment: GFR Calc Calcium 8.9 8.5 - 10.1 mg/dL [place] CLIN ICS [facility] Specimen Anatomical Collection Method Collection Time Receive d Time (Source) Location / / Volume Laterality Blood specimen 06/27/2016 6:17 PM 016 6:18 (specimen) CDT PM CDT Juan José Michelle MD LAB - BLOOD ORDERABLES Performing Organization Address City/State/ZIP Code Phon e Number [facility] [address] [place] [address] Uric acid (06/27/2016 6:17 PM CDT) P athologist Signature Uric Acid 7.2 3.5 - 7.2 [facility] mg/dL [facility] Specimen Anatomical Collection Method Collection Time Receive d Time (Source) Location / / Volume Laterality Blood specimen 06/27/2016 6:17 PM 016 6:18 (specimen) CDT PM CDT Juan José Michelle MD LAB - BLOOD ORDERABLES Performing Organization Address City/State/ZIP Code Phon e Number [facility] [address] [place] [address] documented in this encounter Visit Diagnoses Diagnosis Other secondary acute gout of multiple s ites - Primary Non morbid obesity due to excess calorie s Seborrheic keratosis, inflamed Inflamed seborrheic keratosis Benign essential hypertension Essential hypertension, benign Acute gouty arthropathy documented in this encounter Care Teams Police Cadet Relationship Specialty Start Date End Date Juan José Michelle MD PCP - General Internal Medicine 05/08/15 01/09/21 documented as of this encounter
--- OUTSIDE RECORDS SUMMARY | 2022-07-19 12:17 | XMS_ITS | Encounter Summary ---
:1945 Author Organization [place] Address [address] [facility] [place] [address] Care Team Providers Name Role Phone Juan José Michelle MD Primary Care Provider Reason for Referral Specialty Diagnoses / Procedures Referred By Contact Refer red To Contact [facility] [address] [facility] [place] [address] Referral ID Status Reason Start Date Expiration Date Visits Requ ested Visits Authorized Reason for Visit Reason Comments Sleep Problem Encounter Details Date Type Department Care Team Description 05/25/2015 Documentation Only [facility] Sleep Charity Garza, RT Sleep Problem Centers [address] [place] [address] Social History Tobacco Use Types Packs/Day Years Used Date Smoking Tobacco: Former Cigars Smokeless Tobacco: Never Alcohol Use Standard Drinks/Week Comments No 0 (1 standard drink = 0.6 oz pure not fo r about 35 years (as of 2014) alcohol) Sex Assigned at Date Recorded Not on file documented as of this encounter Progress Notes Charity Garza RT - 05/26/2015 8:18 AM CDT Equipment being ordered: CPAP Patient Ruddy Calhoun was set up at [place] on May 25, 2015. Patient received a [...] Name Type Priority Associated Diagnoses Order S [employer] SLEEP MACHINE INFORMATION Referral Routine Or dered: 05/26/2015 documented as of this encounter Visit Diagnoses Not on filedocumented in this encounter Care Teams Facilities Operations Technician Relationship Specialty Start Date End Date Juan José Michelle MD PCP - General Internal Medicine 05/08/15 01/09/21 documented as of this encounter
--- OUTSIDE RECORDS SUMMARY | 2022-07-19 12:17 | XMS_ITS | Encounter Summary ---
:1945 Author Organization [place] Address [address] [place] [address] Care Team Providers Name Role Phone Juan José Michelle MD Primary Care Provider Reason for Visit Reason Comments Sleep Problem Encounter Details Date Type Department Care Team Description 06/09/2015 Documentation Only [facility] Sleep Center Sleep Problem Virtual Care [address] [place] [address], [address] [place] [phone] Social History Tobacco Use Types Packs/Day [...] AM CDT Patient contacted for 14 day [facility] visit Message left for patient to return [...] on filedocumented in this encounter Care Teams Gas Pump Attendant Relationship Specialty Start Date End Date Juan José Michelle MD PCP - General Internal Medicine 05/08/15 01/09/21 documented as of this encounter
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
--- OUTSIDE RECORDS SUMMARY | 2022-07-19 12:17 | XMS_ITS | Encounter Summary ---
:1945 Author Organization [place] Address [address] [place] [address] Care Team Providers Name Role Phone Juan José Michelle MD Primary Care Provider Juan José Michelle MD Unavailable Juan José Michelle MD Unavailable Reason for Referral Diagnostic Procedure Outpatient - Closed Specialty Diagnoses / Procedures Referred By Contact Refer red To Contact Diagnoses Colon cancer screening Juan José Michelle MD [facility] [address] [place] [address] [address] [address] Phone: Fax: Referral ID Status Reason Start Date Expiration Date Visits Requ ested Visits Authorized [id number] Closed 11/06/2016 11/06/2017 1 1 GY CONSERVATION DIRECTOR Reason for Visit Reason Comments Wellness Visit Throat Pain Musculoskeletal Problem foot Encounter Details Date Type Department Care Team Description 11/05/2016 Office Visit [facility] Juan José Michelle 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); Clinic [place] WISDOM Seborrheic keratosis, inflamed; [address] [facility], [address] [facility] (obstructive sleep apnea); [address] Essential hypertension; [place] [address] [place], [place] Fatigue, unspecified type; [phone] [address] Screening for prostate cancer; [phone] Osteopenia; (Work) Pruritus ani; [phone] Colon cancer sc diana (Fax) Social History [...] Comments Blood Pressure 132/78 11/05/2016 9:18 AM ENERGY CONSERVATION DIRECTOR Pulse 73 11/05/2016 9:18 AM ENERGY CONSERVATION DIRECTOR Temperature 36.6 ??C (97.9 ??F) 11/05/2016 9:18 AM ENERGY CONSERVATION DIRECTOR Respiratory Rate - - Oxygen Saturation 95% 11/05/2016 9:18 AM ENERGY CONSERVATION DIRECTOR Inhaled Oxygen Concentration - - Weight 105.5 kg (232 lb 9.6 oz) 11/05/2016 9:18 AM ENERGY CONSERVATION DIRECTOR Height 170.2 cm (5' 7) 11/05/2016 9:18 AM ENERGY CONSERVATION DIRECTOR Body Mass Index 36.43 11/05/2016 9:18 AM ENERGY CONSERVATION DIRECTOR documented in this encounter Patient Instructions Patient InstructionsMooring, Kiera Ambrocio - 11/05/2016 8:42 AM CST Preventive Health [...] such as glaucoma, macular degeneration and cataracts. GY CONSERVATION DIRECTOR documented in this encounter Progress Notes Juan [...] any further questions. Juan José Michelle MD GY CONSERVATION DIRECTOR Juan José Michelle MD - 11/05/2016 8:42 AM CST SUBJECTIVE: Ruddy Calhoun is a 71 year old male who presents for Preventive Visit. Patient, who has a history of flat feet and gout, notes that feet have been improving. Patient reports during trip to [facility] in late August and early September, he increased frequency of walking. Since returning to the [place], he reports maintaining walking regimen with improvement of local weather. Previou sly he reports walking 5-10 minutes daily. Patient reports beginning a weight loss program but has not seen weight loss over a few pounds and has stabilized. He reports changes in night vision and has not seen pilot plant supervisor in 3 years. Patient also complains of [...] COGNITIVE SCREEN 1) Repeat 3 items (Banana, Economy, Chair) 2) Clock draw: NORMAL 3) 3 item recall: Recalls 3 objects Results: NORMAL clock, 1-2 items recalled: COGNITIVE IMPAIRMENT LESS LIKELY Mini-CogTM Copyright Berto Vargas. Licensed by the author for use in [facility]; reprintedwith permission (brad@.[email or web address]). All rights reserved. All Histories reviewed and updated in [facility] as appropriate. Social History Substance Use Topics ??? Smoking status: Former Smoker Types: Cigars ??? Smokeless tobacco: Never Used ??? Alcohol use No Comment: not for about 35 years (as of 2014) The patient does not drink >3 drinks per day nor >7 drinks per week. Today's PHQ-2 Score: PHQ-2 (??1999 Pfizer) 06/10/2016 Q1: Little interest or pleasure [...] Patient Ruddy Calhoun was set up at [facility] on May 25, 2015. Patient received a Resmed Airsense 10 Auto. Pressures were set at Auto 5 - 15 cm H2O. Patient???s ramp is 0 cm H2O for Off and FLEX/EPR is A Flex 2. Patient received a [employer] Mask name: Simplus Full Face mask Size [...] his/her behalf by Vickie Tejada, a trained medical collector. The creation of this document is based the provider's statements to the medical collector. Scribe Vickie Tejada 12:54 PM, November 05, [...] Lung CA Screening Juan José Michelle MD [facility] The information in this document, created by the medical collector for me, accurately reflects the services I personally performed and the decisions made by me. I have reviewed and approved this document for accuracy prior to leaving the patient care area. Juan José Michelle MD 10:09 AM, 11/05/16 GY CONSERVATION DIRECTOR documented in this encounter Nursing Notes Kiera [...] lb 9.6 oz (105.5 kg). 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 Seborrheic keratosis, infla med DIANNE (obstructive sleep apnea) Essential hypertension Fatigue, unspecified type Screening for prostate cancer VITAMIN D DEFICIENCY Routine 11/05/2016 9:59 AM Idiopathic chr onic Results for this SCREENING ENERGY CONSERVATION DIRECTOR gout of multiple procedure a re in sites without the results tophus section. Osteopenia URIC ACID Routine 11/05/2016 9:59 AM Idiopathic chronic Res ults for this ENERGY CONSERVATION DIRECTOR gout of multiple procedure a re in sites without the results tophus section. TSH WITH FREE T4 Routine 11/05/2016 9:59 AM Idiopathic chronic Results for this REFLEX ENERGY CONSERVATION DIRECTOR gout of multiple procedure a re in sites without the results tophus section. Seborrheic keratosis, infla med DIANNE (obstructive sleep apnea) Essential hypertension Fatigue, unspecified type Screening for prostate cancer PROSTATE SPECIFIC Routine 11/05/2016 9:59 AM Idiopathic chroni c Results for this ANTIGEN SCREEN ENERGY CONSERVATION DIRECTOR gout of multiple procedure are in sites without the results tophus section. Seborrheic keratosis, infla med DIANNE (obstructive sleep apnea) Essential hypertension Fatigue, unspecified type Screening for prostate cancer LIPID REFLEX TO DIRECT Routine 11/05/2016 9:59 AM Idiopathic c hronic Results for this LDL PANEL ENERGY CONSERVATION DIRECTOR gout of multiple procedure a re in sites without the results tophus section. Seborrheic keratosis, infla med DIANNE (obstructive sleep apnea) Essential hypertension Fatigue, unspecified type Screening for prostate cancer COMPREHENSIVE Routine 11/05/2016 9:59 AM Idiopathic chronic Re sults for this METABOLIC PANEL ENERGY CONSERVATION DIRECTOR gout of multiple procedur e are in sites without the results tophus section. Seborrheic keratosis, infla med DIANNE (obstructive sleep apnea) Essential hypertension Fatigue, unspecified type Screening for prostate cancer CBC WITH PLATELETS Routine 11/05/2016 9:59 AM Idiopathic chron ic Results for this ENERGY CONSERVATION DIRECTOR gout of multiple procedure a re in sites without the results tophus section. Seborrheic keratosis, infla med DIANNE (obstructive sleep apnea) Essential hypertension Fatigue, unspecified type Screening for prostate cancer documented in this encounter Results Uric acid (11/05/2016 9:59 AM ENERGY CONSERVATION DIRECTOR) athologist Signature Uric Acid 5.3 3.5 - 7.2 [facility] mg/dL [facility] Specimen Anatomical Collection Method Collection Time Receive d Time (Source) Location / / Volume Laterality Blood specimen 11/05/2016 9:59 AM 017 (specimen) ENERGY CONSERVATION DIRECTOR 10:00 AM ENERGY CONSERVATION DIRECTOR Juan José Michelle MD LAB - BLOOD ORDERABLES Performing Organization Address City/State/ZIP Code Phon e Number [facility] [address] [place] [address] Vitamin D Deficiency (11/05/2016 9:59 AM ENERGY CONSERVATION DIRECTOR) athologist Signature Vitamin D 37 20 - 75 [facility] Deficiency ug/L CT MEDICAL screening [facility] Comment: Season, race, dietary intake, and treatm ent affect the concentration of 40-ykebnef-Mlrlmqg D. Values may decrea se during winter [...] Blood specimen 11/05/2016 9:59 AM 017 (specimen) ENERGY CONSERVATION DIRECTOR 10:00 AM ENERGY CONSERVATION DIRECTOR Juan José Michelle MD LAB - BLOOD ORDERABLES Performing Organization Address City/State/ZIP Code Phon e Number [facility] [address] [place] [address] [facility] TSH with free T4 reflex (11/05/2016 9:59 AM ENERGY CONSERVATION DIRECTOR) athologist Signature TSH 2.54 0.40 - 4.00 [facility] mU/L [facility] Specimen Anatomical Collection Method Collection Time Receive d Time (Source) Location / / Volume Laterality Blood specimen 11/05/2016 9:59 AM 017 (specimen) ENERGY CONSERVATION DIRECTOR 10:00 AM ENERGY CONSERVATION DIRECTOR Juan José Michelle MD LAB - BLOOD ORDERABLES Performing Organization Address City/State/ZIP Code Phon e Number [facility] [address] [place] [address] Prostate spec antigen screen (11/05/2016 9:59 AM ENERGY CONSERVATION DIRECTOR) athologist Signature PSA 0.66 0 - 4 ug/L [facility] Comment: Assay Method: Chemiluminescence using Siemens [place] analyzer Specimen Anatomical Collection Method Collection Time Receive d Time (Source) Location / / Volume Laterality Blood specimen 11/05/2016 9:59 AM 017 (specimen) ENERGY CONSERVATION DIRECTOR 10:00 AM ENERGY CONSERVATION DIRECTOR Juan José Michelle MD LAB - BLOOD ORDERABLES Performing Organization Address City/State/ZIP Code Phon e Number [facility] [address] [place] [address] [phone] [facility] [address] [address], [place] [phone] (ABNORMAL) Lipid panel reflex to direct LDL (11/05/2016 9:59 AM ENERGY CONSERVATION DIRECTOR) [facility] Method Time Signature Cholesterol 179 <200 [place] mg/dL [facility] Triglycerides 96 <150 [place] mg/dL [facility] HDL Cholesterol 57 >39 mg/dL [facility] LDL Cholesterol 103 (H) <100 [place] Calculated mg/dL [facility] Comment: Above desirable: ??100-129 mg/dl Borderline High: ??130-159 mg/dL High: ? 160-189 mg/dL Very high: ? >189 mg/dl Non HDL Cholesterol 122 <130 mg/dL [facility] Specimen Anatomical Collection Method Collection Time Receive d Time (Source) Location / / Volume Laterality Blood specimen 11/05/2016 9:59 AM 017 (specimen) ENERGY CONSERVATION DIRECTOR 10:00 AM ENERGY CONSERVATION DIRECTOR Juan José Michelle MD LAB - BLOOD ORDERABLES Performing Organization Address City/State/ZIP Code Phon e Number [facility] [address] [place] [address] (ABNORMAL) Comprehensive metabolic panel (11/05/2016 9:59 AM ENERGY CONSERVATION DIRECTOR) [facility] Method Time Signature Sodium 141 133 - 144 [place] mmol/L [facility] Potassium 3.8 3.4 - 5.3 [place] mmol/L [facility] Chloride 100 94 - 109 [place] mmol/L [facility] Carbon Dioxide 32 20 - 32 [place] mmol/L [facility] Anion Gap 9 3 - 14 [place] mmol/L [facility] Glucose 104 (H) 70 - 99 [place] mg/dL [facility] Urea Nitrogen 15 7 - 30 [place] mg/dL [facility] Creatinine 1.09 0.66 - [place] 1.25 mg/dL [facility] GFR Estimate 67 >60 [place] mL/min/1.7 CLINICS m2 [facility] Comment: Non GFR Calc GFR Estimate If Black 81 >60 mL/min/1.7m2 [facility] Comment: GFR Calc Calcium 9.6 8.5 - 10.1 mg/dL [place] CLIN ICS [facility] Bilirubin Total 0.6 0.2 - 1.3 mg/dL [facility] Albumin 3.7 3.4 - 5.0 g/dL [facility] S [facility] Protein Total 7.5 6.8 - 8.8 g/dL [place] CL INICS [facility] Alkaline Phosphatase 69 40 - 150 U/L [facility] EW [facility] ALT 36 0 - 70 U/L [facility] AST 19 0 - 45 U/L [facility] Specimen Anatomical Collection Method Collection Time Receive d Time (Source) Location / / Volume Laterality Blood specimen 11/05/2016 9:59 AM 017 (specimen) ENERGY CONSERVATION DIRECTOR 10:00 AM ENERGY CONSERVATION DIRECTOR Juan José Michelle MD LAB - BLOOD ORDERABLES Performing Organization Address City/State/ZIP Code Phon e Number [facility] [address] [place] [address] CBC with platelets (11/05/2016 9:59 AM ENERGY CONSERVATION DIRECTOR) P athologist Signature WBC 9.0 4.0 - 11.0 [place] 10e9/L [facility] RBC Count 4.84 4.4 - 5.9 [place] 10e12/L [facility] Hemoglobin 14.0 13.3 - [place] 17.7 g/dL [facility] Hematocrit 43.4 40.0 - [place] 53.0 % [facility] MCV 90 78 - 100 [place] fl [facility] MCH 28.9 26.5 - [place] 33.0 pg [facility] MCHC 32.3 31.5 - [place] 36.5 g/dL [facility] RDW 14.9 10.0 - [facility] 15.0 % [facility] Platelet Count 221 150 - 450 [place] 10e9/L [facility] Specimen Anatomical Collection Method Collection Time Receive d Time (Source) Location / / Volume Laterality Blood specimen 11/05/2016 9:59 AM 017 (specimen) ENERGY CONSERVATION DIRECTOR 10:00 AM ENERGY CONSERVATION DIRECTOR Juan José Michelle MD LAB - BLOOD ORDERABLES Performing Organization Address City/State/ZIP Code Phon e Number [facility] [address] [place] [address] (ABNORMAL) UA reflex to Microscopic and Culture (11/05/2016 9:59 AM ENERGY CONSERVATION DIRECTOR) [facility] Method Time Signature Color Urine Yellow [facility] [place] Appearance Urine Clear [facility] [place] Glucose Urine Negative NEG mg/dL [facility] [place] Bilirubin Urine Negative NEG [facility] [place] Ketones Urine Negative NEG mg/dL [facility] [place] Specific [place] 1.020 1.003 - [place] Urine 1.035 CL[facility]ICS [place] Blood Urine Negative [facility]G [facility] pH Urine 7.5 (H) 5.0 - 7.0 [place] pH [facility] [place] Protein Albumin Negative NEG mg/dL [place] Urine [facility] Urobilinogen 0.2 0.2 - 1.0 [place] Urine EU/dL [facility] [place] Nitrite Urine Negative NEG [facility] [place] Leukocyte Negative NEG [place] Esterase Urine [facility] [place] Source Midstream [place] Urine [facility] Specimen Anatomical Collection Method Collection Time Receive d Time (Source) Location / / Volume Laterality Urine specimen 11/05/2016 9:59 AM 017 (specimen) ENERGY CONSERVATION DIRECTOR 10:00 AM ENERGY CONSERVATION DIRECTOR Juan José Michelle MD LAB - URINE ORDERABLES Performing Organization Address City/State/ZIP Code Phon e Number [facility] [address] [place] [address] documented in this encounter Visit Diagnoses Diagnosis 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 - Primary 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
--- OUTSIDE RECORDS SUMMARY | 2022-07-19 12:17 | XMS_ITS | Encounter Summary ---
:1945 Author Organization [place] Address [address] [facility] [place] [address] Care Team Providers Name Role Phone Juan [...] Type Department Care Team Description 09/29/2016 Refill [facility] Juan José Michelle MD Medication Refill [place] [address] [facility] [address] [facility] [place] [address] [place] [address] [phone] Social History Tobacco Use Types Packs/Day Years [...] reported/historical Please review refills. Jacqueline No RN R HELPER Telephone Encounter - Lianet Beck CMA - 10/01/2016 11:15 AM MIXER HELPER Triamterene, Lisinopril Last Written Prescription Date: unk Last Fill Quantity: unk, # refills: unk Last Office Visit with [facility] or [facility] prescribing provider: 06/27/16 Next 5 appointments (look out 90 days) Nov 05, 2016 9:30 AM PHYSICAL with Juan José Michelle MD [facility] [address] [place] [phone] POTASSIUM Date Value Ref Range Status 06/27/2016 3.7 3.4 - 5.3 mmol/L Final CREATININE Date Value Ref Range Status 06/27/2016 1.17 0.66 - 1.25 mg/dL Final BP Readings from Last 3 Encounters: 06/27/16 149/88 06/10/16 116/77 09/29/15 133/79 Lianet Beck MA R HELPER documented in this encounter Plan of Treatment Not on filedocumented as of this encounter Visit Diagnoses Diagnosis HTN (hypertension) - Primary Unspecified essential hypertension Benign essential hypertension Essential hypertension, benign documented in this encounter Care Teams Online Community Manager Relationship Specialty Start Date End Date Juan José Michelle MD PCP - General Internal Medicine 8/24/15 4/27/21 Juan José Michelle MD PCP - Assigned PCP 07/26/16 11/17/[address] [place] [address] Thomas Singleton MD PCP - General Internal Medicine 01/10/21 07/08/[address] [place] [phone] Thomas Giron MD PCP - General Internal Medicine 07/09/[address] [place] [address] Juan José Michelle MD Assigned PCP 07/26/16 12/30/[address] [place] [address] Adonis Grullon, Assigned Neuroscience 11/29/20 PA-C Provider [address] [place], [place] [phone] Adonis Grullon, Assigned Sleep Provider 11/29/20 02/24/21 PA-C [address] [place], [place] [phone] Thomas Singleton MD Assigned PCP 12/31/20 02/07/[address] [place] [phone] Ruddy Giron, Assigned Musculoskeletal 01/28/21 DPM Provider [address] [facility] [address] [place], [place] [address] Juan José Michelle MD Assigned PCP 02/08/21 02/24/21 [address] [place] [phone] Thomas Singleton MD Assigned PCP 02/25/21 06/23/[address] [place] [address], [place] [phone] Thomas Giron MD Assigned PCP 06/24/21 [address] [place] [address] documented as of this encounter
--- OUTSIDE RECORDS SUMMARY | 2022-07-19 12:17 | XMS_ITS | Encounter Summary ---
:1945 Author Organization [place] Address [address] [facility] [place] [address] Care Team Providers Name Role Phone Juan José Michelle MD Primary Care Provider Reason for Visit Reason Onset Date Comments Results 05/17/2015 home sleep study res ults Encounter Details Date Type Department Care Team Description 05/17/2015 Telephone [facility] Adonis Grullon Results (home sleep Sleep Centers Angy Herbert PA-C study results) [address] [facility] [address] [place] [address] [place] [address] [phone] Social History Tobacco Use Types Packs/Day Years [...] elsewhere documented in this encounter Care Teams Boiler Riveter Relationship Specialty Start Date End Date Juan José Michelle MD PCP - General Internal Medicine 05/08/15 01/09/21 documented as of this encounter
--- OUTSIDE RECORDS SUMMARY | 2022-07-19 12:17 | XMS_ITS | Encounter Summary ---
:1945 Author Organization [place] Address [address] [facility] [place] [address] Care Team Providers Name Role Phone Juan José Michelle MD Primary Care Provider Reason for Visit Reason Comments Sleep Problem Encounter Details Date Type Department Care Team Description 06/27/2015 Documentation Only [facility] Sleep Problem Virtual Care [address] [place] [address], [address] [place] [phone] Social History Tobacco Use Types Packs/Day [...] - 06/27/2015 2:14 PM CDT 30 DAY [facility] VISIT Patient contacted for 30 day STM [...] on filedocumented in this encounter Care Teams Android Programmer Relationship Specialty Start Date End Date Juan José Michelle MD PCP - General Internal Medicine 05/08/15 01/09/21 documented as of this encounter
--- OUTSIDE RECORDS SUMMARY | 2022-07-19 12:17 | XMS_ITS | Encounter Summary ---
:1945 Author Organization [place] Address [address] [place] [address] Care Team Providers Name Role Phone Juan José Michelle MD Primary Care Provider Reason for Visit Reason Comments Sleep Problem Encounter Details Date Type Department Care Team Description 07/04/2015 Care Coordination [facility] Sleep Prete Gr[facility]on Sleep Problem Centers Angy Herbert PA-C [address] [facility] [address] [place] [address] [address] [place] [address] [place] [address] [phone] Social History Tobacco Use Types Packs/Day Years [...] on current pap settings to Kayla @ [facility] documented in this encounter Plan of Treatment Not on filedocumented as of this encounter Visit Diagnoses Not on filedocumented in this encounter Care Teams Gas And Oil Servicer Relationship Specialty Start Date End Date Juan José Michelle MD PCP - General Internal Medicine 05/08/15 01/09/21 documented as of this encounter
--- OUTSIDE RECORDS SUMMARY | 2022-07-19 12:17 | XMS_ITS | Encounter Summary ---
:1945 Author Organization [place] Address [address] [place] [address] Care Team Providers Name Role Phone Juan José Michelle MD Primary Care Provider Reason for Visit Reason Comments Sleep Problem [facility] entry Encounter Details Date Type Department Care Team Description 05/25/2015 Documentation Only [facility] Slee p Problem ([facility] Sleep Center Virtual entry) Care [address] [place] [address], [address] [place] [address] Social History Tobacco Use Types [...] was set up with PAP equipment by [facility] and is enrolled in [facility]. See previous documentation by [facility] for equipment and supply details. documented in this encounter Plan of Treatment Not on filedocumented as of this encounter Visit Diagnoses Not on filedocumented in this encounter Care Teams Building Wrecker Relationship Specialty Start Date End Date Juan José Michelle MD PCP - General Internal Medicine 05/08/15 01/09/21 documented as of this encounter
--- OUTSIDE RECORDS SUMMARY | 2022-07-19 12:17 | XMS_ITS | Encounter Summary ---
:1945 Author Organization [place] Address [address] [facility] [place] [address] Care Team Providers Name Role Phone Juan José Michelle MD Primary Care Provider Juan José Michelle MD Unavailable Juan José Michelle MD Unavailable Encounter Details Date Type Department Care Team Description 10/01/[address] [facility] Adonis Grullon DIANNE (obs tructive sleep Sleep Centers [place] Herbert PA-C apnea) (Primary Dx) [address] [facility] [address] [place] [address] [place] [address] Social History Tobacco Use Types Packs/Day [...] New CPAP supplies ordered. Adonis Grullon PA-C RLINE CLERK documented in this encounter Plan of Treatment Not on filedocumented as of this encounter Visit Diagnoses Diagnosis DIANNE (obstructive sleep apnea) - Primary Obstructive sleep apnea (adult) (pediatr ic) documented in this encounter Care Teams Headhunter Relationship Specialty Start Date End Date Juan José Michelle MD PCP - General Internal Medicine 05/08/15 01/09/21 Juan José Michelle MD PCP - Assigned PCP 07/26/16 11/17/18 [address] [place] [address] Juan José Michelle MD Assigned PCP 07/26/16 12/30/20 [address] [place] [address] documented as of this encounter
--- OUTSIDE RECORDS SUMMARY | 2022-07-19 12:21 | XMS_ITS | Encounter Summary ---
:1945 Author Organization [facility] Address [address] [place] [address] Care Team Providers Name Role Phone Juan José Michelle MD Primary Care Provider Unavailable Reason for Visit Reason Onset Date Comments Travel Consult 10/01/2016 Encounter Details Date Type Department Care Team Description 10/01/2016 Initial Consult [place] [facility] Odalis Willis unseling for travel (Primary Dx); Clinic C, MJ, SARA Need for influenza vaccination [address] [address] [facility] [phone] [place], [place] [id number] Social History Tobacco Use Types Packs/Day Years Used Date Smoking Tobacco: Never Alcohol Use Standard Drinks/Week Comments Not Asked 0 (1 standard drink = 0.6 oz pure alcoho l) Sex Assigned at Date Recorded Not on file documented as of this encounter Progress Notes Odalis Willis APRN, SARA - 10/01/2016 10:21 AM CST Subjective: Ruddy Calhoun is a 70 y.o. male who presents to the clinic for travel consultation accompanied by spouse,. TRAVEL PLANS Planned departure date: October 06, 2016 Time in developing countries: 9 days. Countries of travel: [facility] Areas in country: rural and urban Traveling to Malarial area: yes Time in malarial area: 9 days. Reviewed Malarial risk map: yes Prior malarial chemoprophylaxis use: Yes, tolerated malarone and lariam in the past Traveling to [facility] area: no Accommodations: guest house Purpose of travel: [...] 06/16/2000, 03/27/2012 Electronically signed by Odalis Willis, TEXTILE MACHINE OPERATOR, COMBATANT DIVER QUALIFIED at 10/01/2016 10:50 AM PRIVACY DIRECTOR documented in this encounter Plan of Treatment Not on filedocumented as of this encounter Visit Diagnoses Diagnosis Counseling for travel - Primary Other specified counseling Need for influenza vaccination Need for prophylactic vaccination and in oculation against influenza documented in this encounter Care Teams Sap Bpc Architect Relationship Specialty Start Date End Date Juan José Michelle MD PCP - General Internal Medicine 07/15/12 documented as of this encounter
--- OUTSIDE RECORDS SUMMARY | 2022-07-19 12:21 | XMS_ITS | Encounter Summary ---
:1945 Author Organization [facility] Address [address] [place] [address] Care Team Providers Name Role Phone Juan José Michelle MD Primary Care Provider Unavailable Reason for Visit Reason Comments Travel Call Encounter Details Date Type Department Care Team Description 09/20/2015 Telephone [facility] [address] Thomas Martin MD Travel Call Clinic [address] [place] [address] [place] [address] [phone] Social History Tobacco Use Types Packs/Day Years Used Date Smoking Tobacco: Never Alcohol Use Standard Drinks/Week Comments Not Asked 0 (1 standard drink = 0.6 oz pure alcoho l) Sex Assigned at Date Recorded Not on file documented as of this encounter Nursing Notes Kesha Silvestre, RASHMI - 09/22/2015 3:57 PM CST Spoke with wifr. They [place] at [facility] risk [facility] [place] [facility]. Have used [...] Denies kidney function issues.Malarone rx sent to [facility] for #31 tabs per spouse request. OR SALES REPRESENTATIVE Kesha Silvestre RN - 09/21/2015 10:59 AM CST left message to call here to verify current medical status before refilling rxs as requested OR SALES REPRESENTATIVE Brooklyn Lee RN - 09/21/2015 9:49 AM CST Pts calling and states that she will be traveling back to [facility] with her on 10/02-10/26. Same trip as before. Requesting Rxs for both of them for malaria med/ traveler's diarrhea med. Seen 02/2015. Pharm listed. Pt P) [phone]. OR SALES REPRESENTATIVE documented in this encounter Plan of Treatment Not on filedocumented as of this encounter Visit Diagnoses Not on filedocumented in this encounter Care Teams National Insurance Officer Relationship Specialty Start Date End Date Juan José Michelle MD PCP - General Internal Medicine 07/15/12 documented as of this encounter
--- OUTSIDE RECORDS SUMMARY | 2022-07-19 12:21 | XMS_ITS | Encounter Summary ---
:1945 Author Organization [facility] Address [address] [place] [address] Care Team Providers Name Role Phone Juan José Michelle MD Primary Care Provider Unavailable Encounter Details Date Type Department Care Team Description 12/16/2013 Office Visit [facility] Primary open-angle [address] glaucoma (Primary Dx) [place] [address] Social History Tobacco Use Types Packs/Day Years [...] Primary documented in this encounter Care Teams City Marshal Relationship Specialty Start Date End Date Juan José Michelle MD PCP - General Internal Medicine 07/15/12 documented as of this encounter
--- OUTSIDE RECORDS SUMMARY | 2022-07-19 12:21 | XMS_ITS | Encounter Summary ---
:1945 Author Organization [facility] Address [address] [place] [address] Care Team Providers Name Role Phone Juan José Michelle MD Primary Care Provider Unavailable Reason for Visit Reason Comments Travel Consult Encounter Details Date Type Department Care Team Description 02/13/2015 Initial Consult [facility] [address] Sil[address] A dvice or Infectious Disease ORE PUNCHER, OIL RIG DRILLER immunization for [address] [facility] [address] travel (Primary Dx) [address] [place] [phone] Social History Tobacco Use Types Packs/Day Years [...] [place] Areas in country: rural and urban ([facility], [facility], [place] and other areas) Traveling to [...] Transmitted Diseases, Travax/CDC information, Traveler's Diarrhea, Typhoid, Fajardo ow Fever, Chikungunya. Reviewed vaccine schedule and [...] counseling documented in this encounter Care Teams Reference Investigator Relationship Specialty Start Date End Date Juan José Michelle MD PCP - General Internal Medicine 07/15/12 documented as of this encounter
--- OUTSIDE RECORDS SUMMARY | 2022-07-19 12:21 | XMS_ITS | Clinical Summary ---
:1945 Author Organization [facility] Address [address] [place] [address] Care Team Providers Name Role Phone Juan José Michelle MD Primary Care Provider Unavailable Source Comments You are receiving this document [...] for each transition of care or referral. [facility] Allergies No known active allergies Medications Medication [...] eye HTN (hypertension) 03/27/2012 Obesity 12/24/2006 Overview: [facility] Essential hypertension 05/06/2005 Overview: [facility] Primary open angle glaucoma 05/06/2005 Immunizations Name Administration Dates Next Due Flu Vac (3+ yrs) 09/02/2006, 08/28/2005, 09/13/2004 Flu Vac Preserv Free (3+yrs) 07/16/2006 HepA Adult (19+ yrs) 04/09/2005, 05/14/2000 HepB Adult (Engerix-B, 20+ yrs, 3 dose 06/16/2000, 0 series) HepB, Unspecified Formulation 03/30/2001 IPV (Polio) 05/14/2000 Influenza IIV3 (Trivalent) Fluzone 10/01/2016 Highdose, 65+ Yrs (10926) MPSV4 (Menomune) 03/27/2012, 04/09/2005, 06/16/2000 PCV13 (Prevnar) [...] Dates MISC INS WORK MISC INS WORK [id number] 2012-Pr [phone] [address] Workers Comp COMP WC COMP WC esent 000 [address] [place] [address] MEDICA MEDICA PRIME [id number] 2011-Pres [phone] Med icare SOLUTION ent [phone] MEDICARE MEDICARE [id number] 2015-Pres [phone] Medic are MANAGED CARE ent [phone] (Work) [place] [address] Ruddy Calhoun Personal/Family Self 1945 [address] [place] [address] Ruddy Calhoun Personal/Family Self 1945 [address] [place] [address] Ruddy Calhoun Workers Comp Self 1945 [phone] (Work) [place] [address] Care Teams Presiding Judge Relationship Specialty Start Date End Date Juan José Michelle MD PCP - General Internal Medicine 07/15/12
--- OUTSIDE RECORDS SUMMARY | 2022-07-19 12:22 | XMS_ITS | Encounter Summary ---
:1945 Author Organization [facility] Address [address] [place] [address] Care Team Providers Name Role Phone Juan José Michelle MD Primary Care Provider Unavailable Reason for Visit Reason Comments Other mulitple facial fractures Consult/Transfer Care (Routine) - Closed Specialty Diagnoses / Procedures Referred By Contact Refer red To Contact Emergency Departm ent [address] [place] [address] Referral ID Status Reason Start Date Expiration Date Visits Requ ested Visits Authorized [id number] Closed 07/15/2012 1 1 Encounter Details Date Type Department Care Team Description 07/23/2012 Office Visit [facility] Bar Alfaro trauma (Primary Dx); 401 Otolaryngology MD Last Multiple facial bone fractures; [address] [place] [address] [place], [place] [phone] Social History Tobacco Use Types Packs/Day Years [...] substitutions. Bar Alfaro MD 07/23/2012, 5:20 PM MASON APPRENTICE documented in this encounter Plan of Treatment [...] neck documented in this encounter Care Teams Canary Raiser Relationship Specialty Start Date End Date Juan José Michelle MD PCP - General Internal Medicine 07/15/12 documented as of this encounter
--- OUTSIDE RECORDS SUMMARY | 2022-07-19 12:22 | XMS_ITS | Encounter Summary ---
:1945 Author Organization [facility] Address [address] [place] [address] Care Team Providers Name Role Phone Unassigned, Provider Primary Care Provider Unavailable Reason for Visit Reason Comments LEG PAIN--ED sent from [facility] f or U/S of RLE, R/O DVT Encounter Details Date Type Department Care Team Description 12/04/2006 - Emergency [facility] Emergency Dept Fritz Suárez MD Leg Pain 12/05/2006 [address] [facility]. [address] [place] [address] [place] [address] [phone] (Wo rk) Social History Tobacco Use Types [...] Dear Mr. Calhoun, Thank you for choosing [facility] for your emergency medical needs. You have [...] access hospital clinic, please call the [facility] Appointment Desk at [phone] anytime between 7:00 AM and 9:00 PM, [...] comes in by car ambulatory from the [facility] The patient states that he was at the urgent care there today because he got back from a trip from [place], [place] yesterday after driving a long way [...] been on a long car ride from [place], there and back in the last 4 [...] sure. The patient was sent from the [facility] over here for an ultrasound to rule [...] 12/05/2006 01:07:20 Transcribed: 12/07/2006 12:33:32 Doc #: [id number] cc:Fritz Suárez MD, Attending Physician DR. LUQUE, Primary Physician This document was electronically signed by Ochoa Patton MD on 02/13/2007 10:55:33. 2 Page 2 Patient Name: RUDDY CALHOUN Visit Date: 12/04/2006 21:22:00 EMERGENCY MEDICINE NOTE CONFIDENTIAL MEDICAL RECORD [address] [address] Page 1 Patient: RUDDY CALHOUN [id number] Date of : 1945 Age: 61Y Visit Date: 12/04/2006 21:22:00 EMERGENCY MEDICINE NOTE Franky Marie - 12/05/2006 12:57 AM CDT Exam done testing wnl home with family referral and instructions given Franky Marie - 12/05/2006 12:52 AM CDT Back from ultrasound waiting disposition Fritz Suárez - 12/04/2006 11:47 PM CDT [facility] Emergency Department Attending Supervision Note Patient Name: Ruddy Calhoun Date of : 1945 I performed the amado elements of history and exam, and agree with resident's findings and plan of care as discussed with Dr. Ochoa Patton. PMH, FH, SOC, ROS reviewed Please see today's note by resident physician. Assessment: Left calf pain with some associated ankle swelling Recent long travel to/from [place] Sent from urgent care to [facility] for DVT -- US neg for DVT Plan: Imaging: Rad Ultrasound: lower extremity lee doppler Analgesics Backfiller patient/family Planned Disposition: home This electronic signature covers the nursing and ancillary testing orders for this visit. Ochoa Hernandez - 12/04/2006 11:29 PM CDT [facility] Emergency Department Visit Note Patient Name: Ruddy [...] on file. Review of Systems: Please see Zazengo flowsheet for review of systems. Condition on [...] cramping last noc after returning.Pt seen at [facility] and referred here for U/S of LE. [...] limb documented in this encounter Care Teams Nut Steamer Relationship Specialty Start Date End Date Unassigned, Provider PCP - General 10/25/00 07/14/[address] [place] [address] documented as of this encounter
--- OUTSIDE RECORDS SUMMARY | 2022-07-19 12:22 | XMS_ITS | Clinical Summary ---
:1945 Author Organization [facility] [facility] [place] [address] Care Team Providers Name Role Phone Juan [...] on file Medical Devices Implanted Type Area Beehive Kiln Charcoal Burner Device Shelf Model / Identifier Expiration Serial / Date Lot Stent Trabecular Lf Micro Bypass Istent - [id number] ght: Edi 11/13/2019 [id number] / Implanted: Qty: 1 on 05/20/2017 by Asim Iraheta MD at [facility] [id number] / Results Not on filefrom Last 3 Months Insurance Payer Benefit Plan / Subscriber ID Effective Dates Phone Addre ss Type Group MEDICARE PART B MEDICARE PART B [id number] 2011-Present ATTN: CLAIMS - HB USE ONLY HB ONLY [address] [facility] [place] [address] MEDICA MEDICA PRIME [id number] 2016-Present [address] [address] [place] [address] [address] (Home) [address] [place] [address] Advance Directives Latest Code Status on File Code Status Date Activated Date Inactivated Comments Full Code 05/20/2017 7:50 AM 05/21/2017 2:29 AM Care Teams Dust Collector Attendant Relationship Specialty Start Date End Date Juan José Michelle PCP - General Surgery - General 05/16/17
--- OUTSIDE RECORDS SUMMARY | 2022-07-19 12:22 | XMS_ITS | Encounter Summary ---
:1945 Author Organization [facility] Address [address] [place] [address] Care Team Providers Name Role Phone Juan José Michelle MD Primary Care Provider Unavailable Reason for Visit Consult/Transfer Care (Routine) - Closed Specialty Diagnoses / Procedures Referred By Contact Refer red To Contact Emergency Departm ent [address] [place] [address] Referral ID Status Reason Start Date Expiration Date Visits Requ ested Visits Authorized [id number] Closed 07/15/2012 1 1 Encounter Details Date Type Department Care Team Description 07/17/2012 Office Visit [facility] Rashel Brenner, Orbital Fracture left eye (P rimary Dx); [address] Primary open-angle glaucoma; [place] [address] Periorbital ecchymosis [phone] [place] [address] (Wo rk) Social History Tobacco [...] for consultation requested by Dr Lupillo Mckeon [facility] ED 07/15/12. Consult for patient fell off [...] Name Type Priority Associated Diagnoses Order S [facility] Ophthalmology referral Referral Routine Order ed: 07/15/2012 from ED - WEEKDAY documented as of this encounter Visit Diagnoses Diagnosis Orbital Fracture left eye - Primary Other facial bones, closed fracture Primary open-angle glaucoma(365.11) Primary open-angle glaucoma Periorbital ecchymosis Contusion of eyelids and periocular area documented in this encounter Care Teams Project Control Officer Relationship Specialty Start Date End Date Juan José Michelle MD PCP - General Internal Medicine 07/15/12 documented as of this encounter
--- OUTSIDE RECORDS SUMMARY | 2022-07-19 12:22 | XMS_ITS | Encounter Summary ---
:1945 Author Organization [facility] Address [address] [place] [address] Care Team Providers Name Role Phone Unassigned, Provider Primary Care Provider Unavailable Encounter Details Date Type Department Care Team Description 04/09/2005 Office Visit [facility] [address] Travel Marcos Araujo Jr., Clinic [address] [place] [address] [place] [phone] Social History Tobacco Use Types Packs/Day [...] 0000 Note Time: 04/09/05 0001 Status: Signed Climate Change Analyst: Abbi Shaver RN (Registered Nurse) Travel Clinic Initial Visit Patient is seen in Travel Clinic individually for travel education and counseling. TRAVEL PLANS Patient states they are planning to travel to: [facility], [place] and rural. Plans include travel [...] on filedocumented in this encounter Care Teams Appliance Repair Technician Relationship Specialty Start Date End Date Unassigned, Provider PCP - General 10/25/00 07/14/[address] [place] [address] documented as of this encounter
--- OUTSIDE RECORDS SUMMARY | 2022-07-19 12:22 | XMS_ITS | Encounter Summary ---
:1945 Author Organization [facility] Address [address] [place] [address] Care Team Providers Name Role Phone Juan José Michelle MD Primary Care Provider Unavailable Encounter Details Date Type Department Care Team Description 01/28/2013 Office Visit Juan R Ophthalmology Rashel Brenner, Primary open-angle glaucoma (Primary Dx); [address] [place] [address] [phone] [place], [place] [phone] (Wo rk) Social History Tobacco Use Types [...] glaucoma documented in this encounter Care Teams Branch Sales Manager Relationship Specialty Start Date End Date Juan José Michelle MD PCP - General Internal Medicine 07/15/12 documented as of this encounter
--- OUTSIDE RECORDS SUMMARY | 2022-07-19 12:22 | XMS_ITS | Encounter Summary ---
:1945 Author Organization [facility] Address [address] [place] [address] Care Team Providers Name Role Phone Juan José Michelle MD Primary Care Provider Unavailable Reason for Visit Procedure/Equipment (Routine) - Closed Specialty Diagnoses / Procedures Referred By Contact Refer red To Contact Procedures Emergency Department XR KNEE AP/MO/LAT LEFT [address] [facility] ([place]AU[place]) [place] [address] Referral ID Status Reason Start Date Expiration Date Visits Requ ested Visits Authorized [id number] Closed 07/15/2012 1 1 Encounter Details Date Type Department Care Team Description 07/15/2012 [facility] [address] [place], [place] [address] Social History Tobacco Use Types Packs/Day Years [...] of the patella. Otherwise unremar kable. Lupillo MENDOZA GD XR KNEE AP/MO/LAT LEFT (TRAUMA) (07/15/2012 [...] joint effusion. Lupillo Mckeon MD RAD GD documented in this encounter Visit Diagnoses Not on filedocumented in this encounter Care Teams Shellfish Processing Machine Tender Relationship Specialty Start Date End Date Juan José Michelle MD PCP - General Internal Medicine 07/15/12 documented as of this encounter
--- OUTSIDE RECORDS SUMMARY | 2022-07-19 12:22 | XMS_ITS | Encounter Summary ---
:1945 Author Organization [facility] Address [address] [place] [address] Care Team Providers Name Role Phone Unassigned, Provider Primary Care Provider Unavailable Reason for Visit Reason Onset Date Comments SWELLING, TONGUE 04/21/2004 Encounter Details Date Type Department Care Team Description 04/21/2004 Telephone Careline Evie Aldridge RN SWELLING, TONGUE [address] [place], [place] [address] Social History Tobacco Use Types [...] on filedocumented in this encounter Care Teams Communications Engineering Technician Relationship Specialty Start Date End Date Unassigned, Provider PCP - General 10/25/00 07/14/[address] [place] [address] documented as of this encounter
--- OUTSIDE RECORDS SUMMARY | 2022-07-19 12:22 | XMS_ITS | Encounter Summary ---
:1945 Author Organization [facility] Address [address] [place] [address] Care Team Providers Name Role Phone Unassigned, [...] on filedocumented in this encounter Care Teams Nursing Home Manager Relationship Specialty Start Date End Date Unassigned, Provider PCP - General 10/25/00 07/14/[address] [place] [address] documented as of this encounter
--- OUTSIDE RECORDS SUMMARY | 2022-07-19 12:22 | XMS_ITS | Encounter Summary ---
:1945 Author Organization [facility] Address [address] [place] [address] Care Team Providers Name Role Phone Unassigned, Provider Primary Care Provider Unavailable Reason for Visit Reason Comments SWELLING, LEG L calf Encounter Details Date Type Department Care Team Description 12/04/2006 Office Visit [facility] Edema Leg (Primary Dx); [address] Elevated Blood Pressure [place], [place] [address] Social History Tobacco Use Types [...] a [address] out to [place], [place] and back,with a lot of prolonged [...] to the right, with slight pitting edema usp up the shins bilaterally. The right calf [...] Dr. Scott, emergency room physician at [facility], and the patient will be transported directly over to the emergency room this evening by the patient'swife, for further evaluation including Doppler evaluation of the lower extremity. Subsequent care per the emergency room staff. Thomas Jaime M.D. documented in this encounter Nursing Notes 12/04/2006 8:30 PM CDT >> XOCHITL RICHARDSON LPN [facility] Dec 04, 2006 8:32 PM XOCHITL RICHARDSON LPN 8:30 PM documented in this encounter Plan of Treatment Not on filedocumented as of this encounter Visit Diagnoses Diagnosis Edema leg - Primary Edema Elevated blood pressure Elevated blood pressure reading without diagnosis of hypertension documented in this encounter Care Teams Trimmer And Borer Machine Operator Relationship Specialty Start Date End Date Unassigned, Provider PCP - General 10/25/00 07/14/[address] [place] [address] documented as of this encounter
--- OUTSIDE RECORDS SUMMARY | 2022-07-19 12:22 | XMS_ITS | Encounter Summary ---
:1945 Author Organization [facility] Address [address] [place] [address] Care Team Providers Name Role Phone Unassigned, Provider Primary Care Provider Unavailable Reason for Visit Reason Onset Date Comments LEG PAIN 12/04/2006 Encounter Details Date Type Department Care Team Description 12/04/2006 Telephone Careline Edwardo Watson LEG PAIN [address] [place], [place] [address] Social History Tobacco Use Types Packs/Day Years Used Date Smoking Tobacco: Never Alcohol Use Standard Drinks/Week Comments Not Asked 0 (1 standard drink = 0.6 oz pure alcoho l) Sex Assigned at Date Recorded Not on file documented as of this encounter Nursing Notes Edwardo Watson - 12/04/2006 7:38 PM CDT Trip to [facility] in the car. Left calf cramp. [...] PLAN: What clinic have you established care with?[facility] eval Edwardo Watson RN documented in this encounter Plan of Treatment Not on filedocumented as of this encounter Visit Diagnoses Not on filedocumented in this encounter Care Teams Chemistry Lecturer Relationship Specialty Start Date End Date Unassigned, Provider PCP - General 10/25/00 07/14/[address] [place] [address] documented as of this encounter
--- OUTSIDE RECORDS SUMMARY | 2022-07-19 12:22 | XMS_ITS | Encounter Summary ---
:1945 Author [facility] Address [address] [place] [address] Care Team Providers Name Role Phone Juan José Michelle MD Primary Care Provider Unavailable Reason for Visit Procedure/Equipment (Routine) - Closed Specialty Diagnoses / Procedures Referred By Contact Refer red To Contact Procedures Emergency Department XR WRIST AP/OBL/LAT 3 VIEWS [address] [place] [address] Referral ID Status Reason Start Date Expiration Date Visits Requ ested Visits Authorized [id number] Closed 07/15/2012 1 1 Encounter Details Date Type Department Care Team Description 07/15/2012 [facility] [address] [place] [address] Social History Tobacco Use Types Packs/Day Years [...] on filedocumented in this encounter Care Teams Occupational Therapy Program Director Relationship Specialty Start Date End Date Juan José Michelle MD PCP - General Internal Medicine 07/15/12 documented as of this encounter
--- OUTSIDE RECORDS SUMMARY | 2022-07-19 12:22 | XMS_ITS | Encounter Summary ---
:1945 Author Organization [facility] Address [address] [place] [address] Care Team Providers Name Role Phone Juan José Michelle MD Primary Care Provider Unavailable Encounter Details Date Type Department Care Team Description 06/03/2013 Office Visit [facility] Rashel Arora, Primary open-angle glaucoma( 365.11) (Primary Dx); [address] [address] [phone] [place], [place] [id number] (Wo rk) Social History Tobacco Use Types [...] glaucoma documented in this encounter Care Teams Joint Cutter Machine Relationship Specialty Start Date End Date Juan José Michelle MD PCP - General Internal Medicine 07/15/12 documented as of this encounter
--- OUTSIDE RECORDS SUMMARY | 2022-07-19 12:22 | XMS_ITS | Encounter Summary ---
:1945 Author Organization [facility] Address [address] [place] [address] Care Team Providers Name Role Phone Juan José Michelle MD Primary Care Provider Unavailable Reason for Referral Consult/Transfer Care (Routine) - Closed Specialty Diagnoses / Procedures Referred By Contact Refer red To Contact Emergency Departm ent [address] [place] [address] Referral ID Status Reason Start Date Expiration Date Visits Requ ested Visits Authorized [id number] Closed 07/15/2012 1 1 Scheduling Instructions Your provider has recommended an appoint ment with [facility] Ophthalmology. You may call [phone] to schedule your a ppointment. If you prefer, a loading machine operator will contact you within the next 3 business d ays to assist you in setting up this appointment. Consult/Transfer Care (Routine) - Closed Specialty Diagnoses / Procedures Referred By Contact Shayy stone To Contact Emergency Departm ent [address] [place] [address] Referral ID Status Reason Start Date Expiration Date Visits Requ ested Visits Authorized [id number] Closed 07/15/2012 1 1 Scheduling Instructions Your provider has recommended an appoint ment with [facility]. You may call [phone] to erick edule your appointment. If you prefer, a loading machine operator will contact you within the ne xt 3 business days to assist you in setting up this appointment. Procedure/Equipment (Routine) - Closed Specialty Diagnoses / Procedures Referred By Contact Refer red To Contact Procedures Rh Emergency Department XR KNEE AP/MO/LAT RIGHT [address] [facility] ([place]) [place] [address] Referral ID Status Reason Start Date Expiration Date Visits Requ ested Visits Authorized [id number] Closed 07/15/2012 1 1 Procedure/Equipment (Routine) - Closed Specialty Diagnoses / Procedures Referred By Contact Refer red To Contact Procedures Emergency Department XR KNEE AP/MO/LAT LEFT [address] [facility] ([place] [place] [address] Referral ID Status Reason Start Date Expiration Date Visits Requ ested Visits Authorized [id number] Closed 07/15/2012 1 1 Procedure/Equipment (Routine) - Closed Specialty Diagnoses / Procedures Referred By Contact Refer red To Contact Procedures Emergency Department XR WRIST AP/OBL/LAT 3 VIEWS [address] [place] [address] Referral ID Status Reason Start Date Expiration Date Visits Requ ested Visits Authorized [id number] Closed 07/15/2012 1 1 Procedure/Equipment (Routine) - Closed Specialty Diagnoses / Procedures Referred By Contact Refer red To Contact Procedures Emergency Department CT SPECIAL MIDFACE [address] [place] [address] Referral ID Status Reason Start Date Expiration Date Visits Requ ested Visits Authorized [id number] Closed 07/15/2012 1 1 Procedure/Equipment (Routine) - Closed Specialty Diagnoses / Procedures Referred By Contact Refer red To Contact Procedures Emergency Department CT HEAD WITHOUT CONTRAST [address] [place] [address] Referral ID Status Reason Start Date Expiration Date Visits Requ ested Visits Authorized [id number] Closed 07/15/2012 1 1 Reason for Visit Reason Comments HEAD INJURY--ED SYNCOPE/NEAR--SYNCOPE--ED Encounter Details Date Type Department Care Team Description 07/15/2012 Emergency [facility] Emergency Dept Lupillo Mckeon, Orbital fracture; [address] Ton Dumont MD Facial trauma; [place] [address] [address] Frontal sinus fracture; [phone] Other facial bones, closed fracture; [place], [place] Head injury, unspecified; [address] Pain in joint, forearm; [phone] Pain in joint, lower leg; (Work) Noncollision [...] documented in this encounter Discharge Instructions Discharge Alma Seals PA-C - 07/15/2012 3:09 PM CDT Images [...] breaks) you have. Follow-up care is a amado part of your treatment and safety. Be [...] Where can you learn more? Go to [employer] and enter M349 in the search box. ?? [phone] [employer] documented in this encounter Medications at Time of Discharge Medication Sig Dispensed Refills Start Date End Date FLONASE 50 MCG/ACT NA Use two sprays in each 1 11 SUSPIndications: Sinus nostril once daily. Infection LISINOPRIL-HYDROCHLOROT [...] Ornelas MD Otolaryngology - PGY 2 P: [phone] [facility] Bar Alfaro MD - 07/15/2012 2:45 PM CDT I have neither interviewed nor examined this patient in the emergency department. I have not been involved in the management plan for this patient in the emergency department. Bar Alfrao MD 07/24/2012, 11:53 AM [facility] documented in this encounter ED Notes Alisa Mendiola - 07/15/2012 3:30 PM CDT [facility] ED Nursing Discharge Note Vital Signs: BP: [...] pharmacy by Alisa Shen student nurse to mixing picker tender prescriptions. ---End of Report--- Lupillo Mckeon MD - 07/15/2012 3:11 PM CDT [facility] Emergency Department Attending Supervision Note I have [...] tylenol prior to going for x rays. YT Alma Hernandez PA-C - 07/15/2012 11:28 AM CDT [facility] Emergency Department Visit Note Chief Complaint: HEAD [...] of 07/15/12 CT HEAD WO CONT Narrative: [facility] HEAD CT AND MIDFACE CT 07/15/2012 INDICATION: [...] shift or stroke. CT SPECIAL MIDFACE Narrative: [facility] HEAD CT AND MIDFACE CT 07/15/2012 INDICATION: [...] Consultation: ENT Phone consult: Ophthalmology, Neurosurgery Analgesics Babcock Tester patient/family Re-evaluate patient Check response to treatment [...] OTOLARYNGOLOGY INPT Routine 07/24/2012 11:53 CONSULT AM [facility] XR WRIST LT 3 VIEWS STAT 07/15/2012 [...] Results OTOLARYNGOLOGY INPT CONSULT (07/24/2012 11:53 AM [facility]) Lupillo Mckeon MD CONSULT INPATIENT/RH XR WRIST [...] AM CDT Narrative 07/15/2012 2:07 PM CDT [facility] HEAD CT AND MIDFACE CT 07/15/2012 INDICATION: [...] note might be different from the original. [facility] HEAD CT AND MIDFACE CT 07/15/2012 INDICATION: [...] AM CDT Narrative 07/15/2012 2:07 PM CDT [facility] HEAD CT AND MIDFACE CT 07/15/2012 INDICATION: [...] note might be different from the original. [facility] HEAD CT AND MIDFACE CT 07/15/2012 INDICATION: [...] oxycodone. documented in this encounter Care Teams Drawer Waxer Relationship Specialty Start Date End Date Juan José Michelle MD PCP - General Internal Medicine 07/15/12 documented as of this encounter
--- OUTSIDE RECORDS SUMMARY | 2022-07-19 12:22 | XMS_ITS | Encounter Summary ---
:1945 Author Organization [facility] Address [address] [place] [address] Care Team Providers Name Role Phone Unassigned, Provider Primary Care Provider Unavailable Reason for Visit Reason Comments HEADACHE runny nose, R ear slightly p ainful and feels plugged. Encounter Details Date Type Department Care Team Description 06/08/2004 Office Visit [facility] Juan José Hdz, OTITIS MEDIA NOS [address] [facility]. JC (Primary Dx) [place] [address] [facility] [phone] [address] [place], [place] [id number] Social History Tobacco Use Types Packs/Day Years [...] 10D, rtc next friday before leaving for [place]. WILBERT Rebolledo documented in this encounter Plan of Treatment Not on filedocumented as of this encounter Visit Diagnoses Diagnosis Unspecified otitis media - Primary documented in this encounter Care Teams Investigator Vice Relationship Specialty Start Date End Date Unassigned, Provider PCP - General 10/25/00 07/14/[address] [place] [address] documented as of this encounter
--- OUTSIDE RECORDS SUMMARY | 2022-07-19 12:22 | XMS_ITS | Encounter Summary ---
:1945 Author Organization [facility] Address [address] [place] [address] Care Team Providers Name Role Phone Juan José Michelle MD Primary Care Provider Unavailable Encounter Details Date Type Department Care Team Description 09/16/2013 Office Visit [facility] Rashel Brenner, Primary open-angle glaucoma (Primary Dx); [address] Severe stage glaucoma; [place] [address] Orbital fracture left eye [phone] [place], [place] [id number] (Wo rk) Social History Tobacco Use Types [...] please allow enough time for your exam. 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 Last saw this [...] done by and decisions made by me. M REVIEW MEDICAL DIRECTOR Rashel Brenner MD - 09/09/2013 8:08 AM CST M REVIEW MEDICAL DIRECTOR documented in this encounter Plan of Treatment Not on filedocumented as of this encounter Visit Diagnoses Diagnosis Primary open-angle glaucoma - Primary Severe stage glaucoma Orbital fracture left eye Other facial bones, closed fracture documented in this encounter Care Teams Drill Press Operator Numerical Control Relationship Specialty Start Date End Date Juan José Michelle MD PCP - General Internal Medicine 07/15/12 documented as of this encounter
--- OUTSIDE RECORDS SUMMARY | 2022-07-19 12:22 | XMS_ITS | Encounter Summary ---
:1945 Author Organization [facility] Address [address] [place] [address] Care Team Providers Name Role Phone Juan José Michelle MD Primary Care Provider Unavailable Encounter Details Date Type Department Care Team Description 10/01/2012 Office Visit [facility] Rashel Brenner, Primary open-angle glaucoma (Primary Dx); [address] [place] [address] [phone] [place], [place] [phone] (Wo rk) Social History Tobacco Use Types [...] please allow enough time for your exam. ICAL NURSE EDUCATOR documented in this encounter Progress Notes Rashel [...] with Travatan+Combigan OS. ??? Severe stage glaucoma ICAL NURSE EDUCATOR documented in this encounter Plan of Treatment Not on filedocumented as of this encounter Visit Diagnoses Diagnosis Primary open-angle glaucoma(365.11) - Pr imary Primary open-angle glaucoma Severe stage glaucoma documented in this encounter Care Teams Metal Hanger Relationship Specialty Start Date End Date Juan José Michelle MD PCP - General Internal Medicine 07/15/12 documented as of this encounter
--- OUTSIDE RECORDS SUMMARY | 2022-07-19 12:22 | XMS_ITS | Encounter Summary ---
:1945 Author Organization [facility] Address [address] [place] [address] Care Team Providers Name Role Phone Unassigned, Provider Primary Care Provider Unavailable Encounter Details Date Type Department Care Team Description 11/27/2006 Office Visit [facility] [address] Marcos Araujo Jr., Clinic [address] [place] [address] [place], [place] [phone] Social History Tobacco Use Types Packs/Day [...] 0000 Note Time: 11/27/06 0001 Status: Signed Sheet Mill Supervisor: Madelaine Santiago RN (Registered Nurse) Travel Clinic [...] on filedocumented in this encounter Care Teams Nuclear Powerplant Mechanic Relationship Specialty Start Date End Date Unassigned, Provider PCP - General 10/25/00 07/14/[address] [place] [address] documented as of this encounter
--- OUTSIDE RECORDS SUMMARY | 2022-07-19 12:22 | XMS_ITS | Encounter Summary ---
:1945 Author Organization [facility] Address [address] [place] [address] Care Team Providers Name Role Phone Unassigned, Provider Primary Care Provider Unavailable Reason for Visit Reason Comments Travel Consult Encounter Details Date Type Department Care Team Description 03/27/2012 Initial Consult [facility] Odalis Willis or Clinic C, MJ, [place] [address] [employer] [address] [place] [address] travel (Primary Dx) [place] [address] [facility] [phone] [place] [address] Social History Tobacco Use Types [...] states they are planning to travel to: [facility] Plans include travel to and/or lodging at: [...] counseling documented in this encounter Care Teams Route Salesman Relationship Specialty Start Date End Date Unassigned, Provider PCP - General 10/25/00 07/14/[address] [place] [address] documented as of this encounter
--- OUTSIDE RECORDS SUMMARY | 2022-07-19 12:22 | XMS_ITS | Encounter Summary ---
:1945 Author Organization [facility] Address [address] [place] [address] Care Team Providers Name Role Phone Juan José Michelle MD Primary Care Provider Unavailable Encounter Details Date Type Department Care Team Description 08/20/2012 Office Visit [facility] Rashel Brenner, Primary open-angle glaucoma (Primary Dx); [address] Orbital fracture left eye; [place] [address] Hypermetropia; [phone] [place], [place] Severe stage glaucoma [address] (Wo rk) Social History Tobacco Use Types [...] please allow enough time for your exam. STUDY TECHNOLOGIST documented in this encounter Progress Notes Rashel [...] left eye ??? Hypermetropia Severe stage glaucoma STUDY TECHNOLOGIST documented in this encounter Plan of Treatment Not on filedocumented as of this encounter Visit Diagnoses Diagnosis Primary open-angle glaucoma(365.11) - Pr imary Primary open-angle glaucoma Orbital fracture left eye Other facial bones, closed fracture Hypermetropia Severe stage glaucoma documented in this encounter Care Teams Machine Tack Puller Relationship Specialty Start Date End Date Juan José Michelle MD PCP - General Internal Medicine 07/15/12 documented as of this encounter
--- OUTSIDE RECORDS SUMMARY | 2022-07-19 12:22 | XMS_ITS | Encounter Summary ---
:1945 Author Organization [facility] Address [address] [place] [address] Care Team Providers Name Role Phone Unassigned, Provider Primary Care Provider Unavailable Encounter Details Date Type Department Care Team Description 12/12/2008 Office Visit [facility] [address] Thomas Martin MD Clinic [address] [place] [address] [facility] [address] [place] [address] [place] [address] [phone] Social History Tobacco Use Types Packs/Day Years [...] 0000 Note Time: 12/12/08 0001 Status: Signed Manager Respiratory Care: Abbi Shaver (Resource) Travel Clinic Initial Visit Patient is seen in Travel Clinic Patient is seen in Travel Clinic accompanied by spouse, for travel education and counseling. Barrier(s) to care: None. TRAVEL PLANS Patient states they are planning to travel to: [facility] Plans include travel to and/or lodging [...] on filedocumented in this encounter Care Teams Corporate Librarian Relationship Specialty Start Date End Date Unassigned, Provider PCP - General 10/25/00 07/14/[address] [place] [address] documented as of this encounter
--- OUTSIDE RECORDS SUMMARY | 2022-07-19 12:22 | XMS_ITS | Encounter Summary ---
:1945 Author Organization [facility] Address [address] [place] [address] Care Team Providers Name Role Phone Unassigned, Provider Primary Care Provider Unavailable Reason for Visit Reason Comments Other Encounter Details Date Type Department Care Team Description 02/19/[address] Xiao Rushing Other [facility] [place], [place] [address] Social History Tobacco Use Types Packs/Day Years Used Date Smoking Tobacco: Former Alcohol Use Standard Drinks/Week Comments Not Asked 0 (1 standard drink = 0.6 oz pure alcoho l) Sex Assigned at Date Recorded Not on file documented as of this encounter Progress Notes Xiao Rushing - 02/19/2006 1:13 PM CDT Phone Note filed by Xiao Rushing RN at 01/01/112 Author: Xiao Rushing RN Service: (none) Author Type: (none) Filed: 01/01/119 Note Time: 02/19/063 Status: Signed Long Term Care Administrator: Irma Sanz Called patient to let him know that updated yellow vaccine book and it its ready for pickup as he requested to include YF lot #. He will come by today or tomorrow. Created on 19Feb2006 1:13pm by XIAO RUSHING R PACKER AND SORTER documented in this encounter Plan of Treatment Not on filedocumented as of this encounter Visit Diagnoses Not on filedocumented in this encounter Care Teams Campaign Director Relationship Specialty Start Date End Date Unassigned, Provider PCP - General 10/25/00 07/14/[address] [place] [address] documented as of this encounter
--- OUTSIDE RECORDS SUMMARY | 2022-07-19 12:22 | XMS_ITS | Encounter Summary ---
:1945 Author Organization [facility] Address [address] [place] [address] Care Team Providers Name Role Phone Unassigned, Provider Primary Care Provider Unavailable Reason for Visit Reason Comments SHOT,FLU Encounter Details Date Type Department Care Team Description 09/02/2006 Office Visit [facility] Need for Prophylactic [address] [place] [address] Inoculation Against [phone] Influenza (Prim jamaal Dx) Social History Tobacco [...] of bleeding problem: no History of [facility] [place] within 6 weeks of receiving an influenza immunization: no (If YES to any of the above, consult MD) OBJECTIVE: Temp ASSESSMENT: Eligible for flu vaccine today: YES PLAN: Administer vaccine: Education: discussed possible side effects and provided health education materials. Flakita Gao LPN 09/02/2006 3:51 PM ECHNICAL LABORATORY TECHNICIAN documented in this encounter Plan of Treatment Not on filedocumented as of this encounter Visit Diagnoses Diagnosis Need for prophylactic vaccination and in oculation against influenza - Primary documented in this encounter Care Teams Director Behavioral Health Relationship Specialty Start Date End Date Unassigned, Provider PCP - General 10/25/00 07/14/[address] [place] [address] documented as of this encounter
--- OUTSIDE RECORDS SUMMARY | 2022-07-19 12:22 | XMS_ITS | Encounter Summary ---
:1945 Author Organization [facility] Address [address] [place] [address] Care Team Providers Name Role Phone Juan José Michelle MD Primary Care Provider Unavailable Encounter Details Date Type Department Care Team Description 12/16/2013 Office Visit [facility] Rashel Brenner, Primary open-angle glaucoma (Primary Dx); [address] 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 Leonel documented in this encounter Plan of Treatment Not on filedocumented as of this encounter Visit Diagnoses Diagnosis Primary open-angle glaucoma - Primary Orbital fracture, with routine healing, subsequent encounter Severe stage glaucoma Hyperopia, bilateral [place] Anatomical narrow angle borderline glauc ashley documented in this encounter Care Teams Sole Layer Relationship Specialty Start Date End Date Juan José Michelle MD PCP - General Internal Medicine 07/15/12 documented as of this encounter
--- OUTSIDE RECORDS SUMMARY | 2022-07-19 12:22 | XMS_ITS | Encounter Summary ---
:1945 Author Organization [facility] Address [address] [place] [address] Care Team Providers Name Role Phone Juan José Michelle MD Primary Care Provider Unavailable Reason for Visit Procedure/Equipment (Routine) - Closed Specialty Diagnoses / Procedures Referred By Contact Refer red To Contact Procedures Emergency Department CT HEAD WITHOUT CONTRAST [address] [place] [address] Referral ID Status Reason Start Date Expiration Date Visits Requ ested Visits Authorized [id number] Closed 07/15/2012 1 1 Encounter Details Date Type Department Care Team Description 07/15/[address] [place], [place] [id number] Social History Tobacco Use Types Packs/Day Years [...] AM CDT Narrative 07/15/2012 2:07 PM CDT [facility] HEAD CT AND MIDFACE CT 07/15/2012 INDICATION: [...] note might be different from the original. [facility] HEAD CT AND MIDFACE CT 07/15/2012 INDICATION: [...] 11:52 AM CDT Narrative 07/15/2012 2:07 PM [facility] HEAD CT AND MIDFACE CT 07/15/2012 [...] note might be different from the original. [facility] HEAD CT AND MIDFACE CT 07/15/2012 INDICATION: [...] on filedocumented in this encounter Care Teams Security System Analyst Relationship Specialty Start Date End Date Juan José Michelle MD PCP - General Internal Medicine 07/15/12 documented as of this encounter
--- OUTSIDE RECORDS SUMMARY | 2022-07-19 12:22 | XMS_ITS | Encounter Summary ---
:1945 Author Organization [facility] Address [address] [place] [address] Care Team Providers Name Role Phone Unassigned, [...] on filedocumented in this encounter Care Teams Cooler Room Worker Relationship Specialty Start Date End Date Unassigned, Provider PCP - General 10/25/00 07/14/[address] [place] [address] documented as of this encounter
--- OUTSIDE RECORDS SUMMARY | 2022-07-19 12:22 | XMS_ITS | Encounter Summary ---
:1945 Author Organization [facility] Address [address] [place] [address] Care Team Providers Name Role Phone Juan José Michelle MD Primary Care Provider Unavailable Encounter Details Date Type Department Care Team Description 06/03/2013 Office Visit [facility] Primary open-angle [address] glaucoma(365.11) ([place] [address] Dx) [phone] Social History Tobacco Use Types Packs/Day Years [...] glaucoma documented in this encounter Care Teams Lineman Relationship Specialty Start Date End Date Juan José Michelle MD PCP - General Internal Medicine 07/15/12 documented as of this encounter
--- OUTSIDE RECORDS SUMMARY | 2022-07-19 12:22 | XMS_ITS | Encounter Summary ---
:1945 Author Organization [facility] Address [address] [place] [address] Care Team Providers Name Role Phone Unassigned, Provider Primary Care Provider Unavailable Reason for Visit Reason Comments PAIN, NOS lf thumb--intermittent--2 w ks Encounter Details Date Type Department Care Team Description 03/19/2006 Office Visit [facility] Sharonda Johnson PAIN IN LIMB (Primary [address] MD Damaris [place]) [place] [address] [address] [phone] [place] [address] Social History Tobacco Use Types Packs/Day Years [...] documented in this encounter Patient Instructions Patient Kpqblizovzhx71/05/2006 2:40 PM CDT go to lab for [...] off Atenolol, on a green pill per [place] , pt will bring in records OBJECTIVE: [...] contributed to by that, get records from [place]. FU 1-4 wks. prn. documented in this [...] Organization Address City/State/ZIP Code Phon e Number [facility] [phone] [facility] [address] [phone] HEMOGRAM/PLTS (03/19/2006 4:00 PM CDT) athologist Signature WBC 10.1 4.0 - 11.0 [facility] k/ul RBC 4.85 4.5 - 5.9 [facility] M/ul Hemoglobin 14.9 13.5 - 17.5 [facility] g/dl HCT 43.1 41.0 - 53.0 [facility] % MCV 88.8 80 - 100 fl [facility] MCH 30.7 26 - 34 pg [facility] 34.6 32 - 36 % [facility] RDW 14.4 11.5 - 14.5 [facility] % Platelets 240 150 - 450 [facility] k/ul Specimen Anatomical Collection Method Collection Time Receive d Time (Source) Location / / Volume Laterality 03/19/2006 4:00 PM 6 4:01 CDT PM CDT Sharonda Johnson MD LAB_1 Performing Organization Address City/[facility]/ZIP [facility] Phon e Number [facility] [phone] [phone] URIC ACID (03/19/2006 4:00 PM CDT) athologist Signature Uric Acid 8.4 4.3 - 8.7 [facility] mg/dl Specimen Anatomical Collection Method Collection Time Receive d Time (Source) Location / / Volume Laterality 03/19/2006 4:00 PM 6 4:01 CDT PM CDT Sharonda Johnson MD LAB_1 Performing Organization Address City/[facility] Phon e Number [facility] [phone] [phone] Hand 3 views (03/19/2006) Anatomical Region Laterality [...] Primary documented in this encounter Care Teams Tug Master Relationship Specialty Start Date End Date Unassigned, Provider PCP - General 10/25/00 07/14/[address] [place] [address] documented as of this encounter
--- OUTSIDE RECORDS SUMMARY | 2022-07-19 12:22 | XMS_ITS | Encounter Summary ---
:1945 Author Organization [facility] Address [address] [place] [address] Care Team Providers Name Role Phone Unassigned, Provider Primary Care Provider Unavailable Encounter Details Date Type Department Care Team Description 12/04/2006 Correspondence Emergency Dept Emergency, [facility] D/C PATIENT [address] [facility] [place] [address] Social History Tobacco Use Types Packs/Day Years [...] on filedocumented in this encounter Care Teams Shoemaking Cutter Relationship Specialty Start Date End Date Unassigned, Provider PCP - General 10/25/00 07/14/12 [address] [place] [address] documented as of this encounter
--- OUTSIDE RECORDS SUMMARY | 2022-07-19 12:22 | XMS_ITS | Encounter Summary ---
:1945 Author Organization [facility] Address [address] [place] [address] Care Team Providers Name Role Phone Unassigned, Provider Primary Care Provider Unavailable Encounter Details Date Type Department Care Team Description 04/21/2004 Correspondence None Unknown, Physici an consent to release [address] [place], [place] [address] (Wo rk) Social History Tobacco Use Types Packs/Day Years Used Date Smoking Tobacco: Never Assessed Sex Assigned at Date Recorded Not on file documented as of this encounter Progress Notes Unknown, Physician - 04/21/2004 12:00 AM CDT documented in this encounter Plan of Treatment Not on filedocumented as of this encounter Visit Diagnoses Not on filedocumented in this encounter Care Teams Information Systems Planner Relationship Specialty Start Date End Date Unassigned, Provider PCP - General 10/25/00 07/14/12 [address] [place] [address] documented as of this encounter
--- OUTSIDE RECORDS SUMMARY | 2022-07-19 12:22 | XMS_ITS | Encounter Summary ---
:1945 Author Organization [facility] Address [address] [place] [address] Care Team Providers Name Role Phone Unassigned, Provider Primary Care Provider Unavailable Reason for Visit Reason Comments SHOT,FLU Encounter Details Date Type Department Care Team Description 08/28/2005 Office Visit [facility] VACCINE FOR INFLUENZA [address] 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 Severe allergy to eggs: no Previous severe reaction to thimerosal : no History of paralysis with Guillian Demorest: no Ill appearing with increased respiratory rate, [...] influenza documented in this encounter Care Teams Director Of Financial Aid Relationship Specialty Start Date End Date Unassigned, Provider PCP - General 10/25/00 07/14/[address] [place] [address] documented as of this encounter
--- OUTSIDE RECORDS SUMMARY | 2022-07-19 12:22 | XMS_ITS | Encounter Summary ---
:1945 Author Organization [facility] Address [address] [place] [address] Care Team Providers Name Role Phone Juan José Michelle MD Primary Care Provider Unavailable Encounter Details Date Type Department Care Team Description 08/20/2012 Office Visit [facility] Primary open-angle [address] glaucoma (Primary Dx) [place] [address] Social History Tobacco Use Types Packs/Day Years [...] glaucoma performed by TEAGAN Paige. TEAGAN Paige EN IMPLEMENT MECHANIC documented in this encounter Plan of Treatment Not on filedocumented as of this encounter Visit Diagnoses Diagnosis Primary open-angle glaucoma(365.11) - Pr imary Primary open-angle glaucoma documented in this encounter Care Teams Forest Ecology Professor Relationship Specialty Start Date End Date Juan José Michelle MD PCP - General Internal Medicine 07/15/12 documented as of this encounter
--- OUTSIDE RECORDS SUMMARY | 2022-07-19 12:22 | XMS_ITS | Encounter Summary ---
:1945 Author Organization [facility] Address [address] [place] [address] Care Team Providers Name Role Phone Unassigned, Provider Primary Care Provider Unavailable Encounter Details Date Type Department Care Team Description 06/16/2000 PN Conversion Only [facility] [address] [facility] Jan Stock MD [address] [place] [address] [place] [address] [facility] [place] [address] [phone] Social History Tobacco Use Types Packs/Day Years Used Date Smoking Tobacco: Never Assessed Sex Assigned at Date Recorded Not on file documented as of this encounter Plan of Treatment Not on filedocumented as of this encounter Visit Diagnoses Not on filedocumented in this encounter Care Teams Aoc Director Combat Operations Officer Relationship Specialty Start Date End Date Unassigned, Provider PCP - General 10/25/00 07/14/12 [address] [place] [address] documented as of this encounter
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
--- OUTSIDE RECORDS SUMMARY | 2022-07-19 12:22 | XMS_ITS | Encounter Summary ---
:1945 Author [facility] Address [address] [place] [address] Care Team Providers Name Role Phone Unassigned, Provider Primary Care Provider Unavailable Encounter Details Date Type Department Care Team Description 04/21/2004 Office Visit [facility] ACUTE APICAL PERIODONTITIS; [address] [facility]; [place], [place] [address] HYPERTENSION NOS [phone] Social History Tobacco Use Types Packs/Day Years [...] by someone important to you? -NOT ASKED color room attendant offered -NOT APPLICABLE. Health Education given -NO. Primary provider: Provider Unassigned, Physician Contact phone number [phone] (home) [phone] (work) Alternate phone number N/A Fausto Mahajan [...] hypertension documented in this encounter Care Teams Proof Sorter Relationship Specialty Start Date End Date Unassigned, Provider PCP - General 10/25/00 07/14/[address] [place] [address] documented as of this encounter
--- OUTSIDE RECORDS SUMMARY | 2022-07-19 12:22 | XMS_ITS | Encounter Summary ---
:1945 [address] [facility] Address [address] [place] [address] Care Team Providers Name Role Phone Unassigned, Provider Primary Care Provider Unavailable Reason for Visit Reason Comments CONGESTION, SINUS Sore Throat Encounter Details Date Type Department Care Team Description 12/24/2006 Office Visit [facility] Fausto Andersen, Sinus Infection (Primary Dx) ; [address] Sore Throat; [place] [address] HYPERTENSION NOS; [phone] Obesity, Unspec ified Social History Tobacco Use [...] A, RAPID SCREEN (12/24/2006 4:09 PM CDT) [facility] Method Time Signature Patient Home None [facility] Phone # Patient Work None [facility] Phone # Grp A Rapid Negative NEG [facility] Screen Grp A Culture Negative NEG [facility] Final Specimen Anatomical Collection Method Collection Time Receive d Time (Source) Location / / Volume Laterality 12/24/2006 4:09 PM 7 4:10 CDT PM CDT Fausto Andersen MD LAB_1 Performing Organization Address City/State/ZIP Code Phon e Number [facility] [phone] [facility] [address] [phone] documented in this encounter Visit Diagnoses Diagnosis Sinus Infection - Primary Sore throat Acute pharyngitis HYPERTENSION NOS Unspecified essential hypertension Obesity, unspecified ([facility]) Obesity, unspecified documented in this encounter Care Teams Enrichment Specialist Relationship Specialty Start Date End Date Unassigned, Provider PCP - General 10/25/00 07/14/[address] [place] [address] documented as of this encounter
--- OUTSIDE RECORDS SUMMARY | 2022-07-19 12:22 | XMS_ITS | Encounter Summary ---
:1945 Author Organization [facility] Address [address] [place] [address] Care Team Providers Name Role Phone Unassigned, Provider Primary Care Provider Unavailable Encounter Details Date Type Department Care Team Description 12/09/2008 PN Conversion Only [employer] [address] [place] [address] Social History Tobacco Use Types Packs/Day Years Used Date Smoking Tobacco: Never Alcohol Use Standard Drinks/Week Comments Not Asked 0 (1 standard drink = 0.6 oz pure alcoho l) Sex Assigned at Date Recorded Not on file documented as of this encounter Plan of Treatment Not on filedocumented as of this encounter Visit Diagnoses Not on filedocumented in this encounter Care Teams Chip Mixer Relationship Specialty Start Date End Date Unassigned, Provider PCP - General 10/25/00 07/14/12 [address] [place] [address] documented as of this encounter
--- OUTSIDE RECORDS SUMMARY | 2022-07-19 12:22 | XMS_ITS | Encounter Summary ---
:1945 Author Organization [facility] Address [address] [place] [address] Care Team Providers Name Role Phone Unassigned, Provider Primary Care Provider Unavailable Reason for Visit Reason Comments SHOT,FLU Encounter Details Date Type Department Care Team Description 09/13/2004 Office Visit [facility] VACCINE FOR INFLUENZA [address] 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
== END 2022-07-19 12:05 | disposition home or self-care (01) ==
PROVIDERS: PCP Internal Medicine; Visit Provider Internal Medicine
DX: Z12.11 Encounter for screening for malignant neoplasm of colon (principal); K57.30 Diverticulosis of large intestine without perforation or abscess without bleeding; Z86.010 Personal history of colon polyps
CPT/HCPCS: 45378

== ENCOUNTER 2022-09-10 13:30 | Outpatient (CLI) | payer MEDICARE, SELFPAY ==
--- NOTE | 2022-09-10 13:45 | MR_ITS ---
[facility] [address] [facility] [address] Phone:?[phone] Fax:?[phone] Referring Physician Information: Melvin Lal M.D. [address] [facility] [address] Phone:?[phone] Fax:?[phone] Patient:Esthela Calhoun D.O.B:?1945 Sex:?Male Phone:?[phone] [facility] MRN:?[id number] Exam Date:?09/10/2022 ? EXAM: MRI EXAMINATION OF THE RIGHT HIP CLINICAL INFORMATION: The patient is a 76-year-old with right hip pain. PRIOR SURGERY: None reported. COMPARISON STUDIES: There are no prior studies available for comparison. TECHNICAL INFORMATION: Using a 1.5T MR scanner and a localizing surface coil: 4.0 mm?coronals: PD, T2 4.0 mm?sagittals: PD, T2 3.0 mm?oblique axials: PD 4.0 mm?straight axials: T2FS 4.0 mm?coronals: T1, STIR of pelvis and hips FINDINGS: Hip joint: Osteoarthritic changes of the right hip are present with a moderate right hip joint effusion. Articular Cartilage: Broad-based areas of full-thickness chondral loss can be seen along the weightbearing surfaces of the right hip. There is low signal intensity debris within the joint space, in keeping with synovitis or intra- articular hemorrhage. Small loose bodies within the joint space cannot be excluded. Labrum: Broad-based degeneration, fraying, and poorly defined tearing of the right acetabular labrum can be seen. There is no evidence for well-defined paralabral ganglion cyst formation. Proximal femur: The proximal femur is abnormal in appearance. There is extensive marrow edema seen involving the femoral head and neck, noted to best advantage on coronal series 2 image 17. Flattening and irregularity of the articular surfaces can be seen, in keeping with osteoarthritic change and/or subcortical fracture. The findings may be in part related to stress changes of the proximal femur. No well-defined changes are seen to suggest avascular necrosis. No definite cam lesions are identified. There are no fibrocystic osseous lesions. Acetabulum: Extensive marrow edema can be seen along the articular surfaces of the right acetabulum with cortical irregularity, subcortical cystic change, and areas of suspected subcortical fracture. The findings may relate to osteoarthritic and/or stress changes along the articular surfaces. No evidence for displaced fracture can be seen. There is diminished lateral center edge angle of the acetabulum, in keeping with a low volume appearance. The findings may relate to chronic dysplastic change. The ligamentum teres is intact. Myotendinous Structures: The greater trochanteric attachments of the gluteus medius and gluteus minimus are normal. The common hamstring tendon origin is normal. The adductors and flexors appear unremarkable. Bursae: Mild fluid can be seen within the iliopsoas bursal regions bilaterally. No other abnormal bursal fluid collections about the pelvis or hips can be seen. There is no evidence for greater trochanteric bursitis. Pelvic soft tissues: The soft tissues of the pelvis appear otherwise preserved. There is no evidence of soft tissue mass or adenopathy. No acute intrapelvic abnormalities are seen. Pelvic osseous structures: Large [id number] coronal survey images show no evidence of a pelvic fracture or demonstrable stress injury. The sacrum and SI joints appear normal. The symphysis pubis is normal in appearance. Lumbosacral junction: Diffuse degenerative disc disease of the lumbar spine can be seen. CONCLUSION: 1. Extensive osteoarthritic and/or stress changes can be seen involving the right hip with flattening and irregularity of the articular surfaces and extensive areas of subcortical irregularity, subcortical cystic change, and suspected subcortical fracture. Marrow edema can be seen along the articular surfaces of the acetabulum as well as within the femoral head and neck. 2. Moderate right hip joint effusion with low signal intensity debris. Loose bodies cannot be excluded. 3. No musculotendinous abnormalities about the right hip are seen. 4. Mild bilateral changes of iliopsoas bursitis. 5. 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 AEC Electronically signed on 09/11/2022 7:06:00 AM by George Keene M.D.
== END 2022-09-10 13:31 | disposition home or self-care (01) ==
PROVIDERS: PCP Internal Medicine; Visit Provider Internal Medicine
DX: M25.551 Pain in right hip (principal); M25.451 Effusion, right hip; M16.11 Unilateral primary osteoarthritis, right hip; M51.36 Other intervertebral disc degeneration, lumbar region
CPT/HCPCS: 73721

== ENCOUNTER 2022-11-30 12:58 | Outpatient (REF) | payer MEDICARE, SELFPAY | END 2022-11-30 12:59 | disposition home or self-care (01) | LOC: LAB 12:58 | PROVIDERS: PCP Internal Medicine; Visit Provider Orthopaedic Surgery Sports Medicine | DX: Z01.818 Encounter for other preprocedural examination (principal) | CPT/HCPCS: 36415; 86850; 86900; 86901 ==

== ENCOUNTER 2022-12-02 11:14 | Day surgery (SDC) | payer MEDICARE, SELFPAY ==
[2022-12-02] VITALS (25 sets, daily range): BP systolic 90–132; BP diastolic 59–101; PULSE 72–117; RESP 14–18; TEMP 36.2–37.1; O2SAT 88–98; BMI 37.6
[2022-12-02] MEDS: fentaNYL 100 MCG/2 ML inj IVP (07:54)
[2022-12-02] MEDS: ACETAMINOPHEN 500 MG TABLET 1000 MG PO ×3 (07:54→21:30)
[2022-12-02] MEDS: CELECOXIB 200 MG CAPSULE PO ×2 (07:54→20:21)
[2022-12-02] MEDS: OXYCODONE (CR) 10 MG TAB.ER.12H PO (07:54)
[2022-12-02] MEDS: MIDAZOLAM HCL 1 MG/ML inj IVP (07:54)
[2022-12-02] MEDS: LACTATED RINGERS 1000 ML 1,000 ML 100 ML IV (07:55)
--- NOTE | 2022-12-02 12:15 | CRLHL7_ITS ---
For Patients: As a result of the Cures Act, medical imaging exams and procedure reports are released immediately into your electronic medical record. You may view this report before your referring provider. If you have questions, please contact your health care provider. Indication: Hip replacement surgery Technique: AP hip fluoroscopic image. Fluoroscopy time 31.1 seconds. Findings/Impression: Hardware from a right total hip arthroplasty is in satisfactory position. Dictated by Gilmar Chandra MD @ 12/03/2022 6:39:21 AM (Electronically Signed)
--- NOTE | 2022-12-02 12:35 | SUR.PREOP ---
TIME?OUT:?1230 PT/RN/MDA?VERIFICATION?OF?SURGICAL?SITE,?PROCEDURE,?AND?CONSENT OBTAINED?PRIOR?TO?INVASIVE?PROCEDURE. right hip
--- NOTE | 2022-12-02 12:39 | W.ANESCHARGE ---
Anesthesia Charges Start Date/Time Anesthesia Start Date: 12/02/22 Anesthesia Start Time: 12:53 Stop Date/Time Anesthesia Stop Date: 12/02/22 Anesthesia Stop Time: 15:03 Summary Extremes of Age - Over 70 or under 1: MDA
--- NOTE | 2022-12-02 12:39 | W.PM.NB ---
Nerve Block Nerve Block Time Seen by Provider: 12:30 Date Seen: 12/02/22 Type of block requested by surgeon for post-operative analgesia: LEE ANN/LFCN Side: right Time out performed: Yes Verification of patient name: Yes Verification of date of : Yes Site marking: site marked Name of person performing procedure: Alli Continuous monitoring Was continuous monitoring of O2 sat, B/P, surveillance system monitor, recorded every 15 minutes?: Yes Procedure Checklist: sterile prep, needles and gloves Ultrasound guided. Images saved: Yes Medications given in 5ml increments after negative aspiration: Ropivicaine %: 0.5 mL: 30 Needle gauge: 20 Decadron (mg): 10 Precedex (mcg): 25 Patient tolerated procedure well: Yes Additional comments: Needle noted below psoas tendon needle noted adjacent to LFCN Block Charges Block Charge (with Pro Fee): Other Periph Nerve Block Use of Ultrasound Machine for Block: Yes- US Guidance/pain block
--- NOTE | 2022-12-02 13:02 | CRLHL7_ITS ---
For Patients: As a result of the Cures Act, medical imaging exams and procedure reports are released immediately into your electronic medical record. You may view this report before your referring provider. If you have questions, please contact your health care provider. Indication: Postop Technique: AP hip centered pelvis and lateral view right hip. Findings/Impression: Hardware from a right total hip arthroplasty is in satisfactory position. Bone alignment is normal. No sign of acute fracture. Postop changes are within normal limits. Dictated by Gilmar Chandra MD @ 12/03/2022 6:42:02 AM (Electronically Signed)
[2022-12-02] MEDS: CEFAZOLIN 2 GM in 0.9 % SODIUM CHLORIDE Mini-bag 100 ML IVPB ×2 (13:05→19:03)
[2022-12-02] MEDS: TRANEXAMIC ACID 100 MG/ML INJ 1000 MG IV (13:08)
--- NOTE | 2022-12-02 14:31 | P.ORPRC_ITS ---
Procedure Note Date of procedure: 12/02/22 Procedure: PREOPERATIVE DIAGNOSIS: 1. Right hip osteoarthritis, severe, primary POSTOPERATIVE DIAGNOSIS: 1. Right hip osteoarthritis, severe, primary PROCEDURE: 1. Right total hip arthroplasty-anterior approach 2. 22731 - intraoperative fluoroscopy up to 1 hour. SURGEON: Cristian Quinonez MD. CURRICULUM SPECIALIST: Aniket Guzmán PA-C; MARIE Castanon - Of note, a skilled biology laboratory assistant was critical for this case to aid in patient positioning, tissue retraction, limb manipulation/positioning, and closure. ANESTHESIA: General endotracheal anesthetic EBL: 400 mL IMPLANTS: DePuy J&J uncemented total hip Rome cup size 50, hole eliminator, +4 neutral liner Actis stem, high offset, size 6 +5 mm ceramic 32mm head COMPLICATIONS: None evident INDICATIONS: The patient is a pleasant 77-year-old male who has experienced severe right hip pain and difficulty bearing weight. Workup included x-rays which revealed severe osteoarthrosis in the hip. Given the deformity, the dysfunction, and the pain, as well as the failure of nonoperative management, recommendation was made for surgery. FINDINGS: Severe erosion of the femoral head superiorly with complete chondral loss diffusely. Significant osteophytes around the perimeter of the acetabulum. Large effusion upon entering the joint. Significant synovitis with abundant hypertrophied synovial tissue. DESCRIPTION OF PROCEDURE: Following a thorough discussion of risks, benefits, and alternatives consent was obtained and the right hip was marked. The patient was brought to the operating room and placed supine on the operating table. Induction of anesthesia was undertaken. 2 g IV Ancef and 1 g tranexamic acid was administered within 1 hr of incision preoperatively. Proper time-out was performed identifying proper patient, site, procedure. The operative extremity was prepped and draped in the appropriate sterile fashion using ChloraPrep after the patient was positioned on the [place] table with head in neutral alignment and all bony prominences well padded. C-arm fluoroscopic imaging was utilized to confirm proper pelvis rotation and position, and to get true AP films of both the contralateral left, and the affected right hip. This is for comparison. A longitudinal incision was made starting approximately 1 cm distal to the ASIS, and 3-4 cm lateral. The incision was extended distally aiming toward the lateral border the patella. Sharp incision through skin and bovie cautery thr ough the subcutaneous tissue allowed identification of the TFL fascia. This was sharply divided, and the fascia bluntly released from the muscle fibers as we dissected medial. Upon coming to the medial border, we were able to retract the TFL laterally, and penetrated the deeper fascia and identify the crossing circumflex vessels. These were ligated/cauterized. The rectus was elevated from the capsule, and retractors placed laterally and medially along the femoral neck to help with visualization of the capsule. We then performed an inverted T capsulotomy. The capsule was tagged for later repair. Retractors were placed inside the capsule. The femoral neck was visualized after releasing medially down to the lesser trochanter, along the saddle laterally, and up onto the acetabulum. The femoral neck cut was made in line with our preoperative templating. The head was removed in a single piece, and sized. We turned our attention to acetabular preparation. Initially, the labrum was r esected from around the perimeter, the pulvinar was excised, allowing us to visualize the false wall. We started the reaming with a 43 mm reamer. This was medialized down to the true wall. We then enlarged our reamers sequentially up to one size less than the selected cup size. We trialed at the same size and found it to have an excellent fit. The selected cup was then opened, inserted, and impacted in line with the goal of 40? of abduction, and 20-25? of anteversion. This was confirmed on C-arm fluoroscopic imaging to be in the appropriate/goal position. Once the cup was placed we placed a hole eliminator and a liner consistent with preop planning. Attention was turned to the femoral preparation. The limb was extended, externally rotated, and adducted. The posteromedial capsule was released, as retractors were placed allowing excellent access to the proximal femur. Initially a steam box tender was followed by canal finder followed by various broaches. We broached sequentially up to the size noted above, found it to have excellent rotational control, and trialing various heads and necks, revealed that appropriate neck offset, and the above noted head size provided the greatest stability, and muslim of length, and offset. C-arm fluoroscopic imaging confirmed position of the stem, as well as leg lengths, which were compared with the pre procedure all fluoroscopic images. Trial implants were removed, the real femoral stem inserted, as was the appropriate head. After reducing, the leg was placed through range of motion and stability was confirmed anterior, posterior, and lateral. A 3 min Betadine soak was then performed, and thorough irrigation with normal saline followed. Closure of the capsule was performed with #1 PDS. Bleeding was confirmed to be controlled at this stage, and the TFL fascia was closed with #0 strata fix. Subcutaneous, and subcuticular closure was performed with 2-0 Vicryl and 4-0 Monocryl, respectively. Dressings were applied, and the patient was awoken from anesthesia and transferred the PACU in stable condition. A skilled biology laboratory assistant was critical for this case to aid in patient positioning, tissue retraction, acetabular and proximal femoral exposure, limb manipulation/positioning, dislocation/relocation, patient safety, and closure. PLAN: 1. Weight bear as tolerated operative extremity. 2. 23 hr perioperative antibiotics. 3. Ice. 4. PT/OT consults for ambulation assistance/mobility education. 5. Social work consult for discharge planning. 6. DVT prophylaxis with at SCDs, Thiago Brocke, and Xarelto x5 days followed by aspirin for a total of 1 month..
--- NOTE | 2022-12-02 14:49 | SUR.OPER ---
2 CM SKIN BRUISE NOTED NEAR INCISION AFTER PROCEDURE.
--- NOTE | 2022-12-02 15:02 | P.ANES_ITS ---
Anesthesia Charges Start Date/Time Anesthesia Start Date: 12/02/22 Anesthesia Start Time: 12:53 Stop Date/Time Anesthesia Stop Date: 12/02/22 Anesthesia Stop Time: 15:03 Summary Extremes of Age - Over 70 or under 1: RESIDENTIAL COORDINATOR
[2022-12-02] MEDS: fentaNYL 100 MCG/2 ML inj 50 MCG IVP (15:10)
[2022-12-02] MEDS: OXYCODONE 5 MG TABLET PO ×2 (17:48→21:29)
[2022-12-02] MEDS: LACTATED RINGERS 1000 ML 1,000 ML 75 ML IV (18:26)
--- NOTE | 2022-12-02 18:47 | PC.NURSE ---
End of Shift: Patient pleasant and cooperative. Patient vitally stable, lungs clear, BS WNL, IV running LR @75. Patient 1 assist, walker, gb. Patient currently rating pain 0/10, scheduled tylenol and 5 mg of tylenol given. Patient has urinated 200 ml. Patient tolerating regular diet. Patient up in chair for dinner.
--- NOTE | 2022-12-02 19:59 | P.IMCN_ITS ---
Date of Consult Patient: [facility] Patient Consult date: 12/02/22 Requesting Physician: Orthopedics Primary Care Provider: Melvin Lal MD Consult Narrative Reason for consult: hypertension Narrative: Ruddy Calhoun is a 77 year old male with hypertension who underwent an elective right total hip arthroplasty today by Dr. Quinonez. Ruddy's , Marilou, was in the room with him. Ruddy expressed concerns about his usual outpatient medications, particularly lisinopril. He said he has discussed this with Dr. Lal and Ruddy thinks he doesn't need it and that he's read a lot of bad stuff about it. He also said he takes his tamsulosin pretty regularly, but the other medications less faithfully, overall he takes his medications about 80% of the time. I recommended he take his medications faithfully and regularly so that it will be easier to determine if he needs them or if they can be pared down. He confirmed that he takes both lisinopril/HCTZ and triamterene/HCTZ. Review of Systems Status of ROS: Reports: 10 or more systems reviewed and unremarkable except as noted in History and below and 6 or more systems reviewed and unremarkable except as noted in History and below PFSH PFSH Medical History (Updated 12/02/22 @ 20:43 by Vickie Alvarenga MD) BPH (benign prostatic hyperplasia) Colon polyps Glaucoma Gout Hiatal hernia Hip arthritis Hypertension Low back pain Obstructive sleep apnea Pre-op exam Right hip pain Surgical History (Updated 12/02/22 @ 19:01 by Vickie Alvarenga MD) H/O colonoscopy (~2020) History of colon surgery History of repair of rotator cuff (12/09/18) History of selective injection of anesthetic agent around lumbar nerve root 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 Occassional cigar, quit 40 years ago. 2-3 glasses of wine since 1979. Denies recreational drugs. Highest level of school completed/degree received: 10th grade Smoking Status: Former smoker What tobacco products do you use: cigars Do you use any of these nicotine containing products: None Second hand tobacco smoke exposure: Yes How often do you have a drink containing alcohol: never AUDIT-C Alcohol total score: 0 Non-prescribed substance use: denies use Caffeine: Yes (occ coffee) Little interest or pleasure in doing things: not at all Feeling down, depressed, or hopeless: several days service: Yes (8 years) Meds Home Medications and Allergies Home Medications Medication Instructions Recorded Confirmed Type dorzolamide-timolol (PF) 2 %-0.5 % 1 drp ophthalmic (eye) BID 06/20/22 12/02/22 History eye drops in a dropperette lisinopril 20 1 tab PO DAILY 06/20/22 12/02/22 History mg-hydrochlorothiazide 25 mg tablet triamterene 37.5 1 cap PO QDAY 06/20/22 12/02/22 History mg-hydrochlorothiazide 25 mg capsule allopurinol 300 mg tablet 300 mg PO DAILY Gout 12/02/22 12/02/22 History Allergies Allergy/AdvReac Type Severity Reaction Status Date / Time No Known Drug Allergies Allergy Verified 12/02/22 10:38 Exam Narrative: Exam Narrative: General: No acute distress. Awake alert oriented x3. HEENT: Normocephalic atraumatic, pupils equally round and reactive to light and accommodation. Oropharynx clear. Mucous membranes are moist. No cervical lymphadenopathy, thyromegaly or carotid bruits. No JVD. Cardiovascular: Regular rate and rhythm. No murmurs, gallops, or rubs. Chest: No increased work of breathing. Clear to auscultation bilaterally. No crackles or wheezes. Abdomen: Bowel sounds present. Soft, nondistended, nontender. Extremities: Right hip bandage is clean, dry, and intact. No edema, no cyanosis or clubbing. Const: Vital Signs, click to edit/add: Vital Signs - 24 hr 12/02/22 11:57 12/02/22 12:36 12/02/22 12:40 Temperature 98.7 F Pulse Rate 106 H 72 77 Pulse Rate [Left P ulse Oximeter] Respiratory Rate 18 16 16 Blood Pressure 132/86 90/62 101/59 L Blood Pressure [Le ft Arm] Pulse Oximetry 95 94 98 Oxygen Delivery Me thod Room Air Nasal Cannula Nasal Cannula Oxygen Flow Rate 3 3 12/02/22 12:45 12/02/22 15:00 12/02/22 15:20 Temperature 98.7 F 97.4 F L Pulse Rate 78 98 90 Pulse Rate [Left P ulse Oximeter] Respiratory Rate 16 18 18 Blood Pressure 97/63 127/79 99/71 Blood Pressure [Le ft Arm] Pulse Oximetry 98 88 98 Oxygen Delivery Me thod Nasal Cannula Room Air Nasal Cannula Oxygen Flow Rate 3 3 12/02/22 15:05 12/02/22 15:10 12/02/22 15:15 Temperature Pulse Rate 96 89 89 Pulse Rate [Left P ulse Oximeter] Respiratory Rate 18 18 18 Blood Pressure 126/75 117/91 H 118/76 Blood Pressure [Le ft Arm] Pulse Oximetry 95 96 98 Oxygen Delivery Me thod Nasal Cannula Nasal Cannula Nasal Cannula Oxygen Flow Rate 4 4 4 12/02/22 15:25 12/02/22 15:29 12/02/22 15:36 Temperature 97.2 F L 97.9 F Pulse Rate 89 87 85 Pulse Rate [Left P ulse Oximeter] Respiratory Rate 18 18 Blood Pressure 104/83 104/79 Blood Pressure [Le ft Arm] 124/82 Pulse Oximetry 98 98 Oxygen Delivery Me thod Nasal Cannula Nasal Cannula Room Air Oxygen Flow Rate 3 3 12/02/22 15:46 12/02/22 16:00 12/02/22 16:15 Temperature 97.7 F 97.7 F 97.7 F Pulse Rate Pulse Rate [Left P ulse Oximeter] 87 85 85 Respiratory Rate 14 14 14 Blood Pressure Blood Pressure [Le ft Arm] 102/77 118/81 108/61 Pulse Oximetry 97 93 96 Oxygen Delivery Me thod Room Air Room Air Room Air Oxygen Flow Rate 12/02/22 16:45 12/02/22 16:43 12/02/22 17:00 Temperature 97.6 F 97.6 F 97.8 F Pulse Rate Pulse Rate [Left P ulse Oximeter] 99 100 98 Respiratory Rate 14 14 14 Blood Pressure Blood Pressure [Le ft Arm] 107/73 131/101 H 99/68 Pulse Oximetry 96 96 96 Oxygen Delivery Me thod Room Air Room Air Room Air Oxygen Flow Rate 12/02/22 17:30 12/02/22 18:30 Temperature 98.1 F 98.2 F Pulse Rate Pulse Rate [Left P ulse Oximeter] 95 117 H Respiratory Rate 14 14 Blood Pressure Blood Pressure [Le ft Arm] 100/78 116/85 Pulse Oximetry 96 92 Oxygen Delivery Me thod Room Air Room Air Oxygen Flow Rate Assessment and Plan Assessment and plan (1) Status post total replacement of right hip: Problem comment: OMERO-AA (12/02/2022, Dr. Quinonez) Status: Acute (2) Obstructive sleep apnea: Problem comment: uses CPAP Status: Chronic (3) Hypertension: Status: Chronic (4) Noncompliance with medications: Status: Acute Plan This is a 77-year-old male underwent an elective right total hip arthroplasty today. He is doing well postoperatively with minimal pain. Routine postop cares. VTE prophylaxis with rivaroxaban for 5 days and transitioning to twice a day baby aspirin. He has his CPAP with him tonight and uses it regularly at home. He is noncompliant with medications at home, taking them about 80% of the time. Blood pressure is low normal afternoon, so I will hold his usual antihypertensives. These can be resumed if he becomes hypertensive. I recommended to him and his that he take his medications regularly at home which would help determine whether or not these could be pared down.
[2022-12-02] MEDS: SENNOSIDES 1 TAB TABLET 2 TAB PO (20:21)
[2022-12-02] MEDS: FINASTERIDE 5 MG TABLET PO (21:29)
[2022-12-02] MEDS: TAMSULOSIN HCL 0.4 MG CAPSULE PO (21:29)
--- NOTE | 2022-12-03 03:13 | PC.NURSE ---
SHIFT NOTE 19-23: Pt A&O, pleasant and cooperative. Up 1 assist with walker and gait belt and tolerating well. Surgical dressing C/D/I, active ice on continuously. Pt denies SOB, CP, and N/V, tolerating regular diet well. PRN Oxycodone given for pain 10/25 with pt reporting good relief.
[2022-12-03 03:30] VITALS: BP 157/100; PULSE 77; RESP 16; TEMP 36.6; O2SAT 96
[2022-12-03] MEDS: CEFAZOLIN 2 GM in 0.9 % SODIUM CHLORIDE Mini-bag 100 ML IVPB (03:41)
[2022-12-03] MEDS: ACETAMINOPHEN 500 MG TABLET 1000 MG PO ×2 (03:41→11:45)
--- NOTE | 2022-12-03 06:48 | PC.NURSE ---
Pt is alert and oriented x3. Afebrile. Pt reports 2/10 pain in hip, pain managed with scheduled?Tylenol. Pt right hip dressing is CDI, area is warm and pink, and pt has strong pedal pulses with <3 cap refill in toes, pt is able to move and has sensation in his hip and leg.?Pt denies SOB, Chest pain, and N/V. Pt is up with A1 and tolerating a regular diet. Pt slept intermittently throughout night, pt was pleasant and cooperative.?
[2022-12-03 06:57] LABS: Basophils Percent Auto 0.1 % (0.0-3.0); Hemoglobin* 13.7 gm/dL (13.5-17.5); Immature Granulocytes Pct Auto 1.3 %; Mean Corpuscular HGB Conc 33 gm/dL (32-36); Mean Corpuscular Hemoglobin 29 pg (26-34); Mean Corpuscular Volume 90 fL (80-100); Monocytes Percent Auto 7.6 % (0.0-11.0); Platelet Count* 215 K/uL (140-440); RDW Coefficient of Variation % 14.1 % (11.5-15.5); Red Blood Count 4.66 m/uL (4.30-5.90); White Blood Count* 16.41 K/uL (4.50-11.00)
[2022-12-03 07:01] LABS: Slide Review Reflex No
[2022-12-03 07:19] LABS: Potassium* 4.1 mmol/L (3.6-5.1); Sodium* 135 mmol/L (135-149)
[2022-12-03 07:22] LABS: Creatinine* 1.1 mg/dL (0.5-1.5); Estimated Glomerular Filt Rate 70 ml/min
[2022-12-03 07:23] LABS: Blood Urea Nitrogen* 34 mg/dL (7-30)
[2022-12-03 08:15] VITALS: BP 132/75; PULSE 92; RESP 16; RESP 18; TEMP 36.7; O2SAT 95
[2022-12-03] MEDS: TAMSULOSIN HCL 0.4 MG CAPSULE PO (08:28)
[2022-12-03] MEDS: allopurinoL 300 MG TABLET PO (08:28)
[2022-12-03] MEDS: FINASTERIDE 5 MG TABLET PO (08:28)
[2022-12-03] MEDS: RIVAROXABAN 10 MG TABLET PO (08:28)
[2022-12-03] MEDS: CELECOXIB 200 MG CAPSULE PO (08:28)
--- NOTE | 2022-12-03 08:29 | PM.ORPN ---
Subjective Subjective Date Seen: 12/03/22 Principal diagnosis: Status postop day 1, right total hip arthroplasty - anterior approach Interval history: Patient reports doing well. No acute events over night. Pain managed with scheduled/PRN medications and ice. DVT prophylaxis rivaroxaban, bilateral knee high Thiago stockings, and SCDs. Denies fevers, chills, aches, N/V, CP, SOB/ZAMORANO, tachycardia, or lightheadedness. Ortho Exam Narrative Exam Narrative: -Patient appears comfortable in recliner; no apparent acute distress. present in room. -Alert and oriented times 3 -Operative hip moderately swollen; soft tissues supple; no obvious erythema. Area of ecchymosis, skin abrasion proximal to the wound/lower abdomen. Warmth appropriate. -Surgical dressing clean, dry, intact; no obvious drainage, no erythematous streaking peripheral to the bandage -Bilateral calves soft and supple; no significant swelling, edema, tenderness, erythema, discoloration, warmth, or palpable cords -2+ DP/PT pulses, intact dermatomes and myotomes distally (5/5 strength). Present numbness about the lateral femoral cutaneous nerve distribution. Const Vital Signs, click to edit/add: Vital Signs - 24 hr 12/02/22 11:57 12/02/22 12:36 12/02/22 12:40 Temperature 98.7 F Pulse Rate 106 H 72 77 Pulse Rate [Left Pulse Oximeter] Respiratory Rate 18 16 16 Blood Pressure 132/86 90/62 101/59 L Blood Pressure [Left Arm] Blood Pressure [Right Arm] Pulse Oximetry 95 94 98 Oxygen Delivery Method Room Air Nasal Cannula Nasal Cannula Oxygen Flow Rate 3 3 12/02/22 12:45 12/02/22 15:00 12/02/22 15:20 Temperature 98.7 F 97.4 F L Pulse Rate 78 98 90 Pulse Rate [Left Pulse Oximeter] Respiratory Rate 16 18 18 Blood Pressure 97/63 127/79 99/71 Blood Pressure [Left Arm] Blood Pressure [Right Arm] Pulse Oximetry 98 88 98 Oxygen Delivery Method Nasal Cannula Room Air Nasal Cannula Oxygen Flow Rate 3 3 12/02/22 15:05 12/02/22 15:10 12/02/22 15:15 Temperature Pulse Rate 96 89 89 Pulse Rate [Left Pulse Oximeter] Respiratory Rate 18 18 18 Blood Pressure 126/75 117/91 H 118/76 Blood Pressure [Left Arm] Blood Pressure [Right Arm] Pulse Oximetry 95 96 98 Oxygen Delivery Method Nasal Cannula Nasal Cannula Nasal Cannula Oxygen Flow Rate 4 4 4 12/02/22 15:25 12/02/22 15:29 12/02/22 15:36 Temperature 97.2 F L 97.9 F Pulse Rate 89 87 85 Pulse Rate [Left Pulse Oximeter] Respiratory Rate 18 18 Blood Pressure 104/83 104/79 Blood Pressure [Left Arm] 124/82 Blood Pressure [Right Arm] Pulse Oximetry 98 98 Oxygen Delivery Method Nasal Cannula Nasal Cannula Room Air Oxygen Flow Rate 3 3 12/02/22 15:46 12/02/22 16:00 12/02/22 16:15 Temperature 97.7 F 97.7 F 97.7 F Pulse Rate Pulse Rate [Left Pulse Oximeter] 87 85 85 Respiratory Rate 14 14 14 Blood Pressure Blood Pressure [Left Arm] 102/77 118/81 108/61 Blood Pressure [Right Arm] Pulse Oximetry 97 93 96 Oxygen Delivery Method Room Air Room Air Room Air Oxygen Flow Rate 12/02/22 16:45 12/02/22 16:43 12/02/22 17:00 Temperature 97.6 F 97.6 F 97.8 F Pulse Rate Pulse Rate [Left Pulse Oximeter] 99 100 98 Respiratory Rate 14 14 14 Blood Pressure Blood Pressure [Left Arm] 107/73 131/101 H 99/68 Blood Pressure [Right Arm] Pulse Oximetry 96 96 96 Oxygen Delivery Method Room Air Room Air Room Air Oxygen Flow Rate 12/02/22 17:30 12/02/22 18:30 12/02/22 19:30 Temperature 98.1 F 98.2 F 97.5 F L Pulse Rate Pulse Rate [Left Pulse Oximeter] 95 117 H 108 H Respiratory Rate 14 14 16 Blood Pressure Blood Pressure [Left Arm] 100/78 116/85 105/87 Blood Pressure [Right Arm] Pulse Oximetry 96 92 94 Oxygen Delivery Method Room Air Room Air Room Air Oxygen Flow Rate 12/02/22 20:30 12/02/22 21:30 12/02/22 12:05 Temperature 97.7 F 97.9 F 97.7 F Pulse Rate Pulse Rate [Left Pulse Oximeter] 110 H 100 100 Respiratory Rate 18 16 18 Blood Pressure Blood Pressure [Left Arm] 124/78 129/82 112/81 Blood Pressure [Right Arm] Pulse Oximetry 95 95 94 Oxygen Delivery Method Room Air Room Air CPAP Oxygen Flow Rate 12/02/22 23:00 12/03/22 03:30 Temperature 97.8 F Pulse Rate Pulse Rate [Left Pulse Oximeter] 100 77 Respiratory Rate 16 Blood Pressure Blood Pressure [Left Arm] Blood Pressure [Right Arm] 157/100 H Pulse Oximetry 96 Oxygen Delivery Method Room Air Oxygen Flow Rate Assessment and Plan Assessment and plan (1) Status post total replacement of right hip: Problem details: POD1 right OMERO-AA (12/02/2022, Dr. Quinonez) Status: Acute (2) Obstructive sleep apnea: Problem details: uses CPAP Status: Chronic (3) Hypertension: Status: Chronic (4) Noncompliance with medications: Status: Acute Plan - Complete 23 hour perioperative antibiotics. - PT/OT consult for education and assistance. - Social work consult for discharge planning - Prescribed analgesics as needed - DVT prophylaxis: Rivaroxaban, then transition to aspirin, bilateral knee high Thiago Hose stockings and SCDs - Anticipation is for discharge to home with spouse 12/03/2022 if the patient remains medically stable, pain is controlled, and they are safe with mobilization.
--- NOTE | 2022-12-03 08:32 | PM.DS1 ---
DS: Providers Provider Date Seen: 12/03/22 Date of admission: Med/Surg Recovery 12/02/2022 Primary care physician: Melvin Lal MD Consults: 12/02/22 15:35 Consult to Occupational Therapy [CONS] Routine Comment: Reason(s) for OT Consult:: ADLs Prior to Discharge Any Restrictions?:: No Restrictions Comment: Consult to Physical Therapy [CONS] Routine Comment: Ambulate in the [facility]pson today Reason(s) for PT Consult:: Evaluate and Treat Any Restrictions?:: No Restrictions Comment: Nursing Activity Consult to Physician [CONS] Routine Comment: Consulting Provider: Hospitalists Has provider been notified: No Consult to Information Systems Administrator [CONS] Routine Comment: Reason for Consult:: Discharge Planning Needs Attending Physician on discharge: Cristian Quinonez MD Date of Discharge: 12/03/22 DS: Diagnosis Discharge Diagnosis (1) Status post total replacement of right hip: Status: Acute Problem details: POD1 right OMERO-AA (12/02/2022, Dr. Quinonez) DS: Summary Hospital Course Hospital Course: The patient has a history of right hip osteoarthritis, primary, severe. After appropriate preoperative evaluation, the patient underwent right total hip arthroplasty. Postoperatively given anticoagulation for deep vein thrombosis prophylaxis. They progressed to PT/OT and were felt ready and prepared for discharge to home with appropriate pain medication and anticoagulation medications. Patient also has a history of right lower back pain with right radiculopathy. Has been treated for this in the past. Chronic, his back is not bothering him. Status at Discharge Functional status at discharge: uses cane/walker Overall status at discharge: patient is progressing back to baseline Time Spent with Patient Time attestation: Total time spent providing and/or coordinating discharge services: Time spent: Less than 30 minutes Exam Const: Vital Signs, click to edit/add: Vital Signs - 24 hr 12/02/22 11:57 12/02/22 12:36 12/02/22 12:40 Temperature 98.7 F Pulse Rate 106 H 72 77 Pulse Rate [Left P ulse Oximeter] Respiratory Rate 18 16 16 Blood Pressure 132/86 90/62 101/59 L Blood Pressure [Le ft Arm] Blood Pressure [Ri ght Arm] Pulse Oximetry 95 94 98 Oxygen Delivery Me thod Room Air Nasal Cannula Nasal Cannula Oxygen Flow Rate 3 3 12/02/22 12:45 12/02/22 15:00 12/02/22 15:20 Temperature 98.7 F 97.4 F L Pulse Rate 78 98 90 Pulse Rate [Left P ulse Oximeter] Respiratory Rate 16 18 18 Blood Pressure 97/63 127/79 99/71 Blood Pressure [Le ft Arm] Blood Pressure [Ri ght Arm] Pulse Oximetry 98 88 98 Oxygen Delivery Me thod Nasal Cannula Room Air Nasal Cannula Oxygen Flow Rate 3 3 12/02/22 15:05 12/02/22 15:10 12/02/22 15:15 Temperature Pulse Rate 96 89 89 Pulse Rate [Left P ulse Oximeter] Respiratory Rate 18 18 18 Blood Pressure 126/75 117/91 H 118/76 Blood Pressure [Le ft Arm] Blood Pressure [Ri ght Arm] Pulse Oximetry 95 96 98 Oxygen Delivery Me thod Nasal Cannula Nasal Cannula Nasal Cannula Oxygen Flow Rate 4 4 4 12/02/22 15:25 12/02/22 15:29 12/02/22 15:36 Temperature 97.2 F L 97.9 F Pulse Rate 89 87 85 Pulse Rate [Left P ulse Oximeter] Respiratory Rate 18 18 Blood Pressure 104/83 104/79 Blood Pressure [Le ft Arm] 124/82 Blood Pressure [Ri ght Arm] Pulse Oximetry 98 98 Oxygen Delivery Me thod Nasal Cannula Nasal Cannula Room Air Oxygen Flow Rate 3 3 12/02/22 15:46 12/02/22 16:00 12/02/22 16:15 Temperature 97.7 F 97.7 F 97.7 F Pulse Rate Pulse Rate [Left P ulse Oximeter] 87 85 85 Respiratory Rate 14 14 14 Blood Pressure Blood Pressure [Le ft Arm] 102/77 118/81 108/61 Blood Pressure [Ri ght Arm] Pulse Oximetry 97 93 96 Oxygen Delivery Me thod Room Air Room Air Room Air Oxygen Flow Rate 12/02/22 16:45 12/02/22 16:43 12/02/22 17:00 Temperature 97.6 F 97.6 F 97.8 F Pulse Rate Pulse Rate [Left P ulse Oximeter] 99 100 98 Respiratory Rate 14 14 14 Blood Pressure Blood Pressure [Le ft Arm] 107/73 131/101 H 99/68 Blood Pressure [Ri ght Arm] Pulse Oximetry 96 96 96 Oxygen Delivery Me thod Room Air Room Air Room Air Oxygen Flow Rate 12/02/22 17:30 12/02/22 18:30 12/02/22 19:30 Temperature 98.1 F 98.2 F 97.5 F L Pulse Rate Pulse Rate [Left P ulse Oximeter] 95 117 H 108 H Respiratory Rate 14 14 16 Blood Pressure Blood Pressure [Le ft Arm] 100/78 116/85 105/87 Blood Pressure [Ri ght Arm] Pulse Oximetry 96 92 94 Oxygen Delivery Me thod Room Air Room Air Room Air Oxygen Flow Rate 12/02/22 20:30 12/02/22 21:30 12/02/22 12:05 Temperature 97.7 F 97.9 F 97.7 F Pulse Rate Pulse Rate [Left P ulse Oximeter] 110 H 100 100 Respiratory Rate 18 16 18 Blood Pressure Blood Pressure [Le ft Arm] 124/78 129/82 112/81 Blood Pressure [Ri ght Arm] Pulse Oximetry 95 95 94 Oxygen Delivery Me thod Room Air Room Air CPAP Oxygen Flow Rate 12/02/22 23:00 12/03/22 03:30 Temperature 97.8 F Pulse Rate Pulse Rate [Left P ulse Oximeter] 100 77 Respiratory Rate 16 Blood Pressure Blood Pressure [Le ft Arm] Blood Pressure [Ri ght Arm] 157/100 H Pulse Oximetry 96 Oxygen Delivery Me thod Room Air Oxygen Flow Rate DS: Data Data Completed and Pending Labs on day of discharge: Labs from last 24 hours 12/03/22 12/03/22 06:43 06:43 WBC 16.41 H RBC 4.66 Hgb 13.7 Hct 42.0 MCV 90 MCH 29 MCHC 33 RDW Coeff of Josef 14.1 Plt Count 215 Neut % (Auto) 85.0 H Lymph % (Auto) 6.0 L Barnwell % (Auto) 7.6 Eos % (Auto) 0.0 Baso % (Auto) 0.1 Neut # (Auto) 13.90 H Lymph # (Auto) 1.00 Barnwell # (Auto) 1.20 H Eos # (Auto) 0.00 Baso # (Auto) 0.00 Sodium 135 Potassium 4.1 BUN 34 H Creatinine 1.1 Estimated Creat Clear 49.70 Estimated GFR 70 Discharge Plan Discharge Disposition: Home, Self-Care Discharging Surgeon: Cristian Quinonez Follow-Up Appointment: 1 week PO with JC Marcial Prescriptions: New sennosides-docusate sodium [Senna-S] 8.6-50 mg tablet 1 - 4 tab-cap PO BID PRN (Reason: constipation) Qty: 60 0RF Rx Instructions: Hold medication if experiencing loose stools. aspirin 81 mg tablet,delayed release (DR/EC) 81 mg PO BID Qty: 50 0RF Rx Instructions: Medication to help prevent blood clots postoperatively; take TWICE daily. acetaminophen 500 mg capsule 500 - 1,000 mg PO Q6H MDD 4000mg PRNQty: 100 0RF oxycodone 5 mg tablet 2.5 - 5 mg PO Q4-6H MDD 6 PRN (Reason: pain) Qty: 42 0RF Rx Instructions: Take as needed for postop pain: 2.5mg mild pain, 5mg moderate-severe pain; wean as tolerated. rivaroxaban 10 mg tablet 10 mg PO DAILY Qty: 4 0RF Rx Instructions: Medication for deep vein clot prevention post surgery. Complete this medication before starting Aspirin. Continued triamterene-hydrochlorothiazid 37.5-25 mg capsule 1 cap PO QDAY lisinopril-hydrochlorothiazide 20-25 mg tablet 1 tab PO DAILY dorzolamide-timolol (PF) 2-0.5 % dropperette 1 drp ophthalmic (eye) BID Rx Instructions: BOTH EYES allopurinol 300 mg tablet 300 mg PO DAILY finasteride 5 mg tablet 5 mg PO QDAY Qty: 90 3RF tamsulosin [Flomax] 0.4 mg capsule 0.4 mg PO BID Qty: 90 3RF Activity Level: Activity as Tolerated, Weight Bearing as Tolerated, Use Cane and Use Walker Activity Detail: Wound: ?Do not remove original dressing; we will remove this at first postop visit in 1 week. Only remove dressing if integrity is in question. ?No immersing wound in water; showering okay; light scrub with your hand and body soap, rinse, dab dry ?Sutures are under the skin, will dissolve; allow surgical glue to come off naturally; do not scrub the wound or apply ointments/lotions ?Call our office with any redness that streaks, excessive drainage from the wound, or wound gapping. Ice/Elevate: ?Ice as needed for swelling and discomfort (cryocuff or ice pack); elevate frequently above the heart DEVI socks: ?Wear for 1 month, remove for 1 hour 3 times per day ?These are frustrating to take on/off, but are important for blood clot prevention for 1 month after surgery Blood Clot Prevention (DVT): ?Medication: Rivaroxaban, and transition to 81 mg aspirin by mouth twice daily (total one month of protection). Driving: ?Do not drive while taking narcotic pain medication ?Anticipate 4-6 weeks no driving if operative leg is driving leg Dental: ?No elective dental work for 6 months post-op. If there is an urgent/emergent dental need, contact our office for an antibiotic prescription. Smoking/Alcohol: ?Do not smoke; do no drink alcohol especially when taking postoperative oral narcotic medication Seek Care from you Primary Care Provider if you experience the following issues in the postoperative phase and beyond: ?Bacterial infections such as: pneumonia, bacterial skin infection (cellulitis), UTI, high fever, chills unrelated to the operative body part - call your primary care physician urgently for treatment in hopes to protect your health and the metal implant. Referrals: ?PT, OT per patient preference - evaluate treat total hip arthroplasty protocol (gait training, ROM, ADLs) Follow up: ?Ortho surgeon follow-up in 6 weeks; repeat radiographs AP pelvis, cross-table lateral operative hip ?PA-C visit in 1 week *If there are any acute concerns regarding your surgery, please call our orthopedic clinic ([phone]) Discharge Diet: Regular Patient Instructions: Acetaminophen (By mouth), Aspirin (By mouth), Oxycodone, Rapid Release (By mouth), Rivaroxaban (By mouth), Senna (By mouth), Surgical Site Infections (DC), Total Hip Replacement (DC) Forms: Work/School Release Follow-up: Melvin Lal MD [Primary Care Provider] - Discharge Orders: Discharge Order (Routine); Ordered 12/03/22 Ordered By: Aniket Guzmán
[2022-12-03 10:41] VITALS: BP 104/79; PULSE 85; RESP 16; TEMP 36.6
--- NOTE | 2022-12-03 11:47 | PC.SOCIAL ---
Met with pt and pt's in pt's room to discuss discharge plans. Pt has assistance from pt's in recovery at home and has the home setup for recovery. Pt is not in need of any resources. Informed pt and pt's if they have any questions they can reach out to the social work department.
--- NOTE | 2022-12-03 12:56 | PC.NURSE ---
VSS AND AFEBRILE. TOLERATING REGULAR DIET WITH NO C/O N/V. PAIN CONTROLLED WITH TYLENOL. DRESSING CDI. SALINE LOCK DC'D. REVIEWED DC INSTRUCTIONS WITH PATIENT AND HIS . BOTH DENIED QUESTIONS OR CONCERNS. PATIENT DC'D HOME WITH .
== END 2022-12-03 11:55 | disposition home or self-care (01) ==
LOC: OR 11:17 → MEDSURG 11:19
PROVIDERS: PCP Internal Medicine; Visit Provider Orthopaedic Surgery Sports Medicine
PROC: (CPT 27130; principal; 2022-12-02 12:15)
DX: M16.11 Unilateral primary osteoarthritis, right hip (principal); G47.33 Obstructive sleep apnea (adult) (pediatric); I10 Essential (primary) hypertension; Z91.14 Patient's other noncompliance with medication regimen; M54.16 Radiculopathy, lumbar region
CPT/HCPCS: 27130; 01214; 36415; 64450; 73501; 76000; 76942; 82565; 84132; 84295; 84520; 85025; 97110; 97116; 97162; 97165; 99100; A9270; C1776; J0330; J0690; J1100; J1170; J2250; J2370; J2405; J2704; J2710; J2795; J3010; J7120

== ENCOUNTER 2023-03-13 11:15 | Outpatient (RCR) | payer MEDICARE, SELFPAY ==
--- NOTE | 2022-07-22 15:28 | PT.OPE ---
PT [place] Outpatient Eval PT [facility] Outpatient Eval Start: 07/22/22 08:57 Freq: Status: Active Protocol: Document 07/22/22 08:57 LSL (Rec: 07/22/22 10:07 LSL [id number]) E-signed By Danni Edwards PT Physical Therapy Outpatient Evaluation Insurance Information Recert Due Date 10/18/22 Insurance Name Medicare B,Blue Cross/Blue Shield Insurance Information/Comments Medicare Advantage Medical Diagnosis LBP Treating Diagnosis weakness, pain, impaired ROM Referring MD Lal Subjective Subjective Walking up a very steep hill and stairs over Day weekend. When walking down the hill I noticed my leg was very painful. I saw a surgeon and they found I had some bad discs in my back and they found B hip OA. And then I had a sciatic nerve problem in my R leg. I had a cortisone injection in the end of May and it helped a lot with pain. It made an immediate difference and has just been improving. I used a walker for longer distances but for household ambulation no AD. I have trouble lifting my R leg into bed. It's hard to get into the van. Pt. has a constant pain in the glut med region. I feel pain in the anterolateral knee on occasion. Pt. reports B significantly flat feet and have worn specialized shoes since early . R leg feels like it just won't support things. L leg feels strong. I want to be able to walk again without a walker and play 9 holes of golf someday. I will see a spine surgeon (Dr. Willoughby) this week. Wearing copper fit orthotics over past year have helped improve his ability to walk comfortably and the longer I was on my feet the pain would start in my lower legs and move all the way up my back. Pain Comments 2/10 best, 9/10 worst Date of Last Physician Visit 07/04/22 Current Work Status Retired Preferred Name Brayan Zabala Weight Bearing Status Full Weight Bearing Therapy Limitations/Systems Review Not Limited Objective Range of Motion Assess lumbar ROM next session Strength Ankle - L inversion 3-/5, L PF 1/5, evs and DF 5/5, R PF 1/5 , all others 5/5 Knee - L HS 4+/5, all others 5 /5 B, unable to maintain R SLR Hip - R IR 4-/5 with pain, R ER 5/5, R flexion 4/5 with pain in thigh, R abduction 2+/ 5 L IR and ER 5/5, L flexion 5 /5, L abduction 4-/5 Trunk - upper abdominals 1/5, lower abdominals 1/5 Palpation Nothing except R adductors tender in leg, assess back next session Balance & Gait GAIT - using 4WW with significant decreased stance B , walks in flexion leaning forearm on walker SLB - less than 1 second with upper body support Posture significant pes planus Sensation/Reflexes B patellar intact, L achilles intach, R achilles absent Other/Pertinent Objective Special - negative Tong's, + Fadir's Assessment Assessment/Impression Pt. is a 76 y/o male who presents with leg weakness, impaired gait and impaired balance with history of injection toward the end of May that has helped somewhat. He feels much of his issues are related to his flat feet and while this may be contributory he appears to be having symptoms of neurogenic claudication and an orthopedic R hip issue. He is very weak in the R hip musculature and while spinal imaging showed L3-4 stenosis centrally and peripherally the L side was significantly worse and his left hip is stronger than his right. He has limited calf strength bilaterally, R hip weakness with pain on Fadir's and further evaluation of his back will be completed at his second visit. He does not have the core strength to remain upright even when using his walker to walk. Treatment will be geared toward therex, NM re-ed and manual therapy because there are certainly many areas to work on strength, coordination , balance and gait. Additionally further imaging of her R hip is warranted. Primary Functional Limitations walking, lifting, dressing ( shoes) Plan of Care Rehabilitation Potential Good Physical Therapy Goals SHORT TERM GOALS: (2-3 weeks) 1. Pt. able to lay on his back with his legs out straight. 2. Pt. able to ambulate 100 feet with 4WW remaining upright. 3. Pt. able to transition supine to/from sit with proper body mechanics without cueing . 4. Pt. to demonstrate increased R hip abductor strength by 1/2 grade. 5. Pt. able to don/doff socks/ shoes independently. HOUSE PAINTING INSTRUCTOR GOALS: (4+ weeks) 1. Pt. able to walk for 20 minutes using WW and progressing to SPC if able. 2. Pt. to have 4/5 or greater R hip abductor and flexor strength to lift leg into car/ bed with pain less than 3/10. Coordination/Communication With Referral Source Treatment Plan/Direct Interventions Gait Training,Joint Mobilization,Manual Therapy, Neuromuscular Re-ed,Self-Care/ Home Management Frequency/Duration 2x/week 6 weeks Patient Will Be Discharged From Therapy Completion of LTG(s),Skills Plateau,Independent w/HEP, Independently Progressing Evaluation Billing Complexity Moderate Certification Information Initial Certification Date 07/22/22 Ending Certification Date 10/18/22 Provider Signature Shows Agreement With POC & Medical Necessity Physician Signature & Date Requested Please Sign/Date Here Physician Comment/Change : Physician NPI Number #
--- NOTE | 2022-10-07 15:44 | PT.OPDN ---
[facility] Out[facility] Daily Note PT [facility] Outpatient Daily Note Start: 07/22/22 08:57 Freq: Status: Active Protocol: Document 10/07/22 14:23 LSL (Rec: 10/07/22 15:37 LSL [id number]) E-signed By Danni Edwards, PT PT OP Daily Progress Note Visit Information Note Type Daily Note,Re-Evaluation Visit Number 1 Running Total Visit Number 8 Insurance Authorized Visits no auth required Physician Authorized Visits eval & treat Insurance Information Recert Due Date 10/18/22 Insurance Name Medicare B,Blue Cross/Blue Shield Insurance Information/Comments Medicare Advantage Medical Diagnosis LBP Treating Diagnosis weakness, pain, impaired ROM Referring MD Cristiano Subjective Subjective Pt. reports he was seen by ortho for his hip and told to return to strengthen hip muscles. I notice steady improvement most of the time in the sense of pain and getting in and out of the bed/ car. The steroid shot is fading. Pool exercises are going well. Able to do [id number] repetitions in the pool but once he gets past 30 he gets stiff the next day. Pt. reports he uses the WC for any long distances like to the car or pool and uses his walker in the house. Preferred Name Brayan Precautions Weight Bearing Status Full Weight Bearing Home Exercise Home Exercise Comments TA bracing, laying flat in supine. Pool program [id number], [id number] [employer]: [id number], seated heel raises, TB PF seated, sit to stand, SLR, seated hip flexion, hip abd TB seated, supine QS, sidelying clamshell Objective Other/Pertinent Objective STRENGTH - hip flexion 3-/5, IR 5.5, ER 4-/5; knee 5/5 GAIT - severely antalgic with decreased stance on R using 4WW - pt. eager to move to quad cane therefore trialed and he is not currently ready to use something like this as his UE stability with it is not good enough to compensate for his LE gait pattern ROM - no significant change BED MOBILITY - poor but able to complete with SBA BALANCE - poor B SL Patient Instructed in Risks/Benefits Yes Therapeutic Exercise Therapeutic Exercise Minutes (minutes) 25 Therapeutic Exercise: To Restore -SLR 10x Functional Status -hooklying hip abd GTB 10x -seated hip add squeeze 10x -squat with GTB -hip IR GTB 10x -squat with ball squeeze 2x Self Care Management Training Self-Care Activity Minutes (minutes) 10 Self Care Management Training Pt. and spouse received instruction in use of TENS for pain management. Pulse width set for 120, frequency 50 Hz to start and modulated setting . Given instruction on type of electrode to look for on [employer] and benefit of newer units being rechargeable if they find they are going through a large number of batteries with this older model that was loaned to them. Instructed on set up of electrodes AP hip and sup/inf greater trochanter. Treatment Minutes Untimed Code Treatment Minutes 20 Timed Code Treatment Minutes 35 Total Treatment Time 55 Billing Units Self-Care Activity Units 1 Therapeutic Exercise Units 1 Re-Evaluation Units 1 Assessment/Impression Assessment/Impression Pt. is stronger than he was when he came in last session and minimally more independent in bed mobility. He tolerated more exercise today than in past sessions. His gait remains severely antalgic with decreased stance on the right , but in stance he is able to stand upright for a longer amount of time, however this is not very long. His balance remains poor. Treatment will be geared towards increasing his strength and ROM to allow for OMERO. Plan of Care Physical Therapy Goals SHORT TERM GOALS: (2-3 weeks) 1. Pt. able to lay on his back with his legs out straight. ( improved 4-5 nights in bed)) 2. Pt. able to ambulate 100 feet with 4WW remaining upright. 3. Pt. able to transition supine to/from sit with proper body mechanics without cueing .(very difficult and still needs cueing and assistance) 4. Pt. to demonstrate increased R hip abductor strength by 1/2 grade. 5. Pt. able to don/doff socks/ shoes independently. (MET) NETWORK CONSULTANT GOALS: (4+ weeks) 1. Pt. able to walk for 20 minutes using WW and progressing to SPC if able. 2. Pt. to have 4/5 or greater R hip abductor and flexor strength to lift leg into car/ bed with pain less than 3/10. Daily Plan of Care Continue per POC Daily Plan of Care Comments Delaney, SHELLEY re-ed, manual therapy, gait training, joint mobs Recertification Information Recertification Start Date 10/18/22 Recertification Due Date 01/10/23 Reasons to Continue Skilled Therapy severe OA in hip and OA in spine with weakness and pain, decreased function, impaired gait Rehabilitation Potential Fair until surgery Continued Plan of Care and Interventions therex, NM re-ed, modalities prn Provider Signature Shows Agreement With POC & Medical Necessity Physician Comment/Change Comment or Changes
== END 2023-03-13 13:02 | disposition home or self-care (01) ==
PROVIDERS: PCP Internal Medicine; Visit Provider Orthopaedic Surgery Sports Medicine
DX: M54.50 Low back pain, unspecified (principal); M16.11 Unilateral primary osteoarthritis, right hip; R29.898 Other symptoms and signs involving the musculoskeletal system; Z96.641 Presence of right artificial hip joint; R26.81 Unsteadiness on feet; R26.9 Unspecified abnormalities of gait and mobility; R53.1 Weakness; Z51.89 Encounter for other specified aftercare
CPT/HCPCS: 80048; 97032; 97110; 97112; 97116; 97140; 97162; 97164; 97530; 97535; J2250; J3010

== ENCOUNTER 2023-09-16 09:30 | Outpatient (CLI) | payer MEDICARE, SELFPAY | END 2023-09-16 09:31 | disposition home or self-care (01) | PROVIDERS: PCP Internal Medicine; Visit Provider Internal Medicine | DX: Z00.00 Encounter for general adult medical examination without abnormal findings (principal); I10 Essential (primary) hypertension; M10.9 Gout, unspecified; Z01.818 Encounter for other preprocedural examination; Z13.6 Encounter for screening for cardiovascular disorders; Z12.5 Encounter for screening for malignant neoplasm of prostate | CPT/HCPCS: 80053; 80061; G0103 ==